=== PATIENT | female | born 1965 | race Caucasian/White ===

== ENCOUNTER 2021-10-24 19:09 | Outpatient (REF) | payer MEDICAID, SELFPAY ==
[2021-10-24 19:46] LABS: HCT 42.3 % (36.0-46.0); HGB 13.5 g/dL (11.2-15.7); MCH 30.7 pg (27.0-33.0); MCHC 31.9 % (32.0-36.0); MCV 96.1 fL (80-95); MPV 9.7 fL (8.0-11.0); Platelet Count 245 10^3/uL (130-400); RDW 13.1 % (11.7-14.6); RDW-SD 46.2 fL; WBC 5.79 10^3/uL (4.4-10.8)
[2021-10-24 20:02] LABS: ALT 23 U/L (14-59); AST 15 U/L (15-37); Albumin 3.6 g/dL (3.4-5.0); Alkaline Phosphatase 117 U/L (46-116); Anion Gap 4.3 mmol/L (3-11); BUN 12 mg/dL (7-18); Bilirubin, Total 0.4 mg/dL (0.2-1.0); CO2 33.7 mmol/L (21.0-32.0); CREATININE 0.8 mg/dL (0.55-1.02); Calcium 8.7 mg/dL (8.5-10.1); Chloride 104 mmol/L (98-107); Glucose 91 mg/dL (74-106); NT-proBNP 265 pg/mL (<300); Potassium 4.1 mmol/L (3.5-5.1); Sodium 142 mmol/L (136-145); Total Protein 6.9 g/dL (6.4-8.2)
[2021-10-27 10:17] LABS: Hepatitis B Surface Ag Negative (Negative)
[2021-10-27 10:38] LABS: Hepatitis C Ab w Rflx HCV PCR Negative (Negative)
== END 2021-10-24 19:10 | disposition home or self-care (01) ==
LOC: NCHCN 19:09
PROVIDERS: PCP General Practice; Visit Provider Family Medicine
DX: R06.02 Shortness of breath (principal); Z13.9 Encounter for screening, unspecified; Z11.59 Encounter for screening for other viral diseases
CPT/HCPCS: 80053; 85027; 86803; 87340; 83880

== ENCOUNTER 2021-12-16 17:56 | Inpatient (IN) | payer MEDICAID, SELFPAY ==
[2021-12-16] VITALS (38 sets, daily range): BP systolic 111–203; BP diastolic 62–98; PULSE 84–118; RESP 4–30; TEMP 36.3–37.5; O2SAT 77–99
--- NOTE | 2021-12-16 18:00 | RT.EKG_ITS ---
APPROVED REPORT Exam: Resting ECG Reason for Exam: SOB Patient Location: E HR:98 bpm ECG Measurements Heart Rate 98 [place]IS [place] [id number] P [id number] QRSd 90 QRS 1 QT 335 T 66 QTc 428 Conclusion Atrial fibrillation...V-rate 95-102, irreg A-activity. Sinus. P waves visible. No STEMI. I have reviewed and interpreted ECG and agree with software generated interpretation.
--- NOTE | 2021-12-16 18:00 | DI.RAD_ITS ---
Exam(s) XR PORTABLE CHEST AP EXAM: XR PORTABLE CHEST AP CLINICAL HISTORY: cough, sob, r/o acute disease TECHNIQUE: COMPARISON: No exams were available for comparison FINDINGS: Portable AP chest [place] [address] angiography was also performed today and showed multiple ground- glass opacities in both lungs. There are predominantly peripheral intrapulmonary infiltrates seen bi laterally on this radiograph, predominantly in right upper lobe and left lower lobe/lingula. Again, the appearance is consistent with multifocal pneumonia. No gross pleural effusion on this frontal fi lm. IMPRESSION: RADIATION DOSE DELIVERED: Total DLP
--- NOTE | 2021-12-16 18:14 | ED.GENADUL_ITS ---
Discharge Plan Disposition Patient Disposition: [facility] INPATIENT Condition: Improving Discharge Details Clinical Impression: SARS-CoV-2 positive, Pneumonia due to 2019 novel coronavirus, Multifocal pneumonia, Hypoxia, Requires supplemental oxygen Admit Date/Time: 12/16/21 19:32 Admit Provider: Denisse Rodriguez Attending Provider: Denisse Rodriguez Primary Care Provider: Jaime Bangura ED Provider: Dorothy Flores Discharge Data Discharge Date/Time-TO BE ENTERED AT DEPARTURE: 12/16/21 23:39 Medical Decision Making 1819 -- 55-year-old female with a history of COPD presents from urgent care for hypoxia of 77% with a report of cough and shortness of breath for the past week. Oxygen saturation 50s on room air on arrival, increased to 97 to 100% on nonrebreather. Patient appears otherwise comfortable, speaking in 3-4 word sentences but does not appear in acute severe respiratory distress. She has diminished breath sounds and wheezing throughout. Differential diagnosis includes acute COPD exacerbation, coronavirus, pneumonia, PE. Will place an IV, bolus IV fluids, screening labs, D-dimer, EKG, portable chest x-ray, COVID swab and give duo nebs, albuterol, Solu-Medrol and reassess. 1899 -- Patient reassessed and breath sounds improved significantly after neb treatments. Oxygen saturation 93% on 4 L nasal cannula. Due to patient's morbid obesity and concern for potential worsening, patient placed on high flow nasal cannula at 30 L/min with 90% FiO2 and oxygen saturation 100%. She was decreased to 55% FiO2 at 60 L/min and oxygen saturation mid 90s. Case discussed with hospitalist who accepts patient for admission. D-dimer and COVID pending. 1914 -- Labs and imaging reviewed. White blood cell count 4. Hemoglobin 12.4. Troponin negative BNP 265. COVID positive. D-dimer 4716. Chest x-ray notes multifocal pneumonia. 1944 -- Dr. Rodriguez again notified of d-dimer results and COVID-positive. CT chest ordered. 2019 -- Pt has remained hemodynamically stable w/ O2 sats mid-high 90s on 60L/min, 55% FiO2 high flow nasal cannula. She appears comfortable and tolerating HFNC well and breathing improved. 2099 -- Case endorsed to Dr. Jackson to follow-up on CT chest results with hospitalist if pt remains in the ED after CT completed. Medical Records Medical records reviewed: Yes I reviewed the patient's medical records. Imaging Data Radiologic Study: Radiologist's impression: XR Chest Exam date and time: 12/16/2021 6:14 PM Age: 55 years old Clinical indication: Cough and shortness of breath; Patient HX: R/O acute disease TECHNIQUE: Imaging protocol: XR of the chest. Views: 1 view. COMPARISON: No relevant prior studies available. FINDINGS: Lungs: Scattered patchy pulmonary opacities, bilaterally. Pleural spaces: Unremarkable. No pleural effusion. No pneumothorax. Heart/Mediastinum: Mild cardiomegaly. Bones/joints: Unremarkable. IMPRESSION: Multifocal pneumonia. Lab Data Lab results reviewed: Yes I reviewed the patient's lab results. Labs: 12/16/21 19:25 Blood Blood Culture - Pending 12/16/21 19:25 Blood Blood Culture - Pending Laboratory Tests Range/Units 12/16/21 12/16/21 12/16/21 18:20 18:30 18:30 WBC (4.4-10.8) 10^3/uL 4.95 RBC (3.93-5.22) 10^6/uL 4.15 Hgb (11.2-15.7) g/dL 12.4 Hct (36.0-46.0) % 39.4 MCV (80-95) fL 94.9 MCH (27.0-33.0) pg 29.9 MCHC (32.0-36.0) % 31.5 L RDW (11.7-14.6) % 14.0 Plt Count (130-400) 10^3/uL 147 MPV (8.0-11.0) fL 9.4 Immature Gran % 0.6 Neutrophils % 72.5 Lymphocytes % 16.6 Monocytes % 9.9 Eosinophils % 0.2 Basophils % 0.2 Nucleated RBC % % 0 Absolute Neutrophils (1.2-6.7) 10^3/uL 3.59 Absolute Lymphocytes (1.2-3.4) 10^3/uL 0.82 L Absolute Monocytes (0.1-0.8) 10^3/uL 0.49 Absolute Eosinophils (0.0-0.7) 10^3/uL 0.01 Absolute Basophils (0.0-0.2) 10^3/uL 0.01 RBC Morphology Normal D-Dimer (<500) ng/mlFEU Sodium (136-145) mmol/L 135 L Potassium (3.5-5.1) mmol/L 4.2 Chloride (98-107) mmol/L 99 Carbon Dioxide (21.0-32.0) mmol/L 28.7 Anion Gap (3-11) mmol/L 7.3 BUN (7-18) mg/dL 15 Creatinine (0.55-1.02) mg/dL 0.7 Estimated GFR/1.73 m2 (mL/min/1.73m2) >= 60.00 Glucose (74-106) mg/dL 93 Calcium (8.5-10.1) mg/dL 8.2 L Magnesium (1.8-2.4) mg/dL 1.8 Total Bilirubin (0.2-1.0) mg/dL 0.6 AST (15-37) U/L 38 H ALT (14-59) U/L 26 Alkaline Phosphatase (46-116) U/L 93 Troponin I (<or=60) ng/L < 50 Total Protein (6.4-8.2) g/dL 7.1 Albumin (3.4-5.0) g/dL 3.3 L COVID-19 Source Nasal/Nares SARS-CoV-2 (PCR) (Negative) POSITIVE A* Influenza Type A (PCR) (Negative) Negative Influenza Type B (PCR) (Negative) Negative RSV (PCR) (Negative) Negative Range/Units 12/16/21 18:30 WBC (4.4-10.8) 10^3/uL RBC (3.93-5.22) 10^6/uL Hgb (11.2-15.7) g/dL Hct (36.0-46.0) % MCV (80-95) fL MCH (27.0-33.0) pg MCHC (32.0-36.0) % RDW (11.7-14.6) % Plt Count (130-400) 10^3/uL MPV (8.0-11.0) fL Immature Gran % Neutrophils % Lymphocytes % Monocytes % Eosinophils % Basophils % Nucleated RBC % % Absolute Neutrophils (1.2-6.7) 10^3/uL Absolute Lymphocytes (1.2-3.4) 10^3/uL Absolute Monocytes (0.1-0.8) 10^3/uL Absolute Eosinophils (0.0-0.7) 10^3/uL Absolute Basophils (0.0-0.2) 10^3/uL RBC Morphology D-Dimer (<500) ng/mlFEU 4716 H Sodium (136-145) mmol/L Potassium (3.5-5.1) mmol/L Chloride (98-107) mmol/L Carbon Dioxide (21.0-32.0) mmol/L Anion Gap (3-11) mmol/L BUN (7-18) mg/dL Creatinine (0.55-1.02) mg/dL Estimated GFR/1.73 m2 (mL/min/1.73m2) Glucose (74-106) mg/dL Calcium (8.5-10.1) mg/dL Magnesium (1.8-2.4) mg/dL Total Bilirubin (0.2-1.0) mg/dL AST (15-37) U/L ALT (14-59) U/L Alkaline Phosphatase (46-116) U/L Troponin I (<or=60) ng/L Total Protein (6.4-8.2) g/dL Albumin (3.4-5.0) g/dL COVID-19 Source SARS-CoV-2 (PCR) (Negative) Influenza Type A (PCR) (Negative) Influenza Type B (PCR) (Negative) RSV (PCR) (Negative) ECG Data Attestation: I personally reviewed and interpreted this ECG (s) as follows: Interpretation: Rate 98, sinus, P waves visible, QRS 90. QTc 428. HPI General Mode of arrival: ambulatory . Date/Time Provider Initiated Documentation: 12/16/21 18:00 . Limitations to Documentation: no limitations . Information obtained by: patient . HPI Narrative: Patient is a 55-year-old female w/ a h/o COPD presents for cough and shortness of breath for the past for the past week. She has been coughing up yellow sputum. Her daughter took her to the urgent care where she was noted to have oxygen saturations in the 70s and advised to come here for further evaluation. Patient is not vaccinated for COVID and denies any known closure to coronavirus. She denies any chest pain, vomiting or diarrhea. She was not given any treatment at urgent care. Related Data Home Medications Medication Instructions Recorded Confirmed buprenorphine-naloxone [Suboxone] 1 film SUBLINGUAL DAILY 12/16/21 12/17/21 buprenorphine-naloxone [Suboxone] 1 film SUBLINGUAL DAILY 12/16/21 12/17/21 apixaban [Eliquis DVT-PE Treat 30D 5 mg PO ONCE #74 dose pk 12/18/21 Start] ascorbic acid (vitamin C) [Vitamin 1,000 mg PO BID #0 tab 12/18/21 C] cholecalciferol (vitamin D3) 2,000 units PO DAILY #0 tab 12/18/21 ipratropium-albuterol [Combivent 1 puff INHALATION QID #1 g 12/18/21 Respimat] prednisone 40 mg PO DAILY #6 tab 12/18/21 Previous Rx's Medication Instructions Recorded apixaban [Eliquis DVT-PE Treat 30D 5 mg PO ONCE #74 dose pk 12/18/21 Start] ascorbic acid (vitamin C) [Vitamin 1,000 mg PO BID #0 tab 12/18/21 C] cholecalciferol (vitamin D3) 2,000 units PO DAILY #0 tab 12/18/21 ipratropium-albuterol [Combivent 1 puff INHALATION QID #1 g 12/18/21 Respimat] prednisone 40 mg PO DAILY #6 tab 12/18/21 Allergies Allergy/AdvReac Type Severity Reaction Status Date / Time No Known Allergies Allergy Unverified 12/16/21 18:20 Review of Systems All systems reviewed & are unremarkable except as noted in HPI and below Constitutional Constitutional: Reports as per HPI, Denies chills and Denies fever(s) Eyes Eyes: Denies blurry vision ENT Ears, Nose, Mouth, and Throat: Denies dizziness, Denies sore throat and Denies throat swelling Cardiovascular Cardiovascular: Denies chest pain and Reports dyspnea Respiratory Respiratory: Reports cough and Reports dyspnea Gastrointestinal Gastrointestinal: Denies abdominal pain, Denies diarrhea and Denies vomiting Genitourinary Genitourinary: Denies hematuria and Denies dysuria Musculoskeletal Musculoskeletal: Denies back pain and Denies numbness Integumentary/Breasts Skin/Breast: Denies lesions and Denies rash Neurologic Neurologic: Denies dizziness, Denies localized weakness and Denies numbness Allergic/Immunologic Allergic/Immunologic: Denies throat swelling PFSH All Active Problems (Updated 12/19/21 @ 00:04 by KHOA FRIEDMAN) Edema of both lower extremities (Acute) Pulmonary embolism (Acute) SARS-CoV-2 positive (Acute) Pneumonia due to 2019 novel coronavirus (Acute) Multifocal pneumonia (Acute) Medical History COPD (chronic obstructive pulmonary disease) 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, on suboxone Hypoxia Morbid obesity Surgical History History of femur fracture hardware in femur Family History Mother Diabetes Father Hypertension Social History Smoking/Tobacco Use Status: Current every day Tobacco Type: cigarettes Smoking packs per day: 0.33 Smoking cigarettes per day: 6.6 Counseling given: provider counseling and support medications Smoking risk assessment performed?: Yes Alcohol Intake: never Substance use type: does not use Exam Const General: cooperative and acute distress respiratory Nutritional Appearance: obese morbidly obese Orientation: alert, awake and oriented x3 HENMT Head: normal to inspection Face and sinus: normal facial exam Eyes General: appearance normal, both eyes and all related structures Pupils: PERRL EOM: EOM intact bilaterally Neck Neck: normal visual inspection and No submandibular swelling Lymphatic: no lymphadenopathy noted Chest Chest: normal inspection of the chest and no tenderness Resp Effort & Inspection: normal respiratory effort and not able to speak in complete sentences (3-4 word sentences) Auscultation: diminished lung sounds bilaterally throughout and wheezes expiratory wheezes and inspiratory wheezes Cardio Rate: regular rate Rhythm: regular rhythm GI Inspection: normal to inspection and obesity Palpation: soft, not firm, not rigid and nontender Auscultation: normal bowel sounds Skin General skin exam: no rashes or lesions noted Neuro General: patient alert, patient awake and patient oriented x3 Cognition: normal cognition Speech: speech normal Motor: muscle tone normal throughout Sensory Exam: no sensory deficits noted Extrem General: normal to inspection, full ROM, capillary refill normal, no calf tenderness bilaterally and no edema Psych Appearance: grossly normal Mental Status: mental status grossly normal Speech and Movement: speech and movement normal Affect: normal affect Critical Care Time Critical Care Time Critical Care Time: Yes Total Critical Care Time: 45 Attestation: I spent 45 minutes of critical care time with this patient. This does not include time spent on separately reported billable procedures.
[2021-12-16] MEDS: Albuterol 2.5 MG/3 ML INH SOLN VIAL 7.5 MG UPD (18:29)
[2021-12-16] MEDS: Albuterol/Ipratropium 3 ML UPD VIAL (18:30)
[2021-12-16] MEDS: methylPREDNISolone SUCC 125 MG VIAL IVP (18:31)
[2021-12-16] MEDS: Normal Saline 1,000 ML 125 ML IV (18:32)
[2021-12-16 18:44] LABS: Source Nasal/Nares
--- NOTE | 2021-12-16 18:48 | NUR.NOTE ---
Nursing Note: Pt states breathing feels better, hi-flow O2 in pqcon0de, currently 96%, covid swab to lab.
[2021-12-16 18:53] LABS: Abs Immature Grans 0.03 10^3/uL (0.0-0.06); Absolute Basophil Count 0.01 10^3/uL (0.0-0.2); Absolute Eosinophil Count 0.01 10^3/uL (0.0-0.7); Absolute Lymphocyte Count 0.82 10^3/uL (1.2-3.4); Absolute Monocyte Count 0.49 10^3/uL (0.1-0.8); Absolute Neutrophil Count 3.59 10^3/uL (1.2-6.7); Basophils % 0.2; Eosinophils % 0.2; HCT 39.4 % (36.0-46.0); HGB 12.4 g/dL (11.2-15.7); Immature Grans % 0.6; Lymphocytes % 16.6; MCH 29.9 pg (27.0-33.0); MCHC 31.5 % (32.0-36.0); MCV 94.9 fL (80-95); MPV 9.4 fL (8.0-11.0); Monocytes % 9.9; Neutrophils % 72.5; Nucleated RBC 0 %; RBC 4.15 10^6/uL (3.93-5.22); RDW-SD 48.9 fL; WBC 4.95 10^3/uL (4.4-10.8)
[2021-12-16 19:09] LABS: ALT 26 U/L (14-59); AST 38 U/L (15-37); Albumin 3.3 g/dL (3.4-5.0); Alkaline Phosphatase 93 U/L (46-116); Anion Gap 7.3 mmol/L (3-11); BUN 15 mg/dL (7-18); Bilirubin, Total 0.6 mg/dL (0.2-1.0); CO2 28.7 mmol/L (21.0-32.0); CREATININE 0.7 mg/dL (0.55-1.02); Calcium 8.2 mg/dL (8.5-10.1); Chloride 99 mmol/L (98-107); Glucose 93 mg/dL (74-106); Magnesium 1.8 mg/dL (1.8-2.4); Potassium 4.2 mmol/L (3.5-5.1); Sodium 135 mmol/L (136-145); Total Protein 7.1 g/dL (6.4-8.2); Troponin I < 50 ng/L (<or=60)
[2021-12-16 19:34] LABS: Diff Comment PLT Morph Reviewed; RBC Morphology Normal
[2021-12-16 19:35] LABS: Platelet Count 147 10^3/uL (130-400)
[2021-12-16 19:45] LABS: Influenza A PCR Negative (Negative); Influenza B PCR Negative (Negative); RSV PCR Negative (Negative)
[2021-12-16 19:52] LABS: D-Dimer 4716 ng/mlFEU (<500)
[2021-12-16 19:56] LABS: COVID-19 PCR POSITIVE (Negative)
--- NOTE | 2021-12-16 19:57 | DI.VRAD_ITS ---
PROCEDURE INFORMATION: Exam: XR Chest Exam date and time: 12/16/2021 6:14 PM Age: 55 years old Clinical indication: Cough and shortness of breath; Patient HX: R/O acute disease TECHNIQUE: Imaging protocol: XR of the chest. Views: 1 view. COMPARISON: No relevant prior studies available. FINDINGS: Lungs: Scattered patchy pulmonary opacities, bilaterally. Pleural spaces: Unremarkable. No pleural effusion. No pneumothorax. Heart/Mediastinum: Mild cardiomegaly. Bones/joints: Unremarkable. IMPRESSION: Multifocal pneumonia. Dictated and Authenticated by: Nicanor Baldwin MD. Ordering:ISRRAEL De La Cruz MD
[2021-12-16 20:20] LABS: Lactate 1.1 mmol/L (0.6-1.4)
[2021-12-16] MEDS: Omnipaque 350 MG/ML 100 ML BTL IJ (20:26)
[2021-12-16] MEDS: Normal Saline Flush 10 ML SYR IVP (20:27)
--- NOTE | 2021-12-16 20:46 | NUR.NOTE ---
Nursing Note: ABG completed, report called to ICU, pt resting on stretcher, awaiting CTA
[2021-12-16 20:52] LABS: BE 3 mmol/L (-2-3); HCO3 28 mmol/L (22-26); pCO2 50 mmHg (35-45); pH 7.36 (7.35-7.45); pO2 67 mmHg (80-105); sO2 93 % (95-98); tCO2 26 mmol/L (23-27)
[2021-12-16 20:55] LABS: Site Left Radial
[2021-12-16 20:56] LABS: FIO2 50 %
--- NOTE | 2021-12-16 20:57 | NUR.NOTE ---
Nursing Note: Pt to radiology for CTA, O2 changed to 4 l/m nc, pt mask maintained, O2 sat 92%.
--- NOTE | 2021-12-16 21:31 | NUR.NOTE ---
Nursing Note: Pt return from radiology, unable to complete exam d/t IV infiltrated, provider aware, warm pack applied to IV site.
[2021-12-16 21:39] LABS: Procalcitonin < 0.1 ng/mL
[2021-12-16 21:46] LABS: Lab Add On Test DONE
[2021-12-16 22:15] LABS: Ferritin 146 ng/mL (8-252)
--- NOTE | 2021-12-16 23:00 | DI.CT_ITS ---
Exam(s) CT CHEST PE CTA EXAM: CT CHEST PE CTA CLINICAL HISTORY: hypoxia, PE. TECHNIQUE: Imaging Protocol: Axial CT angiography was performed with multi-slice acquisition and mu lti-planar and/or 3D reconstructions. CONTRAST MATERIAL: Intravenous: Omnipaque 350 Contrast volume:structured data in ml COMPARISON: No exams were available for comparison FINDINGS: CT angiography of the chest was performed with intravenous infusion of 80 cc of Omnipaque 350. There are bilateral multiple areas ground-glass opacity, most prominent in the right upper lobe perio d right basilar atelectasis and/or consolidation also noted period there appears to be underlying [employer] D.. No pleural effusion. Tracheobronchial tree appears intact. There are emboli in right upper lobe segmental and subsegmental vessels. Question of a few minimal a dditional peripheral tiny emboli in both lungs. There is no evidence of right heart strain. Thoracic aorta is of normal diameter, no thoracic aortic aneurysm or dissection, major branch vessels appear intact. No mediastinal or hilar adenopathy. Images obtained through the upper abdomen show unremarkable appearance of the visualized portions of the liver and spleen. IMPRESSION: Examination is positive for pulmonary embolic disease with low to moderate clot burden, predominantly in right upper lobe pulmonary arterial circulation. No evidence of right heart strain. RADIATION DOSE DELIVERED: 517.44mGy.cm Total DLP 517.44mGy.cm Total DLP 17.63mGy CTDIvol DATA REPOSITORY: All CT scans at this facility are submitted to the National Radiology Data Registry (NRDR) Dose Index Registry (DIR) with the [employer] [place] ([employer]). RADIATION OPTIMIZATION: All CT scans at this facility use at least one of these dose optimization te chniques: automated exposure control; mA and/or kV adjustment per patient size (includes targeted exa ms where dose is matched to clinical indication); or iterative reconstruction.
--- NOTE | 2021-12-16 23:00 | HPE_ITS ---
Date of service: 12/16/21 Time of Service: 23:00 Assessment and Plan Assessment and plan (1) Acute respiratory failure with hypoxia: Status: Acute Assessment and plan: Due to pneumonia due to COVID-19, acute exacerbation of possible COPD with bacterial component (green sputum), suspected underlying C HF/pulmonary hypertension, acute PE. Admitted to ICU. Treat with dexamethasone, remdesivir Encourage IS/Acapella/proning. Supplement vitamin C, D, zinc. Trend inflammatory markers. Treat PE with SC enoxaparin. Will give a dose of lasix tonight. Consider CPAP. Wean O2 as tolerated. Even though procalcitonin is low, will still start antibiotics (doxycycline/ceftriaxone) due to description of the color of the sputum and also appearance c/w cellulitis in RLE. (2) Pneumonia due to 2019 novel coronavirus: Status: Acute Assessment and plan: As above (3) Pulmonary embolism: Status: Acute Assessment and plan: SC enoxaparin. R/o DVT. Obtain echo to assess for RV strain. (4) Acute exacerbation of chronic obstructive pulmonary disease (COPD): Status: Suspected Assessment and plan: As above (5) Edema of both lower extremities: Status: Acute Assessment and plan: R/o DVT with venous dopplers of BLEs. Diurese. Obtain echo. Check TSH/FT4. Treat for what appears to be cellulitis RLE. (6) Drug abuse in remission: Assessment and plan: Continue home suboxone (obtains through [facility] - will need to verify dose). (7) Morbid obesity: Assessment and plan: Check A1C, TSH. I expect that some of this is fluid weight. (8) DVT prophylaxis: Status: Acute Assessment and plan: Sc enoxaparin (9) Discharge planning issues: Status: Acute Assessment and plan: Full code Admit to the ICU. Total Critical Care time 45 minutes. Low threshold to transfer out of the ICU as the O2 requirement is so much better now than it was in the ED. History of Present Illness History of Present Illness Chief Complaint: Shortness of breath Narrative: Ms Beyer is a 55 year old female with PMHx of COPD (per patient; never formally diagnosed), tobacco abuse, opioid dependence on suboxone through [facility], obesity with BMI of 49.6 kg/m2, who is unvaccinated against COVID-19 and was sent to [facility] ED from urgent care for hypoxia of 77% on RA. The patient had reported weakness, fatigue, SOB, and cough productive of green sputum x 4 days - 1 week (the patient states that she is not good with times). In the ED, her room air O2 sat was in the 50% range, and she was wheezing, but not in respiratory distress. She was placed on 100% nonrebreather and received nebulized albuterol as well as solumedrol with O2 sats improving to 97%. She was then converted to humidified heated high flow NC (60L 55% FiO2) with O2 sats in mid 90s. The patient's COVID-19 PCR came back positive. Hospitalist admission was requested. By the time of arrival to the ICU, the patient is on 2.5 L of O2 saturating 89- 90%. She states she feels a lot better. She denies dizziness, chest pain, does not feel short of breath at this time. She states her lower extremity edema is her chronic - at least a year. She states that the pink/red color in the legs is normal for her. She states that she had gained 100 lbs in a year. She just got a PCP, Dr Bangura. Review of Systems All systems reviewed & are unremarkable except as noted in HPI and below PFSH All Active Problems (Updated 12/17/21 @ 00:56 by Denisse Rodriguez MD) Edema of both lower extremities (Acute) Pulmonary embolism (Acute) Discharge planning issues (Acute) DVT prophylaxis (Acute) Acute respiratory failure with hypoxia (Acute) SARS-CoV-2 positive (Acute) Pneumonia due to 2019 novel coronavirus (Acute) Multifocal pneumonia (Acute) Hypoxia (Acute) Requires supplemental oxygen (Acute) Medical History (Updated 12/17/21 @ 00:56 by Denisse Rodriguez MD) COPD (chronic obstructive pulmonary disease) 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, on suboxone Morbid obesity Surgical History (Updated 12/16/21 @ 20:27 by Dorothy Flores DO) History of femur fracture hardware in femur Family History (Updated 12/17/21 @ 00:46 by Denisse Rodriguez MD) Mother Diabetes Father Hypertension Social History (Updated 12/17/21 @ 00:48 by Denisse Rodriguez MD) Smoking/Tobacco Use Status: Current every day Tobacco Type: cigarettes Smoking packs per day: 0.33 Smoking cigarettes per day: 6.6 Counseling given: provider counseling and support medications Smoking risk assessment performed?: Yes Alcohol Intake: never Substance use type: does not use Meds Allergies and Home Medications Allergies Allergy/AdvReac Type Severity Reaction Status Date / Time No Known Allergies Allergy Unverified 12/16/21 18:20 Home Medications Medication Instructions Recorded Confirmed Type buprenorphine-naloxone [Suboxone] 1 film SUBLINGUAL DAILY 12/16/21 12/17/21 History buprenorphine-naloxone [Suboxone] 1 film SUBLINGUAL DAILY 12/16/21 12/17/21 History Exam Narrative Exam Narrative: General: Pleasant obese female who is forgetful and fidgity, playing with her nasal cannula, A&Ox3, no dyspnea/tachypnea/cyanosis while wearing O2 Neurological: A&Ox3, no focal deficits Psychiatric: Appropriate speech pattern/content Skin: erythema BLE's, R>L; no lesions on B feet, no other visible skin abnormalities HEENT: Atraumatic, normocephalic, EOMI, dry MM, clear oropharynx, no submandibular or cervical lymphadenopathy, ?mild goiter, no JVD Cardiovascular: RRR, no m/r/g Lungs: expiratory rhonchi B Gastrointestinal: soft, nontender, nondistended Genitourinary: deferred Extremities: 2+ BLE edema, erythema R>L. +1 pedal pulses. Poor hygiene. Results Imaging Additional studies: EKG: ST, HR 98, no acute ischemia CXR: Multifocal pneumonia. CTA chest: 1. Right upper lobe pulmonary embolism. No evidence of right heart strain. 2. Multifocal pneumonia. Labs Result diagrams: 12/16/21 18:30 12/16/21 18:30 Labs: Laboratory Results - last 24 hr 12/16/21 12/16/21 12/16/21 18:20 18:30 18:30 WBC 4.95 RBC 4.15 Hgb 12.4 Hct 39.4 MCV 94.9 MCH 29.9 MCHC 31.5 L RDW 14.0 Plt Count 147 MPV 9.4 Immature Gran % 0.6 Neutrophils % 72.5 Lymphocytes % 16.6 Monocytes % 9.9 Eosinophils % 0.2 Basophils % 0.2 Nucleated RBC % 0 Absolute Neutrophils 3.59 Absolute Lymphocytes 0.82 L Absolute Monocytes 0.49 Absolute Eosinophils 0.01 Absolute Basophils 0.01 RBC Morphology Normal D-Dimer ABG Sample Site ABG pH ABG pCO2 ABG pO2 ABG HCO3 ABG Total CO2 ABG O2 Saturation ABG Base Excess VBG Lactate FiO2 Sodium 135 L Potassium 4.2 Chloride 99 Carbon Dioxide 28.7 Anion Gap 7.3 BUN 15 Creatinine 0.7 Estimated GFR/1.73 m2 >= 60.00 Glucose 93 Calcium 8.2 L Magnesium 1.8 Ferritin Total Bilirubin 0.6 AST 38 H ALT 26 Alkaline Phosphatase 93 Troponin I < 50 C-Reactive Protein Total Protein 7.1 Albumin 3.3 L Procalcitonin COVID-19 Source Nasal/Nares SARS-CoV-2 (PCR) POSITIVE A* Influenza Type A (PCR) Negative Influenza Type B (PCR) Negative RSV (PCR) Negative Add-On Test Request 12/16/21 12/16/21 12/16/21 18:30 20:00 20:00 WBC RBC Hgb Hct MCV MCH MCHC RDW Plt Count MPV Immature Gran % Neutrophils % Lymphocytes % Monocytes % Eosinophils % Basophils % Nucleated RBC % Absolute Neutrophils Absolute Lymphocytes Absolute Monocytes Absolute Eosinophils Absolute Basophils RBC Morphology D-Dimer 4716 H ABG Sample Site ABG pH ABG pCO2 ABG pO2 ABG HCO3 ABG Total CO2 ABG O2 Saturation ABG Base Excess VBG Lactate 1.1 FiO2 Sodium Potassium Chloride Carbon Dioxide Anion Gap BUN Creatinine Estimated GFR/1.73 m2 Glucose Calcium Magnesium Ferritin Total Bilirubin AST ALT Alkaline Phosphatase Troponin I C-Reactive Protein Total Protein Albumin Procalcitonin < 0.1 COVID-19 Source SARS-CoV-2 (PCR) Influenza Type A (PCR) Influenza Type B (PCR) RSV (PCR) Add-On Test Request DONE 12/16/21 12/16/21 20:00 20:41 WBC RBC Hgb Hct MCV MCH MCHC RDW Plt Count MPV Immature Gran % Neutrophils % Lymphocytes % Monocytes % Eosinophils % Basophils % Nucleated RBC % Absolute Neutrophils Absolute Lymphocytes Absolute Monocytes Absolute Eosinophils Absolute Basophils RBC Morphology D-Dimer ABG Sample Site Left Radial ABG pH 7.36 ABG pCO2 50 H ABG pO2 67 L ABG HCO3 28 H ABG Total CO2 26 ABG O2 Saturation 93 L ABG Base Excess 3 VBG Lactate FiO2 50 Sodium Potassium Chloride Carbon Dioxide Anion Gap BUN Creatinine Estimated GFR/1.73 m2 Glucose Calcium Magnesium Ferritin 146 Total Bilirubin AST ALT Alkaline Phosphatase Troponin I C-Reactive Protein 1.70 H Total Protein Albumin Procalcitonin COVID-19 Source SARS-CoV-2 (PCR) Influenza Type A (PCR) Influenza Type B (PCR) RSV (PCR) Add-On Test Request Last Vital Signs Temp 37.5 C 12/16/21 18:11 Pulse 91 H 12/16/21 21:45 Resp 21 12/16/21 20:20 BP 111/62 12/16/21 21:45 Pulse Ox 87 L 12/16/21 21:45
--- NOTE | 2021-12-16 23:56 | DI.VRAD_ITS ---
Addendum created by Nicanor Baldwin MD on 12/16/2021 11:58:15 PM EST: THIS REPORT CONTAINS FINDINGS THAT MAY BE CRITICAL TO PATIENT CARE. The findings were verbally communicated via telephone conference with Houston Jackson at 11:58 PM EST on 12/16/2021. The findings were acknowledged and understood. Initial report created on 12/16/2021 11:55:53 PM EST: PROCEDURE INFORMATION: Exam: CTA Chest With Contrast Exam date and time: 12/16/2021 11:06 PM Age: 55 years old Clinical indication: Other: Dyspnea, cough, eleated d dimer R/O pe TECHNIQUE: Imaging protocol: Computed tomographic angiography of the chest with contrast. 3D rendering (Not supervised by radiologist): MIP and/or 3D reconstructed images were created by the technologist. Radiation optimization: All CT scans at this facility use at least one of these dose optimization techniques: automated exposure control; mA and/or kV adjustment per patient size (includes targeted exams where dose is matched to clinical indication); or iterative reconstruction. Contrast material: OMNI 350; Contrast volume: 80 ml; Contrast route: INTRAVENOUS (IV); COMPARISON: CT CHEST PE CTA 12/16/2021 9:16 PM FINDINGS: Pulmonary arteries: Right upper lobe pulmonary arterial filling defect, extending peripherally. Aorta: Unremarkable. No aortic aneurysm. No aortic dissection. Lungs: Scattered upper lobe peripheral ground-glass opacities and bibasilar consolidative foci. Pleural spaces: Unremarkable. No pneumothorax. No pleural effusion. Heart: Unremarkable. No cardiomegaly. No pericardial effusion. Heart RV/LV ratio: 0.74 Lymph nodes: Unremarkable. No enlarged lymph nodes. Bones/joints: Orthopedic fixation hardware in the right humeral head. Severe glenohumeral joint degenerative disease on the right. Wedge-shaped fused vertebral bodies in the midthoracic spine. Endplate degenerative spurring throughout the lower thoracic spine. No acute fracture or focal suspicious osseous lesion. Soft tissues: Unremarkable. IMPRESSION: 1. Right upper lobe pulmonary embolism. No evidence of right heart strain. 2. Multifocal pneumonia. Dictated and Authenticated by: Nicanor Baldwin MD. Ordering:CHUY Conrad MD
[2021-12-17] VITALS (21 sets, daily range): BP systolic 100–147; BP diastolic 55–103; PULSE 50–103; RESP 11–25; TEMP 36.4–36.6; O2SAT 86–97
--- NOTE | 2021-12-17 | DI.US_ITS ---
Exam(s) US EXTREMITY VENOUS BI EXAM: US EXTREMITY VENOUS BI CLINICAL HISTORY: PE, edema BLEs. TECHNIQUE: Ultrasound performed using standard protocol. COMPARISON: No exams were available for comparison FINDINGS: Duplex venous ultrasound was performed according to the usual protocol. The deep veins are freely com pressible throughout and there is normal flow augmentation with manual calf compression. 2D and Doppl er evaluation are unremarkable. IMPRESSION: No evidence of deep venous thrombosis of the right or left lower extremity. DATA REPOSITORY:
[2021-12-17] MEDS: REMDESIVIR 200 MG in Normal Saline 250 ML 250 MG IVPB (01:09)
[2021-12-17] MEDS: Melatonin 3 MG TAB PO ×2 (01:09→20:12)
[2021-12-17] MEDS: Enoxaparin 120 MG/0.8 ML SYR 130 MG SC (01:09)
[2021-12-17] MEDS: Furosemide 20 MG/2 ML VIAL IVP ×2 (01:16→08:29)
[2021-12-17] MEDS: Omnipaque 350 MG/ML 100 ML BTL IJ (02:27)
[2021-12-17] MEDS: cefTRIAXone 1 GM/50 ML BAG IVPB (02:30)
[2021-12-17] MEDS: DOXYCYCLINE 100 MG in Normal Saline 100 ML IVPB ×2 (05:19→16:28)
[2021-12-17 07:10] LABS: Abs Immature Grans 0.01 10^3/uL (0.0-0.06); Absolute Lymphocyte Count 0.78 10^3/uL (1.2-3.4); Absolute Monocyte Count 0.17 10^3/uL (0.1-0.8); Absolute Neutrophil Count 3.79 10^3/uL (1.2-6.7); HCT 39.5 % (36.0-46.0); HGB 12.6 g/dL (11.2-15.7); Immature Grans % 0.2; Lymphocytes % 16.4; MCH 30.3 pg (27.0-33.0); MCHC 31.9 % (32.0-36.0); MPV 9.3 fL (8.0-11.0); Monocytes % 3.6; Neutrophils % 79.8; Nucleated RBC 0 %; Platelet Count 160 10^3/uL (130-400); RBC 4.16 10^6/uL (3.93-5.22); RDW 13.9 % (11.7-14.6); RDW-SD 48.1 fL; WBC 4.75 10^3/uL (4.4-10.8)
[2021-12-17 07:26] LABS: Prothrombin Time 10.3 sec (9.3-11.0)
[2021-12-17 07:36] LABS: ALT 20 U/L (14-59); AST 23 U/L (15-37); Alkaline Phosphatase 89 U/L (46-116); Anion Gap 7.3 mmol/L (3-11); BUN 10 mg/dL (7-18); Bilirubin, Direct 0.1 mg/dL (0.0-0.2); Bilirubin, Total 0.3 mg/dL (0.2-1.0); C-Reactive Protein 2.71 mg/dL (0.0-0.3); CO2 27.7 mmol/L (21.0-32.0); CREATININE 0.6 mg/dL (0.55-1.02); Calcium 8.3 mg/dL (8.5-10.1); Chloride 103 mmol/L (98-107); Glucose 132 mg/dL (74-106); Magnesium 1.9 mg/dL (1.8-2.4); PHOSPHORUS 3.3 mg/dL (2.6-4.7); Potassium 4.2 mmol/L (3.5-5.1); Sodium 138 mmol/L (136-145); TSH (W/Ref FT4) 1.75 uIU/mL (0.36-3.74); Total Protein 6.9 g/dL (6.4-8.2)
[2021-12-17 08:01] LABS: D-Dimer 3626 ng/mlFEU (<500)
[2021-12-17 08:11] LABS: Ferritin 152 ng/mL (8-252)
[2021-12-17 08:17] LABS: Hemoglobin A1C 5.1 % (<5.7)
[2021-12-17] MEDS: guaiFENesin 600 MG TABCR PO ×2 (08:30→20:12)
[2021-12-17] MEDS: Cholecalciferol (Vitamin D3) 1,000 UNIT TAB 2000 UNITS PO (08:30)
[2021-12-17] MEDS: Famotidine 20 MG TAB PO ×2 (08:30→20:12)
[2021-12-17] MEDS: Zinc Sulfate 220 MG TAB PO (08:31)
[2021-12-17] MEDS: Dexamethasone 4 MG TAB 6 MG PO (08:31)
[2021-12-17] MEDS: Ascorbic Acid 500 MG TAB 1000 MG PO ×2 (08:31→20:12)
[2021-12-17] MEDS: Buprenorphine/Naloxone 8 mg/2 mg FILM 1 EACH SL (08:32)
--- NOTE | 2021-12-17 08:55 | PUCC_ITS ---
General Date of Service Date of service: 12/17/21 Time of Service: 08:00 Reason for Admission to ICU: COVID Respiratory Failure Assessment and Plan Assessment and plan (1) Pulmonary embolism: Status: Acute (2) Pneumonia due to 2019 novel coronavirus: Status: Acute (3) Edema of both lower extremities: Status: Acute (4) Acute respiratory failure with hypoxia: Status: Acute (5) Drug abuse in remission: Assessment and plan: This is a 55 yo female admitted to the ICU for hypoxic respiratory failure due to COVID. There was concern about COPD, however the lack of emphysema on CT imaging and her very small smoking pack years makes this unlikely. She does have a small segmental PE that is unlikely to be causing any of her hypoxia and is unlikely to be causing right heart strain. I suspect the majority of her symptoms to be due to COVID alone. Her legs are swollen and red but the patient mentions they look the same as they have been for the last few years. That being said with this and her sputum it is not unreasonable to complete a course of antibiotics. She is stable on 4L NC and I believe she is safe to be on med/surg. Recommendations Pulmonary: Hypoxic respiratory failure - continue on nasal cannula - if worsening can consider adding CPAP at night - recommend incentive spirometry and Acapella - sats >90% - ambulation as tolerated - ok to continue Combivent while acutely ill from COVID Cardiac: on suboxone but QTc is normal Renal: No acute concerns I&O: Intake & Output 12/14/21 12/15/21 12/16/21 12/17/21 23:59 23:59 23:59 23:59 Intake Total 775.833 / 775.833 Output Total 700 / 700 Balance 75.833 / 75.833 Weight 129.6 kg Daily Fluid Goal:: negative 1L in 24 hours GI Nutrition: Ok for PO diet Date of Last Bowel Movement: 12/16/21 Infectious Disease: COVID - agree with Decadron and remdesivir - no indications for LORE inhibitors or other cytokine blockers at the moment Bronchitis - ok for 5 day course of doxycycline - likely do not need ceftriaxone - negative procal Concern for cellulitis - seems like legs have chronic issues - will leave to hospitalists service for treatment Hematologic: Acute PE - on therapeutic Lovenox - would continue this until less acutely ill but then can switch to Eliquis or other DOAC - not causing hemodynamic issues - it is small and has a provoking incident - 3-6 months of anti-coagulation - no DVT Neurologic: h/o substance abuce - continue home dose of suboxone Endocrine: monitor daily glucose while on steroids Prophylaxis: Lovenox and famotidine Code Status: Resuscitation Status Full Code Subjective Critical and life-threatening events over the past 24 hours: This is a 55 yo female on suboxone who is admitted for COVID pneumonia. She is unvaccinated and says she never got the vaccine because she did not take is seriously. She thought she would never catch it as she mostly stays at home. She has had some issues with dyspnea but states this started when she gained 100lbs while incarcerated for a year in [place]. She had what sounds like an extensive work up completed in the shelter system. She is a smoker but has less than a 10 pack year history. She also has no emphysema on her chest CT. She said she started feeling ill a few days ago. She is coughing with yellow to green sputum. He is short of breath but is feeling better since receiving treatment. She states her legs look the same as they always have for years. They are no larger or any more red than 'normal'. Exam Const General: no acute distress Nutritional Appearance: obese [facility] Head: normocephalic Ears: external ears normal and no periauricular adenopathy General nose exam: nasal mucous membranes and turbinates normal Face and sinus: sinuses nontender Mouth: oropharynx normal and moist mucous membranes Teeth and gingiva: dentition normal Eyes General: appearance normal, both eyes and all related structures Pupils: PERRL Neck Neck: normal visual inspection and no lymphadenopathy Chest Chest: normal inspection of the chest Resp Effort & Inspection: normal respiratory effort Auscultation: clear to auscultation bilaterally, no rales, rhonchi and no wheezes Cardio Rate: regular rate Rhythm: regular rhythm Heart Sounds: S1 normal, S2 normal and no murmurs Pulses: radial pulses present bilaterally GI Inspection: normal to inspection Palpation: soft Skin General skin exam: no rashes or lesions noted Neuro General: patient alert, patient awake and patient oriented x3 Extrem General: no clubbing, no cyanosis, edema and other (chronic statis dermatitis/lymphedema changes) Psych Mental Status: mental status grossly normal Affect: normal affect Attitude: cooperative Most Recent VS/Results Last Vital Signs Temp 36.6 C 12/17/21 04:24 Pulse 67 12/17/21 06:15 Resp 12 12/17/21 07:50 BP 145/95 H 12/17/21 06:15 Pulse Ox 89 L 12/17/21 07:50 Laboratory Results - last 24 hr 12/16/21 12/16/21 12/16/21 18:20 18:30 18:30 WBC 4.95 RBC 4.15 Hgb 12.4 Hct 39.4 MCV 94.9 MCH 29.9 MCHC 31.5 L RDW 14.0 Plt Count 147 MPV 9.4 Immature Gran % 0.6 Neutrophils % 72.5 Lymphocytes % 16.6 Monocytes % 9.9 Eosinophils % 0.2 Basophils % 0.2 Nucleated RBC % 0 Absolute Neutrophils 3.59 Absolute Lymphocytes 0.82 L Absolute Monocytes 0.49 Absolute Eosinophils 0.01 Absolute Basophils 0.01 RBC Morphology Normal PT INR D-Dimer ABG Sample Site ABG pH ABG pCO2 ABG pO2 ABG HCO3 ABG Total CO2 ABG O2 Saturation ABG Base Excess VBG Lactate FiO2 Sodium 135 L Potassium 4.2 Chloride 99 Carbon Dioxide 28.7 Anion Gap 7.3 BUN 15 Creatinine 0.7 Estimated GFR/1.73 m2 >= 60.00 Glucose 93 Hemoglobin A1c Calcium 8.2 L Phosphorus Magnesium 1.8 Ferritin Total Bilirubin 0.6 Conjugated Bilirubin AST 38 H ALT 26 Alkaline Phosphatase 93 Troponin I < 50 C-Reactive Protein Total Protein 7.1 Albumin 3.3 L Procalcitonin TSH COVID-19 Source Nasal/Nares SARS-CoV-2 (PCR) POSITIVE A* Influenza Type A (PCR) Negative Influenza Type B (PCR) Negative RSV (PCR) Negative Add-On Test Request 12/16/21 12/16/21 12/16/21 18:30 20:00 20:00 WBC RBC Hgb Hct MCV MCH MCHC RDW Plt Count MPV Immature Gran % Neutrophils % Lymphocytes % Monocytes % Eosinophils % Basophils % Nucleated RBC % Absolute Neutrophils Absolute Lymphocytes Absolute Monocytes Absolute Eosinophils Absolute Basophils RBC Morphology PT INR D-Dimer 4716 H ABG Sample Site ABG pH ABG pCO2 ABG pO2 ABG HCO3 ABG Total CO2 ABG O2 Saturation ABG Base Excess VBG Lactate 1.1 FiO2 Sodium Potassium Chloride Carbon Dioxide Anion Gap BUN Creatinine Estimated GFR/1.73 m2 Glucose Hemoglobin A1c Calcium Phosphorus Magnesium Ferritin Total Bilirubin Conjugated Bilirubin AST ALT Alkaline Phosphatase Troponin I C-Reactive Protein Total Protein Albumin Procalcitonin < 0.1 [facility] COVID-19 Source SARS-CoV-2 (PCR) Influenza Type A (PCR) Influenza Type B (PCR) RSV (PCR) Add-On Test Request DONE 12/16/21 12/16/21 12/17/21 20:00 20:41 06:40 WBC RBC Hgb Hct MCV MCH MCHC RDW Plt Count MPV Immature Gran % Neutrophils % Lymphocytes % Monocytes % Eosinophils % Basophils % Nucleated RBC % Absolute Neutrophils Absolute Lymphocytes Absolute Monocytes Absolute Eosinophils Absolute Basophils RBC Morphology PT INR D-Dimer ABG Sample Site Left Radial ABG pH 7.36 ABG pCO2 50 H ABG pO2 67 L ABG HCO3 28 H ABG Total CO2 26 ABG O2 Saturation 93 L ABG Base Excess 3 VBG Lactate FiO2 50 Sodium Potassium Chloride Carbon Dioxide Anion Gap BUN Creatinine Estimated GFR/1.73 m2 Glucose Hemoglobin A1c 5.1 Calcium Phosphorus Magnesium Ferritin 146 Total Bilirubin Conjugated Bilirubin AST ALT Alkaline Phosphatase Troponin I C-Reactive Protein 1.70 H Total Protein Albumin Procalcitonin [facility] COVID-19 Source SARS-CoV-2 (PCR) Influenza Type A (PCR) Influenza Type B (PCR) RSV (PCR) Add-On Test Request 12/17/21 12/17/21 12/17/21 06:40 06:40 06:40 WBC 4.75 RBC 4.16 Hgb 12.6 Hct 39.5 MCV 95.0 MCH 30.3 MCHC 31.9 L RDW 13.9 Plt Count 160 MPV 9.3 Immature Gran % 0.2 Neutrophils % 79.8 Lymphocytes % 16.4 Monocytes % 3.6 Eosinophils % 0.0 Basophils % 0.0 Nucleated RBC % 0 Absolute Neutrophils 3.79 Absolute Lymphocytes 0.78 L Absolute Monocytes 0.17 Absolute Eosinophils 0.00 Absolute Basophils 0.00 RBC Morphology PT 10.3 INR 1.0 D-Dimer 3626 H ABG Sample Site ABG pH ABG pCO2 ABG pO2 ABG HCO3 ABG Total CO2 ABG O2 Saturation ABG Base Excess VBG Lactate FiO2 Sodium 138 Potassium 4.2 Chloride 103 Carbon Dioxide 27.7 Anion Gap 7.3 BUN 10 Creatinine 0.6 Estimated GFR/1.73 m2 >= 60.00 Glucose 132 H Hemoglobin A1c Calcium 8.3 L Phosphorus 3.3 Magnesium 1.9 Ferritin 152 Total Bilirubin 0.3 Conjugated Bilirubin 0.1 AST 23 ALT 20 Alkaline Phosphatase 89 Troponin I C-Reactive Protein 2.71 H Total Protein 6.9 Albumin 3.0 L Procalcitonin TSH 1.75 COVID-19 Source SARS-CoV-2 (PCR) Influenza Type A (PCR) Influenza Type B (PCR) RSV (PCR) Add-On Test Request Review of Systems All systems reviewed & are unremarkable except as noted in HPI and below Time spent with patient Time spent in Critical Care: 45 Time spent in Critical care included: Coordination of care, Chart review, Documenting critically ill care, Time at immediate bedside and Discussing critically ill care with other medical staff
[2021-12-17 10:14] LABS: Bilirubin Negative (Negative); Blood Negative (Negative); Clarity Clear (Clear); Glucose Negative (Negative); Ketones Negative (Negative); Leukocyte Esterase Negative (Negative); Nitrite Negative (Negative); Urobilinogen 0.2 EU/dL (Up TO 0.2)
--- NOTE | 2021-12-17 10:42 | PDOC.CMIN ---
- If Service Date Differs Date of service: 12/17/21 Time of Service: 10:42 Care Management Initial Assess REASON FOR HOSPITALIZATION:: Acute hypoxic respiratory failure, Covid 19 PAST MEDICAL HISTORY/PAST SURGICAL HISTORY:: All Active Problems. Edema of both lower extremities (Acute). Pulmonary embolism (Acute). Discharge planning issues (Acute). DVT prophylaxis (Acute). Acute respiratory failure with hypoxia (Acute). SARS-CoV-2 positive (Acute). Pneumonia due to 2019 novel coronavirus (Acute). Multifocal pneumonia (Acute). Hypoxia (Acute). Requires supplemental oxygen (Acute). Medical History. COPD (chronic obstructive pulmonary disease). Drug abuse in remission. Opiate use in remission, on suboxone. Morbid obesity. Surgical History. History of femur fracture. hardware in femur PREVIOUS FUNCTIONAL STATUS/SOCIAL/FAMILY SUPPORTS:: Carmen lives in an apartment in [facility] with her daughter, Kaya. Per report, she recently relocated to this area after being incarcerated in [place]. She is independent at baseline. CURRENT FUNCTIONAL STATUS:: CM was unable to speak to Carmen today. She did not answer the phone in her room, and when CM attempted to call her cell phone, her daughter answered. Her daughter reported that she does not have O2 at baseline, but her MD at her first check up felt that she may need O2 at some time in the future. Carmen is currently being treated and monitored at ICU level of care. CM will continue to follow. ADVANCE DIRECTIVES:: None on file. Has patient been provided with info about the portal/API?: No Did the patient sign up for the portal?: No CODE STATUS:: Full Code INSURANCE COVERAGE / FINANCIAL ISSUES:: [employer] CURRENT HOME/COMMUNITY SERVICES/EQUIPMENT:: No known services or support. PRIMARY CARE PHYSICIAN:: Nicanor Maria POTENTIAL DISCHARGE NEEDS:: Evaluations for further needs, follow up appointments. PATIENT/FAMILY EDUCATION NEEDS:: Review discharge instructions and limitations, discussion of self care needs including ask me three. ANTICIPATED BARRIERS TO DISCHARGE:: None identified at this time. TRANSPORTATION:: Via private vehicle by family. PLAN:: Anticipate Carmen will return home when medically cleared. Her family will provide transportation when ready. She will follow up with her PCP and discharge plan of care. CM will continue to follow.
[2021-12-17] MEDS: Buprenorphine/Naloxone 12 mg/3 mg FILM 1 EACH SL (11:35)
--- NOTE | 2021-12-17 12:12 | PHA.REVIEW ---
Pharmacy Admission Review - Admission Clinical Review (Last Updated 12/17/21 @ 11:46 by Zuri Shipman MD) Edema of both lower extremities (Acute) Pulmonary embolism (Acute) Discharge planning issues (Acute) DVT prophylaxis (Acute) Acute respiratory failure with hypoxia (Acute) SARS-CoV-2 positive (Acute) Pneumonia due to 2019 novel coronavirus (Acute) Multifocal pneumonia (Acute) Requires supplemental oxygen (Acute) No Known Allergies Allergy (Unverified 12/16/21 18:20) Resuscitation Status Full Code Height 5 ft 5 in Weight 129.6 kg - Renal Dosing Renal Dosing: BUN 10 mg/dL (7-18) 12/17/21 06:40 Creatinine 0.6 mg/dL (0.55-1.02) 12/17/21 06:40 Medications needing adjustments: Reviewed (eCrCl >100 ml/min using abw) - Anticoagulation Anticoagulation: Hgb 12.6 g/dL (11.2-15.7) 12/17/21 06:40 Hct 39.5 % (36.0-46.0) 12/17/21 06:40 Plt Count 160 10^3/uL (130-400) 12/17/21 06:40 INR 1.0 (0.9-1.1) 12/17/21 06:40 Creatinine 0.6 mg/dL (0.55-1.02) 12/17/21 06:40 DVT Prophylaxis: Reviewed Therapeutic Anticoagulation: Reviewed Medications: Enoxaparin - Opiate Usage Evaluate Pain Scale/Pains Meds: Reviewed (daily MAT with suboxone (20mg daily)) - Relevant Labs Sodium 138 mmol/L (136-145) 12/17/21 06:40 Potassium 4.2 mmol/L (3.5-5.1) 12/17/21 06:40 Chloride 103 mmol/L (98-107) 12/17/21 06:40 Phosphorus 3.3 mg/dL (2.6-4.7) 12/17/21 06:40 Magnesium 1.9 mg/dL (1.8-2.4) 12/17/21 06:40 C-Reactive Protein 2.71 mg/dL (0.0-0.3) H 12/17/21 06:40 Electrolytes, C-Reactive P, ESR: Reviewed - DM Control DM Control: Glucose 132 mg/dL (74-106) H 12/17/21 06:40 Hemoglobin A1c 5.1 % (<5.7) 12/17/21 06:40 - Heart Failure/FL Heart Failure/FL: Troponin I < 50 ng/L (<or=60) 12/16/21 18:30 - BP Control BP Control: Blood Pressure 145/95 Blood Pressure 147/103 Blood Pressure 104/55 Blood Pressure 100/60 Blood Pressure 127/77 Blood Pressure 133/82 If elevated: N/A - Qtc Review List meds needing interventions: QTc 428 on admission - IV to PO Switch IV Medications: Reviewed - Home Meds Home Med List reviewed: Reviewed - Current meds Current Medication Order Review: Reviewed (remdesivir, dexamethasone, therapeutic lmwh (PE))
[2021-12-17] MEDS: Ipratropium/Albuterol 4 GM 120 PUFF INH IH ×3 (15:13→20:12)
--- NOTE | 2021-12-17 17:32 | PGE_ITS ---
Date of Service Date of service: 12/17/21 Time of Service: 17:32 Assessment and Plan Assessment and plan (1) Acute respiratory failure with hypoxia: Status: Acute Assessment and plan: Due to pneumonia due to COVID-19, acute exacerbation of possible COPD with bacterial component (green sputum), suspected underlying CHF/pulmonary hypertension, acute PE. Admitted to ICU. Treat with dexamethasone, remdesivir Encourage IS/Acapella/proning. Supplement vitamin C, D, zinc. Trend inflammatory markers. CTA chest showed a small pulmonary emboli. No R heart strain noted. Echocar diogram also without R heart strain. Normal EF. Dose of IV lasix given on admission. Consider CPAP. Wean O2 as tolerated. Now on 4L NC Even though procalcitonin is low, will still start antibiotics (doxycycline/ceftriaxone) due to description of the color of the sputum and also appearance c/w cellulitis in RLE. Pulmonary medicine consulted. (2) Pneumonia due to 2019 novel coronavirus: Status: Acute Assessment and plan: As above (3) Pulmonary embolism: Status: Acute Assessment and plan: SC enoxaparin. No DVT noted on BLE US. No right heart strain per CT and echocardiogram. (4) Acute exacerbation of chronic obstructive pulmonary disease (COPD): Status: Ruled-out Assessment and plan: As above (5) Edema of both lower extremities: Status: Acute Assessment and plan: Ruled out DVT with venous dopplers of BLEs. Diurese. Not cardiogenic/CHF. TSH normal; 1.75. Treat for what appears to be cellulitis RLE. On Rocephin and doxycycline. (6) Drug abuse in remission: Assessment and plan: Continue home suboxone (obtains through [facility] - will need to verify dose). (7) Morbid obesity: Assessment and plan: A1c and TSH normal. . I expect that some of this is fluid weight. (8) DVT prophylaxis: Status: Acute Assessment and plan: Sc enoxaparin (9) Discharge planning issues: Status: Acute Assessment and plan: Full code Admitted to ICU; now med-surg status. . Subjective Subjective Patient reports: tolerating a regular diet and afebrile; denies nausea, vomiting and shortness of breath (on 4L NC) Interval history since last seen: She describes she has been experiencing SOA long before her COVID dx. Hasn't had a formal w/u. Exam Narrative Exam Narrative: Now on 4L per NC Breathing is nonlabored. HR in the 60's. BP 141/67 Objective Last Vital Signs Temp 36.6 C 12/17/21 04:24 Pulse 63 12/17/21 15:36 Resp 12 12/17/21 16:00 BP 141/67 H 12/17/21 15:36 Pulse Ox 91 L 12/17/21 16:00 Laboratory Results - last 24 hr 12/16/21 12/16/21 12/16/21 18:20 18:30 18:30 WBC 4.95 RBC 4.15 Hgb 12.4 Hct 39.4 MCV 94.9 MCH 29.9 MCHC 31.5 L RDW 14.0 Plt Count 147 MPV 9.4 Immature Gran % 0.6 Neutrophils % 72.5 Lymphocytes % 16.6 Monocytes % 9.9 Eosinophils % 0.2 Basophils % 0.2 Nucleated RBC % 0 Absolute Neutrophils 3.59 Absolute Lymphocytes 0.82 L Absolute Monocytes 0.49 Absolute Eosinophils 0.01 Absolute Basophils 0.01 RBC Morphology Normal PT INR D-Dimer ABG Sample Site ABG pH ABG pCO2 ABG pO2 ABG HCO3 ABG Total CO2 ABG O2 Saturation ABG Base Excess VBG Lactate FiO2 Sodium 135 L Potassium 4.2 Chloride 99 Carbon Dioxide 28.7 Anion Gap 7.3 BUN 15 Creatinine 0.7 Estimated GFR/1.73 m2 >= 60.00 Glucose 93 Hemoglobin A1c Calcium 8.2 L Phosphorus Magnesium 1.8 Ferritin Total Bilirubin 0.6 Conjugated Bilirubin AST 38 H ALT 26 Alkaline Phosphatase 93 Troponin I < 50 C-Reactive Protein Total Protein 7.1 Albumin 3.3 L Procalcitonin TSH Urine Color Urine Clarity Urine pH Ur Specific Ferney Urine Protein Urine Ketones Urine Blood Urine Nitrite Urine Bilirubin Urine Urobilinogen Ur Leukocyte Esterase Urine Glucose COVID-19 Source Nasal/Nares SARS-CoV-2 (PCR) POSITIVE A* Influenza Type A (PCR) Negative Influenza Type B (PCR) Negative RSV (PCR) Negative Add-On Test Request 12/16/21 12/16/21 12/16/21 18:30 20:00 20:00 WBC RBC Hgb Hct MCV MCH MCHC RDW Plt Count MPV Immature Gran % Neutrophils % Lymphocytes % Monocytes % Eosinophils % Basophils % Nucleated RBC % Absolute Neutrophils Absolute Lymphocytes Absolute Monocytes Absolute Eosinophils Absolute Basophils RBC Morphology PT INR D-Dimer 4716 H ABG Sample Site ABG pH ABG pCO2 ABG pO2 ABG HCO3 ABG Total CO2 ABG O2 Saturation ABG Base Excess VBG Lactate 1.1 FiO2 Sodium Potassium Chloride Carbon Dioxide Anion Gap BUN Creatinine Estimated GFR/1.73 m2 Glucose Hemoglobin A1c Calcium Phosphorus Magnesium Ferritin Total Bilirubin Conjugated Bilirubin AST ALT Alkaline Phosphatase Troponin I C-Reactive Protein Total Protein Albumin Procalcitonin < 0.1 TSH Urine Color Urine Clarity Urine pH Ur Specific Ferney Urine Protein Urine Ketones Urine Blood Urine Nitrite Urine Bilirubin Urine Urobilinogen Ur Leukocyte Esterase Urine Glucose COVID-19 Source SARS-CoV-2 (PCR) Influenza Type A (PCR) Influenza Type B (PCR) RSV (PCR) Add-On Test Request DONE 12/16/21 12/16/21 12/17/21 20:00 20:41 06:40 WBC RBC Hgb Hct MCV MCH MCHC RDW Plt Count MPV Immature Gran % Neutrophils % Lymphocytes % Monocytes % Eosinophils % Basophils % Nucleated RBC % Absolute Neutrophils Absolute Lymphocytes Absolute Monocytes Absolute Eosinophils Absolute Basophils RBC Morphology PT INR D-Dimer ABG Sample Site Left Radial ABG pH 7.36 ABG pCO2 50 H ABG pO2 67 L ABG HCO3 28 H ABG Total CO2 26 ABG O2 Saturation 93 L ABG Base Excess 3 VBG Lactate FiO2 50 Sodium Potassium Chloride Carbon Dioxide Anion Gap BUN Creatinine Estimated GFR/1.73 m2 Glucose Hemoglobin A1c 5.1 Calcium Phosphorus Magnesium Ferritin 146 Total Bilirubin Conjugated Bilirubin AST ALT Alkaline Phosphatase Troponin I C-Reactive Protein 1.70 H Total Protein Albumin Procalcitonin TSH Urine Color Urine Clarity Urine pH Ur Specific Ferney Urine Protein Urine Ketones Urine Blood Urine Nitrite Urine Bilirubin Urine Urobilinogen Ur Leukocyte Esterase Urine Glucose COVID-19 Source SARS-CoV-2 (PCR) Influenza Type A (PCR) Influenza Type B (PCR) RSV (PCR) Add-On Test Request 12/17/21 12/17/21 12/17/21 06:40 06:40 06:40 WBC 4.75 RBC 4.16 Hgb 12.6 Hct 39.5 MCV 95.0 MCH 30.3 MCHC 31.9 L RDW 13.9 Plt Count 160 MPV 9.3 Immature Gran % 0.2 Neutrophils % 79.8 Lymphocytes % 16.4 Monocytes % 3.6 Eosinophils % 0.0 Basophils % 0.0 Nucleated RBC % 0 Absolute Neutrophils 3.79 Absolute Lymphocytes 0.78 L Absolute Monocytes 0.17 Absolute Eosinophils 0.00 Absolute Basophils 0.00 RBC Morphology PT 10.3 INR 1.0 D-Dimer 3626 H ABG Sample Site ABG pH ABG pCO2 ABG pO2 ABG HCO3 ABG Total CO2 ABG O2 Saturation ABG Base Excess VBG Lactate FiO2 Sodium 138 Potassium 4.2 Chloride 103 Carbon Dioxide 27.7 Anion Gap 7.3 BUN 10 Creatinine 0.6 Estimated GFR/1.73 m2 >= 60.00 Glucose 132 H Hemoglobin A1c Calcium 8.3 L Phosphorus 3.3 Magnesium 1.9 Ferritin 152 Total Bilirubin 0.3 Conjugated Bilirubin 0.1 AST 23 ALT 20 Alkaline Phosphatase 89 Troponin I C-Reactive Protein 2.71 H Total Protein 6.9 Albumin 3.0 L Procalcitonin TSH 1.75 Urine Color Urine Clarity Urine pH Ur Specific Ferney Urine Protein Urine Ketones Urine Blood Urine Nitrite Urine Bilirubin Urine Urobilinogen Ur Leukocyte Esterase Urine Glucose COVID-19 Source SARS-CoV-2 (PCR) Influenza Type A (PCR) Influenza Type B (PCR) RSV (PCR) Add-On Test Request 12/17/21 10:00 WBC RBC Hgb Hct MCV MCH MCHC RDW Plt Count MPV Immature Gran % Neutrophils % Lymphocytes % Monocytes % Eosinophils % Basophils % Nucleated RBC % Absolute Neutrophils Absolute Lymphocytes Absolute Monocytes Absolute Eosinophils Absolute Basophils RBC Morphology PT INR D-Dimer ABG Sample Site ABG pH ABG pCO2 ABG pO2 ABG HCO3 ABG Total CO2 ABG O2 Saturation ABG Base Excess VBG Lactate FiO2 Sodium Potassium Chloride Carbon Dioxide Anion Gap BUN Creatinine Estimated GFR/1.73 m2 Glucose Hemoglobin A1c Calcium Phosphorus Magnesium Ferritin Total Bilirubin Conjugated Bilirubin AST ALT Alkaline Phosphatase Troponin I C-Reactive Protein Total Protein Albumin Procalcitonin TSH Urine Color Yellow Urine Clarity Clear Urine pH 6.0 Ur Specific Ferney 1.020 Urine Protein Negative Urine Ketones Negative Urine Blood Negative Urine Nitrite Negative Urine Bilirubin Negative Urine Urobilinogen 0.2 Ur Leukocyte Esterase Negative Urine Glucose Negative COVID-19 Source SARS-CoV-2 (PCR) Influenza Type A (PCR) Influenza Type B (PCR) RSV (PCR) Add-On Test Request
[2021-12-17] MEDS: REMDESIVIR 100 MG in Normal Saline 250 ML 250 MG IVPB (23:23)
[2021-12-18 03:12] VITALS: RESP 18
[2021-12-18] MEDS: cefTRIAXone 1 GM/50 ML BAG IVPB (03:29)
[2021-12-18] MEDS: DOXYCYCLINE 100 MG in Normal Saline 100 ML IVPB (04:47)
[2021-12-18 05:54] LABS: Vitamin D 25 Total 11.8 ng/mL (30-100)
[2021-12-18] MEDS: Furosemide 20 MG/2 ML VIAL IVP (07:16)
[2021-12-18] MEDS: Dexamethasone 4 MG TAB 6 MG PO (07:16)
[2021-12-18] MEDS: guaiFENesin 600 MG TABCR PO (07:16)
[2021-12-18] MEDS: Ascorbic Acid 500 MG TAB 1000 MG PO (07:16)
[2021-12-18] MEDS: Zinc Sulfate 220 MG TAB PO (07:16)
[2021-12-18] MEDS: Cholecalciferol (Vitamin D3) 1,000 UNIT TAB 2000 UNITS PO (07:17)
[2021-12-18] MEDS: Famotidine 20 MG TAB PO (07:17)
[2021-12-18] MEDS: Buprenorphine/Naloxone 8 mg/2 mg FILM 1 EACH SL (07:17)
[2021-12-18] MEDS: Ipratropium/Albuterol 4 GM 120 PUFF INH IH ×2 (07:25→11:55)
--- NOTE | 2021-12-18 08:40 | PDOC.CMPRO ---
- If Service Date Differs Date of service: 12/18/21 Time of Service: 08:40 Care Management Progress Note S/O: Carmen requires close monitoring and treatment for covid-19. CM met with pt over the phone due to covid precautions. She was pleasant and and easily engaged in conversation, today is her Birthday. Carmen shares that she's feeling better. She took herself off O2 mid morning and her SATS are 93% on RA and she denies SOB. She has no questions or concerns at this time. CM will continue to monitor. A: 56 year old female admitted to [facility] on 12/16/21 for Acute hypoxic respiratory failure, Covid 19 P: Anticipate Carmen will return home when medically cleared. Her family will provide transportation when ready. She will follow up with her PCP and discharge plan of care. CM will continue to follow.
[2021-12-18 08:55] VITALS: O2SAT 94
[2021-12-18] MEDS: Buprenorphine/Naloxone 12 mg/3 mg FILM 1 EACH SL (11:54)
[2021-12-18 11:55] VITALS: O2SAT 93
[2021-12-18 11:56] VITALS: BP 119/90; PULSE 65; RESP 18; TEMP 37.6; O2SAT 93
[2021-12-18 15:00] VITALS: PULSE 53
--- NOTE | 2021-12-18 15:40 | W.PM.DS.N ---
Date of service: 12/18/21 Time of Service: 15:41 DS: Diagnosis Discharge Diagnosis (1) Acute respiratory failure with hypoxia: Status: Acute Asessment and Plan: Maximum supplemental O2 required during hospitalization was 4L NC. No supplemental O2 requirements upon time of D/C. (2) Pneumonia due to 2019 novel coronavirus: Status: Acute Asessment and Plan: Treated with dexamethasone and remdesivir. Supplemented with Vit C, D and zinc. Cont with Vit C and D as outpt;recommended. (3) Pulmonary embolism: Status: Acute Asessment and Plan: Treated with therapeutic Lovenox while in the hospital. D/C on Eliquis. Recommended 4 month of anticoagulation. (4) Acute exacerbation of chronic obstructive pulmonary disease (COPD): Status: Ruled-out Asessment and Plan: Continue Combivent Respimat. F/U with Pulmonary Medicine for evaluation. Prednisone 40mg daily for 3 days. (5) Edema of both lower extremities: Status: Acute Asessment and Plan: No DVT noted on US. Chronic. Likely venous insufficiency and possibly a degree of lymphedema. Weight loss and elevation of lower extremities frequently. (6) Drug abuse in remission: Asessment and Plan: Cont Suboxone. (7) Morbid obesity: Asessment and Plan: Weight management; discuss further with PCP (8) DVT prophylaxis: Status: Acute (9) Discharge planning issues: Status: Acute Discharge Plan Disposition Patient Disposition: HOME Condition: Improving Discharge Details Reason For Visit: Acute Hypoxic Respiratory Failure, COVID-19 Admit Date/Time: 12/16/21 19:32 Admit Provider: Denisse Rodriguez Attending Provider: Denisse Rodriguez Primary Care Provider: Jaime Bangura [facility] Course Hospital Course: Ms Beyer is a 55 year old female with PMHx of COPD (per patient; never formally diagnosed), tobacco abuse, opioid dependence on suboxone through [facility], obesity with BMI of 49.6 kg/m2, who is unvaccinated against COVID-19 and was sent to [facility] ED from urgent care for hypoxia of 77% on RA. The patient had reported weakness, fatigue, SOB, and cough productive of green sputum x 4 days - 1 week (the patient states that she is not good with times). In the ED, her room air O2 sat was in the 50% range, and she was wheezing, but not in respiratory distress. She was placed on 100% nonrebreather and received nebulized albuterol as well as solumedrol with O2 sats improving to 97%. She was then converted to humidified heated high flow NC (60L 55% FiO2) with O2 sats in mid 90s. The patient's COVID-19 PCR came back positive. Hospitalist admission was requested. By the time of arrival to the ICU, the patient was on 2.5 L of O2 saturating 89-90%. She stated she felt much better. She denied dizziness, chest pain, does not feel short of breath at this time. She states her lower extremity edema is her chronic - at least a year. She states that the pink/red color in the legs is normal for her. She states that she had gained 100 lbs in a year. She just got a PCP, Dr Bangura. See problem list for further details. Follow up with PCP in 1-2 weeks. Home Meds and New Rx's Prescriptions: New ascorbic acid (vitamin C) [Vitamin C] 500 mg Tablet 1,000 mg PO BID Qty: 0 RF: 0 cholecalciferol (vitamin D3) 25 mcg (1,000 unit) Tablet 2,000 units PO DAILY Qty: 0 RF: 0 Combivent Respimat 20-100 mcg/actuation Mist 1 puff inhalation QID Qty: 1 RF: 0 prednisone 20 mg tablet 40 mg PO DAILY Qty: 6 RF: 0 Eliquis DVT-PE Treat 30D Start 5 mg (74 tabs) tablets,dose pack 5 mg PO ONCE Qty: 74 RF: 0 Continued buprenorphine-naloxone [Suboxone] 8-2 mg Film 1 film sublingual DAILY RF: 0 buprenorphine-naloxone [Suboxone] 12-3 mg Film 1 film sublingual DAILY RF: 0 Discharge Instructions Instructions: Pulmonary Embolism (DC) Stand Alone Forms: Nursing Discharge Form Referrals: Zuri Shipman MD [ [facility] STAFF PHYSICIAN] - (COVID-19 PNA Concerns for COPD, ISABELLE) Activity:: Activity as Tolerated Equipment/Supplies:: No Equipment Needed Diet:: As Tolerated Discharge Orders Discharge Orders: Discharge Order (Routine); Ordered 12/18/21 Ordered By: Zak Lorenz DS: Summary Time Spent with Patient providing and/or coordinating discharge services: Greater than 30 minutes Status at Discharge Functional status at discharge: independent ambulation Overall status at discharge: patient is progressing back to baseline Mental Status: mental status grossly normal Speech and Movement: speech clear Mood: congruent mood Affect: normal affect Exam Narrative Exam Narrative: Now on RA Breathing is nonlabored. VSS Psych Mental Status: mental status grossly normal Speech and Movement: speech clear Mood: congruent mood Affect: normal affect DS: Data Vitals/I&O Vitals and I&O: Vital Signs Temperature 37.6 C H 12/18/21 11:56 Temperature Source Tympanic 12/18/21 11:56 Pulse 65 12/18/21 11:56 Pulse Rhythm Regular 12/18/21 08:55 Pulse 54 L 12/17/21 20:00 Respiratory Rate 18 12/18/21 11:56 Respiratory Effort Non-Labored 12/18/21 08:55 Respiratory Depth Normal 12/18/21 08:55 Respiratory Pattern Normal 12/18/21 08:55 Blood Pressure 119/90 12/18/21 11:56 Blood Pressure Mean 82 12/17/21 15:36 Blood Pressure Position Supine 12/17/21 04:24 Pulse Oximetry 93 12/18/21 11:56 Oxygen Delivery Method Room Air 12/18/21 11:56 Oxygen Flow Rate 0 12/18/21 11:56 Fraction of Inspired Oxygen (FIO2) 37 12/17/21 15:24 Pain Level 0 12/18/21 11:56 Intake & Output 12/17/21 12/18/21 12/18/21 23:59 11:59 23:59 Intake Total 740 / 1515.833 370 / 570 200 / 570 Output Total 200 / 900 Balance 540 / 615.833 370 / 570 200 / 570 Intake: IV 500 / 795.833 10 / 10 Oral 240 / 720 360 / 560 200 / 560 Output: Urine 200 / 900 Other: Urine Appearance Clear Clear Comment Mixed with stool. Stool Size Moderate Stool Characteristics Soft Formed Data Completed and Pending Labs on day of discharge: Labs from last 24 hours 12/17/21 06:40 25-OH Vitamin D Total 11.8 L Preliminary micro results at discharge 12/16/21 20:24 Blood Culture - Preliminary Blood NO GROWTH 24 HOURS 12/16/21 20:00 Blood Culture - Preliminary Blood NO GROWTH 24 HOURS PFSH All Active Problems Edema of both lower extremities (Acute) Pulmonary embolism (Acute) Discharge planning issues (Acute) DVT prophylaxis (Acute) Acute respiratory failure with hypoxia (Acute) SARS-CoV-2 positive (Acute) Pneumonia due to 2019 novel coronavirus (Acute) Multifocal pneumonia (Acute) Requires supplemental oxygen (Acute) Medical History COPD (chronic obstructive pulmonary disease) 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, on suboxone Hypoxia Morbid obesity Surgical History History of femur fracture hardware in femur Family History Mother Diabetes Father Hypertension Social History Smoking/Tobacco Use Status: Current every day Tobacco Type: cigarettes Smoking packs per day: 0.33 Smoking cigarettes per day: 6.6 Counseling given: provider counseling and support medications Smoking risk assessment performed?: Yes Alcohol Intake: never Substance use type: does not use
== END 2021-12-18 16:45 | disposition home or self-care (01) | DRG 177 ==
LOC: ER 23:45 → ICU 23:48 → MS 12-18 04:32
PROVIDERS: Admitting Provider Internal Medicine; Emergency Provider Physician Assistant; PCP Family Medicine; Visit Provider Internal Medicine
DX: U07.1 COVID-19 (principal); J12.82 Pneumonia due to coronavirus disease 2019; J96.01 Acute respiratory failure with hypoxia; I26.99 Other pulmonary embolism without acute cor pulmonale; J44.0 Chronic obstructive pulmonary disease with (acute) lower respiratory infection; Z68.42 Body mass index [BMI] 45.0-49.9, adult; F11.21 Opioid dependence, in remission; Z79.899 Other long term (current) drug therapy; E66.01 Morbid (severe) obesity due to excess calories; R60.0 Localized edema
CPT/HCPCS: 36415; 71275; 80048; 80053; 80076; 82306; 82805; 84145; 87040; 87637; 93005; 94640; 96361; 96374; 99291; 71045; 81003; 82728; 83036; 83605; 83735; 84100; 84443; 84484; 85025; 85379; 85610; 86140; 93010; 93306; 93970; 94667; 99232; 99239; J0248; J0696; J1650; J1941; J2930; J3490; J7613; J7620; J8540

== ENCOUNTER 2022-02-09 16:26 | Outpatient (REF) | payer MEDICAID, SELFPAY | END 2022-02-09 16:27 | disposition home or self-care (01) | LOC: LBN 16:26 | PROVIDERS: PCP Family Medicine; Visit Provider Family Medicine | DX: R30.0 Dysuria (principal) | CPT/HCPCS: 87077; 87086; 87186 ==

== ENCOUNTER 2022-04-08 17:20 | Outpatient (REF) | payer MEDICAID, SELFPAY ==
[2022-04-08 20:12] LABS: Anion Gap 8.2 mmol/L (3-11); BUN 13 mg/dL (7-18); CO2 29.8 mmol/L (21.0-32.0); CREATININE 0.8 mg/dL (0.55-1.02); Calcium 8.5 mg/dL (8.5-10.1); Chloride 104 mmol/L (98-107); Glucose 113 mg/dL (74-106); Potassium 4.1 mmol/L (3.5-5.1); Sodium 142 mmol/L (136-145)
[2022-04-08 20:53] LABS: Calculated LDL 111 mg/dL (<100); Cholesterol 196 mg/dL (<200); HDL Cholesterol 49 mg/dL (40-60); Triglyceride 180 mg/dL (<150)
== END 2022-04-08 17:21 | disposition home or self-care (01) ==
LOC: NCHCN 17:20
PROVIDERS: PCP Family Medicine; Visit Provider Family Medicine
DX: I10 Essential (primary) hypertension (principal); Z13.220 Encounter for screening for lipoid disorders
CPT/HCPCS: 80048; 80061

== ENCOUNTER 2022-06-12 02:09 | Outpatient (CLI) | payer MEDICAID, SELFPAY ==
--- OUTSIDE RECORDS SUMMARY | 2022-06-12 02:25 | XMS_ITS | Encounter Summary ---
:1965 Author Organization [facility] [place] [address] Care Team Providers Name Role Phone None Primary Care Provider Unavailable Encounter Details Date Type Department Care Team Description 12/06/2013 Orders Only [place] [facility] [place] Oleary MD [facility] [place] [address] ORTHOPAEDIC SURGERY [phone] [place], [place] [address] (Wo rk) Social History Tobacco Use Types Packs/Day Years Used Date Never Assessed Sex Assigned at Date Recorded Not on file documented as of this encounter Plan of Treatment Pending Results Name Type Priority Associated Diagnoses Date/Ti me Film Library- Storage Imaging Routine 2013 11:[address] Lower Extremity documented as of this encounter Visit Diagnoses Not on filedocumented in this encounter Care Teams Attacher Relationship Specialty Start Date End Date None PCP - General 12/11/13 05/07/14 None documented as of this encounter
--- OUTSIDE RECORDS SUMMARY | 2022-06-12 02:25 | XMS_ITS | Encounter Summary ---
:1965 Author Organization [facility] [place] [address] Care Team Providers Name Role Phone None Primary Care Provider Unavailable Encounter Details Date Type Department Care Team Description 12/12/2013 Telephone Orthopaedics at [facility] [place] Jennie Muniz, RN [facility] [place] [address] Social History Tobacco Use Types Packs/Day Years Used Date Never Assessed Sex Assigned at Date Recorded Not on file documented as of this encounter Miscellaneous Notes Telephone Encounter - Jennie Jiménez RN - 12/12/2013 2:32 PM EST TELEPHONE NOTE Responsible Provider: No Ortho assigned, Dr. Oleary lactation coordinator Caller: Dr. Juan A Torres Reason for call: Ms. Beyer sustained a L tibial plateau fracture on 11/29. Dr. Torres did a CT and new XR on 12/06, and is requesting review to see if surgery may be an option. Assessment: Needs provider review. Plan/Instructions: Discussed with [facility]. Does not appear to be appropriate for surgery, would recommend conservative tx in knee immobilizer. documented in this encounter Plan of Treatment Not on filedocumented as of this encounter Visit Diagnoses Not on filedocumented in this encounter Care Teams Wheel Truer Relationship Specialty Start Date End Date None PCP - General 12/11/13 05/07/14 None documented as of this encounter
--- OUTSIDE RECORDS SUMMARY | 2022-06-12 02:25 | XMS_ITS | Encounter Summary ---
:1965 [place] [address] Care Team Providers Name Role Phone Augustus Martin MD Primary Care Provider Encounter Details Date Type Department Care Team Description 04/13/2017 Hospital Encounter Radiology Library at Adelso Diallo MD Pain [facility] [place] [address] [place] [address] [phone] (Wo rk) Social History Tobacco Use Types Packs/Day Years Used Date Never Assessed Sex Assigned at Date Recorded Not on file documented as of this encounter Plan of Treatment Not on filedocumented as of this encounter Procedures Procedure Name Priority Date/Time Associated Diagnosis Comme nts FILM LIBRARY Routine 04/13/2017 12:00 AM Pain Results for this STORAGE ONLY CT EDT procedure ar e in ABDOMEN the results section. documented in this encounter Results Film Library- Storage Only CT Abdomen (04/13/2017 12:00 AM EDT) Specimen (Source) Anatomical Location Collection Method / Collectio n Time Received Time / Laterality Volume Narrative [facility] - 04/16/2017 4:20 PM EDT This exam is for storage only and is aut o-finalizing. Adelso Diallo MD IMG FILM LIBRARY ORDERABLES Performing Organization Address City/State/ZIP Code Phon e Number [place], [place] documented in this encounter Visit Diagnoses Diagnosis Pain Generalized pain documented in this encounter Care Teams Automotive Finance Manager Relationship Specialty Start Date End Date Augustus Martin MD PCP - General 06/08/14 [address] [place] [address] documented as of this encounter
--- OUTSIDE RECORDS SUMMARY | 2022-06-12 02:25 | XMS_ITS | Encounter Summary ---
:1965 [place] [address] Care Team Providers Name Role Phone Augustus Martin MD Primary Care Provider Encounter Details Date Type Department Care Team Description 04/14/2017 Hospital Encounter Radiology Library at Adelso Diallo MD Pain [facility] [place] [address] [place] [address] [phone] (Wo rk) Social History Tobacco Use Types Packs/Day Years Used Date Never Assessed Sex Assigned at Date Recorded Not on file documented as of this encounter Plan of Treatment Not on filedocumented as of this encounter Procedures Procedure Name Priority Date/Time Associated Diagnosis Comme nts FILM LIBRARY Routine 04/14/2017 12:00 AM Pain Results for this STORAGE ONLY MR EDT procedure ar e in SPINE the results section. documented in this encounter Results Film Library- Storage Only MR Spine (04/14/2017 12:00 AM EDT) Specimen (Source) Anatomical Location Collection Method / Collectio n Time Received Time / Laterality Volume Narrative [facility] - 04/16/2017 4:18 PM EDT This exam is for storage only and is aut o-finalizing. Adelso Diallo MD IMG FILM LIBRARY ORDERABLES Performing Organization Address City/State/ZIP Code Phon e Number [place], [place] documented in this encounter Visit Diagnoses Diagnosis Pain Generalized pain documented in this encounter Care Teams Equipment Records Supervisor Relationship Specialty Start Date End Date Augustus Martin MD PCP - General 06/08/14 [address] [place] [address] documented as of this encounter
--- OUTSIDE RECORDS SUMMARY | 2022-06-12 02:25 | XMS_ITS | Encounter Summary ---
:1965 [place] [address] Care Team Providers Name Role Phone Augustus Martin MD Primary Care Provider Encounter Details Date Type Department Care Team Description 04/14/2017 Hospital Encounter Radiology Library at Adelso Diallo MD Pain [facility] [place] [address] [place] [address] [phone] (Wo rk) Social History Tobacco Use Types Packs/Day Years Used Date Never Assessed Sex Assigned at Date Recorded Not on file documented as of this encounter Plan of Treatment Not on filedocumented as of this encounter Procedures Procedure Name Priority Date/Time Associated Diagnosis Comme nts FILM LIBRARY Routine 04/14/2017 12:05 AM Pain Results for this STORAGE ONLY CT EDT procedure ar e in SPINE the results section. documented in this encounter Results Film Library- Storage Only CT Spine (04/14/2017 12:05 AM EDT) Specimen (Source) Anatomical Location Collection Method / Collectio n Time Received Time / Laterality Volume Narrative [facility] - 04/16/2017 4:19 PM EDT This exam is for storage only and is aut o-finalizing. Adelso Diallo MD IMG FILM LIBRARY ORDERABLES Performing Organization Address City/State/ZIP Code Phon e Number [place], [place] documented in this encounter Visit Diagnoses Diagnosis Pain Generalized pain documented in this encounter Care Teams Brake Reliner Relationship Specialty Start Date End Date Augustus Martin MD PCP - General 06/08/14 [address] [place] [address] documented as of this encounter
--- OUTSIDE RECORDS SUMMARY | 2022-06-12 02:25 | XMS_ITS | Encounter Summary ---
:1965 Author Organization [facility] [place] [address] Care Team Providers Name Role Phone Augustus Martin MD Primary Care Provider Reason for Referral Diagnostic Test (Routine) - Closed Specialty Diagnoses / Procedures Referred By Contact Refer red To Contact Cardiology Diagnoses Pulmonary embolism, unspecified chronicity, unspecified pulmonary embolism type, unspecified whether acute cor pulmonale present Lower extremity edema Denisse Rodriguez MD [facility] Non-Inv Card Lab Procedures Mobile Echo [address] [place], [place] [id number] [place] [phone] Fax: Referral ID Status Reason Start Date Expiration Date Visits V isits Requested Authorized [id number] Closed Specialty 12/17/2021 12/17/2022 1 1 Service Requested Reason for Visit Diagnostic Test (Routine) - Closed Specialty Diagnoses / Procedures Referred By Contact Refer red To Contact Cardiology Diagnoses Pulmonary embolism, unspecified chronicity, unspecified pulmonary embolism type, unspecified whether acute cor pulmonale present Lower extremity edema Denisse Rodriguez MD [facility] Non-Inv Card Lab Procedures Mobile Echo [address] [facility] [id number] [place] [phone] Fax: Referral ID Status Reason Start Date Expiration Date Visits V isits Requested Authorized [id number] Closed Specialty 12/17/2021 12/17/2022 1 1 Service Requested Encounter Details Date Type Department Care Team Description 12/17/2021 Hospital Encounter Mobile Denisse Rodriguez Pulmonar y embolism, unspecified chronicity, unspecified pulmonary embolism type, unspecified whether acute cor pulmonale present; Echocardiography MD Alice Lower extremity edema [facility] [address] [place] [address] [phone] Social History Tobacco Use Types Packs/Day Years Used Date Current Every Day Smoker Cigarettes 0.5 10 Smokeless Tobacco: Never Used Alcohol Use Standard Drinks/Week Comments No 0 (1 standard drink = 0.6 oz pure alcoho l) Sex Assigned at Date Recorded Not on file documented as of this encounter Medications at Time of Discharge Medication Sig Dispensed Refills Start Date End Date HYDROmorphone (DILAUDID) 2 Take 1 tablet by 20 tablet 0 mg Tablet mouth every 4 hours as needed for Pain. senna-docusate Take 2 tablets by 60 tablet 11 04/23/2017 (PERICOLACE) 8.6-50 mg mouth 2 times daily. Tablet ibuprofen (ADVIL;MOTRIN) Take 1 tablet by 30 tablet 12 04/23 600 mg Tablet mouth 4 times daily. rifAMPin (RIFADIN) 300 mg Take 1 capsule by 56 capsule 0 Capsule mouth 2 times daily. documented as of this encounter Plan of Treatment Not on filedocumented as of this encounter Procedures Procedure Name Priority Date/Time Associated Comments Diagnosis ECHOCARDIOGRAM COMPLETE Routine 12/17/2021 12:33 Pulmonary emb olism, Results for this PM EST unspecified procedure are i n chronicity, the results unspecified section. pulmonary embolism type, unspecified whether acute cor pulmonale presen t Lower extremity edema documented in this encounter Results ECHOCARDIOGRAM COMPLETE (12/17/2021 12:33 PM EST) P athologist Signature EF 60 [facility] Specimen (Source) Anatomical Location Collection Method / Collectio n Time Received Time / Laterality Volume 12/17/2021 Narrative [facility] - 12/17/2021 1:22 PM EST Procedure: ?Transthoracic Echocardiogram Patient: ?Pepito Martinez ? (Age): 1965(55y) Med Rec#: ? [id number] ?Sex: ?F ? Site Loc: ? [facility] ??H t / Wt: ??165.1(cm)/134.7 Pt. Loc: ?ICU ? BSA: ?2.34 Study Date: ?? 12/17/2021 ?Pt. Type: Inpatient Tape: ? Referring: KADEN Reading: Isaías Chirinos ([id number]) Milk Truck Driver: NANI Milk Truck Driver: NANI Milk Truck Driver: NANI Interpreting Fellow: Ernesto Anderson ([id number] ) Diagnosis: *Other pulmonary embolism without acute cor pulmonale (I26.99) *Coronavirus infection, unspecified (B3 4.2) BP: ? 145/95 SUMMARY: 1. This is a very technically limited st udy done supine in the ICU. 2. The left ventricle chamber size and w all thickness are normal. ??There is normal global LV function with an eje ction fraction visually estimated at 55-60% and no wall motion a bnormalities. 3. The right ventricle is normal in stru cture and function. The pulmonary artery systolic pressure is 31 mmHg. 4. No hemodynamically significant valvul ar disease. 5. The pericardium appears normal and th ere is no evidence of a pericardial effusion. 6. There is no prior echocardiogram for comparison. Findings ? : Study Quality: ? Technically limited Left Ventricle: ? The left ventricul ar chamber size is normal. ?Left ventricular wall thickness is normal. ?There is no evidence of LVOT obstr uction. ?There is normal global left ventri cular systolic function. ?The visually estimated left ventri cular ejection fraction is 55-60%. ?There are no left ventricular segm ental wall motion abnormalities. ?Left ventricular diastolic functio n is normal. Left Atrium: ? The left atrium is no rmal in size. Right Ventricle: ? The right ventric le is normal in size. ?Right ventricular global systolic function is normal. ?The estimated pulmonary artery sys tolic pressure is 31 mmHg. ?The estimated right atrial pressur e is 3 mmHg. Right Atrium: ? The right atrium is normal in size. Aortic Valve: ? The aortic valve is trileaflet. The leaflets are thin with normal excursion. There is no aorti c stenosis or regurgitation present. Mitral Valve: ? The mitral valve sam flets appear normal. ?There is mitral annular calcificat ion. ?There is trace mitral regurgitatio n present. Tricuspid Valve: ? The tricuspid armando ve leaflets are morphologically normal. ?There is mild (1+/4+) tricuspid re gurgitation present. Pulmonic Valve: ? The pulmonic valve appears normal in structure and function. ?There is no evidence of pulmonic r egurgitation. Pericardium: ? The pericardium appea rs normal and there is no evidence of a pericardial effusion. Aorta: ? The ascending aorta is norm al in size. Venous: ? The inferior vena cava krystina ears normal in size. ?There is a greater than 50% respir atory change in the inferior vena cava dimension. Misc: ? Two-dimensional echo, spectr al Doppler and color Doppler performed. Chambers 2D ?Value ?Units (Range) ? IVSd (2D) ? 0.82 ? cm ? LVPWd (2D) ?0.82 ? cm ? IVS:LVPW ratio (2D) 1 ?ratio ? LVIDd (2D) ?4.73 ? cm ? LVIDs (2D) ?3.24 ? cm ? LV FS (2D) ?31.56 ?% ? EF Teichholz (2D) ?? 59.46 ?% ? Ascending Ao ?3.1 ?cm (2 - 3.5) ? Volumes/Mass ?Value ?Units (Range) ? LA ESV BP (A/L) inde23.97 ? ml/m2 ? LV ESV SP 4CH (MOD) 52.69 ? ml ? LV ESV SP 2CH (MOD) 44.96 ? ml ? LV EDV BP ? 116.02 ? ml ? LV ESV BP ? 50.04 ?ml ? BP EF (MOD) ? 56.87 ?% ? Diastolic/Systolic Function ?Value ?Units (Range) ? MV E-wave Vmax ?0.81 ? m/sec ? MV deceleration nqxe402.17 ? m sec ? MV A-wave Vmax ?0.57 ? m/sec ? MV E:A ratio ?1.43 ? ratio ? LV septal e' Vmax ?? 0.11 ? m/sec ? LV lateral e' Vmax ??0.15 ? m/sec ? LV E:e' septal ratio7.27 ? ratio ? LV E:e' lateral rati5.47 ? ratio ? Aortic Valve ?Value ?Units (Range) ? AV Vmax ? 1.64 ? m/sec ? AV VTI ?34.18 ?cm ? AV peak gradient ?10.73 ?mmHg ? AV mean gradient ?5.34 ? mmHg ? LVOT diameter ? 1.79 ? cm ? LVOT Vmax ? 1.18 ? m/sec ? LVOT VTI ?25.37 ?cm ? CO LVOT ? 4.14 ? l/min ? ARMANDO (continuity Vmax1.82 ? cm2 ? ARMANDO (continuity Vmax0.78 ? cm2/m2 ? ARMANDO (continuity VTI)0.8 ?cm2/m2 ? Mitral Valve ?Value ?Units (Range) ? MV VTI ?19.72 ?cm ? MV PHT ?75.74 ?msec ? MVA (PHT) ? 2.9 ?cm2 ? Tricuspid Valve ?Value ?Units (Range) ? TR Vmax ? 2.63 ? m/sec ? TR peak gradient ?27.62 ?mmHg ? RAP ? 3 ?mmHg ? RVSP ?31 ? mmHg ? Pulmonic Valve/Qp:Qs ?Value ?Units (Range) ? PV Vmax ? 1.1 ?m/sec ? PV VTI ?24.21 ?cm ? PV peak gradient ?4.84 ? mmHg ? PV mean gradient ?2.93 ? mmHg ? RVOT Vmax ? 0.66 ? m/sec ? RVOT VTI ?14.92 ?cm ? RVOT peak gradient ??1.76 ? mmHg ? PV acceleration time87.02 ? msec ? PV ejection time ?290.07 ? msec ? PV AT:ET ?0.3 ?ratio ? This report has been electronically sign ed by: _ Isaías Chirinos M.D. ? 12/17/2021 13:22:12 Images reviewed and interpretation [facility]on [facility] Procedure Note Isaías Chirinos MD - 12/17/2021Formatti ng of this note might be different from the original. Procedure: Transthoracic Echocardiogram Patient: Beyer Carmen BUTLER(Age): (55y) Med Rec#: [id number] Sex: F Site Loc: [facility] Ht / Wt: 165.1(cm)/134.7 Pt. Loc: ICU BSA: 2.34 Study Date: 12/17/2021 Pt. Type: Inpatie nt Tape: Referring: KADEN Reading: Isaías Chirinos ([id number]) Milk Truck Driver: NANI Milk Truck Driver: NANI Milk Truck Driver: NANI Interpreting Fellow: Ernesto Anderson ([id number] ) Diagnosis: *Other pulmonary embolism without acute cor pulmonale (I26.99) *Coronavirus infection, unspecified (B3 4.2) BP: 145/95 SUMMARY: 1. This is a very technically limited st udy done supine in the ICU. 2. The left ventricle chamber size and w all thickness are normal. There is normal global LV function with an eje ction fraction visually estimated at 55-60% and no wall motion a bnormalities. 3. The right ventricle is normal in stru cture and function. The pulmonary artery systolic pressure is 31 mmHg. 4. No hemodynamically significant valvul ar disease. 5. The pericardium appears normal and th ere is no evidence of a pericardial effusion. 6. There is no prior echocardiogram for comparison. Findings : Study Quality: Technically limited Left Ventricle: The left ventricular rema mber size is normal. Left ventricular wall thickness is norm al. There is no evidence of LVOT obstructio n. There is normal global left ventricular systolic function. The visually estimated left ventricular ejection fraction is 55-60%. There are no left ventricular segmental wall motion abnormalities. Left ventricular diastolic function is normal. Left Atrium: The left atrium is normal i n size. Right Ventricle: The right ventricle is normal in size. Right ventricular global systolic funct ion is normal. The estimated pulmonary artery systolic pressure is 31 mmHg. The estimated right atrial pressure is 3 mmHg. Right Atrium: The right atrium is normal in size. Aortic Valve: The aortic valve is trilea flet. The leaflets are thin with normal excursion. There is no aorti c stenosis or regurgitation present. Mitral Valve: The mitral valve leaflets appear normal. There is mitral annular calcification. There is trace mitral regurgitation pre sent. Tricuspid Valve: The tricuspid valve sam flets are morphologically normal. There is mild (1+/4+) tricuspid regurgi tation present. Pulmonic Valve: The pulmonic valve appea rs normal in structure and function. There is no evidence of pulmonic regurg itation. Pericardium: The pericardium appears nor mal and there is no evidence of a pericardial effusion. Aorta: The ascending aorta is normal in size. Venous: The inferior vena cava appears n ormal in size. There is a greater than 50% respiratory change in the inferior vena cava dimension. Misc: Two-dimensional echo, spectral Dop pler and color Doppler performed. Chambers 2D Value Units (Range) IVSd (2D) 0.82 cm LVPWd (2D) 0.82 cm IVS:LVPW ratio (2D) 1 ratio LVIDd (2D) 4.73 cm LVIDs (2D) 3.24 cm LV FS (2D) 31.56 % EF Teichholz (2D) 59.46 % Ascending Ao 3.1 cm (2 - 3.5) Volumes/Mass Value Units (Range) LA ESV BP (A/L) inde23.97 ml/m2 LV ESV SP 4CH (MOD) 52.69 ml LV ESV SP 2CH (MOD) 44.96 ml LV EDV BP 116.02 ml LV ESV BP 50.04 ml BP EF (MOD) 56.87 % Diastolic/Systolic Function Value Units (Range) MV E-wave Vmax 0.81 m/sec MV deceleration pprk725.17 msec MV A-wave Vmax 0.57 m/sec MV E:A ratio 1.43 ratio LV septal e' Vmax 0.11 m/sec LV lateral e' Vmax 0.15 m/sec LV E:e' septal ratio7.27 ratio LV E:e' lateral rati5.47 ratio Aortic Valve Value Units (Range) AV Vmax 1.64 m/sec AV VTI 34.18 cm AV peak gradient 10.73 mmHg AV mean gradient 5.34 mmHg LVOT diameter 1.79 cm LVOT Vmax 1.18 m/sec LVOT VTI 25.37 cm CO LVOT 4.14 l/min ARMANDO (continuity Vmax1.82 cm2 ARMANDO (continuity Vmax0.78 cm2/m2 ARMANDO (continuity VTI)0.8 cm2/m2 Mitral Valve Value Units (Range) MV VTI 19.72 cm MV PHT 75.74 msec MVA (PHT) 2.9 cm2 Tricuspid Valve Value Units (Range) TR Vmax 2.63 m/sec TR peak gradient 27.62 mmHg RAP 3 mmHg RVSP 31 mmHg Pulmonic Valve/Qp:Qs Value Units (Range) PV Vmax 1.1 m/sec PV VTI 24.21 cm PV peak gradient 4.84 mmHg PV mean gradient 2.93 mmHg RVOT Vmax 0.66 m/sec RVOT VTI 14.92 cm RVOT peak gradient 1.76 mmHg PV acceleration time87.02 msec PV ejection time 290.07 msec PV AT:ET 0.3 ratio This report has been electronically sign ed by: _ Isaías Chirinos M.D. 12/17/2021 13:22 :12 Images reviewed and interpretation verif ied [facility] Denisse Rodriguez MD ECHO ORDERABLES Performing Organization Address City/State/ZIP Code Phon e Number [facility] documented in this encounter Visit Diagnoses Diagnosis Pulmonary embolism, unspecified chronici ty, unspecified pulmonary embolism type, unspecified whether acute cor pulmonale present Lower extremity edema Edema documented in this encounter Care Teams Data Services Developer Relationship Specialty Start Date End Date Augustus Martin MD PCP - General 06/08/[address] [place] [id number] documented as of this encounter
--- OUTSIDE RECORDS SUMMARY | 2022-06-12 02:25 | XMS_ITS | Encounter Summary ---
:1965 Author Organization [facility] [place] [address] Care Team Providers Name Role Phone Augustus Martin MD Primary Care Provider Encounter Details Date Type Department Care Team Description 04/19/2017 Orders Only [facility] Discitis [place] [phone] Social History Tobacco Use Types Packs/Day Years Used Date Current Every Day Smoker Cigarettes 0.5 10 Smokeless Tobacco: Never Used Alcohol Use Standard Drinks/Week Comments No 0 (1 standard drink = 0.6 oz pure alcoho l) Sex Assigned at Date Recorded Not on file documented as of this encounter Progress Notes [facility]ara [facility] RN - 04/19/2017 12:23 PM EDT T spine Xray order placed. Xray and SC trauma FU appt made (1 hr visit with Mr Mondragon In ~ 1 mo). Pt an inpt so appt info will print on discharge summary. documented in this encounter Plan of Treatment Not on filedocumented as of this encounter Visit Diagnoses Diagnosis Discitis of thoracic region Other and unspecified disc disorder of t horacic region documented in this encounter Care Teams Motion Picture Projectionist Apprentice Relationship Specialty Start Date End Date Augustus Martin MD PCP - General 06/08/14 [address] [place] [address] documented as of this encounter
--- OUTSIDE RECORDS SUMMARY | 2022-06-12 02:25 | XMS_ITS | Encounter Summary ---
:1965 [place] [address] Care Team Providers Name Role Phone Augustus Martin MD Primary Care Provider Encounter Details Date Type Department Care Team Description 04/15/2017 Hospital Encounter Radiology Library at Adelso Diallo MD Pain [facility] [place] [address] [place] [address] [phone] (Wo rk) Social History Tobacco Use Types Packs/Day Years Used Date Never Assessed Sex Assigned at Date Recorded Not on file documented as of this encounter Plan of Treatment Not on filedocumented as of this encounter Procedures Procedure Name Priority Date/Time Associated Diagnosis Comme nts FILM LIBRARY Routine 04/15/2017 12:00 AM Pain Results for this STORAGE ONLY CT EDT procedure ar e in SPINE the results section. documented in this encounter Results Film Library- Storage Only CT Spine (04/15/2017 12:00 AM EDT) Specimen (Source) Anatomical Location Collection Method / Collectio n Time Received Time / Laterality Volume Narrative [facility] - 04/16/2017 4:16 PM EDT This exam is for storage only and is aut o-finalizing. Adelso Diallo MD IMG FILM LIBRARY ORDERABLES Performing Organization Address City/State/ZIP Code Phon e Number [place], [place] documented in this encounter Visit Diagnoses Diagnosis Pain Generalized pain documented in this encounter Care Teams Speech Professor Relationship Specialty Start Date End Date Augustus Martin MD PCP - General 06/08/14 [address] [place] [address] documented as of this encounter
--- OUTSIDE RECORDS SUMMARY | 2022-06-12 02:25 | XMS_ITS | Encounter Summary ---
:1965 [place] [address] Care Team Providers Name Role Phone Augustus Martin MD Primary Care Provider Reason for Visit Auth/Cert Specialty Diagnoses / Procedures Referred By Contact Refer red To Contact Diagnoses Back pain UNSTABLE T7+T8 COMPRESSION FXS / DISCITIS Procedures EMERGENCY IPI Referral ID Status Reason Start Date Expiration Date Visits Requ ested Visits Authorized 1 1 Encounter Details Date Type Department Care Team Description 04/17/2017 - Hospital Encounter 5 [facility] Delmer Mcarthur, [place] [address] Discitis of 04/23/2017 [facility] Juan [place] [address] [place] [id number] Social History Tobacco Use Types Packs/Day Years Used Date Current Every Day Smoker Cigarettes 0.5 10 Smokeless Tobacco: Never Used Alcohol Use Standard Drinks/Week Comments No 0 (1 standard drink = 0.6 oz pure alcoho l) Sex Assigned at Date Recorded Not on file documented as of this encounter Last Filed Vital Signs Vital Sign Reading Time Taken Comments Blood Pressure 198/75 04/23/2017 6:29 AM EDT Pulse 80 04/22/2017 5:00 PM EDT Temperature 36 ??C (96.8 ??F) 04/23/2017 6:29 AM EDT Respiratory Rate 18 04/23/2017 6:29 AM EDT Oxygen Saturation 98% 04/23/2017 6:29 AM EDT Inhaled Oxygen Concentration - - Weight 108.9 kg (240 lb) 04/17/2017 7:45 PM EDT Height 165.1 cm (5' 5) 04/17/2017 7:45 PM EDT Body Mass Index 39.94 04/17/2017 7:45 PM EDT documented in this encounter Discharge Summaries Juan Miguel Bermudez MD - 04/23/2017 4:41 PM EDT Discharge Summary Patient Name: Carmen Beyer Patient Age: 51 y.o. Language: Macedonian Race: White Ethnicity: Not nor Admit date: 04/17/2017 Discharge date and time: 04/23/2017 4:37 PM Attending Physician: Juan Miguel Bermudez MD Discharge Physician: Juan Miguel Bermudez MD Follow-up Recommendations for Providers: - Obtain weekly CMP and CRP to trend for treatment efficacy (CRP on admission was 64.8) Inpatient Provider Contact Information: For questions regarding this document or issues relating to this hospitalization on the Medical Service, please contact your inpatient physician through the [facility] [place] [facility] . Issues after hours and on weekends will be handled by the Hospitalist staff on-call. Discharge Diagnoses (Hospital Problems) and Secondary Diagnoses (Chronic Problems): Active Hospital Problems Diagnosis ??? 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 Back pain, acute on chronic Resolved Hospital Problems Diagnosis Date Resolved No resolved problems to display. There are no active non-hospital problems to display for this patient. Operations/Major Procedures: Operations: 04/19: EXAMINATION: CT GUIDED BIOPSY BONE CLINICAL HISTORY: T7-8 Osteo, need culture samples FINDINGS: ??After informed written consent was obtained, the patient was placed prone on the CT fluoroscopy table. Due to the painful nature of the procedure, moderate sedation was given to the patient via intravenous administration of Versed and fentanyl with continuous monitoring of vital signs. Noncontrast images of the thoracic spine were obtained. The area overlying the left T7 pedicle was sterilely prepped and draped. Approximately 5 cc of 1% lidocaine was used for local anesthetic . Under realtime CT fluoroscopy, a 13-gauge Rebecca needle system was advanced through the left T7 pedicle into the T7 vertebral body using intermittent CT fluoroscopic guidance. These were sent for culture and surgical pathology. At this point, the needle was removed. The patient tolerated the procedure well and there were no immediate complications. IMPRESSION Technically successful T7 vertebral body bone biopsy PICC placement and removal 04/23: PICC placement Procedure Details: Order received for catheter placement. A 4 Fr. single lumen Bard Power catheter was placed into the right basilic vein over a 0.018 inch guidewire using modified seldinger technique and fluoroscopy. Arm circumference was 43 cm at 2 cm above the insertion site. Final catheter length (with trimming): 42 cm ??Internal: 42 cm ??External: 0 cm Tip in SVC per DR EVANS. The line was not placed over a guidewire. 04/23: PICC removal PICC was removed successfully. History of Presentation: 51 yo female h/o opiate abuse, OA, chronic back pain, kidney stones, presented to [facility] on 04/14/17 with left flank pain and initial concern for recurrent kidney stone. CT performedsuggestive of T7-T8 destructive changes concerning for discitis. The patient stated chronic back pain history, but more acute ~1 month prior to her presentation. Because of this acute pain, she purchased street heroine and snorted in the hope of easing her discomfort. Around this time, she also acquired Suboxone on the streets as additional measure to control her pain. The patient denied recent IV drug use. No associated fevers/chills, night sweats, numbing/tingling sensation in extremities, body rash, unexplained weight loss, but did note shortness of breath arrested by acute exacerbated back pain. While hospitalized at [facility], the patient underwent CT-guided T7-T8 disc aspiration on 04/15/19 with prelim negative cultures as were surveillance blood cultures obtained on 04/14/17. Of note, the patient was started on empiric IV Vanco and Cefepime because of her initial vague report of fevers/chills. ESR=34 and CRP=54 Urine drug screen positive for opiate and again the patient recently had heroine and suboxone. NeuroSurgery (Dr. Anuel Strauss) contacted Spine (Dr. Adelso Diallo) for transfer request on 04/16 to address proposed intervention for her spine abnormality and hope for mechanical stabilization. At time of her arrival to on 04/17/17, the patient remained afebrile withhemodynamic stability and no other new neuro SxS. Her only complaint was back pain (8 out of 10, localized mid-back at T7-T8) and she requested her next dose of oxycodone. Of note, the patient is s/p DAVIN/BSO in 2003 with reported colo then by her as being unremarkable, no recent bowel changes (tarry black stools, etc), and no prior mammography. Hospital Course: #Vertebral osteomyelitis Throughout hospital course patient remained afebrile and hemodynamically stable. She underwent additional imaging including MRI of the lumbar spine which showed no evidence of discitis osteomyelitis complex, and XR thoracic spine suggested progressive destructive changes due to discitis at T7-8. Empiric antibiotics were withheld due to her stable condition and lack of culture. She underwent a repeat CT-guided biopsy of T7-T8 which after several days eventually resulted coagulase negative staphylococcus. AFB stain was negative; culture at [facility] is pending from [facility], estimated result in 8 weeks; aerobic and anearobic cultures were negative; fungal calcifluorin stain was negative and fungal culture at [facility] was negative. She was begun on empiric IV vancomycin for coagulase negative staphylococcus. A PICC was placed with the plan for long-term outpatient IVvancomycin; however, on day of discharge the culture sensitivities resulted sensitivity to levofloxacin and rifampin, and so PICC was removed and plan was changed to PO antibiotics in order to avoid risks associated with PICC use. Patient will be followed by [facility] [place] [place] Infectious Disease. #Pain control #History of opiate abuse She was in considerable pain due to her vertebral osteomyelitis during this hospitalization. We eventually achieved good pain control with Hydromorphone 2 mg Q4 hours PRN on top of scheduled Tylenol 650 mg Q6 and scheduled Ibuprofen 600 mg Q6. In addition, due to her flank pain which may have been neuropathic in origin, we started pregabalin 50 mg TID to good effect. Pain control will be an ongoing issue after discharge and should be managed carefully with consideration of her history of opiate abuse. Patient does not have established primary care at this time and was undecided about doing so, so we have discharged her with a short course of opioids only. Pregabalin could be restarted in the future once her insurance situation is stable. #Blood Pressure Throughout her hospital course her blood pressure was often in hypertensive range. Given her condition this was difficult to discern between primary hypertension and hypertension as a result of pain/her infection. This should be followed up as an outpatient. #Insurance The patient has [place]. Due to her inability to afford medications, we provided her with a 2 week supply of her antibiotics at discharge, along with prescriptions to complete the next 4 weeks. She reported that she will be able to afford these medications once she receives her next paycheck. Vital Signs at Discharge: BP: 198/75, Heart Rate: 80, Temp: 36 ??C (96.8 ??F), Resp: 18, BMI (Calculated): 40 Height: 165.1 cm (5' 5) (04/17/171944) Weight - Scale: (!) 108.9 kg (240 lb) (04/17/171944) Functional and Cognitive Status: Good Important Studies and Lab Data: Labs: Last 3 wbc, hgb, hct plt Recent Labs 04/20/17 0547 04/19/17 0638 04/18/17 0552 WBC 5.3 4.9 4.6 HGB 11.6* 11.8 12.3 HCT 34.5* 35.0* 34.8* PLATELET 236 223 237 Last 3 Lytes Recent Labs 04/22/17 2149 04/20/17 0547 04/19/17 0638 NA 141 143 143 K 4.1 3.5 3.6 CL 103 104 104 CO2 27 25 25 BUN 17 14 16 CREATININE 0.74 0.47* 0.52* Last CRP, SEDRATE Recent Labs 04/17/17 1849 CRP 64.8* SEDRATE 55* Studies: Imaging: TECHNIQUE: Lumbar spine MRI noncontrast followed by contrast material 11 cc gadavist FINDINGS: There is a convex left scoliosis of the lumbar spine and a compensatory rightward curve at the LS junction with asymmetric disc degenerative changes greater on the concave sides the curve, on the right at L2-3, L3-4 and on the left at L4-5 and L5-S1. These degenerative changes are characterized by disc space narrowing, endplate proliferative and reactive changes. Vertebral bodies are maintained in height. There is also extensive facet arthropathy greater on the concave sides the curve. There is bilateral pars defects at L5 with minimal anterolisthesis of L5 on S1, greater on the left. ?? No aggressive marrow lesions. Conus demonstrates normal size shape and signal intensity and terminates appropriately at T12-L1. The visualized portion of the SI joints is unremarkable. ?? There is no evidence of fluid signal within the intervertebral disc spaces or at the endplates to suggest discitis osteomyelitis complex. The endplate reactive changes are observed to the areas of disc space narrowing and proliferative change associated with scoliosis. ?? The paraspinous soft tissues are unremarkable. There is no abdominal aortic aneurysm. ?? No mass or abnormal enhancement post gadolinium. ?? T12-L1: Mild right paracentral disc protrusion with very mild effacement of the ventral thecal sac. No stenosis. Mild bilateral foraminal narrowing. ?? L1-2: Facet arthropathy bilaterally. There is narrowing of the subarticular recess bilaterally right greater than left. There is a mild annular bulge with mild effacement of the ventral thecal sac. Mild right foraminal and far lateral protrusion present. Mild right and mild left foraminal narrowing present. ?? L2-3: Facet arthropathy, right greater than left. Narrowing of the right subarticular recess as a result on image 18 series 6. There is a moderate right and mild left foraminal narrowing due to asymmetric endplate proliferative change and disc space narrowing as well as a right-sided disc material associated with endplate proliferative change. ?? L3-4: Facet arthropathy with mild effacement of the posterior thecal sac. Minimal annular bulge. Moderate right and mild left foraminal narrowing. ?? L4-5: Extensive facet arthropathy with mild overall canal stenosis. Narrowing of the right subarticular recess present. There is moderate bilateral foraminal narrowing. ?? L5-S1: There is similar mild effacement of the thecal sac at the level of the pars defects with some proliferative change greater on the left best seen on image 32 series 6. There is no significant central stenosis. Moderate bilateral foraminal narrowing present. ?? IMPRESSION No evidence of discitis osteomyelitis complex in the lumbar spine. Degenerative changes associated with scoliosis with with asymmetric appearance greater on the concave sides the curve. Bilateral pars defects L5. TECHNIQUE: AP and lateral thoracic spine FINDINGS: There appears to be progressive erosion of the T7 and T8 endplates due to progressive discitis. There is associated increased focal kyphosis at this level. Remaining thoracic vertebral body heights appear stable. There is stable mild anterior wedging of the T11 vertebral body. ?? IMPRESSION Limited comparison to CT scan turning lathe tender suggests progressive destructive changes due to discitis at T7-8 with increased focal kyphosis at this level. EXAMINATION: XR CHEST PA AND LATERAL (GENERIC) FINDINGS: Streaky bibasilar subsegmental atelectasis and/or scarring. Nonspecific prominence of the RIGHT hilum, felt to be superimposition of normal structures based on CT thoracic spine April 14, 2017. No confluent airspace opacity identified. Small pleural effusions with adjacent atelectasis. Cardiomediastinal contours within normal limits. Midthoracic discitis osteomyelitis better appreciated on prior CT and MRI. ?? IMPRESSION Small pleural effusions. Micro: Results for CARMEN BEYER ( ) as of 04/23/2017 15:33 Ref. Range 04/20/2017 18:42 HIV-1/2 Ab and Ag Latest Ref Range: Negative Negative Results for CARMEN BEYER ( ) as of 04/23/2017 15:33 Ref. Range 04/20/2017 18:42 Quantiferon-TB Latest Ref Range: Negative Negative Results for CARMEN BEYER ( ) as of 04/23/2017 15:33 Ref. Range 04/20/2017 18:42 Hepatitis C Ab Latest Ref Range: Negative Negative Urine: Recent Labs 04/20/17 1732 URINECULTURE 1,000-9,000 cfu/ml Gram Negative Rods* Bone Culture (Abnormal) Rare Coagulase negative Staphylococcus species ? Gram Stain (Abnormal) Moderate White Blood Cells seen No microorganisms seen. Sensitivity for Coagulase negative Staph from Bone Culture: Amoxicillin + Clavulanate Resistant ? Ampicillin Resistant ? Ampicillin + Sulbactam Resistant ? Cefazolin Resistant ? Ceftriaxone Resistant ? Ciprofloxacin Sensitive ? Clindamycin Resistant ? Daptomycin Sensitive ? Erythromycin Resistant ? Gentamicin Sensitive 1 ? Levofloxacin Sensitive ? Oxacillin Resistant ? Penicillin Resistant ? Rifampin Sensitive ? Tetracycline Sensitive ? Trimethoprim/Sulfa Resistant ? Vancomycin Sensitive Other Bone Cultures: Acid Fast Bacilli Culture No growth to date. Acid Fast Stain No Acid Fast Bacilli seen Calcofluor Stain Calcofluor White Preparation: Negative Anaerobic Culture No anaerobic organisms isolated Pending Studies and Lab Data: AFB Cultures take up to 8 weeks. Discharge to: Home Updated Allergies/ADRs: No Known Allergies Immunizations Given this Hospitalization: There is no immunization history on file for this patient. Discharge Medications: Your Medications New Medications Dose Details HYDROmorphone 2 mg Tab Commonly known as: DILAUDID Take 1 tablet by mouth every 4 hours as needed for Pain. 2 mg Quantity: 20 tablet Refills: 0 ibuprofen 600 mg Tab Commonly known as: ADVIL;MOTRIN Take 1 tablet by mouth 4 times daily. 600 mg Quantity: 30 tablet Refills: 12 levoFLOXacin 750 mg Tab Commonly known as: LEVAQUIN Take 1 tablet by mouth every morning for 14 days. 750 mg Quantity: 28 tablet Refills: 0 rifAMPin 300 mg Cap Commonly known as: RIFADIN Take 1 capsule by mouth 2 times daily. 300 mg Quantity: 56 capsule Refills: 0 senna-docusate 8.6-50 mg Tab Commonly known as: PERICOLACE Take 2 tablets by mouth 2 times daily. 2 tablet Quantity: 60 tablet Refills: 11 Smoking Status at Discharge: History Smoking Status ??? Current Every Day Smoker ??? Packs/day: 0.50 ??? Years: 10.00 ??? Types: Cigarettes Smokeless Tobacco ??? Never Used Instructions Given to Patient at Discharge: Patient Instructions Instructions from Internal Medicine: Instruction after leaving the hospital Why you were hospitalized: You were hospitalized because you have an infection of your spine. We arenow treating this with antibiotics which you will complete at home. Please follow through with your scheduled appointments with Infectious Disease and Orthopedics as detailed in this form. Call your doctor or seek medical attention if you develop the following: Fever, sweating, chills, vomiting, chest pain or palpitations, or diarrhea for more than 2 days Activity level: At your pace. Diet: Regular diet. Specific Instructions: 1. Please have your labs checked weekly. Order forms have been provided. 2. For hydromorphone beyond 20 tabs you will need to find a primary care provider who can prescribe these for you. We cannot provide any refills. 3. While using any narcotic pain medications, we recommend over the counter laxative as well. These have been prescribed as Medicaid will sometimes cover them. Your Inpatient Doctor(s) at [facility] [place] [place]: Juan Miguel Bermudez MD Orthopedics Instructions: Activity: 1. Routine daily activities as tolerated, but no bending, or twisting and do not lift anything greater than 5-10 pounds (the size of a gallon milk jug). 2. Wear the TLSO brace at all times whenever you are mobilizing. When you are in bed or chair, the TLSO can be removed. Remember to inspect your skin when this is removed for any areas of redness. TLSO care: 1. DO clean you orthosis to prevent bacteria build-up and skin irritation. You should clean the brace easily with mild soap and water and towel dried. When you shower with the brace on the velcro straps will be the only parts that absorb water. 2. DO wear a type of cotton T-shirt between the brace and your skin. Change daily as needed. 3. DO NOT get out of bed without your brace on unless it is cleared with your Orthopedic surgeon. Driving: NO driving while you are on narcotic pain medications OR if you are in pain OR with your brace in place. These all can affect your judgement and reaction time - contact the Spine Center ([phone]) with any questions or clinic issues. Medications: Continue to take the tylenol around the clock for the next 7-10 days. It can be effective in controlling pain along with your other medications. Shower/bath with brace/collar: You need to shower with the TLSO/Hard cervical collar on. After the shower, remove the brace/collar carefully following the guidelines above for removal. Dry your skin and the brace/collar carefully. The brace/collar should be completely dry before you put it back on. Replace the brace while lying flat in bed OR Replace the collar with another person holding your head steady. Remember, if your TLSO is off you should be lying flat in bed. You should NOT have it off if you aresitting up or walking. Call your doctor : ? ? You have a fever > 101.5 ??? Chills or night sweats ??? Persistent nausea/vomiting ??? Increased pain not controlled by your pain meds ??? Numbness or tingling in your hands or feet ??? Incontinence of bowel or bladder. If you have any questions call: ??? Clinical or Nurse issues: [phone] ??? Medication renewal: [phone] ??? Appointments for Dr. Diallo: [phone] FOLLOWUP APPOINTMENTS: 1. You will have followup appointments at [facility] [place] [place] as indicated in Future Appointment and Orders. You will have an xray prior to those appointments so please come to Radiology, desk 3T, 1 hour BEFORE your appointment for those x-rays. 2. If you do not have a scheduled appointment with Orthopaedics, you should be notified about your appointment within the next 1-2 days. Please call if you do not hear about an appointment within that timeframe, as your follow-up is important to us. Future Appointments Date Time Provider Department Center 05/13/2017 12:00 PM [facility] DX ROOM 3 Xray [facility] 05/13/2017 1:00 PM Sam Mondragon PA [facility] General Instructions [facility] Vascular and Interventional Radiology Biopsy Discharge Instructions ??? Bone biopsy: call your doctor immediately if you develop a sudden onset of weakness, increased pain or swelling at the biopsy site or heavy bleeding at the biopsy site. ??? Activity And Diet: ??? Go home and rest quietly for the remainder of the day. You may resume your normal activities tomorrow. ??? Resume your usual diet after the procedure. ??? Do not drive, sign any important/legal documents, or make any important decisions for 24 hours following sedation medications. When to call your healthcare provider: ??? If you see any redness, swelling or drainage at the biopsy site. ??? If you develop chills. ??? If you have a fever greater than or equal to 101 degrees Fahrenheit. ??? If you develop pain around the biopsy site. Bandage: ??? Check the dressing/bandaid throughout the day for an increase in drainage. Keep the biopsy site dry for 24 hours. Replace the bandaid as needed. You may shower 24 hours after the biopsy. Medication: ??? DO NOT take aspirin-containing products, ibuprofen, or blood-thinning medication for the next 24hours unless your doctor says you may do so. ??? Generally you may use acetaminophen as needed for discomfort unless you have liver disease and are instructed not to take acetaminophen. Biopsy Results ??? The results of your biopsy should be available within 5 business days and will be reported to you by your primary healthcare technician or the clinician who ordered the biopsy. Please do not call us for results as we will not have them. ??? If you have not been contacted by your clinician within 5 business days you should call that office for further information. When to call the Interventional Radiology Department: Please call with any questions or concerns. Ifit is during regular office hours, please call [phone]. If it is after regular office hours, oron weekends or holidays, please call [phone] and ask to speak to the Assembly Machine Tender on callfor Interventional Radiology. You have received medication during your procedure to help lessen anxiety and keep you comfortable.These medications affect judgement and reaction time. We recommend that you do not drive, operate equipment, sign any important documents, or smoke unattended for 24 hours following your procedure. Because of the sedation, be careful on stairs, as you may be unsteady on your feet. You may resume your regular diet as tolerated. IV site -- slight redness, or tenderness is normal, you can use a warm compress. If tenderness and redness increases or foul drainage occurs, please contact your M. D. Revised 12/13/15 Future Appointments and Orders Future Appointments Provider Department Dept Phone 05/13/2017 12:00 PM [facility] DX ROOM 3 [facility] Xray [phone] Please go to Hospital Nursing Assistant Area 3T ([place] Location). 05/13/2017 1:00 PM Sam Mondragon PA [facility] [phone] Future Orders Complete By Expires Comprehensive metabolic panel (non-fasting) [LAB17 Custom] 04/30/2017 (Approximate) 07/22/2017 Process Instructions: INCLUDES: Calcium, T Protein, Albumin, AST, ALT, Alk Phos, T Bili, D Bili, BUN, Creat, GFR, Glucose, Lytes Scheduling Instructions: Comments: Weekly until instructed by ID to stop Please FAX results to [phone] Call any critical results to Dr. Nicanor Loyola [phone] Questions: CRP, acute inflammation [[id number] Custom] 04/30/2017 10/30/2017 Process Instructions: Scheduling Instructions: Comments: Weekly until instructed by ID to stop Please FAX results to [phone] Call any critical results to Dr. Nicanor Loyola [phone] Questions: Discharge References/Attachments None documented in this encounter Discharge Instructions Discharge InstructionsNicole Robert RN - 04/19/2017 5:01 PM EDT [facility] [facility] Vascular and Interventional Radiology Biopsy Discharge Instructions ??? Bone biopsy: call your doctor immediately if you develop a sudden onset of weakness, increased pain or swelling at the biopsy site or heavy bleeding at the biopsy site. ??? Activity And Diet: ??? Go home and rest quietly for the remainder of the day. You may resume your normal activities tomorrow. ??? Resume your usual diet after the procedure. ??? Do not drive, sign any important/legal documents, or make any important decisions for 24 hours following sedation medications. When to call your healthcare provider: ??? If you see any redness, swelling or drainage at the biopsy site. ??? If you develop chills. ??? If you have a fever greater than or equal to 101 degrees Fahrenheit. ??? If you develop pain around the biopsy site. Bandage: ??? Check the dressing/bandaid throughout the day for an increase in drainage. Keep the biopsy site dry for 24 hours. Replace the bandaid as needed. You may shower 24 hours after the biopsy. Medication: ??? DO NOT take aspirin-containing products, ibuprofen, or blood-thinning medication for the next 24hours unless your doctor says you may do so. ??? Generally you may use acetaminophen as needed for discomfort unless you have liver disease and are instructed not to take acetaminophen. Biopsy Results ??? The results of your biopsy should be available within 5 business days and will be reported to you by your primary healthcare technician or the clinician who ordered the biopsy. Please do not call us for results as we will not have them. ??? If you have not been contacted by your clinician within 5 business days you should call that office for further information. When to call the Interventional Radiology Department: Please call with any questions or concerns. Ifit is during regular office hours, please call [phone]. If it is after regular office hours, oron weekends or holidays, please call [phone] and ask to speak to the Assembly Machine Tender on callfor Interventional Radiology. You have received medication during your procedure to help lessen anxiety and keep you comfortable.These medications affect judgement and reaction time. We recommend that you do not drive, operate equipment, sign any important documents, or smoke unattended for 24 hours following your procedure. Because of the sedation, be careful on stairs, as you may be unsteady on your feet. You may resume your regular diet as tolerated. IV site -- slight redness, or tenderness is normal, you can use a warm compress. If tenderness and redness increases or foul drainage occurs, please contact your M. D. Revised 12/13/15 Patient InstructionsJuan Miguel Bermudez MD - 04/20/2017 6:13 AM EDT Instructions from Internal Medicine: Instruction after leaving the hospital Why you were hospitalized: You were hospitalized because you have an infection of your spine. We arenow treating this with antibiotics which you will complete at home. Please follow through with your scheduled appointments with Infectious Disease and Orthopedics as detailed in this form. Call your doctor or seek medical attention if you develop the following: Fever, sweating, chills, vomiting, chest pain or palpitations, or diarrhea for more than 2 days Activity level: At your pace. Diet: Regular diet. Specific Instructions: 1. Please have your labs checked weekly. Order forms have been provided. 2. For hydromorphone beyond 20 tabs you will need to find a primary care provider who can prescribe these for you. We cannot provide any refills. 3. While using any narcotic pain medications, we recommend over the counter laxative as well. These have been prescribed as Medicaid will sometimes cover them. Your Inpatient Doctor(s) at [facility] – [place]: Juan Miguel Bermudez MD Orthopedics Instructions: Activity: 1. Routine daily activities as tolerated, but no bending, or twisting and do not lift anything greater than 5-10 pounds (the size of a gallon milk jug). 2. Wear the TLSO brace at all times whenever you are mobilizing. When you are in bed or chair, the TLSO can be removed. Remember to inspect your skin when this is removed for any areas of redness. TLSO care: 1. DO clean you orthosis to prevent bacteria build-up and skin irritation. You should clean the brace easily with mild soap and water and towel dried. When you shower with the brace on the velcro straps will be the only parts that absorb water. 2. DO wear a type of cotton T-shirt between the brace and your skin. Change daily as needed. 3. DO NOT get out of bed without your brace on unless it is cleared with your Orthopedic surgeon. Driving: NO driving while you are on narcotic pain medications OR if you are in pain OR with your brace in place. These all can affect your judgement and reaction time - contact the Spine Center ([phone]) with any questions or clinic issues. Medications: Continue to take the tylenol around the clock for the next 7-10 days. It can be effective in controlling pain along with your other medications. Shower/bath with brace/collar: You need to shower with the TLSO/Hard cervical collar on. After the shower, remove the brace/collar carefully following the guidelines above for removal. Dry your skin and the brace/collar carefully. The brace/collar should be completely dry before you put it back on. Replace the brace while lying flat in bed OR Replace the collar with another person holding your head steady. Remember, if your TLSO is off you should be lying flat in bed. You should NOT have it off if you aresitting up or walking. Call your doctor : ? ? You have a fever > 101.5 ??? Chills or night sweats ??? Persistent nausea/vomiting ??? Increased pain not controlled by your pain meds ??? Numbness or tingling in your hands or feet ??? Incontinence of bowel or bladder. If you have any questions call: ??? Clinical or Nurse issues: [phone] ??? Medication renewal: [phone] ??? Appointments for Dr. Diallo: [phone] FOLLOWUP APPOINTMENTS: 1. You will have followup appointments at [facility] [place] as indicated in Future Appointment and Orders. You will have an xray prior to those appointments so please come to Radiology, desk 3T, 1 hour BEFORE your appointment for those x-rays. 2. If you do not have a scheduled appointment with Orthopaedics, you should be notified about your appointment within the next 1-2 days. Please call if you do not hear about an appointment within that timeframe, as your follow-up is important to us. Future Appointments Date Time Provider Department Center 05/13/2017 12:00 PM [facility] DX ROOM 3 Xray [facility] 05/13/2017 1:00 PM Sam Mondragon PA Leb Spine [facility] documented in this encounter Medications at Time of Discharge Medication Sig Dispensed Refills Start Date End Date HYDROmorphone (DILAUDID) Take 1 tablet by 20 tablet 0 04/23 2 mg Tablet mouth every 4 hours as needed for Pain. senna-docusate Take 2 tablets by 60 tablet 11 04/23/2017 (PERICOLACE) 8.6-50 mg mouth 2 times Tablet daily. ibuprofen (ADVIL;MOTRIN) Take 1 tablet by 30 tablet 12 04/23 600 mg Tablet mouth 4 times daily. rifAMPin (RIFADIN) 300 mg Take 1 capsule by 56 capsule 0 Capsule mouth 2 times daily. levoFLOXacin (LEVAQUIN) Take 1 tablet by 28 tablet 0 201605/07/2017 750 mg Tablet mouth every morning for 14 days. documented as of this encounter Progress Notes Cordelia Alexandra - 04/23/2017 4:47 PM EDT ANGELA AlexandraRN,BSN pgr [phone] Plan is for patient to discharge today. She will be going home on two PO antibiotics. Case management has set up a ride for her at approximately 1730 at the [facility] ([employer]). Jeniffer Atwood OT - 04/23/2017 1:05 PM EDT Attempted to work with pt to address LB dressing goals. Pt declined to work with therapy stating I'm all set, I'm going home today. Pt offered AE and instruction on use for LB dressing; pt declined. OT will follow up with pt tomorrow if not d/c today. Pager: [phone] JEANETTE ARTEAGA/Lucrecia Occupational Therapy Rehabilitation Department Mark Louie MD - 04/23/2017 12:18 PM EDT INFECTIOUS DISEASE FOLLOW-UP NOTE Active ID Issue(s): T7-8 osteomyelitis Antimicrobial Therapy: None Intercurrent Events/Subjective Data: No new complaints. Back pain unchanged. Physical Exam: Last value Range last 24 hrs Temperature Temp: 36 ??C (96.8 ??F) Temp: [36 ??C (96.8 ??F)-36.9 ??C (98.4 ??F)] General Looks well, alert and oriented HEENT No jaundice Heart Regular, soft systolic murmur Lungs Clear Abdomen Soft, not tender Extremities No joint swelling, no edema Skin No rash Neuro Grossly intact Laboratory: Lab Results Component Value Date WBC 5.3 04/20/2017 HGB 11.6 (L) 04/20/2017 HCT 34.5 (L) 04/20/2017 PLATELET 236 04/20/2017 Lab Results Component Value Date CREATININE 0.74 04/22/2017 Sed Rate (mm/hr) Date Value 04/17/2017 55 (H) CRP (mg/L) Date Value 04/17/2017 64.8 (H) Bone soft tissue, T7 vertebral body, CT-guided core biopsy: Minute fragment of lamellar bone with intertrabecular fibrosis and lymphoplasmacytic inflammation and focus of bone marrow. The clinical notes were reviewed. The sample is very small and the findings are not categorical however I believe there are suspicious for an infectious process/osteomyelitis. Special stains for microorganisms (AFB, Francheska and GMS) are negative. Microbiology: Blood Cultures: 04/14 at OSH negative ?? Spinal biopsy: 04/15 at OSH Gram stain without organisms, culture without growth at 5 days. Fungal and AFB in process. 04/19 Gram stain with WBC but without organisms, culture with rare coagulase- negative staphylococcus , susceptible to FQ, rifampin, vanco, dapto and tetracycline HIV and HCV Ab negative Radiology/Studies/Procedures: MRI T-spine reviewed with neuroradiology: enhancing T7 and T8 vertebral bodies with associated epidural enhancement without abscess ?? Assessment: Carmen Beyer is a 51 y.o. female with mid-thoracic back pain for the past weeks, with an MRI very suggestive of discitis/osteomyelitis at T7-8. ?? She had a CT guided biopsy at [facility] on 04/15, off antibiotics, with negative cultures. A repeat CT guided biopsy on 04/19, after one day of empiric vancomycin and cefepime, again showed a negative gram stain, but cultures are growing rare coagulase-negative staphylococcus, FQ and rifampin susceptible. Pathology is consistent with infection, although microbiologic stains are negative. From a clinical perspective, combination therapy with levofloxacin/rifampin is probably not inferiorto intravenous vancomycin. The obvious benefits of oral therapy are the ease of use, lack of infection risk from a PICC line and lower cost. The risk of oral therapy is non-adherence, which in this case could lead to worsening spine infection with spinal cord involvement leading to paralysis. Both options have potential drug toxicities. I discussed both oral and intravenous options and their implications and possible side effects with Ms. Beyer, and she clearly prefers oral treatment. She is confident that she will be able to take her pills as prescribed. ?? Recommendations: - stop vancomycin and remove PICC - start levofloxacin 750 mg PO daily - start rifampin 300 mg PO bid or 600 mg PO daily - daily dosing tends to cause more GI upset - treat for at least 6 weeks from 04/22 to 06/03 - fluoroquinolones must be administered 1h before or 2h after any divalent cations such as aluminum-magnesium containing antacids, magnesium, iron, or calcium (includes vitamins, dairy products, etc). - rifampin will color all body fluid orange - please get a baseline EKG to assess her QTc - please arrange for weekly CMP and CRP, to be faxed to the ID clinic at [phone] - follow up in ID clinic in 4 weeks ?? This patient was seen and discussed with ID attending Dr. Louie. Recommendations discussed with primary treating team. ?? ID consult service will sign off. Do not hesitate to page us at [phone] with any further questions or concerns. ? Nicanor Loyola MD Infectious Disease Fellow Pager [phone] ID Attending I interviewed and examined the patient with Dr. Loyola. I have reviewed Dr. Loyola's note fromtoday and I agree with the details as written. My physical examination confirms his findings. Of note today: Ms. Beyer remains afebrile. Culture results as above. Dr. Loyola's assessment and plan were formulated after discussion with me at the time of the visit and I agree with them as documented. We have considered various therapeutic options, including twice-daily vancomycin, once-daily daptomycin, oral linezolid, and oral quinolone/rifampin. Our decisionsare influenced by Ms. Beyer's living situation, her history of drug use, her insurance status, her ability to comply with an oral regimen, and her ability to travel daily to an infusion suite. Our synthesis of all these factors leads us to recommend a regimen of oral levofloxacin, 750 mg once daily, and oral rifampin, preferably 300 mg twice daily. This regimen should be every bit as effective as any parenteral regimen, without the costs, risks, and inconvenience of a PICC line and parenteral antibiotic administration, but success will depend on her adherence with the regimen. As discussed previously, Ms. Jiménezs pain is not likely to respond quickly, even to appropriate therapy, so we will have little information by which to gauge the adequacy of this regimen -- mainly her inflammatory markers. We will arrange for f/u in ID Clinic if so desired. Elijah Shine MD - 04/23/2017 7:57 AM EDT Orthopaedic Surgery Consult Note Attending: Imani Issue: T7/8 diskitis/osteomyelitis Subjective: No acute events overnight. Back pain stable. No radiation of pain down the legs. Able to walk without the need of assistive devices. Complains of back pain that is respirophasic. No numbness or paresthesias. Objective: Temp: [36 ??C (96.8 ??F)-36.9 ??C (98.4 ??F)] Heart Rate: [57-80] Resp: [18] BP: (154-198)/(75-98) SpO2: [98 %] Heart Rate from SPO2: [54 bpm-59 bpm] Gen: NAD, awake, alert, appr Motor: Segment Muscle Action R L C5 Deltoid Shoulder Abd 5 5 C5 Biceps Elbow flexion 5 5 C6 ECRL, ECRB Wrist extension 5 5 C7 Triceps Elbow extension 5 5 C8 Hand Grasp 5 5 T1 Hand intrinsics Finger abd/adduction 5 5 L2 Iliopsoas Hip flexion 5 5 L3 Quadriceps Knee extension 5 5 L4,5 Hamstring Knee Flexion 5 5 L4 Tibialis anterior Dorsiflexion 5 5 L5 Extensor hallucis Great toe extension 5 5 S1 Gastrocnemius, FHL Plantar flexion 5 5 Sensory: Sensation (light touch) (0=absent, 1-impaired, 2=normal: Segment location Right Left C4 top of AC joint 2 2 C5 lat side antecub fossa 2 2 C6 dorsal thumb 2 2 C7 dorsal middle finger 2 2 C8 dorsal small finger 2 2 T1 med side antecub fossa 2 2 T2 apex axilla 2 2 T3 3rd IS (intercostal space) 2 2 T4 nipple line 2 2 T5 5th IS 2 2 T6 6th IS 2 2 T7 7th IS 2 2 T8 8th IS 2 2 T9 9th IS 2 2 T10 10th iS 2 2 T11 11th iS 2 2 T12 mid inguinal ligament 2 2 L1 upper inner thigh 2 2 L2 mid-ant thigh 2 2 L3 med femoral condyle 2 2 L4 medial mal 2 2 L5 dorsum foot, 3rd MT 2 2 S1 lat heal 2 2 S2 Popliteal fossa 2 2 Imaging: MRI and CT of T spine with large diskitis/osteomyelitis complex at T7-8, with some erosion of R pedicle of T8 Mri Lumbar Spine Wwo Contrast Result Date: 04/18/2017 EXAMINATION: MRI LUMBAR SPINE WWO CONTRAST CLINICAL HISTORY: T7-8 osteo/disc, ? other infection No evidence of discitis osteomyelitis complex in the lumbar spine. Degenerative changes associated with scoliosis with with asymmetric appearance greater on the concave sides the curve. Bilateral pars defects L5. Xr Thoracic Spine 2 Views Limited comparison to CT scan turning lathe tender suggests progressive destructive changes due to discitis at T7-8with increased focal kyphosis at this level. Micro: Lab Results Component Value Date LABANAE No anaerobic organisms isolated to date 04/19/2017 GRAMSTAIN (A) 04/19/2017 Moderate White Blood Cells seen No microorganisms seen. Recent Labs 04/20/17 1732 URINECULTURE 1,000-9,000 cfu/ml Gram Negative Rods* No results for input(s): BLOODCX in the last 720 hours. Bone Culture [[id number]] (Abnormal) Collected: 04/19/17 1600 ? Lab Status: Preliminary result Specimen: Bone from Vertebra Updated: 04/22/17 1126 ? Bone Culture -- (A) ? Rare Coagulase negative Staphylococcus species Susceptibility testing in progress ? Gram Stain -- (A) ? Moderate White Blood Cells seen No microorganisms seen. Labs: Last 3 wbc, hgb, hct plt Recent Labs 04/20/17 0547 04/19/17 0638 04/18/17 0552 WBC 5.3 4.9 4.6 HGB 11.6* 11.8 12.3 HCT 34.5* 35.0* 34.8* PLATELET 236 223 237 Last 3 Lytes Recent Labs 04/22/17 2149 04/20/17 0547 04/19/17 0638 NA 141 143 143 K 4.1 3.5 3.6 CL 103 104 104 CO2 27 25 25 BUN 17 14 16 CREATININE 0.74 0.47* 0.52* Last CRP, SEDRATE Recent Labs 04/17/17 1849 CRP 64.8* SEDRATE 55* Assessment/Plan: 51 y.o. female with chronic appearing T7-8 osteo/diskitis complex, with a chronic history of back pain with worsening over the past [address] [facility] [address] [facility] [place] [place] [facility] and this bone culture is no growing coag-negative staph spp. Final sensitivities still p ending. Continue medical management. No indication for surgical intervention at this time. - Activity- no bending/twisting/lifting >5lbs, off-shelf TLSO when OOB ambulating (ok for transfer to chair/bathroom without brace) - DVT prophylaxis- per primary - Antibiotics: Per primary - Follow-up- 1 month in spine center with XR thoracic spine Future Appointments Date Time Provider Department Center 05/13/2017 12:00 PM [facility] DX ROOM 3 Xray [facility] 05/13/2017 1:00 PM Sam Mondragon PA Leb Spine [facility] Elijah Shine MD Orthopaedic Surgery Cordelia Alexandra - 04/22/2017 2:25 PM EDT Cordelia AlexandraRN,BSN pgr [phone] Plan at this time for patient to discharge with IV abx. After discussion with patient regarding vendors and VNA's patient has decided to use: Vendor: [employer] VNA: [email or web address] PHONE: [phone] FAX: [phone] Case management will continue to follow as needed. Juan Miguel Bermudez MD - 04/22/2017 12:47 PM EDT Hospital Medicine Attending Daily Progress Note Admit Date: 04/17/2017 ( Hospital Day 5 days ) Interval History: ?? Cultures remain negative ?? Additional cultures and stains added for AFB and fungal, pending ?? Awaiting final decision from ortho re: open biopsy Changes / Significant Physical Exam: Pain improved from yesterday, better on current regimen Assessment: 51 yo female distant h/o opiate abuse but NOT IVDU, OA, chronic back pain, kidney stones, admitted on 04/17/17 in transfer from [facility] for management of acute on chronic mid-back pain in the setting of MRI suggestive of destructive changes at T7-T8 (with enhancement consistent with discitis osteomyelitis, but no definite epidural abscess present at this time and no focal cord signal abnormality). S/p CT-guided T7-T8 disc aspiration on 04/15/19 at OSH with negative cultures as were surveillance blood cultures obtained on 04/14/17. Evaluated by Ortho - no surgical issues.LS Spine MRI demonstrates no other sites of infection. Underwent a CT guided aspiration 04/19, sampleis + WBC but negative for culture so far. Plan: # Osteomyelitis / Diskitis ?? All cultures from [facility] are negative ?? DH Sample is negative on gram stain, NGTD, + WBC ?? Discussed with ID, will start CTX if no open biopsy per Ortho ?? PICC line today ?? Start OPAT / Home abx process. Problem List: Active Hospital Problems Diagnosis ??? 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 Back pain, acute on chronic Resolved Hospital Problems Diagnosis Date Resolved No resolved problems to display. H There are no active non-hospital problems to display for this patient. Inpatient Medications: Scheduled ??? pregabalin 50 mg Oral TID ??? acetaminophen 650 mg Oral 4 Times Daily ??? ibuprofen 600 mg Oral 4 Times Daily ??? pantoprazole 40 mg Oral Daily ??? sodium chloride 0.9 % 5 mL Intravenous BID ??? enoxaparin 40 mg Subcutaneous Nightly ??? senna-docusate 2 tablet Oral BID ??? methyl salicylate-menthol Topical (Top) TID Continuous infusions: PRN: HYDROmorphone, sodium chloride 0.9 %, lidocaine, acetaminophen, ondansetron OR ondansetron,prochlorperazine OR prochlorperazine, bisacodyl Physical Exam Vitals Range last 24 hrs Temperature Temp: [36 ??C (96.8 ??F)-37.3 ??C (99.1 ??F)] Heart Rate Heart Rate: [57-68] Blood Pressure BP: (126-154)/(75-98) Respiratory Rate Resp: [18] SpO2 SpO2: [96 %-98 %] Intake/Output Summary (Last 24 hours) at 04/22/17 1253 Last data filed at 04/22/17 0600 Gross per 24 hour Intake 360 ml Output 650 ml Net -290 ml Patient Vitals for the past 168 hrs: Weight 04/17/17 1945 (!) 108.9 kg (240 lb) Weight: Last Weight: (!) 108.9 kg (240 lb) Admit Weight: 108.86 kg Body mass index is 39.94 kg/(m^2). Comfortable, non toxic appearing HEENT: No jaundice Neck: No JVD Chest: Clear CVS: Normal S1/2. No murmurs Abd: Soft, NT. No guarding or rebound Extr: No edema Studies reviewed in eDH. Remarkable for the following: LABS: Last 3 wbc, hgb, hct plt Recent Labs 04/20/17 0547 04/19/17 0638 04/18/17 0552 WBC 5.3 4.9 4.6 HGB 11.6* 11.8 12.3 HCT 34.5* 35.0* 34.8* PLATELET 236 223 237 Last 3 Lytes Recent Labs 04/20/17 0547 04/19/17 0638 04/18/17 0552 NA 143 143 141 K 3.5 3.6 3.7 CL 104 104 102 CO2 25 25 28 BUN 14 16 15 CREATININE 0.47* 0.52* 0.65* Last 3 LFTs No results for input(s): AST, ALT, ALKPHOS, BILITOT, BILIDIR in the last 7068 hours. Last 3 Coags No results for input(s): PT, INR, PTT in the last 168 hours. Last CRP, SEDRATE Recent Labs 04/17/17 1849 CRP 64.8* SEDRATE 55* FSBG Trend No results for input(s): POCGLU in the last 72 hours. MICRO: Recent Labs 04/20/17 1732 URINECULTURE 1,000-9,000 cfu/ml Gram Negative Rods* Recent Labs 04/19/17 1600 GRAMSTAIN Moderate White Blood Cells seen No microorganisms seen. * No results for input(s): BLOODCX in the last 720 hours. ECG: No results for input(s): DIAGLINE, QTCCALC in the last 720 hours. VASCULAR: No results for input(s): VBTEXTRPT in the last 720 hours. IMAGING: Prior imaging c/w osteo T7/8 MR LS Spine: No evidence of discitis osteomyelitis complex in the lumbar spine. Degenerative changes associated with scoliosis with with asymmetric appearance greater on the concave sides the curve. Bilateral pars defects L5. Inpatient Metrics: Can the central IV access be removed??? Place PICC line for snf Abx Can the urinary catheter be removed??? NA Labs Daily Discharge planning: Home likely vs Swing IV access PIV DVT Prophylaxis Enox 40 Code status Full Team Pager(MD Coverage 21/06) [phone] PCP Augustus Martin MD [phone] Attestation IPI Certification I certify that I am a [facility] credentialed attending provider with admitting privileges and that the patient meets or has met medical necessity to require an inpatient IPI level of care meeting a minimum of two midnights or is on the [facility] inpatient only procedure list (status C) due to: Osteomyelitits JUAN MIGUEL BERMUDEZ MD 04/22/2017 Mark Louie MD - 04/22/2017 8:54 AM EDT INFECTIOUS DISEASE FOLLOW-UP NOTE Active ID Issue(s): T7-8 osteomyelitis Antimicrobial Therapy: None Intercurrent Events/Subjective Data: No new complaints. Back pain unchanged. Physical Exam: Last value Range last 24 hrs Temperature Temp: 37 ??C (98.6 ??F) Temp: [36.8 ??C (98.2 ??F)-37.3 ??C (99.1 ??F)] General Looks well, alert and oriented HEENT No jaundice Heart Regular, soft systolic murmur Lungs Clear Abdomen Soft, not tender Extremities No joint swelling, no edema Skin No rash Neuro Grossly intact Laboratory: Lab Results Component Value Date WBC 5.3 04/20/2017 HGB 11.6 (L) 04/20/2017 HCT 34.5 (L) 04/20/2017 PLATELET 236 04/20/2017 Lab Results Component Value Date CREATININE 0.47 (L) 04/20/2017 Sed Rate (mm/hr) Date Value 04/17/2017 55 (H) CRP (mg/L) Date Value 04/17/2017 64.8 (H) Bone Pathology pending Microbiology: Blood Cultures: 04/14 at OSH negative ?? Spinal biopsy: 04/15 at OSH Gram stain without organisms, culture without growth at 5 days. Fungal and AFB in process. 04/19 Gram stain with WBC but without organisms, culture with rare coagulase- negative staphylococcus ?? HIV and HCV Ab negative Radiology/Studies/Procedures: MRI T-spine reviewed with neuroradiology: enhancing T7 and T8 vertebral bodies with associated epidural enhancement without abscess ?? Assessment: Carmen Beyer is a 51 y.o. female with mid-thoracic back pain for the past weeks, with an MRI very suggestive of discitis/osteomyelitis at T7-8. ?? She had a CT guided biopsy at [facility] on 04/15, off antibiotics, with negative cultures. A repeat CT guided biopsy on 04/19, after one day of empiric vancomycin and cefepime, again showed a negative gram stain, but cultures are growing rare coagulase-negative staphylococcus. Pathology is in process. While the coagulase-negative staphylococcus might be a contaminant, it is hard to disregard it in this setting. It is a plausible organism for osteomyelitis, and we therefore recommend treating it withvancomycin, while awaiting susceptibilities. Final antibiotic recommendations might change. ?? Recommendations: - vancomycin IV per pharmacy protocol, goal trough 15-20 - single lumen PICC ?? This patient was seen and discussed with ID attending Dr. Louie. Recommendations discussed with primary treating team. ?? ID consult service will continue to follow patient. Do not hesitate to page us at [phone] with any further questions or concerns. ? Nicanor Loyola MD Infectious Disease Fellow Pager [phone] ID Attending I interviewed and examined the patient with Dr. Loyola. I have reviewed Dr. Loyola's note fromtoday and I agree with the details as written. My physical examination confirms his findings. Of note today: Ms. Beyer complains of mid-thoracic pain -- somewhat worse than it has been. Afebrile. Our disc aspirate is now growing rare CoNS. No other new data. Dr. Loyola's assessment and plan were formulated after discussion with me at the time of the visit and I agree with them as documented. CoNS can cause vertebral osteomyelitis, but almost always in patients who have had back surgery, have had indwelling lines, or have engaged in injecting drug use (which the patient denies). It is also a common contaminant. Therefore, we are far less than certain that CoNS is a true pathogen in this case. Nevertheless, we recommend treating the patient as though this is the pathogen -- with vancomycin for now, pending culture results. We will be dependent on inflammatory markers as measures of the appropriateness of this strategy. We will advise further when culture results are final. I spent a total of 25 minutes of floor time with this patient, 15 minutes of which were spent in coordination of care with Medicine. Mark Louie MD - 04/21/2017 8:06 PM EDT Infectious Diseases Progress Note Ms. Beyer complains of left lateral chest pain, worse upon inspiration, and mid-back pain. Temp: [35.8 ??C (96.4 ??F)-37.3 ??C (99.1 ??F)] Heart Rate: [54-68] Resp: [18-20] BP: (126-151)/(75-97) SpO2: [96 %-100 %] Heart Rate from SPO2: -- Chest clear Soft systolic murmur No spine tenderness Cultures obtained at outside hospital and at [facility] [place] [place] (the latter on 04/19) remain negative. (Our culturewas obtained after antibiotics had been given.) UA with 11 WBC, low number of GNRs. Chest x-ray with small effusions, otherwise unremarkable HCV and HIV-negative It appears that we will not have a positive culture from either aspiration, although some potential pathogens are slow-growing. With nothing in the way of epidemiologic clues (if we take Ms. Beyer at her word that she has not engaged in IDU), the most likely pathogens would be viridans streptococci, enterococci, staphylococci, other oral deana, and GNRs. A decision will have to be made as to whether to make another attempt to obtain a microbiologic diagnosis -- which would enhance our ability to treat Ms. Beyer safely and effectively -- or treat empirically for bacterial osteomyelitis. We do not favor a repeat CT-guided biopsy/aspiration, but the sensitivity of an open biopsy is very much higher. We suggest asking Orthopedics to consider this approach. Should we decide to treat empirically, we have almost nothing to follow (to gauge the efficacy of therapy), as Ms. Beyer is afebrile and has a normal WBC, and neither her level of pain nor repeat imaging are likely to be useful. The only parameter we will be able to monitor over the short term will be CRP. Cefttriaxone would be a reasonable drug, although it would not cover MRSA (which is an unlikely pathogen, with negative cultures)and most CoNS. We are also uncertain as to whether Ms. Beyer would be an acceptable candidate forOPAT, but we will investigate this further. I spent a total of 40 minutes of floor time with the patient, 25 minutes of which were spent in coordination of care with Medicine. Juan Miguel Bermudez MD - 04/21/2017 5:50 PM EDT [facility] Medicine Attending Daily Progress Note Admit Date: 04/17/2017 ( Hospital Day 4 days ) Interval History: ?? Cultures remain negative ?? Appreciate ID Input ?? Added additional stains to her biopsy results - fungal and AFB ?? Discussed with ortho, ? Open biopsy, they will evaluate ?? Will need PICC line Changes / Significant Physical Exam: Pain slightly worse from yesterday Assessment: 51 yo female distant h/o opiate abuse but NOT IVDU, OA, chronic back pain, kidney stones, admitted on 04/17/17 in transfer from [facility] for management of acute on chronic mid-back pain in the setting of MRI suggestive of destructive changes at T7-T8 (with enhancement consistent with discitis osteomyelitis, but no definite epidural abscess present at this time and no focal cord signal abnormality). S/p CT-guided T7-T8 disc aspiration on 04/15/19 at OSH with negative cultures as were surveillance blood cultures obtained on 04/14/17. Evaluated by Ortho - no surgical issues.LS Spine MRI demonstrates no other sites of infection. Underwent a CT guided aspiration 04/19, sampleis + WBC but negative for culture so far. Plan: # Osteomyelitis / Diskitis ?? All cultures from [facility] are negative ?? Sample is negative on gram stain, NGTD, + WBC ?? Likely will start empiric CTX, will ask for ortho opinion regarding open biopsy. Problem List: Active Hospital Problems Diagnosis ??? 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 Back pain, acute on chronic Resolved Hospital Problems Diagnosis Date Resolved No resolved problems to display. PMH There are no active non-hospital problems to display for this patient. Inpatient Medications: Scheduled ??? pregabalin 50 mg Oral TID ??? acetaminophen 650 mg Oral 4 Times Daily ??? ibuprofen 600 mg Oral 4 Times Daily ??? pantoprazole 40 mg Oral Daily ??? sodium chloride 0.9 % 5 mL Intravenous BID ??? enoxaparin 40 mg Subcutaneous Nightly ??? senna-docusate 2 tablet Oral BID ??? methyl salicylate-menthol Topical (Top) TID Continuous infusions: PRN: HYDROmorphone, sodium chloride 0.9 %, lidocaine, acetaminophen, ondansetron OR ondansetron,prochlorperazine OR prochlorperazine, bisacodyl Physical Exam Vitals Range last 24 hrs Temperature Temp: [35.8 ??C (96.4 ??F)-37.3 ??C (99.1 ??F)] Heart Rate Heart Rate: [54-68] Blood Pressure BP: (126-151)/(75-97) Respiratory Rate Resp: [18-20] SpO2 SpO2: [96 %-100 %] Intake/Output Summary (Last 24 hours) at 04/21/17 1750 Last data filed at 04/21/17 1200 Gross per 24 hour Intake 1440 ml Output 0 ml Net 1440 ml Patient Vitals for the past 168 hrs: Weight 04/17/171944 (!) 108.9 kg (240 lb) Weight: Last Weight: (!) 108.9 kg (240 lb) Admit Weight: 108.86 kg Body mass index is 39.94 kg/(m^2). Comfortable, non toxic appearing HEENT: No jaundice Neck: No JVD Chest: Clear CVS: Normal S1/2. No murmurs Abd: Soft, NT. No guarding or rebound Extr: No edema Studies reviewed in eDH. Remarkable for the following: LABS: Last 3 wbc, hgb, hct plt Recent Labs 04/20/17 0547 04/19/17 0638 04/18/17 0552 WBC 5.3 4.9 4.6 HGB 11.6* 11.8 12.3 HCT 34.5* 35.0* 34.8* PLATELET 236 223 237 Last 3 Lytes Recent Labs 04/20/17 0547 04/19/17 0638 04/18/17 0552 NA 143 143 141 K 3.5 3.6 3.7 CL 104 104 102 CO2 25 25 28 BUN 14 16 15 CREATININE 0.47* 0.52* 0.65* Last 3 LFTs No results for input(s): AST, ALT, ALKPHOS, BILITOT, BILIDIR in the last 7068 hours. Last 3 Coags No results for input(s): PT, INR, PTT in the last 168 hours. Last CRP, SEDRATE Recent Labs 04/17/17 1849 CRP 64.8* SEDRATE 55* FSBG Trend No results for input(s): POCGLU in the last 72 hours. MICRO: Recent Labs 04/20/17 1732 URINECULTURE 1,000-9,000 cfu/ml Gram Negative Rods* Recent Labs 04/19/17 1600 GRAMSTAIN Moderate White Blood Cells seen No microorganisms seen. No results for input(s): BLOODCX in the last 720 hours. ECG: No results for input(s): DIAGLINE, QTCCALC in the last 720 hours. VASCULAR: No results for input(s): VBTEXTRPT in the last 720 hours. IMAGING: Prior imaging c/w osteo T7/8 MR LS Spine: No evidence of discitis osteomyelitis complex in the lumbar spine. Degenerative changes associated with scoliosis with with asymmetric appearance greater on the concave sides the curve. Bilateral pars defects L5. Inpatient Metrics: Can the central IV access be removed??? NA Can the urinary catheter be removed??? NA Labs Daily Discharge planning: Home likely vs Swing IV access PIV DVT Prophylaxis Enox 40 Code status Full Team Pager(MD Coverage 21/06) [phone] PCP Augustus Martin MD [phone] Attestation IPI Certification I certify that I am a D-H credentialed attending provider with admitting privileges and that the patient meets or has met medical necessity to require an inpatient IPI level of care meeting a minimum of two midnights or is on the CMS inpatient only procedure list (status C) due to: Osteomyelitits JUAN MIGUEL BERMUDEZ MD 04/21/2017 Mariana Guadarrama E - 04/21/2017 1:01 PM EDT Physical therapy. Attempted to see pt for physical therapy to practice stairs, but pt stated that she was in too much pain for physical therapy. Told pt that we would attempt to see her tomorrow to practice stairs depending on how her pain is managed. Pager # [phone] Cong Apodaca PT Juan Miguel Bermudez MD - 04/20/2017 4:16 PM EDT Hospital Medicine Attending Daily Progress Note Admit Date: 04/17/2017 ( Hospital Day 3 days ) Interval History: ?? Sample obtained here is + WBC's but no organisms on GS, culture NGTD ?? Will obtain ID consult today Changes / Significant Physical Exam: Able to get up and ambulate Some paraspinal tenderness Assessment: 51 yo female distant h/o opiate abuse but NOT IVDU, OA, chronic back pain, kidney stones, admitted on 04/17/17 in transfer from [facility] for management of acute on chronic mid-back pain in the setting of MRI suggestive of destructive changes at T7-T8 (with enhancement consistent with discitis osteomyelitis, but no definite epidural abscess present at this time and no focal cord signal abnormality). S/p CT-guided T7-T8 disc aspiration on 04/15/19 at OSH with negative cultures as were surveillance blood cultures obtained on 04/14/17. Evaluated by Ortho - no surgical issues.LS Spine MRI demonstrates no other sites of infection. Underwent a CT guided aspiration 04/19, sampleis + WBC but negative for culture so far. Plan: # Osteomyelitis / Diskitis ?? All cultures from [facility] are negative ?? DH Sample is negative on gram stain, NGTD, + WBC ?? No Abx. ?? Will get ID input today Problem List: Active Hospital Problems Diagnosis ??? 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 Back pain, acute on chronic Resolved Hospital Problems Diagnosis Date Resolved No resolved problems to display. H There are no active non-hospital problems to display for this patient. Inpatient Medications: Scheduled ??? acetaminophen 650 mg Oral 4 Times Daily ??? ibuprofen 600 mg Oral 4 Times Daily ??? pantoprazole 40 mg Oral Daily ??? sodium chloride 0.9 % 5 mL Intravenous BID ??? enoxaparin 40 mg Subcutaneous Nightly ??? senna-docusate 2 tablet Oral BID ??? methyl salicylate-menthol Topical (Top) TID Continuous infusions: PRN: oxyCODONE, sodium chloride 0.9 %, lidocaine, acetaminophen, ondansetron OR ondansetron, prochlorperazine OR prochlorperazine, bisacodyl, ibuprofen Physical Exam Vitals Range last 24 hrs Temperature Temp: [36.5 ??C (97.7 ??F)-37.5 ??C (99.5 ??F)] Heart Rate Heart Rate: [51-71] Blood Pressure BP: (112-148)/(55-86) Respiratory Rate Resp: [16-18] SpO2 SpO2: [94 %-98 %] Intake/Output Summary (Last 24 hours) at 04/20/17 1616 Last data filed at 04/20/17 1300 Gross per 24 hour Intake 750 ml Output 0 ml Net 750 ml Patient Vitals for the past 168 hrs: Weight 04/17/171944 (!) 108.9 kg (240 lb) Weight: Last Weight: (!) 108.9 kg (240 lb) Admit Weight: 108.86 kg Body mass index is 39.94 kg/(m^2). Comfortable, non toxic appearing HEENT: No jaundice Neck: No JVD Chest: Clear CVS: Normal S1/2. No murmurs Abd: Soft, NT. No guarding or rebound Extr: No edema Studies reviewed in eDH. Remarkable for the following: LABS: Last 3 wbc, hgb, hct plt Recent Labs 04/20/17 0547 04/19/17 0638 04/18/17 0552 WBC 5.3 4.9 4.6 HGB 11.6* 11.8 12.3 HCT 34.5* 35.0* 34.8* PLATELET 236 223 237 Last 3 Lytes Recent Labs 04/20/17 0547 04/19/17 0638 04/18/17 0552 NA 143 143 141 K 3.5 3.6 3.7 CL 104 104 102 CO2 25 25 28 BUN 14 16 15 CREATININE 0.47* 0.52* 0.65* Last 3 LFTs No results for input(s): AST, ALT, ALKPHOS, BILITOT, BILIDIR in the last 7068 hours. Last 3 Coags No results for input(s): PT, INR, PTT in the last 168 hours. Last CRP, SEDRATE Recent Labs 04/17/17 1849 CRP 64.8* SEDRATE 55* FSBG Trend No results for input(s): POCGLU in the last 72 hours. MICRO: No results for input(s): URINECULTURE in the last 720 hours. Recent Labs 04/19/17 1600 GRAMSTAIN Moderate White Blood Cells seen No microorganisms seen. No results for input(s): BLOODCX in the last 720 hours. ECG: No results for input(s): DIAGLINE, QTCCALC in the last 720 hours. VASCULAR: No results for input(s): VBTEXTRPT in the last 720 hours. IMAGING: Prior imaging c/w osteo T7/8 MR LS Spine: No evidence of discitis osteomyelitis complex in the lumbar spine. Degenerative changes associated with scoliosis with with asymmetric appearance greater on the concave sides the curve. Bilateral pars defects L5. Inpatient Metrics: Can the central IV access be removed??? NA Can the urinary catheter be removed??? NA Labs Daily Discharge planning: Home likely vs Swing IV access PIV DVT Prophylaxis Enox 40 Code status Full Team Pager(MD Coverage 24/7) [phone] PCP Augustus Martin MD [phone] Attestation IPI Certification I certify that I am a D-H credentialed attending provider with admitting privileges and that the patient meets or has met medical necessity to require an inpatient IPI level of care meeting a minimum of two midnights or is on the [facility] inpatient only procedure list (status C) due to: Osteomyelitits JUAN MIGUEL BERMUDEZ MD 04/20/2017 Cong Apodaca, PT - 04/19/2017 4:23 PM EDT Physical Therapy Referral received, e-DH chart reviewed, patient off unit for biopsy procedure. Transferred from [facility] with back pain and further work-up of T7-8 spine changes, ?Discitis. Pt has a TLSO brace @ bedside and clarified with Ortho Service that patient is to wear this brace when OOB walking. Plan to f/u tomorrow for PT Evaluation. Pager #[phone] Sabine Shaw, NICOLAS - 04/19/2017 2:54 PM EDT To procedure room CT 1 via stretcher. Onto table prone (position) All monitors, O2, safety strap in place. Med's per protocol. Delvis Dean - 04/19/2017 2:11 PM EDT PRE-SEDATION ASSESSMENT / FOCUSED H&P Procedure: CT guided thoracic spine biopsy Risks (including hemorrhage, infection, epidural hematoma, respiratory depression), and benefits discussed and patient consented to the procedure. I have reviewed with the patient, their prior experience with sedation. The patient has been NPO perprotocol I have reviewed the sedation plan for this patient???s case and concur that Fentanyl and Versed are appropriate choices for sedation and will be provided per the protocoled order set for this case Physical Exam Heart: RRR Lungs: clear ASA Classification: ASA 2 - Patient with mild systemic disease with no functional limitations Mallampati Classification: II (soft palate, uvula, fauces visible) Delvis Dean MD Assembly Machine Tender Mariana Trujillo OT - 04/19/2017 1:44 PM EDT Occupational Therapy Note: OT referral received, chart reviewed in eDH, and spoke with RN. Attempted to complete OT evaluation,however pt currently off floor for T-spine biopsy. Will follow up with the pt to complete evaluationwhen pt is available and appropriate to participate. Mariana Trujillo OT Pager [phone] Juan Miguel Bermudez MD - 04/19/2017 12:49 PM EDT Hospital Medicine Attending Daily Progress Note Admit Date: 04/17/2017 ( Hospital Day 2 days ) Interval History: ?? Cultures from [facility] are final negative. ?? No fevers overnight ?? L Spine MRI - No evidence of infection Changes / Significant Physical Exam: Able to get up and ambulate Some paraspinal tenderness Assessment: 51 yo female distant h/o opiate abuse but NOT IVDU, OA, chronic back pain, kidney stones, admitted on 04/17/17 in transfer from [facility] for management of acute on chronic mid-back pain in the setting of MRI suggestive of destructive changes at T7-T8 (with enhancement consistent with discitis osteomyelitis, but no definite epidural abscess present at this time and no focal cord signal abnormality). S/p CT-guided T7-T8 disc aspiration on 04/15/19 at OSH with negative cultures as were surveillance blood cultures obtained on 04/14/17. Evaluated by Ortho - no surgical issues. Plan: # Osteomyelitis / Diskitis ?? All cultures from [facility] are negative ?? NPO today, plan for sampling under CT guidance. Discussed with IR. ?? Ambulate as tolerated, TLSO brace for comfort ?? Culture for fever ?? No Abx. ?? She will likely need a PICC line, but will await further culture results. Problem List: Active Hospital Problems Diagnosis ??? 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 Back pain, acute on chronic Resolved Hospital Problems Diagnosis Date Resolved No resolved problems to display. PMH There are no active non-hospital problems to display for this patient. Inpatient Medications: Scheduled ??? sodium chloride 0.9 % 5 mL Intravenous BID ??? enoxaparin 40 mg Subcutaneous Nightly ??? senna-docusate 2 tablet Oral BID ??? methyl salicylate-menthol Topical (Top) TID Continuous infusions: PRN: oxyCODONE, sodium chloride 0.9 %, lidocaine, acetaminophen, ondansetron OR ondansetron, prochlorperazine OR prochlorperazine, bisacodyl, ibuprofen Physical Exam Vitals Range last 24 hrs Temperature Temp: [36.2 ??C (97.2 ??F)-36.9 ??C (98.4 ??F)] Heart Rate Heart Rate: [48-69] Blood Pressure BP: (127-152)/(75-90) Respiratory Rate Resp: [16-18] SpO2 SpO2: [95 %-96 %] Intake/Output Summary (Last 24 hours) at 04/19/17 1249 Last data filed at 04/19/17 0800 Gross per 24 hour Intake 600 ml Output 200 ml Net 400 ml Patient Vitals for the past 168 hrs: Weight 04/17/171944 (!) 108.9 kg (240 lb) Weight: Last Weight: (!) 108.9 kg (240 lb) Admit Weight: 108.86 kg Body mass index is 39.94 kg/(m^2). Comfortable, non toxic appearing HEENT: No jaundice Neck: No JVD Chest: Clear CVS: Normal S1/2. No murmurs Abd: Soft, NT. No guarding or rebound Extr: No edema Studies reviewed in eDH. Remarkable for the following: LABS: Last 3 wbc, hgb, hct plt Recent Labs 04/19/17 0638 04/18/17 0552 04/17/17 1849 WBC 4.9 4.6 4.4 HGB 11.8 12.3 12.2 HCT 35.0* 34.8* 35.2* PLATELET 223 237 236 Last 3 Lytes Recent Labs 04/19/17 0638 04/18/17 0552 04/17/17 1849 NA 143 141 141 K 3.6 3.7 3.7 CL 104 102 101 CO2 25 28 28 BUN 16 15 14 CREATININE 0.52* 0.65* 0.55* Last 3 LFTs No results for input(s): AST, ALT, ALKPHOS, BILITOT, BILIDIR in the last 7068 hours. Last 3 Coags No results for input(s): PT, INR, PTT in the last 168 hours. Last CRP, SEDRATE Recent Labs 04/17/17 1849 CRP 64.8* SEDRATE 55* FSBG Trend No results for input(s): POCGLU in the last 72 hours. MICRO: No results for input(s): URINECULTURE in the last 720 hours. No results for input(s): GRAMSTAIN, BFCX, LOWERRESPCX, TISSUECX in the last 720 hours. No results for input(s): BLOODCX in the last 720 hours. ECG: No results for input(s): DIAGLINE, QTCCALC in the last 720 hours. VASCULAR: No results for input(s): VBTEXTRPT in the last 720 hours. IMAGING: Prior imaging c/w osteo T7/8 MR LS Spine: No evidence of discitis osteomyelitis complex in the lumbar spine. Degenerative changes associated with scoliosis with with asymmetric appearance greater on the concave sides the curve. Bilateral pars defects L5. Inpatient Metrics: Can the central IV access be removed??? NA Can the urinary catheter be removed??? NA Labs Daily Discharge planning: Home likely vs Swing IV access PIV DVT Prophylaxis Enox 40 Code status Full Team Pager( Coverage 21/06) [phone] PCP Augustus Martin MD [phone] Attestation IPI Certification I certify that I am a D-H credentialed attending provider with admitting privileges and that the patient meets or has met medical necessity to require an inpatient IPI level of care meeting a minimum of two midnights or is on the [facility] inpatient only procedure list (status C) due to: Osteomyelitits JUAN MIGUEL BERMUDEZ MD 04/19/2017 Sabine Shaw RN - 04/19/2017 10:38 AM EDT [facility] Name: CARMEN BEYER Date of : 1965 AGE 51 y.o. Address: [address] [place] [id number] (home) Mobile: No relevant phone numbers on file. Referring Provider: Anuel Strauss REASON FOR VISIT: Laterality Bilateral Is the patient on anticoagulant / anitplatelet therapy ? Low Molecular Weight Heparin Is this biopsy due to suspicion for disease progression No Reason for exam and clinical history: T7-8 Osteo, need culture samples Is the patient ? Unknown Anticoagulant/antiplatelet/herbal med. stopped on per MD order. No Known Allergies Pertinent PMH: Patient Active Problem List Diagnosis Code ??? Back pain, acute on chronic M54.9 ??? 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 DAVIN AND BSO 2004 Date/Procedure Med's given/comments 04/19/17 CT-guided T7-T8 Bone Bx Fentanyl 450 mcg IV, Versed 8 mg IV; pt moved throughout;, NEEDS ANESTHESIA FOR LONG, PAINFUL PROCEDURES. Laboratory Results: Lab Results Component Value Date CREATININE 0.52 (L) 04/19/2017 Lab Results Component Value Date K 3.6 04/19/2017 Lab Results Component Value Date PLATELET 223 04/19/2017 Medications: Prior to Admission medications Not on File Delvis Dean - 04/19/2017 10:04 AM EDT Images from the original note were not included. PRE-PROCEDURE VIR NOTE: Referring Physician: Juan Miguel Bermudez MD PCP: Augustus Martin MD Planned Procedure: CT guided thoracic spine biopsy Procedure Indication: T7-T8 discitis osteomyelitis Presenting Diagnosis/ Complaint: Carmen Beyer is a 51 y.o. female with acute on chronic mid back pain who was transferred from [facility] on 04/17[facility]17 for management after MRI was suggestive of T7-T8 discitis osteomyelitis. She is s/p CT-guided T7-T8 biopsy on 04/15/17 at OSH with negative cultures. Request has been made for repeat biopsy. Past Medical/Surgical History Patient Active Problem List Diagnosis Code ??? Back pain, acute on chronic M54.9 ??? 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 No pertinent past medical history. Past Surgical History: Procedure Laterality Date ??? DAVIN AND BSO 2003 Medications: Scheduled Meds: ??? sodium chloride 0.9 % 5 mL Intravenous BID ??? enoxaparin 40 mg Subcutaneous Nightly ??? senna-docusate 2 tablet Oral BID ??? methyl salicylate-menthol Topical (Top) TID Continuous Infusions: PRN Meds:.oxyCODONE, sodium chloride 0.9 %, lidocaine, acetaminophen, ondansetron OR ondansetron, prochlorperazine OR prochlorperazine, bisacodyl, ibuprofen Allergies: Review of patient's allergies indicates no known allergies. Social History and Habits: Social History Social History ??? Marital status: Single Spouse name: N/A ??? Number of children: 2 ??? Years of education: N/A Occupational History ??? Not on file. Social History Main Topics ??? Smoking status: Current Every Day Smoker Packs/day: 0.50 Years: 10.00 Types: Cigarettes ??? Smokeless tobacco: Never Used ??? Alcohol use No ??? Drug use: Yes Special: Opioids (heroin, pills) ??? Sexual activity: Not on file Other Topics Concern ??? Not on file Social History Narrative Significant Family History: Family History Problem Relation Age of Onset ??? Ovarian Cancer Mother 70 Physical Exam: Pending Labs: Lab Results Component Value Date WBC 4.9 04/19/2017 HCT 35.0 (L) 04/19/2017 PLATELET 223 04/19/2017 BUN 16 04/19/2017 CREATININE 0.52 (L) 04/19/2017 Prior relevant imaging: Assessment/Plan: 51 y.o. female with acute on chronic mid back pain who was transferred from [facility] on 04/17/17 for management after MRI was suggestive of T7-T8 discitis osteomyelitis. She is s/p CT-guided T7-T8 biopsy on 04/15/17 at OSH with negative cultures. Will plan for repeat biopsy of T7-T8. Biopsy/drain access site: T7-T8 Patient Position: prone Anesthesia required: moderate sedation Medications to discontinue (and days): [none] Labs: [obtain per CT protocol] Case discussed with Dr. Lima. Delvis eDan MD Assembly Machine Tender Dulce Montaño MD - 04/19/2017 7:56 AM EDT Orthopaedic Surgery Consult Note Attending: Imani Issue: T7/8 diskitis/osteomyelitis Subjective: Back pain stable overnight, no acute issues. Afebrile. Has ambulated to bathroom withoutissue Objective: Temp: [36.4 ??C (97.5 ??F)-36.9 ??C (98.4 ??F)] Heart Rate: [52-69] Resp: [16] BP: (121-135)/(66-91) SpO2: [95 %-100 %] Heart Rate from SPO2: -- Gen: NAD, awake, alert, appr Motor: Segment Muscle Action R L C5 Deltoid Shoulder Abd 5 5 C5 Biceps Elbow flexion 5 5 C6 ECRL, ECRB Wrist extension 5 5 C7 Triceps Elbow extension 5 5 C8 Hand Grasp 5 5 T1 Hand intrinsics Finger abd/adduction 5 5 L2 Iliopsoas Hip flexion 5 5 L3 Quadriceps Knee extension 5 5 L4,5 Hamstring Knee Flexion 5 5 L4 Tibialis anterior Dorsiflexion 5 5 L5 Extensor hallucis Great toe extension 5 5 S1 Gastrocnemius, FHL Plantar flexion 5 5 Sensory: Sensation (light touch) (0=absent, 1-impaired, 2=normal: Segment location Right Left C4 top of AC joint 2 2 C5 lat side antecub fossa 2 2 C6 dorsal thumb 2 2 C7 dorsal middle finger 2 2 C8 dorsal small finger 2 2 T1 med side antecub fossa 2 2 T2 apex axilla 2 2 T3 3rd IS (intercostal space) 2 2 T4 nipple line 2 2 T5 5th IS 2 2 T6 6th IS 2 2 T7 7th IS 2 2 T8 8th IS 2 2 T9 9th IS 2 2 T10 10th iS 2 2 T11 11th iS 2 2 T12 mid inguinal ligament 2 2 L1 upper inner thigh 2 2 L2 mid-ant thigh 2 2 L3 med femoral condyle 2 2 L4 medial mal 2 2 L5 dorsum foot, 3rd MT 2 2 S1 lat heal 2 2 S2 Popliteal fossa 2 2 Imaging: MRI and CT of T spine with large diskitis/osteomyelitis complex at T7-8, with some erosion of R pedicle of T8 Mri Lumbar Spine Wwo Contrast Result Date: 04/18/2017 EXAMINATION: MRI LUMBAR SPINE WWO CONTRAST CLINICAL HISTORY: T7-8 osteo/disc, ? other infection No evidence of discitis osteomyelitis complex in the lumbar spine. Degenerative changes associated with scoliosis with with asymmetric appearance greater on the concave sides the curve. Bilateral pars defects L5. Xr Thoracic Spine 2 Views Limited comparison to CT scan turning lathe tender suggests progressive destructive changes due to discitis at T7-8with increased focal kyphosis at this level. Assessment/Plan: 51 y.o. female with chronic appearing T7-8 osteo/diskitis complex, with a chronic history of back pain with worsening over the past 6 weeks or so. This has been biopsied at an outside hospital and she is hemodynamically stable and has been ambulating normally. This does not represent a mechanically unstable spine, no surgical indication at this time, recommend treatment with antibiotics and and off-shelf TLSO brace while ambulating out of bed. Lumbar MRI demonstrated no additional focus of infection/abnormality. - Activity- no bending/twisting/lifting >5lbs, off-shelf TLSO when OOB ambulating (ok for transfer to chair/bathroom without brace) - DVT prophylaxis- per primary - Antibiotics: Per primary - Follow-up- 1 month in spine center with XR thoracic spine Dulce Montaño M.D. Orthopaedic Surgery Pager: #[phone] Juan Miguel Bermudez MD - 04/18/2017 2:25 PM EDT Hospital Medicine Attending Daily Progress Note Admit Date: 04/17/2017 ( Hospital Day 1 day ) Interval History: ?? History clarified -- she has never been an IVDU. She has a distant history of snorting heroin, has been clean for years. ?? Cultures from [facility] are negative Changes / Significant Physical Exam: Able to get up and ambulate Some paraspinal tenderness Assessment: 51 yo female distant h/o opiate abuse but NOT IVDU, OA, chronic back pain, kidney stones, admitted on 04/17/17 in transfer from [facility] for management of acute on chronic mid-back pain in the setting of MRI suggestive of destructive changes at T7-T8 (with enhancement consistent with discitis osteomyelitis, but no definite epidural abscess present at this time and no focal cord signal abnormality). S/p CT-guided T7-T8 disc aspiration on 04/15/19 at OSH with negative cultures as were surveillance blood cultures obtained on 04/14/17. Evaluated by Ortho - no surgical issues. Plan: # Osteomyelitis / Diskitis ?? All cultures from [facility] are negative ?? Will likely require resampling, as obtaining a positive culture is critical for abx choice. ?? NPO after midnight ?? Review with IR in AM ?? Ambulate as tolerated, TLSO brace for comfort ?? Culture for fever ?? No Abx. Problem List: Active Hospital Problems Diagnosis ??? 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 Back pain, acute on chronic Resolved Hospital Problems Diagnosis Date Resolved No resolved problems to display. PMH There are no active non-hospital problems to display for this patient. Inpatient Medications: Scheduled ??? sodium chloride 0.9 % 5 mL Intravenous BID ??? enoxaparin 40 mg Subcutaneous Nightly ??? senna-docusate 2 tablet Oral BID ??? methyl salicylate-menthol Topical (Top) TID Continuous infusions: PRN: sodium chloride 0.9 %, lidocaine, acetaminophen, ondansetron OR ondansetron, prochlorperazine OR prochlorperazine, bisacodyl, oxyCODONE, ibuprofen Physical Exam Vitals Range last 24 hrs Temperature Temp: [36.4 ??C (97.5 ??F)-37 ??C (98.6 ??F)] Heart Rate Heart Rate: [52-68] Blood Pressure BP: (121-150)/(66-91) Respiratory Rate Resp: [16] SpO2 SpO2: [96 %-100 %] Intake/Output Summary (Last 24 hours) at 04/18/17 1425 Last data filed at 04/18/17 0800 Gross per 24 hour Intake 1125 ml Output 600 ml Net 525 ml Patient Vitals for the past 168 hrs: Weight 04/17/17 194 (!) 108.9 kg (240 lb) Weight: Last Weight: (!) 108.9 kg (240 lb) Admit Weight: 108.86 kg Body mass index is 39.94 kg/(m^2). Comfortable, non toxic appearing HEENT: No jaundice Neck: No JVD Chest: Clear CVS: Normal S1/2. No murmurs Abd: Soft, NT. No guarding or rebound Extr: No edema Skin: no clear portals of entry. Studies reviewed in eDH. Remarkable for the following: LABS: Last 3 wbc, hgb, hct plt Recent Labs 04/18/17 0552 04/17/17 184 WBC 4.6 4.4 HGB 12.3 12.2 HCT 34.8* 35.2* PLATELET 237 236 Last 3 Lytes Recent Labs 04/18/17 0552 04/17/17 184 NA 141 141 K 3.7 3.7 CL 102 101 CO2 28 28 BUN 15 14 CREATININE 0.65* 0.55* Last 3 LFTs No results for input(s): AST, ALT, ALKPHOS, BILITOT, BILIDIR in the last 7068 hours. Last 3 Coags No results for input(s): PT, INR, PTT in the last 168 hours. Last CRP, SEDRATE Recent Labs 04/17/17 184 CRP 64.8* SEDRATE 55* FSBG Trend No results for input(s): POCGLU in the last 72 hours. MICRO: No results for input(s): URINECULTURE in the last 720 hours. No results for input(s): GRAMSTAIN, BFCX, LOWERRESPCX, TISSUECX in the last 720 hours. No results for input(s): BLOODCX in the last 720 hours. ECG: No results for input(s): DIAGLINE, QTCCALC in the last 720 hours. VASCULAR: No results for input(s): VBTEXTRPT in the last 720 hours. IMAGING: Prior imaging c/w osteo T7/8 Inpatient Metrics: Can the central IV access be removed??? NA Can the urinary catheter be removed??? NA Labs Daily Discharge planning: Home likely IV access PIV DVT Prophylaxis Enox 40 Code status Full Team Pager(MD Coverage 21/06) [phone] PCP Augustus Martin MD [phone] Attestation IPI Certification I certify that I am a [facility] credentialed attending provider with admitting privileges and that the patient meets or has met medical necessity to require an inpatient IPI level of care meeting a minimum of two midnights or is on the [facility] inpatient only procedure list (status C) due to: Osteomyelitits JUAN MIGUEL BERMUDEZ MD 04/18/2017 Danielle Agee RN - 04/17/2017 7:03 PM EDT Carmen Beyer arrived to 503A @ 1600 from [place]. Oriented to room, call mott within reach, educated on importance of using prior to getting OOB. Neurologically intact, AVSS, lungs clear on RA, c/o back pain and given PRN Oxycodone. Belongings updated in eDH, bed locked in low position, purposeful hourly rounding, bed/chair alarm on. documented in this encounter H&P Notes Chayo Hernández MD - 04/17/2017 5:30 PM EDT Inpatient Hospital Medicine - Admission Note Problem List: Active Hospital Problems Diagnosis ??? Back pain, acute on chronic Resolved Hospital Problems Diagnosis Date Resolved No resolved problems to display. There are no active non-hospital problems to display for this patient. ID: 51 y.o. Female transferred to [facility] [place] [place] for management of T7-T8 destructive changes concerning for discitis. History of Present Illness: HPI 51 yo female h/o opiate abuse, OA, chronic back pain, kidney stones, presented to [facility] on 04/14/17 with left flank pain and initial concern for recurrent kidney stone. CT performedsuggestive of T7-T8 destructive changes concerning for discitis. The patient stated chronic back pain history, but more acute ~1 month prior to her presentation. Because of this acute pain, she purchased street heroine and snorted in the hope of easing her discomfort. Around this time, she also acquired Suboxone on the streets as additional measure to control her pain. The patient denied recent IV drug use. No associated fevers/chills, night sweats, numbing/tingling sensation in extremities, body rash, unexplained weight loss, but did note shortness of breath arrested by acute exacerbated back pain. While hospitalized at [facility], the patient underwent CT-guided T7-T8 disc aspiration on 04/15/19 with prelim negative cultures as were surveillance blood cultures obtained on 04/14/17. Of note, the patient was started on empiric IV Vanco and Cefepime because of her initial vague report of fevers/chills. ESR=34 and CRP=54 Urine drug screen positive for opiate and again the patient recently had heroine and suboxone. NeuroSurgery (Dr. Anuel Strauss) contacted Spine (Dr. Adelso Diallo) for transfer request on 04/16 to address proposed intervention for her spine abnormality and hope for mechanical stabilization. At time of her arrival to on 04/17/17, the patient remained afebrile withhemodynamic stability and no other new neuro SxS. Her only complaint was back pain (8 out of 10, localized mid-back at T7-T8) and she requested her next dose of oxycodone. Of note, the patient is s/p DAVIN/BSO in 2003 with reported colo then by her as being unremarkable, no recent bowel changes (tarry black stools, etc), and no prior mammography. Review of Systems: Review of Systems Constitutional: Negative. HENT: Negative. Eyes: Negative. Respiratory: Negative. Cardiovascular: Negative. Endocrine: Negative. Genitourinary: Negative. Musculoskeletal: Positive for back pain. Skin: Negative. Allergic/Immunologic: Negative. Neurological: Negative. Psychiatric/Behavioral: Negative. Past Medical and Surgical History: History reviewed. No pertinent past medical history. Past Surgical History: Procedure Laterality Date ??? DAVIN AND BSO 2003 Prior To Admission Medications: No prescriptions prior to admission. Allergies: No Known Allergies Family History: Family History Problem Relation Age of Onset ??? Ovarian Cancer Mother 70 Social History and Habits: Social History Social History ??? Marital status: Single Spouse name: N/A ??? Number of children: 2 ??? Years of education: N/A Occupational History ??? Not on file. Social History Main Topics ??? Smoking status: Current Every Day Smoker Packs/day: 0.50 Years: 10.00 Types: Cigarettes ??? Smokeless tobacco: Not on file ??? Alcohol use No ??? Drug use: Yes Special: Opioids (heroin, pills) ??? Sexual activity: Not on file Other Topics Concern ??? Not on file Social History Narrative ??? No narrative on file Immunizations: There is no immunization history on file for this patient. Physical Exam: Last Set of Vitals and range of vitals over past 24 hours: Last value Range last 24 hrs Temperature Temp: 36.4 ??C (97.5 ??F) Temp: [36.4 ??C (97.5 ??F)] Heart Rate Heart Rate: 54 Heart Rate: [54] Blood Pressure BP: 150/80 BP: (150)/(80) Respiratory Rate Resp: 16 Resp: [16] SpO2 SpO2: 100 % SpO2: [100 %] There is no height or weight on file to calculate BMI. Physical Exam Gen - NAD Lungs - CTAB Chest/Back - (+)paraspinal musculoskeletal discomfort, improved with localized massage at T7-T8 region; no erythema, warmth, swelling at biopsied site Heart - RRR Abdomen - +BS, soft, ND/NT Extremities - (-)e/c/c Skin - (-)rashes Neurological - non-focal Lines/Catheters - peripheral IVs Laboratory (Last 24 Hours): No results found for this or any previous visit (from the past 24 hour(s)). Microbiology: Blood cx from [facility] (04/14/17): No growth T7-T8 aspiration cx from [facility] (04/15/17): No growth Radiology/Studies: KUB from [facility] (04/13/17): No acute findings Spine MRI from [facility] (04/14/17): Destructive changes at T7- T8 with enhancement consistent with discitis osteomyelitis. There is no definite epidural abscess present at this time. Nofocal cord signal abnormality. Assessment: 51 yo female h/o opiate abuse, OA, chronic back pain, kidney stones, admitted on 04/17/17 [facility] for management of acute on chronic mid-back pain in the setting of MRI suggestive of destructive changes at T7-T8 (with enhancement consistent with discitis osteomyelitis, but no definite epidural abscess present at this time and no focal cord signal abnormality. S/p CT-guided T7-T8 disc aspiration on 04/15/19 at OSH with prelim negative cultures as were surveillance blood cultures obtained on 04/14/17. Requested transfer with Neurosurgery involvement in the hope of addressing her spine abnormality and for mechanical stabilization. Currently, no other associated new neuro SxS. Also, the patient has remained afebrile with hemodynamic stability. Case discussed with ID upon admission and in agreement with holding off all antibiotic therapy for now (defer IV Vanco and Cefepime, pending clinical reassessment and for upcoming spine intervention with donovan-op cultures). Noted element of superimposed paraspinal musculoskeletal discomfort which muscle rub application added to therapy as well. Of note, the patient is s/p DAVIN/BSO in 2003 with reported colo then by her as being unremarkable, norecent bowel changes (tarry black stools, etc), and no prior mammography. I certify that the patient requires inpatient level of care due to aforementioned issue and specialty involvement. Plan: ?? Admit to Hospital Medicine ?? Spine consult, appreciated (Dr. Adelso Diallo informed of case on initial transfer request call) ?? RNs/LNAs, PT/OT and Daytime Babysitter appreciated ?? Neuro checks ?? Haskins-cx with CXR if spikes ?? Defer OSH IV Vanco and Cefepime for now ?? Cont to f/u OSH surveillance cultures ?? Oxycodone 5mg PO q4hrs for pain with Tylenol (minimize narcotic use in light of opiate abuse) ?? Muscle rub application to affected mid-back musculoskeletal pain ?? NBO's while on narcotics ?? Nicotine patch offered as smoking cessation measure, but the patient declined ?? Fall risk precaution ?? Physical Therapy referral ?? DVT prophylaxis with nightly SQ lovenox (and hold dose prior to day of spine surgery) ?? Outpatient routine surveillance cancer screening per her age group ?? Pneumovax and Influenza Immunizations given as needed. ?? Discussed Advanced Directives and Code Status. The patient wishesto be FULL CODE. ?? [phone] pager for now (for questions/concerns) => another hospitalist to assume the patient's care in the AM A copy of this document will be sent to the patient's Primary Care Physician and/or Referring Physician. CHAYO Sol DO, MD 04/17/2017 documented in this encounter Procedure Notes Alicia Villegas RN - 04/23/2017 8:03 AM EDTAssociated Order(s): PLACE PICC LINE: CONTACT VASCULAR ACCESS PICC/Midline Insertion Procedure Note Indications: Anti-infective and Access This insertion was not to replace a malfunctioning catheter. This insertion was not due to a suspected line-associated infection. Location of Procedure: X-Ray Room 11 Risks and Benefits: The risks and benefits of this procedure were reviewed and informed consent was obtained obtained. Time Out: Prior to the start of the procedure, the patient's identity, intended procedure, site/side, correct patient positioning and presence of the site sean was confirmed as applicable. The medical history and chart were reviewed to rule out potential contraindications to the planned procedure. Hand Hygiene: The roads and parking lots sweeper operator did perform hand hygiene prior to line insertion. Catheter type: PICC Lot number: [id number] Procedure Technique: Skin was prepped with chlorhexidine. Skin preparation agent was completely dry at the time of first skin puncture. The following barrier precaution methods were used:large sterile drape, maske/eye shield, large sterile gown, sterile gloves and cap. 2 ml of 1% Lidocaine was used for skin wheal. Ultrasound was used for guidance. Radiographic contrast agent was not injected for vein identification. Procedure Details: Order received for catheter placement. A 4 Fr. single lumen Bard Power catheter was placed into the right basilic vein over a 0.018 inch guidewire using modified seldinger technique and fluoroscopy. Arm circumference was 43 cm at 2 cm above the insertion site. Final catheter length (with trimming): 42 cm Internal: 42 cm External: 0 cm Tip in SVC per DR EVANS. The line was not placed over a guidewire. Post Procedure: Diagnosis: DISKITIS Blood return noted on aspiration of line after placement confirmed. 5 mls of normal saline infused free flowing to gravity via PICC after insertion. Sterile dressing applied: CHG Impregnated Tegaderm. Findings: The patient did tolerate the procedure well. No Complications. Procedure Comments: ALICIA VILLEGAS RN 04/23/2017 documented in this encounter Miscellaneous Notes Plan of Care - Molly Dale RN - 04/23/2017 4:55 PM EDT Problem: Patient Care Overview Goal: Plan of Care Review Outcome: Ongoing (Interventions Implemented as Appropriate) 04/23/171649 Coping/Psychosocial Plan Of Care Reviewed With patient OUTCOME EVALUATION NOTE: OUTCOME SUMMARY: Patient independent in room. MD going over discharge paperwork with patient. Refusing to wear TLSO brace. Plan for taxi to transport her to her daughters home. Scripts picked up at pharmacy for her andscripts for dilaudid given to her by MD. PICC line removed due to abx tx being PO now. Dilaudid x 1 now extra dose administered per MD approval for break through pain in her mid back. PLAN MOVING FORWARD: Discharge via taxi service to her daughters home. INDIVIDUALIZED FALL PREVENTION INTERVENTIONS: Patient-specific fall risk factors per assessment: [current deficits]: TLSO brace while ambulating Assistance [level of assistance required for transfers and ambulation]: Independent Supervision [direct monitoring required during toileting and ADLs]: none Surveillance [continuous indirect monitoring]: None Patient-specific fall prevention interventions for sensory deficits provided, if applicable: [X] N/A CPG GOAL OUTCOME EVALUATION: Goal: Individualization & Mutuality Outcome: Ongoing (Interventions Implemented as Appropriate) 04/17/17212904/19/17 1653 Mutuality/Individual Preferences What Anxieties, Fears or Concerns Do You Have About Your Health or Care? not understanding the pain -- What Questions Do You Have About Your Health or Care? How can we control the pain better? -- What Information Would Help Us Give You More Personalized Care? high pain tolerance due to past drughistory -- Individualization Patient Specific Preferences -- Pain control Goal: Fall Prevention-Safe Patient Handling Outcome: Ongoing (Interventions Implemented as Appropriate) 04/17/17 2130 04/19/17 0305 04/23/17 0800 Daily Care Interventions Self-Care Promotion -- -- independence encouraged Activity and Safety Assistive Device Front wheel walker -- -- Musculoskeletal Interventions Muscle Strengthening -- activity/mobility promoted;mobility in bed promoted -- Restraint Interventions Safety Promotion/Fall Prevention -- -- -- Positioning Body Position -- -- -- Blanchard Fall Risk History of Falling -- -- 0 Secondary Diagnosis -- -- 15 Ambulatory Aids -- -- 0 Intravenous Therapy/Heparin/Saline Lock -- -- 20 Gait/Transferring -- -- 10 Mental Status -- -- 0 Score -- -- 45 OTHER Blanchard Fall Risk -- -- High 04/23/17 1600 Daily Care Interventions Self-Care Promotion -- Activity and Safety Assistive Device -- Musculoskeletal Interventions Muscle Strengthening -- Restraint Interventions Safety Promotion/Fall Prevention safety round/check completed Positioning Body Position independent Blanchard Fall Risk History of Falling -- Secondary Diagnosis -- Ambulatory Aids -- Intravenous Therapy/Heparin/Saline Lock -- Gait/Transferring -- Mental Status -- Score -- OTHER Blanchard Fall Risk -- Goal: Infection Control Outcome: Ongoing (Interventions Implemented as Appropriate) 04/23/17 0900 04/23/17 1000 Safety Interventions Isolation Precautions -- standard precautions maintained Infection Prevention -- environmental surveillance performed Coping Strategies Supportive Measures active listening utilized;positive reinforcement provided -- Goal: Discharge Needs Assessment Outcome: Ongoing (Interventions Implemented as Appropriate) 04/17/17 1700 04/19/17201904/22/17 1750 Discharge Needs Assessment Concerns To Be Addressed -- adjustment to diagnosis/illness concerns -- Readmission Within The Last 30 Days -- -- no previous admission in last 30 days Equipment Needed After Discharge -- -- walker, standard;other (see comments) (brace ) Discharge Disposition -- -- home or self-care Current Health Anticipated Changes Related to Illness -- -- none Living Environment Transportation Available family or friend will provide -- -- Consult Note - Pramod Anaya RN - 04/23/2017 4:27 PM EDT Patient Guidelines for Self-Care after PICC (Peripherally Inserted Central Catheter) Removal Your PICC was removed on 04/23 at 1620 An antibiotic ointment was applied to the insertion site (where the PICC went into your skin). ___x___Betadine ointment was used (a dark reddish brown color, and should not be confused with blood) Bacitracin ointment was used. (a clear ointment). The nurse applied gauze and a transparent ( see-through) dressing over the insertion site. To help your PICC insertion site heal: *Avoid heavy lifting (for example, no more than a gallon of milk) or vigorous activities for 24 hours * Keep the dressing over the insertion site dry for 24 hours * You can remove the dressing after 24 hours. Call your doctor after your PICC has been removed if you experience any of the following: * Fever (temperature over 100.1F) * Chills * Drainage from the insertion site ( including bleeding). Remember the Betadine antibiotic ointment, if used, was to protect your skin when the PICC was removed, can look like blood! *Redness, warmth, pain, swelling, or a pink/red streak going up your arm *A knot at the insertion site or anywhere in the arm *If bleeding should occur, hold firm pressure for 3-5 minutes. Do not remove the dressing that the nurse put on when the PICC was removed.. If needed, apply another dressing over the first dressing. If bleeding does not stop, call or seek medical attention. Plan of Care - Alicia Villegas RN - 04/23/2017 10:03 AM EDT Problem: Health Knowledge, Opportunity to Enhance (Adult,NICU,Campus,Obstetrics,Pediatric) Goal: Knowledgeable about Health Subject/Topic Patient will demonstrate the desired outcomes by discharge/transition of care. Peripherally Inserted Central Catheter (PICC) Teaching Sheet Peripherally inserted central catheters (mtos-on-ufrr) (PICC) are used when you need IV (intravenous) medicines and fluids. A catheter is a small flexible plastic tube. The catheter is put in through avein under your skin. A vein is a tube inside your body that carries blood from the body to the heart. The catheter is usually put into a vein on the inside of your upper arm. Then it is threaded up this vein and ends in the blood vessel near your heart. The PICC catheter may be used for taking blood for laboratory tests. You may also get IV fluids and medicines quickly and easily. Having the catheter may keep your arm from being stuck many times with a needle. The catheter will have 1-3 small tails (tubes) coming from your arm where the catheter was put in. Why do I need a PICC line or midline catheter? PICC lines are used for snf treatments. PICC lines may be used for up to a year. They are often put in to give you IV medicines at home. You may need a PICC catheter because caregivers cannotuse smaller veins in your body. Smaller veins may be damaged, or they may have poor blood flow. ??? Catheters are also used in case of emergency when you would need medicines or fluids very quickly. ??? The following are medicines and treatments you may get when you have a PICC line. ? Antibiotics. These are medicines to prevent infection. ? Frequent blood sample collection. ? IV medicines that would make your smaller veins sore or damaged. ? Receiving IV fluids for a long period of time. ? Pain medicine. ? Total Parenteral Nutrition: This is also called TPN. TPN is a special liquid food that goes directly into your veins. ? Blood ? Chemotherapy (Medicine for cancer) What are the benefits of having a PICC line put in? Having a PICC line may keep your arm from being stuck many times with a needle to draw blood or start an IV (intravenous catheter) . ??? Through a PICC catheter, you may have blood taken for tests. You may also get IV fluids and medicines quickly and easily. ??? Small veins can be damaged or irritated by certain drugs or nutritional solutions. A PICC line helps to decrease vein irritation from antibiotics, IV pain drugs, or IV cancer drugs. ??? A PICC line can be left in place when you go home. If you go home with a PICC line in place, home care can be set up via the nurse Daytime Babysitter to help you. What are possible complications of having a PICC line put in? Some possible complications are: ??? bruising, swelling, or infection in the arm with the PICC line ??? mal-positioned catheter (catheter tip in wrong place) ??? occlusion (blocked catheter) ??? mechanical phlebitis (vein irritation) and thrombosis (clot) Your doctor is the person you should talk to if you have questions about what would happen if you donot choose to have a PICC line put in. Your doctor can talk to you about other choices you may have. What should I expect when it is put in? A written consent that gives your ok to have it put in needs to be signed after you understand that you are going to have a PICC put in, and all your questions about the procedure have been answered toyour satisfaction. This is a safety feature that the hospital practices before doing procedures. An experienced nurse who has been through special training and education will be putting this catheter in. The procedure is done in a specially equipped room in Interventional Radiology on the third floor. The PICC nurse will first talk to you about any questions that you may have. The PICC nurse willexplain to you what is going to be done before starting. Once you arrive in the procedure room in Interventional Radiology, the PICC nurse will then set up for the procedure. She will unwrap the sterile kit and open the needed supplies. A gown and mask and gloves will be worn while putting it in. An ultrasound machine will be used to help guide the catheterin the right place. This machine uses a handle with sound waves to find the vein. The area on your arm where the catheter will be put in is then numbed with a medicine put under yourskin with a tiny needle. The nurse will then put in the catheter using fluoroscopy (a type of x-ray)as a guide. Once the catheter is in your vein, it will be threaded up your arm to the area before your heart. While it is being threaded, you may be asked to turn your head. When the catheter is in, the nurse will place a small dressing on the site along with a little slade which will help keep the catheter in place. After the procedure is done, a radiologist (doctor in x-ray department) will look at your x-ray to make sure that the end of the catheter is in proper position to give your fluids and/or medications. What should I expect in the care of my PICC? A dressing that is specially made to prevent infections will be put on. After this, the dressing will only be changed once a week unless it needs it sooner. If you go home with the catheter in, you may take a shower as long as you keep the site dry. You edwina this by wearing a specially fitted PICC protector that will be provided to you before discharge from the hospital. The dressing at the site must be kept clean and dry. It is important that you watch for signs of infection at the site. Your healthcare provider should be notified if these occur: ??? Redness ??? Swelling ??? Pus ??? Pain at the site Other reasons to notify your healthcare provider are: ??? Catheter becomes partially or totally removed ??? Unable to infuse medication/fluid ??? Unable to draw back blood from the catheter. This may be an early sign that a clot is forming onthe end of the catheter. If this occurs, a medicine called Cathflo may be used to dissolve this clot. Ask the PICC nurse or your doctor, any questions you may have so you feel secure in consenting to having a PICC line. References: Vascular Access Device Selection, Insertion, and Management, [employer] 09/02. A Review of the Efficacy, Safety, Use, and Administration of Cathflo, [employer] 2005 Plan of Care - Steffi Myers RN - 04/23/2017 5:22 AM EDT Problem: Patient Care Overview Goal: Plan of Care Review Outcome: Ongoing (Interventions Implemented as Appropriate) 04/22/17 1507 04/22/17 1515 Plan of Care Review Progress improving -- Coping/Psychosocial Plan Of Care Reviewed With -- patient OUTCOME EVALUATION NOTE: OUTCOME SUMMARY: AOx4. Patient's pain level was 9/10 after dose of Dilaudid and MD Brii paged with order for additional Dilaudid which seems to have worked. Patient fall asleep for several hours. Patient with SBA independently walks to the bathroom with walker. PLAN MOVING FORWARD: Pain management, for PICC placement for technician terminal and repeater Antibiotic regimen. INDIVIDUALIZED FALL PREVENTION INTERVENTIONS: Patient-specific fall risk factors per assessment: uses walker, on pain medicine Assistance: Independent, SBA, FWW Supervision: Independent, Eyes on, arms reach Surveillance: Bed locked in low position, call mott within reach, purposeful hourly rounding, clutter free environment, bed/chair alarm on Patient-specific fall prevention interventions for sensory deficits provided: Yes CPG GOAL OUTCOME EVALUATION: Continue care plan as documented. Plan of Care - Bailey Petit RN - 04/22/2017 6:02 PM EDT Problem: Patient Care Overview Goal: Plan of Care Review Outcome: Ongoing (Interventions Implemented as Appropriate) 04/22/17 1507 04/22/17 1515 Plan of Care Review Progress improving -- Coping/Psychosocial Plan Of Care Reviewed With -- patient OUTCOME EVALUATION NOTE: OUTCOME SUMMARY: Pain in chair with increased pain in back compared to yesterday. Pt tolerating po pain medications. Pt ambulated in [place] with OT with walker and brace. PLAN MOVING FORWARD: Q4 neuro checks, pain control, IV ABX INDIVIDUALIZED FALL PREVENTION INTERVENTIONS: Patient-specific fall risk factors per assessment: Weakness, IV, Brace, walker Assistance: 1 assist, FWW Supervision: Independent Surveillance: Bed locked in low position, call mott within reach, purposeful hourly rounding, clutter free environment, bed/chair alarm on, Patient-specific fall prevention interventions for sensory deficits provided: Yes CPG GOAL OUTCOME EVALUATION: Continue care plan as documented. Goal: Individualization & Mutuality 04/17/17 2130 04/19/17 1653 Mutuality/Individual Preferences What Anxieties, Fears or Concerns Do You Have About Your Health or Care? not understanding the pain -- What Questions Do You Have About Your Health or Care? How can we control the pain better? -- What Information Would Help Us Give You More Personalized Care? high pain tolerance due to past drughistory -- Individualization Patient Specific Preferences -- Pain control Goal: Fall Prevention-Safe Patient Handling Outcome: Ongoing (Interventions Implemented as Appropriate) 04/17/17 2130 04/19/17 0305 04/22/17 0100 Daily Care Interventions Self-Care Promotion -- -- independence encouraged Activity and Safety Assistive Device Front wheel walker -- -- Musculoskeletal Interventions Muscle Strengthening -- activity/mobility promoted;mobility in bed promoted -- Restraint Interventions Safety Promotion/Fall Prevention -- -- -- Positioning Body Position -- -- -- Blanchard Fall Risk History of Falling -- -- -- Secondary Diagnosis -- -- -- Ambulatory Aids -- -- -- Intravenous Therapy/Heparin/Saline Lock -- -- -- Gait/Transferring -- -- -- Mental Status -- -- -- Score -- -- -- OTHER Blanchard Fall Risk -- -- -- 04/22/17 0850 04/22/17 1400 Daily Care Interventions Self-Care Promotion -- -- Activity and Safety Assistive Device -- -- Musculoskeletal Interventions Muscle Strengthening -- -- Restraint Interventions Safety Promotion/Fall Prevention -- activity supervised;fall prevention program maintained;nonskid shoes/slippers when out of bed;safety round/check completed Positioning Body Position -- up in chair Blanchard Fall Risk History of Falling 0 -- Secondary Diagnosis 15 -- Ambulatory Aids 15 -- Intravenous Therapy/Heparin/Saline Lock 20 -- Gait/Transferring 10 -- Mental Status 0 -- Score 60 -- OTHER Blanchard Fall Risk High -- Goal: Infection Control Outcome: Ongoing (Interventions Implemented as Appropriate) 04/22/17 0850 04/22/17 1400 Safety Interventions Isolation Precautions -- standard precautions maintained Infection Prevention -- environmental surveillance performed;rest/sleep promoted Coping Strategies Supportive Measures active listening utilized -- Goal: Discharge Needs Assessment Outcome: Ongoing (Interventions Implemented as Appropriate) 04/17/17 1700 04/19/17201904/22/17 1750 Discharge Needs Assessment Concerns To Be Addressed -- adjustment to diagnosis/illness concerns -- Readmission Within The Last 30 Days -- -- no previous admission in last 30 days Equipment Needed After Discharge -- -- walker, standard;other (see comments) (brace ) Discharge Disposition -- -- home or self-care Current Health Anticipated Changes Related to Illness -- -- none Living Environment Transportation Available family or friend will provide -- -- Goal: Interdisciplinary Rounds/Family Conf Outcome: Ongoing (Interventions Implemented as Appropriate) 04/22/17 1750 Interdisciplinary Rounds/Family Conf Participants nursing;patient;physical therapy;occupational therapy;physician;social work case manager Problem: Pain, Acute (Adult) Goal: Acceptable Pain Control/Comfort Level Patient will demonstrate the desired outcomes by discharge/transition of care. Outcome: Ongoing (Interventions Implemented as Appropriate) 04/22/17 1751 Pain, Acute (Adult) Acceptable Pain Control/Comfort Level making progress toward outcome Med Student Progress Note - Seth Sewell - 04/22/2017 4:49 PM EDT MEDICAL STUDENT PROGRESS NOTE Name: Carmen Beyer Age/Sex: 51 y.o. female Attending: Juan Miguel Bermudez MD Hospital Day: 6 ID ID: Carmen Beyer is a 51 y.o. female now Hospital Day: 6 with PMH of opiate abuse, OA, chronic back pain, kidney stones, who presented for worsening flank and back pain now believed likely 2/2 osteomyelitis/discitis of T7-T8. ? 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 Interval History ?? Objective: No acute events. Subjective: Pain is better controlled today on dilaudid and pregabalin. Mood is also better. ?? Denies sweating, headache/dizziness, chestpain/palpitations, SOB, nausea/vomiting, diarrhea/constipation, focal weakness/parasthesias ?? Medications per MAR: Enoxaparin (Lovenox) inj 40 mg x 1 at night Bengay - refusing Pericolace ? PRN Tylenol 650 mg PO q6 - taken x 4 Ibuprofen 600 mg PO q6 - taken x 4 Dilaudid 2 mg q4 - taken q4 x 5 Zofran Vitals Last value 24hr Range Temperature: 36 ??C (96.8 ??F) Temp: [36 ??C (96.8 ??F)-37 ??C (98.6 ??F)] Heart Rate: 57 Heart Rate: [57-66] Blood Pressure: (!) 154/98 (RN Notified) BP: (132-154)/(82-98) Respiratory Rate: 18 Resp: [18] SpO2: 98 % SpO2: [97 %-98 %] Intake & Output 04/21 0701 - 04/22 0700 In: 960 [P.O.:960] Out: 650 [Urine:650] Physical Exam Physical Exam Constitutional: She is oriented to person, place, and time. No distress. HENT: Mouth/Throat: Oropharynx is clear and moist. Eyes: EOM are normal. Pupils are equal, round, and reactive to light. Neck: Normal range of motion. Neck supple. Cardiovascular: Normal rate, regular rhythm and normal heart sounds. Pulmonary/Chest: Effort normal and breath sounds normal. Abdominal: Soft. Bowel sounds are normal. Musculoskeletal: No spinal tenderness Neurological: She is alert and oriented to person, place, and time. Skin: Skin is warm and dry. Psychiatric: She has a normal mood and affect. Labs Recent Labs 04/20/17 0547 04/19/17 0638 04/18/17 0552 WBC 5.3 4.9 4.6 HGB 11.6* 11.8 12.3 HCT 34.5* 35.0* 34.8* PLATELET 236 223 237 NEUTROABS 2.77 2.81 2.48 NA 143 143 141 K 3.5 3.6 3.7 CL 104 104 102 CO2 25 25 28 BUN 14 16 15 CREATININE 0.47* 0.52* 0.65* CALCIUM 9.0 8.8 9.0 GLUCOSE 87 88 78 HIV 1/2 abs and Ag negative Hep C ab negative IGRA pending Micro 04/19/17: Bone culture - Gram stain: Moderate WBCs seen, no micro seen - 04/22/17: Cultures resulted rare coag negative staph 04/21/17: Reflex Urine culture Urine: Recent Labs ? 04/20/17 1732 URINECULTURE 1,000-9,000 cfu/ml Gram Negative Rods* ?? Blood: No results for input(s): BLOODCX in the last 720 hours. Sputum: No results for input(s): LOWERRESPCX in the last 720 hours. Body Fluid: No results for input(s): BFCX in the last 720 hours. ?? 04/20/17: UA w/Reflex culture - positive for: protein (30), leukocytes (large), appearance (cloudy), RBC (5), WBC (11), Moderate (A), Squam Epith (11), Amorph Carol (Occasional) 04/15/17: OSH CT-guided T7-T8 biopsy - NGTD (last checked ?) Imaging & Studies 04/21/17: CXR PA & Lateral FINDINGS: Streaky bibasilar subsegmental atelectasis and/or scarring. Nonspecific prominence of the RIGHT hilum, felt to be superimposition of normal structures based on CT thoracic spine April 14, 2017. No confluent airspace opacity identified. Small pleural effusions with adjacent atelectasis. Cardiomediastinal contours within normal limits. Midthoracic discitis osteomyelitis better appreciated on prior CT and MRI. ? IMPRESSION Small pleural effusions. 04/18/17: MRI Lumbar Spine wwo Contrast Per Radiology note: IMPRESSION No evidence of discitis osteomyelitis complex in the lumbar spine. Degenerative changes associated with scoliosis with with asymmetric appearance greater on the concave sides the curve. Bilateral pars defects L5. ? 04/18/17: XR Thoracic Spine 2 views Per Radiology note: IMPRESSION Limited comparison to CT scan turning lathe tender suggests progressive destructive changes due to discitis at T7-8 with increased focal kyphosis at this level. ? 04/15/17: OSH CT CT-guided T7-T8 biopsy ASSESSMENT & PLAN Summary: Carmen Beyer is a 51 y.o. female now Hospital Day: 6 with PMH of opiate abuse, OA, chronic back pain, kidney stones, who presented to [facility] on 04/14/17 for left flank pain and worsening back pain. Workup was remarkable for CT spine suggestive of T7-T8 destructive changes. CT-guided disc aspiration at OSH with negative cultures to date, blood cultures at OSH also no growth. Ptwas transferred here for evaluation by ortho. Follow-up imaging here has been largely unremarkable; repeat CT-guided biopsy performed on 04/19. Pt has remained afebrile, hemodynamically stable, and withWBC wnl throughout course. Bone culture resulted 04/22/17 with rare coagulase negative staph. Plan tostart empiric treatment. # Acute on chronic mid-back pain Assessment: The patient's history, studies, and physical exam findings are largely consistent with vertebral osteomyelitis. This would??likely be??from hematogenous spread, and not spread from contiguous focus as there is no evidence of open fracture, skin breakdown w/vascular insufficiency, or epidural abscess on imaging. Spread from is possible but not likely given absence of sx. ESR 55 &??CRP 64.8 were both elevated on admission, consistent with osteomyelitis (although an ESR >??70 greatly increases likelihood of osteomyelitis), and should be trendedover time to monitor for improvement. According to iRta Ralph et al (2014), even though initial biopsy and blood cultures were negative, in setting of high clinical suspicion a repeat biopsy can yield positive results. ? Given the history of incarceration, there is concern for tuberculosis osteomyelitis,??or Pott's disease. According to Serge et al. (2017), TB osteo can present with an insidious course of worsening back pain over weeks to months, along with B symptoms of weight loss, fatigue, and night sweats, all of which has been reported by Ms. Beyer. Patients may lack systemic symptoms such as fever. Arguing against TB would be her past history of negative PPD tests, and the MRI findings are not exactly consistent with Pott's disease as there is involvement of the disc space (although this may indicate advanced disease). Bone biopsy culture is the gold standard, biopsy on 04/15 from [facility] includes TB and is pending. ID recommends further workup for TB including CXR and IGRA. If CXR positive, will follow with CT chest. Will also add on AFB stain from repeat bone biopsy; however both IGRA and AFB staincan be negative even in presence of TB osteomyelitis. PCR can be considered, with sensitivity of 94.7% and 83.3%, however antibiotic sensitivities would not be available. ? Also considered on the differential was malignancy, either primary bone or metastases to the spine. This was considered given the patient's family history of ovarian cancer and pancreatic cancer in multiple first-degree relatives. The pt also reported what can appear to be B symptoms: nearly 200lb weight loss over the past several years that was not intentional; she believes she has had decreased appetite with early satiety (a sense of fullness), and c/o hot flashes with night sweats for at least past month. CT abdomen w/o contrast at OSH on 04/13/17 does not appear to show any abnormality such as pancreatic mass, however this is low sensitivity. ? Also on differential is degenerative disc disease??and vertebral compression fractures given her history of early menopause and reportedly poor nutrition; however, the MRI findings are much more consistent with osteo given enhancement of two vertebrae. ? Plan: - Biopsy resulted rare coagulase negative staphylococcus, for which sensitivities are pending. Empiric treatment would likely be vancomycin. - PICC ordered for plan for long-term outpatient abx - Continue dilaudid 2 mg q4 PRN for pain; scheduled tylenol and ibuprofen - Continue pregabalin for pain - consult ID for OPAT - CRC's find VNA for PICC, teach how to do own inj, need approval - if not approved for OPAT or VNA, will need 6 weeks SNF - need discharge pain control plan to be handled by PCP ? Per Orthopaedic Surgery Consult: 04/18: No surgical indication at this time. - Activity- no bending/twisting/lifting >5lbs, off-shelf TLSO when OOB ambulating (ok for transfer to chair/bathroom without brace) - Follow-up- 1 month in spine center with XR thoracic spine # Routine - Diet: regular diet following procedure - DVT prophylaxis: not indicated at this time - PPI: taking # Dispo - Remain on floor - Pending biopsy results, TB workup ? References: ? Serge et al. Inf Dis Clin of [place] [facility]; 2017. Vol 31, Iss 2: 369-382 Rita Celeste et al. Eur J Clin Inf Micro Disease. 2013; 33(3):371-5 References: ? Serge et al. Inf Dis [facility]; 2017. Vol 31, Iss 2: 369-382 Rita Zhao al. Eur J Clin Inf Micro Disease. 2013; 33(3):371-5 __ Seth Sewell MS3 04/22/17 4:49 PM Pager: [phone] Plan of Care - Cong Apodaca, PT - 04/22/2017 4:10 PM EDT Problem: Patient Care Overview Goal: Plan of Care Review Outcome: Ongoing (Interventions Implemented as Appropriate) 04/22/17 7235 Coping/Psychosocial Plan Of Care Reviewed With patient Physical Therapy Treatment Number: 2 Pertinent History of Current Problem: Carmen Beyer is a 51 year old female admitted on 04/17/17 forback pain that has recently gotten much worse in the last month. She has a PMH of opiate abuse, OA, chronic back pain, kidney stones, who presented for worsening flank and back pain now believed likely2/2 osteomyelitis/discitis of T7-T8. ID team involved and may start on antibiotics. Team changing pain medications to find the regimen that manages her pain. Pt seen today for gait with cane and stair training. Pt demonstrating (I) with transfers and gait. Feeling more confident with walker but did manage with cane. Managed well on stairs with railing. Please see the Rehab Evaluation Summaries report for objective data and specifics of today???s session. Precautions/Restrictions: fall Precautions Comments: Spinal precautions were cleared and pt no longer needs to wear the TLSO she was admitted with. She can wear it if she prefers. Staff Mobility Recommendations: Continue to amb w/ FWW. Anticipated Physical Therapy Frequency: (PT goals met, cleared for d/c to homem once medically ready) Anticipated Discharge Disposition: home Equipment needs: Patient needs a walker to be ordered for d/c to home. Pager: [phone] CONG APODACA, PT 04/22/2017 Inpatient Physical Therapy Problem: Acute Rehab Services Goal & Intervention Plan Goal: Gait Training Goal Stand Alone Therapy Goal Outcome: Ongoing (Interventions Implemented as Appropriate) 04/20/17 1010 04/22/17 1515 Gait Training Goal Gait Training Goal, Date Established -- 04/22/17 Gait Training Goal, Time to Achieve by discharge -- Gait Training Goal, [place] Level independent -- Gait Training Goal, Assist Device walker, rolling -- Gait Training Goal, Distance to Achieve Amb household distances of 30' (I) w/ FWW with tolerable level of pain -- Gait Training Goal, Additional Goal Pt able to amb up & down stairs safely and (I) w/ railing -- Gait Training Goal, Outcome -- goal met Plan of Care - Jeniffer Atwood OT - 04/22/2017 3:18 PM EDT Problem: Patient Care Overview Goal: Plan of Care Review Outcome: Ongoing (Interventions Implemented as Appropriate) 04/22/17 1507 Plan of Care Review Progress improving Coping/Psychosocial Plan Of Care Reviewed With patient Occupational Therapy Treatment Note Pertinent History of Current Problem: Carmen Beyer is a 51 year old female admitted on 04/17/17 forback pain that has recently gotten much worse in the last month. She has a PMH of opiate abuse, OA, chronic back pain, kidney stones, who presented for worsening flank and back pain now believed likely2/2 osteomyelitis/discitis of T7-T8. Precautions/Restrictions: fall Precautions Comments: Spinal precautions were cleared and pt no longer needs to wear the TLSO she was admitted with. She can wear it if she prefers. Assessment: Pt seen for ADL and functional mobility to address OT goals. Pt performing functional mobility and toileting with supervision and cues for body mechanics to reduce pain and promote activitytolerance. Pt is motivated to regain her functional independence and was receptive to OT recommendations and education. Pt may benefit from AE for LB dressing to minimize the need for bending. Pt will benefit from ongoing therapeutic interventions to achieve pt's and therapy goals. Please refer to associated flowsheet data for treatment session details. Therapy Frequency: other (see comments) Anticipated Discharge Disposition: home with assist Pager: [phone] Jeniffer Atwood OT 04/22/2017 Occupational Therapy Rehabilitation Department Problem: Acute Rehab Services Goal & Intervention Plan Goal: Bathing Goal Stand Alone Therapy Goal Outcome: Ongoing (Interventions Implemented as Appropriate) 04/20/17 1534 04/22/17 1507 Bathing Goal Bathing Goal, Date Established 04/20/17 -- Bathing Goal, Time to Achieve 5 days -- Bathing Goal, Activity Type Pt will perform UB/LB bathing in stance with setup provided. -- Bathing Goal, Outcome -- goal ongoing Goal: Home Management Goal Stand Alone Therapy Goal Outcome: Ongoing (Interventions Implemented as Appropriate) 04/20/17 15304/22/17 1507 Home Management Goal Home Mgmt Goal, Date Established 04/20/17 -- Home Mgmt Goal, Time To Achieve 5 days -- Home Mgmt Goal, Activity Type Pt will perform drink/snack prep at ambulatory level using device as needed with modified I. -- Home Mgmt Goal, Outcome Achieved -- goal ongoing Goal: LB Dressing Goal Stand Alone Therapy Goal Outcome: Ongoing (Interventions Implemented as Appropriate) 04/20/17153304/22/17 1507 LB Dressing Goal LB Dressing Goal, Date Established 04/20/17 -- LB Dressing Goal, Time to Achieve 5 days -- LB Dressing Goal, Activity Type Pt will perform LB dressing using equip as needed with modified I. -- LB Dressing Goal, Outcome -- goal ongoing Goal: Toileting Goal Stand Alone Therapy Goal Outcome: Ongoing (Interventions Implemented as Appropriate) 04/20/17153304/22/17 1507 Toileting Goal Toileting Goal, Date Established 04/20/17 -- Toileting Goal, Time to Achieve 5 days -- Toileting Goal, Activity Type Pt will perform all aspects of toileting independently using device asneeded. -- Toileting Goal, [place] Level -- conditional independence;supervision required Toileting Goal, Outcome -- goal ongoing Goal: UB Dressing Goal Stand Alone Therapy Goal Outcome: Ongoing (Interventions Implemented as Appropriate) 04/20/17 15304/22/17 1507 UB Dressing Goal UB Dressing Goal, Date Established 04/20/17 -- UB Dressing Goal, Time to Achieve 5 days -- UB Dressing Goal, Activity Type Pt will perform UB dressing independently. -- UB Dressing Goal, Outcome -- goal ongoing Med Student Progress Note - Seth Sewell - 04/21/2017 9:33 PM EDT MEDICAL STUDENT PROGRESS NOTE Name: Carmen Beyer Age/Sex: 51 y.o. female Attending: Juan Miguel Bermudez MD Hospital Day: 5 ID ID: Carmen Beyer is a 51 y.o. female now Hospital Day: 5 with PMH of opiate abuse, OA, chronic back pain, kidney stones, who presented for worsening flank and back pain now believed likely 2/2 osteomyelitis/discitis of T7-T8. ? 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 Interval History ?? Objective: No acute events overnight. Received CXR. Hep C, HIV, UA. IGRA, urine culture in process. Called [facility] today. - Fungus YOON stain and culture show NGTD (from 04/15) - Anearobic and aerobic bacterial cultures show NGTD (from 04/15) - AFB stain is plated, unsure of result, will call back tomorrow - AFB culture is pending, sent out to [facility] ([phone]). Called [facility]: AFB culture takes3-4 weeks for prelim results, 8 weeks for final results. ?? Subjective: Has been refusing multiple scheduled pain meds (tylenol and ibuprofen) during the day (reports confusion about being able to take tylenol), taking oxycod q4 PRN, then pain worsened by night, o/n MD gave dilaudid 0.2 mg inj x1. ?? Denies fevers/chills/sweating, headache/dizziness, chestpain/palpitations, SOB, nausea/vomiting, diarrhea/constipation, focal weakness/parasthesias ?? Medications per MAR: Enoxaparin (Lovenox) inj 40 mg x 1 at night Bengay - refusing Pantoprazole 40 mg Pericolace ? PRN Tylenol 650 mg PO q6 - not taken Ibuprofen 600 mg PO q6 - taken x 2 Oxycodone 10 mg q4 - taken q4 x7 Zofran Compazine Vitals Last value 24hr Range Temperature: 37.3 ??C (99.1 ??F) Temp: [35.8 ??C (96.4 ??F)-37.3 ??C (99.1 ??F)] Heart Rate: 68 Heart Rate: [54-68] Blood Pressure: 142/83 BP: (126-151)/(75-97) Respiratory Rate: 18 Resp: [18-20] SpO2: 96 % SpO2: [96 %-100 %] Intake & Output 04/20 0701 - 04/21 0700 In: 1320 [P.O.:1320] Out: - Physical Exam Physical Exam Constitutional: She is oriented to person, place, and time. No distress. Eyes: EOM are normal. Neck: Normal range of motion. Neck supple. Cardiovascular: Normal rate, regular rhythm and normal heart sounds. Pulmonary/Chest: Effort normal and breath sounds normal. Abdominal: Soft. Bowel sounds are normal. Musculoskeletal: No tenderness thoracic spinous process Neurological: She is alert and oriented to person, place, and time. Skin: Skin is warm and dry. Psychiatric: She has a normal mood and affect. Labs Recent Labs 04/20/17 0547 04/19/17 0638 04/18/17 0552 WBC 5.3 4.9 4.6 HGB 11.6* 11.8 12.3 HCT 34.5* 35.0* 34.8* PLATELET 236 223 237 NEUTROABS 2.77 2.81 2.48 NA 143 143 141 K 3.5 3.6 3.7 CL 104 104 102 CO2 25 25 28 BUN 14 16 15 CREATININE 0.47* 0.52* 0.65* CALCIUM 9.0 8.8 9.0 GLUCOSE 87 88 78 HIV 1/2 abs and Ag negative Hep C ab negative IGRA pending Micro 04/21/17: Reflex Urine culture Urine: Recent Labs 04/20/17 1732 URINECULTURE 1,000-9,000 cfu/ml Gram Negative Rods* Blood: No results for input(s): BLOODCX in the last 720 hours. Sputum: No results for input(s): LOWERRESPCX in the last 720 hours. Body Fluid: No results for input(s): BFCX in the last 720 hours. 04/20/17: UA w/Reflex culture - positive for: protein (30), leukocytes (large), appearance (cloudy), RBC (5), WBC (11), Moderate (A), Squam Epith (11), Amorph Carol (Occasional) 04/19/17: Bone culture - Gram stain: Moderate WBCs seen, no micro seen - Cultures in process/NGTD ?? 04/15/17: OSH CT-guided T7-T8 biopsy - NGTD (last checked ?) Imaging & Studies 04/21/17: CXR PA & Lateral FINDINGS: Streaky bibasilar subsegmental atelectasis and/or scarring. Nonspecific prominence of the RIGHT hilum, felt to be superimposition of normal structures based on CT thoracic spine April 14, 2017. No confluent airspace opacity identified. Small pleural effusions with adjacent atelectasis. Cardiomediastinal contours within normal limits. Midthoracic discitis osteomyelitis better appreciated on prior CT and MRI. ?? IMPRESSION Small pleural effusions. 04/18/17: MRI Lumbar Spine wwo Contrast Per Radiology note: IMPRESSION No evidence of discitis osteomyelitis complex in the lumbar spine. Degenerative changes associated with scoliosis with with asymmetric appearance greater on the concave sides the curve. Bilateral pars defects L5. ? 04/18/17: XR Thoracic Spine 2 views Per Radiology note: IMPRESSION Limited comparison to CT scan turning lathe tender suggests progressive destructive changes due to discitis at T7-8 with increased focal kyphosis at this level. ? 04/15/17: OSH CT CT-guided T7-T8 biopsy ASSESSMENT & PLAN Summary: Carmen Beyer is a 51 y.o. female now Hospital Day: 5 with PMH of opiate abuse, OA, chronic back pain, kidney stones, who presented to [facility] on 04/14/17 for left flank pain and worsening back pain. Workup was remarkable for CT spine suggestive of T7-T8 destructive changes. CT-guided disc aspiration at OSH with negative cultures to date, blood cultures at OSH also no growth. Ptwas transferred here for evaluation by ortho. Follow-up imaging here has been largely unremarkable; repeat CT-guided biopsy performed on 04/19 with cultures pending. Pt has remained afebrile, hemodynamically stable, and with WBC wnl throughout course. We may soon start empiric therapy before cultures re sult. # Acute on chronic mid-back pain Assessment: The patient's history, studies, and physical exam findings are largely consistent with vertebral osteomyelitis. This would??likely be??from hematogenous spread, and not spread from contiguous focus as there is no evidence of open fracture, skin breakdown w/vascular insufficiency, or epidural abscess on imaging. Spread from is possible but not likely given absence of sx. ESR 55 & CRP 64.8 were both elevated on admission, consistent with osteomyelitis (although an ESR > 70 greatly increases likelihood of osteomyelitis), and should be trended over time to monitor for improvement. According to Rita Ralph et al (2014), even though initial biopsy and blood cultures were negative, in setting of high clinical suspicion a repeat biopsy can yield positive results. ?? Given the history of incarceration, there is concern for tuberculosis osteomyelitis, or Pott's disease. According to Serge et al. (2017), TB osteo can present with an insidious course of worsening backpain over weeks to months, along with B symptoms of weight loss, fatigue, and night sweats, all of which has been reported by Ms. Beyer. Patients may lack systemic symptoms such as fever. Arguing against TB would be her past history of negative PPD tests, and the MRI findings are not exactly consistent with Pott's disease as there is involvement of the disc space (although this may indicate advanced disease). Bone biopsy culture is the gold standard, biopsy on 04/15 from [facility] includes TB and is pending. ID recommends further workup for TB including CXR and IGRA. If CXR positive, will follow with CT chest. Will also add on AFB stain from repeat bone biopsy; however both IGRA and AFB stain can be negative even in presence of TB osteomyelitis. PCR can be considered, with sensitivity of 94.7% and 83.3%, however antibiotic sensitivities would not be available. ? Also considered on the differential was malignancy, either primary bone or metastases to the spine. This was considered given the patient's family history of ovarian cancer and pancreatic cancer in multiple first-degree relatives. The pt also reported what can appear to be B symptoms: nearly 200lb weight loss over the past several years that was not intentional; she believes she has had decreased appetite with early satiety (a sense of fullness), and c/o hot flashes with night sweats for at least past month. CT abdomen w/o contrast at OSH on 5/16/17 does not appear to show any abnormality such as pancreatic mass, however this is low sensitivity. ? Also on differential is degenerative disc disease??and vertebral compression fractures given her history of early menopause and reportedly poor nutrition; however, the MRI findings are much more consistent with osteo given enhancement of two vertebrae. ? Plan: - Pending biopsy/culture of T7-T8 - Hold abx for now, pending culture - Changed oxycodone 10 mg q4 PRN to dilaudid 2 mg q4 PRN for pain; scheduled tylenol and ibuprofen - Added pregabalin for pain ?? Orders remaining per ID recs: - pending urine culture - pending IGRA - Added bacterial, fungal, AFB stains to pathology specimen ? Per Orthopaedic Surgery Consult: 04/18: No surgical indication at this time. - Activity- no bending/twisting/lifting >5lbs, off-shelf TLSO when OOB ambulating (ok for transfer to chair/bathroom without brace) - Follow-up- 1 month in spine center with XR thoracic spine # Routine - Diet: regular diet following procedure - DVT prophylaxis: not indicated at this time - PPI: taking # Dispo - Remain on floor - Pending biopsy results, TB workup ? References: ? Serge et al. Inf Dis [facility]; 2017. Vol 31, Iss 2: 369-382 Rita Zhao al. Eur J Clin Inf Micro Disease. 2014 January; 33(3):371-5 __ Seth Sewell MS3 04/21/17 9:33 PM Pager: [phone] Plan of Care - France Mccauley RN - 04/21/2017 2:13 PM EDT Problem: Patient Care Overview Goal: Plan of Care Review Outcome: Ongoing (Interventions Implemented as Appropriate) 04/21/17 1408 Plan of Care Review Progress progress toward functional goals as expected Coping/Psychosocial Plan Of Care Reviewed With patient OUTCOME EVALUATION NOTE: OUTCOME SUMMARY: Patient c/o 9 pain, new orders for lyrica and dilaudid given, patient also taking tylenol and ibuprofen. Patient rested in bed majority of shift. PLAN MOVING FORWARD: Pain control Discharge planning INDIVIDUALIZED FALL PREVENTION INTERVENTIONS: Patient-specific fall risk factors per assessment: Chronic back pain Assistance: SBA, FWW Supervision: Independent Surveillance: Bed locked in low position, call mott within reach, purposeful hourly rounding, clutter free environment Patient-specific fall prevention interventions for sensory deficits provided: N/A CPG GOAL OUTCOME EVALUATION: Continue care plan as documented. Plan of Care - Sparkle Munguia RN - 04/21/2017 6:03 AM EDT Problem: Patient Care Overview Goal: Plan of Care Review Outcome: Ongoing (Interventions Implemented as Appropriate) OUTCOME EVALUATION NOTE: OUTCOME SUMMARY: pt reported that her pain was not managed well. i paged the dr and was given a one time dose. Pt's pain seems to be better controlled now. PLAN MOVING FORWARD: continue care INDIVIDUALIZED FALL PREVENTION INTERVENTIONS: Patient-specific fall risk factors per assessment: [current deficits]: Pt has pain in her back that restricts her movements Assistance [level of assistance required for transfers and ambulation]: sba Supervision [direct monitoring required during toileting and ADLs]: n/a Surveillance [continuous indirect monitoring]: vikyo Patient-specific fall prevention interventions for sensory deficits provided, if applicable: n/a CPG GOAL OUTCOME EVALUATION: Med Student Progress Note - Seth Sewell - 04/20/2017 5:03 PM EDT MEDICAL STUDENT PROGRESS NOTE Internal Medicine 2500 Name: Carmen Beyer Age/Sex: 51 y.o. female Attending: Juan Miguel Bermudez MD Hospital Day: 4 ID ID: Carmen Beyer is a 51 y.o. female now Hospital Day: 4 with PMH of opiate abuse, OA, chronic back pain, kidney stones, who presented for worsening flank and back pain now believed likely 2/2 osteomyelitis/discitis of T7-T8. ?? 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 No acute events overnight. Subjective: Left side pain worse this AM after procedure. Denies sweating, headache/dizziness, chestpain/palpitations, SOB, nausea/vomiting, diarrhea/constipation, focal weakness/parasthesias Medications per MAR: Enoxaparin (Lovenox) inj 40 mg x 1 at night Bengay - refusing Pericolace ?? PRN Tylenol 650 mg PO q6 - not taken Ibuprofen 600 mg PO q8 - taken x 4 Oxycodone 10 mg q4 - taken q4 x 5 Zofran Vitals Last value 24hr Range Temperature: 37.2 ??C (99 ??F) Temp: [36.5 ??C (97.7 ??F)-37.5 ??C (99.5 ??F)] Heart Rate: 58 Heart Rate: [51-71] Blood Pressure: 134/81 BP: (112-148)/(66-86) Respiratory Rate: 18 Resp: [16-18] SpO2: 95 % SpO2: [94 %-98 %] Intake & Output 04/19 0701 - 04/20 0700 In: 510 [P.O.:510] Out: - Physical Exam Physical Exam Constitutional: She is oriented to person, place, and time. Hunched over in bed. Tearful at times. HENT: Mouth/Throat: Oropharynx is clear and moist. Eyes: EOM are normal. Pupils are equal, round, and reactive to light. Neck: Normal range of motion. Neck supple. Cardiovascular: Normal rate, regular rhythm and normal heart sounds. Hands are without lesions, splinter hemorrhages. Pulmonary/Chest: Effort normal and breath sounds normal. She has no wheezes. She has no rales. Abdominal: Soft. Bowel sounds are normal. Musculoskeletal: No focal tenderness of thoracic spinous processes Neurological: She is alert and oriented to person, place, and time. Skin: Skin is warm and dry. Psychiatric: She has a normal mood and affect. Labs Recent Labs 04/20/17 0547 04/19/17 0638 04/18/17 0552 WBC 5.3 4.9 4.6 HGB 11.6* 11.8 12.3 HCT 34.5* 35.0* 34.8* PLATELET 236 223 237 NEUTROABS 2.77 2.81 2.48 NA 143 143 141 K 3.5 3.6 3.7 CL 104 104 102 CO2 25 25 28 BUN 14 16 15 CREATININE 0.47* 0.52* 0.65* CALCIUM 9.0 8.8 9.0 GLUCOSE 87 88 78 Micro 04/19/17: Bone culture - Gram stain: Moderate WBCs seen, no micro seen - Cultures in process/NGTD 04/15/17: OSH CT-guided T7-T8 biopsy - NGTD (last checked ?) Imaging & Studies 04/18/17: MRI Lumbar Spine wwo Contrast Per Radiology note: IMPRESSION No evidence of discitis osteomyelitis complex in the lumbar spine. Degenerative changes associated with scoliosis with with asymmetric appearance greater on the concave sides the curve. Bilateral pars defects L5. ?? 04/18/17: XR Thoracic Spine 2 views Per Radiology note: IMPRESSION Limited comparison to CT scan turning lathe tender suggests progressive destructive changes due to discitis at T7-8 with increased focal kyphosis at this level. ?? 04/15/17: OSH CT CT-guided T7-T8 biopsy ASSESSMENT & PLAN Summary: Carmen Beyer is a 51 y.o. female now Hospital Day: 4 with PMH of opiate abuse, OA, chronic back pain, kidney stones, who presented to [facility] on 04/14/17 for left flank pain and worsening back pain. Workup was remarkable for CT spine suggestive of T7-T8 destructive changes. CT-guided disc aspiration at OSH with negative cultures to date, blood cultures at OSH also no growth. Ptwas transferred here for evaluation by ortho. Follow-up imaging here has been largely unremarkable; repeat CT-guided biopsy performed on 04/19. Pt has remained afebrile, hemodynamically stable, and withWBC wnl throughout course. # Acute on chronic mid-back pain Assessment: The patient's history, studies, and physical exam findings are largely consistent with vertebral osteomyelitis. This would likely be from hematogenous spread, and not spread from contiguous focus as there is no evidence of open fracture, skin breakdown w/vascular insufficiency, or epidural abscess on imaging. Spread from is possible but not likely givenabsence of sx. ESR 55 & CRP 64.8 were both elevated on admission, consistent with osteomyelitis (although an ESR > 70 greatly increases likelihood of osteomyelitis), and should be trended over time to monitor for improvement. According to Rita Ralph et al (2014), even though initial biopsy and bl ood cultures were negative, in setting of high clinical suspicion a repeat biopsy can yield positiveresults. Given the history of incarceration, there is concern for tuberculosis osteomyelitis, or Pott's disease. According to Serge et al. (2017), TB osteo can present with an insidious course of worsening backpain over weeks to months, along with B symptoms of weight loss, fatigue, and night sweats, all of which has been reported by Ms. Beyer. Patients may lack systemic symptoms such as fever. Arguing against TB would be her past history of negative PPD tests, and the MRI findings are not exactly consistent with Pott's disease as there is involvement of the disc space (although this may indicate advanced disease). Bone biopsy culture is the gold standard, biopsy on 04/15 from [facility] includes TB and is pending. ID recommends further workup for TB including CXR and IGRA. If CXR positive, will follow with CT chest. Will also add on AFB stain from repeat bone biopsy; however both IGRA and AFB stain can be negative even in presence of TB osteomyelitis. PCR can be considered, with sensitivity of 94.7% and 83.3%, however antibiotic sensitivities would not be available. ?? Also considered on the differential was malignancy, either primary bone or metastases to the spine. This was considered given the patient's family history of ovarian cancer and pancreatic cancer in multiple first-degree relatives. The pt also reported what can appear to be B symptoms: nearly 200lb weight loss over the past several years that was not intentional; she believes she has had decreased appetite with early satiety (a sense of fullness), and c/o hot flashes with night sweats for at least past month. CT abdomen w/o contrast at OSH on 04/13/17 does not appear to show any abnormality such as pancreatic mass, however this is low sensitivity. ?? Also on differential is degenerative disc disease and vertebral compression fractures given her history of early menopause and reportedly poor nutrition; however, the MRI findings are much more consistent with osteo given enhancement of two vertebrae. ?? Plan: - Pending biopsy/culture of T7-T8 - Hold abx for now, pending culture - Cont oxycodone 10 mg q4 PRN for pain; changed PRN to scheduled tylenol and ibuprofen - Consider adding gabapentin/pregabalin Orders completed today per ID recs: - UA w/reflex culture - CXR - HIV, Hep. C antibodies - Interferon gamma release assay - Add bacterial, fungal, AFB stains to pathology specimen ?? Per Orthopaedic Surgery Consult: 04/18: No surgical indication at this time. - Activity- no bending/twisting/lifting >5lbs, off-shelf TLSO when OOB ambulating (ok for transfer to chair/bathroom without brace) - Follow-up- 1 month in spine center with XR thoracic spine # Routine - Diet: regular diet following procedure - DVT prophylaxis: not indicated at this time - PPI: not indicated at this time # Dispo - Remain on floor - Pending biopsy results, TB workup ? References: ?? Serge et al. Inf Dis [facility]; 2017. Vol 31, Iss 2: 369-382 Rita Zhao al. Eur J Clin Inf Micro Disease. 2014 January; 33(3):371-5 __ __ Seth Sewell MS3 04/20/17 5:02 PM Pager: [phone] Plan of Care - France Mccauley RN - 04/20/2017 3:56 PM EDT Problem: Patient Care Overview Goal: Plan of Care Review Outcome: Ongoing (Interventions Implemented as Appropriate) 04/20/17 1503 Plan of Care Review Progress improving Coping/Psychosocial Plan Of Care Reviewed With patient OUTCOME EVALUATION NOTE: OUTCOME SUMMARY: Patient ambulated with PT/OT. Patient declined scheduled tylenol throughout shift, stating tylenol just doesn't work, I'll stick with ibuprofen and oxy instead. PLAN MOVING FORWARD: Pain control Discharge planning INDIVIDUALIZED FALL PREVENTION INTERVENTIONS: Patient-specific fall risk factors per assessment: Chronic back pain Assistance: SBA, FWW Supervision: Independent Surveillance: Bed locked in low position, call mott within reach, purposeful hourly rounding, clutter free environment Patient-specific fall prevention interventions for sensory deficits provided: N/A CPG GOAL OUTCOME EVALUATION: Continue care plan as documented. Plan of Care - Cong Apodaca PT - 04/20/2017 2:03 PM EDT Problem: Patient Care Overview Goal: Plan of Care Review Outcome: Ongoing (Interventions Implemented as Appropriate) 04/20/17 1010 Coping/Psychosocial Plan Of Care Reviewed With patient Physical Therapy Assessment Pt seen for skilled PT Treatment Number: 1 / Evaluation. Please see the Rehab Evaluation Summaries report for objective data and specifics of today???s session. Pt tolerated session fine w/ improved pain level standing vs resting in bed. She is demonstrating (I) with bed mobility & transfers. She is ambulating in hallway using a FWWwith stand-by supervision. She had TLSO brace on that she obtained @ [facility] and reports thepressure from brace over her back feels good. Baseline she was (I) walking without any device and living @ daughter's home climbing FOS to use both levels of home. She tolerated staying OOB and agreed to sit up in recliner chair after walk. Encouraged her to continue mobilizing using FWW with [facility] staff while here and undergoing work-up and treatment. ID team to see patient and advise for treatment after her biopsy results from yesterday's procedure. Pertinent History of Current Problem: Carmen Beyer is a 51 year old female admitted on 04/17/17 forback pain that has recently gotten much worse in the last month. She has a PMH of opiate abuse, OA, chronic back pain, kidney stones, who presented for worsening flank and back pain now believed likely2/2 osteomyelitis/discitis of T7-T8. Staff Mobility Recommendations: Amb with walker stand-by supervision x 1. Precautions/Restrictions: fall Precautions Comments: Spinal precautions were cleared and pt no longer needs to wear the TLSO she was admitted with. She can wear it if she prefers. Anticipated Physical Therapy Frequency: (one more visit) Anticipated Discharge Disposition: home with assist Pager: [phone] CONG [place], PT 04/20/2017 Inpatient Physical Therapy Problem: Acute Rehab Services Goal & Intervention Plan Goal: Gait Training Goal Stand Alone Therapy Goal Outcome: Ongoing (Interventions Implemented as Appropriate) 04/20/17 1010 Gait Training Goal Gait Training Goal, Date Established 04/20/17 Gait Training Goal, Time to Achieve by discharge Gait Training Goal, [place] Level independent Gait Training Goal, Assist Device walker, rolling Gait Training Goal, Distance to Achieve Amb household distances of 30' (I) w/ FWW with tolerable level of pain Gait Training Goal, Additional Goal Pt able to amb up & down stairs safely and (I) w/ railing Goal: Physical Therapy Goal Stand Alone Therapy Goal Outcome: Ongoing (Interventions Implemented as Appropriate) 04/20/17 1010 Physical Therapy Goal PT Goal, Date Established 04/20/17 PT Goal, Time to Achieve by discharge PT Goal, Activity Type Patient (I) with Home Exercise Program PT Goal, [place] Level independent PT Goal, Outcome goal ongoing Consult Note - Mark Louie MD - 04/20/2017 1:42 PM EDT INFECTIOUS DISEASE INITIAL CONSULT NOTE Reason for Consult: T7-8 osteomyelitis Consulting Service: Medicine Consulting Attending: Juan Miguel Bermudez MD Admission Date: 04/17/2017 History of Present Illness: 51 y.o. female with a history of obesity and chronic lower back pain, transferred for suspected T7-8osteo/discitis. About 6 weeks ago, she presented to a hospital in [place] with left lower abdominal pain. She was scanned in the ED and observed and told she had a kidney stone. She was given pain meds and fell asleep and when she woke up, her pain had improved. She does not remember passing a stone, but does remember some vaginal bleeding around that time, not since. She was discharged from the ED without antibiotics. In the following weeks, she developed pain between her shoulder blades, worse on movement and with deep inspiration. No fevers or chills, but sweats. One week ago, she presented to [facility], where a CT scan showed destruction of the T7-8 vertebra. An MRI confirmed this. Blood cultures from 04/14 are negative, and a CT guided bone biopsy on 04/15 showed a negative gram stainand culture so far, negative fungal culture; AFB culture was sent out, results pending. She was started on vancomycin and cefepime after the biopsy. She was transferred for neurosurgical evaluation. Ortho spine here deemed no surgery necessary at this point. Yesterday, she had a repeat biopsy of her T7 vertebra, with specimen sent to pathology and culture. Gram stain shows WBC, but no organsisms; culture is negative so far. She has had no recent dental or medical procedures. No dental abscesses. She uses opiates, includingnasal heroin, but has never injected in her life. No dysuria. No trauma or skin infections. No foreign travel, but has been incarcerated, with last negative PPD about 6 monhts ago. She lives with her da ughter and grandchildren, a cat and a dog. She drinks unpasteurized milk at times and eats raw meat,rarely. Review of Systems: Pertinent positives and negatives noted in HPI. Remainder of systems reviewed and found negative. Allergies: No Known Allergies Past Medical and Surgical History: History reviewed. No pertinent past medical history. Past Surgical History: Procedure Laterality Date ??? DAVIN AND BSO 2003 Prior To Admission Medications: No prescriptions prior to admission. Inpatient Scheduled Medications: ??? acetaminophen 650 mg Oral 4 Times Daily ??? ibuprofen 600 mg Oral 4 Times Daily ??? pantoprazole 40 mg Oral Daily ??? sodium chloride 0.9 % 5 mL Intravenous BID ??? enoxaparin 40 mg Subcutaneous Nightly ??? senna-docusate 2 tablet Oral BID ??? methyl salicylate-menthol Topical (Top) TID Family History: Family History Problem Relation Age of Onset ??? Ovarian Cancer Mother 70 Social History and Habits: Social History Social History ??? Marital status: Single Spouse name: N/A ??? Number of children: 2 ??? Years of education: N/A Occupational History ??? Not on file. Social History Main Topics ??? Smoking status: Current Every Day Smoker Packs/day: 0.50 Years: 10.00 Types: Cigarettes ??? Smokeless tobacco: Never Used ??? Alcohol use No ??? Drug use: Yes Special: Opioids (heroin, pills) ??? Sexual activity: Not on file Other Topics Concern ??? Not on file Social History Narrative Physical Exam: Last value Range last 24 hrs Temperature Temp: 37.2 ??C (99 ??F) Temp: [36.5 ??C (97.7 ??F)-37.5 ??C (99.5 ??F)] Heart Rate Heart Rate: 58 Heart Rate: [51-71] Blood Pressure BP: 134/81 BP: (112-134)/(66-81) Respiratory Rate Resp: 18 Resp: [16-18] SpO2 SpO2: 95 % SpO2: [94 %-98 %] General Looks well, alert and oriented HEENT No jaundice Heart Regular, soft systolic murmur Lungs Clear Abdomen Soft, not tender Extremities No joint swelling, no edema No spinal tenderness Skin No rash Neuro Grossly intact Lines No central lines Laboratory: Recent Labs 04/20/17 0547 04/19/17 0638 04/18/17 0552 WBC 5.3 4.9 4.6 HGB 11.6* 11.8 12.3 HCT 34.5* 35.0* 34.8* PLATELET 236 223 237 Recent Labs 04/20/17 0547 04/19/17 0638 04/18/17 0552 NA 143 143 141 K 3.5 3.6 3.7 CL 104 104 102 CO2 25 25 28 BUN 14 16 15 CREATININE 0.47* 0.52* 0.65* CRP (mg/L) Date Value 04/17/2017 64.8 (H) Sed Rate (mm/hr) Date Value 04/17/2017 55 (H) Microbiology: Blood Cultures: 5/17 at OSH negative Urine Cultures: 04/20 in process Spinal biopsy: 04/15 at OSH Gram stain without organisms, culture without growth to date. Fungal and AFB pending. 04/19 Gram stain with WBC but without organisms, culture without growth to date. Radiology/Studies/Procedures: MRI T-spine reviewed with neuroradiology: enhancing T7 and T8 vertebral bodies with associated epidural enhancement without abscess Assessment: Carmen Beyer is a 51 y.o. female with mid-thoracic back pain for the past weeks, with an MRI very suggestive of discitis/osteomyelitis at T7-8. While osteomyelitis is more common in the lumbar spine, the appearance on MRI is much more suggestive of a bacterial of fungal infection than tuberculosis or a malignancy, according to our review with the neuroradiologist. Cultures so far are negative, either due to sampling error, a fastidious organism or a non-infectious process. By history, one might suspect a genitourinary pathogen like E.coli from her preceding abdominal pain/renal stone; less likely an oral pathogen, as she has poor dentition, but no dental abscesses recently. She quite convincingly denies any injection drug use. Her past incarceration puts her at risk of TB, although she says that she had a negative PPD 6 months ago. We recommend holding antibiotics for now, although we might have to pick an empiric antibiotic regimen in the next days if cultures remain negative. To stratify her risk for TB, we recommend a CXR and a Quantiferon, cognizant that a negative Quantiferon does not rule out active TB. We recommend speaking to the pathologist to request fungal, bacterial and mycobacterial stains on the pathology specimen. Recommendations: - hold antibiotics - CXR - Quantiferon - f/u cultures and pathology This patient was seen and discussed with ID attending Dr. Louie. Recommendations discussed with primary treating team. ID consult service will continue to follow patient. Do not hesitate to page us at [phone] with any further questions or concerns. Nicanor Loyola MD Infectious Disease Fellow Pager [phone] ID Attending I reviewed the patient's history with Dr. Loyola, I reviewed pertinent medical records, and I interviewed the patient myself. I agree with the history as detailed above. In brief, we were asked by Dr. Bermudez to see this 51 y.o. year-old female because of suspected vertebral osteomyelitis. Ms. Beyer has had several months of back and flank pain, including an episode about two months ago of flank pain that was felt to represent renal colic. Over the past few weeks she has had mid-back pain, and radiographs show abnormalities of T7-8 that are suggestive of discitis/osteomyelitis. An aspirationdone at an OSH prior to transfer is negative for growth so far, and [place] [facility] [place] Ms. Beyer has a history of drug use, but not of injecting drug use. I examined the patient myself, and my examination confirms Dr. Loyola's findings. Non-toxic, no spine tenderness. No significant murmur or embolic stigmata. Normal neurologic exam. Poor dentition but no signs of periodontal infection. Normal CBC, ESR 55, HSCRP 0.5 Dr. Loyola's assessment and plan were formulated in discussion with me at the time of our consultation, and I agree with them as documented. We would like to continue to hold off on antibiotic therapy until the culture obtained at [facility] [place] has had another day to incubate. We will address the issue of empiric therapy vs. another attempt to establish a diagnosis if the cultures remain negative. As therehave been opportunities for the patient to have been exposed to TB, we suggest a chest x-ray (as thoracic vertebral osteomyelitis can reflect TB, and most hematogenous osteomyelitis in adults is lumbar, not thoracic), and a UA, in light of the possible history of renal colic. We will advise further based on culture results, etc. Plan of Care - Mariana Trujillo, OT - 04/20/2017 10:15 AM EDT Problem: Patient Care Overview Goal: Plan of Care Review Outcome: Ongoing (Interventions Implemented as Appropriate) 04/20/17 1503 04/20/17 1534 Plan of Care Review Progress -- progress toward functional goals as expected Coping/Psychosocial Plan Of Care Reviewed With patient -- Occupational Therapy Evaluation Pertinent History of Current Problem: Carmen Beyer is a 51 year old female admitted on 04/17/17 forback pain that has recently gotten much worse in the last month. She has a PMH of opiate abuse, OA, chronic back pain, kidney stones, who presented for worsening flank and back pain now believed likely2/2 osteomyelitis/discitis of T7-T8. Precautions/Restrictions: fall Precautions Comments: spine precautions cleared - pt has TLSO but does not need to wear Social history/Occupational profile: Pt alternates between living with her 2 daughters. She plans tod/c to her daughters 2-story house in [place], [place] which requires her to climb a full flight of stairs(with railing). Pt reports her daughter does not work and is able to provide support. 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 Assessment: Pt has been seen by OT for evaluation, please refer to associated flowsheet data for details. Carmen Beyer presents with activity limitations and/or participation restrictions due to performance deficits in pain, impaired functional mobility, and decreased activity tolerance. These impairments have a significant impact on the patient's performance in the following areas of occupation: BADLs, IADLs, rest/sleep, leisure, driving, and social participation. Pt motivated to participate in OT evaluation and demonstrated ability to perform bed mobility/functional transfers with modified I. Pt is currently performing BADLs including toileting and LB dressing with S, requiring increased time due to pain. Pt wore a TLSO while ambulating in hallway using RW with S - spine precautions have beencleared and pt does not need to wear brace, however she felt it provided necessary support while ambulating. Pt would benefit from ongoing OT interventions to increase independence with self care and progress functional mobility while hospitalized. Anticipate pt will be able to safely d/c directly home with family support. Pt will likely not require follow-up OT services. Therapy Frequency: other (see comments) (2-4 times/week) Anticipated Equipment Needs at Discharge: other (see comments) (none anticipated) Anticipated Discharge Disposition: home with assist Pager: [phone] Mariana Trujillo OT 04/20/2017 Occupational Therapy Rehabilitation Department 2017 OT Evaluation Code Rationale: ?? Diagnosis & Pertinent Co-Morbidities affecting Plan of Care: see PMHx above ?? Clinical presentation: Stable Evolving Unstable X ?? Occupational Profile & Client History: Brief Expanded Extensive X ?? Assessment of Occupational Performance: 1-3 performance deficits X 3-5 performance deficits 5 + performance deficits Clinical decision making of moderate complexity using standardized patient assessment instrument andmeasurable assessment of functional outcome. Problem: Acute Rehab Services Goal & Intervention Plan Goal: Bathing Goal Stand Alone Therapy Goal Outcome: Ongoing (Interventions Implemented as Appropriate) 04/20/171533 Bathing Goal Bathing Goal, Date Established 04/20/17 Bathing Goal, Time to Achieve 5 days Bathing Goal, Activity Type Pt will perform UB/LB bathing in stance with setup provided. Goal: Home Management Goal Stand Alone Therapy Goal Outcome: Ongoing (Interventions Implemented as Appropriate) 04/20/171533 Home Management Goal Home Mgmt Goal, Date Established 04/20/17 Home Mgmt Goal, Time To Achieve 5 days Home Mgmt Goal, Activity Type Pt will perform drink/snack prep at ambulatory level using device as needed with modified I. Goal: LB Dressing Goal Stand Alone Therapy Goal Outcome: Ongoing (Interventions Implemented as Appropriate) 04/20/171533 LB Dressing Goal LB Dressing Goal, Date Established 04/20/17 LB Dressing Goal, Time to Achieve 5 days LB Dressing Goal, Activity Type Pt will perform LB dressing using equip as needed with modified I. Goal: Toileting Goal Stand Alone Therapy Goal Outcome: Ongoing (Interventions Implemented as Appropriate) 04/20/171533 Toileting Goal Toileting Goal, Date Established 04/20/17 Toileting Goal, Time to Achieve 5 days Toileting Goal, Activity Type Pt will perform all aspects of toileting independently using device asneeded. Goal: UB Dressing Goal Stand Alone Therapy Goal Outcome: Ongoing (Interventions Implemented as Appropriate) 04/20/171533 UB Dressing Goal UB Dressing Goal, Date Established 04/20/17 UB Dressing Goal, Time to Achieve 5 days UB Dressing Goal, Activity Type Pt will perform UB dressing independently. Plan of Care - Kiara Medina RN - 04/19/2017 8:21 PM EDT Problem: Patient Care Overview Goal: Plan of Care Review Outcome: Ongoing (Interventions Implemented as Appropriate) 04/19/172019 Coping/Psychosocial Plan Of Care Reviewed With patient Goal: Individualization & Mutuality Outcome: Ongoing (Interventions Implemented as Appropriate) Update plan of care as indicated. Goal: Fall Prevention-Safe Patient Handling Outcome: Ongoing (Interventions Implemented as Appropriate) 04/19/172019 Restraint Interventions Safety Promotion/Fall Prevention fall prevention program maintained Goal: Infection Control Outcome: Ongoing (Interventions Implemented as Appropriate) 04/19/172019 Safety Interventions Isolation Precautions standard precautions maintained Goal: Discharge Needs Assessment Outcome: Ongoing (Interventions Implemented as Appropriate) 04/19/172019 Discharge Needs Assessment Concerns To Be Addressed adjustment to diagnosis/illness concerns Goal: Interdisciplinary Rounds/Family Conf Outcome: Ongoing (Interventions Implemented as Appropriate) 04/19/172019 Interdisciplinary Rounds/Family Conf Participants nursing Problem: Pain, Acute (Adult) Goal: Identify Related Risk Factors and Signs and Symptoms Related risk factors and signs and symptoms are identified upon initiation of Human Response Clinical Practice Guideline (CPG) Outcome: Ongoing (Interventions Implemented as Appropriate) 04/19/172019 Pain, Acute Related Risk Factors (Acute Pain) procedure/treatment Goal: Acceptable Pain Control/Comfort Level Patient will demonstrate the desired outcomes by discharge/transition of care. Outcome: Ongoing (Interventions Implemented as Appropriate) 04/19/172019 Pain, Acute (Adult) Acceptable Pain Control/Comfort Level making progress toward outcome Comments: OUTCOME EVALUATION NOTE: OUTCOME SUMMARY: VSS. No resp distress. On room air. Neurologically intact. Voids in bathroom. No nausea or vomiting.No c/o pain. Dressing to back is dry and intact. PLAN MOVING FORWARD: See above. INDIVIDUALIZED FALL PREVENTION INTERVENTIONS: Patient-specific fall risk factors per assessment: [current deficits]: Age, dx, unfamiliar surroundings, medical devices. Assistance [level of assistance required for transfers and ambulation]: Hands and eyes on. Supervision [direct monitoring required during toileting and ADLs]: Call light in reach. Calls appropriately. Surveillance [continuous indirect monitoring]: Every hour purposeful rounding. Patient-specific fall prevention interventions for sensory deficits provided, if applicable: n/a CPG GOAL OUTCOME EVALUATION: See above. Med Student Progress Note - Seth Sewell - 04/19/2017 6:18 PM EDT MEDICAL STUDENT PROGRESS NOTE Internal Medicine 2500 Name: Carmen Beyer Age/Sex: 51 y.o. female Attending: Juan Miguel Bermudez MD Hospital Day: 3 ID ID: Carmen Beyer is a 51 y.o. female now Hospital Day: 3 with PMH of opiate abuse, OA, chronic back pain, kidney stones, who presented for worsening flank and back pain now believed likely 2/2 osteomyelitis/discitis of T7-T8. Hospital Problem List: #Back pain, acute on chronic #T7-8 osteo/diskitis Interval History Objective: Scheduled for repeat CT guided biopsy of T7-T8 vertebra today Subjective: Her pain is overall improved since admission but is persistent, located mostly in her back between my shoulder blades and her left lateral ribs. Her appetite has also improved. She is able to ambulate without weakness. At present she denies headache, dizziness, fevers/chills/sweats, nausea/vomiting, constipation/diarrhea, or focal weakness/parasthesias. Clarification of History obtained today: Ms. Beyer has had chronic low back pain for many years, she is unable to recall when it started. In the past she has treated her pain with illicit opiates (methadone, suboxone, intranasal heroin, but not IVDU). Starting approx. 1.5 months ago she presented to [facility] for severe LUQ pain and vomiting, which she attributed to a kidney stone, but she notes she was not treated for kidney stone then.Soon after discharge her pain worsened again, Medications per MAR: SCHEDULED Enoxaparin (Lovenox) inj 40 mg x 1 at night Bengay Pericolace PRN Tylenol 650 mg PO q6 - not taken Ibuprofen 600 mg PO q8 - taken x 2 Oxycodone 10 mg q4 - not taken Zofran - not taken Vitals Last value 24hr Range Temperature: 36.9 ??C (98.4 ??F) Temp: [36.2 ??C (97.2 ??F)-37.2 ??C (99 ??F)] Heart Rate: 62 Heart Rate: [48-66] Blood Pressure: 148/86 BP: (127-174)/(55-100) Respiratory Rate: 18 Resp: [11-18] SpO2: 98 % SpO2: [93 %-100 %] Intake & Output 04/18 0701 - 04/19 0700 In: 1240 [P.O.:1240] Out: 500 [Urine:500] Physical Exam Physical Exam Constitutional: She is oriented to person, place, and time. No distress. Pleasant, overweight woman who appears stated age HENT: Mouth/Throat: Oropharynx is clear and moist. Eyes: EOM are normal. Pupils are equal, round, and reactive to light. No scleral icterus. Neck: Normal range of motion. Neck supple. Cardiovascular: Normal rate, regular rhythm and normal heart sounds. Pulmonary/Chest: Effort normal and breath sounds normal. Abdominal: Soft. Musculoskeletal: No focal tenderness over thoracic spinous process or paravertebral Neurological: She is alert and oriented to person, place, and time. Skin: Skin is warm and dry. Psychiatric: She has a normal mood and affect. Tearful once during interview Labs Recent Labs 04/19/17 0638 04/18/17 0552 04/17/17 1849 WBC 4.9 4.6 4.4 HGB 11.8 12.3 12.2 HCT 35.0* 34.8* 35.2* PLATELET 223 237 236 NEUTROABS 2.81 2.48 2.61 NA 143 141 141 K 3.6 3.7 3.7 CL 104 102 101 CO2 25 28 28 BUN 16 15 14 CREATININE 0.52* 0.65* 0.55* CALCIUM 8.8 9.0 9.4 GLUCOSE 88 78 93 Last 3 LFTs No results for input(s): AST, ALT, ALKPHOS, BILITOT, BILIDIR in the last 7068 hours. Last Ca, Mg, Phos Recent Labs 04/19/17 0638 CALCIUM 8.8 Last 3 Coags No results for input(s): PT, INR, PTT in the last 168 hours. Last CRP, SEDRATE Recent Labs 04/17/17 1849 CRP 64.8* SEDRATE 55* Micro 04/15/17: OSH CT-guided T7-T8 biopsy - NGTD (last checked ?) Imaging & Studies 04/18/17: MRI Lumbar Spine wwo Contrast Per Radiology note: IMPRESSION No evidence of discitis osteomyelitis complex in the lumbar spine. Degenerative changes associated with scoliosis with with asymmetric appearance greater on the concave sides the curve. Bilateral pars defects L5. 04/18/17: XR Thoracic Spine 2 views Per Radiology note: IMPRESSION Limited comparison to CT scan turning lathe tender suggests progressive destructive changes due to discitis at T7-8 with increased focal kyphosis at this level. 04/15/17: OSH CT CT-guided T7-T8 biopsy ASSESSMENT & PLAN Summary: Carmen Beyer is a 51 y.o. female now Hospital Day: 3 with PMH of opiate abuse, OA, chronic back pain, kidney stones, who presented to [facility] on 04/14/17 for left flank pain and worsening back pain. Workup was remarkable for CT spine suggestive of T7-T8 destructive changes. CT-guided disc aspiration at OSH with negative cultures to date, blood cultures at OSH also no growth. Ptwas transferred here for evaluation by ortho. Follow-up imaging here has been largely unremarkable; repeat CT-guided biopsy performed on 04/19. Pt has remained afebrile and hemodynamically stable throughout course. # Acute on chronic mid-back pain The patient's history, studies, and physical exam findings are largely consistent with vertebral osteomyelitis. This would likely be from hematogenous spread, and not spread from contiguous focus as there is no evidence of open fracture, skin breakdown w/vascular insufficiency, or epidural abscess on imaging. Spread from is possible but not likely given absence of sx. ESR 55 & CRP 64.8 were both elevated on admission, consistent with osteomyelitis (althoughan ESR > 70 greatly increases likelihood of osteomyelitis), and should be trended over time to monitor for improvement. According to Rita Ralph et al (2014), even though initial biopsy and blood cultures were negative, in setting of high clinical suspicion a repeat biopsy can yield positive results. Also considered on the differential was malignancy, either primary bone or metastases to the spine. This was considered given the patient's family history of ovarian cancer and pancreatic cancer in multiple first-degree relatives. The pt also reported what can appear to be B symptoms: nearly 200lb weight loss over the past several years that was not intentional; she believes she has had decreased appetite with early satiety (a sense of fullness), and c/o hot flashes with night sweats for at least past month. CT abdomen w/o contrast at OSH on 04/13/17 does not appear to show any abnormality such as pancreatic mass, however this is low sensitivity. Also on differential is degenerative disc disease and vertebral compression fractures. She has a history of moderate chronic lower back pain, which from her view is different in nature from her acute, severe mid-upper back pain over this past month. She first noticed the pain when playing with her grandchildren, but otherwise there does not appear to have been an inciting event such as heavy lifting.Also she is young for compression fractures, but she does have risk factors including early menopause 2/2 DAVIN/BSO in 2003, and reportedly poor nutrition over the past couple of years. - Repeat biopsy/culture of T7-T8 by IR today - Hold abx for now, pending culture - Add oxycodone 10 mg q4 PRN for pain Per Orthopaedic Surgery Consult: 04/18: No surgical indication at this time. - Activity- no bending/twisting/lifting >5lbs, off-shelf TLSO when OOB ambulating (ok for transfer to chair/bathroom without brace) - Follow-up- 1 month in spine center with XR thoracic spine # Routine - Diet: regular diet following procedure - DVT prophylaxis: not indicated at this time - PPI: not indicated at this time # Dispo - Remain on floor - Pending biopsy results References: Rita Celeste et al. Eur J Clin Inf Micro Disease. 2013; 33(3):371-5 __ Seth Sewell MS3 04/19/17 6:34 PM Pager: [phone] Plan of Care - Dora Wheeler RN - 04/19/2017 5:50 PM EDT Problem: Patient Care Overview Goal: Plan of Care Review 04/19/17 8868 Plan of Care Review Progress improving Coping/Psychosocial Plan Of Care Reviewed With patient OUTCOME EVALUATION NOTE: OUTCOME SUMMARY: Patient NPO for CT guided bone biopsy. Patient allowed to ambulate from bed to chair/ bathroom without TLSO brace; brace in room is from outside hospital and is to being worn for walking longer distance. Patient receiving PO oxycodone and ibuprofen. Patient has gauze dressing to upper midline back from biopsy. Patient voiding adequate amounts. Will continue to monitor. PLAN MOVING FORWARD: -Pain Control -Mobilize INDIVIDUALIZED FALL PREVENTION: Fall Score: 60 Baseline mobility: Independent Assistance: -standby-assist with walker Supervision: -Arms-Reach for all transfers and ambulation Surveillance: -Bed Alarm/Chair Alarm -Purposeful Rounding -Team Care -Bedside Nurse Knowledge Exchange CPG OUTCOME EVALUATION: Goal: Individualization & Mutuality 04/19/17 1653 Individualization Patient Specific Preferences Pain control Goal: Fall Prevention-Safe Patient Handling 04/17/17 2130 04/18/17 0600 04/19/17 0305 Daily Care Interventions Self-Care Promotion -- independence encouraged;BADL personal objects within reach;BADL personal routines maintained -- Activity and Safety Assistive Device Front wheel walker -- -- Musculoskeletal Interventions Muscle Strengthening -- -- activity/mobility promoted;mobility in bed promoted Restraint Interventions Safety Promotion/Fall Prevention -- -- -- Positioning Body Position -- -- -- Blanchard Fall Risk History of Falling -- -- -- Secondary Diagnosis -- -- -- Ambulatory Aids -- -- -- Intravenous Therapy/Heparin/Saline Lock -- -- -- Gait/Transferring -- -- -- Mental Status -- -- -- Score -- -- -- OTHER Blanchard Fall Risk -- -- -- 04/19/17 0845 Daily Care Interventions Self-Care Promotion -- Activity and Safety Assistive Device -- Musculoskeletal Interventions Muscle Strengthening -- Restraint Interventions Safety Promotion/Fall Prevention activity supervised;fall prevention program maintained;nonskid shoes/slippers when out of bed;safety round/check completed Positioning Body Position independent Blanchard Fall Risk History of Falling 0 Secondary Diagnosis 15 Ambulatory Aids 15 Intravenous Therapy/Heparin/Saline Lock 20 Gait/Transferring 10 Mental Status 0 Score 60 OTHER Blanchard Fall Risk High Goal: Infection Control 04/19/17 0305 04/19/17 0845 Safety Interventions Isolation Precautions -- standard precautions maintained Infection Prevention environmental surveillance performed;rest/sleep promoted -- Coping Strategies Supportive Measures -- active listening utilized Initial Assessments - Cordelia Alexandra - 04/19/2017 1:19 PM EDT Office of Care Management Initial Assessment Cordelia Alexandra RN reviewed record and discussed patient with Care Team. Source of Information: patient and medical chart Introduced self/reviewed role; services accepted. Reason for Hospitalization: Back pain History reviewed. No pertinent past medical history. Hospitalizations Within the Past 30 Days: none Anticipated Length Of Stay (If known): unknown Current Decision-Making Capacity: Patient is alert and oriented and able to make her own decisions Advance Care Planning: Patient does not have AD's and was not interested in completing them Current Coping/Education/Information Needs: Patient is accepting of her diagnosis and has no needs at this time. Current Functional Ability: assist with equipment and person Functional Status Prior to Admission: Independent Home Environment: Patient states that she alternates living with her two daughter's and their children. One lives in [place], [place] but is in the process of moving, the other lives in [place], [place]. Patient states that she could go and live with this daughter upon discharge. Social & Family Supports/Community Resources: Patient has two daughter's and grandchildren that patient states are supportive. Behavioral Health History: patient denies Substance Use/Abuse: Patient denied any alcohol or substance use, however her H&P states that she was positive for heroin and other opioids, she has/is on suboxone. Patient states that she smokes about a half pack of cigarettes a day. Other Pertinent/Service Specific Information: NA Health/Prescription Coverage: Primary Insurance: Patient states that she is in the [place] for [place] Secondary Insurance: NA Prescription Coverage: NA Preferred Pharmacy: [facility] Other: NA Primary Care Provider: Augustus Martin MD [phone] Patient/Caregiver Goals of Treatment: To return to daughter's and stay healthy. Potential Needs for Transition of Care: Rehab/SNF: possibly if she needs IV abx Home Health: Possibly has never used a VNA service DME: does not have walker at home but is using one here and may need one on d/c depending on outcome Dialysis:NA Community Resources: NA Transportation: family Other: NA Anticipated Barriers to Discharge/Special Considerations: Possibly housing Plan: At this time it is unclear what d/c needs will be, waiting for team to determine best treatment plan. Patient will likely require some assistance either at a rehab or using VNA services. A member of the Care Management team will continue to monitor progress, follow for continuity of care and assist with transition of care planning. Cordelia Alexandra RN Pager: [phone] Plan of Care - Carlota tSern RN - 04/19/2017 3:13 AM EDT Problem: Patient Care Overview Goal: Plan of Care Review Outcome: Ongoing (Interventions Implemented as Appropriate) OUTCOME EVALUATION NOTE: OUTCOME SUMMARY: AOX4, calm and cooperative. PRN Oxycodone and Ibuprofen given for back pain with good effect. Ambulated to with 1 assist and walker. No neuro changes noted over night, Fall precaution maintained. Will continue to monitor. NPO post MN maintained PLAN MOVING FORWARD: Continue treatment plan Pain control INDIVIDUALIZED FALL PREVENTION INTERVENTIONS: Patient-specific fall risk factors per assessment: Back pain Assistance [level of assistance required for transfers and ambulation]: 1 assist with walker Supervision [direct monitoring required during toileting and ADLs]: Hands on Surveillance [continuous indirect monitoring]: Bed locked in low position, bed alarm, masimo, purposeful rounding, call mott within reach Patient-specific fall prevention interventions for sensory deficits provided, if applicable: [X] Yes CPG GOAL OUTCOME EVALUATION: Goal: Fall Prevention-Safe Patient Handling Outcome: Ongoing (Interventions Implemented as Appropriate) 04/19/17 0305 Musculoskeletal Interventions Muscle Strengthening activity/mobility promoted;mobility in bed promoted Restraint Interventions Safety Promotion/Fall Prevention activity supervised;fall prevention program maintained;nonskid shoes/slippers when out of bed Positioning Body Position independent Goal: Infection Control Outcome: Ongoing (Interventions Implemented as Appropriate) 04/19/17 0305 Safety Interventions Isolation Precautions standard precautions maintained Infection Prevention environmental surveillance performed;rest/sleep promoted Coping Strategies Supportive Measures active listening utilized Problem: Pain, Acute (Adult) Goal: Acceptable Pain Control/Comfort Level Patient will demonstrate the desired outcomes by discharge/transition of care. Outcome: Ongoing (Interventions Implemented as Appropriate) 04/19/17 0305 Pain, Acute (Adult) Acceptable Pain Control/Comfort Level making progress toward outcome Plan of Care - Danielle Agee RN - 04/18/2017 5:45 PM EDT Problem: Patient Care Overview Goal: Plan of Care Review Outcome: Ongoing (Interventions Implemented as Appropriate) 04/17/17 2130 04/18/17 0900 Plan of Care Review Progress no change -- Coping/Psychosocial Plan Of Care Reviewed With -- patient OUTCOME EVALUATION NOTE: OUTCOME SUMMARY: Neurologically intact. 9/10 back pain, moderately relieved by PRN Oxycodone and Ibuprofen. MRI and XR done of spine this afternoon; tolerated well. Patient felt her pain did increase after the MRI was finished. Hot packs given with minimal effect. Ortho consulted with patient this afternoon. Cooperative with staff. Safety maintained. PLAN MOVING FORWARD: NPO midnight Pain control INDIVIDUALIZED FALL PREVENTION INTERVENTIONS: Patient-specific fall risk factors per assessment: pain Assistance: I1 assist, FWW Supervision: Hands on Surveillance: Bed locked in low position, call mott within reach, purposeful hourly rounding, clutter free environment, bed/chair alarm on Patient-specific fall prevention interventions for sensory deficits provided: Yes CPG GOAL OUTCOME EVALUATION: Continue care plan as documented. Consult Note - Adelso Diallo MD - 04/18/2017 8:37 AM EDT Orthopaedic Surgery Consult Note Attending: Imani Carmen Beyer is a 51 y.o. female who presents to see us in consultation today at the request of Juan Miguel Bermudez MD. Chief Complaint: Back pain, History of Present Illness: Carmen Beyer is a 51 y.o. female with a H opiate abuse, OA, chronic back pain, kidney stones, presented to [facility] on 04/14/17 with left flank pain andinitial concern for recurrent kidney stone. CT performed suggestive of T7-T8 destructive changes concerning for discitis. The patient stated chronic back pain history, but more acute ~1 month prior to her presentation. Because of this acute pain, she purchased street heroin and snorted in the hope of easing her discomfort. Around this time, she also acquired Suboxone on the streets as additional measure to control her pain. The patient denies recent IV drug use. While hospitalized at [facility], the patient underwent CT- guided T7-T8 disc aspiration on 04/15/19 with prelim negative cultures as were surveillance blood cultures obtained on 04/14/17. Denies constitutional symptoms, any paraesthesias or weakness. Denies incontinence of bowel or bladder. Has been ambulating without issue Past Medical History: Patient Active Problem List Diagnosis Code ??? Back pain, acute on chronic M54.9 Past Surgical History: Past Surgical History: Procedure Laterality Date ??? DAVIN AND BSO 2004 No Known Allergies No current facility-administered medications on file prior to encounter. No current outpatient prescriptions on file prior to encounter. Family History: Noncontributory. Social History: Occupation: unemployed Tobacco: denies Alcohol: denies Illicit Drugs: as above, denies any history of IV drug use0 Social History Social History ??? Marital status: Single Spouse name: N/A ??? Number of children: 2 ??? Years of education: N/A Occupational History ??? Not on file. Social History Main Topics ??? Smoking status: Current Every Day Smoker Packs/day: 0.50 Years: 10.00 Types: Cigarettes ??? Smokeless tobacco: Never Used ??? Alcohol use No ??? Drug use: Yes Special: Opioids (heroin, pills) ??? Sexual activity: Not on file Other Topics Concern ??? Not on file Social History Narrative ??? No narrative on file Review of Systems: As per HPI, otherwise negative Objective: Temp: [36.4 ??C (97.5 ??F)-37 ??C (98.6 ??F)] Heart Rate: [52-67] Resp: [16] BP: (121-150)/(66-80) SpO2: [96 %-100 %] Heart Rate from SPO2: -- Gen: NAD, awake, alert, appr HEENT: NC, AT CV: RRR with no M/R/G Pulm: CTAB, no increased WOB Skin: Intact Psych: Normal mood and affect Motor: Segment Muscle Action R L C5 Deltoid Shoulder Abd 5 5 C5 Biceps Elbow flexion 5 5 C6 ECRL, ECRB Wrist extension 5 5 C7 Triceps Elbow extension 5 5 C8 Hand Grasp 5 5 T1 Hand intrinsics Finger abd/adduction 5 5 L2 Iliopsoas Hip flexion 5 5 L3 Quadriceps Knee extension 5 5 L4,5 Hamstring Knee Flexion 5 5 L4 Tibialis anterior Dorsiflexion 5 5 L5 Extensor hallucis Great toe extension 5 5 S1 Gastrocnemius, FHL Plantar flexion 5 5 Sensory: Sensation (light touch) (0=absent, 1-impaired, 2=normal: Segment location Right Left C4 top of AC joint 2 2 C5 lat side antecub fossa 2 2 C6 dorsal thumb 2 2 C7 dorsal middle finger 2 2 C8 dorsal small finger 2 2 T1 med side antecub fossa 2 2 T2 apex axilla 2 2 T3 3rd IS (intercostal space) 2 2 T4 nipple line 2 2 T5 5th IS 2 2 T6 6th IS 2 2 T7 7th IS 2 2 T8 8th IS 2 2 T9 9th IS 2 2 T10 10th iS 2 2 T11 11th iS 2 2 T12 mid inguinal ligament 2 2 L1 upper inner thigh 2 2 L2 mid-ant thigh 2 2 L3 med femoral condyle 2 2 L4 medial mal 2 2 L5 dorsum foot, 3rd MT 2 2 S1 lat heal 2 2 S2 Popliteal fossa 2 2 Back: mildly tender over mid thoracic spine Rectal exam: normal tone, active squeeze intact Reflexes: 1/4 ankles, 0/4 patella bilaterally, no clonus Imaging: MRI and CT of T spine with large diskitis/osteomyelitis complex at T7-8, with some erosion of R pedicle of T8 Assessment/Plan: 51 y.o. 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 This has been biopsied at an outside hospital and she is hemodynamically stable and has been ambulating normally. This does not represent a mechanically unstable spine, no surgical indication at this time, recommend treatment with antibiotics and and off-shelf TLSO brace while ambulating out of bed. - will get lumbar MRI to r/o other sites of infection - upright thoracic spine XRs - Activity- no bending/twisting/lifting >5lbs, off-shelf TLSO when OOB ambulating (ok for transfer to chair/bathroom without brace) - DVT prophylaxis- per primary - Antibiotics: Per primary - Follow-up- TBD - Discussed with Dr. Diallo I have contacted the referring team and discussed our evaluation and recommendations as listed above. Thank you for the opportunity to assist in their evaluation and treatment. Please call the Ortho resident dental receptionist with any questions or concerns Dulce Montaño M.D. Orthopaedic Surgery Pager: [phone] Spine Attending I have seen and examined the patient and agree with the resident's findings and plan. Pt has had increasing back pain for one month, also significant unintentional weight loss. Denies fevers or chills.Denies IV drug use, she does not believe she has any medical problem that would compromise her immune system (i.e. HIV, DM, auto-immune disorder). She has no h/o cancer. She can ambulate, but the back pain has been quite severe, especially pain radiating to her left flank. Was admitted to OSH about 1 week ago and had CT scan that showed destructive lesion at T7-T8, involving disk space, and causing focal kyphosis. There is some erosion of the left T8 pedicle, but posterior elements are intact, no interspinous or facet widening. MRI shows enhancing lesion in T7-T8 with no epidural abscess or cord compression. She is neuro intact on exam. She received IV abx at OSH prior to undergoing CT guided bx of lesion, which is reportedly no growing anything. This almost certainly represents an infectious process, though spine is likely stable, and she is neuro intact. I would recommend initial treatment with abx and off the shelf TLSO when ambulating as long as upright T- spine x-rays show no instability. While this is most likely a bacterial infection, atypical infection like TB or fungus should be ruled out. Indications for surgery would be gross instability on x-rays, neuro deficit, or uncontrolled sepsis. Her inflammatory markers are elevated, but she has not been septic (blood cx negative). Please obtain MRI lumbar spine with and without contrast to assess for infection there. Plan of Care - Felisha Penn RN - 04/18/2017 6:02 AM EDT Problem: Patient Care Overview Goal: Plan of Care Review Outcome: Ongoing (Interventions Implemented as Appropriate) 04/17/17204404/17/172129 Plan of Care Review Progress -- no change Coping/Psychosocial Plan Of Care Reviewed With patient -- OUTCOME EVALUATION NOTE: OUTCOME SUMMARY: Neruo:Carmen Beyer is a 51 y.o. female who is a FULL code. she is alert/oriented x4, Neuro checks q 4 hours. neruo intact, able to make all needs known. Strengths overall 5/5 (LUE 4/5 due to increased pain, without pain 5/5), PERRLA 3mm. Cardiac: VSS, Vital Signs q 6hrs while awake; Without CP. Respiratory: LS clearly diminished requiring RA to maintain SPO2 greater then 92; without SOB. Activity: Showered, washed hair and brushed teeth at 2030, tolerated well. required 0-1 assist in the bed and 1 assist with walker with ambulation. PT/OT consult. Vascular Access: #24 Right FA as well as a #22 Right FA, both from OSH, dressings intact, flushing well, sites without complications. : Independently voiding adequate amounts of clear yellow urine; see i/os. GI: last BM 04/17 at OSH; scheduled Senna given. PO intake: Adequate PO intake drank 2 glasses of ice water overnight. Takes pills whole with thins. Without coughing with drink/food intake. Pain: Pain, mid back pain 08/08. Started the shift with 5mg oxycodone q 4h, tylenol 650 q4hrs and topical Bengay; with poor relief of pain, per patient Bengay feels like burning instead of soothing. yardage caller MD paged about changing pain regiment; went back to original medication from OSH, 10mg [id number] and 600mg Ibuprofen q8hrs, tolerating change well, slept on/off throughout the night without complaints of uncontrolled pain. Skin: Band-Aid over mid back biopsy site, site without drainage. PLAN MOVING FORWARD: Consult orthopedics, Monitor and treat pain, continue plan of care as documented. INDIVIDUALIZED FALL PREVENTION INTERVENTIONS: Patient-specific fall risk factors per assessment: Back pain s/p biospy d/t discitis, weakness requiring walker d/t pain, narcotics [current deficits] Assistance: 1 Assist with FWW Supervision: Hands on Surveillance: Bed locked in low position, call mott within reach, purposeful hourly rounding, clutter free environment, bed/chair alarm on Patient-specific fall prevention interventions for sensory deficits provided: N/A CPG GOAL OUTCOME EVALUATION: Continue care plan as documented. Felisha Penn RN 04/18/2017 0602 Goal: Individualization & Mutuality Outcome: Ongoing (Interventions Implemented as Appropriate) 04/17/17 2130 Mutuality/Individual Preferences What Anxieties, Fears or Concerns Do You Have About Your Health or Care? not understanding the pain What Questions Do You Have About Your Health or Care? How can we control the pain better? What Information Would Help Us Give You More Personalized Care? high pain tolerance due to past drughistory Goal: Fall Prevention-Safe Patient Handling Outcome: Ongoing (Interventions Implemented as Appropriate) 04/17/17202304/17/17204404/17/172120 Daily Care Interventions Self-Care Promotion -- -- -- Activity and Safety Assistive Device -- -- -- Musculoskeletal Interventions Muscle Strengthening -- -- -- Blanchard Fall Risk History of Falling -- 0 -- Secondary Diagnosis -- 15 -- Ambulatory Aids -- 15 -- Intravenous Therapy/Heparin/Saline Lock -- 20 -- Gait/Transferring -- 10 -- Mental Status -- 0 -- Score -- 60 -- OTHER Blanchard Fall Risk -- High -- Restraint Interventions Safety Promotion/Fall Prevention -- -- safety round/check completed;fall prevention program maintained;nonskid shoes/slippers when out of bed;activity supervised Positioning Body Position supine, head elevated;supine, legs elevated;independent -- -- 04/17/172129 Daily Care Interventions Self-Care Promotion independence encouraged;BADL personal objects within reach;BADL personal routines maintained Activity and Safety Assistive Device Front wheel walker Musculoskeletal Interventions Muscle Strengthening activity/mobility promoted;mobility in bed promoted;personal routines for BADL/IADL promoted;sitting on edge of bed encouraged Blanchard Fall Risk History of Falling -- Secondary Diagnosis -- Ambulatory Aids -- Intravenous Therapy/Heparin/Saline Lock -- Gait/Transferring -- Mental Status -- Score -- OTHER Blanchard Fall Risk -- Restraint Interventions Safety Promotion/Fall Prevention -- Positioning Body Position -- Goal: Infection Control Outcome: Ongoing (Interventions Implemented as Appropriate) 04/17/17204404/17/172120 Safety Interventions Isolation Precautions -- standard precautions maintained Infection Prevention -- environmental surveillance performed;single patient room provided;rest/sleeppromoted Coping Strategies Supportive Measures decision-making supported;positive reinforcement provided;problem solving facilitated;self-care encouraged;verbalization of feelings encouraged -- Problem: Pain, Acute (Adult) Goal: Identify Related Risk Factors and Signs and Symptoms Related risk factors and signs and symptoms are identified upon initiation of Human Response Clinical Practice Guideline (CPG) Outcome: Ongoing (Interventions Implemented as Appropriate) 04/17/17 2130 Pain, Acute Related Risk Factors (Acute Pain) persistent pain;disease process Signs and Symptoms (Acute Pain) fear of reinjury;guarding/abnormal posturing/positioning;moaning;verbalization of pain descriptors;sleep pattern alteration Goal: Acceptable Pain Control/Comfort Level Patient will demonstrate the desired outcomes by discharge/transition of care. Outcome: Ongoing (Interventions Implemented as Appropriate) 04/17/17 2130 Pain, Acute (Adult) Acceptable Pain Control/Comfort Level making progress toward outcome documented in this encounter Plan of Treatment Not on filedocumented as of this encounter Procedures Procedure Name Priority Date/Time Associated Comments Diagnosis EKG 12-LEAD Routine 04/23/2017 1:52 PM Discitis of Results f or this EDT thoracic region procedure ar e in the results section. PLACE PICC LINE: Routine 04/23/2017 10:03 Results for this CONTACT VASCULAR AM EDT procedure a re in ACCESS the results section. XR PICC PLACEMENT OVER Routine 04/23/2017 9:55 AM Results for this 5 YEARS (IV TEAM) EDT procedure are in the results section. BASIC METABOLIC PANEL Routine 04/22/2017 9:49 PM Results for this (NON-FASTING) EDT procedure are in the results section. QUANTIFERON-TB GOLD Routine 04/20/2017 6:42 PM Re sults for this EDT procedure are i n the results section. HEPATITIS C ANTIBODY Routine 04/20/2017 6:42 PM R esults for this EDT procedure are i n the results section. HIV SCREEN, 4TH Routine 04/20/2017 6:42 PM Result s for this GENERATION EDT procedure are i n ([facility]) the resul ts section. XR CHEST PA AND Routine 04/20/2017 5:43 PM Result s for this LATERAL EDT procedure are i n the results section. URINE HOLD Routine 04/20/2017 5:32 PM Results f or this EDT procedure are i n the results section. URINALYSIS WITH REFLEX Routine 04/20/2017 5:32 PM Results for this CULTURE EDT procedure are i n the results section. URINE CULTURE Routine 04/20/2017 5:32 PM Results for this EDT procedure are i n the results section. HEMOGRAM Routine 04/20/2017 5:47 AM Results f or this EDT procedure are i n the results section. DIFFERENTIAL, Routine 04/20/2017 5:47 AM Results for this AUTOMATED EDT procedure are i n the results section. CBC (WITH DIFF) Routine 04/20/2017 5:47 AM EDT BASIC METABOLIC PANEL Routine 04/20/2017 5:47 AM Results for this (NON-FASTING) EDT procedure are in the results section. CT GUIDED BIOPSY Routine 04/19/2017 4:20 PM Resul ts for this BONE(EXTREMITIES/PELVI EDT proce dure are in S) the results section. ANAEROBIC CULTURE Routine 04/19/2017 4:00 PM Resu lts for this EDT procedure are i n the results section. BONE CULTURE, AEROBIC Routine 04/19/2017 4:00 PM & ANAEROBIC EDT BONE CULTURE Routine 04/19/2017 4:00 PM Results f or this EDT procedure are i n the results section. AFB CULTURE Routine 04/19/2017 4:00 PM Results f or this EDT procedure are i n the results section. FUNGAL STAIN Routine 04/19/2017 4:00 PM Results f or this EDT procedure are i n the results section. SURGICAL PATHOLOGY Routine 04/19/2017 2:00 PM Res ults for this REPORT EDT procedure are i n the results section. SPECIMEN TO PATHOLOGY Routine 04/19/2017 1:16 PM Results for this (NON-OR) EDT procedure are i n the results section. HEMOGRAM Routine 04/19/2017 6:38 AM Results f or this EDT procedure are i n the results section. DIFFERENTIAL, Routine 04/19/2017 6:38 AM Results for this AUTOMATED EDT procedure are i n the results section. CBC (WITH DIFF) Routine 04/19/2017 6:38 AM EDT BASIC METABOLIC PANEL Routine 04/19/2017 6:38 AM Results for this (NON-FASTING) EDT procedure are in the results section. XR THORACIC SPINE 2 STAT 04/18/2017 2:44 PM Re sults for this VIEWS EDT procedure are i n the results section. MRI LUMBAR SPINE STAT 04/18/2017 2:23 PM Resul ts for this WITH/WO CONTRAST EDT procedure a re in the results section. HEMOGRAM Routine 04/18/2017 5:52 AM Results f or this EDT procedure are i n the results section. DIFFERENTIAL, Routine 04/18/2017 5:52 AM Results for this AUTOMATED EDT procedure are i n the results section. CBC (WITH DIFF) Routine 04/18/2017 5:52 AM EDT BASIC METABOLIC PANEL Routine 04/18/2017 5:52 AM Results for this (NON-FASTING) EDT procedure are in the results section. CRP, ACUTE Routine 04/17/2017 6:49 PM Results f or this INFLAMMATION EDT procedure are i n the results section. HEMOGRAM Routine 04/17/2017 6:49 PM Results f or this EDT procedure are i n the results section. DIFFERENTIAL, Routine 04/17/2017 6:49 PM Results for this AUTOMATED EDT procedure are i n the results section. SEDIMENTATION RATE Routine 04/17/2017 6:49 PM Res ults for this EDT procedure are i n the results section. CBC (WITH DIFF) Routine 04/17/2017 6:49 PM EDT BASIC METABOLIC PANEL Routine 04/17/2017 6:49 PM Results for this (NON-FASTING) EDT procedure are in the results section. documented in this encounter Results EKG 12 Lead (04/23/2017 1:52 PM EDT) Component Value Ref Range Test Analysis Performed Pathologis t Method Time At Signature Ventricular rate 58 BPM MUSE SYSTEM Atrial Rate 58 BPM MUSE SYSTEM P-R Interval 102 ms MUSE SYSTEM QRS Duration 84 ms MUSE SYSTEM Q-T Interval 406 ms MUSE SYSTEM QTC Calculated 398 ms MUSE SYSTEM (Bezet) Calculated P [place] 43 degrees MUSE SYSTEM Calculated R [place] 22 degrees MUSE SYSTEM Calculated T [place] 26 degrees MUSE SYSTEM INTERPRETATION Sinus bradycardia with short NE MUSE SYSTEM Otherwise normal ECG No previous ECGs available Confirmed by MD Petey, Anuel ([id number]) on 04/23/2017 3:43:03 PM Specimen Anatomical Collection Method Collection Time Receive d Time (Source) Location / / Volume Laterality 04/23/2017 1:52 PM 7 3:43 EDT PM EDT Juan Miguel Bermudez MD ECG ORDERABLES Performing Organization Address City/State/ZIP Code Phon e Number MUSE SYSTEM Place PICC Line: Contact Vascular Access Page [phone] Extremity to exclude: No restrictions; Is PICC procedure required PRIOR to patients discharge? Yes (04/23/2017 10:03 AM EDT) Narrative Alicia Villegas RN - 04/23/2017 10:03 AM EDT Alicia Villegas RN ? 04/23/2017 10:03 AM PICC/Midline Insertion Procedure Note Indications: Anti-infective and Access This insertion was not to replace a malf unctioning catheter. This insertion was not due to a suspecte d line-associated infection. Location of Procedure: X-Ray Room 11 Risks and Benefits: The risks and benefits of this procedure were reviewed and informed consent was obtained obtained. Time Out: Prior to the start of the procedure, the patient's identity, intended procedure, site/side, correct p atient positioning and presence of the site sean was confirmed as applicable. The medical history and chart were reviewed to rule out potential contraindications to the planned procedu re. 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 Catheter type: PICC Lot number: [id number] Procedure Technique: Skin was prepped with chlorhexidine. Skin preparation agent was completely dr y at the time of first skin puncture. The following barrier precaution methods were used:large sterile drape, maske/eye shield, large sterile g own, sterile gloves and cap. 2 ml of 1% Lidocaine was used for skin w heal. Ultrasound was used for guidance. ??Radiographic contrast ag ent was not injected for vein identification. Procedure Details: Order received for catheter placement. A 4 Fr. single lumen Bard Power catheter was placed into the right basilic vein over a 0.018 inch guidewire using modified seld erin technique and fluoroscopy. Arm circumference was 43 cm at 2 cm above the insertion site. Final catheter length (with trimming): 4 2 cm Internal: 42 cm External: 0 cm Tip in SVC per DR EVANS. The line was not placed over a guidewire . Post Procedure: Diagnosis: DISKITIS Blood return noted on aspiration of line after placement confirmed. 5 mls of normal saline infuse d free flowing to gravity via PICC after insertion. Sterile dressi ng applied: CHG Impregnated Tegaderm. Findings: The patient did tolerate the procedure w ell. No Complications. Procedure Comments: ALICIA VILLEGAS RN 04/23/2017 Juan Miguel Bermudez MD PROCEDURE/MINOR SURGICAL ORD ERABLES XR PICC Placement Over 5 Years (IV Team) (04/23/2017 9:55 AM EDT) Anatomical Region Laterality Modality N/A Radio Fluoroscopy Specimen (Source) Anatomical Location Collection Method / Collectio n Time Received Time / Laterality Volume Narrative 04/23/2017 9:57 AM EDT EXAMINATION: XR PICC PLACEMENT OVER 5 YEARS (IV TEAM) CLINICAL HISTORY: Confirmation of PICC l ine placement TECHNIQUE: C-arm placement of PICC. Limi shelby view of the line tip only. COMPARISON: None FINDINGS: Intraprocedural frontal radiog raph of the mediastinum demonstrates a Right PICC, with the catheter tip projec shelby at the level of the mid SVC. Procedure Note Fox Evans MD - 04/23/2017Format ting of this note might be different from the original. EXAMINATION: XR PICC PLACEMENT OVER 5 YE ARS (IV TEAM) CLINICAL HISTORY: Confirmation of PICC l ine placement TECHNIQUE: C-arm placement of PICC. Limi shelby view of the line tip only. COMPARISON: None FINDINGS: Intraprocedural frontal radiog raph of the mediastinum demonstrates a Right PICC, with the catheter tip projec shelby at the level of the mid SVC. Juan Miguel Bermudez MD IMG FLUORO ORDERABLES Basic Metabolic Panel (non-fasting) (04/22/2017 9:49 PM EDT) athologist Signature Glucose Lvl 97 65 - 199 [facility] mg/dL [facility] Comment: Diabetes: >=200 mg/dL plus symp toms BUN 17 8 - 18 mg/dL [facility] Creatinine 0.74 0.70 - 1.20 mg/dL [facility] Comment: Please note that the pediatric reference intervals supplied above were not validated at [facility] [place]. Results from pediatri c patients should be interpreted in conjunction to the patient's age, height and muscle mass. Sodium 141 135 - 145 mmol/L [facility] Potassium 4.1 3.5 - 5.0 mmol/L [facility] Comment: Please note: ??Patients with WBC >100,00 0 may have falsely elevated Potassium levels. ??For accurate Potassium quantif ication in these patients send serum separator tube (gold top) for subsequent determinations. ??Contact the Clinical Chemistry Laboratory if there are any qu estions. Chloride 103 98 - 107 mmol/L [facility] CO2 27 22 - 31 mmol/L [facility] Anion Gap 11 5 - 15 mmol/L [facility] Calcium 8.8 8.5 - 10.5 mg/dL [facility] Estimated GFR >60 >=60 [facility] Comment: This estimated GFR (eGFR) value was calc ulated using the MDRD equation which has been validated on patients between t he ages of 18 and 70. The MDRD should not be used to assess kidney function in patients < 18 years of age or in patients with extremes of body mass, or in patients with acute kidney failure. This value should be multiplied by 1.2 f or patients. For further information please copy and past e the following links into your internet browser. http://Accent/DHnkdep http://Accent/DHMCnkf Specimen Anatomical Collection Method Collection Time Receive d Time (Source) Location / / Volume Laterality Blood specimen 04/22/2017 9:49 PM 017 9:59 (specimen) EDT PM EDT Resulting Agency Comment Spec In Lab Jaime Fang III, MD CHEMISTRY ORDERABLES Performing Organization Address City/[facility]/ZIP Code Phon e Number [address] Hepatitis C Antibody (04/20/2017 6:42 PM EDT) Analysis Performed At Patho logist Time Signature Hepatitis C Ab Negative Negative [facility] Comment: An updated Hepatitis C Ab assay reagent was implemented on 02/10/17. Please contact Dr. Thomas at [phone] with any qu estions or concerns. Specimen Anatomical Collection Method Collection Time Receive d Time (Source) Location / / Volume Laterality Blood specimen 04/20/2017 6:42 PM 017 6:50 (specimen) EDT PM EDT Resulting Agency Comment Spec In Lab Juan Miguel Bermudez MD IMMUNOLOGY ORDERABLES Performing Organization Address City/[facility]/ZIP Code Phon e Number [address] HIV Screen, 4th Generation (04/20/2017 6:42 PM EDT) Analysis Performed At Patho logist Time Signature HIV-1/2 Ab and Negative Negative [facility] Comment: This 4th Generation HIV test screens for the presence of the HIV-1 p24 antigen as well as antibodies reactive against H IV-1 and HIV-2. A negative screen does not rule out an acute HIV infection. If acute HIV infection is suspected, testing should be repeated in 2 - 3 week s or HIV nucleic acid testing performed. Specimen Anatomical Collection Method Collection Time Receive d Time (Source) Location / / Volume Laterality Blood specimen 04/20/2017 6:42 PM 017 6:50 (specimen) EDT PM EDT Resulting Agency Comment Spec In Lab Juan Miguel Bermudez MD IMMUNOLOGY ORDERABLES Performing Organization Address City/State/ZIP [place] [address] QuantiFERON-TB Gold (04/20/2017 6:42 PM EDT) Patholo gist Method Time Signature Quantiferon TB Negative Negative [facility] Comment: Nil (IU/mL)=0.05 TB Ag minus Nil (IU/mL)=0.00 Mitogen minus Nil (IU/mL)=>10 M. tuberculosis (TB) infection NOT likel y ?A negative specimen should have a TB Ag minus Nil value less than 0.35 IU/mL OR a TB Ag minus Nil greater than or equal to 0.35 IU/mL and in addition the TB Ag minus Nil value must be less t he 25% of the Nil value. A negative specimen should have a Mitogen minus Nil value greater than or equal to 0.5 IU/mL. ?A negative QuantiFERON-TB Gold IT result does not preclude the possibility of M. tuberculosis infection or tuberculosis disease: false negative results can be due to sta ge of infection (e.g., specimen obtained prior to the development of freedom lular immune response), co-morbid conditions which affect immune function, or other individual immunological factors. ?The performance of the QuantiFERON -TB Gold IT test has not been extensively evaluated with specimens from the follow ing groups of individuals: ?1. Individuals who have impaired o r altered immune function such as those who have HIV infection or AIDS, those wh o have transplantation managed with immunosuppressive treatment or others wh o receive immunosuppressive drugs (e.g., corticosteroids, methotrexate, az athioprine, cancer chemotherapy), and those who have other clinical conditions : diabetes, silicosis, chronic renal failure, hematological disorders (e.g., leukemia and lymphomas), and other specific malignancies (e.g., carcinoma o f the head or neck and lung). ?2. Individuals younger than age 17 years. ?3. women. Note: Diagnosing or excluding tuberculosis dis ease, and assessing the probability of LTBI, require a combination of epidemiol ogical, historical, medical, and diagnostic findings that should be taken into account when interpreting QuantiFERON-TB Gold results. Reference ( http://www.cdc.gov/nchstp/tb/) Specimen Anatomical Collection Method Collection Time Receive d Time (Source) Location / / Volume Laterality Blood specimen 04/20/2017 6:42 PM 017 1:24 (specimen) EDT PM EDT Resulting Agency Comment Spec In Lab Juan Miguel Bermudez MD CHEMISTRY ORDERABLES Performing Organization Address City/State/[place] [address] XR Chest PA & Lateral (Generic) (04/20/2017 5:43 PM EDT) Anatomical Region Laterality Modality Chest N/A Digital Radiography Specimen (Source) Anatomical Location Collection Method / Collectio n Time Received Time / Laterality Volume Impressions 04/21/2017 4:43 AM EDT Small pleural effusions. Narrative 04/21/2017 4:43 AM EDT EXAMINATION: XR CHEST PA AND LATERAL (GENERIC) CLINICAL HISTORY: Lung abnormality seen on CT spine; suspicion for tuberculosis TECHNIQUE: Frontal and lateral COMPARISON: None FINDINGS: Streaky bibasilar subsegmental atelectas is and/or scarring. Nonspecific prominence of the RIGHT hilum, felt to b e superimposition of normal structures based on CT thoracic spine April 14, 2017. No confluent airspace opacity identified. Small pleural effusions with adjacent atelectasis. Cardiomediastinal contours within normal limits. 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 Procedure Note Leodan Schumacher MD - 04/21/2017 EXAMINATION: XR CHEST PA AND LATERAL (GE NERIC) CLINICAL HISTORY: Lung abnormality seen on CT spine; suspicion for tuberculosis TECHNIQUE: Frontal and lateral COMPARISON: None FINDINGS: Streaky bibasilar subsegmental atelectas is and/or scarring. Nonspecific prominence of the RIGHT hilum, felt to b e superimposition of normal structures based on CT thoracic spine April 14, 2017. No confluent airspace opacity identified. Small pleural effusions with adjacent atelectasis. Cardiomediastinal contours within normal limits. 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 IMPRESSION Small pleural effusions. Juan Miguel Bermudez MD IMG DX ORDERABLES (ABNORMAL) Urine culture (04/20/2017 5:32 PM EDT) [facility] Method Time Signature Urine Culture 1,000-9,000 [facility] cfu/ml Gram [facility] (A) LABORATORY Organism Gram [facility] () [facility] Specimen Anatomical Collection Method Collection Time Receive d Time (Source) Location / / Volume Laterality Urine specimen 04/20/2017 5:32 PM 017 6:19 (specimen) EDT PM EDT Resulting Agency Comment Spec In Lab Juan Miguel Bermudez MD MICROBIOLOGY - GENERAL ORDER SIXTO Performing Organization Address City/[facility]/[place] [address] Urine Hold (04/20/2017 5:32 PM EDT) athologist Signature Urine Hold Sample in [facility]. [facility] Specimen Anatomical Collection Method Collection Time Receive d Time (Source) Location / / Volume Laterality Urine specimen Urine / Unknown 04/20/2017 5:32 PM 03/30 5:56 (specimen) EDT PM EDT Juan Miguel Bermudez MD URINE ORDERABLES Performing Organization Address City/[facility]/ZIP Code Phon e Number [place] [id number] (ABNORMAL) Urinalysis with reflex Culture (04/20/2017 5:32 PM EDT) Patholo gist Method Time Signature Glucose UA Negative Negative [facility] mg/dL [facility] Protein UA 30 (A) Negative [facility] mg/dL [facility] Bilirubin UA Negative Negative [facility] mg/dL [facility] Comment: Clinical correlation required for positi ve Urine Bilirubin results as false positive may occur with some drugs and d rug related products. If a false positive is suspected a serum total bili ibrahim should be considered if clinically indicated. Urobilinogen UA Normal Normal mg/dL [facility] pH UA 7.0 5.0 - 8.0 [facility] Blood UA Negative Negative mg/dL [facility] Ketones UA Negative Negative mg/dL [facility] Nitrite UA Negative Negative [facility] Leukocytes UA Large (A) Negative [facility] LABORATORY Appearance UA Cloudy (A) Clear [facility] Spec [place] UA 1.016 1.002 - 1.030 [facility] Color UA Yellow Yellow [facility] RBC UA 5 (H) 0 - 4 /HPF [facility] WBC UA 11 (H) 0 - 5 /HPF [facility] Bacteria UA Moderate (A) None /HPF [facility] Squam Epith UA 11 (H) <=4 /HPF [facility] Amorph Carol UA Occasional (A) None /HPF [facility] Culture Reflexed Yes [facility] Specimen Anatomical Collection Method Collection Time Receive d Time (Source) Location / / Volume Laterality Urine specimen 04/20/2017 5:32 PM 017 5:55 (specimen) EDT PM EDT Resulting Agency Comment Spec In Lab Juan Miguel Bermudez MD URINE ORDERABLES Performing Organization Address City/State/ZIP [place] [address] Differential, Automated (04/20/2017 5:47 AM EDT) athologist Signature Neutrophils % 51.9 % [facility] Neutr Abs (ANC) 2.77 1.70 - [facility] 6.10 [facility] x10(3)/[facility] LABORATORY Lymphocytes % 35.4 % [facility] Lymphocytes Abs 1.9 0.9 - 3.2 [facility] x10(3)/[facility] LABORATORY Monocytes % 6.9 % [facility] Monocyte Abs 0.4 0.3 - 0.9 [facility] x10(3)/[facility] LABORATORY Eosinophils % 5.2 % [facility] Eosinophils Abs 0.3 0.0 - 0.4 [facility] x10(3)/[facility] LABORATORY Basophils % 0.4 % [facility] Basophils Abs 0.0 0.0 - 0.1 [facility] x10(3)/[facility] LABORATORY Immature Gran % 0.20 % [facility] Comment: Immature granulocytes(IG's)percentage an d absolute count will include metamyelocytes, myelocytes, and promyelo cytes. Blood smears from CBCs yielding IG's will be scanned manually for concor dance. If this scan disagrees with the automated IG or if promyelocytes are not ed, a manual differential will be performed. Grace Gran Abs 0.01 0.00 - 0.04 x10(3)/[facility] Specimen Anatomical Collection Method Collection Time Receive d Time (Source) Location / / Volume Laterality Blood specimen 04/20/2017 5:47 AM 017 6:00 (specimen) EDT AM EDT Resulting Agency Comment Spec In Lab Chayo Sol Do, MD HEMATOLOGY ORDERABLES Performing Organization Address City/State/ZIP [place] [address] (ABNORMAL) Hemogram (04/20/2017 5:47 AM EDT) Analysis Performed At Patho logist Time Signature WBC 5.3 4.0 - 9.5 [facility] x10(3)/[facility] LABORATORY RBC 3.79 (L) 4.00 - [facility] 5.21 [facility] x10(6)/[facility] LABORATORY Hemoglobin 11.6 (L) 11.7 - [place] 15.5 gm/dL [facility] Hematocrit 34.5 (L) 35.7 - [place] KIM 45.8 % [facility] MCV 91.0 82.6 - [facility] 94.4 [facility]ATORY MCH 30.6 27.1 - [place] 32.0 pg [facility] MCHC 33.6 31.7 - [facility] 35.0 gm/dL [facility] Platelets 236 145 - 357 [facility] x10(3)/[facility] LABORATORY RDWSD 43.8 37.0 - [place] 46.0 [facility] LABORATORY RDWCV 13.3 11.5 - [facility] 14.1 % [facility] MPV 9.7 7.6 - 12.9 [facility] LABORATORY nRBC % Auto 0.0 % [facility] nRBC Abs Auto 0.000 0.000 - [facility] 0.000 [facility] x10(3)/[facility] LABORATORY Specimen Anatomical Collection Method Collection Time Receive d Time (Source) Location / / Volume Laterality Blood specimen 04/20/2017 5:47 AM 017 6:00 (specimen) EDT AM EDT Resulting Agency Comment Spec In Lab Chayo Sol Do, MD HEMATOLOGY ORDERABLES Performing Organization Address City/State/ZIP [place] [address] (ABNORMAL) Basic Metabolic Panel (non-fasting) (04/20/2017 5:47 AM EDT) athologist Signature Glucose Lvl 87 65 - 199 [facility] mg/dL [facility] Comment: Diabetes: >=200 mg/dL plus symp toms BUN 14 8 - 18 mg/dL [facility] Creatinine 0.47 (L) 0.70 - 1.20 mg/dL [facility] Comment: Please note that the pediatric reference intervals supplied above were not validated at [facility] [place]. Results from pediatri c patients should be interpreted in conjunction to the patient's age, height and muscle mass. Sodium 143 135 - 145 mmol/L [facility] Potassium 3.5 3.5 - 5.0 mmol/L [facility] Comment: Please note: ??Patients with WBC >100,00 0 may have falsely elevated Potassium levels. ??For accurate Potassium quantif ication in these patients send serum separator tube (gold top) for subsequent determinations. ??Contact the Clinical Chemistry Laboratory if there are any qu estions. Chloride 104 98 - 107 mmol/L [facility] CO2 25 22 - 31 mmol/L [facility] Anion Gap 14 5 - 15 mmol/L [facility] Calcium 9.0 8.5 - 10.5 mg/dL [facility] Estimated GFR >60 >=60 [facility] Comment: This estimated GFR (eGFR) value was calc ulated using the MDRD equation which has been validated on patients between t he ages of 18 and 70. The MDRD should not be used to assess kidney function in patients < 18 years of age or in patients with extremes of body mass, or in patients with acute kidney failure. This value should be multiplied by 1.2 f or patients. For further information please copy and past e the following links into your internet browser. http://Accent/DHnkdep http://Accent/DHMCnkf Specimen Anatomical Collection Method Collection Time Receive d Time (Source) Location / / Volume Laterality Blood specimen 04/20/2017 5:47 AM 017 6:01 (specimen) EDT AM EDT Resulting Agency Comment Spec In Lab Chayo T Do CHEMISTRY ORDERABLES Performing Organization Address City/State/ZIP [place] [address] Guided Biopsy Bone (04/19/2017 4:20 PM EDT) Anatomical Region Laterality Modality Computed Tomography Specimen (Source) Anatomical Location Collection Method / Collectio n Time Received Time / Laterality Volume Impressions 04/20/2017 2:33 PM EDT Technically successful T7 vertebral body bone biopsy I, Dr. Lima was present for the enti re procedure I have personally reviewed the image(s) and the residents interpretation and agree with the findings, Jaime Lopez MD at 04/20/2017 2:33 PM Narrative 04/20/2017 2:33 PM EDT EXAMINATION: CT GUIDED BIOPSY BONE CLINICAL HISTORY: T7-8 Osteo, need cultu re samples TECHNIQUE: CT guided T7 vertebral body b one biopsy. COMPARISON: MRI of the thoracic spine pe rformed on an outside facility on April 12, 2017 FINDINGS: After informed written consent was obtai nadeem, the patient was placed prone on the CT fluoroscopy table. Due t o the painful nature of the procedure, moderate sedation was given to the patie nt via intravenous administration of Versed and fentanyl with continuous monitoring of vital signs. Noncontrast i mages of the thoracic spine were obtained. The area overlying the left T7 pedicle was sterilely prepped and draped. Approximately 5 cc of 1% lidocai ne was used for local anesthetic . Under realtime CT fluoroscopy, a 13-gauge Stry ker needle system was advanced through the left T7 pedicle int o the T7 vertebral body using intermittent CT fluoroscopic guidance. These were sent for culture and surgical pathology. At this point, the needle was removed. The patient tolerated the p rocedure well and there were no immediate complications. Procedure Note Jaime Lima MD - 04/20/2017Formatt ing of this note might be different from the original. EXAMINATION: CT GUIDED BIOPSY BONE CLINICAL HISTORY: T7-8 Osteo, need cultu re samples TECHNIQUE: CT guided T7 vertebral body b one biopsy. COMPARISON: MRI of the thoracic spine pe rformed on an outside facility on April 12, 2017 FINDINGS: After informed written consent was obtai nadeem, the patient was placed prone on the CT fluoroscopy table. Due t o the painful nature of the procedure, moderate sedation was given to the patie nt via intravenous administration of Versed and fentanyl with continuous monitoring of vital signs. Noncontrast i mages of the thoracic spine were obtained. The area overlying the left T7 pedicle was sterilely prepped and draped. Approximately 5 cc of 1% lidocai ne was used for local anesthetic . Under realtime CT fluoroscopy, a 13-gauge Stry ker needle system was advanced through the left T7 pedicle int o the T7 vertebral body using intermittent CT fluoroscopic guidance. These were sent for culture and surgical pathology. At this point, the needle was removed. The patient tolerated the p rocedure well and there were no immediate complications. IMPRESSION Technically successful T7 vertebral body bone biopsy I, Dr. Lima was present for the enti re procedure I have personally reviewed the image(s) and the residents interpretation and agree with the findings, Jaime Lopez MD at 04/20/2017 2:33 PM Juan Miguel Bermudez MD IMG CT ORDERABLES AFB culture (04/19/2017 4:00 PM EDT) Patholo gist Method Time Signature Acid Fast No Acid Fast MOLLY KIM Bacilli Bacilli [facility] Culture isolated [facility] Acid Fast No Acid Fast MOLLY KIM Stain Bacilli seen [facility] Specimen Anatomical Collection Method Collection Time Receive d Time (Source) Location / / Volume Laterality Specimen from 04/19/2017 4:00 PM 04/22/20 17 8:28 bone (specimen) EDT AM EDT Resulting Agency Comment Spec In Lab Juan Miguel Bermudez MD MICROBIOLOGY - GENERAL ORDER SIXTO Performing Organization Address City/[facility]/[place]IP [place] [address] Calcofluor White Stain (04/19/2017 4:00 PM EDT) Patholo gist Method Time Signature Calcofluor Calcofluor MOLLY Stain White KIM Preparation: [facility]ORATORY Specimen Anatomical Collection Method Collection Time Receive d Time (Source) Location / / Volume Laterality Specimen from 04/19/2017 4:00 PM 04/22/20 17 8:28 bone (specimen) EDT AM EDT Resulting Agency Comment Spec In Lab Juan Miguel Bermudez MD MICROBIOLOGY - GENERAL ORDER SIXTO Performing Organization Address City/State/[place] [address] Anaerobic Culture (04/19/2017 4:00 PM EDT) Patholo Incentivyze Method Time Signature Anaerobic No anaerobic [facility] Culture organisms [facility] Specimen Anatomical Collection Method Collection Time Receive d Time (Source) Location / / Volume Laterality Specimen from BONE STRUCTURE OF 04/19/2017 4:00 PM 4:59 bone (specimen) VERTEBRA / Unknown EDT PM EDT Comment: T7-8 OSTEO Resulting Agency Comment Spec In Lab Juan Miguel Bermudez MD MICROBIOLOGY - GENERAL ORDER SIXTO Performing Organization Address City/State/ZIP [place] [address] (ABNORMAL) Bone Culture (04/19/2017 4:00 PM EDT) Component Value Ref Test Analysis Performed At [facility] gist Range Method Time Signature Bone Culture Rare Coagulase MOLLY negative [place] Staphylococcus [facility] species (A) [facility] Gram Stain Moderate White Blood Cells seen MOLLY No microorganisms seen. [facility] (A) [facility] Organism Coagulase MOLLY negative [place] Staphylococcus [facility] species (A) [facility] Specimen Anatomical Collection Method Collection Time Receive d Time (Source) Location / / Volume Laterality Specimen from BONE STRUCTURE OF 04/19/2017 4:00 PM 4:59 bone (specimen) VERTEBRA / Unknown EDT PM EDT Comment: T7-8 OSTEO Resulting Agency Comment Spec In Lab Organism Antibiotic Method Susceptibility Coagulase negative Amoxicillin + Clavulanate MICROSCAN METHOD Re sistant staphylococcus species Coagulase negative Ampicillin MICROSCAN METHOD Resistant staphylococcus species Coagulase negative Ampicillin + Sulbactam MICROSCAN METHOD Resis tant staphylococcus species Coagulase negative Cefazolin MICROSCAN METHOD Resistant staphylococcus species Coagulase negative Ceftriaxone MICROSCAN METHOD Resistant staphylococcus species Coagulase negative Ciprofloxacin MICROSCAN METHOD Sensitive staphylococcus species Coagulase negative Clindamycin MICROSCAN METHOD Resistant staphylococcus species Coagulase negative Daptomycin MICROSCAN METHOD Sensitive staphylococcus species Coagulase negative Erythromycin MICROSCAN METHOD Resistant staphylococcus species Coagulase negative Gentamicin MICROSCAN METHOD Sensitive staphylococcus species Comment: Gentamicin is not a ppropriate for [place]-therapy. Coagulase negative staphylococcus Levofloxacin MICROSCAN METH OD Sensitive species Coagulase negative staphylococcus Oxacillin MICROSCAN METH OD Resistant species Coagulase negative staphylococcus Penicillin MICROSCAN METH OD Resistant species Coagulase negative staphylococcus Rifampin MICROSCAN METH OD Sensitive species Coagulase negative staphylococcus Tetracycline MICROSCAN METH OD Sensitive species Coagulase negative staphylococcus Trimethoprim/Sulfa MICROSCAN M ETHOD Resistant species Coagulase negative staphylococcus Vancomycin MICROSCAN METH OD Sensitive species Juan Miguel Bermudez MD MICROBIOLOGY - GENERAL ORDER SIXTO Performing Organization Address City/[facility]/ZIP [place] [address] Surgical Pathology Report (04/19/2017 2:00 PM EDT) Component Value Ref Test Analysis Performed At [facility] gist Range Method Time Signature Surgical SP- ?Location: 5WST; 0503; A [facility] Report The signing pathologist has (i) examined the relevant preparation(s) for the [facility] specimen(s) and (ii) rendered or confirmed the diagnosis(es) . HOSPITAL LABORATORY . ?Surgic al Pathology DIAGNOSIS A - Bone aoft tissue, T7 vertebral body, CT-guided core biop sy: - Minute fragment of lamellar bone witrh intertrabecular fib rosis and lymphoplasmacytic inflammation and focu s of bone marrow, ?see Discussion. Electronically signed by: ??Pavan Aaron MD Verified: ??04/23/2017 ?Dermatopathologist, Bone & Soft Tissue Pathologist DISCUSSION The clinical notes were revi ewed. The sample is very small and the findings are not categorical however I b elieve there are suspicious for an infectious process/ osteomyelitis. Special stain s for microorganisms (AFB, Francheska and GMS) are negative; correltion with microbiological studies is necessary. CLINICAL INFORMATION Specimen Submitted: A - T7-8 osteo Clinical History: T7-8 osteo Clinical Diagnosis: Same SPECIMEN PROCESSING A - Labeled/Fixative: T7-8 osteo, formalin. Quantity/Size: Single, 0.2 x 0.2 x 0.1 cm. Tissue Description: Irregular fragment of soft pink-sosa bone . Sections/Processing: Blocks submitted for decalcification in EDTA: ??(1) ?. (T1) ??monika Specimen (Source) Anatomical Collection Method Collection Time Re ceived Time Location / / Volume Laterality 04/19/2017 2:00 PM EDT Juan Miguel Bermudez MD PATHOLOGY/CYTOLOGY ORDERABLE S Performing Organization Address City/State/ZIP Code Phon e Number [place] [id number] Specimen to Pathology (NON-OR) (04/19/2017 1:16 PM EDT) Specimen Anatomical Collection Method Collection Time Receive d Time (Source) Location / / Volume Laterality AP Specimen 04/19/2017 1:16 PM 7 1:16 EDT PM EDT Narrative [facility] - 04/19/2017 1:16 PM EDT Specimen requisition ordered. ??Separate Pathology report to follow Juan Miguel Bermudez MD PATHOLOGY/CYTOLOGY ORDERABLE S Performing Organization Address City/State/ZIP [place] [address] Differential, Automated (04/19/2017 6:38 AM EDT) athologist Signature Neutrophils % 57.5 % [facility] Neutr Abs (ANC) 2.81 1.70 - [facility] 6.10 [facility] x10(3)/[facility] LABORATORY Lymphocytes % 30.5 % [facility] Lymphocytes Abs 1.5 0.9 - 3.2 [facility] x10(3)/[facility] LABORATORY Monocytes % 6.3 % [facility] Monocyte Abs 0.3 0.3 - 0.9 [facility] x10(3)/[facility] LABORATORY Eosinophils % 4.9 % [facility] Eosinophils Abs 0.2 0.0 - 0.4 [facility] x10(3)/[facility] LABORATORY Basophils % 0.6 % [facility] Basophils Abs 0.0 0.0 - 0.1 [facility] x10(3)/[facility] LABORATORY Immature Gran % 0.20 % [facility] Comment: Immature granulocytes(IG's)percentage an d absolute count will include metamyelocytes, myelocytes, and promyelo cytes. Blood smears from CBCs yielding IG's will be scanned manually for concor dance. If this scan disagrees with the automated IG or if promyelocytes are not ed, a manual differential will be performed. Grace Gran Abs 0.01 0.00 - 0.04 x10(3)/[facility] Specimen Anatomical Collection Method Collection Time Receive d Time (Source) Location / / Volume Laterality Blood specimen 04/19/2017 6:38 AM 017 6:38 (specimen) EDT AM EDT Resulting Agency Comment Spec In Lab Chayo Sol Do, MD HEMATOLOGY ORDERABLES Performing Organization Address City/State/[place] [address] (ABNORMAL) Hemogram (04/19/2017 6:38 AM EDT) Analysis Performed At Patho logist Time Signature WBC 4.9 4.0 - 9.5 [facility] x[facility](3[facility] LABORATORY RBC 3.84 (L) 4.00 - [place]LLY KIM 5.21 [facility] x10(6)/[facility] LABORATORY Hemoglobin 11.8 11.7 - MOLLY KIM 15.5 gm/dL [facility] Hematocrit 35.0 (L) 35.7 - [facility] KIM 45.8 % [facility] MCV 91.1 82.6 - [facility] KIM 94.4 [facility] LABORATORY MCH 30.7 27.1 - [place] 32.0 pg [facility] MCHC 33.7 31.7 - [place] KIM 35.0 gm/dL [facility] Platelets 223 145 - 357 [facility] x10(3)/[facility] LABORATORY RDWSD 43.8 37.0 - MO[place] KIM 46.0 [facility] LABORATORY RDWCV 13.2 11.5 - [facility] KIM 14.1 % [facility] MPV 9.7 7.6 - 12.9 [facility] nRBC % Auto 0.0 % [facility] nRBC Abs Auto 0.000 0.000 - [facility] KIM 0.000 [facility] x10(3)/[facility] LABORATORY Specimen Anatomical Collection Method Collection Time Receive d Time (Source) Location / / Volume Laterality Blood specimen 04/19/2017 6:38 AM 017 6:38 (specimen) EDT AM EDT Resulting Agency Comment Spec In Lab Chayo Sol Do, MD HEMATOLOGY ORDERABLES Performing Organization Address City/State/[place] [address] (ABNORMAL) Basic Metabolic Panel (non-fasting) (04/19/2017 6:38 AM EDT) athologist Signature Glucose Lvl 88 65 - 199 [facility] mg/dL [facility] Comment: Diabetes: >=200 mg/dL plus symp toms BUN 16 8 - 18 mg/dL [facility] Creatinine 0.52 (L) 0.70 - 1.20 mg/dL [facility] Comment: Please note that the pediatric reference intervals supplied above were not validated at [facility] [place] [place]. Results from pediatri c patients should be interpreted in conjunction to the patient's age, height and muscle mass. Sodium 143 135 - 145 mmol/L [facility] Potassium 3.6 3.5 - 5.0 mmol/L [facility] Comment: Please note: ??Patients with WBC >100,00 0 may have falsely elevated Potassium levels. ??For accurate Potassium quantif ication in these patients send serum separator tube (gold top) for subsequent determinations. ??Contact the Clinical Chemistry Laboratory if there are any qu estions. Chloride 104 98 - 107 mmol/L [facility] CO2 25 22 - 31 mmol/L [facility] Anion Gap 14 5 - 15 mmol/L [facility] Calcium 8.8 8.5 - 10.5 mg/dL [facility] Estimated GFR >60 >=60 [facility] Comment: This estimated GFR (eGFR) value was calc ulated using the MDRD equation which has been validated on patients between t he ages of 18 and 70. The MDRD should not be used to assess kidney function in patients < 18 years of age or in patients with extremes of body mass, or in patients with acute kidney failure. This value should be multiplied by 1.2 f or patients. For further information please copy and past e the following links into your internet browser. http://Accent/DHnkdep http://Accent/DHMCnkf Specimen Anatomical Collection Method Collection Time Receive d Time (Source) Location / / Volume Laterality Blood specimen 04/19/2017 6:38 AM 017 6:39 (specimen) EDT AM EDT Resulting Agency Comment Spec In Lab Chayo Sol Do, MD CHEMISTRY ORDERABLES Performing Organization Address City/State/ZIP Code Phon e Number [place] [phone] HOSPITAL LAB[address]ORY Drive XR Thoracic Spine 2 views (04/18/2017 2:44 PM EDT) Anatomical Region Laterality Modality N/A Digital Radiography Specimen (Source) Anatomical Location Collection Method / Collectio n Time Received Time / Laterality Volume Impressions 04/18/2017 2:54 PM EDT Limited comparison to CT scan turning lathe tender suggests progressive destructive changes due to discitis at T7-8 with increased focal kyphosis at this level. Narrative 04/18/2017 2:54 PM EDT EXAMINATION: XR THORACIC SPINE 2 VIEWS CLINICAL HISTORY: t7-8 osteo disc TECHNIQUE: AP and lateral thoracic spine COMPARISON: CT scan dated 04/14/2017 FINDINGS: There appears to be progressive erosion of the T7 and T8 endplates due to progressive discitis. There is associate d increased focal kyphosis at this level. Remaining thoracic vertebral body heights appear stable. There is stable mild anterior wedging of the T11 vertebr al body. Procedure Note Miranda Le MD - 03/30 EXAMINATION: XR THORACIC SPINE 2 VIEWS CLINICAL HISTORY: t7-8 osteo disc TECHNIQUE: AP and lateral thoracic spine COMPARISON: CT scan dated 04/14/2017 FINDINGS: There appears to be progressive erosion of the T7 and T8 endplates due to progressive discitis. There is associate d increased focal kyphosis at this level. Remaining thoracic vertebral body heights appear stable. There is stable mild anterior wedging of the T11 vertebr al body. IMPRESSION Limited comparison to CT scan turning lathe tender sugg ests progressive destructive changes due to discitis at T7-8 with increased focal kyphosis at this level. Juan Miguel Bermudez MD IMG DX ORDERABLES MRI Lumbar Spine wwo Contrast (04/18/2017 2:23 PM EDT) Anatomical Region Laterality Modality L-spine Magnetic Resonance Specimen (Source) Anatomical Location Collection Method / Collectio n Time Received Time / Laterality Volume Impressions 04/18/2017 2:59 PM EDT No evidence of discitis osteomyelitis complex in the lumbar spine. Degenerative changes associated with sco liosis with with asymmetric appearance greater on the concave sides the curve. Bilateral pars defects L5. Comment: The following findings are so c ommon in people without low back pain that while we report their presence, the y must be interpreted with caution and in context of the clinical situation (Re jayla- Josef et al, Spine 2001). Findings: (Prevalence in patients withou t low back pain), disc degeneration (decreased T2 signal, height loss, bulge ) (91%), disc T2-signal loss (83%), disc height loss (56%), disc bulge (64%), dis c protrusion (32%), annular fissure (38%). Narrative 04/18/2017 2:59 PM EDT EXAMINATION: MRI LUMBAR SPINE WWO CONTRAST CLINICAL HISTORY: T7-8 osteo/disc, ? oth er infection TECHNIQUE: Lumbar spine MRI noncontrast followed by contrast material 11 cc gadavist COMPARISON: CT abdomen and pelvis dated 04/13/2017 FINDINGS: There is a convex left scolios is of the lumbar spine and a compensatory rightward curve at the LS j unction with asymmetric disc degenerative changes greater on the conc ave sides the curve, on the right at L2-3, L3-4 and on the left at L4-5 and L 5-S1. These degenerative changes are characterized by disc space narrowing, e ndplate proliferative and reactive changes. Vertebral bodies are maintained in height. There is also extensive facet arthropathy greater on the concave sides the curve. There is bilateral pars defects at L5 with minimal anteroli sthesis of L5 on S1, greater on the left. No aggressive marrow lesions. Conus demo nstrates normal size shape and signal intensity and terminates appropriately a t T12-L1. ??The visualized portion of the SI joints is unremarkable. There is no evidence of fluid signal wit hin the intervertebral disc spaces or at the endplates to suggest discitis osteom yelitis complex. The endplate reactive changes are observed to the areas of dis c space narrowing and proliferative change associated with scoliosis. The paraspinous soft tissues are unremar kable. There is no abdominal aortic aneurysm. No mass or abnormal enhancement post sonia olinium. T12-L1: Mild right paracentral disc prot rusion with very mild effacement of the ventral thecal sac. No stenosis. Mild bi lateral foraminal narrowing. L1-2: Facet arthropathy bilaterally. The re is narrowing of the subarticular recess bilaterally right greater than le ft. There is a mild annular bulge with mild effacement of the ventral thecal sa c. Mild right foraminal and far lateral protrusion present. Mild right and mild left foraminal narrowing present. L2-3: Facet arthropathy, right greater t he left. Narrowing of the right subarticular recess as a result on image 18 series 6. There is a moderate right and mild left foraminal narrowing due to asymmetric endplate proliferative change and disc space narrowing as well as a right-sided disc material associated with endplate proliferative c hange. L3-4: Facet arthropathy with mild efface ment of the posterior thecal sac. Minimal annular bulge. Moderate right an d mild left foraminal narrowing. L4-5: Extensive facet arthropathy with m ild overall canal stenosis. Narrowing of the right subarticular recess present. T here is moderate bilateral foraminal narrowing. L5-S1: There is similar mild effacement of the thecal sac at the level of the pars defects with some proliferative rema nge greater on the left best seen on image 32 series 6. There is no significa nt central stenosis. Moderate bilateral foraminal narrowing present. Procedure Note Jaime Lima MD - 04/18/2017Formatt ing of this note might be different from the original. EXAMINATION: MRI LUMBAR SPINE WWO CONTRA ST CLINICAL HISTORY: T7-8 osteo/disc, ? oth er infection TECHNIQUE: Lumbar spine MRI noncontrast followed by contrast material 11 cc gadavist COMPARISON: CT abdomen and pelvis dated 04/13/2017 FINDINGS: There is a convex left scolios is of the lumbar spine and a compensatory rightward curve at the LS j unction with asymmetric disc degenerative changes greater on the conc ave sides the curve, on the right at L2-3, L3-4 and on the left at L4-5 and L 5-S1. These degenerative changes are characterized by disc space narrowing, e ndplate proliferative and reactive changes. Vertebral bodies are maintained in height. There is also extensive facet arthropathy greater on the concave sides the curve. There is bilateral pars defects at L5 with minimal anteroli sthesis of L5 on S1, greater on the left. No aggressive marrow lesions. Conus demo nstrates normal size shape and signal intensity and terminates appropriately a t T12-L1. The visualized portion of the SI joints is unremarkable. There is no evidence of fluid signal wit hin the intervertebral disc spaces or at the endplates to suggest discitis osteom yelitis complex. The endplate reactive changes are observed to the areas of dis c space narrowing and proliferative change associated with scoliosis. The paraspinous soft tissues are unremar kable. There is no abdominal aortic aneurysm. No mass or abnormal enhancement post sonia olinium. T12-L1: Mild right paracentral disc prot rusion with very mild effacement of the ventral thecal sac. No stenosis. Mild bi lateral foraminal narrowing. L1-2: Facet arthropathy bilaterally. The re is narrowing of the subarticular recess bilaterally right greater than le ft. There is a mild annular bulge with mild effacement of the ventral thecal sa c. Mild right foraminal and far lateral protrusion present. Mild right and mild left foraminal narrowing present. L2-3: Facet arthropathy, right greater t he left. Narrowing of the right subarticular recess as a result on image 18 series 6. There is a moderate right and mild left foraminal narrowing due to asymmetric endplate proliferative change and disc space narrowing as well as a right-sided disc material associated with endplate proliferative c hange. L3-4: Facet arthropathy with mild efface ment of the posterior thecal sac. Minimal annular bulge. Moderate right an d mild left foraminal narrowing. L4-5: Extensive facet arthropathy with m ild overall canal stenosis. Narrowing of the right subarticular recess present. T here is moderate bilateral foraminal narrowing. L5-S1: There is similar mild effacement of the thecal sac at the level of the pars defects with some proliferative rema nge greater on the left best seen on image 32 series 6. There is no significa nt central stenosis. Moderate bilateral foraminal narrowing present. IMPRESSION No evidence of discitis osteomyelitis co mplex in the lumbar spine. Degenerative changes associated with sco liosis with with asymmetric appearance greater on the concave sides the curve. Bilateral pars defects L5. Comment: The following findings are so c ommon in people without low back pain that while we report their presence, the y must be interpreted with caution and in context of the clinical situation (Re jayla- Gabrielak et al, Spine 2001). Findings: (Prevalence in patients withou t low back pain), disc degeneration (decreased T2 signal, height loss, bulge ) (91%), disc T2-signal loss (83%), disc height loss (56%), disc bulge (64%), dis c protrusion (32%), annular fissure (38%). Juan Miguel Bermudez MD IMG MRI ORDERABLES Differential, Automated (04/18/2017 5:52 AM EDT) athologist Signature Neutrophils % 54.1 % [facility] Neutr Abs (ANC) 2.48 1.70 - [facility] 6.10 [facility] x10(3)/[facility] LABORATORY Lymphocytes % 32.0 % [facility] Lymphocytes Abs 1.5 0.9 - 3.2 [facility] x10(3)/[facility] LABORATORY Monocytes % 9.4 % [facility] Monocyte Abs 0.4 0.3 - 0.9 [facility] x10(3)/[facility] LABORATORY Eosinophils % 3.7 % [facility] LABORATORY Eosinophils Abs 0.2 0.0 - 0.4 [facility] x10(3)/[facility] LABORATORY Basophils % 0.4 % [facility] LABORAT[facility] Basophils Abs 0.0 0.0 - 0.1 [facility] x10(3)/[facility] LABORATORY Immature Gran % 0.40 % [facility] LABORATORY Comment: Immature granulocytes(IG's)percentage an d absolute count will include metamyelocytes, myelocytes, and promyelo cytes. Blood smears from CBCs yielding IG's will be scanned manually for concor dance. If this scan disagrees with the automated IG or if promyelocytes are not ed, a manual differential will be performed. Grace Gran Abs 0.02 0.00 - 0.04 x10(3)/[facility] LABORATORY Specimen Anatomical Collection Method Collection Time Receive d Time (Source) Location / / Volume Laterality Blood specimen 04/18/2017 5:52 AM 017 6:21 (specimen) EDT AM EDT Resulting Agency Comment Spec In Lab Chayo T Do HEMATOLOGY ORDERABLES Performing Organization Address City/State/ZIP [place] [address] (ABNORMAL) Hemogram (04/18/2017 5:52 AM EDT) Analysis Performed At Patho logist Time Signature WBC 4.6 4.0 - 9.5 [facility] x10(3)/[facility] LABORATORY RBC 3.89 (L) 4.00 - [facility] 5.21 [facility] x10(6)/[facility] LABORATORY Hemoglobin 12.3 11.7 - [place] 15.5 gm/dL [facility] LABORATORY Hematocrit 34.8 (L) 35.7 - [place] 45.8 % [facility] LABORATORY MCV 89.5 82.6 - [place] 94.4 [facility] LABORATORY MCH 31.6 27.1 - [facility] KIM 32.0 pg [facility] LABORATORY MCHC 35.3 (H) 31.7 - [place] 35.0 gm/dL [facility] LABORATORY Platelets 237 145 - 357 [facility] x10(3)/[facility] LABORATORY RDWSD 42.7 37.0 - [place] 46.0 [facility] LABORATORY RDWCV 13.2 11.5 - [facility] % [facility] LABORATORY MPV 9.9 7.6 - 12.9 [facility] LABORATORY nRBC % Auto 0.0 % [facility] LABORATORY nRBC Abs Auto 0.000 0.000 - [facility] 0.000 [facility] x10(3)/[facility] LABORATORY Specimen Anatomical Collection Method Collection Time Receive d Time (Source) Location / / Volume Laterality Blood specimen 04/18/2017 5:52 AM 017 6:21 (specimen) EDT AM EDT Resulting Agency Comment Spec In Lab Chayo T Do MD HEMATOLOGY ORDERABLES Performing Organization Address City/State/ZIP [place] [address] (ABNORMAL) Basic Metabolic Panel (non-fasting) (04/18/2017 5:52 AM EDT) athologist Signature Glucose Lvl 78 65 - 199 [facility] mg/dL [facility]OR[facility]ORY Comment: Diabetes: >=200 mg/dL plus symp toms BUN 15 8 - 18 mg/dL [facility] LABORATORY Creatinine 0.65 (L) 0.70 - 1.20 mg/dL [facility] LABORATORY Comment: Please note that the pediatric reference intervals supplied above were not validated at [facility] [place]. Results from pediatri c patients should be interpreted in conjunction to the patient's age, height and muscle mass. Sodium 141 135 - 145 mmol/L [facility] LABORATORY Potassium 3.7 3.5 - 5.0 mmol/L [facility] LABORATORY Comment: Please note: ??Patients with WBC >100,00 0 may have falsely elevated Potassium levels. ??For accurate Potassium quantif ication in these patients send serum separator tube (gold top) for subsequent determinations. ??Contact the Clinical Chemistry Laboratory if there are any qu estions. Chloride 102 98 - 107 mmol/L [facility] LABORATORY CO2 28 22 - 31 mmol/L [facility] LABOR[facility] Anion Gap 11 5 - 15 mmol/L [facility] LABORATORY Calcium 9.0 8.5 - 10.5 mg/dL [facility] LABORATORY Estimated GFR >60 >=60 [facility] LABORATORY Comment: This estimated GFR (eGFR) value was calc ulated using the MDRD equation which has been validated on patients between t he ages of 18 and 70. The MDRD should not be used to assess kidney function in patients < 18 years of age or in patients with extremes of body mass, or in patients with acute kidney failure. This value should be multiplied by 1.2 f or patients. For further information please copy and past e the following links into your internet browser. http://Accent/DHnkdep http://Accent/DHMCnkf Specimen Anatomical Collection Method Collection Time Receive d Time (Source) Location / / Volume Laterality Blood specimen 04/18/2017 5:52 AM 017 6:21 (specimen) EDT AM EDT Resulting Agency Comment Spec In Lab Chayo T Do CHEMISTRY ORDERABLES Performing Organization Address City/State/ZIP Code Phon e Number [place] [id number]OS[address] LAB[address] Differential, Automated (04/17/2017 6:49 PM EDT) athologist Signature Neutrophils % 59.5 % [facility] LABORATORY Neutr Abs (ANC) 2.61 1.70 - [facility] 6.10 [facility] x10(3)/[facility] LABORATORY Lymphocytes % 28.8 % [facility] LABORATORY Lymphocytes Abs 1.3 0.9 - 3.2 [facility] x10(3)/[facility] LABORATORY Monocytes % 8.7 % [facility] LABORATORY Monocyte Abs 0.4 0.3 - 0.9 [facility] x10(3)/[facility] LABORATORY Eosinophils % 2.1 % [facility] LABORATORY Eosinophils Abs 0.1 0.0 - 0.4 [facility] x10(3)/[facility] LABORATORY Basophils % 0.7 % [facility] LABORATORY Basophils Abs 0.0 0.0 - 0.1 [facility] x10(3)/[facility] LABORATORY Immature Gran % 0.20 % [facility] LABORATORY Comment: Immature granulocytes(IG's)percentage an d absolute count will include metamyelocytes, myelocytes, and promyelo cytes. Blood smears from CBCs yielding IG's will be scanned manually for concor dance. If this scan disagrees with the automated IG or if promyelocytes are not ed, a manual differential will be performed. Grace Gran Abs 0.01 0.00 - 0.04 x10(3)/[facility] LAB[facility] Specimen Anatomical Collection Method Collection Time Receive d Time (Source) Location / / Volume Laterality Blood specimen 04/17/2017 6:49 PM 017 7:06 (specimen) EDT PM EDT Resulting Agency Comment Spec In Lab Chayo T Do HEMATOLOGY ORDERABLES Performing Organization Address City/State/ZIP [place] [address] (ABNORMAL) Hemogram (04/17/2017 6:49 PM EDT) Analysis Performed At Patho logist Time Signature WBC 4.4 4.0 - 9.5 [facility] x10(3)/[facility] LABORATORY RBC 3.97 (L) 4.00 - [place] 5.21 [facility] x10(6)/[facility] LABORATORY Hemoglobin 12.2 11.7 - [facility]/dL [facility]ORATORY Hematocrit 35.2 (L) 35.7 - [facility] 45.8 % [facility] LABORATORY MCV 88.7 82.6 - [place] 94.4 [facility] LABORATORY MCH 30.7 27.1 - [facility] KIM 32.0 pg [facility]ORATORY MCHC 34.7 31.7 - [facility] 35.[facility] gm/dL [facility] LABORATORY Platelets 236 145 - 357 [facility] x10(3)/[facility] LABORATORY RDWSD 42.5 37.0 - [facility] KIM 46.0 [facility] LABORATORY RDWCV 13.1 11.5 - [facility] KIM 14.1 % [facility] LABORATORY MPV 9.8 7.6 - 12.9 [facility] LABORATORY nRBC % Auto 0.0 % [facility] LABORATORY nRBC Abs Auto 0.000 0.000 - [facility] KIM 0.000 [facility] x10(3)/[facility] LABORATORY Specimen Anatomical Collection Method Collection Time Receive d Time (Source) Location / / Volume Laterality Blood specimen 04/17/2017 6:49 PM 017 7:06 (specimen) EDT PM EDT Resulting Agency Comment Spec In Lab Chayo Sol Do, MD HEMATOLOGY ORDERABLES Performing Organization Address City/[facility]/[place]IP [place] [address] (ABNORMAL) CRP, acute inflammation (04/17/2017 6:49 PM EDT) athologist Signature CRP 64.8 (H) <=4.9 mg/L [facility] LABORATORY Comment: rechecked RG Specimen Anatomical Collection Method Collection Time Receive d Time (Source) Location / / Volume Laterality Blood specimen 04/17/2017 6:49 PM 017 7:06 (specimen) EDT PM EDT Resulting Agency Comment Spec In Lab Chayo Sol Do, MD CHEMISTRY ORDERABLES Performing Organization Address City/[facility]/[place] [facility] [place] [address] (ABNORMAL) Sedimentation rate (04/17/2017 6:49 PM EDT) athologist Signature Sed Rate 55 (H) 0 - 20 [facility] mm/hr [facility] LABORATORY Specimen Anatomical Collection Method Collection Time Receive d Time (Source) Location / / Volume Laterality Blood specimen 04/17/2017 6:49 PM 017 7:06 (specimen) EDT PM EDT Resulting Agency Comment Spec In Lab Chayo Sol Do, MD HEMATOLOGY ORDERABLES Performing Organization Address City/[facility] [place] [address] (ABNORMAL) Basic Metabolic Panel (non-fasting) (04/17/2017 6:49 PM EDT) athologist Signature Glucose Lvl 93 65 - 199 [facility] mg/dL [facility]ORATORY Comment: Diabetes: >=200 mg/dL plus symp toms BUN 14 8 - 18 mg/dL [facility] LABORATORY Creatinine 0.55 (L) 0.70 - 1.20 mg/dL [facility] LABORATORY Comment: Please note that the pediatric reference intervals supplied above were not validated at [facility] [place]. Results from pediatri c patients should be interpreted in conjunction to the patient's age, height and muscle mass. Sodium 141 135 - 145 mmol/L [facility] LABORATORY Potassium 3.7 3.5 - 5.0 mmol/L [facility] LABORATORY Comment: Please note: ??Patients with WBC >100,00 0 may have falsely elevated Potassium levels. ??For accurate Potassium quantif ication in these patients send serum separator tube (gold top) for subsequent determinations. ??Contact the Clinical Chemistry Laboratory if there are any qu estions. Chloride 101 98 - 107 mmol/L [facility]OR[facility] CO2 28 22 - 31 mmol/L [facility]OR[facility] Anion Gap 12 5 - 15 mmol/L [facility] LABORATORY Calcium 9.4 8.5 - 10.5 mg/dL [facility] LABORATORY Estimated GFR >60 >=60 [facility] LAB[facility] Comment: This estimated GFR (eGFR) value was calc ulated using the MDRD equation which has been validated on patients between t he ages of 18 and 70. The MDRD should not be used to assess kidney function in patients < 18 years of age or in patients with extremes of body mass, or in patients with acute kidney failure. This value should be multiplied by 1.2 f or patients. For further information please copy and past e the following links into your internet browser. 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 Maximum daily dose of acetaminophen from all sources not to exceed 4,000 mg., Routine acetaminophen (TYLENOL) tablet 650 mg Given 04/23/2017 3:57 PM EDT 650 mg 650 mg, Oral, 4 TIMES DAILY, First dose on Wed04/20/17 at 1300, Until Discontinued, Maximum dose of acetaminophen is 4000 mg from all sources in 24 hours., Routine Given 04/23/2017 9:00 AM EDT 650 mg Given 04/23/2017 4:53 AM EDT 650 mg enoxaparin (LOVENOX) injection 40 mg Given 04/21/2017 8:59 PM EDT 40 mg 40 mg, Subcutaneous, NIGHTLY, First dose on Wed04/17/17 at 2100, Until Discontinued, Routine Given 04/20/2017 8:57 PM EDT 40 mg Given 04/19/2017 9:38 PM EDT 40 mg fentaNYL 50 mcg/mL multi-dose injection Given 04/19/2017 3:45 PM EDT 50 mcg 25-50 mcg, Intravenous, EVERY 5 MIN PRN, Starting on Wed04/19/17 at 1420, Until Wed04/19/17 at 1558, Pain, per unit protocol, - Start dose 50 mcg (reduce dose to 25 mcg if history of sedation sensitivity). - Titration dose 25-50 mcg IV, (based on patient response) every 3 minutes PRN, to maintain procedural pain less than 2 per pain Scale. Maximum dose: 50 mcg/dose, 250 mcg/hour For use in Interventional Radiology (IR) only for procedural sedation with direct provider supervision and verbal order., Angio/IR (Intra-Procedure), Routine Given 04/19/2017 3:39 PM EDT 50 mcg Given 04/19/2017 3:34 PM EDT 50 mcg gadobutrol (GADAVIST) 1 mMol/mL injection 11 Given 2:23 PM EDT 11 mLs mL 11 mL, Intravenous, ONCE PRN, 1 dose, Starting on 04/18/17 at 1423, Until Wed04/18/17 at 1423, Per Protocol, Routine HYDROmorphone (DILAUDID) injection 0.2 m g Given 04/20/2017 10:07 PM EDT 0.2 mg 0.2 mg, Intravenous, ONCE, 1 dose, On Wed04/20/17 at 2230, Routine HYDROmorphone (DILAUDID) tablet 2 mg Given 04/23/2017 1:34 PM EDT 2 mg 2 mg, Oral, EVERY 4 HOURS PRN, Starting on Wed04/21/17 at 0906, Until Wed04/23/17 at 1938, Pain, Routine Given 04/23/2017 9:00 AM EDT 2 mg Given 04/23/2017 4:54 AM EDT 2 mg HYDROmorphone (DILAUDID) tablet 2 mg Given 04/22/2017 11:11 PM EDT 2 mg 2 mg, Oral, ONCE, 1 dose, On Wed04/22/17 at 2315, Routine HYDROmorphone (DILAUDID) tablet 2 mg Given 04/23/2017 4:00 PM EDT 2 mg 2 mg, Oral, ONCE, 1 dose, On Wed04/23/17 at 1615, Routine ibuprofen (ADVIL;MOTRIN) tablet 600 mg Given 04/20/2017 10:52 AM EDT 600 mg 600 mg, Oral, EVERY 8 HOURS PRN, Starting on 04/17/17 at 2136, Until Wed04/20/17 at 1632, Pain, Administer orally with milk or food to minimize GI irritation. Maximum dose of 3200 mg from all sources in 24 hours, Routine Given 04/20/2017 1:41 AM EDT 600 mg Given 04/19/2017 5:10 PM EDT 600 mg ibuprofen (ADVIL;MOTRIN) tablet 600 mg Given 04/23/2017 1:34 PM EDT 600 mg 600 mg, Oral, 4 TIMES DAILY, First dose on Wed04/20/17 at 1300, Until Discontinued, Administer orally with milk or food to minimize GI irritation. Maximum dose of 3200 mg from all sources in 24 hours, Routine Given 04/23/2017 7:30 AM EDT 600 mg Given 04/23/2017 12:46 AM EDT 600 mg levoFLOXacin (LEVAQUIN) tablet 750 mg Given 04/23/2017 3:00 PM EDT 750 mg 750 mg, Oral, EVERY MORNING, First dose on 04/23/17 at 1430, Until Discontinued, Routine lidocaine (XYLOCAINE) 10 mg/mL (1 %) injection Given 0 04/19/2017 3:25 PM EDT 10 mg 10 mg 10 mg, Subcutaneous, ONCE, 1 dose, On 04/19/17 at 1445, For use in Interventional Radiology (IR) only for procedure with direct provider supervision and verbal order., Angio/IR (Intra-Procedure), Routine methyl salicylate-menthol (BENGAY) 15-10 % cream Given 04/17/2017 8:47 PM EDT Topical (Top), 3 TIMES DAILY, First dose on 04/17/17 at 2000, Until Discontinued, To affected mid-back pain site. Thank you. midazolam (PF) (VERSED) 1 mg/mL multi-dose Given 04/19/2017 3:45 PM EDT 1 mg injection 0.5-1 mg 0.5-1 mg, Intravenous, EVERY 3 MIN PRN, Starting on Wed04/19/17 at 1420, Until Wed04/19/17 at 1558, Sleep, - Start dose; 1 mg (Reduce dose to 0.5 mg if history of sedation sensitivity). - Titration dose: 0.5 mg - 1 mg (based on patient response) every 3 minutes PRN to obtain RASS score of -3. Maximum dose: 1 mg per dose, 5 mg/hour. For use in Interventional Radiology (IR) only for procedural sedation with direct provider supervision and verbal order., Angio/IR (Intra-Procedure), Routine Given 04/19/2017 3:34 PM EDT 1 mg Given 04/19/2017 3:27 PM EDT 1 mg ondansetron (ZOFRAN) injection 4 mg 4 mg, Intravenous, EVERY 8 HOURS PRN, St arting on 04/17/17 at 1823, Until Wed04/23/17 at 1938, Nausea, May repeat time s one in 30 minutes if ineffective. If multiple antiemetics are ordered, give ondansetron fir st. ondansetron (ZOFRAN) tablet 4 mg 4 mg, Oral, EVERY 8 HOURS PRN, Starting on 04/17/17 at 1823, Until Wed04/23/17 at 1938, Nausea, Vomiting, If multiple antiemetics are ordered, use ondansetron first. PO Preferred. If patient unable to take PO, may give IV if ordered. May repeat times one in 45 minutes if ineffe ctive. If unable to take PO, may give IV., Routine oxyCODONE (ROXICODONE) immediate release Given 04/19/2017 5:50 A M EDT 10 mg tablet 10 mg 10 mg, Oral, EVERY 6 HOURS PRN, Starting on 04/17/17 at 2145, Until Wed04/19/17 at 0747, Pain, If ibuprofen ineffective, Routine Given 04/18/2017 11:33 PM EDT 10 mg Given 04/18/2017 5:24 PM EDT 10 mg oxyCODONE (ROXICODONE) immediate release Given 04/21/2017 8:08 A M EDT 10 mg tablet 10 mg 10 mg, Oral, EVERY 4 HOURS PRN, Starting on Wed04/19/17 at 0800, Until Wed04/21/17 at 0906, Pain, If ibuprofen ineffective, Routine Given 04/21/2017 3:15 AM EDT 10 mg Given 04/20/2017 11:18 PM EDT 10 mg oxyCODONE (ROXICODONE) immediate release tablet Given 04/17/2017 6:39 PM EDT 5 mg 5 mg 5 mg, Oral, EVERY 4 HOURS PRN, Starting on Wed04/17/17 at 1823, Until Wed04/17/17 at 2137, Pain, Routine pantoprazole (PROTONIX) tablet 40 mg Given 04/23/2017 9:00 AM EDT 40 mg 40 mg, Oral, DAILY, First dose on Wed04/20/17 at 1115, Until Discontinued, DO NOT CRUSH OR OPEN, Routine Given 04/22/2017 8:40 AM EDT 40 mg Given 04/21/2017 8:08 AM EDT 40 mg pregabalin (LYRICA) capsule 50 mg Given 04/23/2017 3:57 PM EDT 50 mg 50 mg, Oral, 3 TIMES DAILY, First dose on Wed04/21/17 at 0930, Until Discontinued, Routine Given 04/23/2017 10:33 AM EDT 50 mg Given 04/22/2017 8:57 PM EDT 50 mg prochlorperazine (COMPAZINE) injection 1 0 mg 10 mg, Intravenous, EVERY 6 HOURS PRN, S tarting on 04/17/17 at 1823, Until Wed04/23/17 at 1938, Nausea, Nausea/Vomiting , If multiple antiemetics are ordered, use ondansetron first. If ondansetron in effective use prochlorperazine. , Routine prochlorperazine (COMPAZINE) tablet 10 m g 10 mg, Oral, EVERY 6 HOURS PRN, Starting on 04/17/17 at 1823, Until Wed04/23/17 at 1938, Nausea, Nausea/Vomiting, If multiple antie metics are ordered, use ondansetron first. If ondansetron ineffective use proc hlorperazine. PO Preferred. If patient unable to take PO, may give IV i f ordered., Routine rifAMPin (RIFADIN) capsule 300 mg Given 04/23/2017 3:29 PM EDT 300 mg 300 mg, Oral, 2 TIMES DAILY, First dose on Wed04/23/17 at 1430, Until Discontinued, Routine senna-docusate (PERICOLACE) 8.6-50 mg per Given 2016 9:00 AM EDT 2 tablets tablet 2 tablet 2 tablet, Oral, 2 TIMES DAILY, First dose on 04/17/17 at 2100, Until Discontinued, Routine Given 04/22/2017 8:40 AM EDT 2 tablets Given 04/18/2017 8:04 AM EDT 2 tablets sodium chloride 0.9 % flush 5 mL Given 04/23/2017 10:35 AM EDT 5 mLs 5 mL, Intravenous, 2 TIMES DAILY, First dose on 04/17/17 at 2100, Until Discontinued, Routine Given 04/22/2017 8:58 PM EDT 5 mLs Given 04/22/2017 8:42 AM EDT 5 mLs vancomycin (VANCOCIN) 1,750 mg in Given 04/23/2017 6:20 AM E DT 1,750 mg 162.9 mL/hr sodium chloride 0.9% 285 mL 1,750 mg (1.75 g), Intravenous, EVERY 12 HOURS, First dose on Wed04/23/17 at 0600, Until Discontinued, Administer over 105 Minutes, This medication may have an associated drug lab level. Please check for lab orders, Indication for (Active or Suspected): Bacteremia/Sepsis vancomycin (VANCOCIN) 2,500 mg in Given 04/22/2017 6:32 PM E DT 2,500 mg 183.3 mL/hr sodium chloride 0.9% 550 mL 2,500 mg (2.5 g), Intravenous, ONCE, 1 dose, On Juanis 04/22/17 at 1800, Administer over 180 Minutes, Maximum infusion rate is 1 gram/hour. If flushing of the face, neck, upper body, arms, and/or back occurs decrease infusion rate by 50% to reduce the severity of symptoms. This medication may have an associated drug lab level. Please see MAR for scheduled level. Warning Vesicant/Irritant Medication , Indication for (Active or Suspected): Bone/Joint documented in this encounter Active and Recently Administered Medications Times are shown in EDT. Scheduled Medication Order 04/21/2017 04/22/2017 04/23/2017 acetaminophen (TYLENOL) tablet 650 mg 0300 (Not Given - Provider: Sparkle Munguia RN - Reason: Patient/family refused)0809 (Given - Provider: France Mccauley RN)1419 (Given - Provider: France Mccauley RN)2058 (Given - Provider: Kathryn Moseley RN) 0450 (Given - Provider: Kathryn Moseley RN )0840 (Given - Provider: Bailey Petit RN)1550 (Given - Provider: Bailey Petit RN)205 (Given - Provider: Steffi Myers RN) 0453 (Given - Provider: Steffi Myers, NICOLAS)0900 (Given - Provider: Molly Dale, NICOLAS)155 (Given - Provider: Molly Dale RN) 650 mg, Oral, 4 TIMES DAILY, First dose on Wed04/20/17 at 1300, Until Discontinued, Maximum dose of acetaminophen is 4000 mg from all sources in 24 hours., Routine enoxaparin (LOVENOX) injection 40 mg 2058 (Given - Provider: Kathryn Moseley RN) 2056 (Not Given - Provider: Steffi Myers RN - Reason: Patient/family refused) 40 mg, Subcutaneous, NIGHTLY, First dose on Wed04/17/17 at 2100, Until Discontinued, Routine HYDROmorphone (DILAUDID) tablet 2 mg (COMPLETED) 2311 (Given - Provider: Steffi Myers RN) 2 mg, Oral, ONCE, 1 dose, Juanis 04/22/17 at 2315, Routine HYDROmorphone (DILAUDID) tablet 2 mg (COMPLETED) 1600 (Given - Provider: Molly Dale RN) 2 mg, Oral, ONCE, 1 dose, On Wed04/23/17 at 1615, Routine ibuprofen (ADVIL;MOTRIN) tablet 600 mg 0315 (Given - P rovider: Sparkle Munguia RN)0809 (Given - Provider: France Mccauley RN)1308 (Given - Provider: France Mccauley RN)1830 (Given - Provider: France Mccauley RN) 0019 (Given - Provider: Kathryn Moseley RN)0130 (Canceled Entry - Provider: Kathryn Moseley RN - Reason: Contraindicated)0614 (Given - Provider: Kathryn Moseley RN)0730 (Canceled Entry - Provider: Kathryn Moseley RN - Reason: Contraindicated) 0046 (Given - Provider: Steffi Myers RN)0730 (Given - Provider: Molly Dale RN)1334 (Given - Provider: Molly Dale RN) 600 mg, Oral, 4 TIMES DAILY, First dose on Wed04/20/17 at 1300, Until Discontinued, Administer orally with milk or food to minimize GI irritation. Maximum dose of 3200 mg from all sources in 24 hours, Routine 1319 (Given - Provider: Bailey Petit RN)1832 (Given - Provider: Bailey Petit RN) levoFLOXacin (LEVAQUIN) tablet 750 mg 1500 (Given - Provider: Molly Dale RN) 750 mg, Oral, EVERY MORNING, First dose on Wed04/23/17 at 1430, Until Discontinued, Routine methyl salicylate-menthol (BENGAY) 15-10 % cream 0900 (Not Given - Provider: France Mccauley RN - Reason: Patient/family refused)1500 (Not Given - Provider: France Mccauley RN - Reason: Patient/family refused)2100 (Not Given - Provider: Kathryn Moseley RN - Reason: Patient/family refused) 0841 (Not Given - Provider: Bailey Petit RN - Reason: Patient/family refused)1500 (Not Given - Provider: Bailey Petit RN - Reason: Patient/family refused) 0900 (Not Given - Provider: Molly Dale RN - Reason: Patient/family refused)1500 (Not Given - Provider: Molly Dale RN - Reason: Patient/family refused) Topical (Top), 3 TIMES DAILY, First dose on Wed04/17/17 at 2000, To affected mid-back pain site. Thank you. 2057 (Not Given - Provi hebert: Steffi Myers RN - Reason: Patient/family refused) pantoprazole (PROTONIX) tablet 40 mg 0808 (Given - Provider: France Mccauley RN) 0840 (Given - Provider: Bailey Petit, NICOLAS) 0900 (Given - Provider: Molly Dale RN) 40 mg, Oral, DAILY, First dose on Wed at 1115, Until Discontinued, DO NOT CRUSH OR OPEN, Routine pregabalin (LYRICA) capsule 50 mg 1001 (Given - Provid er: France Mccauley RN)1419 (Given - Provider: France Mccauley RN)2058 (Given - Provider: Kathryn Moseley RN) 0840 (Given - Provider: Bailey Petit, NICOLAS)1628 (Given - Provider: Bailey Petit, NICOLAS)2056 (Given - Provider: Steffi Myers RN) 1033 (Given - Provider: Molly Dale RN)1557 (Given - Provider: Molly Dale RN) 50 mg, Oral, 3 TIMES DAILY, First dose o n 04/21/17 at 0930, Until Discontinued, Routine rifAMPin (RIFADIN) capsule 300 mg 1529 (Given - Provider: Molly Dale RN) 300 mg, Oral, 2 TIMES DAILY, First dose on Wed04/23/17 at 1430, Until Discontinued, Routine senna-docusate (PERICOLACE) 8.6-50 mg per tablet 2 tab let 0900 (Not Given - Provider: France Mccauley RN - Reason: Patient/family refused)2058 (Not Given - Provider: Kathryn Moseley, NICOLAS - Reason: Patient/family refused) 0840 (Given - Provider: Bailey Petit, NICOLAS)2099 (Not Given - Provider: Steffi Myers RN - Reason: Patient/family refused) 0900 (Given - Provider: Molly Dale RN) 2 tablet, Oral, 2 TIMES DAILY, First dos e on 04/17/17 at 2100, Until Discontinued, Routine sodium chloride 0.9 % flush 5 mL 0810 (Given - Provide r: France Mccauley RN)2099 (Given - Provider: Kathryn Moseley RN) 0842 (Given - Provider: Bailey Petit RN)2057 (Given - Provider: Steffi Myers RN) 1035 (Given - Provider: Molly Dale RN) 5 mL, Intravenous, 2 TIMES DAILY, First dose on 04/17/17 at 2100, Until Discontinued, Routine vancomycin (VANCOCIN) 1,750 mg in sodium chloride 0.9% 285 mL (C ANCELED) 0620 (Given - Provider: Steffi Myers RN) 1,750 mg (1.75 g), Intravenous, EVERY 12 HOURS, First dose on Wed04/23/17 at 0600, Until Discontinued, Administer over 105 Minutes, This medication may have an associated drug lab level. Please check fo r lab orders, Indication for (Active or Suspected): Bacteremia/S epsis vancomycin (VANCOCIN) 2,500 mg in sodium chloride 0.9% 550 m L (COMPLETED) 183 (Given - Provider: Bailey Petit RN) 2,500 mg (2.5 g), Intravenous, ONCE, 1 d ose, Juanis 04/22/17 at 1800, Administer over 180 Minutes, Maximum infusion rate is 1 gram/hour. If flushing of the face, neck, upper body, arms, and/or back occurs d ecrease infusion rate by 50% to reduce t he severity of symptoms. This medication may have an associated drug lab level. Please see MAR for scheduled level. Warning Vesicant/Irritant Medication , Indication for (Active or Suspected): Bone/Joint PRN Medication Order 04/21/2017 04/22/2017 04/23/2017 acetaminophen (TYLENOL) tablet 650 mg 650 mg, Oral, EVERY 6 HOURS PRN, Startin g 04/17/17 at 1823, Until Wed04/23/17 at 1938, Pain, Fever, Administer for temperature greater than or equal to 38.2 degrees celsius. Maximum daily dose of mala taminophen from all sources not to exceed 4,000 mg., Routine bisacodyl (DULCOLAX) suppository 10 mg 10 mg, Rectal, DAILY PRN, Starting Sat at 1823, Until Wed04/23/17 at 1938, Constipation, Administer if needed per patient's routine or if no bowel movement within 48 hours to achieve: 1) One bow el movement at least every 48 hours, AND 2) Without straining. If multiple bowel medications ordered, consider adding if docusate or milk of magnesia not sufficient., Routine HYDROmorphone (DILAUDID) tablet 2 mg 1001 (Given - Pro vider: France Mccauley RN)1419 (Given - Provider: France Mccauley RN)1829 (Given - Provider: France Mccauley RN)2245 (Given - Provider: Kathryn Moseley RN) 0450 (Given - Provider: Kathryn Moseley RN)0850 (Given - Provider: Bailey Petit, NICOLAS)1319 (Given - Provider: Bailey Petit, NICOLAS)1744 (Given - Provider: Bailey Petit, NICOLAS)2141 (Given - Provider: Steffi Myers RN) 0454 (Given - Provider: Steffi Myers RN)0900 (Given - Provider: Molly Dale, NICOLAS)1334 (Given - Provider: Molly Dale RN) 2 mg, Oral, EVERY 4 HOURS PRN, Starting 04/21/17 at 0906, Until Wed04/23/17 at 1938, Pain, Routine lidocaine (XYLOCAINE) 10 mg/mL (1 %) injection 3 mg 3 mg (0.3 mL), Subcutaneous, ONCE PRN, 1 dose, Starting 04/17/17 at 1823, Until Wed04/23/17 at 1938, for discomfort with PIV insertion, Routine ondansetron (ZOFRAN) injection 4 mg(Linked Group 1) 4 mg, Intravenous, EVERY 8 HOURS PRN, St arting 04/17/17 at 1823, Until Wed04/23/17 at 1938, Nausea, May repeat times one in 30 minutes if ineffective. If multiple antiemetics are ordered, give ondansetron first. ondansetron (ZOFRAN) tablet 4 mg(Linked Group 1) 4 mg, Oral, EVERY 8 HOURS PRN, Starting 04/17/17 at 1823, Until Wed04/23/17 at 1938, Nausea, Vomiting, If multiple antiemetics are ordered, use ondansetron first. PO Preferred. If patient unable to take PO, may give IV if ordered. May repeat times one in 45 minutes if ineffective. If unable to take PO, may give IV., Routine oxyCODONE (ROXICODONE) immediate release tablet 10 mg (CANCELED) 0315 (Given - Provider: Sparkle Munguia RN)0808 (Given - Provider: France Mccauley RN) 10 mg, Oral, EVERY 4 HOURS PRN, Starting 04/19/17 at 0800, Until Wed04/21/17 at 0906, Pain, If ibuprofen ineffective, Routine prochlorperazine (COMPAZINE) injection 10 mg(Linked Group 2) 10 mg, Intravenous, EVERY 6 HOURS PRN, S tarting 04/17/17 at 1823, Until Wed04/23/17 at 1938, Nausea, Nausea/Vomiting, If multiple antiemetics are ordered, use ondansetron first. If ondansetron ineffective use prochlorperazine. , Routine prochlorperazine (COMPAZINE) tablet 10 mg(Linked Group 2) 10 mg, Oral, EVERY 6 HOURS PRN, Starting 04/17/17 at 1823, Until Wed04/23/17 at 1938, Nausea, Nausea/Vomiting, If multiple antiemetics are ordered, use ondansetron first. If ondansetron ineffectiv e use prochlorperazine. PO Preferred. If patient unable to take PO, may give IV if ordered., Routine sodium chloride 0.9 % flush 5-20 mL 5-20 mL, Intravenous, EVERY 1 MIN PRN, S tarting 04/17/17 at 1823, Until 04/23/17 at 1938, flush, Flush pertains to all indwelling lines. Flush per protocol found in the job aid using the link provided on this medication record., Routine Linked Groups Order Group 1: ondansetron (ZOFRAN) tablet 4 mgJump to med 4 mg, Oral, EVERY 8 HOURS PRN, Starting 04/17/17 at 1823, Until Wed04/23/17 at 1938, Nausea, Vomiting
If multiple antiemetics are ordered, use ondansetron first. PO Preferred. If patient unable to take PO, may give I V if ordered. May repeat times one in 45 minutes if ineffective. If unable to take PO, may give IV.
Routine Or ondansetron (ZOFRAN) injection 4 mgJump to med 4 mg, Intravenous, EVERY 8 HOURS PRN, St arting 04/17/17 at 1823, Until 04/23/17 at 1938, Nausea
May repeat times one in 30 minutes if ineffective. If multiple antiemetics are ordered, give ondansetron first.
Group 2: prochlorperazine (COMPAZINE) tablet 10 mgJump to med 10 mg, Oral, EVERY 6 HOURS PRN, Starting 04/17/17 at 1823, Until Wed04/23/17 at 1938, Nausea, Nausea/Vomiting
If multiple antiemetics are ordered, use ondansetron first. If ondansetron in effective use prochlorperazine. &nbsp ; PO Preferred. If patient unable to take PO, may give IV if ordered.
Routine Or prochlorperazine (COMPAZINE) injection 10 mgJump to med 10 mg, Intravenous, EVERY 6 HOURS PRN, S tarting 04/17/17 at 1823, Until 04/23/17 at 1938, Nausea, Nausea/Vomiting
If multiple antiemetics are ordered, use ondansetron first. If ondansetron ineffective use prochlorperazine.
Routine documented in this encounter Care Teams Bacteriologist Soil Relationship Specialty Start Date End Date Augustus Martin MD PCP - General 06/08/[address] [place] [id number] documented as of this encounter
--- OUTSIDE RECORDS SUMMARY | 2022-06-12 02:25 | XMS_ITS | Clinical Summary ---
:1965 Author Organization [facility] [place] [address] Care Team Providers Name Role Phone Augustus Martin MD Primary Care Provider Allergies No known active allergies Medications Medication Sig Dispensed Refills Start Date End Date Status HYDROmorphone Take 1 tablet by 20 tablet 0 04/23/2017 Active (DILAUDID) 2 mg Tablet mouth every 4 hours as needed for Pain. senna-docusate Take 2 tablets 60 tablet 11 04/23/2017 Active (PERICOLACE) 8.6-50 mg by mouth 2 times Tablet daily. ibuprofen Take 1 tablet by 30 tablet 12 04/23/2017 Ac tive (ADVIL;MOTRIN) 600 mg mouth 4 times Tablet daily. rifAMPin (RIFADIN) 300 Take 1 capsule 56 capsule 0 04/23/2017 Active mg Capsule by mouth 2 times daily. 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 04/18/2017 Back pain, acute on chronic 04/17/2017 Family History Medical History Relation Comments Ovarian Cancer Mother Relation Status Comments Mother Social History Tobacco Use Types Packs/Day Years Used Date Current Every Day Smoker Cigarettes 0.5 10 Smokeless Tobacco: Never Used Alcohol Use Standard Drinks/Week Comments No 0 (1 standard drink = 0.6 oz pure alcoho l) Sex Assigned at Date Recorded Not on file Last Filed Vital Signs Vital Sign Reading [...] Mass Index 39.94 04/17/2017 7:45 PM EDT Plan of Treatment Health Maintenance Due Date Last Done Comments Covid-19 Vaccine (#1) 1969 Pneumococcal Vaccine: At-Risk 5-64yrs (1 - PCV) 1970 Tdap adult 1983 Tetanus vaccine 1983 HPV test 1994 PAP Smear 1994 Breast Cancer Share Decision Needed 2004 Colonoscopy 2009 Breast Cancer screening 2014 Zoster vaccine (1 of 2) 2014 Advance Directive 2019 Influenza (Flu) vaccine (1 of 1 - Influenza standard 07/30/2022 series) HIV screen Completed 04/20/2017 Hepatitis C Screening Completed 04/20/2017 Insurance Payer Benefit Plan / Subscriber ID Effective Dates Phone Addre ss Type Group [place] [id number] 2021-Prese [phone] [address] [facility] [id number] Advance Directives Latest Code Status on File Code Status Date Activated Date Inactivated Comments Full Code 04/19/2017 2:20 PM 04/23/2017 7:38 PM Does patient have capacity to make decision: Yes Full Code 04/17/2017 5:28 PM 04/19/2017 2:20 PM Does patient have capacity to make decision: Yes Care Teams Sales Officer Relationship Specialty Start Date End Date Augustus Martin MD PCP - General 06/08/[address] [place] [id number]
[2022-06-12] MEDS: Albuterol HFA 18 GM 200 PUFF INH IH (16:22)
[2022-06-12] MEDS: Inhaler, Assist Device 1 EACH MC (16:22)
--- NOTE | 2022-06-15 08:52 | W.PFT ---
Date of service: 06/12/22 Time of Service: 15:07 Pulmonary Function Test Result Requesting Provider Jaime Bangura Indications: COPD Interpretation Spirometry: There is moderate airflow limitation. There technically no significant bronchodilator response, but FEV1% did increase by 13% (but only 160cc). Lung Volumes: Normal lung volumes. Diffusion Capacity: Normal diffusion. Airway Pressure: Normal airways resistance. Impression Moderate airflow obstruction with boderline positive bronchodilator response and normal diffusion. In the correct clinical context this could represent severe, uncontrolled asthma or COPD with chronic bronchitis. Clinical Correlation therefore is recommended.
== END 2022-06-12 02:10 | disposition home or self-care (01) ==
LOC: RT 02:09
PROVIDERS: PCP Family Medicine; Visit Provider Family Medicine
DX: J44.9 Chronic obstructive pulmonary disease, unspecified (principal); F17.210 Nicotine dependence, cigarettes, uncomplicated; R94.2 Abnormal results of pulmonary function studies; R06.09 Other forms of dyspnea; Z86.16 Personal history of COVID-19
CPT/HCPCS: 94060; 94726; 94729

== ENCOUNTER 2022-11-08 08:25 | Emergency (ER) | payer MEDICAID, SELFPAY ==
[2022-11-08] VITALS (12 sets, daily range): BP systolic 140–177; BP diastolic 88–116; PULSE 79–95; RESP 20; TEMP 36.5–38.3; O2SAT 81–97
--- NOTE | 2022-11-08 08:45 | DI.CT_ITS ---
Exam(s) CT ABDOMEN PELVIS W EXAM: CT ABDOMEN PELVIS W CLINICAL HISTORY: right flank pain with radiation to groin TECHNIQUE: Imaging Protocol: Axial computed tomography images with coronal and sagittal reformatted images were created and reviewed CONTRAST MATERIAL: Intravenous: Omnipaque 350 Contrast volume:100 mL Oral: No COMPARISON: CT CT CHEST PE CTA from 12/16/2021 FINDINGS: ABDOMEN: Lung Bases: Mild coronary artery calcification is present. Liver: Normal density. No measurable mass. Portal, Superior Mesenteric, and Splenic Veins: Unremarkable. Gallbladder and Biliary Tract: No radiodense calculus or dilation. Pancreas: Normal density, no abnormal calcifications or inflammatory process. Spleen: Normal. Adrenals: No masses seen. Kidneys: Normal size, contour and axis. There is a 7 mm stone in the distal right ureter just proxima l to the UVJ causing moderately severe hydronephrosis. No masses seen. Abdominal Aorta: Abdominal portion non-dilated. Atherosclerosis is present. Bowel: No obstruction or bowel wall thickening. No evidence of appendicitis. Peritoneal Cavity: No ascites, collection or mesenteric inflammatory response. No free air. Lymph Nodes: Within normal limits. Bones: Within normal limits for the patient's age. Soft Tissues: Unremarkable. PELVIS: Bladder: The urinary bladder is not well distended but grossly unremarkable. Reproductive Organs: Status post hysterectomy. Lymph Nodes: Within normal limits. Bones: Within normal limits for the patient's age. IMPRESSION: 7 mm distal right ureteral stone causing moderately severe right hydronephrosis. RADIATION DOSE DELIVERED: 1,470.93mGy.cm Total DLP DATA REPOSITORY: All CT scans at this facility are submitted to the National Radiology Data Registry (NRDR) Dose Index Registry (DIR) with the [employer] ([employer]). RADIATION OPTIMIZATION: All CT scans at this facility use at least one of these dose optimization te chniques: automated exposure control; mA and/or kV adjustment per patient size (includes targeted exa ms where dose is matched to clinical indication); or iterative reconstruction.
[2022-11-08 08:58] LABS: Abs Immature Grans 0.01 10^3/uL (0.0-0.06); Absolute Basophil Count 0.03 10^3/uL (0.0-0.2); Absolute Eosinophil Count 0.18 10^3/uL (0.0-0.7); Absolute Lymphocyte Count 0.71 10^3/uL (1.2-3.4); Absolute Monocyte Count 0.35 10^3/uL (0.1-0.8); Absolute Neutrophil Count 3.06 10^3/uL (1.2-6.7); Basophils % 0.7; Eosinophils % 4.1; HCT 39.3 % (36.0-46.0); Immature Grans % 0.2; Lymphocytes % 16.4; MCH 30.9 pg (27.0-33.0); MCHC 33.1 % (32.0-36.0); MCV 93 fL (80-95); Monocytes % 8.1; Neutrophils % 70.5; Platelet Count 176 10^3/uL (130-400); RBC 4.21 10^6/uL (3.93-5.22); RDW 13.1 % (11.7-14.6); RDW-SD 44.7 fL; WBC 4.34 10^3/uL (4.4-10.8)
[2022-11-08] MEDS: Ondansetron 4 MG/2 ML VIAL IVP (09:10)
[2022-11-08 09:20] LABS: ALT 22 U/L (14-59); AST 18 U/L (15-37); Albumin 3.4 g/dL (3.4-5.0); Alkaline Phosphatase 87 U/L (46-116); Anion Gap 7.4 mmol/L (3-11); BUN 13 mg/dL (7-18); Bilirubin, Total 0.6 mg/dL (0.2-1.0); CO2 29.6 mmol/L (21.0-32.0); CREATININE 0.9 mg/dL (0.55-1.02); Calcium 8.7 mg/dL (8.5-10.1); Chloride 102 mmol/L (98-107); Estimated GFR 74.57 (mL/min/1.73m2); Glucose 111 mg/dL (74-106); Lipase 39 U/L (73-393); Potassium 3.8 mmol/L (3.5-5.1); Sodium 139 mmol/L (136-145); Total Protein 7.4 g/dL (6.4-8.2)
[2022-11-08] MEDS: Normal Saline 500 ML IV ×2 (09:25→10:54)
--- NOTE | 2022-11-08 09:39 | DI.VRAD_ITS ---
PROCEDURE INFORMATION: Exam: CT Abdomen And Pelvis With Contrast Exam date and time: 11/08/2022 9:15 AM Age: 56 years old Clinical indication: Other: Right flank pain with radiation to groin TECHNIQUE: Imaging protocol: Computed tomography of the abdomen and pelvis with contrast. Radiation optimization: All CT scans at this facility use at least one of these dose optimization techniques: automated exposure control; mA and/or kV adjustment per patient size (includes targeted exams where dose is matched to clinical indication); or iterative reconstruction. Contrast material: OMNIPAQUE 350; Contrast volume: 100 ml; Contrast route: INTRAVENOUS (IV); COMPARISON: CT CHEST PE CTA 12/16/2021 11:32 PM FINDINGS: Liver: Normal. No mass. Gallbladder and bile ducts: Normal. No calcified stones. No ductal dilation. Pancreas: Normal. No ductal dilation. Spleen: Normal. No splenomegaly. Adrenal glands: Normal. No mass. Kidneys and ureters: There is a 6 mm stone in the distal right ureter resulting in moderate right-sided hydronephrosis. The left kidney and ureter are unremarkable. There is some periureteral fat stranding, particularly about the distal ureter on the right. Stomach and bowel: Unremarkable. No obstruction. No mucosal thickening. Appendix: No evidence of appendicitis. Intraperitoneal space: Unremarkable. No free air. No significant fluid collection. Vasculature: Unremarkable. No abdominal aortic aneurysm. Lymph nodes: Unremarkable. No enlarged lymph nodes. Urinary bladder: Unremarkable as visualized. Reproductive: The uterus is surgically absent. The ovaries are not discretely identified and may be absent as well. Bones/joints: No aggressive appearing bony lesions. Scattered degenerative changes throughout the lumbar spine. Soft tissues: Unremarkable. IMPRESSION: 6 mm stone in the distal right ureter resulting in mild right-sided hydronephrosis. Given the amount of periureteral fat stranding, particular about the distal ureter, a superimposed infectious process cannot be excluded. Correlate clinically. Dictated and Authenticated by: Cj Anaya MD. Ordering:GAL Lal MD
[2022-11-08] MEDS: Omnipaque 350 MG/ML 100 ML BTL IJ ×2 (09:45→09:47)
[2022-11-08] MEDS: Normal Saline - Diluent 50 ML VIAL IV (09:46)
[2022-11-08] MEDS: Ketorolac 15 MG/ML VIAL IVP (10:24)
[2022-11-08] MEDS: Metoclopramide 10 MG/2 ML VIAL IVP (10:26)
[2022-11-08 12:20] LABS: Bilirubin Negative (Negative); Blood Moderate (Negative); Clarity Sl Cloudy (Clear); Glucose Negative (Negative); Ketones Negative (Negative); Leukocyte Esterase Trace (Negative); Nitrite Positive (Negative); Urobilinogen 0.2 EU/dL (Up TO 0.2)
[2022-11-08 12:44] LABS: Bacteria Many HPF (Negative); Epithelial Cells Rare HPF (Negative); WBC 20-50 HPF (0-5)
[2022-11-08 12:45] LABS: C & S Indicated? Yes; Crystals Negative HPF (Negative); Mucus Negative (Negative)
[2022-11-08 13:59] LABS: Lactate 1.8 mmol/L (0.6-1.4)
[2022-11-08] MEDS: cefTRIAXone 1 GM/50 ML BAG IVPB (14:36)
--- NOTE | 2022-11-08 16:10 | W.ED.GENAD ---
Discharge Plan Disposition Patient Disposition: Transfer-Acute Inpatient Care Specific Acute Inpt Facility: [facility] Condition: Serious Discharge Details Clinical Impression: Kidney stone, Urinary tract infection Primary Care Provider: Jaime Bangura ED Provider: Hali Mancia Home Meds and New Rx's Prescriptions: Continued budesonide-formoterol [Symbicort] 160-4.5 mcg/actuation HFA aerosol inhaler 2 puff inhalation BID buprenorphine-naloxone [Suboxone] 8-2 mg Film 1 film sublingual DAILY buprenorphine-naloxone [Suboxone] 12-3 mg Film 1 film sublingual DAILY ascorbic acid (vitamin C) [Vitamin C] 500 mg Tablet 1,000 mg PO BID Qty: 0 0RF cholecalciferol (vitamin D3) 25 mcg (1,000 unit) Tablet 2,000 units PO DAILY Qty: 0 0RF Combivent Respimat 20-100 mcg/actuation Mist 1 puff inhalation QID Qty: 1 0RF Discharge Data Discharge Date/Time-TO BE ENTERED AT DEPARTURE: 11/08/22 17:14 Medical Decision Making This 56-year-old female presenting with right flank pain in into right groin with concern for fall kidney stone versus appendicitis Will order CT abdomen and pelvis and diagnostic Patient does not have leukocytosis, she has a obstructive stone on the right with hydronephrosis and a urinalysis that is concerning for infection Remainder of her labs are within normal limits We do not have urology available to us, therefore [facility] was called, and check approximately 2 hours for return phone call, however Dr. Manriquez has accepted patient to the emergency department for likely stent placement, she will remain n.p.o. She does have COPD and her oxygen dipped down to 88%, she was given her Combivent and her oxygen is baseline for her to 90 to 94% on room air She has no chest pain nor she short of breath Her lungs are clear to auscultation She has received ceftriaxone, blood cultures are pending, lactate 1.8, and her blood pressure has remained stable She is agreeable to transportation at this time and she has no additional infectious signs or symptoms Of note she did develop a fever of 38.2, she received Toradol and Tylenol She is no longer febrile She is aware she is being transported to [facility] has consented to this risk She has full CODE STATUS Medical Records Medical records reviewed: Yes I reviewed the patient's medical records. Lab Data Lab results reviewed: Yes I reviewed the patient's lab results. Sign Out No HPI General Date/Time Provider Initiated Documentation: 11/08/22 08:36. HPI Narrative: This 56-year-old female with history of pulmonary embolism and COPD presents with report of right flank pain, nausea, vomiting, started just prior to arrival. Has vomited numerous times. Denies any anterior abdominal pain. States the pain radiates into her groin. Denies any fever or chills. Denies any chest pain or shortness of breath. Related Data Home Medications Medication Instructions Recorded Confirmed buprenorphine 12 mg-naloxone 3 mg 1 film sublingual DAILY 12/16/21 11/08/22 sublingual film (Suboxone) buprenorphine 8 mg-naloxone 2 mg 1 film sublingual DAILY 12/16/21 11/08/22 sublingual film (Suboxone) ascorbic acid (vitamin C) 500 mg 1,000 mg PO BID #0 tabs 12/18/21 11/08/22 tablet (Vitamin C) cholecalciferol (vitamin D3) 25 2,000 units PO DAILY #0 tabs 12/18/21 11/08/22 mcg (1,000 unit) tablet ipratropium 20 mcg-albuterol 100 1 puff inhalation QID #1 g 12/18/21 11/08/22 mcg/actuation mist for inhalation (Combivent Respimat) budesonide-formoterol HFA 160 2 puff inhalation BID 09/14/22 11/08/22 mcg-4.5 mcg/actuation aerosol inhaler (Symbicort) Previous Rx's Medication Instructions Recorded ascorbic acid (vitamin C) 500 mg 1,000 mg PO BID #0 tabs 12/18/21 tablet (Vitamin C) cholecalciferol (vitamin D3) 25 2,000 units PO DAILY #0 tabs 12/18/21 mcg (1,000 unit) tablet ipratropium 20 mcg-albuterol 100 1 puff inhalation QID #1 g 12/18/21 mcg/actuation mist for inhalation (Combivent Respimat) Allergies Allergy/AdvReac Type Severity Reaction Status Date / Time aspirin Allergy Unknown Verified 11/08/22 08:32 codeine Allergy Unknown Verified 11/08/22 08:32 General Stated Complaint: Abd Prob SADIA: 3 Review of Systems All systems reviewed & are unremarkable except as noted in HPI and below PFSH All Active Problems (Updated 11/10/22 @ 09:38 by ZARINA Rivas) Kidney stone (Chronic) Urinary tract infection (Acute) Back pain (Acute) Venous stasis dermatitis (Acute) Smoking (Acute) Hypertension (Chronic) Vitamin D deficiency (Acute) Dysuria (Acute) Lymphedema (Acute) Screening for colon cancer (Acute) Edema of both lower extremities (Acute) Pulmonary embolism (Acute) SARS-CoV-2 positive (Acute) Pneumonia due to 2019 novel coronavirus (Acute) Multifocal pneumonia (Acute) Medical History COPD (chronic obstructive pulmonary disease) 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, on suboxone Hypoxia Morbid obesity Surgical History History of femur fracture hardware in femur Family History Mother Diabetes Father Hypertension Social History Smoking/Tobacco Use Status: Current every day Tobacco Type: cigarettes Smoking packs per day: 0.33 Smoking cigarettes per day: 6.6 Counseling given: provider counseling and support medications Smoking risk assessment performed?: Yes Alcohol Intake: never Substance use type: does not use Exam Const General: cooperative, comfortable and no acute distress Eyes Sclera: sclerae normal Resp Effort & Inspection: normal respiratory effort Auscultation: clear to auscultation bilaterally Cardio Rate: regular rate Rhythm: regular rhythm GI Other: Right CVA tenderness, no abdominal bruit or pulsatile mass Skin General skin exam: no rashes or lesions noted Neuro General: patient alert and patient oriented x3 Extrem Other: No calf swelling or tenderness, distal pulses intact Course Vital Signs Vital signs: Vital Signs Temperature 36.5 C 11/08/22 08:29 Pulse 79 11/08/22 08:29 Respiratory Rate 20 11/08/22 08:29 Blood Pressure 177/116 H 11/08/22 08:29 Pulse Oximetry 94 11/08/22 08:29 Temperature 38.3 C H 11/08/22 15:34 Temperature Source Tympanic 11/08/22 15:34 Pulse 95 H 11/08/22 15:34 Respiratory Rate 20 11/08/22 08:29 Respiratory Effort Non-Labored 11/08/22 08:33 Blood Pressure 144/92 H 11/08/22 15:34 Blood Pressure Position Sitting 11/08/22 08:29 Pulse Oximetry 86 L 11/08/22 15:34 Oxygen Delivery Method Room Air 11/08/22 15:34 Oxygen Flow Rate 0 11/08/22 15:34 Pain Level 10 11/08/22 10:26 Lab/Test Results Lab/Test Results: 11/08/22 14:30 Blood Blood Culture - Pending 11/08/22 14:20 Blood Blood Culture - Pending 11/08/22 12:00 Urine - Reflex from Ua Urine Culture - Pending Laboratory Tests Range/Units 11/08/22 11/08/22 11/08/22 08:45 08:45 08:53 WBC (4.4-10.8) 10^3/uL 4.34 L RBC (3.93-5.22) 10^6/uL 4.21 Hgb (11.2-15.7) g/dL 13.0 Hct (36.0-46.0) % 39.3 MCV (80-95) fL 93 MCH (27.0-33.0) pg 30.9 MCHC (32.0-36.0) % 33.1 RDW (11.7-14.6) % 13.1 Plt Count (130-400) 10^3/uL 176 MPV (8.0-11.0) fL 9.0 Immature Gran % 0.2 Neutrophils % 70.5 Lymphocytes % 16.4 Monocytes % 8.1 Eosinophils % 4.1 Basophils % 0.7 Nucleated RBC % (0.0-0.3) % 0.0 Absolute Neutrophils (1.2-6.7) 10^3/uL 3.06 Absolute Lymphocytes (1.2-3.4) 10^3/uL 0.71 L Absolute Monocytes (0.1-0.8) 10^3/uL 0.35 Absolute Eosinophils (0.0-0.7) 10^3/uL 0.18 Absolute Basophils (0.0-0.2) 10^3/uL 0.03 VBG Lactate (0.6-1.4) mmol/L Sodium (136-145) mmol/L 139 Potassium (3.5-5.1) mmol/L 3.8 Chloride (98-107) mmol/L 102 Carbon Dioxide (21.0-32.0) mmol/L 29.6 Anion Gap (3-11) mmol/L 7.4 BUN (7-18) mg/dL 13 Creatinine (0.55-1.02) mg/dL 0.9 Est GFR (CKD-EPI 2020) (mL/min/1.73m2) 74.57 Glucose (74-106) mg/dL 111 H Calcium (8.5-10.1) mg/dL 8.7 Total Bilirubin (0.2-1.0) mg/dL 0.6 AST (15-37) U/L 18 ALT (14-59) U/L 22 Alkaline Phosphatase (46-116) U/L 87 Total Protein (6.4-8.2) g/dL 7.4 Albumin (3.4-5.0) g/dL 3.4 Lipase (73-393) U/L 39 Cancelled Urine Color (Yellow) Urine Clarity (Clear) Urine pH (5-8) Ur Specific [place] (1.005-1.025) Urine Protein (Negative) mg/dL Urine Ketones (Negative) mg/dL Urine Blood (Negative) Urine Nitrite (Negative) Urine Bilirubin (Negative) Urine Urobilinogen (Up TO 0.2) EU/dL Ur Leukocyte Esterase (Negative) Urine RBC (0-2) HPF Urine WBC (0-5) HPF Ur Epithelial Cells (Negative) HPF Urine Crystals (Negative) HPF Urine Bacteria (Negative) HPF Urine Mucus (Negative) Ur Culture Indicated? Urine Glucose (Negative) mg/dL Range/Units 11/08/22 11/08/22 12:00 13:52 WBC (4.4-10.8) 10^3/uL RBC (3.93-5.22) 10^6/uL Hgb (11.2-15.7) g/dL Hct (36.0-46.0) % MCV (80-95) fL MCH (27.0-33.0) pg MCHC (32.0-36.0) % RDW (11.7-14.6) % Plt Count (130-400) 10^3/uL MPV (8.0-11.0) fL Immature Gran % Neutrophils % Lymphocytes % Monocytes % Eosinophils % Basophils % Nucleated RBC % (0.0-0.3) % Absolute Neutrophils (1.2-6.7) 10^3/uL Absolute Lymphocytes (1.2-3.4) 10^3/uL Absolute Monocytes (0.1-0.8) 10^3/uL Absolute Eosinophils (0.0-0.7) 10^3/uL Absolute Basophils (0.0-0.2) 10^3/uL VBG Lactate (0.6-1.4) mmol/L 1.8 H Sodium (136-145) mmol/L Potassium (3.5-5.1) mmol/L Chloride (98-107) mmol/L Carbon Dioxide (21.0-32.0) mmol/L Anion Gap (3-11) mmol/L BUN (7-18) mg/dL Creatinine (0.55-1.02) mg/dL Est GFR (CKD-EPI 2020) (mL/min/1.73m2) Glucose (74-106) mg/dL Calcium (8.5-10.1) mg/dL Total Bilirubin (0.2-1.0) mg/dL AST (15-37) U/L ALT (14-59) U/L Alkaline Phosphatase (46-116) U/L Total Protein (6.4-8.2) g/dL Albumin (3.4-5.0) g/dL Lipase (73-393) U/L Urine Color (Yellow) Yellow Urine Clarity (Clear) Sl Cloudy Urine pH (5-8) 6.0 Ur Specific [place] (1.005-1.025) 1.020 Urine Protein (Negative) mg/dL 30 H Urine Ketones (Negative) mg/dL Negative Urine Blood (Negative) Moderate H Urine Nitrite (Negative) Positive H Urine Bilirubin (Negative) Negative Urine Urobilinogen (Up TO 0.2) EU/dL 0.2 Ur Leukocyte Esterase (Negative) Trace H Urine RBC (0-2) HPF 10-20 H Urine WBC (0-5) HPF 20-50 H Ur Epithelial Cells (Negative) HPF Rare Urine Crystals (Negative) HPF Negative Urine Bacteria (Negative) HPF Many Urine Mucus (Negative) Negative Ur Culture Indicated? Yes Urine Glucose (Negative) mg/dL Negative
[2022-11-08] MEDS: Ipratropium/Albuterol 4 GM 120 PUFF INH IH (16:26)
== END 2022-11-08 17:14 | disposition short-term general hospital (02) ==
PROVIDERS: Emergency Provider Physician Assistant; PCP Family Medicine
DX: N13.2 Hydronephrosis with renal and ureteral calculous obstruction (principal); N39.0 Urinary tract infection, site not specified; J44.9 Chronic obstructive pulmonary disease, unspecified; Z79.51 Long term (current) use of inhaled steroids; Z79.52 Long term (current) use of systemic steroids; Z86.711 Personal history of pulmonary embolism
CPT/HCPCS: 36410; 36415; 80053; 83690; 87040; 87077; 96361; 96365; 96375; 99285; 74177; 81003; 81015; 83605; 85025; 87086; 87186; J0696; J1885; J2405; J2765; J3490

== ENCOUNTER 2022-12-10 12:57 | Outpatient (REF) | payer MEDICAID, SELFPAY | END 2022-12-10 12:58 | disposition home or self-care (01) | LOC: LBN 12:57 | PROVIDERS: PCP Family Medicine; Visit Provider Physician Assistant Medical | DX: R30.0 Dysuria | CPT/HCPCS: 87077; 87086; 87186 ==

== ENCOUNTER 2023-01-12 00:21 | Outpatient (CLI) | payer MEDICAID, SELFPAY ==
--- NOTE | 2023-01-12 | DI.US_ITS ---
Exam(s) US LOWER EXTREMITY VENOUS RT EXAM: US LOWER EXTREMITY VENOUS RT CLINICAL HISTORY: RT LEG PAIN, M79.604, LYMPHEDEMA, I89.0, H/O PE, H/O COVID TECHNIQUE: Grayscale, color, and doppler imaging of the deep venous system of the right lower extrem ity was performed. COMPARISON: No exams were available for comparison FINDINGS: There is no evidence of intraluminal thrombus and there is normal compression and augmentation demons trated within the common femoral vein, femoral vein, and popliteal vein. In the ipsilateral calf it was not possible to visualize the deep veins due to patient body habitus.. The ipsilateral saphenofemoral junction is patent. IMPRESSION: 1. No evidence of DVT in the right lower extremity, at and above the popliteal vein-knee level.. Calf veins were not able to be studied. DATA REPOSITORY:
== END 2023-01-12 00:41 ==
PROVIDERS: PCP Family Medicine; Visit Provider Family Medicine
DX: M79.604 Pain in right leg (principal); I89.0 Lymphedema, not elsewhere classified; Z86.16 Personal history of COVID-19
CPT/HCPCS: 93971

== ENCOUNTER 2023-01-15 16:40 | Outpatient (REF) | payer MEDICAID, SELFPAY ==
[2023-01-15 18:42] LABS: Bilirubin Negative (Negative); Blood Trace-intact (Negative); Clarity Sl Cloudy (Clear); Glucose Negative (Negative); Ketones Negative (Negative); Leukocyte Esterase Moderate (Negative); Nitrite Negative (Negative); Urobilinogen 0.2 mg/dL (Up to 0.2); pH 8.5 (5-8)
[2023-01-15 18:59] LABS: Bacteria Many HPF (Negative); C & S Indicated? Yes; Crystals Negative HPF (Negative); Epithelial Cells Few HPF (Negative); Mucus Trace (Negative); WBC >50 HPF (0-5)
== END 2023-01-15 16:41 | disposition home or self-care (01) ==
LOC: NCHCN 16:40
PROVIDERS: PCP Family Medicine; Visit Provider Family Medicine
DX: N39.0 Urinary tract infection, site not specified (principal)
CPT/HCPCS: 87077; 81003; 81015; 87086; 87186

== ENCOUNTER 2023-05-10 09:54 | Inpatient (IN) | payer MEDICAID, SELFPAY ==
[2023-05-10] VITALS (125 sets, daily range): BP systolic 102–162; BP diastolic 59–107; PULSE 75–107; RESP 4–36; TEMP 36.6–36.8; O2SAT 76–99
--- NOTE | 2023-05-10 09:45 | RT.EKG_ITS ---
APPROVED REPORT Exam: Resting ECG Reason for Exam: SOB Patient Location: E HR:103 bpm ECG Measurements Heart Rate 103 AXIS [place] 171 P 73 QRSd 92 QRS 22 QT 334 T 43 QTc 437 Conclusion Sinus tachycardia...rate> 99 Multiple ventricular premature complexes...V complexes w/ short R-R intervls Aberrant conduction of SV complex(es)...aberrant shape, [place] 80-220 Narrow complex sinus tachycardia at a rate of 103 bpm. Normal axis. Intervals within normal limits. Difficult to interpret secondary to significant artifact. Perhaps mild ST segment elevation in sam d I and aVL. Compared to prior tachycardia has replaced normal sinus rhythm. Prior dated last year.
--- NOTE | 2023-05-10 09:59 | W.ED.GENAD ---
Discharge Plan Disposition Patient Disposition: Admit to [facility] Discharge Details Clinical Impression: Acute respiratory failure with hypoxia and hypercarbia, COPD with acute exacerbation, Community acquired pneumonia of left lung Admit Date/Time: 05/10/23 14:16 Admit Provider: Tad Austin Attending Provider: Tad Austin Primary Care Provider: Jaime Bangura ED Provider: Jaime Villa Discharge Data Discharge Date/Time-TO BE ENTERED AT DEPARTURE: 05/10/23 16:44 Medical Decision Making This is a mildly tachycardic but normothermic obese female with diffuse end expiratory wheezes with history of COPD and prehospital acute hypoxia concerning for exacerbation of reactive airway disease. Patient does have a history of PE so we will obtain a D-dimer to assess for risk of PE. She does have significant lower extremity edema and she reports that this is chronic. Will obtain troponin to assess for myocardial injury although the patient denies any specific chest pain. Patient has received 125 mg of methylprednisolone. Will order an additional 5 mg of nebulized albuterol given that the patient has received ipratropium albuterol. We will obtain a venous blood gas to assess for hypercarbia and acidemia. I considered sepsis however the patient has had no recent fevers. We will obtain a portable chest x-ray to assess for pneumonia although the patient had no focal lung abnormalities on auscultation. She does report persistent UTI with hematuria and recent history of lithotripsy so we will obtain a urinalysis. We will obtain a respiratory viral swab. We will treat with doxycycline for COPD exacerbation. I feel that her tachycardia is likely secondary to albuterol administration prehospital. 10:15 AM Patient's work of breathing is markedly improved on BiPAP with settings of 10/5 on 40% FiO2. Her PCO2 on end-tidal CO2 was 63 mmHg upon arrival. 10:47 AM Venous blood gas showing acidemia and hypercarbia. 11:07 AM Troponin negative. Basic metabolic panel with mild increase in bicarbonate. No VIRAL. No anion gap. Mild hyperglycemia not consistent with DKA. CBC with no anemia thrombocytopenia nor leukocytosis. 11:42 AM Radiology read x-ray?concern for possible left upper lobe infiltrate. Will cover patient empirically with 2 g of ceftriaxone. 12:06 PM Positive D-dimer for which patient will undergo CTA to assess for PE. UA unfortunately unable to be interpreted but given symptoms and reported UA prehospital will cover with ceftriaxone as indicated above. 12:45 PM Negative respiratory viral swab. 1:15 PM Repeat VBG with persistent hypercarbia and acidemia for which I asked respiratory to adjust BiPAP settings. I reached out to nursing stock ranch supervisor Dulce as I anticipate patient will require hospitalization. Beds are reportedly tight and Dulce will call me back. 1:56 PM Repeat negative troponin. Apparently there is a bed opening up according to nursing stock ranch supervisor. I have paged the hospitalist to request hospitalization. 2:15 PM I spoke with Dr. Serra who graciously agreed to accept the patient for hospitalization. 3pm I spoke to radiology. No PE noted. Mild MAKSIM increased markings but not clearly an infiltrate. Chronic conditions affecting the care of the patient: COPD ureterolithiasis History obtained from an outside historian: Paramedics External record review: [facility] EMR Diagnostic interpretations performed by me: [Per my independent interpretation chest x-ray shows:] Increased interstitial markings bilaterally. No obvious infiltrate. Per my independent interpretation EKG shows: Narrow complex sinus tachycardia at a rate of 103 bpm. Normal axis. Intervals within normal limits. Difficult to interpret secondary to significant artifact. Perhaps mild ST segment elevation in lead I and aVL. Compared to prior tachycardia has replaced normal sinus rhythm. Prior dated last year. Medications: Albuterol and BIPAP Social determinants of health affecting disposition: lives with daughter Management discussed with: Respiratory therapy & hospitalist Treatment/interventions considered:sepsis Response to therapies provided: Improved work of breathing on BiPAP HPI General Date/Time Provider Initiated Documentation: 05/10/23 10:12. HPI Narrative: This is a 57-year-old female tobacco who vapes tobacco and has a history of COPD arriving to the ED in the setting of acute shortness of breath. Patient arrives via paramedics. She was reportedly found to have a room air oxygen saturation of 75%. She is not on home oxygen. Paramedics provided 3 nebulization treatments and gave patient 125 mg of methylprednisolone. Her oxygen saturation on nonrebreather improved to 92%. Her shortness of breath has been worsening for the past several days. She has had no chest pain and no history of CHF. She does have a history of ureterolithiasis and she reports receiving current outpatient antibiotics for urinary tract infection. She lives with her daughter. She has had ongoing hematuria. She denies routine ethanol and illicits. Unable to obtain additional history secondary to the acuity of the patient's presentation. Related Data Home Medications Medication Instructions Recorded Confirmed buprenorphine 12 mg-naloxone 3 mg 1 film sublingual DAILY 12/16/21 05/10/23 sublingual film (Suboxone) buprenorphine 8 mg-naloxone 2 mg 1 film sublingual DAILY 12/16/21 05/10/23 sublingual film (Suboxone) ascorbic acid (vitamin C) 500 mg 1,000 mg PO BID #0 tabs 12/18/21 05/10/23 tablet (Vitamin C) cholecalciferol (vitamin D3) 25 2,000 units PO DAILY #0 tabs 12/18/21 05/10/23 mcg (1,000 unit) tablet ipratropium 20 mcg-albuterol 100 1 puff inhalation QID #1 g 12/18/21 05/10/23 mcg/actuation mist for inhalation (Combivent Respimat) esomeprazole magnesium 40 mg 40 mg PO DAILY #30 ea 05/12/23 granules delayed release for susp (Nexium Packet) furosemide 40 mg tablet (Lasix) 40 mg PO DAILY #30 tabs 05/12/23 methylprednisolone 8 mg tablet See Rx Instructions .Route 05/12/23 .COMPLEX #20 tabs spironolactone 25 mg tablet 25 mg PO DAILY #30 tabs 05/12/23 Previous Rx's Medication Instructions Recorded ascorbic acid (vitamin C) 500 mg 1,000 mg PO BID #0 tabs 12/18/21 tablet (Vitamin C) cholecalciferol (vitamin D3) 25 2,000 units PO DAILY #0 tabs 12/18/21 mcg (1,000 unit) tablet ipratropium 20 mcg-albuterol 100 1 puff inhalation QID #1 g 12/18/21 mcg/actuation mist for inhalation (Combivent Respimat) esomeprazole magnesium 40 mg 40 mg PO DAILY #30 ea 05/12/23 granules delayed release for susp (Nexium Packet) furosemide 40 mg tablet (Lasix) 40 mg PO DAILY #30 tabs 05/12/23 methylprednisolone 8 mg tablet See Rx Instructions .Route 05/12/23 .COMPLEX #20 tabs spironolactone 25 mg tablet 25 mg PO DAILY #30 tabs 05/12/23 Allergies Allergy/AdvReac Type Severity Reaction Status Date / Time aspirin Allergy Unknown Verified 05/10/23 10:01 codeine Allergy Unknown Verified 05/10/23 10:01 General SADIA: 3 PFSH All Active Problems (Updated 05/13/23 @ 00:20 by KHOA FRIEDMAN) COPD with acute exacerbation (Acute) Back pain (Acute) Venous stasis dermatitis (Chronic) Smoking (Acute) Hypertension (Chronic) Vitamin D deficiency (Acute) Dysuria (Acute) Lymphedema (Acute) Screening for colon cancer (Acute) Edema of both lower extremities (Acute) Multifocal pneumonia (Acute) Medical History COPD (chronic obstructive pulmonary disease) 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, on suboxone Hypoxia Morbid obesity Pneumonia due to 2019 novel coronavirus Pulmonary embolism (~12/16/21) SARS-CoV-2 positive Surgical History History of femur fracture hardware in femur Family History Mother Diabetes Father Hypertension Social History Smoking/Tobacco Use Status: Current every day Tobacco Type: cigarettes Smoking packs per day: 0.33 Smoking cigarettes per day: 6.6 and e-cigarettes Counseling given: provider counseling and support medications Smoking risk assessment performed?: Yes Alcohol Intake: former Drug use: Current Sobriety Substance use type: heroin Details: Currently on Suboxone Do you feel safe at home: Yes Do you feel safe in your relationship?: Yes Exam Narrative Exam Narrative: General: Chronically ill-appearing in no moderate distress speaking in 2-3 word sentences. Head: Normocephalic, atraumatic. Eye: Pupils equal, round reactive to light. Extraocular eye movements intact. No conjunctival injection. No scleral icterus. Ear, nose, mouth, throat: Grossly normal inspection. Normal voice, handling secretions normally. Neck: Trachea midline. Cardiovascular: Well-perfused distal extremities. Rapid regular rate Respiratory: Labored respirations with respiratory rate in the upper 50s. Diffuse prolonged expiratory phase all lung tavares. No focal abnormalities. Moderate accessory muscle use. Gastrointestinal: Nondistended abdomen. Soft nontender. Musculoskeletal: Marked bilateral lower extremity edema. Chronic changes of venous stasis. No open wounds. No superimposed cellulitis. Moving all 4 extremities spontaneously. Please see picture lower extremities: Skin: Normal for age and race, grossly normal temperature and turgor. No acute rash. Neurologic: Alert and appropriate, no apparent acute deficits. Psychiatric: Mood and manner are appropriate. Grooming and personal hygiene are appropriate. Critical Care Time Critical Care Time Critical Care Time: Yes Total Critical Care Time: 30 Attestation: Bedside assessment, analysis of blood gas, interpretation of x-rays and ECGs
[2023-05-10 10:34] LABS: BE (Venous) 4 mmol/L (-2-3); HCO3 (Venous) 31 mmol/L (23-28); O2 Sat (Venous) 84 %; TCO2 (Venous) 29 mmol/L (24-29); pH (Venous) 7.28 (7.31-7.41); pO2 (Venous) 51 mmHg
[2023-05-10 10:36] LABS: pCO2 (Venous) 66 mmHg (41-51)
--- NOTE | 2023-05-10 10:40 | DI.RAD_ITS ---
Exam(s) XR PORTABLE CHEST AP EXAM: XR PORTABLE CHEST AP CLINICAL HISTORY: Shortness of breath. TECHNIQUE: 2D digital imaging was performed. COMPARISON: CR,XR XR PORTABLE CHEST AP from 12/16/2021 FINDINGS: Single AP portable view. Heart size is upper normal. The mediastinum is not widened. Density projected over both mid lung tavares may be related to technique and overlying breast tissue b ut cannot exclude infiltrate, particularly on the left side. No obvious pleural effusions. Recommend nonportable PA and lateral views when clinically possible. I note that this patient head b ilateral infiltrates on prior chest x-ray November 2021. Right humerus hardware noted. IMPRESSION: As above. Possible left lung infiltrate versus is overlying breast tissue.. Recommend nonportable P A and lateral views when clinically possible. DATA REPOSITORY: RADIATION DOSE DELIVERED:
[2023-05-10 10:48] LABS: Abs Immature Grans 0.02 10^3/uL (0.0-0.06); Absolute Basophil Count 0.04 10^3/uL (0.0-0.2); Absolute Eosinophil Count 0.47 10^3/uL (0.0-0.7); Absolute Lymphocyte Count 1.17 10^3/uL (1.2-3.4); Absolute Monocyte Count 0.33 10^3/uL (0.1-0.8); Absolute Neutrophil Count 4.31 10^3/uL (1.2-6.7); Basophils % 0.6; Eosinophils % 7.4; HCT 40.9 % (36.0-46.0); HGB 13.5 g/dL (11.2-15.7); Immature Grans % 0.3; Lymphocytes % 18.5; MCH 31.3 pg (27.0-33.0); MCV 95 fL (80-95); MPV 9.3 fL (8.0-11.0); Monocytes % 5.2; Platelet Count 218 10^3/uL (130-400); RBC 4.31 10^6/uL (3.93-5.22); RDW 13.2 % (11.7-14.6); RDW-SD 45.8 fL; WBC 6.34 10^3/uL (4.4-10.8)
[2023-05-10 11:05] LABS: Anion Gap 3.2 mmol/L (3-11); BUN 12 mg/dL (7-18); CO2 32.8 mmol/L (21.0-32.0); CREATININE 0.8 mg/dL (0.55-1.02); Calcium 9.2 mg/dL (8.5-10.1); Chloride 103 mmol/L (98-107); Estimated GFR 85.35 (mL/min/1.73m2); Glucose 127 mg/dL (74-106); Potassium 4.3 mmol/L (3.5-5.1); Sodium 139 mmol/L (136-145); Troponin I < 50 ng/L (<or=60)
[2023-05-10 11:51] LABS: D-Dimer 1178 ng/mlFEU (<500)
[2023-05-10 11:56] LABS: Clarity Cloudy (Clear); Specific Gravity 1.022 (1.005-1.025)
[2023-05-10 11:57] LABS: Bilirubin Color Interference (Negative); Blood Color Interference (Negative); Glucose Color Interference mg/dL (Negative); Ketones Color Interference mg/dL (Negative); Leukocyte Esterase Color Interference (Negative); Nitrite Color Interference (Negative); Urobilinogen Color Interference mg/dL (Up to 0.2)
[2023-05-10 11:59] LABS: C & S Indicated? Yes; RBC >50 HPF (0-2)
--- NOTE | 2023-05-10 12:00 | DI.CT_ITS ---
Exam(s) CT CHEST PE CTA EXAM: CT CHEST PE CTA CLINICAL HISTORY: Shortness of breath positive dimer. TECHNIQUE: Imaging Protocol: CT angiography of the chest was performed using pulmonary embolus cosmo col. Multi planar reconstructions were performed. CONTRAST MATERIAL: Intravenous: Omnipaque 350 Contrast volume: 100 cc COMPARISON: CT CT ABDOMEN PELVIS W from 11/08/2022 CR XR PORTABLE CHEST AP from 05/10/2023 FINDINGS: CHEST: Motion artifact evident on these images. Also suboptimal opacification of the pulmonary artery tree. PULMONARY ARTERIES: There are no obvious intraluminal filling defects in the main pulmonary arteries pulmonary artery trunk. Distal to this the opacification is suboptimal for accurate assessment. LUNGS: There are mild increased markings in the apical posterior segment of the left upper lobe adjac ent to the upper aspect of the major fissure. No other areas of obvious infarct nor pleural effusion s. No obvious significant pulmonary nodules, realizing the limitations due to motion artifact.. MEDIASTINUM: There is no hilar nor mediastinal adenopathy. Visualized thyroid unremarkable. CARDIAC: Heart size is upper normal. There is no pericardial effusion.Caliber of the thoracic aorta is within normal limits. There is no significant shift of the interventricular septum. Also no refl ux of contrast into the intrahepatic IVC. PARTIALLY VISUALIZED UPPERMOST ABDOMEN: Spleen appears slightly prominent. 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 Also nonacute appearing compression fracture of T9.. IMPRESSION: 1. No evidence of acute central pulmonary emboli..Opacification of pulmonary arteries distal to this is suboptimal and also compounded by respiratory motion artifact here. 2. No obvious right heart strain. 3. No evidence of aortic dissection nor pericardial effusion. 4. Mild increased markings in the left upper lobe adjacent to the upper aspect of the major fissure, but without prominent areas of infiltrate nor pleural effusions on either side. 5. Kyphosis with epicenter at T7-T8. Report called by myself to ER physician. RADIATION DOSE DELIVERED: 610.58mGy.cm Total DLP DATA REPOSITORY: All CT scans at this facility are submitted to the National Radiology Data Registry (NRDR) Dose Index Registry (DIR) with the [employer] (ACR). RADIATION OPTIMIZATION: All CT scans at this facility use at least one of these dose optimization te chniques: automated exposure control; mA and/or kV adjustment per patient size (includes targeted exa ms where dose is matched to clinical indication); or iterative reconstruction.
[2023-05-10] MEDS: cefTRIAXone 2 GM/50 ML BAG IVPB (12:02)
[2023-05-10] MEDS: Doxycycline Hyclate 100 MG CAP PO (12:02)
[2023-05-10 12:26] LABS: COVID-19 PCR Negative (Negative); Influenza A PCR Negative (Negative); Influenza B PCR Negative (Negative); RSV PCR Negative (Negative)
[2023-05-10 12:27] LABS: Source Nasopharynx
[2023-05-10 12:48] LABS: BE (Venous) 5 mmol/L (-2-3); HCO3 (Venous) 31 mmol/L (23-28); O2 Sat (Venous) 72 %; TCO2 (Venous) 29 mmol/L (24-29); pO2 (Venous) 39 mmHg
[2023-05-10 12:52] LABS: pCO2 (Venous) 65 mmHg (41-51)
[2023-05-10 12:53] LABS: pH (Venous) 7.29 (7.31-7.41)
[2023-05-10 13:48] LABS: Troponin I < 50 ng/L (<or=60)
[2023-05-10] MEDS: Omnipaque 350 MG/ML 100 ML BTL IJ (14:03)
[2023-05-10] MEDS: Normal Saline - Diluent 50 ML VIAL IJ (14:03)
--- NOTE | 2023-05-10 16:00 | W.PM.HP.N ---
Date of service: 05/10/23 Time of Service: 16:00 Assessment and Plan Assessment and plan (1) COPD with acute exacerbation: Status: Acute Assessment and plan: iv corticosteroids, bronchodilators, empiric antbiotics coverage w/ Rocephin and doxycycline while we rule out concomittant superimposed respiratory infection, supportive care w/ BIPAP, monitor repeat VBG's Critical care time spent interviewing and examining the patient, reviewing studies, discussing case with patient's nurse and consulting physicians was 60 minutes (2) Acute respiratory failure with hypoxia and hypercarbia: Status: Acute Assessment and plan: as above. (3) Edema of both lower extremities: Status: Acute Assessment and plan: Suspect that she probably has some right-sided heart failure secondary to her underlying COPD +/- ISABELLE. We will give her a trial of IV Lasix. Consider follow-up echocardiogram in the morning to evaluate for pulmonary hypertension. Note last echocardiogram was performed 12/16/2021. This was a technically difficult study limited due to supine position in ICU. Left ventricular size and wall thickness were normal with global normal LV function with a EF 55 to 60% with no wall motion abnormalities. RV was normal in size and structure and function with estimated PASP of 31 mm. 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 Although CTA did not show any large PE, she is at risk for DVT/PE, as such I have put her on higher dose lovenox 40 mg SC Q12h. (7) Hypertension: Status: Chronic Assessment and plan: Patient is not currently on antihypertensive medications. (8) DVT prophylaxis: Status: Resolved Assessment and plan: Enoxaparin 40 mg subcutaneously every 12 hours History of Present Illness History of Present Illness Chief Complaint: shortness of breath Narrative: 57 yr old female w/ hx of COPD, not on home oxygen, who vapes tobacco and this morning was acutely dyspneic and hypoxemic, found by EMS to be 75% on RA and was given supplemental oxygen w/ NRB mask, 3 nebulized bronchodilators, and methylprednisolone 125 mg IVP. On arrival she was in respiratory extremis w/ RR 36 bpm, using accessory resp. muscles, tachycardic w/ HR in the 100 to 110 bpm, she was placed on BIPAP. Her initial VBG demonstrated hypercarbic and hypoxemia respiratory failure w/ PCO2 66, pH 7.28, pO2 51, however, clinically she improved in her tachycardia, hypoxemia and tachypnea resolved w/ BIPAP. CXR demonstrated possible left lung infiltrate. Due to unclear CXR and elevated d-dimer, CT scan of the chest was done and did not demonstrate any infiltrates, nor any PE, although opacification of her distal pulmonary arteries was suboptimal making it difficult to exclude distal PE. Nevertheless, patient improved w/ aerosol treatments and BIPAP. Patient was given ceftriaxone and doxycycline empirially while in the ED pending her CT scan. Patient will now be admitted to the ICU for treatment of acute hypoxemic and hypercarbic respitory failure d/t COPD exacerbation. Review of Systems Constitutional Constitutional: Reports chills, Denies fever(s), Reports lethargy, Denies snoring (she says her daughter had not noticed any snoring) and Denies stops breathing during sleep (she does not recall this occurring and her daughter has not told her of any) Eyes Eyes: Reports system reviewed and no additional complaints, except as documented Cardiovascular Cardiovascular: Denies chest pain, Reports pedal edema, Reports leg ulcers, Reports leg edema, Denies palpitations, Reports dyspnea and Reports dyspnea on exertion Respiratory Respiratory: Denies change in phlegm color, Reports cough, Denies hemoptysis, Denies excessive phlegm production, Reports dyspnea, Reports dyspnea on exertion and Denies snoring (she says her daughter had not noticed any snoring) Gastrointestinal Gastrointestinal: Reports system reviewed and no additional complaints, except as documented Genitourinary Genitourinary: Reports system reviewed and no additional complaints, except as documented Musculoskeletal Musculoskeletal: Reports system reviewed and no additional complaints, except as documented Integumentary/Breasts Skin/Breast: Reports skin ulcer (chronic bilateral leg/pedal edema w/ ulceration of right lower leg) Neurologic Neurologic: Reports system reviewed and no additional complaints, except as documented Psychiatric Psychiatric: Reports system reviewed and no additional complaints, except as documented Endocrine Endocrine: Reports system reviewed and no additional complaints, except as documented and Denies palpitations Hematologic/Lymphatic Hematologic/Lymphatic: Reports system reviewed and no additional complaints, except as documented PFSH All Active Problems (Updated 05/10/23 @ 16:46 by Tad Austin MD) Acute respiratory failure with hypoxia and hypercarbia (Acute) COPD with acute exacerbation (Acute) Community acquired pneumonia of left lung (Acute) Back pain (Acute) Venous stasis dermatitis (Acute) Smoking (Acute) Hypertension (Chronic) Vitamin D deficiency (Acute) Dysuria (Acute) Lymphedema (Acute) Screening for colon cancer (Acute) Edema of both lower extremities (Acute) Multifocal pneumonia (Acute) Medical History (Updated 05/10/23 @ 16:46 by Tad Austin MD) COPD (chronic obstructive pulmonary disease) 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, on suboxone Hypoxia Morbid obesity Pneumonia due to 2019 novel coronavirus Pulmonary embolism (~12/16/21) SARS-CoV-2 positive Surgical History History of femur fracture hardware in femur Family History Mother Diabetes Father Hypertension Social History Smoking/Tobacco Use Status: Current every day Tobacco Type: cigarettes Smoking packs per day: 0.33 Smoking cigarettes per day: 6.6 and e-cigarettes Counseling given: provider counseling and support medications Smoking risk assessment performed?: Yes Alcohol Intake: former Drug use: Current Sobriety Substance use type: heroin Details: Currently on Suboxone Do you feel safe at home: Yes Do you feel safe in your relationship?: Yes Meds Allergies and Home Medications Allergies Allergy/AdvReac Type Severity Reaction Status Date / Time aspirin Allergy Unknown Verified 05/10/23 10:01 codeine Allergy Unknown Verified 05/10/23 10:01 Home Medications Medication Instructions Recorded Confirmed Type buprenorphine 12 mg-naloxone 3 mg 1 film sublingual DAILY 12/16/21 05/10/23 History sublingual film (Suboxone) buprenorphine 8 mg-naloxone 2 mg 1 film sublingual DAILY 12/16/21 05/10/23 History sublingual film (Suboxone) ascorbic acid (vitamin C) 500 mg 1,000 mg PO BID #0 tabs 12/18/21 05/10/23 Rx tablet (Vitamin C) cholecalciferol (vitamin D3) 25 2,000 units PO DAILY #0 tabs 01/20/22 06/12/23 Rx mcg (1,000 unit) tablet ipratropium 20 mcg-albuterol 100 1 puff inhalation QID #1 g 12/18/21 05/10/23 Rx mcg/actuation mist for inhalation (Combivent Respimat) Exam Narrative Exam Narrative: Redheaded morbidly obese female lying in bed wearing a BiPAP mask. She is alert and oriented to person place time circumstance. HEENT she is edentulous there is no exudate of the oropharynx. She is mildly hard of hearing. Neck is supple obese difficult to discern a JVD she has normal carotid pulses Lungs reveal diffuse scattered expiratory wheezes with bibasilar rales no rhonchi Heart is regular rate and rhythm no appreciable murmur rub Abdomen obese soft and nontender normal bowel sounds Lower extremities she has 2+ pitting edema bilaterally she has chronic venous stasis skin changes with elephant like skin with dry crusting of the skin and she has open ulceration over the right distal medial lower leg. Pedal pulses are intact. No peripheral cyanosis 2+ pedal edema Neuro exam nonfocal no facial asymmetry no dysarthric speech she is alert and oriented x3 normal range of motion both upper and lower extremities sensation grossly intact. Results Labs 05/10/23 10:29 05/10/23 10:29 Labs: Laboratory Results - last 24 hr 05/10/23 05/10/23 05/10/23 10:29 10:29 10:29 WBC 6.34 RBC 4.31 Hgb 13.5 Hct 40.9 MCV 95 MCH 31.3 MCHC 33.0 RDW 13.2 Plt Count 218 MPV 9.3 Immature Gran % 0.3 Neutrophils % 68.0 Lymphocytes % 18.5 Monocytes % 5.2 Eosinophils % 7.4 Basophils % 0.6 Nucleated RBC % 0.0 Absolute Neutrophils 4.31 Absolute Lymphocytes 1.17 L Absolute Monocytes 0.33 Absolute Eosinophils 0.47 Absolute Basophils 0.04 D-Dimer VBG pH 7.28 L VBG pCO2 66 H* VBG pO2 51 VBG HCO3 31 H VBG Total CO2 29 VBG O2 Saturation 84 VBG Base Excess 4 H Sodium 139 Potassium 4.3 Chloride 103 Carbon Dioxide 32.8 H Anion Gap 3.2 BUN 12 Creatinine 0.8 Est GFR (CKD-EPI 2020) 85.35 Glucose 127 H Calcium 9.2 Troponin I < 50 Urine Color Urine Clarity Urine pH Ur Specific [place] Urine Protein Urine Ketones Urine Blood Urine Nitrite Urine Bilirubin Urine Urobilinogen Ur Leukocyte Esterase Urine RBC Urine WBC Ur Epithelial Cells Urine Crystals Urine Bacteria Urine Mucus Ur Culture Indicated? Urine Glucose COVID-19 Source SARS-CoV-2 (PCR) Influenza Type A (PCR) Influenza Type B (PCR) RSV (PCR) 05/10/23 05/10/23 05/10/23 10:29 11:00 11:37 WBC RBC Hgb Hct MCV MCH MCHC RDW Plt Count MPV Immature Gran % Neutrophils % Lymphocytes % Monocytes % Eosinophils % Basophils % Nucleated RBC % Absolute Neutrophils Absolute Lymphocytes Absolute Monocytes Absolute Eosinophils Absolute Basophils D-Dimer Cancelled 1178 H VBG pH VBG pCO2 VBG pO2 VBG HCO3 VBG Total CO2 VBG O2 Saturation VBG Base Excess Sodium Potassium Chloride Carbon Dioxide Anion Gap BUN Creatinine Est GFR (CKD-EPI 2020) Glucose Calcium Troponin I Urine Color Brown Urine Clarity Cloudy Urine pH Ur Specific [place] 1.022 Urine Protein Color Interference Urine Ketones Color Interference Urine Blood Color Interference Urine Nitrite Color Interference Urine Bilirubin Color Interference Urine Urobilinogen Color Interference Ur Leukocyte Esterase Color Interference Urine RBC >50 H Urine WBC Not Applicable Ur Epithelial Cells Not Applicable Urine Crystals Not Applicable Urine Bacteria Not Applicable Urine Mucus Not Applicable Ur Culture Indicated? Yes Urine Glucose Color Interference COVID-19 Source SARS-CoV-2 (PCR) Influenza Type A (PCR) Influenza Type B (PCR) RSV (PCR) 05/10/23 05/10/23 05/10/23 11:41 12:41 13:07 WBC RBC Hgb Hct MCV MCH MCHC RDW Plt Count MPV Immature Gran % Neutrophils % Lymphocytes % Monocytes % Eosinophils % Basophils % Nucleated RBC % Absolute Neutrophils Absolute Lymphocytes Absolute Monocytes Absolute Eosinophils Absolute Basophils D-Dimer VBG pH 7.29 L VBG pCO2 65 H* VBG pO2 39 VBG HCO3 31 H VBG Total CO2 29 VBG O2 Saturation 72 VBG Base Excess 5 H Sodium Potassium Chloride Carbon Dioxide Anion Gap BUN Creatinine Est GFR (CKD-EPI 2020) Glucose Calcium Troponin I < 50 Urine Color Urine Clarity Urine pH Ur Specific [place] Urine Protein Urine Ketones Urine Blood Urine Nitrite Urine Bilirubin Urine Urobilinogen Ur Leukocyte Esterase Urine RBC Urine WBC Ur Epithelial Cells Urine Crystals Urine Bacteria Urine Mucus Ur Culture Indicated? Urine Glucose COVID-19 Source Nasopharynx SARS-CoV-2 (PCR) Negative Influenza Type A (PCR) Negative Influenza Type B (PCR) Negative RSV (PCR) Negative Last Vital Signs Temp 36.6 C 05/10/23 13:21 Pulse 85 05/10/23 13:46 Resp 11 L 05/10/23 13:46 BP 137/75 05/10/23 13:46 Pulse Ox 92 05/10/23 13:46 Time Spent Time spent with Patient: 55-74 minutes Time was spent: preparing to see the patient(eg.review tests), obtaining and/or reviewing separately otained hiistory, ordering medications,tests, procedures, referring, communicating with other health manager progressive care (Discussion with ICU nurses as well as Dr. Villa, ED provider), indepentently interpreting results, counseling the patient and care coordination
[2023-05-10 17:19] LABS: BE (Venous) 4 mmol/L (-2-3); HCO3 (Venous) 30 mmol/L (23-28); O2 Sat (Venous) 82 %; TCO2 (Venous) 28 mmol/L (24-29); pCO2 (Venous) 57 mmHg (41-51); pH (Venous) 7.33 (7.31-7.41); pO2 (Venous) 45 mmHg
[2023-05-10 17:21] LABS: Lactate 1.7 mmol/L (0.6-1.4)
[2023-05-10 17:39] LABS: Creatine Kinase 139 U/L (26-192)
[2023-05-10] MEDS: Nicotine 21 MG/24 HR PATCH TD (17:42)
[2023-05-10 17:46] LABS: NT-proBNP 286 pg/mL (<300)
[2023-05-10] MEDS: Albuterol/Ipratropium 3 ML UPD VIAL UPD ×2 (18:00→23:32)
[2023-05-10] MEDS: Normal Saline Flush 10 ML SYR IVP ×2 (18:18→21:38)
[2023-05-10] MEDS: Furosemide 40 MG/4 ML VIAL IVP (18:18)
[2023-05-10] MEDS: Ascorbic Acid 500 MG TAB 1000 MG PO (20:13)
[2023-05-10] MEDS: Enoxaparin 40 MG/0.4 ML SYR SC (20:13)
[2023-05-10] MEDS: methylPREDNISolone SUCC 125 MG VIAL 60 MG IVP (21:36)
[2023-05-10] MEDS: DOXYCYCLINE 100 MG in Normal Saline 100 ML IVPB (21:38)
[2023-05-11] VITALS (34 sets, daily range): BP systolic 106–155; BP diastolic 58–91; PULSE 68–95; RESP 4–24; TEMP 36.3–37.5; O2SAT 86–95
[2023-05-11] MEDS: methylPREDNISolone SUCC 125 MG VIAL 60 MG IVP (05:29)
[2023-05-11] MEDS: Furosemide 40 MG/4 ML VIAL IVP (05:30)
[2023-05-11] MEDS: Albuterol/Ipratropium 3 ML UPD VIAL UPD (06:02)
[2023-05-11 06:33] LABS: BE (Venous) 9 mmol/L (-2-3); HCO3 (Venous) 34 mmol/L (23-28); O2 Sat (Venous) 98 %; TCO2 (Venous) 30 mmol/L (24-29); pCO2 (Venous) 56 mmHg (41-51); pH (Venous) 7.39 (7.31-7.41); pO2 (Venous) 118 mmHg
[2023-05-11 06:35] LABS: Abs Immature Grans 0.04 10^3/uL (0.0-0.06); Absolute Basophil Count 0.01 10^3/uL (0.0-0.2); Absolute Lymphocyte Count 0.81 10^3/uL (1.2-3.4); Absolute Monocyte Count 0.13 10^3/uL (0.1-0.8); Absolute Neutrophil Count 5.08 10^3/uL (1.2-6.7); Basophils % 0.2; HCT 38.2 % (36.0-46.0); HGB 12.8 g/dL (11.2-15.7); Immature Grans % 0.7; Lymphocytes % 13.3; MCH 31.5 pg (27.0-33.0); MCHC 33.5 % (32.0-36.0); MCV 94 fL (80-95); MPV 9.1 fL (8.0-11.0); Monocytes % 2.1; Neutrophils % 83.7; Platelet Count 220 10^3/uL (130-400); RBC 4.06 10^6/uL (3.93-5.22); RDW 13.2 % (11.7-14.6); RDW-SD 45.1 fL; WBC 6.07 10^3/uL (4.4-10.8)
--- NOTE | 2023-05-11 07:00 | DI.US_ITS ---
Exam(s) US EXTREMITY VENOUS BI EXAM: US EXTREMITY VENOUS BI CLINICAL HISTORY: bilateral leg edema; hx of PE; elevated D-dimer TECHNIQUE: Grayscale, color, and doppler imaging of the deep venous system of both lower extremities was performed. COMPARISON: US US LOWER EXTREMITY VENOUS RT from 01/12/2023 FINDINGS: There is no evidence of obvious intraluminal thrombus and there is normal compression and augmentatio n demonstrated within the common femoral veins, femoral veins, and popliteal veins of both lower extr emities. However, due to patient body habitus and significant edema there was limited evaluation of the distal femoral veins bilaterally. In the calves the interrogated veins also exhibit normal compression/ augmentation properties. Pleas e note the mid posterior tibial veins and peroneal veins were not able to be interrogated due to karishma a. The greater saphenous veins also appear patent as do the saphenofemoral junctions bilaterally.. IMPRESSION: 1. Limited study due to body habitus and abundant edema with less than optimal visualization of the distal femoral veins bilaterally as well as veins in the calf. 2. No obvious DVT evident. DATA REPOSITORY:
[2023-05-11 07:02] LABS: ALT 19 U/L (14-59); AST 16 U/L (15-37); Albumin 3.3 g/dL (3.4-5.0); Alkaline Phosphatase 91 U/L (46-116); Anion Gap 3.4 mmol/L (3-11); BUN 12 mg/dL (7-18); Bilirubin, Total 0.4 mg/dL (0.2-1.0); CO2 33.6 mmol/L (21.0-32.0); CREATININE 0.8 mg/dL (0.55-1.02); Calculated LDL 95 mg/dL (<100); Chloride 102 mmol/L (98-107); Cholesterol 170 mg/dL (<200); Estimated GFR 85.35 (mL/min/1.73m2); Glucose 135 mg/dL (74-106); HDL Cholesterol 68 mg/dL (40-60); Sodium 139 mmol/L (136-145); Total Protein 7.2 g/dL (6.4-8.2); Triglyceride 36 mg/dL (<150)
[2023-05-11 07:06] LABS: Hemoglobin A1C 4.9 % (<5.7)
[2023-05-11 07:08] LABS: Calcium 8.9 mg/dL (8.5-10.1)
--- NOTE | 2023-05-11 08:00 | DI.US_ITS ---
APPROVED REPORT EXAM: Comprehensive 2D, Doppler, and color-flow Echocardiogram Patient Location: In-Patient Room/Bed: [address] [employer] Printing: Fidencio Baker RDMS, RVT Indications: dyspnea, bilateral edema; evaluate for CHF Other Information Study Quality: Fair. Technically limited study due to body habitus, inability to position patient exa m done supine bediside icu. Conclusion Normal left ventricular wall thickness and chamber size. Ejection fraction is 60 to 65%. Wall motio n is normal Normal right ventricular size and systolic function Left atrium is mildly dilated. Right atrial size is normal There is no structural or hemodynamically significant valvular disease Wall motion Left Ventricle The left ventricle is normal size. The left ventricular systolic function is normal. The left ventric ular ejection fraction is within the normal range. There is normal left ventricular wall thickness. T here is normal LV segmental wall motion. There is no ventricular septal defect visualized. LVEF is 60 -65%. Right Ventricle The right ventricle is normal size. Right ventricular systolic function is grossly normal. Atria Left atrium is mildly dilated. The right atrium size is normal. The interatrial septum is intact with no evidence for an atrial septal defect. Aortic Valve The aortic valve is normal in structure. Aortic valve is trileaflet. There is no aortic valvular sten osis. No aortic regurgitation is present. Mitral Valve The mitral valve is normal in structure. No evidence of mitral valve stenosis. Trace mitral regurgita tion. Tricuspid Valve The tricuspid valve is normal in structure. There is no tricuspid valve stenosis. Trace tricuspid reg urgitation. Unable to assess PA pressure. Pulmonic Valve Pulmonic valve is not well visualized. There is no pulmonic valvular stenosis. There is no pulmonic v alvular regurgitation. Great Vessels The aortic root is normal in size. The ascending aorta is normal in size. Aortic arch is normal in ca liber. IVC is normal in size and collapses >50% with inspiration. Pericardium There is no pericardial effusion. 2D Dimensions IVSD d PLAX 0.73 cm F: 0.6-1.0 LV Vol A2C d MOD 137.4 mL LVPW d PLAX 0.81 cm F: 0.6 - 1.0 LV Vol A4C d MOD 140.2 mL LVID d PLAX 4.88 cm F: 3.8 - 5.2 LA vol/ BSA A2C s A-L 51.7 mL/m2 LVDs 3.53 cm F: 2.2 - 3.5 LA vol/ BSA A4C s A-L 38.9 mL/m2 Ao Root d 2.81 cm F: 2.7 - 3.3 LA Vol/ BSA Biplane s A-L 44.0 mL/m2 Ao Asc Diam d 2.94 cm F: 2.3 - 3.1 LA Area A4C s MOD 26.75 cm2 LV EF Teichholz 53.0 % LA Area A2C s MOD 31.05 cm2 LVEF (Uribe's) 53.04 % F: 54 - 74 LV EF A4C MOD 52.8 % LV Volume 100.22 mL F: 46 - 106 LV EF A2C MOD 52.8 % LV Volume Index 41.75 mL/m2 F: 29 - 61 LV EF Biplane MOD 53.0 % LV Vol Biplane MOD 141.4 mL SV 74.87 mL FS 27.33 % SV Index 31.26 mL/m2 M-Mode TAPSE 3.03 cm (M/F) >1.7 LV Diastology MV E' medial 0.105 (>0.07 m/s) E/A Ratio 1.1 LV E/e MED 7.10 (<14) MV E Vmax 0.75 (0.4-1.3 m/s) MV E' lateral 0.137 (>0.1 m/s) MV A Vmax 0.70 (0.4-1.3 m/s) LV E/e LAT 5.45 (<14) MV E/A Ratio 1.03 MV E/E' medial 7.11 MV E/E' lateral 5.46 Aortic Valve LVOT Area 3.42 cm2 AoV Area Vmax 2.89 cm2 LVOT Vmax 1.41 m/s AoV Area/ BSA (Vmax) 1.21 cm2/m2 LVOT Mean Young. 1.01 m/s ARMANDO Mean Young. 2.89 cm2 LVOT Peak Grad 7.9 mmHg ARMANDO Mean Young. Index 1.21 cm2/m2 LVOT Mean Grad 4.4 mmHg LVOT VTI 0.234 m LVOT Diam s 2.05 cm AoV Vmax 1.66 m/s Velocity Ratio 0.85 AoV Mean Young. 1.20 m/s AoV Peak Grad 11.1 mmHg LVOT SV 80.14 mL AoV Mean Grad 6.3 mmHg AoV VTI 0.302 m AoV Area VTI 2.65 cm2 AoV Area/ BSA (VTI) 1.11 cm/m2 Mitral Valve MV DT 234 (160-240 msec) MV PHT 68 msec MV Area PHT 3.24 cm2 MV VTI 0.249 m MV Area VTI 3.22 (4.0-6.0 cm2) Pulmonary Valve PV Vmax 1.34 (0.5-1.5 m/s) RVOT Peak Gr. 3.30 mmHg PV Peak Grad 7.1 mmHg RVOT Mean Gr. 1.45 mmHg PV Mean Grad 4.1 mmHg RVOT VTI 0.154 m PV VTI 0.206 m RVOT Vmax 0.91 m/s Tricuspid Valve RA Pressure 3.00 mmHg
[2023-05-11] MEDS: Enoxaparin 40 MG/0.4 ML SYR SC ×2 (09:37→22:26)
[2023-05-11] MEDS: Buprenorphine/Naloxone 8 mg/2 mg FILM 1 EACH SL (09:37)
[2023-05-11] MEDS: Cholecalciferol (Vitamin D3) 1,000 UNIT TAB 2000 UNITS PO (09:38)
[2023-05-11] MEDS: Nicotine 21 MG/24 HR PATCH TD (09:38)
[2023-05-11] MEDS: Ascorbic Acid 500 MG TAB 1000 MG PO ×2 (09:38→22:26)
[2023-05-11] MEDS: Normal Saline Flush 10 ML SYR IVP ×2 (09:39→22:25)
[2023-05-11] MEDS: DOXYCYCLINE 100 MG in Normal Saline 100 ML IVPB ×2 (10:31→22:26)
[2023-05-11] MEDS: cefTRIAXone 2 GM/50 ML BAG IVPB (11:52)
--- NOTE | 2023-05-11 11:52 | W.PM.PROGNOT ---
Date of Service Date of service: 05/11/23 Time of Service: 11:52 Assessment and Plan Assessment and plan (1) COPD with acute exacerbation: Status: Acute Assessment and plan: Combination of COPD exacerbation along with CHF. Continue bronchodilators along with diuretics and steroids. I will check procalcitonin level but if not elevated then consider dc antibiotics. No pulmonary infiltrate was seen on her CT of her chest and she is not producing any purulent sputum and has been afebrile w/ normal WBC counts. Professional time spent interviewing and examining patient, discussion of goals of care with hospital team (care management, nursing and consulting professionals) was 30 minutes. (2) Acute respiratory failure with hypoxia and hypercarbia: Status: Acute Assessment and plan: as above. (3) Edema of both lower extremities: Status: Acute Assessment and plan: Suspect that she probably has some right-sided heart failure secondary to her underlying COPD +/- ISABELLE. 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 Although CTA did not show any large PE, she is at risk for DVT/PE, as such I have put her on higher dose lovenox 40 mg SC Q12h. Venous duplex scan of her legs done, results pending (7) Hypertension: Status: Chronic Assessment and plan: Patient is not currently on antihypertensive medications. (8) DVT prophylaxis: Status: Resolved Assessment and plan: Enoxaparin 40 mg subcutaneously every 12 hours (9) Discharge planning issues: Status: Acute Assessment and plan: patient is full code per my discussion yesterday. Patient intends to return home when medically stable. will consult P.T. to evaluate her strength/mobility and make recommendations. May need HH services upon discharge Subjective Subjective Interval history since last seen: Carmen feels much improved. Not coughing and not dyspneic at rest or with prolonged conversations. No CP. No sputum production. Exam Narrative Exam Narrative: Morbidly obese redheaded female sitting up in bed talking on her cell phone she is alert and oriented person place time circumstance no acute respiratory distress. Currently on 2 L/min per nasal cannula. SPO2 running 90 to 94%. Lungs with bibasilar rales no rhonchi or wheezing Heart is regular rate and rhythm Abdomen obese soft and nontender Lower extremities with 2+ pitting edema along with chronic skin changes from chronic stasis with elephant like skin with some superficial ulceration over the back of the right leg. Edema has gone down since going on IV Lasix.Patient has had urine output of over 2500 mL since yesterday. Objective Last Vital Signs Temp 36.9 C 05/11/23 09:08 Pulse 77 05/11/23 11:26 Resp 16 05/11/23 11:26 BP 137/74 05/11/23 11:26 Pulse Ox 94 05/11/23 11:26 Laboratory Results - last 24 hr 05/10/23 05/10/23 05/10/23 11:00 11:37 11:41 WBC RBC Hgb Hct MCV MCH MCHC RDW Plt Count MPV Immature Gran % Neutrophils % Lymphocytes % Monocytes % Eosinophils % Basophils % Nucleated RBC % Absolute Neutrophils Absolute Lymphocytes Absolute Monocytes Absolute Eosinophils Absolute Basophils D-Dimer 1178 H VBG pH VBG pCO2 VBG pO2 VBG HCO3 VBG Total CO2 VBG O2 Saturation VBG Base Excess VBG Lactate Sodium Potassium Chloride Carbon Dioxide Anion Gap BUN Creatinine Est GFR (CKD-EPI 2020) Glucose Hemoglobin A1c Calcium Total Bilirubin AST ALT Alkaline Phosphatase Creatine Kinase Troponin I NT-Pro-B Natriuret Pep Total Protein Albumin Triglycerides Total Cholesterol LDL Cholesterol, Calc HDL Cholesterol Urine Color Brown Urine Clarity Cloudy Urine pH Ur Specific [place] 1.022 Urine Protein Color Interference Urine Ketones Color Interference Urine Blood Color Interference Urine Nitrite Color Interference Urine Bilirubin Color Interference Urine Urobilinogen Color Interference Ur Leukocyte Esterase Color Interference Urine RBC >50 H Urine WBC Not Applicable Ur Epithelial Cells Not Applicable Urine Crystals Not Applicable Urine Bacteria Not Applicable Urine Mucus Not Applicable Ur Culture Indicated? Yes Urine Glucose Color Interference COVID-19 Source Nasopharynx SARS-CoV-2 (PCR) Negative Influenza Type A (PCR) Negative Influenza Type B (PCR) Negative RSV (PCR) Negative 05/10/23 05/10/23 05/10/23 12:41 13:07 16:00 WBC RBC Hgb Hct MCV MCH MCHC RDW Plt Count MPV Immature Gran % Neutrophils % Lymphocytes % Monocytes % Eosinophils % Basophils % Nucleated RBC % Absolute Neutrophils Absolute Lymphocytes Absolute Monocytes Absolute Eosinophils Absolute Basophils D-Dimer VBG pH 7.29 L Cancelled VBG pCO2 65 H* Cancelled VBG pO2 39 Cancelled VBG HCO3 31 H Cancelled VBG Total CO2 29 Cancelled VBG O2 Saturation 72 Cancelled VBG Base Excess 5 H Cancelled VBG Lactate Sodium Potassium Chloride Carbon Dioxide Anion Gap BUN Creatinine Est GFR (CKD-EPI 2020) Glucose Hemoglobin A1c Calcium Total Bilirubin AST ALT Alkaline Phosphatase Creatine Kinase Troponin I < 50 NT-Pro-B Natriuret Pep Total Protein Albumin Triglycerides Total Cholesterol LDL Cholesterol, Calc HDL Cholesterol Urine Color Urine Clarity Urine pH Ur Specific [place] Urine Protein Urine Ketones Urine Blood Urine Nitrite Urine Bilirubin Urine Urobilinogen Ur Leukocyte Esterase Urine RBC Urine WBC Ur Epithelial Cells Urine Crystals Urine Bacteria Urine Mucus Ur Culture Indicated? Urine Glucose COVID-19 Source SARS-CoV-2 (PCR) Influenza Type A (PCR) Influenza Type B (PCR) RSV (PCR) 05/10/23 05/10/23 05/10/23 17:12 17:12 17:12 WBC RBC Hgb Hct MCV MCH MCHC RDW Plt Count MPV Immature Gran % Neutrophils % Lymphocytes % Monocytes % Eosinophils % Basophils % Nucleated RBC % Absolute Neutrophils Absolute Lymphocytes Absolute Monocytes Absolute Eosinophils Absolute Basophils D-Dimer VBG pH 7.33 VBG pCO2 57 H VBG pO2 45 VBG HCO3 30 H VBG Total CO2 28 VBG O2 Saturation 82 VBG Base Excess 4 H VBG Lactate 1.7 H Sodium Potassium Chloride Carbon Dioxide Anion Gap BUN Creatinine Est GFR (CKD-EPI 2020) Glucose Hemoglobin A1c Calcium Total Bilirubin AST ALT Alkaline Phosphatase Creatine Kinase 139 Troponin I NT-Pro-B Natriuret Pep Total Protein Albumin Triglycerides Total Cholesterol LDL Cholesterol, Calc HDL Cholesterol Urine Color Urine Clarity Urine pH Ur Specific [place] Urine Protein Urine Ketones Urine Blood Urine Nitrite Urine Bilirubin Urine Urobilinogen Ur Leukocyte Esterase Urine RBC Urine WBC Ur Epithelial Cells Urine Crystals Urine Bacteria Urine Mucus Ur Culture Indicated? Urine Glucose COVID-19 Source SARS-CoV-2 (PCR) Influenza Type A (PCR) Influenza Type B (PCR) RSV (PCR) 05/10/23 05/11/23 05/11/23 17:12 06:21 06:21 WBC 6.07 RBC 4.06 Hgb 12.8 Hct 38.2 MCV 94 MCH 31.5 MCHC 33.5 RDW 13.2 Plt Count 220 MPV 9.1 Immature Gran % 0.7 Neutrophils % 83.7 Lymphocytes % 13.3 Monocytes % 2.1 Eosinophils % 0.0 Basophils % 0.2 Nucleated RBC % 0.0 Absolute Neutrophils 5.08 Absolute Lymphocytes 0.81 L Absolute Monocytes 0.13 Absolute Eosinophils 0.00 Absolute Basophils 0.01 D-Dimer VBG pH VBG pCO2 VBG pO2 VBG HCO3 VBG Total CO2 VBG O2 Saturation VBG Base Excess VBG Lactate Sodium 139 Potassium 4.0 Chloride 102 Carbon Dioxide 33.6 H Anion Gap 3.4 BUN 12 Creatinine 0.8 Est GFR (CKD-EPI 2020) 85.35 Glucose 135 H Hemoglobin A1c Calcium 8.9 Total Bilirubin 0.4 AST 16 ALT 19 Alkaline Phosphatase 91 Creatine Kinase Troponin I NT-Pro-B Natriuret Pep 286 Total Protein 7.2 Albumin 3.3 L Triglycerides 36 Total Cholesterol 170 LDL Cholesterol, Calc 95 HDL Cholesterol 68 Urine Color Urine Clarity Urine pH Ur Specific [place] Urine Protein Urine Ketones Urine Blood Urine Nitrite Urine Bilirubin Urine Urobilinogen Ur Leukocyte Esterase Urine RBC Urine WBC Ur Epithelial Cells Urine Crystals Urine Bacteria Urine Mucus Ur Culture Indicated? Urine Glucose COVID-19 Source SARS-CoV-2 (PCR) Influenza Type A (PCR) Influenza Type B (PCR) RSV (PCR) 05/11/23 05/11/23 06:21 06:21 WBC RBC Hgb Hct MCV MCH MCHC RDW Plt Count MPV Immature Gran % Neutrophils % Lymphocytes % Monocytes % Eosinophils % Basophils % Nucleated RBC % Absolute Neutrophils Absolute Lymphocytes Absolute Monocytes Absolute Eosinophils Absolute Basophils D-Dimer VBG pH 7.39 VBG pCO2 56 H VBG pO2 118 VBG HCO3 34 H VBG Total CO2 30 H VBG O2 Saturation 98 VBG Base Excess 9 H VBG Lactate Sodium Potassium Chloride Carbon Dioxide Anion Gap BUN Creatinine Est GFR (CKD-EPI 2020) Glucose Hemoglobin A1c 4.9 Calcium Total Bilirubin AST ALT Alkaline Phosphatase Creatine Kinase Troponin I NT-Pro-B Natriuret Pep Total Protein Albumin Triglycerides Total Cholesterol LDL Cholesterol, Calc HDL Cholesterol Urine Color Urine Clarity Urine pH Ur Specific [place] Urine Protein Urine Ketones Urine Blood Urine Nitrite Urine Bilirubin Urine Urobilinogen Ur Leukocyte Esterase Urine RBC Urine WBC Ur Epithelial Cells Urine Crystals Urine Bacteria Urine Mucus Ur Culture Indicated? Urine Glucose COVID-19 Source SARS-CoV-2 (PCR) Influenza Type A (PCR) Influenza Type B (PCR) RSV (PCR) Time Spent with Patient Time Spent with Patient: 25-34 minutes Time was spent: preparing to see the patient(eg.review tests), ordering medications,tests, procedures, referring, communicating with other health veterinarian laboratory animal care, indepentently interpreting results, counseling the patient and care coordination
[2023-05-11 12:22] LABS: Lab Add On Test DONE
[2023-05-11 12:38] LABS: C-Reactive Protein 1.52 mg/dL (0.0-0.3)
--- NOTE | 2023-05-11 12:49 | INITIAL_ITS ---
Date of service: 05/11/23 Time of Service: 12:49 Care Management Initial Assmt Initial Assessment REASON FOR HOSPITALIZATION:: COPD with acute exacerbation, Venous stasis dermatitis, Bilateral LE Edema PREVIOUS FUNCTIONAL STATUS/SOCIAL/FAMILY SUPPORTS:: Carmen has an apartment in [facility]. Her daughter Jeri, recently moved to [facility] from [place] and is staying with her. Daughter Kaya lives in town and is also supportive. She drives occasionally but her daughter's provide transportation. Carmen is disabled, receives SSDI, [employer] and is independent at baseline. She denies any community or financial concerns at this time. CURRENT FUNCTIONAL STATUS:: Carmen was sitting in her chair when CM met with her. She is awake and engages in conversation. Carmen states that she had been searching for her Daughter Jeri for many years and finally found her homeless in [place]. Jeri is now staying with her and trying to get her life somewhat in order. Carmen is currently trying to reach social security by phone to reschedule her appointment, which was scheduled earlier in the day. ADVANCE DIRECTIVES:: None on file. Has patient been provided with info about the portal/API?: Yes Did the patient sign up for the portal?: No CODE STATUS:: Full Code INSURANCE COVERAGE / FINANCIAL ISSUES:: Medicaid CURRENT HOME/COMMUNITY SERVICES/EQUIPMENT:: [facility] Home O2-[facility] PRIMARY CARE PHYSICIAN:: Jaime Bangura POTENTIAL DISCHARGE NEEDS:: Evaluation for further needs PATIENT/FAMILY EDUCATION NEEDS:: Review discharge instructions, limitations and plan to follow up with community providers. Discuss ask me three. ANTICIPATED BARRIERS TO DISCHARGE:: None identified at this time. TRANSPORTATION:: Via private vehicle by family. PLAN:: Carmen is admitted to the ICU for treatment of acute hypoxemic and hypercarbic respiratory failure, COPD exacerbation. Anticipate, Carmen will discharge home with [facility] (if needed). PT consult ordered, awaiting recommendations. CM will follow. PFSH All Active Problems (Updated 05/11/23 @ 12:14 by Tad Austin MD) Discharge planning issues (Acute) Acute respiratory failure with hypoxia and hypercarbia (Acute) COPD with acute exacerbation (Acute) Community acquired pneumonia of left lung (Acute) Back pain (Acute) Venous stasis dermatitis (Acute) Smoking (Acute) Hypertension (Chronic) Vitamin D deficiency (Acute) Dysuria (Acute) Lymphedema (Acute) Screening for colon cancer (Acute) Edema of both lower extremities (Acute) Multifocal pneumonia (Acute) Medical History (Updated 05/11/23 @ 12:14 by Tad Austin MD) COPD (chronic obstructive pulmonary disease) 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, on suboxone Hypoxia Morbid obesity Pneumonia due to 2019 novel coronavirus Pulmonary embolism (~12/16/21) SARS-CoV-2 positive Surgical History History of femur fracture hardware in femur Family History Mother Diabetes Father Hypertension Social History Smoking/Tobacco Use Status: Current every day Tobacco Type: cigarettes Smoking packs per day: 0.33 Smoking cigarettes per day: 6.6 and e-cigarettes Counseling given: provider counseling and support medications Smoking risk assessment performed?: Yes Alcohol Intake: former Drug use: Current Sobriety Substance use type: heroin Details: Currently on Suboxone Do you feel safe at home: Yes Do you feel safe in your relationship?: Yes
[2023-05-11 12:56] LABS: Procalcitonin < 0.1 ng/mL
[2023-05-11] MEDS: Ipratropium/Albuterol 4 GM 120 PUFF INH IH ×3 (13:41→19:34)
[2023-05-11] MEDS: Torsemide 20 MG TAB PO (14:08)
[2023-05-11] MEDS: predniSONE 20 MG TAB 40 MG PO (14:08)
--- NOTE | 2023-05-11 14:09 | RESPIRATORY ---
RT spoke with patient concerning the use of her oxygen along with lasix. Patient was unsure on which DME provides her with supplies along with oxygen. RT called [facility] and [facility] to discuss to who was the patient's DME: The current DME is [facility] and her baseline is 1L at home. During conversation, patient stated she was worked up for a PAP device and has not followed up currently since there was a discussion. RT informed patient that use of lasix along with a PAP device would assist in patient not become fluid overload and admitted in to hospital.
--- NOTE | 2023-05-11 14:38 | PHA.REVIEW2 ---
Pharmacy Admission Review Admission Clinical Review Admission Pharmacy Review: (Updated 05/11/23 @ 12:14 by Tad Asutin MD) Discharge planning issues (Acute) Acute respiratory failure with hypoxia and hypercarbia (Acute) COPD with acute exacerbation (Acute) Community acquired pneumonia of left lung (Acute) Venous stasis dermatitis (Acute) Edema of both lower extremities (Acute) aspirin Allergy (Unknown, Verified 05/10/23 10:01) codeine Allergy (Unknown, Verified 05/10/23 10:01) Resuscitation Status Full Code Height 5 ft 4 in Weight 142.4 kg Pharmacy Admission Review Renal Dosing Renal Dosing: BUN 12 mg/dL (7-18) 05/11/23 06:21 Creatinine 0.8 mg/dL (0.55-1.02) 05/11/23 06:21 Medications needing adjustments: Reviewed (Crcl ~108.6 mL/min current meds okay) Anticoagulation Anticoagulation: Hgb 12.8 g/dL (11.2-15.7) 05/11/23 06:21 Hct 38.2 % (36.0-46.0) 05/11/23 06:21 Plt Count 220 10^3/uL (130-400) 05/11/23 06:21 Creatinine 0.8 mg/dL (0.55-1.02) 05/11/23 06:21 DVT Prophylaxis: Reviewed Medications: Enoxaparin Therapeutic Anticoagulation: N/A Opiate Usage Evaluate Pain Scale/Pains Meds: Reviewed Scheduled Bowel Reg ordered if on Opiates?: No (has PRN meds ordered) Relevant Labs Relevant Labs: Sodium 139 mmol/L (136-145) 05/11/23 06:21 Potassium 4.0 mmol/L (3.5-5.1) 05/11/23 06:21 Chloride 102 mmol/L (98-107) 05/11/23 06:21 C-Reactive Protein 1.52 mg/dL (0.0-0.3) H 05/11/23 06:21 Electrolytes, C-Reactive P, ESR: Reviewed DM Control DM Control: No DM noted in pt's medical history, A1c 4.9 today Cardiac Review Cardiac Review: Troponin I < 50 ng/L (<or=60) 05/10/23 13:07 NT-Pro-B Natriuret Pep 286 pg/mL (<300) 05/10/23 17:12 EF%, DENNIS's, B-Blockers, Diuretics: Reviewed (HR and BP have been mostly within normal limits since admission) Pharmacy Antibiotic Review Relevant Labs: Relevant Labs 05/11/23 05/11/23 06:21 06:21 C-Reactive Protein 1.52 H Procalcitonin < 0.1
--- NOTE | 2023-05-11 15:00 | WOUNDCONS ---
- If Service Date Differs Date of service: 05/11/23 Time of Service: 15:00 Wound Initial Evaluation Narrative: Patient is a 57 yof. She presents to the ED here after experiencing in her words, not being able to breath. She was admitted for COPPD exacerbation. Patient does state she has not been 100 % compliant with her medications, but told this scribe she is now more determined to do better. Patient is still in the ICU, she appears relaxed, she is able to answer questions in complete sentences, without stopping to take a breath. Reviewing the order for consult, it is for stasis ulcers on both legs. Both legs have 2 + edema with elephant like keratosis on both legs, there is an open area on the posterior right legs that is odiferous, and bleeding. Patient stated she does walk occasionally, but uses a walker if she is going to be out and ambulating. Reviewed patient's labs, a slightly elevated CRP was noted, but most other labs have improved. Patient does not feel her diet is out of line, but is amenable to a dietary consult. Provider notes, and other pertinent information were reviewed, patient consents to a wound consult Body Four View: 1 - stasis ulcer - Wound Bilateral Tib/Fib(lower leg) Wound Type: Other (Keratosis), Partial Thickness Wound General Appearance: Reddened Wound Bed Greatest Portion: Dusky Red Wound Surrounding Tissue Appearance: Dark Red, Edematous-pitting Wound Drainage Amount: None Wound Drainage Odor: None/Absent Wound Drainage Description: No drainage Wound Topical Solution/Irrigant: Antibiotic Irrigant Wound Debridement Method: Other (Debrisoft) Wound Debridement Result: Other ( tissue removed) Wound Debridement Amount of Tissue Removed: Minimal Right Posterior Tib/Fib(lower leg) Wound Type: Statis Ulcer Wound General Appearance: Reddened, Unapproximated Wound Bed Greatest Portion: Dusky Red Wound Surrounding Tissue Appearance: Dark Red Wound Length: 15 cm Wound Width: 3.5 cm Wound Depth: 0.2 cm Wound Drainage Amount: Minimal Wound Drainage Odor: Strong, Foul Odor Wound Drainage Description: Other (yellow) Wound Topical Solution/Irrigant: Antibiotic Irrigant Wound Debridement Method: Other (Debrisoft) Wound Debridement Result: Other ( tissue removed, some minor bleeding noted) Wound Debridement Amount of Tissue Removed: Minimal - Circulation, Sensation, Motion Edema Degree: 2+ Peripheral Pulse Strength: Weak Capillary Refill: Less than 3 seconds Sensation Description: Within Normal Limits Skin Temperature: Warm Skin Color: Normal - Pain Pain Level: 2 Pain Description: Acute Pain Duration (Hours): 0 (with debridement) Pain Duration/Frequency: Other (with debridement) Patient does present with swollen legs. In light of patient presenting with heart failure, I am hesitant to apply compression at this time. However as the patient's condition improves, it would not be a bad idea in the future. - Photo Photo: - Treatment/Dressing Change Topicals/Ointments: Other (Ammonium Lactate) Cleanse With: Anasept Dressing Comment: elevate legs as tolerated - Nutrition Education Reviewed Nutrition Education: Yes - Recomendation Recomendation:: [place] legs with Anasept spray, allow to dwell for 2 minutes. Scrub legs with Debrisoft sponge. Pat dry with gauze. Allow legs to fully dry. Apply Ammonium Lactate lotion to both legs. Keep legs elevated as patient can tolerate. Perform twice daily. Physcian/Nurse Practioner Notified: Yes (Dr Austin) Referrals: Dietary Treatment Time - Time Total Time Spent with Patient: 60 - Patient Will be Seen Weekly Treatment: bid - For: For:: 1 week
--- NOTE | 2023-05-11 15:40 | PHA.REVIEW2 ---
Pharmacy Admission Review - Admission Clinical Review (Last Updated 05/10/23 @ 16:46 by Tad Austin MD) Discharge planning issues (Acute) Acute respiratory failure with hypoxia and hypercarbia (Acute) COPD with acute exacerbation (Acute) Community acquired pneumonia of left lung (Acute) Venous stasis dermatitis (Acute) Edema of both lower extremities (Acute) aspirin Allergy (Unknown, Verified 05/10/23 10:01) codeine Allergy (Unknown, Verified 05/10/23 10:01) Resuscitation Status Full Code Height 5 ft 4 in Weight 142.4 kg - Renal Dosing Renal Dosing: BUN 12 mg/dL (7-18) 05/11/23 06:21 Creatinine 0.8 mg/dL (0.55-1.02) 05/11/23 06:21 Medications needing adjustments: Reviewed (Crcl ~108.6 mL/min current meds okay) - Anticoagulation Anticoagulation: Hgb 12.8 g/dL (11.2-15.7) 05/11/23 06:21 Hct 38.2 % (36.0-46.0) 05/11/23 06:21 Plt Count 220 10^3/uL (130-400) 05/11/23 06:21 Creatinine 0.8 mg/dL (0.55-1.02) 05/11/23 06:21 DVT Prophylaxis: Reviewed Medications: Enoxaparin Therapeutic Anticoagulation: N/A - Opiate Usage Evaluate Pain Scale/Pains Meds: Reviewed Scheduled Bowel Reg ordered if on Opiates?: No (has PRN meds ordered) - Relevant Labs Sodium 139 mmol/L (136-145) 05/11/23 06:21 Potassium 4.0 mmol/L (3.5-5.1) 05/11/23 06:21 Chloride 102 mmol/L (98-107) 05/11/23 06:21 C-Reactive Protein 1.52 mg/dL (0.0-0.3) H 05/11/23 06:21 Electrolytes, C-Reactive P, ESR: Reviewed - DM Control DM Control: Glucose 135 mg/dL (74-106) H 05/11/23 06:21 Hemoglobin A1c 4.9 % (<5.7) 05/11/23 06:21 DM Control: Reviewed (No DM noted in medical history, A1c today 4.9) - Cardiac Review Cardiac Review: Troponin I < 50 ng/L (<or=60) 05/10/23 13:07 NT-Pro-B Natriuret Pep 286 pg/mL (<300) 05/10/23 17:12 BP, HR, EF%: Reviewed (BP and HR have been within normal limits most of admission so far.) - Qtc Review QTc: Reviewed (QTc 437 on admission) - IV to PO Switch IV Medications: Reviewed - Home Meds Home Med List reviewed: Intervened (Suboxone dose verified with [facility] this morning, buprenorphine/naloxone 20/5 mg PO daily) - Current meds Current Medication Order Review: Reviewed - Comments Comments/Follow Ups: Watch VS, labs, for culture results and for med changes. Antibiotic Review - Pharmacy Antibiotic Review Pharmacy Antibiotic Activity: C/S review, Reviewed, no change Relevant Labs: Relevant Labs 05/11/23 05/11/23 06:21 06:21 C-Reactive Protein 1.52 H Procalcitonin < 0.1 - Antibiotic Information Antibiotic Review Info: Urine culture growing gram negative and gram positive deana. Ceftriaxone and doxycycline (day 2) ordered empirically until concomittant superimposed respiratory infection can be ruled out per H&P.
[2023-05-11] MEDS: Buprenorphine/Naloxone 12 mg/3 mg FILM 1 EACH SL (18:51)
[2023-05-11] MEDS: Lachydrin 12% LOTION 225 GM BTL TP (23:00)
[2023-05-11 23:26] LABS: Legionella Ag Detection Urine Negative (Negative)
[2023-05-12] VITALS (7 sets, daily range): BP systolic 130–155; BP diastolic 73–96; PULSE 69–75; RESP 20; TEMP 36.3; O2SAT 90–97
[2023-05-12] MEDS: Mylanta Suspension 30 ML CUP PO ×2 (07:30→07:55)
--- NOTE | 2023-05-12 07:30 | RT.EKG_ITS ---
APPROVED REPORT Exam: Resting ECG Reason for Exam: chest pain Patient Location: I HR:63 bpm ECG Measurements Heart Rate 63 AXIS AZ 113 P 64 QRSd 101 QRS 13 QT 402 T 36 QTc 412 Conclusion Sinus rhythm...normal P axis, V-rate 50- 99 Atrial premature complexes...SV complexes w/ short R-R intvls Borderline short AZ interval...AZ int <120mS
--- NOTE | 2023-05-12 07:35 | PGE_ITS ---
Date of Service Date of service: 05/12/23 Time of Service: 07:35 Assessment and Plan Assessment and plan (1) COPD with acute exacerbation: Status: Acute Assessment and plan: Combination of COPD exacerbation along with CHF. Continue bronchodilators along with diuretics and steroids. No fevers or leukocytosis or elevation of her procalcitonin. Ceftriaxone dc yesterday. I will also dc her doxycycline. Patient is now med/surg status. Her oxygen requirements have improved. No longer requiring supplemental oxygen. I would dc her home however in light of her CP event, I will watch her today, check serial troponin levels. I have added protonix for GI protection while on prednisone. Will check ambulatory pulse oximetry prior to her discharge. I think she can be switched to oral diuretics today. Professional time spent interviewing and examining patient, discussion of goals of care with hospital team (care management, nursing and consulting professionals) was 45 minutes. (2) Acute respiratory failure with hypoxia and hypercarbia: Status: Acute Assessment and plan: as above. (3) Edema of both lower extremities: Status: Acute Assessment and plan: unclear etiology of her chronic leg edema, probably chronic venous insufficiency and obesity, although still suspect ISABELLE. However she has no evidence for pulmonary hypertension and her echo parameters do not meet criteria for HFPEF, i.e. she has no LVH, she has normal regional wall motion, her IVS e' is 10.5 cm/s, lateral e' is 13.7 cm/s and her avg E/e' is 6.3, although no TR velocity was recorded, her PÉREZ however is increased at 44 mL/m2. Nevertheless she has responded to the iv diuretics. I will keep her on oral diuretics. 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 continue lovenox SC (7) Hypertension: Status: Chronic Assessment and plan: Patient is not currently on antihypertensive medications. (8) DVT prophylaxis: Status: Resolved Assessment and plan: Enoxaparin 40 mg subcutaneously every 12 hours (9) Discharge planning issues: Status: Acute Assessment and plan: patient is full code per my discussion yesterday. Patient intends to return home when medically stable. will consult P.T. to evaluate her strength/mobility and make recommendations. May need HH services upon discharge Subjective Subjective Interval history since last seen: Patient complaining of sudden chest discomfort this moring, substernal burning w/ radiation to her back but none in her arms/neck/jaw and no dyspnea w/ this. She denies any water brash symptoms. She has had this in the past and usually waits until it subsides on its own. Not necessarily associated w/ physical activity. Stat EKG was done and did not show any acute ischemic ST-T changes. CP improved w/ antacids. Nevertheless, will check troponin levels. I have added protonix to her regimen as she is on prednisone for her COPD. Also, this episode occurred after drinking some coffee, therefore I feel that likely this was dyspepsia. Exam Narrative Exam Narrative: Obese female alert and oriented person place time circumstance sitting up in bed does not appear to be in any acute distress. Complaining of burning substernal chest pain rating through to her back now alleviated after 2 doses of an acids. She is not acutely short of breath. Denies any aching in her neck jaw or arms. Lungs with diffuse end expiratory wheezes no rhonchi she has some bibasilar rales Heart is regular rate and rhythm Abdomen obese soft nontender no epigastric tenderness with palpation. Lower extremities with 2+ pitting edema along with chronic venous stasis skin changes with elephantiasis nostras verrucosa Objective Last Vital Signs Temp 36.3 C L 05/12/23 02:47 Pulse 69 05/12/23 07:27 Resp 20 05/12/23 02:47 BP 130/73 05/12/23 07:27 Pulse Ox 92 05/12/23 07:29 Laboratory Results - last 24 hr 05/11/23 05/11/23 05/11/23 06:21 06:21 06:21 C-Reactive Protein 1.52 H Procalcitonin < 0.1 Add-On Test Request DONE Reviewed Pertinent PMH: Yes Objective Narrative Objective Narrative: EKG normal sinus rhythm rate 63 bpm with occasional PACs no acute ST or T wave abnormalities. Time Spent with Patient Time Spent with Patient: 35-49 minutes Time was spent: preparing to see the patient(eg.review tests), ordering medications,tests, procedures, referring, communicating with other health wound care center consultant, indepentently interpreting results, counseling the patient and care coordination
[2023-05-12] MEDS: Ipratropium/Albuterol 4 GM 120 PUFF INH IH ×3 (07:50→16:48)
[2023-05-12] MEDS: Cholecalciferol (Vitamin D3) 1,000 UNIT TAB 2000 UNITS PO (07:55)
[2023-05-12] MEDS: Enoxaparin 40 MG/0.4 ML SYR SC (07:55)
[2023-05-12] MEDS: Nicotine 21 MG/24 HR PATCH TD (07:55)
[2023-05-12] MEDS: Torsemide 20 MG TAB PO (07:56)
[2023-05-12] MEDS: Ascorbic Acid 500 MG TAB 1000 MG PO (07:56)
[2023-05-12] MEDS: Buprenorphine/Naloxone 8 mg/2 mg FILM 1 EACH SL (07:56)
[2023-05-12] MEDS: predniSONE 20 MG TAB 40 MG PO (07:56)
[2023-05-12] MEDS: Pantoprazole 40 MG TABCR PO (08:00)
[2023-05-12] MEDS: Spironolactone 25 MG TAB PO (08:00)
--- NOTE | 2023-05-12 08:12 | PDOC.CMPRO ---
Date of service: 05/12/23 Time of Service: 08:12 Care Management Progress Note Progress Note Text Progress Note Text: S/O: Carmen is being closely monitored in the ICU. She is feeling better. Repeat troponin is pending, she may discharge later today depending on the result, per provider. CM will follow. DL A: 57 year old female admitted to [facility] on 05/10/23 for Acute Respiratory Failure. P: Carmen is admitted to the ICU for treatment of acute hypoxemic and hypercarbic respiratory failure, COPD exacerbation. Anticipate, Carmen will discharge home with [facility] (if needed). PT consult ordered, awaiting recommendations. CM will follow.
[2023-05-12 08:34] LABS: Anion Gap 5.2 mmol/L (3-11); BUN 21 mg/dL (7-18); CO2 35.8 mmol/L (21.0-32.0); CREATININE 0.9 mg/dL (0.55-1.02); Chloride 102 mmol/L (98-107); Glucose 87 mg/dL (74-106); Potassium 3.9 mmol/L (3.5-5.1); Sodium 143 mmol/L (136-145); Troponin I < 50 ng/L (<or=60)
[2023-05-12] MEDS: DOXYCYCLINE 100 MG in Normal Saline 100 ML IVPB (10:41)
[2023-05-12] MEDS: Lachydrin 12% LOTION 225 GM BTL TP (10:44)
--- NOTE | 2023-05-12 10:46 | PT.INIE ---
Date of service: 05/12/23 Time of Service: 10:30 PT Notes Visit Reasons: Acute on Chronic Hypercarbic and Hypoxemic RF, Physical Therapy Inpatient Initial Evaluation Date: 05/12/2023 Referring Doctor: Tad Austin MD PT Orders: PT CONSULT: Extended stay weakness Precautions: Fall. Standard. Activity as tolerated. Patient Profile/Admitting Diagnosis: Patient is a 57-year-old female who presented to the ED on 05/10/2023 due to bilateral lower extremity swelling and suspicion of reactive airway disease exacerbation. Patient is admitted for management of COPD exacerbation acute respiratory failure with hypoxia and hypercarbia, bilateral lower extremity edema secondary to right-sided heart failure, venous stasis dermatitis, and hypertension. PMHX: All Active Problems?(Updated 05/10/23 @ 16:46 by Tad Austin MD) Acute respiratory failure with hypoxia and hypercarbia (Acute) COPD with acute exacerbation (Acute) Community acquired pneumonia of left lung (Acute) Back pain (Acute) Venous stasis dermatitis (Acute) Smoking (Acute) Hypertension (Chronic) Vitamin D deficiency (Acute) Dysuria (Acute) Lymphedema (Acute) Screening for colon cancer (Acute) Edema of both lower extremities (Acute) Multifocal pneumonia (Acute) Medical History?(Updated 05/10/23 @ 16:46 by Tad Austin MD) COPD (chronic obstructive pulmonary disease) 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, on suboxoneHypoxia Morbid obesity Pneumonia due to 2019 novel coronavirus Pulmonary embolism (~12/16/21) SARS-CoV-2 positive Surgical History? History of femur fracture hardware in femur Social History/Home Situation: Lives on the third floor of an apartment building with an elevator to enter. Daughter lives with her. Independent with all aspects of ADLs prior to surgery. Still drives. Equipment Owned/DME: [employer] Subjective: Hoping to go home today. Feels a lot better. Has daughters who are willing to support her as needed. Objective: General Observation: Standing inside room when PT came in. No lines. Mental Status: Alert and oriented as to person, place, time, and purpose. Able to pay attention, focus, and respond appropriately. Pain: Denies Vital Signs: Closely monitored by nursing staff. ROM: Right Upper Extremity: Shoulder Flexion WFL. Shoulder abduction WFL. Elbow flexion WFL. Wrist flexion WFL. Functional opening and closing of hand WFL. Left Upper Extremity: Shoulder Flexion WFL. Shoulder abduction WFL. Elbow flexion WFL. Wrist flexion WFL. Functional opening and closing of hand WFL. Right Lower Extremity: Hip flexion WFL. Hip abduction WFL. Knee flexion WFL. Ankle dorsiflexion WFL. Ankle plantarflexion WFL. Left Lower Extremity: Hip flexion WFL. Hip abduction WFL. Knee flexion WFL. Ankle dorsiflexion WFL. Ankle plantarflexion WFL. Strength: Right Upper Extremity: Shoulder flexors 4/5. Shoulder abductors 4/5. Elbow flexors 5/5. Elbow extensors 5/5. Scientific Artist strong. Left Upper Extremity: Shoulder flexors 4/5. Shoulder abductors 4/5. Elbow flexors 5/5. Elbow extensors 5/5. Scientific Artist strong. Right Lower Extremity: Hip flexors 4/5. Hip abductors 4/5. Knee flexors 4/5. Knee extensors 4/5. Ankle dorsiflexors 4/5. Ankle plantarflexors 4/5. Left Lower Extremity: Hip flexors 4/5. Hip abductors 4/5. Knee flexors 4/5. Knee extensors 4/5. Ankle dorsiflexors 4/5. Ankle plantarflexors 4/5. Bed Mobility/Transfers: Rolling independent Supine to sit independent Sit to supine independent Sit to stand independent Stand to sit independent Bed to bedside commode independent Bedside commode to bed independent Bed to reclining chair independent Reclining chair to bed independent Gait: Instructed patient with level surface ambulation of 500 feet independently with no assistive device. Mild shortness of breath at end of walk that resolved with rest. Balance: Static Sitting: Normal Dynamic Sitting: Normal Static Standing: Good Dynamic Standing: Good Special Tests: Mobility Limitations Standardized Measure [facility] AM-PAC 6 clicks Basic Mobility Inpatient Short Form: Raw Score: 24 CMS Score: 0% deficit Informed Consent/Education: Patient was instructed in purpose of PT consult and plan of care. Agreeable to proceed with established PT POC to achieve personal goals. Assessment: Patient is independent with all mobility ADLs without the need for an assistive ambulatory device. No skilled services needed at this time. Patient is assessed [place] a 83058 low complexity based on the following: History: 57-year-old female with past medical history as indicated above Examination: As above Presentation: Stable Decision Makin low complexity Goals: N/A. PT evaluation only. Plan of Care/Treatment Plan: N/A. PT evaluation only. DISCHARGE RECOMMENDATIONS: [X] Home with no services. Home when medically cleared by hospitalist. [] Home with services [specify] [] Home with outpatient PT [] [] SNF for continued rehabilitation [] [] Retirement Care [] [] SNF versus LTC based on ability to participate and progress [] TREATMENT CODE/TIME: 88933 x 15 minutes beginning at 10:30 AM. Thank you for the opportunity to participate in the care of this patient. Deidre Carter PT, DPT, CLT [facility] [place], [place]
[2023-05-12 11:13] LABS: Troponin I < 50 ng/L (<or=60)
--- NOTE | 2023-05-12 11:53 | NUR.NOTE ---
Nursing Note: Accessed pt chart to determine EKG orders and if one needed to be deleted. One was deleted.
--- NOTE | 2023-05-12 17:49 | W.PM.DS.N ---
Date of service: 05/12/23 Time of Service: 17:49 DS: Diagnosis Discharge Diagnosis (1) COPD with acute exacerbation: Status: Acute Asessment and Plan: Acute hypoxemic and hypercarbic respiratory failure secondary to COPD plus or minus undiagnosed ISABELLE. Recommend follow-up outpatient PSG to evaluate for sleep apnea. Patient is recommended to refrain from vaping or using smoking products. Patient was discharged home on a taper dose of Medrol beginning at 32 mg/day x 2 days then decreasing to 24 mg/day x 2 days and then 60 mg/day x 2 days and finally 8 mg/day x 2 days. No antibiotics were prescribed upon discharge. She was transiently treated with ceftriaxone and doxycycline but when it was determined that she did not have pneumonia and showed no signs of infection antibiotics were discontinued. Patient was able to be successfully weaned from supplemental oxygen. (2) Acute respiratory failure with hypoxia and hypercarbia: Status: Acute Asessment and Plan: See above (3) Edema of both lower extremities: Status: Acute Asessment and Plan: Work-up for CHF was performed and patient was treated with IV Lasix and switch over to oral torsemide and spironolactone. Serial troponins were negative EKG showed no acute ischemic changes and an echocardiogram was performed and demonstrated normal left ventricular size and thickness with an EF of 60-65% with normal wall motion. RV was normal size and function. Left atrium is mildly dilated right atrium is normal in size and patient had no structural or hemodynamically significant valvular disease. Review of her diastolic parameters showed no evidence for diastolic heart failure as the patient had normal mitral inflow velocities and normal mitral annular tissue velocities. She had trace of tricuspid regurgitation but PA pressures could not be obtained from her echo hemodynamics. TR velocity was not reported out. Venous duplex scan of her legs was performed and no obvious DVT was seen although it was a limited study due to her body habitus and abundant edema making visualization less than optimal of the distal femoral veins bilaterally as well as the veins in her calves. (4) Venous stasis dermatitis: Status: Chronic (5) Drug abuse in remission: (6) Pulmonary embolism: Asessment and Plan: CTA of the chest was performed on admission showed no acute central pulmonary emboli. However opacification of her pulmonary arteries distal to this was suboptimal and compounded by respiratory motion artifact. She showed no evidence of right heart strain on her CT scan and no evidence of aortic dissection or pericardial effusion. (7) Hypertension: Status: Chronic (8) DVT prophylaxis: Status: Resolved Asessment and Plan: Patient was treated with subcutaneous Lovenox 40 mg subcu BID (9) Discharge planning issues: Status: Resolved Asessment and Plan: Patient was discharged home with no home health services prescribed. Discharge Plan Disposition Patient Disposition: Home Condition: Good Discharge Details Reason For Visit: Acute on Chronic Hypercarbic and Hypoxemic RF, Admit Date/Time: 05/10/23 14:16 Admit Provider: Tad Austin Attending Provider: Tad Austin [facility]: 57-year-old female with COPD oxygen dependent who continues to vape tobacco presented to the emergency department acutely dyspneic and hypoxemic with oxygen saturation is a 75% on room air when EMS arrived at her home. She was placed on nonrebreather mask given 3 nebulized bronchodilators given methylprednisolone 125 mg IV push. On arrival to ED she was in respiratory extremis with respiratory rate 36 bpm using accessory respiratory muscles and tachycardic. She was treated BiPAP given additional DuoNeb treatments chest x-ray suggested possible left lung infiltrate and she was empirically started on antibiotics with ceftriaxone and doxycycline. She was found to have elevated D-dimer therefore CT of the chest was performed that did not show any pulmonary embolism nor did it show any acute pulmonary infiltrates. Patient was admitted to the intensive care unit for treatment of acute hypoxemic and hypercarbic respiratory failure as her VBG showed a PCO2 of 66 pH 7.28 and a PO2 of 51. Patient did very well was weaned off the BiPAP and switched to nasal cannula. She was kept on corticosteroids which were then transition from IV steroids to oral steroids. She will be discharged home on a taper dose of oral methylprednisolone. Patient never had a fever and never had a leukocytosis and a procalcitonin levels were normal. As she was not coughing up any purulent sputum and had no evidence of parenchymal infiltrates or pleural effusions antibiotics were discontinued. Of note there was some mild increased markings in the left upper lobe adjacent to the upper aspect of the major fissure and it is recommended that a follow-up study be done to ensure stability. Patient was also felt to be in congestive heart failure as she had 3+ pitting edema of her legs. This has been a chronic finding for her is led to stasis dermatitis changes including elephantiasis nostras verrucosa. Patient was treated with IV Lasix and then switch over to oral torsemide and spironolactone. On the day of discharge patient had episode of substernal chest burning that radiated through to her back. Repeat EKG was performed showed no acute ischemic changes serial troponins were done on the day of discharge and came back normal x2 sets. Her chest pain was completely relieved with antiacids and she was started on Protonix in the hospital but will be switched to Nexium as an outpatient. Patient was discharged in stable and markedly improved condition. Patient is advised to refrain from smoking or vaping and she should take her Medrol Dosepak as directed. No antibiotics were prescribed at discharge. Follow-up with Dr. Bangura in the next week. Home Meds and New Rx's Prescriptions: New esomeprazole magnesium [Nexium Packet] [address] mosquera susp in packet 40 mg PO DAILY Qty: 30 0RF methylprednisolone 8 mg tablet See Rx Instructions .ROUTE .COMPLEX Qty: 20 0RF Rx Instructions: 8 mg orally one tablet qid x 2d, tid x 2d, then bid x 2d, 1 daily x 2d spironolactone 25 mg Tablet 25 mg PO DAILY Qty: 30 0RF furosemide [Lasix] 40 mg tablet 40 mg PO DAILY Qty: 30 0RF Continued buprenorphine-naloxone [Suboxone] 8-2 mg Film 1 film sublingual DAILY buprenorphine-naloxone [Suboxone] 12-3 mg Film 1 film sublingual DAILY ascorbic acid (vitamin C) [Vitamin C] 500 mg Tablet 1,000 mg PO BID Qty: 0 0RF cholecalciferol (vitamin D3) 25 mcg (1,000 unit) Tablet 2,000 units PO DAILY Qty: 0 0RF Combivent Respimat 20-100 mcg/actuation Mist 1 puff inhalation QID Qty: 1 0RF Discharge Instructions Instructions: Chronic Lung Disease and Infection Prevention (DC), Energy Conservation Techniques (DC), Dyspnea Scale and Exercise (DC) Additional Instructions: you have been given a prescription for prednisone, please take in tapered fashion and follow up w/ your PCP in the next week. You have also been given prescriptions for diuretic pills to help w/ your chronic leg edema. Please take as directed and have your PCP check repeat labs within the next week, to include a BMP to assess your electrolytes and kidney function while on the diuretics. You were also put on Nexium for your reflux symptoms of epigastric abdominal/chest pain which resolved w/ antacids. You should remain on the nexium for the duration that you are taking steroids to protect you from any ulcers. Discuss w/ your provider whether or not you need referral for an EGD (scope to look at the inside of your esophagus and stomach). Please refrain from smoking or vaping. Neither are good for your lungs and can worsen your COPD Referrals: Jaime Bangura [Primary Care Provider] - Activity:: Activity as Tolerated Equipment/Supplies:: No Equipment Needed Diet:: Low Sodium Discharge Orders Discharge Orders: Discharge Order (Routine); Ordered 05/12/23 Ordered By: Tad Austin Discharge Data Discharge Date/Time-TO BE ENTERED AT DEPARTURE: 05/12/23 18:40 DS: Summary Time Spent with Patient providing and/or coordinating discharge services: Greater than 30 minutes Specific discharge activities: Interview/exam of patient; review of discharge instructions, completion of prescriptions/discharge instructions; discussion w/ nursing and CM; documentation of hospital visit Status at Discharge Functional status at discharge: independent ambulation Overall status at discharge: patient is progressing back to baseline Mental Status: mental status grossly normal Speech and Movement: speech and movement normal Mood: congruent mood Affect: normal affect Exam Narrative Exam Narrative: Obese female alert and oriented person place time circumstance sitting up in her chair, she denies any CP now. she is desiring to return home today. Lungs with diffuse end expiratory wheezes no rhonchi she has some bibasilar rales Heart is regular rate and rhythm Abdomen obese soft nontender no epigastric tenderness with palpation. Lower extremities with 2+ pitting edema along with chronic venous stasis skin changes with elephantiasis nostras verrucosa Psych Mental Status: mental status grossly normal Speech and Movement: speech and movement normal Mood: congruent mood Affect: normal affect DS: Data Vitals/I&O Vitals and I&O: Vital Signs Temperature 36.3 C L 05/12/23 02:47 Temperature Source Temporal Artery Scan 05/12/23 02:47 Pulse 69 05/12/23 08:01 Pulse Rhythm Regular 05/12/23 16:09 Pulse 85 05/11/23 20:17 Respiratory Rate 20 05/12/23 02:47 Respiratory Effort Normal 05/12/23 16:09 Respiratory Depth Normal 05/12/23 16:09 Respiratory Pattern Normal 05/12/23 16:09 Blood Pressure 149/83 H 05/12/23 08:01 Blood Pressure Mean 98 05/12/23 08:01 Blood Pressure Position Supine 05/11/23 16:39 Pulse Oximetry 97 05/12/23 07:49 Respiratory End-tidal CO2 63 05/10/23 10:02 Oxygen Delivery Method Room Air 05/12/23 07:49 Oxygen Flow Rate 0 05/12/23 07:49 Fraction of Inspired Oxygen (FIO2) 30 05/11/23 08:16 End Tidal Co2 69 05/10/23 09:53 Pain Level 3 05/12/23 07:25 Comment pt was on RA when these vitals were taken. NC had been removed by the patient. The O2 wall setting was at 1L. pt is refusing tyhe NC at this time. pt is within O2 goal of 88-92% 05/11/23 22:50 Intake & Output 05/11/23 05/12/23 05/12/23 23:59 11:59 23:59 Intake Total 1040 / 1540 110 / 210 100 / 210 Output Total 1125 / 3825 1974 Balance -85 / -2285 -365 / -1765 -1400 / -1765 Intake: IV 150 / 170 110 / 210 100 / 210 Oral 890 / 1370 Output: Urine 1125 / 3825 1974 Other: Urine Color Light Tabby Dark Tabby Yellow Urine Appearance Clear Clear Clear Urine Odor Normal Normal Comment Urine mixed with stool in commode. Volume estimated, not measured. Stool Size Large Stool Characteristics Formed Soft Formed Voiding Methods Bedside Commode Bedside Commode Bedside Commode Data Completed and Pending Labs on day of discharge: Labs from last 24 hours 05/12/23 05/12/23 05/10/23 10:32 08:00 20:30 Sodium 143 Potassium 3.9 Chloride 102 Carbon Dioxide 35.8 H Anion Gap 5.2 BUN 21 H Creatinine 0.9 Est GFR (CKD-EPI 2020) 74.10 Glucose 87 Calcium 9.0 Troponin I < 50 < 50 Urine Legionella Ag Negative PFSH All Active Problems (Updated 05/12/23 @ 19:52 by Tad Austin MD) Acute respiratory failure with hypoxia and hypercarbia (Acute) COPD with acute exacerbation (Acute) Community acquired pneumonia of left lung (Acute) Back pain (Acute) Venous stasis dermatitis (Chronic) Smoking (Acute) Hypertension (Chronic) Vitamin D deficiency (Acute) Dysuria (Acute) Lymphedema (Acute) Screening for colon cancer (Acute) Edema of both lower extremities (Acute) Multifocal pneumonia (Acute) Medical History COPD (chronic obstructive pulmonary disease) 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, on suboxone Hypoxia Morbid obesity Pneumonia due to 2019 novel coronavirus Pulmonary embolism (~12/16/21) SARS-CoV-2 positive Surgical History History of femur fracture hardware in femur Family History Mother Diabetes Father Hypertension Social History Smoking/Tobacco Use Status: Current every day Tobacco Type: cigarettes Smoking packs per day: 0.33 Smoking cigarettes per day: 6.6 and e-cigarettes Counseling given: provider counseling and support medications Smoking risk assessment performed?: Yes Alcohol Intake: former Drug use: Current Sobriety Substance use type: heroin Details: Currently on Suboxone Do you feel safe at home: Yes Do you feel safe in your relationship?: Yes Time Spent with Patient Time Spent with Patient: <45 minutes Time was spent: preparing to see the patient(eg.review tests), ordering medications,tests, procedures, referring, communicating with other health healthcare administrator (Preparing discharge summary), counseling the patient and care coordination
[2023-05-13 15:48] LABS: Streptococcus Pneumoniae Ag, U Negative (Negative)
== END 2023-05-12 18:40 | disposition home or self-care (01) | DRG 190 ==
LOC: ER 14:17 → ICU 16:46
PROVIDERS: Admitting Provider Internal Medicine; Emergency Provider Emergency Medicine; PCP Family Medicine; Visit Provider Internal Medicine
DX: J44.1 Chronic obstructive pulmonary disease with (acute) exacerbation (principal); J96.01 Acute respiratory failure with hypoxia; J96.02 Acute respiratory failure with hypercapnia; F11.20 Opioid dependence, uncomplicated; Z68.43 Body mass index [BMI] 50.0-59.9, adult; L97.811 Non-pressure chronic ulcer of other part of right lower leg limited to breakdown of skin; R60.0 Localized edema; I87.2 Venous insufficiency (chronic) (peripheral); Z99.81 Dependence on supplemental oxygen; G47.33 Obstructive sleep apnea (adult) (pediatric); I11.0 Hypertensive heart disease with heart failure; Z86.711 Personal history of pulmonary embolism; F17.290 Nicotine dependence, other tobacco product, uncomplicated; F17.210 Nicotine dependence, cigarettes, uncomplicated; E66.01 Morbid (severe) obesity due to excess calories; I89.0 Lymphedema, not elsewhere classified; I50.9 Heart failure, unspecified
CPT/HCPCS: 36415; 71275; 80048; 80053; 80061; 82550; 82805; 84145; 87449; 87637; 93005; 94640; 97161; J1650; 71045; 81003; 81015; 83036; 83605; 83880; 84484; 85025; 85379; 86140; 87086; 87899; 93010; 93306; 93970; 94660; 94664; 94668; 99232; 99239; 99291; J1940; J2930; J3490; J7512; J7620

== ENCOUNTER 2023-05-20 16:37 | Outpatient (REF) | payer MEDICAID, SELFPAY ==
[2023-05-20 15:43] LABS: Bilirubin Small (Negative); Blood Large (Negative); Clarity Cloudy (Clear); Glucose Negative (Negative); Ketones Trace mg/dL (Negative); Leukocyte Esterase Small (Negative); Nitrite Negative (Negative); Specific Gravity >= 1.030 (1.005-1.025)
[2023-05-20 15:59] LABS: Epithelial Cells Few HPF (Negative); Other Cells Rare Renal (Negative); RBC >50 HPF (0-2)
[2023-05-20 16:00] LABS: Bacteria Few HPF (Negative); C & S Indicated? Yes; Casts Negative LPF (Negative); Crystals Rare Calcium Oxalate HPF (Negative); Mucus Trace (Negative)
== END 2023-05-20 16:38 | disposition home or self-care (01) ==
LOC: NCHCN 16:37
PROVIDERS: PCP Family Medicine; Visit Provider Family Medicine
DX: R30.0 Dysuria (principal)
CPT/HCPCS: 81003; 81015; 87086

== ENCOUNTER 2023-06-25 10:41 | Emergency (ER) | payer MEDICAID, SELFPAY ==
[2023-06-25 10:45] VITALS: BP 113/52; PULSE 95; RESP 20; TEMP 37; O2SAT 94
[2023-06-25 10:54] VITALS: RESP 16
--- NOTE | 2023-06-25 11:00 | DI.US_ITS ---
Exam(s) US RENAL EXAM: US RENAL CLINICAL HISTORY: left flank pain, hx kidney stones, eval hydro. TECHNIQUE: Clancy scale, color and spectral Doppler were used. COMPARISON: CT CT ABDOMEN PELVIS W from 11/08/[address] CHEST PE CTA from 05/10/2023 US US EXTREMITY VENOUS BI from 05/11/2023 CR XR CHEST 2V PA LATERAL from 06/25/2023 FINDINGS: Renal size in cm: Right: 10.8. Left: 11. Echogenicity: Normal. Hydronephrosis: Mild dilatation of the right renal collecting system. No left hydronephrosis. Cyst or mass: No. Nephrolithiasis: No. Other findings: None. Bladder:The urinary bladder is incompletely imaged due to decreased distension. Ureteral jets: Right: Not visualized at this time. Left: Visualized and unremarkable. Prevoid vol:49 cc Postvoid vol:The patient was unable to void. Renal color flow: Symmetric and within normal limits. IMPRESSION: 1. Mild right hydronephrosis. 2. No left hydronephrosis. 3. Findings were discussed with Dr. Villeda at 11:53 a.m. on 06/25/2023. DATA REPOSITORY:
--- NOTE | 2023-06-25 11:00 | DI.RAD_ITS ---
Exam(s) XR CHEST 2V PA LATERAL EXAM: XR CHEST 2V PA LATERAL CLINICAL HISTORY: shortness of breath TECHNIQUE: 2D digital imaging was performed of the chest. Two images were obtained. PA and lateral views were obtained. COMPARISON: CR XR PORTABLE CHEST AP from 05/10/[address] CHEST PE CTA from 05/10/2023 FINDINGS: MEDIASTINUM: Normal. HEART: Normal. PULMONARY VASCULATURE: Normal. LUNGS: Clear. PLEURAL SPACE: No pleural effusion or pneumothorax. BONE:Within normal limits for the patient's age. There is exaggeration of the thoracic kyphosis. Th ere are stable compression fracture deformities in the midthoracic spine. On orthopedic side plate a nd screws are partially imaged in the proximal right humerus. OTHER FINDINGS:Normal. IMPRESSION: No acute pulmonary findings. DATA REPOSITORY: RADIATION DOSE DELIVERED:
--- NOTE | 2023-06-25 11:12 | ED.GENADUL_ITS ---
Discharge Plan Disposition Patient Disposition: Home Condition: Good Discharge Details Clinical Impression: Back pain Primary Care Provider: Jaime Bangura ED Provider: Lauren Villeda Home Meds and New Rx's Prescriptions: New cyclobenzaprine 10 mg tablet 10 mg PO TID Qty: 20 0RF lidocaine 1.8 % adhesive patch,medicated 1 patch topical DAILY Qty: 30 0RF Rx Instructions: leave on most painful area for up to 12 hrs Continued esomeprazole magnesium [Nexium Packet] [address] for susp in packet 40 mg PO DAILY Qty: 30 0RF spironolactone 25 mg Tablet 25 mg PO DAILY Qty: 30 0RF furosemide [Lasix] 40 mg tablet 40 mg PO DAILY Qty: 30 0RF buprenorphine-naloxone [Suboxone] 12-3 mg Film 20 film sublingual DAILY Rx Instructions: 20mg a day ascorbic acid (vitamin C) [Vitamin C] 500 mg Tablet 1,000 mg PO BID Qty: 0 0RF cholecalciferol (vitamin D3) 25 mcg (1,000 unit) Tablet 2,000 units PO DAILY Qty: 0 0RF Combivent Respimat 20-100 mcg/actuation Mist 1 puff inhalation QID Qty: 1 0RF No Action methylprednisolone 8 mg tablet See Rx Instructions .ROUTE .COMPLEX Qty: 20 0RF Rx Instructions: 8 mg orally one tablet qid x 2d, tid x 2d, then bid x 2d, 1 daily x 2d buprenorphine-naloxone [Suboxone] 8-2 mg Film 1 film sublingual DAILY Discharge Instructions Instructions: Back Pain (ED) Additional Instructions: Call your primary care doctor today to schedule an appointment for next week to follow up on your visit today. Return to the emergency department for new or worsening symptoms. Referrals: Jaime Bangura [Primary Care Provider] - Medical Decision Making 57yo F with COPD, recent admission one month ago for COPD exacerbation/respiratory failure, presenting for left flank pain. Symptoms most consistent with back spasm though could also represent kidney stone especially given patient history. No pleurtic pain to suggest pulmonary embolism. Treated symptomatically with tylenol, toradol, flexeril, lidocaine patch. CXR ordered and independently reviewed, no pneumonia, pneumothorax, or pleural effusion; agree with radiology read below. Renal ultrasound ordered and independently reviewed, hydronephrosis on the RIGHT (consistent with recently removed right sided uretral stent), no hydro on the left to suggest obstructive left sided stone. UA negative for infection. On reassessment Imaging Data Radiologic Study: Imaging: X-Ray Radiologist's impression: IMPRESSION: No acute pulmonary findings. Radiologic Study #2: Imaging: Ultrasound Radiologist's impression: IMPRESSION: 1. Mild right hydronephrosis. 2. No left hydronephrosis HPI General Mode of arrival: ambulatory . Date/Time Provider Initiated Documentation: 06/25/23 10:52 . Limitations to Documentation: no limitations . Information obtained by: patient and old records reviewed . HPI Narrative: 57yo F with COPD, recent admission one month ago for COPD exacerbation/respiratory failure, presenting for left flank pain. Concerned about returning lung infection. Pain started at 0100 this morning, woke her from sleep, sharp, lower , radiates to her left flank. Feels crampy like a back spasm. Pain improved slowly without intervention and she was able to fall back asleep. At that time associated with some shortness of breath which she attributes to pain. Recurred again this morning and she presented to the ED; it has again begun to wane, 2-3/10 in severity. She has a history of kidney stones (just had ureteral stent removed on the the RIGHT yesterday); this does not feel similar. No dysuria or hematuria. No recent injury, trauma, or unusual activity. No fevers, chills, rash, nausea, vomiting, abdominal pain, chest pain, numbness, tingling, weakness, bowel/bladder issues, or other concerns. Related Data Home Medications Medication Instructions Recorded Confirmed buprenorphine 12 mg-naloxone 3 mg 20 film sublingual DAILY 12/16/21 05/10/23 sublingual film (Suboxone) buprenorphine 8 mg-naloxone 2 mg 1 film sublingual DAILY 12/16/21 05/10/23 sublingual film (Suboxone) ascorbic acid (vitamin C) 500 mg 1,000 mg PO BID #0 tabs 12/18/21 05/10/23 tablet (Vitamin C) cholecalciferol (vitamin D3) 25 2,000 units PO DAILY #0 tabs 12/18/21 06/25/23 mcg (1,000 unit) tablet ipratropium 20 mcg-albuterol 100 1 puff inhalation QID #1 g 12/18/21 06/25/23 mcg/actuation mist for inhalation (Combivent Respimat) esomeprazole magnesium 40 mg 40 mg PO DAILY #30 ea 05/12/23 granules delayed release for susp (Nexium Packet) furosemide 40 mg tablet (Lasix) 40 mg PO DAILY #30 tabs 05/12/23 06/25/23 methylprednisolone 8 mg tablet See Rx Instructions .Route 05/12/23 .COMPLEX #20 tabs spironolactone 25 mg tablet 25 mg PO DAILY #30 tabs 05/12/23 06/25/23 cyclobenzaprine 10 mg tablet 10 mg PO TID #20 tabs 06/25/23 lidocaine 1.8 % topical patch 1 patch topical DAILY #30 ea 06/25/23 Previous Rx's Medication Instructions Recorded ascorbic acid (vitamin C) 500 mg 1,000 mg PO BID #0 tabs 12/18/21 tablet (Vitamin C) cholecalciferol (vitamin D3) 25 2,000 units PO DAILY #0 tabs 12/18/21 mcg (1,000 unit) tablet ipratropium 20 mcg-albuterol 100 1 puff inhalation QID #1 g 12/18/21 mcg/actuation mist for inhalation (Combivent Respimat) esomeprazole magnesium 40 mg 40 mg PO DAILY #30 ea 05/12/23 granules delayed release for susp (Nexium Packet) furosemide 40 mg tablet (Lasix) 40 mg PO DAILY #30 tabs 05/12/23 methylprednisolone 8 mg tablet See Rx Instructions .Route 05/12/23 .COMPLEX #20 tabs spironolactone 25 mg tablet 25 mg PO DAILY #30 tabs 05/12/23 cyclobenzaprine 10 mg tablet 10 mg PO TID #20 tabs 06/25/23 lidocaine 1.8 % topical patch 1 patch topical DAILY #30 ea 06/25/23 Allergies Allergy/AdvReac Type Severity Reaction Status Date / Time aspirin Allergy Unknown Verified 06/25/23 10:50 codeine Allergy Unknown Verified 06/25/23 10:50 General Stated Complaint: GenMedical SADIA: 3 Review of Systems Narrative: see HPI PFSH All Active Problems (Updated 06/25/23 @ 12:56 by Lauren Villeda MD) Back pain (Acute) COPD with acute exacerbation (Acute) Back pain (Acute) Venous stasis dermatitis (Chronic) Smoking (Acute) Hypertension (Chronic) Vitamin D deficiency (Acute) Dysuria (Acute) Lymphedema (Acute) Screening for colon cancer (Acute) Edema of both lower extremities (Acute) Multifocal pneumonia (Acute) Medical History COPD (chronic obstructive pulmonary disease) 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, on suboxone Hypoxia Morbid obesity Pneumonia due to 2019 novel coronavirus Pulmonary embolism (~12/16/21) SARS-CoV-2 positive Surgical History History of femur fracture hardware in femur Family History Mother Diabetes Father Hypertension Social History Smoking/Tobacco Use Status: Current every day Tobacco Type: e-cigarettes Counseling given: provider counseling and support medications Smoking risk assessment performed?: Yes Alcohol Intake: former Drug use: Current Sobriety Substance use type: does not use Details: Currently on Suboxone Do you feel safe at home: Yes Do you feel safe in your relationship?: Yes Exam Narrative Exam Narrative: General: Alert, well appearing, well nourished, in no acute distress. Head: Normocephalic, atraumatic Neck: Trachea midline, Neck supple. ENT: MMM. No oropharygeal lesions or exudate. Back: No midline tenderness. No palpable paraspinal spasm. No rash. Healing incision on right flank with no signs of infection. Cardiac: RRR, no murmurs appreciated Resp: No respiratory distress. CTAB. Abd: Soft, non-distended, nontender : No suprapubic tenderness. No CVA tenderness. Extremities: No deformities. No peripheral edema. Neurologic: GCS 15. Sensation intact and symmetric bilaterally. Moves all extremities freely against gravity Course Vital Signs Vital signs: Vital Signs Temperature 37.0 C 06/25/23 10:45 Pulse 95 H 06/25/23 10:45 Respiratory Rate 20 06/25/23 10:45 Blood Pressure 113/52 L 06/25/23 10:45 Pulse Oximetry 94 06/25/23 10:45 Temperature 37.0 C 06/25/23 10:45 Temperature Source Skin 06/25/23 10:45 Pulse 95 H 06/25/23 10:45 Respiratory Rate 16 07/28/23 10:54 Respiratory Effort Normal, Non-Labored 06/25/23 10:54 Respiratory Depth Normal 06/25/23 10:54 Respiratory Pattern Normal 06/25/23 10:54 Blood Pressure 113/52 L 06/25/23 10:45 Pulse Oximetry 94 06/25/23 10:45 Oxygen Delivery Method Room Air 06/25/23 10:45 Oxygen Flow Rate 0 06/25/23 10:45
[2023-06-25] MEDS: Lidocaine 5% Patch 1 PATCH TP (11:47)
[2023-06-25] MEDS: Cyclobenzaprine 10 MG TAB PO (11:48)
[2023-06-25] MEDS: Acetaminophen 500 MG TAB 1000 MG PO (11:48)
[2023-06-25] MEDS: Ketorolac 15 MG/ML VIAL IM (11:48)
[2023-06-25 12:35] LABS: Bilirubin Small (Negative); Blood Large (Negative); Clarity Sl Cloudy (Clear); Glucose Negative (Negative); Ketones Trace mg/dL (Negative); Leukocyte Esterase Trace (Negative); Nitrite Negative (Negative)
[2023-06-25 12:47] LABS: Epithelial Cells Moderate HPF (Negative); RBC >50 HPF (0-2)
[2023-06-25 12:48] LABS: Bacteria Moderate HPF (Negative); Mucus Moderate (Negative)
[2023-06-25 12:50] LABS: C & S Indicated? No/Sq. Contamination
[2023-06-25 13:08] VITALS: BP 141/85; PULSE 79; RESP 20; O2SAT 93
== END 2023-06-25 13:11 | disposition home or self-care (01) ==
PROVIDERS: Emergency Provider Student in an Organized Health Care Education/Training Program; PCP Family Medicine
DX: M54.9 Dorsalgia, unspecified (principal); J44.9 Chronic obstructive pulmonary disease, unspecified
CPT/HCPCS: 76770; 96372; 99284; 71046; 81003; 81015; J1885

== ENCOUNTER 2023-08-17 19:15 | Outpatient (REF) | payer MEDICAID, SELFPAY ==
[2023-08-17 19:12] LABS: Anion Gap 6.9 mmol/L (3-11); BUN 13 mg/dL (7-18); C-Reactive Protein 0.54 mg/dL (0.0-0.3); CO2 30.1 mmol/L (21.0-32.0); CREATININE 0.9 mg/dL (0.55-1.02); Calcium 9.3 mg/dL (8.5-10.1); Chloride 104 mmol/L (98-107); Glucose 104 mg/dL (74-106); Potassium 4.3 mmol/L (3.5-5.1); Sodium 141 mmol/L (136-145)
== END 2023-08-17 19:16 | disposition home or self-care (01) ==
LOC: NCHCN 19:15
PROVIDERS: PCP Family Medicine; Visit Provider Family Medicine
DX: I89.0 Lymphedema, not elsewhere classified (principal); R79.82 Elevated C-reactive protein (CRP); I10 Essential (primary) hypertension
CPT/HCPCS: 80048; 86140

== ENCOUNTER 2023-09-02 13:24 | Outpatient (REF) | payer MEDICAID, SELFPAY ==
[2023-09-02 15:19] LABS: Anion Gap 6.6 mmol/L (3-11); BUN 13 mg/dL (7-18); C-Reactive Protein 1.44 mg/dL (0.0-0.3); CO2 32.4 mmol/L (21.0-32.0); CREATININE 0.8 mg/dL (0.55-1.02); Calcium 9.5 mg/dL (8.5-10.1); Chloride 103 mmol/L (98-107); Estimated GFR 85.35 (mL/min/1.73m2); Glucose 101 mg/dL (74-106); Potassium 4.1 mmol/L (3.5-5.1); Sodium 142 mmol/L (136-145)
== END 2023-09-02 13:25 | disposition home or self-care (01) ==
LOC: NCHCN 13:24
PROVIDERS: PCP Family Medicine; Visit Provider Family Medicine
DX: L03.115 Cellulitis of right lower limb (principal); I89.0 Lymphedema, not elsewhere classified
CPT/HCPCS: 80048; 86140

== ENCOUNTER 2023-10-12 19:16 | Outpatient (REF) | payer MEDICAID, SELFPAY ==
[2023-10-12 20:03] LABS: BUN 9 mg/dL (7-18); CO2 32.8 mmol/L (21.0-32.0); CREATININE 0.7 mg/dL (0.55-1.02); Calcium 8.9 mg/dL (8.5-10.1); Chloride 105 mmol/L (98-107); Estimated GFR 100.19 (mL/min/1.73m2); Glucose 100 mg/dL (74-106); Potassium 4.1 mmol/L (3.5-5.1); Sodium 144 mmol/L (136-145)
[2023-10-12 20:04] LABS: Anion Gap 6.2 mmol/L (3-11)
== END 2023-10-12 19:17 | disposition home or self-care (01) ==
LOC: NCHCN 19:16
PROVIDERS: PCP Family Medicine; Visit Provider Family Medicine
DX: I10 Essential (primary) hypertension (principal); Z00.00 Encounter for general adult medical examination without abnormal findings
CPT/HCPCS: 80048

== ENCOUNTER 2024-04-04 11:17 | Emergency (ER) | payer MEDICAID, SELFPAY ==
[2024-04-04 11:21] VITALS: BP 139/78; PULSE 85; RESP 20; TEMP 36.4; O2SAT 93
[2024-04-04 12:29] LABS: Abs Immature Grans 0.01 10^3/uL (0.0-0.06); Absolute Basophil Count 0.02 10^3/uL (0.0-0.2); Absolute Eosinophil Count 0.12 10^3/uL (0.0-0.7); Absolute Monocyte Count 0.31 10^3/uL (0.1-0.8); Absolute Neutrophil Count 2.92 10^3/uL (1.2-6.7); Basophils % 0.5 %; Eosinophils % 2.8 %; HCT 39.8 % (36.0-46.0); Immature Grans % 0.2 %; MCH 31.2 pg (27.0-33.0); MCHC 32.7 % (32.0-36.0); MCV 95 fL (80-95); MPV 8.8 fL (8.0-11.0); Monocytes % 7.2 %; Neutrophils % 68.3 %; Platelet Count 202 10^3/uL (130-400); RBC 4.17 10^6/uL (3.93-5.22); RDW 13.2 % (11.7-14.6); WBC 4.28 10^3/uL (4.4-10.8)
[2024-04-04 12:31] LABS: ESR 11 mm/hr (0-30)
[2024-04-04 12:45] LABS: ALT 19 U/L (14-59); AST 17 U/L (15-37); Albumin 3.8 g/dL (3.4-5.0); Alkaline Phosphatase 86 U/L (46-116); Anion Gap 6.7 mmol/L (3-11); BUN 9 mg/dL (7-18); Bilirubin, Total 0.8 mg/dL (0.2-1.0); CO2 31.3 mmol/L (21.0-32.0); CREATININE 0.7 mg/dL (0.55-1.02); Calcium 9.2 mg/dL (8.5-10.1); Chloride 105 mmol/L (98-107); Estimated GFR 99.57 (mL/min/1.73m2); Glucose 77 mg/dL (74-106); Potassium 3.9 mmol/L (3.5-5.1); Sodium 143 mmol/L (136-145); Total Protein 7.3 g/dL (6.4-8.2)
[2024-04-04 12:46] VITALS: BP 173/84; PULSE 71; RESP 18; TEMP 36.3; O2SAT 95
[2024-04-04 12:47] LABS: C-Reactive Protein < 0.50 mg/dL (<or=0.5)
--- NOTE | 2024-04-04 13:20 | DI.RAD_ITS ---
Exam(s) XR ANKLE RT COMPLETE XR TIB/FIB RT EXAM: XR ANKLE RT COMPLETE and XR tib/fib RT CLINICAL HISTORY: pain, wound. TECHNIQUE: 2D digital imaging was performed of the right tib/fib and ankle. Eight images were obtai nadeem. AP, lateral and oblique views were obtained. COMPARISON: None. FINDINGS: BONES: No acute fracture is present. No bony destructive lesion is seen. There is a moderate-sized p lantar calcaneal spur. JOINTS: The ankle mortise is normally aligned. SOFT TISSUE: Dystrophic calcifications are seen in the soft tissues. Examination is limited by patie nt's body habitus. IMPRESSION: No acute fracture or dislocation. No radiographic findings to suggest osteomyelitis. DATA REPOSITORY: RADIATION DOSE DELIVERED:
[2024-04-04 13:55] VITALS: BP 173/92; PULSE 78; RESP 18; TEMP 36.3
--- NOTE | 2024-04-04 15:39 | ED.GENADUL_ITS ---
Discharge Plan Disposition Patient Disposition: Home Condition: Stable Discharge Details Clinical Impression: Cellulitis Primary Care Provider: Jaime Bangura ED Provider: Hali Mancia Home Meds and New Rx's Prescriptions: New levofloxacin 500 mg tablet 500 mg PO DAILY 7 Days Qty: 7 0RF Continued Eliquis 5 mg tablet 5 mg PO BID esomeprazole magnesium [Nexium Packet] [address] for susp in packet 40 mg PO DAILY Qty: 30 0RF Hold Instructions: Pt Stopped/Never Started methylprednisolone 8 mg tablet See Rx Instructions .ROUTE .COMPLEX Qty: 20 0RF Hold Instructions: Pt Stopped/Never Started Rx Instructions: 8 mg orally one tablet qid x 2d, tid x 2d, then bid x 2d, 1 daily x 2d spironolactone 25 mg Tablet 25 mg PO DAILY Qty: 30 0RF furosemide [Lasix] 40 mg tablet 40 mg PO DAILY Qty: 30 0RF cyclobenzaprine 10 mg tablet 10 mg PO TID Qty: 20 0RF Hold Instructions: Pt Stopped/Never Started lidocaine 1.8 % adhesive patch,medicated 1 patch topical DAILY Qty: 30 0RF Hold Instructions: Pt Stopped/Never Started Rx Instructions: leave on most painful area for up to 12 hrs buprenorphine-naloxone [Suboxone] 8-2 mg Film 1 film sublingual DAILY buprenorphine-naloxone [Suboxone] 12-3 mg Film 20 film sublingual DAILY Rx Instructions: 20mg a day Combivent Respimat 20-100 mcg/actuation Mist 1 puff inhalation QID Qty: 1 0RF Hold Instructions: Pt Stopped/Never Started Discharge Instructions Instructions: Cellulitis (ED) Additional Instructions: Please take antibiotic as prescribed Yogurt daily while on antibiotics Please follow-up with the wound care center as you will likely need debridement to your wound Return with spreading redness, fever, worsening pain Referrals: Jaime Bangura [Primary Care Provider] - 2 days Discharge Data Discharge Date/Time-TO BE ENTERED AT DEPARTURE: 04/04/24 16:02 HPI General Date/Time Provider Initiated Documentation: 04/04/24 11:34 . HPI Narrative: This 58-year-old female is presenting with right lower extremity wound with history of lymphedema. Has an appointment scheduled with wound care on but was told to come here for an antibiotic. Denies any fever or chills. Otherwise feels well. History of recurrent cellulitis per patient. Denies history of diabetes. Related Data Home Medications Medication Instructions Recorded Confirmed buprenorphine 12 mg-naloxone 3 mg 20 film sublingual DAILY 12/16/21 04/04/24 sublingual film (Suboxone) buprenorphine 8 mg-naloxone 2 mg 1 film sublingual DAILY 12/16/21 04/04/24 sublingual film (Suboxone) ipratropium 20 mcg-albuterol 100 1 puff inhalation QID #1 g 12/18/21 04/04/24 mcg/actuation mist for inhalation (Combivent Respimat) esomeprazole magnesium 40 mg 40 mg PO DAILY #30 ea 05/12/23 04/04/24 granules delayed release for susp (Nexium Packet) furosemide 40 mg tablet (Lasix) 40 mg PO DAILY #30 tabs 05/12/23 04/04/24 methylprednisolone 8 mg tablet See Rx Instructions .Route 05/12/23 04/04/24 .COMPLEX #20 tabs spironolactone 25 mg tablet 25 mg PO DAILY #30 tabs 05/12/23 04/04/24 cyclobenzaprine 10 mg tablet 10 mg PO TID #20 tabs 06/25/23 04/04/24 lidocaine 1.8 % topical patch 1 patch topical DAILY #30 ea 06/25/23 04/04/24 apixaban 5 mg tablet (Eliquis) 5 mg PO BID 03/16/24 04/04/24 levofloxacin 500 mg tablet 500 mg PO DAILY 7 days #7 tabs 04/04/24 Previous Rx's Medication Instructions Recorded ipratropium 20 mcg-albuterol 100 1 puff inhalation QID #1 g 12/18/21 mcg/actuation mist for inhalation (Combivent Respimat) esomeprazole magnesium 40 mg 40 mg PO DAILY #30 ea 05/12/23 granules delayed release for susp (Nexium Packet) furosemide 40 mg tablet (Lasix) 40 mg PO DAILY #30 tabs 05/12/23 methylprednisolone 8 mg tablet See Rx Instructions .Route 05/12/23 .COMPLEX #20 tabs spironolactone 25 mg tablet 25 mg PO DAILY #30 tabs 05/12/23 cyclobenzaprine 10 mg tablet 10 mg PO TID #20 tabs 06/25/23 lidocaine 1.8 % topical patch 1 patch topical DAILY #30 ea 06/25/23 levofloxacin 500 mg tablet 500 mg PO DAILY 7 days #7 tabs 04/04/24 Allergies Allergy/AdvReac Type Severity Reaction Status Date / Time aspirin Allergy Unknown Verified 06/25/23 10:50 codeine Allergy Unknown Verified 06/25/23 10:50 General Stated Complaint: Cellulitis SADIA: 3 Exam Narrative Exam Narrative: 58-year-old female alert and oriented, no acute distress, lungs clear to auscultation bilaterally, no respiratory distress, cardiac rate rhythm regular, significant lymphedema to bilateral lower extremities, right lower extremity with approximately 4 inch open wound, macerated tissue with areas of scant eschar, no purulent drainage, mild erythema surrounding site, neurovascularly intact to bilateral lower extremities, able to range right ankle, no lymphangitis Course Vital Signs Vital signs: Vital Signs Temperature 36.4 C L 04/04/24 11:21 Pulse 85 04/04/24 11:21 Respiratory Rate 20 04/04/24 11:21 Blood Pressure 139/78 04/04/24 11:21 Pulse Oximetry 93 04/04/24 11:21 Temperature 36.3 C L 04/04/24 13:55 Temperature Source Oral 04/04/24 13:55 Pulse 78 04/04/24 13:55 Respiratory Rate 18 04/04/24 13:55 Respiratory Effort Normal 04/04/24 13:55 Respiratory Depth Normal 04/04/24 13:55 Respiratory Pattern Normal 04/04/24 13:55 Blood Pressure 173/92 H 04/04/24 13:55 Blood Pressure Mean 119 04/04/24 13:55 Blood Pressure Position Sitting 04/04/24 13:55 Pulse Oximetry 95 04/04/24 12:46 Oxygen Delivery Method Room Air 04/04/24 13:55 Oxygen Flow Rate 0 04/04/24 13:55 Pain Level 8 04/04/24 11:40 Lab/Test Results Lab/Test Results: 04/04/24 11:47 Leg - Right Lower Wound Culture - Pending 04/04/24 11:47 Leg - Right Lower Gram Stain - Final Laboratory Tests Range/Units 04/04/24 12:22 WBC (4.4-10.8) 10^3/uL 4.28 L RBC (3.93-5.22) 10^6/uL 4.17 Hgb (11.2-15.7) g/dL 13.0 Hct (36.0-46.0) % 39.8 MCV (80-95) fL 95 MCH (27.0-33.0) pg 31.2 MCHC (32.0-36.0) % 32.7 RDW (11.7-14.6) % 13.2 Plt Count (130-400) 10^3/uL 202 MPV (8.0-11.0) fL 8.8 Immature Gran % % 0.2 Neutrophils % % 68.3 Lymphocytes % % 21.0 Monocytes % % 7.2 Eosinophils % % 2.8 Basophils % % 0.5 Nucleated RBC % (0.0-0.3) % 0.0 Absolute Neutrophils (1.2-6.7) 10^3/uL 2.92 Absolute Lymphocytes (1.2-3.4) 10^3/uL 0.90 L Absolute Monocytes (0.1-0.8) 10^3/uL 0.31 Absolute Eosinophils (0.0-0.7) 10^3/uL 0.12 Absolute Basophils (0.0-0.2) 10^3/uL 0.02 ESR (0-30) mm/hr 11 Sodium (136-145) mmol/L 143 Potassium (3.5-5.1) mmol/L 3.9 Chloride (98-107) mmol/L 105 Carbon Dioxide (21.0-32.0) mmol/L 31.3 Anion Gap (3-11) mmol/L 6.7 BUN (7-18) mg/dL 9 Creatinine (0.55-1.02) mg/dL 0.7 Est GFR (CKD-EPI 2020) (mL/min/1.73m2) 99.57 Glucose (74-106) mg/dL 77 Calcium (8.5-10.1) mg/dL 9.2 Total Bilirubin (0.2-1.0) mg/dL 0.8 AST (15-37) U/L 17 ALT (14-59) U/L 19 Alkaline Phosphatase (46-116) U/L 86 C-Reactive Protein (<or=0.5) mg/dL < 0.50 Total Protein (6.4-8.2) g/dL 7.3 Albumin (3.4-5.0) g/dL 3.8 Medical Decision Making 58-year-old female presenting with report of cellulitis and pain, history of lymphedema, and was told to come and get antibiotic per [facility] Patient is alert and oriented, she has approximately a 4 inch open wounds in the lymphedema which is malodorous and erythematous, no significant lymphangitis, no evidence of systemic illness, diagnostic labs reassuring, wound culture pending, will initiate Levaquin as of concern for Pseudomonas Patient has an appointment with wound care on she is encouraged to keep this for wound debridement and is stable for discharge home at this time Quality:SDOH Health Related Social Needs: No Data to Display PFSH All Active Problems (Updated 04/04/24 @ 14:53 by ZARINA Rivas) Cellulitis (Acute) Atrial flutter, paroxysmal (Acute) COPD with acute exacerbation (Acute) Back pain (Acute) Venous stasis dermatitis (Chronic) Smoking (Acute) Hypertension (Chronic) Vitamin D deficiency (Acute) Dysuria (Acute) Lymphedema (Acute) Screening for colon cancer (Acute) Edema of both lower extremities (Acute) Multifocal pneumonia (Acute) Medical History COPD (chronic obstructive pulmonary disease) 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, on suboxone Hypoxia Morbid obesity Pneumonia due to 2019 novel coronavirus Pulmonary embolism (~12/16/21) SARS-CoV-2 positive Surgical History History of femur fracture hardware in femur Family History Mother Diabetes Father Hypertension Social History Smoking/Tobacco Use Status: Current every day Tobacco Type: e-cigarettes Counseling given: provider counseling and support medications Smoking risk assessment performed?: Yes Alcohol Intake: former Drug use: Current Sobriety Substance use type: does not use Details: Currently on Suboxone Housing: apartment Do you feel safe at home: Yes Do you feel safe in your relationship?: Yes
== END 2024-04-04 16:02 | disposition home or self-care (01) ==
PROVIDERS: Emergency Provider Physician Assistant; PCP Family Medicine
DX: L03.115 Cellulitis of right lower limb (principal); I89.0 Lymphedema, not elsewhere classified; I10 Essential (primary) hypertension; J44.9 Chronic obstructive pulmonary disease, unspecified; I48.92 Unspecified atrial flutter; Z86.711 Personal history of pulmonary embolism; Z79.01 Long term (current) use of anticoagulants
CPT/HCPCS: 36415; 80053; 85652; 99284; 73590; 73610; 85025; 86140; 87070; 87205; 99283

== ENCOUNTER 2024-04-11 07:42 | Outpatient (CLI) | payer MEDICAID, SELFPAY | END 2024-04-11 07:43 | disposition home or self-care (01) | LOC: DI.CARD 07:43 | PROVIDERS: PCP Family Medicine; Visit Provider Internal Medicine Cardiovascular Disease | DX: I48.92 Unspecified atrial flutter (principal) | CPT/HCPCS: 93010 ==

== ENCOUNTER 2024-05-02 08:32 | Outpatient (CLI) | payer MEDICAID, SELFPAY | END 2024-05-02 08:33 | disposition home or self-care (01) | LOC: DI.CARD 08:32 | PROVIDERS: PCP Student in an Organized Health Care Education/Training Program; Visit Provider Internal Medicine Cardiovascular Disease | CPT/HCPCS: 93010 ==

== ENCOUNTER 2024-10-30 08:23 | Outpatient (CLI) | payer MEDICAID, SELFPAY ==
--- NOTE | 2024-10-30 08:15 | RT.EKG_ITS ---
APPROVED REPORT Exam: Resting ECG Reason for Exam: aflutter Patient Location: O HR:71 bpm ECG Measurements Heart Rate 71 AXIS PA 108 P 19 QRSd 90 QRS 0 QT 385 T 46 QTc 419 Conclusion Sinus rhythm...normal P axis, V-rate 50- 99 Short PA interval...PA <110mS Otherwise normal ECG
== END 2024-10-30 08:24 | disposition home or self-care (01) ==
LOC: DI.CARD 08:25
PROVIDERS: PCP Family Medicine; Visit Provider Registered Nurse
DX: I48.92 Unspecified atrial flutter (principal)
CPT/HCPCS: 93010

== ENCOUNTER 2024-11-17 16:01 | Emergency (ER) | payer MEDICAID, SELFPAY ==
--- NOTE | 2024-11-17 16:00 | RT.EKG_ITS ---
APPROVED REPORT Exam: Resting ECG Reason for Exam: possible pe Patient Location: E HR:74 bpm ECG Measurements Heart Rate 74 AXIS SD 86 P 100 QRSd 92 QRS 55 QT 376 T 165 QTc 417 Conclusion Sinus rhythm...normal P axis, V-rate 60- 99 Multiform ventricular premature complexes...short R-R, variable morphology Abnormal T, consider ischemia, diffuse leads...T <-0.20mV, ant/lat/inf
[2024-11-17 16:05] VITALS: BP 171/92; PULSE 77; RESP 18; TEMP 36.6; O2SAT 95
--- NOTE | 2024-11-17 16:17 | ED.GENADUL_ITS ---
Discharge Plan Disposition Patient Disposition: Home Condition: Stable Discharge Details Clinical Impression: Shortness of breath Primary Care Provider: Javier Tyler ED Provider: Kacey Ludwig Home Meds and New Rx's Prescriptions: Continued Eliquis 5 mg tablet 5 mg PO BID metoprolol tartrate 25 mg tablet 12.5 mg PO BID albuterol sulfate [Ventolin HFA] 90 mcg/actuation HFA aerosol inhaler 2 inh inhalation Q4H PRN Stiolto Respimat 2.5-2.5 mcg/actuation mist 2 inh inhalation DAILY lidocaine 1.8 % adhesive patch,medicated 1 patch topical DAILY Qty: 30 0RF Rx Instructions: leave on most painful area for up to 12 hrs buprenorphine-naloxone [Suboxone] 8-2 mg Film 1 film sublingual DAILY Combivent Respimat 20-100 mcg/actuation Mist 1 puff inhalation QID Qty: 1 0RF betamethasone valerate 0.1 % ointment 1 applic TOPICAL BID Patient Comments: APPLY A THIN LAYER TO AFFECTED AREA(S) TWICE 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 Negative COVID flu and RSV swab. Please continue your previously prescribed medications as directed. Follow up with primary care provider in 3-5 days. Return to ED sooner if any worsening or concerns. Referrals: Javier Tyler [Primary Care Provider] - 5 days Discharge Data Discharge Date/Time-TO BE ENTERED AT DEPARTURE: 11/17/24 18:08 HPI General Mode of arrival: ambulatory . Date/Time Provider Initiated Documentation: 11/17/24 16:04 . Limitations to Documentation: no limitations . Information obtained by: patient, RN notes reviewed and old records reviewed . HPI Narrative: 58-year-old female with a history of COPD, PE, hypertension, cardiomegaly, obesity peripheral vascular disease, hysterectomy presents to the ER with chief complaint of shortness of breath which was worse over the last 24 hours. She reports she just began taking Lasix a couple of days ago. She states that she is bad at taking her meds and has been off the Lasix for quite a while. She denies taking any inhalers at home. She does take apixaban twice a day. On initial presentation she is speaking in full sentences O2 sat is 95% on room air she is not tachycardic. She denies any chest pain abdominal pain productive cough or any other associated symptoms. Related Data Home Medications ?Medication ?Instructions ?Recorded ?Confirmed buprenorphine 8 mg-naloxone 2 mg 1 film sublingual DAILY 12/16/21 11/17/24 sublingual film (Suboxone) ipratropium 20 mcg-albuterol 100 1 puff inhalation QID #1 g 12/18/21 11/17/24 mcg/actuation mist for inhalation (Combivent Respimat) lidocaine 1.8 % topical patch 1 patch topical DAILY #30 ea 06/25/23 11/17/24 apixaban 5 mg tablet (Eliquis) 5 mg PO BID 03/16/24 11/17/24 albuterol sulfate 90 mcg/actuation 2 inh inhalation Q4H PRN 10/25/24 11/17/24 aerosol inhaler (Ventolin HFA) metoprolol tartrate 25 mg tablet 12.5 mg PO BID 10/25/24 11/17/24 tiotropium 2.5 mcg-olodaterol 2.5 2 inh inhalation DAILY 10/25/24 11/17/24 mcg/actuation mist for inhalation (Stiolto Respimat) betamethasone valerate 0.1 % 1 applic topical BID 11/17/24 11/17/24 topical ointment Previous Rx's ?Medication ?Instructions ?Recorded ipratropium 20 mcg-albuterol 100 1 puff inhalation QID #1 g 12/18/21 mcg/actuation mist for inhalation (Combivent Respimat) lidocaine 1.8 % topical patch 1 patch topical DAILY #30 ea 06/25/23 Allergies Allergy/AdvReac Type Severity Reaction Status Date / Time aspirin Allergy Unknown Other (See Verified 11/17/24 16:20 Comment) codeine Allergy Unknown Other (See Verified 11/17/24 16:20 Comment) General Stated Complaint: SOB SADIA: 3 Review of Systems All systems reviewed & are unremarkable except as noted in HPI and below Cardiovascular Cardiovascular: Reports leg edema and Reports dyspnea Respiratory Respiratory: Reports as per HPI and Reports dyspnea Exam Narrative Exam Narrative: Constitutional: Alert and oriented x3. Appears stated age. Normal body habitus. Head: Normocephalic, no trauma. Eyes: Pupils PERRL, Red reflex noted, EOM's intact. Eyelids symmetrical without lesions, discharge, or swelling. ENT: Bilateral TM's WNL, External ear normal to inspection, no mastoid TTP, swelling, or erythema, Nasal turbinates WNL, no nasal discharge. Normal dentition, Posterior pharynx WNL, no exudate. Chest: RRR, Normal S1, S2, distal pulses intact. Resp: Lungs clear to auscultation bilaterally, no wheezes, rales, or rhonchi. Abdomen: Soft, non-distended, Normoactive bowel sounds all 4 quads. Musculoskeletal: Normal gait, Moves all 4 extremities without difficulty. Skin: No suspicious rashes or lesions. Capillary refill less than 2 sec. Neurologic: Cranial nerves II-XII intact. Alert and oriented x 3. Motor: No deficits noted. Sensory: Intact bilaterally all 4 extremities. Hematologic/Lymphatic: No ecchymosis, no lymphadenopathy. Course Vital Signs Vital signs: Vital Signs Temperature 36.6 C 11/17/24 16:05 Pulse 77 11/17/24 16:05 Respiratory Rate 18 11/17/24 16:05 Blood Pressure 171/92 H 11/17/24 16:05 Pulse Oximetry 95 11/17/24 16:05 Temperature 36.6 C 11/17/24 16:05 Temperature Source Oral 11/17/24 16:05 Pulse 77 11/17/24 16:05 Respiratory Rate 18 11/17/24 16:05 Blood Pressure 171/92 H 11/17/24 16:05 Blood Pressure Position Sitting 11/17/24 16:05 Pulse Oximetry 95 11/17/24 16:05 Oxygen Delivery Method Room Air 11/17/24 16:05 Oxygen Flow Rate 0 11/17/24 16:05 Pain Level 0 11/17/24 16:05 Medical Decision Making 58-year-old female with a history of COPD, PE, hypertension, cardiomegaly, obesity peripheral vascular disease, hysterectomy presents to the ER with chief complaint of shortness of breath which was worse over the last 24 hours. She reports she just began taking Lasix a couple of days ago. She states that she is bad at taking her meds and has been off the Lasix for quite a while. She denies taking any inhalers at home. She does take apixaban twice a day. On initial presentation she is speaking in full sentences O2 sat is 95% on room air she is not tachycardic. She denies any chest pain abdominal pain productive cough or any other associated symptoms. Workup ordered including serial troponins, proBNP, D-dimer, CBC CMP, PT PTT and Fluvid swab. proBNP is within normal limits, no leukocytosis, D-dimer slightly elevated at 688 which is slightly above the age-adjusted result. Troponins are negative, flu COVID and RSV are also within normal limits. Chest x-ray shows no infiltrate, CT chest shows no evidence for PE, pleural effusion or pneumonia. Plan is to discharge home with follow-up with PCP and to continue her previously prescribed medications. This text was generated using [employer] dictation system, please disregard any od dities of phrase or misspellings. Imaging Data Radiologic Study: Imaging: CT Scan Radiologist's impression: COMPARISON: CT CT CHEST PE CTA from 05/10/2023 FINDINGS: CHEST: PULMONARY ARTERIES: There are no intraluminal filling defects to suggest acute pulmonary emboli. LUNGS: There are no infiltrates nor evidence of pulmonary infarction.. No ominous pulmonary nodules. No pleural effusions. MEDIASTINUM: There is no hilar nor mediastinal adenopathy. Visualized thyroid unremarkable. CARDIAC: Heart size is upper normal. There is no pericardial effusion.Caliber of the thoracic aorta is within normal limits. There is no significant shift of the interventricular septum. PARTIALLY VISUALIZED UPPERMOST ABDOMEN: No obvious findings OSSEOUS: No significant osseous lesions.Thoracic kyphosis from prior nonacute wedge fractures. No acute fractures identified. There is indentation of the anterior cortex of the lower sacrum but doubtful for acute fracture. IMPRESSION: There is no evidence of acute pulmonary emboli. No evidence of pulmonary infarction.No infiltrates. No pleural effusions. Thoracic kyphosis. No acute fractures evident. Lab Data Lab results reviewed: Yes I reviewed the patient's lab results. Labs: Laboratory Tests Range/Units 11/17/24 11/17/24 11/17/24 16:20 16:27 17:19 WBC (4.4-10.8) 10^3/uL 5.08 RBC (3.93-5.22) 10^6/uL 4.06 Hgb (11.2-15.7) g/dL 13.1 Hct (36.0-46.0) % 39.1 MCV (80-95) fL 96 H MCH (27.0-33.0) pg 32.3 MCHC (32.0-36.0) % 33.5 RDW (11.7-14.6) % 12.9 Plt Count (130-400) 10^3/uL 206 MPV (8.0-11.0) fL 8.7 Immature Gran % % 0.4 Neutrophils % % 66.0 Lymphocytes % % 24.0 Monocytes % % 6.1 Eosinophils % % 3.1 Basophils % % 0.4 Nucleated RBC % (0.0-0.3) % 0.0 Absolute Neutrophils (1.2-6.7) 10^3/uL 3.35 Absolute Lymphocytes (1.2-3.4) 10^3/uL 1.22 Absolute Monocytes (0.1-0.8) 10^3/uL 0.31 Absolute Eosinophils (0.0-0.7) 10^3/uL 0.16 Absolute Basophils (0.0-0.2) 10^3/uL 0.02 PT (9.1-11.1) sec 9.6 INR (0.9-1.1) 1.0 APTT (23.6-32.8) sec 25.4 D-Dimer (<500) ng/mlFEU 688 H Sodium (136-145) mmol/L 144 Potassium (3.5-5.1) mmol/L 4.1 Chloride (98-107) mmol/L 106 Carbon Dioxide (21.0-32.0) mmol/L 33.1 H Anion Gap (3-11) mmol/L 4.9 BUN (7-18) mg/dL 9 Creatinine (0.55-1.02) mg/dL 0.8 Est GFR (CKD-EPI 2020) (mL/min/1.73m2) 84.82 Glucose (74-106) mg/dL 95 Calcium (8.5-10.1) mg/dL 8.7 Magnesium (1.8-2.4) mg/dL 2.0 Total Bilirubin (0.2-1.0) mg/dL 0.32 AST (15-37) U/L 16 ALT (14-59) U/L 19 Alkaline Phosphatase (46-116) U/L 93 Troponin I (<or=51) ng/L 12 7 NT-Pro-B Natriuret Pep (<300) pg/mL 207 Total Protein (6.4-8.2) g/dL 6.7 Albumin (3.4-5.0) g/dL 3.4 COVID-19 Source Nasopharynx SARS-CoV-2 (PCR) (Negative) Negative Influenza Type A (PCR) (Negative) Negative Influenza Type B (PCR) (Negative) Negative RSV (PCR) (Negative) Negative Range/Units 11/17/24 19:12 WBC (4.4-10.8) 10^3/uL RBC (3.93-5.22) 10^6/uL Hgb (11.2-15.7) g/dL Hct (36.0-46.0) % MCV (80-95) fL MCH (27.0-33.0) pg MCHC (32.0-36.0) % RDW (11.7-14.6) % Plt Count (130-400) 10^3/uL MPV (8.0-11.0) fL Immature Gran % % Neutrophils % % Lymphocytes % % Monocytes % % Eosinophils % % Basophils % % Nucleated RBC % (0.0-0.3) % Absolute Neutrophils (1.2-6.7) 10^3/uL Absolute Lymphocytes (1.2-3.4) 10^3/uL Absolute Monocytes (0.1-0.8) 10^3/uL Absolute Eosinophils (0.0-0.7) 10^3/uL Absolute Basophils (0.0-0.2) 10^3/uL PT (9.1-11.1) sec INR (0.9-1.1) APTT (23.6-32.8) sec D-Dimer (<500) ng/mlFEU Sodium (136-145) mmol/L Potassium (3.5-5.1) mmol/L Chloride (98-107) mmol/L Carbon Dioxide (21.0-32.0) mmol/L Anion Gap (3-11) mmol/L BUN (7-18) mg/dL Creatinine (0.55-1.02) mg/dL Est GFR (CKD-EPI 2020) (mL/min/1.73m2) Glucose (74-106) mg/dL Calcium (8.5-10.1) mg/dL Magnesium (1.8-2.4) mg/dL Total Bilirubin (0.2-1.0) mg/dL AST (15-37) U/L ALT (14-59) U/L Alkaline Phosphatase (46-116) U/L Troponin I (<or=51) ng/L Cancelled NT-Pro-B Natriuret Pep (<300) pg/mL Total Protein (6.4-8.2) g/dL Albumin (3.4-5.0) g/dL COVID-19 Source SARS-CoV-2 (PCR) (Negative) Influenza Type A (PCR) (Negative) Influenza Type B (PCR) (Negative) RSV (PCR) (Negative) Quality:SDOH Health Related Social Needs: No Data to Display PFSH All Active Problems (Updated 11/17/24 @ 17:58 by Kacey Ludwig NP) Shortness of breath (Acute) Obesity (Chronic) Atrial flutter, paroxysmal (Acute) COPD with acute exacerbation (Acute) Back pain (Acute) Venous stasis dermatitis (Chronic) Smoking (Acute) Hypertension (Chronic) Vitamin D deficiency (Acute) Dysuria (Acute) Lymphedema (Acute) Screening for colon cancer (Acute) Edema of both lower extremities (Acute) Multifocal pneumonia (Acute) Medical History Sleep apnea Essential hypertension Candidiasis of skin Osteoarthritis 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 Pain in thoracic spine Cellulitis of right lower limb Cardiomegaly Presbyopia Pulmonary embolism (~12/16/21) Morbid obesity 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, on suboxone Hypoxia Pneumonia due to 2019 novel coronavirus SARS-CoV-2 positive COPD (chronic obstructive pulmonary disease) Surgical History H/O total hysterectomy History of femur fracture hardware in femur Family History Mother Diabetes Father Hypertension Social History Smoking/Tobacco Use Status: Current every day Tobacco Type: e-cigarettes Counseling given: provider counseling and support medications Smoking risk assessment performed?: Yes Alcohol Intake: former Drug use: Current Sobriety Substance use type: does not use Details: Currently on Suboxone Housing: apartment Do you feel safe at home: Yes Do you feel safe in your relationship?: Yes
[2024-11-17 16:33] VITALS: BP 171/92; PULSE 77; RESP 18; TEMP 36.6; O2SAT 95
[2024-11-17 16:35] LABS: Abs Immature Grans 0.02 10^3/uL (0.0-0.06); Absolute Basophil Count 0.02 10^3/uL (0.0-0.2); Absolute Eosinophil Count 0.16 10^3/uL (0.0-0.7); Absolute Lymphocyte Count 1.22 10^3/uL (1.2-3.4); Absolute Monocyte Count 0.31 10^3/uL (0.1-0.8); Absolute Neutrophil Count 3.35 10^3/uL (1.2-6.7); Basophils % 0.4 %; Eosinophils % 3.1 %; HCT 39.1 % (36.0-46.0); HGB 13.1 g/dL (11.2-15.7); Immature Grans % 0.4 %; MCH 32.3 pg (27.0-33.0); MCHC 33.5 % (32.0-36.0); MCV 96 fL (80-95); MPV 8.7 fL (8.0-11.0); Monocytes % 6.1 %; Platelet Count 206 10^3/uL (130-400); RBC 4.06 10^6/uL (3.93-5.22); RDW 12.9 % (11.7-14.6); RDW-SD 46.1 fL; WBC 5.08 10^3/uL (4.4-10.8)
--- NOTE | 2024-11-17 16:44 | DI.RAD_ITS ---
Exam(s) XR PORTABLE CHEST AP EXAM: XR PORTABLE CHEST AP CLINICAL HISTORY: SOB. TECHNIQUE: 2D digital imaging was performed. COMPARISON: CR XR CHEST 2V PA LATERAL from 06/25/2023 FINDINGS: Single AP portable view. Heart size is upper normal. The mediastinum is not widened. Lungs are clear. No infiltrates nor obvious pleural effusions. Right shoulder hardware again noted IMPRESSION: No acute pulmonary findings on this single AP portable view of the chest. DATA REPOSITORY: RADIATION DOSE DELIVERED:
[2024-11-17 16:48] LABS: PTT Activated 25.4 sec (23.6-32.8); Prothrombin Time 9.6 sec (9.1-11.1)
[2024-11-17 16:57] LABS: ALT 19 U/L (14-59); AST 16 U/L (15-37); Albumin 3.4 g/dL (3.4-5.0); Alkaline Phosphatase 93 U/L (46-116); Anion Gap 4.9 mmol/L (3-11); BUN 9 mg/dL (7-18); Bilirubin, Total 0.32 mg/dL (0.2-1.0); CO2 33.1 mmol/L (21.0-32.0); CREATININE 0.8 mg/dL (0.55-1.02); Calcium 8.7 mg/dL (8.5-10.1); Chloride 106 mmol/L (98-107); Estimated GFR 84.82 (mL/min/1.73m2); Glucose 95 mg/dL (74-106); NT-proBNP 207 pg/mL (<300); Potassium 4.1 mmol/L (3.5-5.1); Sodium 144 mmol/L (136-145); Total Protein 6.7 g/dL (6.4-8.2); Troponin I 12 ng/L (<or=51)
[2024-11-17 16:59] LABS: D-Dimer 688 ng/mlFEU (<500)
--- NOTE | 2024-11-17 17:00 | DI.CT_ITS ---
Exam(s) CT CHEST PE CTA EXAM: CT CHEST PE CTA CLINICAL HISTORY: SOB, hx of PE, elevated dimer. TECHNIQUE: Imaging Protocol: CT angiography of the chest was performed using pulmonary embolus cosmo col. Multi planar reconstructions were performed. CONTRAST MATERIAL: Intravenous: Omnipaque 350 Contrast volume: 100 cc COMPARISON: CT CT CHEST PE CTA from 05/10/2023 FINDINGS: CHEST: PULMONARY ARTERIES: There are no intraluminal filling defects to suggest acute pulmonary emboli. LUNGS: There are no infiltrates nor evidence of pulmonary infarction.. No ominous pulmonary nodules. No pleural effusions. MEDIASTINUM: There is no hilar nor mediastinal adenopathy. Visualized thyroid unremarkable. CARDIAC: Heart size is upper normal. There is no pericardial effusion.Caliber of the thoracic aorta is within normal limits. There is no significant shift of the interventricular septum. PARTIALLY VISUALIZED UPPERMOST ABDOMEN: No obvious findings OSSEOUS: No significant osseous lesions.Thoracic kyphosis from prior nonacute wedge fractures. No ac katharina fractures identified. There is indentation of the anterior cortex of the lower sacrum but doubtf ul for acute fracture. IMPRESSION: There is no evidence of acute pulmonary emboli. No evidence of pulmonary infarction.No infiltrates. No pleural effusions. Thoracic kyphosis. No acute fractures evident. Report called by myself to ER provider 11/17/2024 5:50 p.m. RADIATION DOSE DELIVERED: 117.93mGy.cm Total DLP DATA REPOSITORY: All CT scans at this facility are submitted to the National Radiology Data Registry (NRDR) Dose Index Registry (DIR) with the [employer] ([employer]). RADIATION OPTIMIZATION: All CT scans at this facility use at least one of these dose optimization te chniques: automated exposure control; mA and/or kV adjustment per patient size (includes targeted exa ms where dose is matched to clinical indication); or iterative reconstruction.
[2024-11-17 17:01] LABS: COVID-19 PCR Negative (Negative); Influenza A PCR Negative (Negative); Influenza B PCR Negative (Negative); RSV PCR Negative (Negative)
[2024-11-17 17:03] LABS: Source Nasopharynx
[2024-11-17] MEDS: Normal Saline - Diluent 50 ML VIAL IJ (17:15)
[2024-11-17] MEDS: Omnipaque 350 MG/ML 100 ML BTL IJ (17:15)
[2024-11-17 17:21] VITALS: BP 163/113; PULSE 78; RESP 18; O2SAT 97
[2024-11-17 17:48] LABS: Troponin I 7 ng/L (<or=51)
[2024-11-17 17:59] VITALS: BP 170/91; PULSE 67; RESP 18; O2SAT 96
[2024-11-17 18:06] VITALS: BP 170/91; PULSE 67; RESP 18; O2SAT 96
== END 2024-11-17 18:08 | disposition home or self-care (01) ==
PROVIDERS: Emergency Provider Registered Nurse Emergency; PCP Student in an Organized Health Care Education/Training Program
DX: R06.02 Shortness of breath (principal); J44.9 Chronic obstructive pulmonary disease, unspecified; I10 Essential (primary) hypertension; E66.9 Obesity, unspecified; Z86.711 Personal history of pulmonary embolism; Z79.899 Other long term (current) drug therapy; Z79.01 Long term (current) use of anticoagulants
CPT/HCPCS: 36415; 71275; 80053; 87637; 93005; 99285; 71045; 83735; 83880; 84484; 85025; 85379; 85610; 85730; 93010; J3490

== ENCOUNTER 2025-03-02 14:46 | Outpatient (REF) | payer MEDICAID, SELFPAY ==
[2025-03-02 16:03] LABS: Bilirubin Negative (Negative); Blood Large (Negative); Clarity Cloudy (Clear); Glucose Negative (Negative); Ketones Trace mg/dL (Negative); Leukocyte Esterase Small (Negative); Nitrite Positive (Negative); Specific Gravity 1.025 (1.005-1.025); pH 6.5 (5-8)
[2025-03-02 16:12] LABS: Bacteria Many HPF (Negative); C & S Indicated? C&S Done As Ordered; Casts Negative LPF (Negative); Crystals Negative HPF (Negative); Epithelial Cells Few HPF (Negative); Mucus Negative (Negative); WBC 20-50 HPF (0-5)
== END 2025-03-02 14:47 | disposition home or self-care (01) ==
LOC: NCHCN 14:46
PROVIDERS: PCP Student in an Organized Health Care Education/Training Program; Visit Provider Student in an Organized Health Care Education/Training Program
DX: N39.0 Urinary tract infection, site not specified (principal); B96.29 Other Escherichia coli [E. coli] as the cause of diseases classified elsewhere; R82.89 Other abnormal findings on cytological and histological examination of urine
CPT/HCPCS: 87077; 81003; 81015; 87086; 87186

== ENCOUNTER 2025-09-03 13:44 | Emergency (ER) | payer MEDICAID, SELFPAY ==
[2025-09-03 14:00] VITALS: BP 152/93; PULSE 80; RESP 16; TEMP 36.8
--- NOTE | 2025-09-03 15:14 | W.ED.GENAD ---
Discharge Plan Disposition Patient Disposition: Home Condition: Stable Discharge Details Clinical Impression: Dental infection Primary Care Provider: Javier Tyler ED Provider: Steven Calderon Home Meds and New Rx's Prescriptions: New amoxicillin-pot clavulanate 875-125 mg tablet 1 tab PO BID 10 Days Qty: 20 0RF No Action Eliquis 5 mg tablet 5 mg PO BID metoprolol tartrate 25 mg tablet 12.5 mg PO BID albuterol sulfate [Ventolin HFA] 90 mcg/actuation HFA aerosol inhaler 2 inh inhalation Q4H PRN Stiolto Respimat 2.5-2.5 mcg/actuation mist 2 inh inhalation DAILY lidocaine 1.8 % adhesive patch,medicated 1 patch topical DAILY Qty: 30 0RF Rx Instructions: leave on most painful area for up to 12 hrs buprenorphine-naloxone [Suboxone] 8-2 mg Film 1 film sublingual DAILY Combivent Respimat 20-100 mcg/actuation Mist 1 puff inhalation QID Qty: 1 0RF betamethasone valerate 0.1 % ointment 1 applic TOPICAL BID Patient Comments: APPLY A THIN LAYER TO AFFECTED AREA(S) 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 Referrals: Javier Tyler [Primary Care Provider, Medicine] Discharge Data Discharge Date/Time-TO BE ENTERED AT DEPARTURE: 09/03/25 15:44 HPI General Date/Time Provider Initiated Documentation: 09/03/25 14:15. HPI Narrative: 59 year-old female presents to ED today by POV/ambulating with a chief complaint of dental pain L lower molars with many prior extractions with onset for the past 3 days. Quality described as throbbing, no radiation to vocal changes, trismus, fever, difficulty swallowing, neck swelling. Severity is described as 4/10. Palliating factors include nothing specific attempted. Provoking factors include nothing specific. Patient not anticoagulated. Related Data Home Medications ?Medication ?Instructions ?Recorded ?Confirmed buprenorphine 8 mg-naloxone 2 mg 1 film sublingual DAILY 12/16/21 09/03/25 sublingual film (Suboxone) ipratropium 20 mcg-albuterol 100 1 puff inhalation QID #1 g 12/18/21 09/03/25 mcg/actuation mist for inhalation (Combivent Respimat) lidocaine 1.8 % topical patch 1 patch topical DAILY #30 ea 06/25/23 09/03/25 apixaban 5 mg tablet (Eliquis) 5 mg PO BID 03/16/24 09/03/25 albuterol sulfate 90 mcg/actuation 2 inh inhalation Q4H PRN 10/25/24 09/03/25 aerosol inhaler (Ventolin HFA) metoprolol tartrate 25 mg tablet 12.5 mg PO BID 10/25/24 09/03/25 tiotropium 2.5 mcg-olodaterol 2.5 2 inh inhalation DAILY 10/25/24 09/03/25 mcg/actuation mist for inhalation (Stiolto Respimat) betamethasone valerate 0.1 % 1 applic topical BID 11/17/24 09/03/25 topical ointment amoxicillin 875 mg-potassium 1 tab PO BID 10 days #20 tabs 09/03/25 clavulanate 125 mg tablet Previous Rx's ?Medication ?Instructions ?Recorded ipratropium 20 mcg-albuterol 100 1 puff inhalation QID #1 g 12/18/21 mcg/actuation mist for inhalation (Combivent Respimat) lidocaine 1.8 % topical patch 1 patch topical DAILY #30 ea 06/25/23 amoxicillin 875 mg-potassium 1 tab PO BID 10 days #20 tabs 09/03/25 clavulanate 125 mg tablet Allergies Allergy/AdvReac Type Severity Reaction Status Date / Time aspirin Allergy Unknown Other (See Verified 09/03/25 14:07 Comment) codeine Allergy Unknown Other (See Verified 09/03/25 14:07 Comment) General Stated Complaint: DentalOral SADIA: 4 Review of Systems All systems reviewed & are unremarkable except as noted in HPI and below Exam Narrative Exam Narrative: GENERAL APPEARANCE: Well-nourished, non-toxic, awake and alert, atraumatic, no acute distress. SKIN: Warm, pink, dry, intact, without rashes/lesions/ulcerations. HEAD: Normocephalic, atraumatic, normal hair distribution for gender/age. EYES: Normal conjunctiva, no exudates on lids/lashes. ENT: Nares patent, no circumoral cyanosis, no facial swelling, no visible gingival abscess to the left lower gums, uvula midline, no submandibular swelling, no vocal changes, no trismus, many prior extractions NECK: Supple, trachea midline, painless cervical ROM. LUNGS/CHEST: Non-labored respirations, normal A/P diameter, symmetrical expansion, no chest wall deformity HEART (CV/PV): No peripheral edema, no JVD. ABDOMEN: Soft, non-distended, no guarding. MSK: Normal ROM, no swelling/deformity to bilateral UEs or LEs, moving all extremities without weakness, no cyanosis, spine midline without tenderness, normal curvature. NEURO: Mental Status AAOx4 - alert to person, place, time, events No facial droop, no forehead involvement. Motor: No focal weakness - strength 5/5 in bilateral UEs and LEs, proximal and distal, symmetric. Sensory: sensation intact to light touch globally. Gait normal: patient ambulated without ataxia into ED room. PSYCH: euthymic, cooperative, pleasant, appropriate speech Course Vital Signs Vital signs: Vital Signs Temperature 36.8 C 09/03/25 14:00 Pulse 80 09/03/25 14:00 Respiratory Rate 16 09/03/25 14:00 Blood Pressure 152/93 H 09/03/25 14:00 Temperature 36.8 C 09/03/25 14:00 Temperature Source Oral 09/03/25 14:00 Pulse 80 09/03/25 14:00 Respiratory Rate 16 09/03/25 14:00 Blood Pressure 152/93 H 09/03/25 14:00 Blood Pressure Position Sitting 09/03/25 14:00 Oxygen Delivery Method Room Air 09/03/25 14:00 Oxygen Flow Rate 0 09/03/25 14:00 Pain Level 9 09/03/25 14:00 Medical Decision Making This dictation utilizes [id number] dictation software and may contain unedited grammatical errors. 59 year-old female presents to ED today by POV/ambulating with a chief complaint of dental pain L lower molars with many prior extractions with onset for the past 3 days. Quality described as throbbing, no radiation to vocal changes, trismus, fever, difficulty swallowing, neck swelling. Severity is described as 4/10. Palliating factors include nothing specific attempted. Provoking factors include nothing specific. Patients' medical history: Hypertension, obesity, COPD, sleep apnea, history of cardiomegaly and PE. Family and social history: Noncontributory. Pertinent exam findings / vital signs include no visible gingival abscess to the left lower gums, uvula midline, no submandibular swelling, no vocal changes, no trismus, many prior extractions. Differential / pathologies of concern include dental infection. Diagnostic studies of: -None. Interventions of: -Rx for Augmentin. ED Course/Assessment/Plan: 59-year-old female presents with 3 days of left-sided dental pain with many prior extractions and diffuse dental caries, has no signs of deep space infection, no vocal changes no trismus, recommend Augmentin and Tylenol and ibuprofen as well as salt water gargles and following up with a dentist, strict return criteria for any trismus or vocal changes. Findings not consistent with deep space infection, gingival abscess. Disposition of Dental Infection. Patient verbalized understanding of the plan and return to ED criteria and engaged in shared decision making. Medical Records Medical records reviewed: Yes I reviewed the patient's medical records. 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 Pain in thoracic spine Cellulitis of right lower limb Cardiomegaly Presbyopia Pulmonary embolism (~12/16/21) Morbid obesity 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, on suboxone Hypoxia Pneumonia due to 2019 novel coronavirus SARS-CoV-2 positive COPD (chronic obstructive pulmonary disease) Surgical History H/O total hysterectomy History of femur fracture hardware in femur Family History Mother Diabetes Father Hypertension Social History Smoking/Tobacco Use Status: Current every day Tobacco Type: e-cigarettes Counseling given: provider counseling and support medications Smoking risk assessment performed?: Yes Alcohol Intake: former Drug use: Current Sobriety Substance use type: former substance user Details: Currently on Suboxone Housing: apartment Do you feel safe at home: Yes Do you feel safe in your relationship?: Yes
[2025-09-03 15:38] VITALS: BP 152/93; PULSE 80; RESP 16; TEMP 36.8
== END 2025-09-03 15:44 | disposition home or self-care (01) ==
PROVIDERS: Emergency Provider Physician Assistant; PCP Student in an Organized Health Care Education/Training Program
DX: K04.7 Periapical abscess without sinus (principal)
CPT/HCPCS: 99283 ×2

== ENCOUNTER 2025-09-18 14:05 | Emergency (ER) | payer MEDICAID, SELFPAY ==
[2025-09-18 14:08] VITALS: BP 152/87; PULSE 84; RESP 20; TEMP 36.2; O2SAT 90
[2025-09-18 14:14] VITALS: BP 152/87; PULSE 84; RESP 20; TEMP 36.2; O2SAT 90
--- NOTE | 2025-09-18 14:30 | DI.US_ITS ---
Exam(s) US LOWER EXTREMITY VENOUS RT EXAM: US LOWER EXTREMITY VENOUS RT CLINICAL HISTORY: c/f DVT. TECHNIQUE: Lower extremity venous ultrasound performed using grayscale, color- flow, and spectral Doppler analysis. COMPARISON: No exams were available for comparison FINDINGS: The common femoral, femoral and popliteal veins demonstrate normal compressibility, augmentation, and color Doppler. The posterior tibial and peroneal veins are patent. No saphenous vein thrombosis or other superficial venous thrombosis is seen. No hematoma or Solis's cyst is seen. There is edema in the subcutaneous fat of the lower leg. IMPRESSION: Lower leg edema. No evidence of DVT. DATA REPOSITORY:
--- NOTE | 2025-09-18 15:12 | W.ED.GENAD ---
Discharge Plan Disposition Patient Disposition: Home Discharge Details Clinical Impression: Venous stasis dermatitis, Hx of mcfp use of blood thinners, Cellulitis Primary Care Provider: Javier Tyler ED Provider: Jonah Valderrama Home Meds and New Rx's Prescriptions: New Eliquis 5 mg tablet 5 mg PO BID Qty: 90 0RF No Action Eliquis 5 mg tablet 5 mg PO BID metoprolol tartrate 25 mg tablet 12.5 mg PO BID albuterol sulfate [Ventolin HFA] 90 mcg/actuation HFA aerosol inhaler 2 inh inhalation Q4H PRN Stiolto Respimat 2.5-2.5 mcg/actuation mist 2 inh inhalation DAILY lidocaine 1.8 % adhesive patch,medicated 1 patch topical DAILY Qty: 30 0RF Rx Instructions: leave on most painful area for up to 12 hrs buprenorphine-naloxone [Suboxone] 8-2 mg Film 1 film sublingual DAILY Combivent Respimat 20-100 mcg/actuation Mist 1 puff inhalation QID Qty: 1 0RF betamethasone valerate 0.1 % ointment 1 applic TOPICAL BID Patient Comments: 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 Otherwise your exam is reassuring the skin changes are likely due to a chronic process most likely chronic venous stasis. Your ultrasound today is negative for blood clot however it is very important that you remain taking your apixaban which is a blood thinner to protect you from developing a stroke from your chronic atrial fibrillation. Please return emergency department if you develop any new or worsening symptoms. Please follow-up with your primary care provider regarding your visit to the emergency department today. Be sure to discuss results of all test performed here today to include radiology, and laboratory testing as well as results for any pending cultures. Should your symptoms worsen, or if you develop new concerning symptoms, please return immediately emergency department for further evaluation. HPI General Date/Time Provider Initiated Documentation: 09/18/25 14:11. HPI Narrative: MDM/Narrative: Initial Assessment: 59-year-old female with leg swelling and bloody discharge from blisters post-fall. Increased swelling, redness, pain, and chills noted. No tachycardia, hypotension, to suggest sepsis. Suspect patient's relative hypoxia is her normal due to history of COPD consistent with prior visits. Patient is otherwise ambulatory with suspicion for acute PE Differential Diagnosis: - Chronic venous stasis: Monitor wound healing. Given high risk for staph infection, empirically treat with antibiotics - Blood clot: Order ultrasound. ED Course: - Ultrasound of leg ordered - Treated with Keflex 500 mg p.o. Clinical Impression: - Chronic venous stasis - Contusion - Concern for lower extremity cellulitis Follow-Up: Follow up with PCP. Patient Education: Antibiotics prescribed. Importance of continuing prescribed medication was discussed. Patient was supplied a refill of apixaban This document was created with assistance from [employer]Information Management Manager. The patient consented to its use. Disposition: Home HPI: The patient, a 59-year-old female with a history of atrial fibrillation, presents with lower extremity edema and hemorrhagic exudate from bullae. The patient reports that two weeks ago, she experienced a fall at [facility], resulting in the formation of blisters which are now exuding bloody fluid. She has noted increased swelling, erythema, and pain in the affected area. Additionally, she reports experiencing chills but denies any fever, night sweats, cough, emesis, nausea, or diarrhea. The patient is not utilizing compression stockings. She is prescribed Eliquis but admits to non-adherence with the medication regimen. She also reports experiencing dyspnea. ROS: Negative besides as mentioned above Exam: Vital signs: Reviewed. General Appearance: Alert and oriented. No acute distress. HEENT: NCAT, EOMI, not icteric. External ears normal. No rhinorrhea. Moist mucous membranes. Neck: Supple, full range of motion, no observable masses, No meningeal sign. Respiratory: No abnormal breath sounds. Cardiovascular: RRR, no edema. Gastrointestinal: Soft, nondistended, No rebound tenderness. Back: No midline tenderness to palpation or palpable step-offs of the C/T/L spine. Musculoskeletal: Increased leg swelling and tenderness. Skin: Changes consistent with stasis of bilateral lower extremities. Right lower extremity with circumferential erythema, induration, and there are 2 superficial ulcerations over the right anterior tib-fib region, with scant serous discharge, 1 measuring approximately 2 inches in diameter and measuring 3 inches in diameter, 1 with a small 1 x 2 cm area of scabbing Neurological: Normal Gait, Grossly intact. Psychiatric: Appropriate for situation. Radiology: Exam(s) US LOWER EXTREMITY VENOUS RT EXAM: US LOWER EXTREMITY VENOUS RT CLINICAL HISTORY: c/f DVT. TECHNIQUE: Lower extremity venous ultrasound performed using grayscale, color-flow, and spectral Doppler analysis. COMPARISON: No exams were available for comparison FINDINGS: The common femoral, femoral and popliteal veins demonstrate normal compressibility, augmentation, and color Doppler. The posterior tibial and peroneal veins are patent. No saphenous vein thrombosis or other superficial venous thrombosis is seen. No hematoma or Solis's cyst is seen. There is edema in the subcutaneous fat of the lower leg. IMPRESSION: Lower leg edema. No evidence of DVT. DATA REPOSITORY: Related Data Home Medications ?Medication ?Instructions ?Recorded ?Confirmed buprenorphine 8 mg-naloxone 2 mg 1 film sublingual DAILY 12/16/21 09/18/25 sublingual film (Suboxone) ipratropium 20 mcg-albuterol 100 1 puff inhalation QID #1 g 12/18/21 09/18/25 mcg/actuation mist for inhalation (Combivent Respimat) lidocaine 1.8 % topical patch 1 patch topical DAILY #30 ea 06/25/23 09/18/25 apixaban 5 mg tablet (Eliquis) 5 mg PO BID 03/16/24 09/18/25 albuterol sulfate 90 mcg/actuation 2 inh inhalation Q4H PRN 10/25/24 09/18/25 aerosol inhaler (Ventolin HFA) metoprolol tartrate 25 mg tablet 12.5 mg PO BID 10/25/24 09/18/25 tiotropium 2.5 mcg-olodaterol 2.5 2 inh inhalation DAILY 10/25/24 09/18/25 mcg/actuation mist for inhalation (Stiolto Respimat) betamethasone valerate 0.1 % 1 applic topical BID 11/17/24 09/18/25 topical ointment apixaban 5 mg tablet (Eliquis) 5 mg PO BID #90 tabs 09/18/25 Previous Rx's ?Medication ?Instructions ?Recorded ipratropium 20 mcg-albuterol 100 1 puff inhalation QID #1 g 12/18/21 mcg/actuation mist for inhalation (Combivent Respimat) lidocaine 1.8 % topical patch 1 patch topical DAILY #30 ea 06/25/23 apixaban 5 mg tablet (Eliquis) 5 mg PO BID #90 tabs 09/18/25 Allergies Allergy/AdvReac Type Severity Reaction Status Date / Time aspirin Allergy Unknown Other (See Verified 09/18/25 14:11 Comment) codeine Allergy Unknown Other (See Verified 09/18/25 14:11 Comment) General Stated Complaint: Cellulitis SADIA: 3 Course Vital Signs Vital signs: Vital Signs Temperature 36.2 C L 09/18/25 14:08 Pulse 84 09/18/25 14:08 Respiratory Rate 20 09/18/25 14:08 Blood Pressure 152/87 H 09/18/25 14:08 Pulse Oximetry 90 L 09/18/25 14:08 Temperature 36.2 C L 09/18/25 14:14 Temperature Source Temporal Artery Scan 09/18/25 14:14 Pulse 84 09/18/25 14:14 Respiratory Rate 20 09/18/25 14:14 Blood Pressure 152/87 H 09/18/25 14:14 Pulse Oximetry 90 L 09/18/25 14:14 PFSH All Active Problems (Updated 09/18/25 @ 15:19 by Jonah Valderrama MD) Cellulitis (Acute) 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) Dental infection (Acute) Obesity (Chronic) Atrial flutter, paroxysmal (Acute) COPD with acute exacerbation (Acute) Back pain (Acute) Venous stasis dermatitis (Chronic) Smoking (Acute) Hypertension (Chronic) Vitamin D deficiency (Acute) Dysuria (Acute) Lymphedema (Acute) Screening for colon cancer (Acute) Edema of both lower extremities (Acute) Multifocal pneumonia (Acute) Medical History Sleep apnea Essential hypertension Candidiasis of skin Osteoarthritis 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 Pain in thoracic spine Cellulitis of right lower limb Cardiomegaly Presbyopia Pulmonary embolism (~12/16/21) Morbid obesity 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, on suboxone Hypoxia Pneumonia due to 2019 novel coronavirus SARS-CoV-2 positive COPD (chronic obstructive pulmonary disease) Surgical History H/O total hysterectomy History of femur fracture hardware in femur Family History Mother Diabetes Father Hypertension Social History Smoking/Tobacco Use Status: Current every day Tobacco Type: e-cigarettes Counseling given: provider counseling and support medications Smoking risk assessment performed?: Yes Alcohol Intake: former Drug use: Current Sobriety Substance use type: former substance user Details: Currently on Suboxone Housing: apartment Do you feel safe at home: Yes Do you feel safe in your relationship?: Yes
[2025-09-18] MEDS: Apixaban 5 MG TAB PO (15:38)
[2025-09-18] MEDS: Cephalexin 500 MG CAP PO (15:38)
[2025-09-18 15:44] VITALS: BP 164/92; PULSE 83; RESP 14; TEMP 36.8; O2SAT 100
== END 2025-09-18 15:45 | disposition home or self-care (01) ==
PROVIDERS: Emergency Provider General Practice; PCP Student in an Organized Health Care Education/Training Program
DX: L03.115 Cellulitis of right lower limb (principal); I87.2 Venous insufficiency (chronic) (peripheral)
CPT/HCPCS: 99284 ×2; 93971

== ENCOUNTER 2025-10-04 11:53 | Inpatient (IN) | payer MEDICAID, SELFPAY ==
[2025-10-04] VITALS (31 sets, daily range): BP systolic 105–191; BP diastolic 62–95; PULSE 56–93; RESP 12–20; TEMP 36–36.9; O2SAT 82–99
--- NOTE | 2025-10-04 12:00 | DI.CT_ITS ---
Exam(s) CT CHEST PE CTA EXAM: CT CHEST PE CTA CLINICAL HISTORY: SOB, hx of PE, missing doses of thinner. TECHNIQUE: Imaging Protocol: Axial CT angiography was performed with multi- slice acquisition and multi-planar and/or 3D reconstructions. Lung Computer Aided Detection (CAD) was utilized. CONTRAST MATERIAL: Intravenous: Omnipaque 350 contrast volume:100 mL COMPARISON: CT CT CHEST PE CTA from 11/17/2024 FINDINGS: Tracheobronchial tree: Patent where visualized. No bronchiectasis. Pulmonary parenchyma: No consolidation or dominant measurable mass. No architectural distortion. Pulmonary Arteries: No evidence of filling defect to suggest pulmonary emboli. Mediastinum and Echo: No dominant adenopathy or fluid collection. The esophagus is unremarkable. Visualized thyroid gland: Unremarkable. Pleura: No effusion or pneumothorax. Heart: The heart is not dilated. Coronary artery calcifications are present. No pericardial effusion. Aorta: Thoracic aorta non-dilated. No evidence of dissection. Atherosclerotic calcification is present. Upper abdomen: Unremarkable. Soft tissues: Unremarkable. Bones: Within normal limits for the patient's age.There is fusion of the T7 and T8 vertebral bodies. There are old right rib fracture deformities. IMPRESSION: 1. No evidence of pulmonary embolism, thoracic aortic dissection or aneurysm. 2. There is no acute pulmonary process. RADIATION DOSE DELIVERED: 167.65mGy.cm Total DLP DATA REPOSITORY: All CT scans at this facility are submitted to the National Radiology Data Registry (NRDR) Dose Index Registry (DIR) with the [employer] (ACR). RADIATION OPTIMIZATION: All CT scans at this facility use at least one of these dose optimization techniques: automated exposure control; mA and/or kV adjustment per patient size (includes targeted exams where dose is matched to clinical indication); or iterative reconstruction.
--- NOTE | 2025-10-04 12:00 | RT.EKG_ITS ---
APPROVED REPORT Exam: Resting ECG Reason for Exam: SOB Patient Location: E HR:75 bpm ECG Measurements Heart Rate 75 AXIS OK 122 P 55 QRSd 89 QRS 28 QT 384 T 70 QTc 430 Conclusion Sinus rhythm...normal P axis, V-rate 60- 99 Physician: Unchanged, No STEMI
[2025-10-04] MEDS: methylPREDNISolone SUCC 125 MG VIAL IVP (12:21)
[2025-10-04 12:35] LABS: BE (Venous) 10 mmol/L (-2-3); HCO3 (Venous) 36 mmol/L (23-28); O2 Sat (Venous) 61 %; TCO2 (Venous) 33 mmol/L (24-29); pO2 (Venous) 34 mmHg
[2025-10-04 12:38] LABS: Abs Immature Grans 0.03 10^3/uL (0.0-0.06); HCT 40.0 % (36.0-46.0); HGB 13.1 g/dL (11.2-15.7); Immature Grans % 0.6 %; MCH 31.7 pg (27.0-33.0); MCHC 32.8 % (32.0-36.0); MCV 97 fL (80-95); MPV 8.7 fL (8.0-11.0); Platelet Count 196 10^3/uL (130-400); RBC 4.13 10^6/uL (3.93-5.22); RDW 14.0 % (11.7-14.6); RDW-SD 49.1 fL; WBC 5.14 10^3/uL (4.4-10.8); pCO2 (Venous) 68 mmHg (41-51)
[2025-10-04 12:46] LABS: INR 1.0 (0.9-1.1); PTT Activated 25.0 sec (20.6-30.2); Prothrombin Time 10.4 sec (9.1-11.1)
[2025-10-04 13:02] LABS: ALT 17 U/L (14-59); AST 14 U/L (15-37); Albumin 3.7 g/dL (3.4-5.0); Alkaline Phosphatase 90 U/L (46-116); Anion Gap 4.0 mmol/L (3-11); BUN 11 mg/dL (7-18); Bilirubin, Total 0.7 mg/dL (0.2-1.0); CO2 36.0 mmol/L (21.0-32.0); Calcium 8.8 mg/dL (8.5-10.1); Chloride 101 mmol/L (98-107); Glucose 106 mg/dL (74-106); Potassium 4.1 mmol/L (3.5-5.1); Sodium 141 mmol/L (136-145); Total Protein 7.2 g/dL (6.4-8.2); Troponin I 15 ng/L (<or=51)
--- NOTE | 2025-10-04 13:09 | W.ED.GENAD ---
Discharge Plan Disposition Patient Disposition: Admit to [facility] Condition: Stable Discharge Details Clinical Impression: Acute hypoxemic respiratory failure, COPD exacerbation Primary Care Provider: Javier Tyler ED Provider: Steven Aguiar Home Meds and New Rx's Prescriptions: No Action Eliquis 5 mg tablet 5 mg PO BID albuterol sulfate [Ventolin HFA] 90 mcg/actuation HFA aerosol inhaler 2 inh inhalation Q4H PRN buprenorphine-naloxone [Suboxone] 8-2 mg Film 1 film sublingual DAILY Combivent Respimat 20-100 mcg/actuation Mist 1 puff inhalation QID Qty: 1 0RF betamethasone valerate 0.1 % ointment 1 applic TOPICAL BID Patient Comments: APPLY A THIN LAYER TO AFFECTED AREA(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 HPI Narrative: 59-year-old female with a past medical history of COPD, paroxysmal atrial flutter, history of PEs during COVID, currently on Eliquis (but who also states that she has missed a few doses here and there) presents today for shortness of breath. Patient states been present for the last week, she has had cough but not productive. She has had an increased temperature, and worsening shortness of breath and difficulty breathing. She does have home oxygen to use occasionally at home. EMS was called today and she was noted to be 77% on room air on their arrival, she was had severe wheezes and was started on a DuoNeb and brought to the ER. Aside for some chest pain and discomfort with breathing she denies any vomiting or diarrhea, she denies any recent long trips or surgeries or procedures. No other complaints at this time. No other modifying factors. Related Data Home Medications Medication Instructions Recorded Confirmed buprenorphine 8 mg-naloxone 2 mg 1 film sublingual DAILY 12/16/21 10/04/25 sublingual film (Suboxone) ipratropium 20 mcg-albuterol 100 1 puff inhalation QID #1 g 12/18/21 10/04/25 mcg/actuation mist for inhalation (Combivent Respimat) apixaban 5 mg tablet (Eliquis) 5 mg PO BID 03/16/24 10/04/25 albuterol sulfate 90 mcg/actuation 2 inh inhalation Q4H PRN 10/25/24 10/04/25 aerosol inhaler (Ventolin HFA) betamethasone valerate 0.1 % 1 applic topical BID 11/17/24 10/04/25 topical ointment Previous Rx's Medication Instructions Recorded ipratropium 20 mcg-albuterol 100 1 puff inhalation QID #1 g 12/18/21 mcg/actuation mist for inhalation (Combivent Respimat) Allergies Allergy/AdvReac Type Severity Reaction Status Date / Time aspirin Allergy Unknown Other (See Verified 10/04/25 12:01 Comment) codeine Allergy Unknown Other (See Verified 10/04/25 12:01 Comment) General Stated Complaint: SOB SADIA: 3 Exam Narrative Exam Narrative: 1.Const: Well-nourished, Well-developed, appearing stated age 2.Eyes: PERRL, no conjunctival injection, and symmetrical lids. 3.ENT: Atraumatic external nose and ears. Moist MM. Neck: Symmetric, trachea midline, No thyromegaly. 4.CVS: +S1/S2, Peripheral pulses 2+ and equal in all extremities. Brisk capillary refill in all extremities. 5.RESP: Wheezes and rhonchi throughout. No crackles. 6.GI: Soft, Nontender/Nondistended, No hepatosplenomegaly. No guarding or rebound. 7.MSK: Normocephalic/Atraumatic, Extremities w/o deformity or ttp No cyanosis or clubbing, Normal movement of all extremities. No calf tenderness 8.Skin: Warm, Dry. No rashes or lesions. 9.Neuro: sports medicine specialist II-XII grossly intact. Sensation grossly intact, no focal neurologic deficits. 10.Psych: (AAO) x3. Appropriate mood and affect Course Vital Signs Vital signs: Vital Signs Temperature 36.9 C 10/04/25 11:57 Pulse 90 10/04/25 11:57 Respiratory Rate 20 10/04/25 11:57 Blood Pressure 191/95 H 10/04/25 11:57 Pulse Oximetry 99 10/04/25 11:57 Temperature 36.9 C 10/04/25 12:00 Pulse 90 10/04/25 12:00 Respiratory Rate 20 10/04/25 12:00 Respiratory Effort Labored, Incrsd Work of Breathing 10/04/25 12:20 Respiratory Depth Shallow 10/04/25 12:20 Blood Pressure 191/95 H 10/04/25 12:00 Blood Pressure Position Sitting 10/04/25 12:00 Pulse Oximetry 99 10/04/25 12:00 Oxygen Delivery Method Room Air 10/04/25 12:00 Oxygen Flow Rate 0 10/04/25 12:00 Lab/Test Results Lab/Test Results: Laboratory Tests Range/Units 10/04/25 12:18 WBC (4.4-10.8) 10^3/uL 5.14 RBC (3.93-5.22) 10^6/uL 4.13 Hgb (11.2-15.7) g/dL 13.1 Hct (36.0-46.0) % 40.0 MCV (80-95) fL 97 H MCH (27.0-33.0) pg 31.7 MCHC (32.0-36.0) % 32.8 RDW (11.7-14.6) % 14.0 Plt Count (130-400) 10^3/uL 196 MPV (8.0-11.0) fL 8.7 Immature Gran % % 0.6 Neutrophils % % 64.8 Lymphocytes % % 20.0 Monocytes % % 4.9 Eosinophils % % 9.1 Basophils % % 0.6 Nucleated RBC % (0.0-0.3) % 0.0 Absolute Neutrophils (1.2-6.7) 10^3/uL 3.33 Absolute Lymphocytes (1.2-3.4) 10^3/uL 1.03 L Absolute Monocytes (0.1-0.8) 10^3/uL 0.25 Absolute Eosinophils (0.0-0.7) 10^3/uL 0.47 Absolute Basophils (0.0-0.2) 10^3/uL 0.03 PT (9.1-11.1) sec 10.4 INR (0.9-1.1) 1.0 APTT (20.6-30.2) sec 25.0 VBG pH (7.31-7.41) 7.33 VBG pCO2 (41-51) mmHg 68 H* VBG pO2 mmHg 34 VBG HCO3 (23-28) mmol/L 36 H VBG Total CO2 (24-29) mmol/L 33 H VBG O2 Saturation % 61 VBG Base Excess (-2-3) mmol/L 10 H Sodium (136-145) mmol/L 141 Potassium (3.5-5.1) mmol/L 4.1 Chloride (98-107) mmol/L 101 Carbon Dioxide (21.0-32.0) mmol/L 36.0 H Anion Gap (3-11) mmol/L 4.0 BUN (7-18) mg/dL 11 Creatinine (0.55-1.02) mg/dL 0.7 Est GFR (CKD-EPI 2020) (mL/min/1.73m2) 98.95 Glucose (74-106) mg/dL 106 Calcium (8.5-10.1) mg/dL 8.8 Total Bilirubin (0.2-1.0) mg/dL 0.7 AST (15-37) U/L 14 L ALT (14-59) U/L 17 Alkaline Phosphatase (46-116) U/L 90 Troponin I (<or=51) ng/L 15 NT-Pro-B Natriuret Pep (<300) pg/mL 314 H Total Protein (6.4-8.2) g/dL 7.2 Albumin (3.4-5.0) g/dL 3.7 Medical Decision Making 59-year-old female with a past medical history of COPD, paroxysmal atrial flutter, history of PEs during COVID, currently on Eliquis (but who also states that she has missed a few doses here and there) presents today for shortness of breath. Patient states been present for the last week, she has had cough but not productive. She has had an increased temperature, and worsening shortness of breath and difficulty breathing. She does have home oxygen to use occasionally at home. EMS was called today and she was noted to be 77% on room air on their arrival, she was had severe wheezes and was started on a DuoNeb and brought to the ER. Aside for some chest pain and discomfort with breathing she denies any vomiting or diarrhea, she denies any recent long trips or surgeries or procedures. No other complaints at this time. No other modifying factors. Exam demonstrates diffuse wheezes and rhonchi, oxygenation stable while on DuoNeb, no calf tenderness. Differential includes PE secondary to her incomplete adherence with Eliquis, COPD exacerbation, or pneumonia. Will evaluate for these etiologies monitor closely and reassess. Will continue to administer DuoNebs, keep the patient on 2L+ to maintain O2 saturation over 92%. Will give Solu-Medrol, monitor closely and reassess. 2:11 PM On reassessment patient remains with an oxygen around 88% on 2 L. She still has a notable significant audible wheeze after multiple DuoNebs. While she does sound slightly improved, symptomatology is still quite persistent. Although she does not regularly use oxygen at home, we did get her up and ambulated her on 3 L and she drops down to the high 80s after about [address] scan shows no evidence of pulmonary embolism or pneumonia. Labs show evidence of an elevated pCO2 at 68 with a normal pH of 7.33 on VBG, bicarb is 36, she seems to be compensated well at this stage. Electrolytes stable, renal function stable, troponin stable, proBNP benign at 314. COVID flu and RSV negative. With the patient's persistent wheezes despite multiple DuoNebs, her persistent hypoxemia with mild ambulation even on supplemental O2, I do feel that she would benefit from admission and continued observation breathing treatments and steroids. We will contact the hospitalist for admission. Discussed the case with Dr. Lizarraga, he agrees with the assessment and plan. I have extensively reviewed the treatment plan with the patient. I have addressed all patient concerns at this time. I have also discussed the plan with the admitting physician and they agree with the current assessment and plan and have agreed to assume responsibility for the patient. All parties demonstrate verbal understanding and agreement with our assessment and plan at this time. The documentation in this chart was dictated using [employer] dictation software. Please excuse any dictation errors. FINDINGS: Tracheobronchial tree: Patent where visualized. No bronchiectasis. Pulmonary parenchyma: No consolidation or dominant measurable mass. No architectural distortion. Pulmonary Arteries: No evidence of filling defect to suggest pulmonary emboli. Mediastinum and Echo: No dominant adenopathy or fluid collection. The esophagus is unremarkable. Visualized thyroid gland: Unremarkable. Pleura: No effusion or pneumothorax. Heart: The heart is not dilated. Coronary artery calcifications are present. No pericardial effusion. Aorta: Thoracic aorta non-dilated. No evidence of dissection. Atherosclerotic calcification is present. Upper abdomen: Unremarkable. Soft tissues: Unremarkable. Bones: Within normal limits for the patient's age.There is fusion of the T7 and T8 vertebral bodies. There are old right rib fracture deformities. IMPRESSION: 1. No evidence of pulmonary embolism, thoracic aortic dissection or aneurysm. 2. There is no acute pulmonary process. Critical Care Time Critical Care Time Critical Care Time: Yes Total Critical Care Time: 45 Attestation: Upon my evaluation, this patient had a high probability of imminent or life-threatening deterioration, which required my direct attention, intervention, and personal management. I have personally provided 45 minutes of critical care time exclusive of time spent on separately billable procedures. Time includes review of laboratory data, radiology results, discussion with consultants, and monitoring for potential decompensation. Interventions were performed as documented. [facility] All Active Problems (Updated 10/04/25 @ 15:20 by Steven Aguiar DO) COPD exacerbation (Acute) Acute hypoxemic respiratory failure (Acute) Cellulitis (Acute) Hx of long-term use of blood thinners (Acute) Obesity (Chronic) Atrial flutter, paroxysmal (Acute) COPD with acute exacerbation (Acute) Back pain (Acute) Venous stasis dermatitis (Chronic) Smoking (Acute) Hypertension (Chronic) Vitamin D deficiency (Acute) Dysuria (Acute) Lymphedema (Acute) Screening for colon cancer (Acute) Edema of both lower extremities (Acute) Multifocal pneumonia (Acute) Medical History Sleep apnea Essential hypertension Candidiasis of skin Osteoarthritis 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 Pain in thoracic spine Cellulitis of right lower limb Cardiomegaly Presbyopia Pulmonary embolism (~12/16/21) Morbid obesity 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, on suboxone Hypoxia Pneumonia due to 2019 novel coronavirus SARS-CoV-2 positive COPD (chronic obstructive pulmonary disease) Surgical History H/O total hysterectomy History of femur fracture hardware in femur Family History Mother Diabetes Father Hypertension Social History Smoking/Tobacco Use Status: Current every day Tobacco Type: e-cigarettes Counseling given: provider counseling and support medications Smoking risk assessment performed?: Yes Alcohol Intake: former Drug use: Current Sobriety Substance use type: former substance user Details: Currently on Suboxone Housing: apartment Do you feel safe at home: Yes Do you feel safe in your relationship?: Yes
[2025-10-04] MEDS: Normal Saline Flush 10 ML SYR IVP ×2 (13:15→21:20)
[2025-10-04] MEDS: Omnipaque 350 MG/ML 100 ML BTL IJ (13:16)
[2025-10-04] MEDS: Normal Saline - Diluent 50 ML VIAL IJ (13:16)
[2025-10-04 13:18] LABS: COVID-19 PCR Negative (Negative); RSV PCR Negative (Negative)
[2025-10-04] MEDS: Albuterol/Ipratropium 3 ML UPD VIAL UPD ×3 (14:36→22:37)
--- NOTE | 2025-10-04 14:45 | W.PM.HP.N ---
Date of service: 10/04/25 Time of Service: 16:00 Assessment and Plan Assessment and plan (1) COPD with acute exacerbation: Status: Acute Assessment and plan: -Continue steroids (transitioned to PO prednisone) and scheduled duonebs with PRN albuterol. (2) Acute respiratory failure with hypoxia and hypercarbia: Status: Resolved Assessment and plan: -continue supplemental O2 as needed -see above, secondary to COPD exacerbation (3) Drug abuse in remission: Assessment and plan: -Continue home medication regimen (suboxone) History of Present Illness Narrative: Carmen is a 59 year old female with history of HTN, COPD, paroxysmal aflutter, obesity, history of PE during COVID, chronic anticoagulation (not fully compliant, admits to multiple missed doses of Eliquis) and venous stasis/lower extremity edema who presented to the emergency dept today for evaluation of shortness of breath. She reports SOB with nonproductive cough x 1 week, with tactile fever and occasional headache. Says she has had increased shortness of breath and dizziness with ambulation that has been progressing over the week. Denies associated syncope, congestion, sore throat, vomiting, abdominal pains, change in bowel or bladder function, change in baseline pedal edema. Today pt with increased difficulty breathing and chest discomfort; was noted by EMS to have hypoxia with O2 sat 77% on RA with severe wheezing. ED workup notable for elevated pCO2 (68) with pH 7.33. Slightly elevated BNP (314). Workup otherwise, with reassuring CBC, CMP, troponins, and unremarkable CT chest. While in the ED, Carmen received multiple duonebs and solumedrol IV, continued to have persistent hypoxemia with mild ambulation. Carmen arrives to the med surg unit comfortable, reports she is comfortable and feels like her breathing has improved. She denies chest pain or shortness of breath at this time. 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 (Acute) Obesity (Chronic) Atrial flutter, paroxysmal (Acute) COPD with acute exacerbation (Acute) Back pain (Acute) Venous stasis dermatitis (Chronic) Smoking (Acute) Hypertension (Chronic) Vitamin D deficiency (Acute) Dysuria (Acute) Lymphedema (Acute) Screening for colon cancer (Acute) Edema of both lower extremities (Acute) Multifocal pneumonia (Acute) Medical History Sleep apnea Essential hypertension Candidiasis of skin Osteoarthritis 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 Pain in thoracic spine Cellulitis of right lower limb Cardiomegaly Presbyopia Pulmonary embolism (~12/16/21) Morbid obesity 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, on suboxone Hypoxia Pneumonia due to 2019 novel coronavirus SARS-CoV-2 positive COPD (chronic obstructive pulmonary disease) Surgical History H/O total hysterectomy History of femur fracture hardware in femur Family History Mother Diabetes Father Hypertension Social History Smoking/Tobacco Use Status: Current every day Tobacco Type: e-cigarettes Counseling given: provider counseling and support medications Smoking risk assessment performed?: Yes Alcohol Intake: former Drug use: Current Sobriety Substance use type: former substance user Details: Currently on Suboxone Housing: apartment Do you feel safe at home: Yes Do you feel safe in your relationship?: Yes Meds Allergies and Home Medications Allergies Allergy/AdvReac Type Severity Reaction Status Date / Time aspirin Allergy Unknown Other (See Verified 10/04/25 12:01 Comment) codeine Allergy Unknown Other (See Verified 10/04/25 12:01 Comment) Home Medications Medication Instructions Recorded Confirmed Type buprenorphine 8 mg-naloxone 2 mg 1 film sublingual DAILY 12/16/21 10/04/25 History sublingual film (Suboxone) ipratropium 20 mcg-albuterol 100 1 puff inhalation QID #1 g 12/18/21 10/04/25 Rx mcg/actuation mist for inhalation (Combivent Respimat) apixaban 5 mg tablet (Eliquis) 5 mg PO BID 03/16/24 10/04/25 History albuterol sulfate 90 mcg/actuation 2 inh inhalation Q4H PRN 10/25/24 10/04/25 History aerosol inhaler (Ventolin HFA) betamethasone valerate 0.1 % 1 applic topical BID 11/17/24 10/04/25 History topical ointment Exam Const General: cooperative and comfortable Nutritional Appearance: obese Orientation: alert and oriented x3 Resp Effort & Inspection: able to speak in complete sentences and other (slightly increased work of breathing) Auscultation: wheezes expiratory wheezes and scattered wheezes Cardio Rate: regular rate Rhythm: abnormal rhythm irregularly irregular Pulses: radial pulses present GI Inspection: normal to inspection, non-distended and obesity Palpation: soft, not firm, no guarding, not rigid and nontender Extrem General: edema (lower legs with hemosiderin staining) Laterality: bilateral Right lower extremity: lower leg Details: other (healing abrasion to lateral R davison) Results Labs 10/04/25 12:18 10/04/25 12:18 Labs: Laboratory Results - last 24 hr 10/04/25 10/04/25 12:18 12:22 WBC 5.14 RBC 4.13 Hgb 13.1 Hct 40.0 MCV 97 H MCH 31.7 MCHC 32.8 RDW 14.0 Plt Count 196 MPV 8.7 Immature Gran % 0.6 Neutrophils % 64.8 Lymphocytes % 20.0 Monocytes % 4.9 Eosinophils % 9.1 Basophils % 0.6 Nucleated RBC % 0.0 Absolute Neutrophils 3.33 Absolute Lymphocytes 1.03 L Absolute Monocytes 0.25 Absolute Eosinophils 0.47 Absolute Basophils 0.03 PT 10.4 INR 1.0 APTT 25.0 VBG pH 7.33 VBG pCO2 68 H* VBG pO2 34 VBG HCO3 36 H VBG Total CO2 33 H VBG O2 Saturation 61 VBG Base Excess 10 H Sodium 141 Potassium 4.1 Chloride 101 Carbon Dioxide 36.0 H Anion Gap 4.0 BUN 11 Creatinine 0.7 Est GFR (CKD-EPI 2020) 98.95 Glucose 106 Calcium 8.8 Total Bilirubin 0.7 AST 14 L ALT 17 Alkaline Phosphatase 90 Troponin I 15 NT-Pro-B Natriuret Pep 314 H Total Protein 7.2 Albumin 3.7 COVID-19 Source Nasopharynx SARS-CoV-2 (PCR) Negative Influenza Type A (PCR) Negative Influenza Type B (PCR) Negative RSV (PCR) Negative Last Vital Signs Temp 98.5 F 10/04/25 12:00 Pulse 90 10/04/25 12:00 Resp 20 10/04/25 12:00 BP 191/95 H 10/04/25 12:00 Pulse Ox 99 10/04/25 12:00 Time Spent Time spent with Patient: >75 minutes Time was spent: preparing to see the patient(eg.review tests), obtaining and/or reviewing separately otained hiistory, ordering medications,tests, procedures, referring, communicating with other health patient care coordinator, indepentently interpreting results, counseling the patient and care coordination
[2025-10-04 16:29] LABS: Troponin I 15 ng/L (<or=51)
--- NOTE | 2025-10-04 17:01 | W.PC.ACHO ---
Registration Status: ADM IN Primary Language: Preferred Language: ED Information & Data Chief Complaint SOB 10/04/25 13:15 Triage Note Intermittent fevers over the 10/04/25 11:57 past 24 hours. PT reports increasing shortness of breath over the past several days. Extreme wheezing/ difficulty breathing. hypoxic on EMS arrival. 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 Pain in thoracic spine Cellulitis of right lower limb Cardiomegaly Presbyopia Pulmonary embolism (~12/16/21) Morbid obesity Drug abuse in remission Hypoxia Pneumonia due to 2019 novel coronavirus SARS-CoV-2 positive COPD (chronic obstructive pulmonary disease) (Last Reviewed 11/17/24 @ 16:19 by Kacey Ludwig NP) H/O total hysterectomy History of femur fracture Most Recent Vital Signs Temperature 36.7 C 10/04/25 16:20 Temperature Source Temporal Artery Scan 10/04/25 16:20 Pulse 80 10/04/25 16:20 Pulse 85 10/04/25 16:00 Respiratory Rate 20 10/04/25 16:20 Respiratory Effort Short of Breath 10/04/25 14:55 Respiratory Depth Shallow 10/04/25 14:55 Blood Pressure 158/91 H 10/04/25 16:20 Blood Pressure Mean 113 10/04/25 16:20 Blood Pressure Position Sitting 10/04/25 12:00 Pulse Oximetry 95 10/04/25 16:20 Oxygen Delivery Method Nasal Cannula 10/04/25 16:20 Oxygen Flow Rate 2 10/04/25 16:20 Pain Level 0 10/04/25 16:30 Allergies aspirin Allergy (Unknown, Verified 10/04/25 12:01) Other (See Comment) codeine Allergy (Unknown, Verified 10/04/25 12:01) Other (See Comment) Active Medications Generic Name Dose Route Start Last Admin Trade Name Freq PRN Reason Stop Dose Admin Iohexol 100 ml 10/04/25 13:15 10/04/25 13:16 Omnipaque 350 Mg/Ml 100 Ml Btl IJ 11/03/25 23:59 100 ml DIRECTED REFUGIO Administration Sodium Chloride 50 ml 10/04/25 13:15 10/04/25 13:16 Normal Saline - Diluent 50 Ml Vial IJ 50 ml DIRECTED REFUGIO Administration Sodium Chloride 0 ml 10/04/25 13:15 10/04/25 13:15 Normal Saline Flush 10 Ml Syr IVP 10 ml PRN PRN Administration IV IV Catheter Type [Right Saline Lock Antecubital] IV Catheter Gauge [Right 18 Antecubital] Diet Orders Category Date Time Status Regular/Normal [DIET] Nutrition 10/04/25 Dinner Active Diagnostics 10/04/25 10/04/25 10/04/25 Range/Units 15:40 15:00 12:22 WBC (4.4-10.8) 10^3/uL RBC (3.93-5.22) 10^6/uL Hgb (11.2-15.7) g/dL Hct (36.0-46.0) % MCV (80-95) fL MCH (27.0-33.0) pg MCHC (32.0-36.0) % RDW (11.7-14.6) % Plt Count (130-400) 10^3/uL MPV (8.0-11.0) fL Immature Gran % % Neutrophils % % Lymphocytes % % Monocytes % % Eosinophils % % Basophils % % Nucleated RBC % (0.0-0.3) % Absolute Neutrophils (1.2-6.7) 10^3/uL Absolute Lymphocytes (1.2-3.4) 10^3/uL Absolute Monocytes (0.1-0.8) 10^3/uL Absolute Eosinophils (0.0-0.7) 10^3/uL Absolute Basophils (0.0-0.2) 10^3/uL PT (9.1-11.1) sec INR (0.9-1.1) APTT (20.6-30.2) sec VBG pH (7.31-7.41) VBG pCO2 (41-51) mmHg VBG pO2 mmHg VBG HCO3 (23-28) mmol/L VBG Total CO2 (24-29) mmol/L VBG O2 Saturation % VBG Base Excess (-2-3) mmol/L Sodium (136-145) mmol/L Potassium (3.5-5.1) mmol/L Chloride (98-107) mmol/L Carbon Dioxide (21.0-32.0) mmol/L Anion Gap (3-11) mmol/L BUN (7-18) mg/dL Creatinine (0.55-1.02) mg/dL Est GFR (CKD-EPI 2020) (mL/min/1.73m2) Glucose (74-106) mg/dL Calcium (8.5-10.1) mg/dL Total Bilirubin (0.2-1.0) mg/dL AST (15-37) U/L ALT (14-59) U/L Alkaline Phosphatase (46-116) U/L Troponin I 15 Cancelled (<or=51) ng/L NT-Pro-B Natriuret Pep (<300) pg/mL Total Protein (6.4-8.2) g/dL Albumin (3.4-5.0) g/dL COVID-19 Source Nasopharynx SARS-CoV-2 (PCR) Negative (Negative) Influenza Type A (PCR) Negative (Negative) Influenza Type B (PCR) Negative (Negative) RSV (PCR) Negative (Negative) 10/04/25 Range/Units 12:18 WBC 5.14 (4.4-10.8) 10^3/uL RBC 4.13 (3.93-5.22) 10^6/uL Hgb 13.1 (11.2-15.7) g/dL Hct 40.0 (36.0-46.0) % MCV 97 H (80-95) fL MCH 31.7 (27.0-33.0) pg MCHC 32.8 (32.0-36.0) % RDW 14.0 (11.7-14.6) % Plt Count 196 (130-400) 10^3/uL MPV 8.7 (8.0-11.0) fL Immature Gran % 0.6 % Neutrophils % 64.8 % Lymphocytes % 20.0 % Monocytes % 4.9 % Eosinophils % 9.1 % Basophils % 0.6 % Nucleated RBC % 0.0 (0.0-0.3) % Absolute Neutrophils 3.33 (1.2-6.7) 10^3/uL Absolute Lymphocytes 1.03 L (1.2-3.4) 10^3/uL Absolute Monocytes 0.25 (0.1-0.8) 10^3/uL Absolute Eosinophils 0.47 (0.0-0.7) 10^3/uL Absolute Basophils 0.03 (0.0-0.2) 10^3/uL PT 10.4 (9.1-11.1) sec INR 1.0 (0.9-1.1) APTT 25.0 (20.6-30.2) sec VBG pH 7.33 (7.31-7.41) VBG pCO2 68 H* (41-51) mmHg VBG pO2 34 mmHg VBG HCO3 36 H (23-28) mmol/L VBG Total CO2 33 H (24-29) mmol/L VBG O2 Saturation 61 % VBG Base Excess 10 H (-2-3) mmol/L Sodium 141 (136-145) mmol/L Potassium 4.1 (3.5-5.1) mmol/L Chloride 101 (98-107) mmol/L Carbon Dioxide 36.0 H (21.0-32.0) mmol/L Anion Gap 4.0 (3-11) mmol/L BUN 11 (7-18) mg/dL Creatinine 0.7 (0.55-1.02) mg/dL Est GFR (CKD-EPI 2020) 98.95 (mL/min/1.73m2) Glucose 106 (74-106) mg/dL Calcium 8.8 (8.5-10.1) mg/dL Total Bilirubin 0.7 (0.2-1.0) mg/dL AST 14 L (15-37) U/L ALT 17 (14-59) U/L Alkaline Phosphatase 90 (46-116) U/L Troponin I 15 (<or=51) ng/L NT-Pro-B Natriuret Pep 314 H (<300) pg/mL Total Protein 7.2 (6.4-8.2) g/dL Albumin 3.7 (3.4-5.0) g/dL COVID-19 Source SARS-CoV-2 (PCR) (Negative) Influenza Type A (PCR) (Negative) Influenza Type B (PCR) (Negative) RSV (PCR) (Negative) Intake and Output - 24 Hour Total 10/04/25 11:47 thru 10/04/25 16:28 Intake Total 220 Balance 220 Weight 90.718 kg Intake: Oral 220 Falls Risk Assessment History of Falls No History 10/04/25 12:00 Contributing Factors No Factors 10/04/25 12:00 Ambulatory Aids Uses ambulatory device 10/04/25 12:00 Tubes/Lines None 10/04/25 12:00 Gait Evaluation No gait disturbance 10/04/25 12:00 Cognition No cognitive impairment 10/04/25 12:00 Fall Total Score 15 10/04/25 12:00 Level of Risk Standard/Low Risk 10/04/25 12:00 Problems (Last Reviewed 11/17/24 @ 16:19 by Kacey Ludwig NP) COPD with acute exacerbation (Acute) v v v v v v v v v Sending and/or Receiving Nurses: Please use comment section below to note any information pertinent to the patient hand-off not included above. Information / Comments: Pt was brought to floor via stretcher and settled into room by KAYODE. Pt is on 2L o2 which was applied on arrival. Call mott was left within reach Report received from:
[2025-10-04] MEDS: predniSONE 20 MG TAB 40 MG PO (17:10)
[2025-10-04] MEDS: Apixaban 5 MG TAB PO (21:19)
[2025-10-05] VITALS (11 sets, daily range): BP systolic 124–160; BP diastolic 76–92; PULSE 68–97; RESP 16–20; TEMP 36–36.9; O2SAT 88–94
[2025-10-05] MEDS: Albuterol/Ipratropium 3 ML UPD VIAL UPD ×4 (03:46→20:22)
[2025-10-05 06:49] LABS: HCT 36.2 % (36.0-46.0); HGB 12.7 g/dL (11.2-15.7); MCH 34.4 pg (27.0-33.0); MCHC 35.1 % (32.0-36.0); MCV 98 fL (80-95); MPV 9.0 fL (8.0-11.0); Platelet Count 211 10^3/uL (130-400); RBC 3.69 10^6/uL (3.93-5.22); RDW 13.9 % (11.7-14.6); RDW-SD 48.3 fL; WBC 6.88 10^3/uL (4.4-10.8)
[2025-10-05 07:00] LABS: Anion Gap 2.0 mmol/L (3-11); BUN 14 mg/dL (7-18); CO2 36.0 mmol/L (21.0-32.0); Calcium 8.2 mg/dL (8.5-10.1); Chloride 102 mmol/L (98-107); Glucose 143 mg/dL (74-106); Magnesium 2.2 mg/dL (1.8-2.4); Potassium 3.9 mmol/L (3.5-5.1); Sodium 140 mmol/L (136-145)
--- NOTE | 2025-10-05 07:22 | PGE_ITS ---
Date of Service Date of service: 10/05/25 Time of Service: 07:30 Assessment and Plan Assessment and plan (1) COPD with acute exacerbation: Status: Acute Assessment and plan: -Somewhat improved symptomatically but continues to have persistent wheezing. -Continue steroids (transitioned to PO prednisone) and scheduled duonebs with PRN albuterol. (2) Acute respiratory failure with hypoxia and hypercarbia: Status: Resolved Assessment and plan: -continue supplemental O2 as needed (none required at rest) -see above, secondary to COPD exacerbation (3) Drug abuse in remission: Assessment and plan: -Continue home medication regimen (suboxone) Subjective Subjective Interval history since last seen: No significant events overnight. Carmen reports she feels like she is still wheezing today, says that she feels like the nebs have been helping. Denies fever/chills, chest pain, change in cough, nausea/vomiting, or other complaints. Feels overall like she is improving, but says that she thinks another day of inpatient care would be helpful. Exam Const General: cooperative and comfortable Nutritional Appearance: obese Orientation: alert and oriented x3 Resp Effort & Inspection: able to speak in complete sentences, audible wheezes and other (slightly increased work of breathing) Auscultation: wheezes expiratory wheezes and scattered wheezes Cardio Rate: regular rate Rhythm: abnormal rhythm irregularly irregular Pulses: radial pulses present GI Inspection: normal to inspection, non-distended and obesity Palpation: soft, not firm, no guarding, not rigid and nontender Extrem General: edema Right lower extremity: lower leg Details: other (healing abrasion to lateral R davison) Objective Last Vital Signs Temp 96.8 F L 10/05/25 03:15 Pulse 78 10/05/25 03:46 Resp 20 10/05/25 03:46 BP 135/81 10/05/25 03:15 Pulse Ox 89 L 10/05/25 03:46 Laboratory Results - last 24 hr 10/04/25 10/04/25 10/04/25 12:18 12:22 15:00 WBC 5.14 RBC 4.13 Hgb 13.1 Hct 40.0 MCV 97 H MCH 31.7 MCHC 32.8 RDW 14.0 Plt Count 196 MPV 8.7 Immature Gran % 0.6 Neutrophils % 64.8 Lymphocytes % 20.0 Monocytes % 4.9 Eosinophils % 9.1 Basophils % 0.6 Nucleated RBC % 0.0 Absolute Neutrophils 3.33 Absolute Lymphocytes 1.03 L Absolute Monocytes 0.25 Absolute Eosinophils 0.47 Absolute Basophils 0.03 PT 10.4 INR 1.0 APTT 25.0 VBG pH 7.33 VBG pCO2 68 H* VBG pO2 34 VBG HCO3 36 H VBG Total CO2 33 H VBG O2 Saturation 61 VBG Base Excess 10 H Sodium 141 Potassium 4.1 Chloride 101 Carbon Dioxide 36.0 H Anion Gap 4.0 BUN 11 Creatinine 0.7 Est GFR (CKD-EPI 2020) 98.95 Glucose 106 Calcium 8.8 Magnesium Total Bilirubin 0.7 AST 14 L ALT 17 Alkaline Phosphatase 90 Troponin I 15 Cancelled NT-Pro-B Natriuret Pep 314 H Total Protein 7.2 Albumin 3.7 COVID-19 Source Nasopharynx SARS-CoV-2 (PCR) Negative Influenza Type A (PCR) Negative Influenza Type B (PCR) Negative RSV (PCR) Negative 10/04/25 10/05/25 15:40 06:20 WBC 6.88 RBC 3.69 L Hgb 12.7 Hct 36.2 MCV 98 H MCH 34.4 H MCHC 35.1 D RDW 13.9 Plt Count 211 MPV 9.0 Immature Gran % Neutrophils % Lymphocytes % Monocytes % Eosinophils % Basophils % Nucleated RBC % Absolute Neutrophils Absolute Lymphocytes Absolute Monocytes Absolute Eosinophils Absolute Basophils PT INR APTT VBG pH VBG pCO2 VBG pO2 VBG HCO3 VBG Total CO2 VBG O2 Saturation VBG Base Excess Sodium 140 Potassium 3.9 Chloride 102 Carbon Dioxide 36.0 H Anion Gap 2.0 L BUN 14 Creatinine 0.5 L Est GFR (CKD-EPI 2020) 107.31 Glucose 143 H Calcium 8.2 L Magnesium 2.2 Total Bilirubin AST ALT Alkaline Phosphatase Troponin I 15 NT-Pro-B Natriuret Pep Total Protein Albumin COVID-19 Source SARS-CoV-2 (PCR) Influenza Type A (PCR) Influenza Type B (PCR) RSV (PCR) Time Spent with Patient Time Spent with Patient: >50 minutes Time was spent: preparing to see the patient(eg.review tests), obtaining and/or reviewing separately otained hiistory, ordering medications,tests, procedures, referring, communicating with other health director of healthcare systems, indepentently interpreting results, counseling the patient and care coordination
[2025-10-05] MEDS: Apixaban 5 MG TAB PO ×2 (08:13→20:21)
[2025-10-05] MEDS: Buprenorphine/Naloxone 8 mg/2 mg FILM 1 EACH SL (08:13)
[2025-10-05] MEDS: Normal Saline Flush 10 ML SYR IVP ×2 (08:13→20:24)
[2025-10-05] MEDS: predniSONE 20 MG TAB 40 MG PO (11:17)
--- NOTE | 2025-10-05 11:30 | RESPIRATORY ---
Pt's baseline O2 requirement is 1L 24/7. DME is [employer].
--- NOTE | 2025-10-05 11:38 | PHA.REVIEW2 ---
Pharmacy Admission Review Admission Clinical Review Admission Pharmacy Review: COPD with acute exacerbation (Acute) aspirin Allergy (Unknown, Verified 10/04/25 12:01) Other (See Comment) codeine Allergy (Unknown, Verified 10/04/25 12:01) Other (See Comment) Resuscitation Status Full Code Height 5 ft 5 in Weight 90.718 kg Pharmacy Admission Review Renal Dosing Renal Dosing: BUN 14 mg/dL (7-18) 10/05/25 06:20 Creatinine 0.5 mg/dL (0.55-1.02) L 10/05/25 06:20 Medications needing adjustments: Reviewed (CrCl 66.57 mL/min) List of meds needing interventions: Current medications are okay Anticoagulation Anticoagulation: Hgb 12.7 g/dL (11.2-15.7) 10/05/25 06:20 Hct 36.2 % (36.0-46.0) 10/05/25 06:20 Plt Count 211 10^3/uL (130-400) 10/05/25 06:20 INR 1.0 (0.9-1.1) 10/04/25 12:18 Creatinine 0.5 mg/dL (0.55-1.02) L 10/05/25 06:20 DVT Prophylaxis: Reviewed Medications: Apixaban (5mg BID) Opiate Usage Evaluate Pain Scale/Pains Meds: Reviewed (Suboxone 8mg/2mg film once daily) Scheduled Bowel Reg ordered if on Opiates?: No (PRN Miralax) Relevant Labs Relevant Labs: Sodium 140 mmol/L (136-145) 10/05/25 06:20 Potassium 3.9 mmol/L (3.5-5.1) 10/05/25 06:20 Chloride 102 mmol/L (98-107) 10/05/25 06:20 Magnesium 2.2 mg/dL (1.8-2.4) 10/05/25 06:20 Electrolytes, C-Reactive P, ESR: Reviewed (glucose 143 at 0620) Cardiac Review Cardiac Review: Troponin I 15 ng/L (<or=51) 10/04/25 15:40 NT-Pro-B Natriuret Pep 314 pg/mL (<300) H 10/04/25 12:18 BP, HR, EF%: Reviewed (BP 143/76, HR WNL) QTc Review QTc: Reviewed (430 from 10/04/25) IV to PO Switch IV Medications: Reviewed Home Meds Home Med List reviewed: Intervened Relevent Home Meds Not ordered & why?: Combivent inhaler (has REFUGIO Shrestha) Changed betamethasone cream to patients own (non-formulary). Informed nurse that this will need to be brought in from home for the patient if they want to use while inpatient Current Meds Current Medication Order Review: Intervened Comments: Added 2nd PRN to albuterol order per pharmacy protocol Changed IV ED access Asked provider if patient should be on prednisone daily. Order was put in yesterday at 1500 for a now one but no order for continued dosing. H+P also mentioned to continue prednisone. Provider ordered prednisone 40mg daily.
--- NOTE | 2025-10-05 16:41 | PDOC.CMIN ---
Date of service: 10/05/25 Time of Service: 16:42 Care Management Initial Assmt Initial Assessment Reason for Hospitalization: COPD exacerbation, acute hypoxic resp failure Functional Status/Living Situation Patient Presentation: Carmen was standing up in her room when CM met with her; she walked to the bed and sat down during the conversation. She was ambulating independently. She reported that she lives in [facility] with her daughter, and that she also spends time at her other daughter's home, which is also in [facility]. She stated that she is independent at baseline. She has a 4WW and home O2, which she uses as needed. She stated that when she is ready for discharge, she will need an RCT ride home; she utilizes the RCT bus in the community. She stated that she used to have HH RN for help with wound care on her legs, but she no longer needs them, so she is not an active patient with [facility]. CM will continue to follow. Town of Residence: [facility] Resides with: Child Significant Other/Family: Local Natural Supports: Two daughters, both supportive Employment Status: Unemployed Instrumental Activities of Daily Living (ADLs): Independent Medications Medication Management: No Issues/Barriers identified Physical Functioning/Mobility Assistive Device: 4WW, home O2 Advance Directives Advance Directives: Do you have an Advance Directive: N 02/05/21, 16:30 AD On File at [facility]: N 02/05/21, 16:30 Date Asked 10/04/25 10/04/25, 11:54 AD Date Reviewed COLST On File at [facility] No 11/17/24, 16:08 COLST Date Scanned Code Status Resuscitation Status Full Code Insurance Coverage/Financial Issues Insurance: [facility] Care Team Visit Care Team Role Provider Type Javier Tyler Primary Care Provider NON-[facility] STAFF PHYSICIAN Steven Aguiar DO Emergency Provider [facility] STAFF PHYSICIAN Ahsan Lizarraga MD Admit Provider [facility] STAFF PHYSICIAN Attending Provider Discharge Potential Discharge Needs: PCP F/U Appt Anticipated Barriers to Discharge: None Identified Patient/Family Education Needs: Review discharge instructions, discuss Ask Me Three Transportation: RCT RCT Transportation: Private vechicle Plan: Anticipate Carmen will return home once medically cleared. She will transport via private vehicle by RCT. She will follow up with her PCP and discharge plan of care. CM will continue to follow. Social Determinants of Health Screening Social Determinants of health last assessed in clinic: 10/05/25 Will the Patient Participate in the Screening?: Yes Do you worry about having a steady place to live?: no Problems where you live: no known problems In the past 12 months, have you had to go without electric, gas, oil or water in your home?: no 1. Within the past 12 months, we worried whether our food would run out before we got money to buy more.: Don't know/refused 2. Within the past 12 months, the food we bought just didn't last and we didn't have money to get more.: Don't know/refused Has lack of transportation kept you from medical appointments or from doing things needed for daily living?: no Has anyone in your life made you feel unsafe or unsupported?: no How hard is it for you to pay for the very basics like food, housing, medical care, and heating? Would you say it is:: Not hard at all Do you want help finding or keeping work or a job?: I do not need or want help If for any reason you need help with day-to-day activities such as bathing, preparing meals, shopping, managing finances, etc., do you get the help you need?: I don’t need any help How often do you feel lonely or isolated from those around you?: Never Do you speak a language other than [place] at home?: No Does the patient want assistance with any of the above?: No PFSH All Active Problems (Updated 10/04/25 @ 15:20 by Steven Aguiar DO) COPD exacerbation (Acute) Acute hypoxemic respiratory failure (Acute) Cellulitis (Acute) Hx of skilled nursing use of blood thinners (Acute) Obesity (Chronic) Atrial flutter, paroxysmal (Acute) COPD with acute exacerbation (Acute) Back pain (Acute) Venous stasis dermatitis (Chronic) Smoking (Acute) Hypertension (Chronic) Vitamin D deficiency (Acute) Dysuria (Acute) Lymphedema (Acute) Screening for colon cancer (Acute) Edema of both lower extremities (Acute) Multifocal pneumonia (Acute) Medical History Sleep apnea Essential hypertension Candidiasis of skin Osteoarthritis 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 Pain in thoracic spine Cellulitis of right lower limb Cardiomegaly Presbyopia Pulmonary embolism (~12/16/21) Morbid obesity 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, on suboxone Hypoxia Pneumonia due to 2019 novel coronavirus SARS-CoV-2 positive COPD (chronic obstructive pulmonary disease) Surgical History H/O total hysterectomy History of femur fracture hardware in femur Family History Mother Diabetes Father Hypertension Social History Smoking/Tobacco Use Status: Current every day Tobacco Type: e-cigarettes Counseling given: provider counseling and support medications Smoking risk assessment performed?: Yes Alcohol Intake: former Drug use: Current Sobriety Substance use type: former substance user Details: Currently on Suboxone Housing: apartment Do you feel safe at home: Yes Do you feel safe in your relationship?: Yes
[2025-10-06] VITALS (10 sets, daily range): BP systolic 131–169; BP diastolic 81–108; PULSE 71–92; RESP 12–20; TEMP 36.1–36.8; O2SAT 82–96
[2025-10-06] MEDS: Albuterol/Ipratropium 3 ML UPD VIAL UPD ×2 (07:29→14:52)
--- NOTE | 2025-10-06 07:32 | RESPIRATORY ---
Spoke with pt about ISABELLE diagnosis and pt advised she has never had a sleep study
[2025-10-06] MEDS: Buprenorphine/Naloxone 8 mg/2 mg FILM 1 EACH SL (07:53)
[2025-10-06] MEDS: Apixaban 5 MG TAB PO ×2 (07:53→19:58)
[2025-10-06] MEDS: predniSONE 20 MG TAB 40 MG PO (07:53)
[2025-10-06] MEDS: Normal Saline Flush 10 ML SYR IVP (07:54)
--- NOTE | 2025-10-06 11:28 | W.PM.PROGNOT ---
Date of Service Date of service: 10/06/25 Time of Service: 11:28 Assessment and Plan Assessment and plan (1) COPD with acute exacerbation: Status: Acute Assessment and plan: -Somewhat improved symptomatically but continues to have persistent wheezing. -Continue steroids (transitioned to PO [id number] dailyt) and scheduled duonebs with PRN albuterol. (2) Acute on chronic respiratory failure with hypoxia: Status: Acute Assessment and plan: -patient is actually supposed to be on 1L NC at rest though she states she rarely uses it and will only sometimes just put on 3L -will wean O2 at tolerated and consider home O2 test prior to DC -continue to reinforce appropriate use of oxygen (3) Drug abuse in remission: Assessment and plan: -Continue home medication regimen (suboxone) Subjective Subjective Interval history since last seen: Patient states that she is still wheezy this morning and that she had come difficulty breathing overnight. Otherwise she has no other complaints or concerns at this time. Exam Narrative Exam Narrative: well appearing female sitting up on the edge of the bed in no acute distress, not on supplemental O2, heart RRR, lungs with diffuse expiratory wheezing, abdomen obese, soft, non-tender, non-distended Objective Last Vital Signs Temp 97.5 F L 10/06/25 07:44 Pulse 71 10/06/25 07:44 Resp 14 10/06/25 07:44 BP 136/108 H 10/06/25 07:44 Pulse Ox 91 L 10/06/25 07:44 Time Spent with Patient Time Spent with Patient: >50 minutes Time was spent: preparing to see the patient(eg.review tests), obtaining and/or reviewing separately otained hiistory, ordering medications,tests, procedures, referring, communicating with other health client care manager, indepentently interpreting results, counseling the patient and care coordination
--- NOTE | 2025-10-06 15:17 | NUR.NOTE ---
Access chart to assist the nursing public area supervisor, Marco A Tiwari; with a problem with the patient's admission status. Nursing Note:
--- NOTE | 2025-10-06 15:56 | NUR.NOTE ---
Issue with chart after moving pt from rm 215 to rm 231./ Pt was accidnetlly discharged instead of transfered rooms. Unable to remedy the charts. All documentation was completed in previous chart including all rounding and shift assessment. Previous V number as follows: [id number]
[2025-10-06] MEDS: Ipratropium/Albuterol 4 GM 120 PUFF INH IH (19:36)
[2025-10-07] VITALS (7 sets, daily range): BP systolic 120–151; BP diastolic 79–91; PULSE 74–83; RESP 16–18; TEMP 36.4–36.8; O2SAT 91–96
[2025-10-07] MEDS: Albuterol/Ipratropium 3 ML UPD VIAL UPD (03:29)
[2025-10-07 06:44] LABS: HCT 39.6 % (36.0-46.0); HGB 13.0 g/dL (11.2-15.7); MCH 32.0 pg (27.0-33.0); MCHC 32.8 % (32.0-36.0); MCV 98 fL (80-95); MPV 9.0 fL (8.0-11.0); Platelet Count 196 10^3/uL (130-400); RBC 4.06 10^6/uL (3.93-5.22); RDW 13.7 % (11.7-14.6); RDW-SD 48.6 fL; WBC 6.40 10^3/uL (4.4-10.8)
[2025-10-07 06:52] LABS: Anion Gap 2.8 mmol/L (3-11); BUN 19 mg/dL (7-18); CO2 36.2 mmol/L (21.0-32.0); Calcium 7.8 mg/dL (8.5-10.1); Chloride 104 mmol/L (98-107); Glucose 103 mg/dL (74-106); Magnesium 2.2 mg/dL (1.8-2.4); Potassium 4.0 mmol/L (3.5-5.1); Sodium 143 mmol/L (136-145)
[2025-10-07] MEDS: Ipratropium/Albuterol 4 GM 120 PUFF INH IH ×4 (07:53→19:54)
[2025-10-07] MEDS: ANORO ELLIPTA 1 EACH IH (07:53)
--- NOTE | 2025-10-07 08:00 | W.PM.DS.N ---
DS: Diagnosis Discharge Diagnosis (1) COPD with acute exacerbation: Status: Resolved (2) Acute on chronic respiratory failure with hypoxia: Status: Resolved (3) Drug abuse in remission: Discharge Plan Disposition Patient Disposition: Home Discharge Details Reason For Visit: COPD Exacerbation, Acute Hypoxic Resp Failure Admit Date/Time: 10/04/25 14:42 Admit Provider: Ahsan Lizarraga Attending Provider: Ahsan Lizarraga Primary Care Provider: Javier Tyler Hospital Course Hospital Course: Carmen Beyer is a 59 year old woman presenting October 04 with shortness of breath, found to be in mild respiratory distress due to COPD exacerbation. She has improved on steroids and bronchodilators and is now safe for discharge home. Home Meds and New Rx's Prescriptions: New prednisone 20 mg tablet 40 mg PO DAILY Qty: 6 0RF No Action Eliquis 5 mg tablet 5 mg PO BID albuterol sulfate [Ventolin HFA] 90 mcg/actuation HFA aerosol inhaler 2 inh inhalation Q4H PRN umeclidinium-vilanterol [Anoro Ellipta] 62.5-25 mcg/actuation blister with device 1 inh INHALATION DAILY Patient Comments: INHALE ONE PUFF BY MOUTH EVERY DAY buprenorphine-naloxone [Suboxone] 8-2 mg Film 1 film sublingual DAILY Combivent Respimat 20-100 mcg/actuation Mist 1 puff inhalation QID Qty: 1 0RF betamethasone valerate 0.1 % ointment 1 applic TOPICAL BID Patient Comments: APPLY A THIN LAYER TO AFFECTED AREA(S) 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 Discharge Instructions Instructions: Exacerbation of COPD Stand Alone Forms: Portal Information Referrals: Javier Tyler [Primary Care Provider, Medicine] Referral Note: Your pcp will call with a follow up appointment, if you havent heard from them within a few days please give them a call to schedule Discharge Orders Discharge Orders: Discharge Order (Routine); Ordered 10/08/25 Ordered By: Luis Hays Discharge Data Discharge Date/Time-TO BE ENTERED AT DEPARTURE: 10/08/25 09:20 DS: Data Vitals/I&O Vitals and I&O: Vital Signs Temperature 36.2 C L 10/08/25 07:46 Temperature Source Temporal Artery Scan 10/08/25 07:46 Pulse 87 10/08/25 08:51 Pulse Rhythm Regular 10/04/25 17:13 Pulse 85 10/04/25 16:00 Respiratory Rate 16 10/08/25 08:51 Respiratory Effort Short of Breath 10/04/25 17:13 Respiratory Depth Retractive 10/04/25 17:13 Respiratory Pattern Tachypnea 10/04/25 17:13 Blood Pressure 136/94 H 10/08/25 07:46 Blood Pressure Mean 108 10/08/25 07:46 Blood Pressure Position Sitting 10/04/25 12:00 Pulse Oximetry 92 10/08/25 08:51 Oxygen Delivery Method Room Air 10/08/25 08:51 Oxygen Flow Rate 0 10/08/25 08:51 Pain Level 0 10/08/25 07:46 Comment Pt refused vitals, pt sleeping. FOOD PRESERVATION SCIENTIST will get vitals next time pt is awake, nurse notified. 10/06/25 03:27 Data Completed and Pending Pending Labs at Discharge: 10/04/25 10/04/25 10/04/25 12:18 12:22 15:00 WBC 5.14 RBC 4.13 Hgb 13.1 Hct 40.0 MCV 97 H MCH 31.7 MCHC 32.8 RDW 14.0 Plt Count 196 MPV 8.7 Immature Gran % 0.6 Neutrophils % 64.8 Lymphocytes % 20.0 Monocytes % 4.9 Eosinophils % 9.1 Basophils % 0.6 Nucleated RBC % 0.0 Absolute Neutrophils 3.33 Absolute Lymphocytes 1.03 L Absolute Monocytes 0.25 Absolute Eosinophils 0.47 Absolute Basophils 0.03 PT 10.4 INR 1.0 APTT 25.0 VBG pH 7.33 VBG pCO2 68 H* VBG pO2 34 VBG HCO3 36 H VBG Total CO2 33 H VBG O2 Saturation 61 VBG Base Excess 10 H Sodium 141 Potassium 4.1 Chloride 101 Carbon Dioxide 36.0 H Anion Gap 4.0 BUN 11 Creatinine 0.7 Est GFR (CKD-EPI 2020) 98.95 Glucose 106 Calcium 8.8 Magnesium Total Bilirubin 0.7 AST 14 L ALT 17 Alkaline Phosphatase 90 Troponin I 15 Cancelled NT-Pro-B Natriuret Pep 314 H Total Protein 7.2 Albumin 3.7 COVID-19 Source Nasopharynx SARS-CoV-2 (PCR) Negative Influenza Type A (PCR) Negative Influenza Type B (PCR) Negative RSV (PCR) Negative 10/04/25 10/05/2525 15:40 06:20 06:26 WBC 6.88 6.40 RBC 3.69 L 4.06 Hgb 12.7 13.0 Hct 36.2 39.6 MCV 98 H 98 H MCH 34.4 H 32.0 MCHC 35.1 D 32.8 D RDW 13.9 13.7 Plt Count 211 196 MPV 9.0 9.0 Immature Gran % Neutrophils % Lymphocytes % Monocytes % Eosinophils % Basophils % Nucleated RBC % Absolute Neutrophils Absolute Lymphocytes Absolute Monocytes Absolute Eosinophils Absolute Basophils PT INR APTT VBG pH VBG pCO2 VBG pO2 VBG HCO3 VBG Total CO2 VBG O2 Saturation VBG Base Excess Sodium 140 143 Potassium 3.9 4.0 Chloride 102 104 Carbon Dioxide 36.0 H 36.2 H Anion Gap 2.0 L 2.8 L BUN 14 19 H Creatinine 0.5 L 0.6 Est GFR (CKD-EPI 2020) 107.31 102.69 Glucose 143 H 103 Calcium 8.2 L 7.8 L Magnesium 2.2 2.2 Total Bilirubin AST ALT Alkaline Phosphatase Troponin I 15 NT-Pro-B Natriuret Pep Total Protein Albumin COVID-19 Source SARS-CoV-2 (PCR) Influenza Type A (PCR) Influenza Type B (PCR) RSV (PCR) PFSH All Active Problems (Updated 10/09/25 @ 00:04 by KHOA FRIEDMAN) COPD exacerbation (Acute) Acute hypoxemic respiratory failure (Acute) Cellulitis (Acute) Hx of detention use of blood thinners (Acute) Obesity (Chronic) Atrial flutter, paroxysmal (Acute) Back pain (Acute) Venous stasis dermatitis (Chronic) Smoking (Acute) Hypertension (Chronic) Vitamin D deficiency (Acute) Dysuria (Acute) Lymphedema (Acute) Screening for colon cancer (Acute) Edema of both lower extremities (Acute) Multifocal pneumonia (Acute) Medical History Sleep apnea Essential hypertension Candidiasis of skin Osteoarthritis 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 Pain in thoracic spine Cellulitis of right lower limb Cardiomegaly Presbyopia Pulmonary embolism (~12/16/21) Morbid obesity 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, on suboxone Hypoxia Pneumonia due to 2019 novel coronavirus SARS-CoV-2 positive COPD (chronic obstructive pulmonary disease) Surgical History H/O total hysterectomy History of femur fracture hardware in femur Family History Mother Diabetes Father Hypertension Social History Smoking/Tobacco Use Status: Current every day Tobacco Type: e-cigarettes Counseling given: provider counseling and support medications Smoking risk assessment performed?: Yes Alcohol Intake: former Drug use: Current Sobriety Substance use type: former substance user Details: Currently on Suboxone Housing: apartment Do you feel safe at home: Yes Do you feel safe in your relationship?: Yes
--- NOTE | 2025-10-07 08:00 | PGE_ITS ---
Date of Service Date of service: 10/07/25 Time of Service: 08:00 Assessment and Plan Assessment and plan (1) COPD with acute exacerbation: Status: Resolved Assessment and plan: -Somewhat improved symptomatically but continues to have persistent wheezing. -Continue steroids (transitioned to PO [id number] dailyt) and scheduled duonebs with PRN albuterol. (2) Acute on chronic respiratory failure with hypoxia: Status: Resolved Assessment and plan: -patient is actually supposed to be on 1L NC at rest though she states she rarely uses it and will only sometimes just put on 3L -will wean O2 at tolerated and consider home O2 test prior to DC -continue to reinforce appropriate use of oxygen Exam Narrative Exam Narrative: General: This is a pleasant man in no distress HEENT: Normocephalic, atraumatic CV: RRR Resp: Diffuse soft expiratory wheeze, much improved Abd: soft, NTND MSK: voluntary motion x4 Neuro: awake, alert, no focal deficits Objective Last Vital Signs Temp 36.2 C L 10/08/25 07:46 Pulse 87 10/08/25 08:51 Resp 16 10/08/25 08:51 BP 136/94 H 10/08/25 07:46 Pulse Ox 92 10/08/25 08:51 Time Spent with Patient Time Spent with Patient: <25 minutes Time was spent: preparing to see the patient(eg.review tests), obtaining and/or reviewing separately otained hiistory, ordering medications,tests, procedures, referring, communicating with other health home health care physician, indepentently interpreting results, counseling the patient and care coordination
[2025-10-07] MEDS: Buprenorphine/Naloxone 8 mg/2 mg FILM 1 EACH SL (08:32)
[2025-10-07] MEDS: predniSONE 20 MG TAB 40 MG PO (08:33)
[2025-10-07] MEDS: Apixaban 5 MG TAB PO ×2 (08:33→21:00)
[2025-10-08 00:45] VITALS: BP 133/86; PULSE 80; RESP 18; TEMP 36.5; O2SAT 91
[2025-10-08 04:16] VITALS: BP 150/104; PULSE 66; RESP 18; TEMP 36.5; O2SAT 91
[2025-10-08 07:46] VITALS: BP 136/94; PULSE 73; RESP 18; TEMP 36.2; O2SAT 92
[2025-10-08] MEDS: ANORO ELLIPTA 1 EACH IH (07:55)
[2025-10-08] MEDS: Ipratropium/Albuterol 4 GM 120 PUFF INH IH (07:55)
[2025-10-08 07:57] VITALS: O2SAT 93
[2025-10-08] MEDS: Buprenorphine/Naloxone 8 mg/2 mg FILM 1 EACH SL (08:22)
[2025-10-08] MEDS: predniSONE 20 MG TAB 40 MG PO (08:22)
[2025-10-08] MEDS: Apixaban 5 MG TAB PO (08:22)
[2025-10-08 08:51] VITALS: PULSE 87; RESP 16; O2SAT 92
[2025-10-08] MEDS: Albuterol/Ipratropium 3 ML UPD VIAL UPD (08:51)
--- NOTE | 2025-10-13 21:28 | DSE_ITS ---
Date of service: 10/08/25 Time of Service: 08:00 DS: Diagnosis Discharge Diagnosis (1) COPD with acute exacerbation: Status: Resolved (2) Acute on chronic respiratory failure with hypoxia: Status: Resolved Discharge Plan Disposition Patient Disposition: Home Condition: Improving Discharge Details Reason For Visit: COPD Exacerbation, Acute Hypoxic Resp Failure Admit Date/Time: 10/04/25 14:42 Admit Provider: Ahsan Lizarraga Attending Provider: Ahsan Lizarraga Primary Care Provider: Javier Tyler Hospital Course Hospital Course: Carmen Beyer is a 59 year old woman presenting October 04 with shortness of breath, found to be in mild respiratory distress due to COPD exacerbation. She has improved on steroids and bronchodilators and is now safe for discharge home. Home Meds and New Rx's Prescriptions: New prednisone 20 mg tablet 40 mg PO DAILY Qty: 6 0RF No Action Eliquis 5 mg tablet 5 mg PO BID albuterol sulfate [Ventolin HFA] 90 mcg/actuation HFA aerosol inhaler 2 inh inhalation Q4H PRN umeclidinium-vilanterol [Anoro Ellipta] 62.5-25 mcg/actuation blister with device 1 inh INHALATION DAILY Patient Comments: INHALE ONE PUFF BY MOUTH EVERY DAY buprenorphine-naloxone [Suboxone] 8-2 mg Film 1 film sublingual DAILY Combivent Respimat 20-100 mcg/actuation Mist 1 puff inhalation QID Qty: 1 0RF betamethasone valerate 0.1 % ointment 1 applic TOPICAL BID Patient Comments: APPLY A THIN LAYER TO AFFECTED AREA(S) 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 Discharge Instructions Instructions: Exacerbation of COPD Stand Alone Forms: Portal Information Referrals: Javier Tyler [Primary Care Provider, Medicine] Referral Note: Your pcp will call with a follow up appointment, if you havent heard from them within a few days please give them a call to schedule Activity:: Activity as Tolerated Equipment/Supplies:: No Equipment Needed Diet:: As Tolerated Discharge Orders Discharge Orders: Discharge Order (Routine); Ordered 10/08/25 Ordered By: Luis Hays Discharge Data Discharge Date/Time-TO BE ENTERED AT DEPARTURE: 10/08/25 09:20 DS: Summary Time Spent with Patient providing and/or coordinating discharge services: Less than 30 minutes Status at Discharge Functional status at discharge: independent ambulation Overall status at discharge: patient is progressing back to baseline Mental Status: mental status grossly normal Speech and Movement: speech and movement normal Mood: congruent mood Affect: normal affect Exam Narrative Exam Narrative: General: This is a pleasant woman in no distress HEENT: Normocephalic, atraumatic CV: RRR Resp: Diffuse soft expiratory wheeze, much improved Abd: soft, NTND MSK: voluntary motion x4 Neuro: awake, alert, no focal deficits Psych Mental Status: mental status grossly normal Speech and Movement: speech and movement normal Mood: congruent mood Affect: normal affect DS: Data Vitals/I&O Vitals and I&O: Vital Signs Temperature 36.2 C L 10/08/25 07:46 Temperature Source Temporal Artery Scan 10/08/25 07:46 Pulse 87 10/08/25 08:51 Pulse Rhythm Regular 10/04/25 17:13 Pulse 85 10/04/25 16:00 Respiratory Rate 16 10/08/25 08:51 Respiratory Effort Short of Breath 10/04/25 17:13 Respiratory Depth Retractive 10/04/25 17:13 Respiratory Pattern Tachypnea 10/04/25 17:13 Blood Pressure 136/94 H 10/08/25 07:46 Blood Pressure Mean 108 10/08/25 07:46 Blood Pressure Position Sitting 10/04/25 12:00 Pulse Oximetry 92 10/08/25 08:51 Oxygen Delivery Method Room Air 10/08/25 08:51 Oxygen Flow Rate 0 10/08/25 08:51 Pain Level 0 10/08/25 07:46 Comment Pt refused vitals, pt sleeping. TECHNOLOGIST DEVELOPMENT will get vitals next time pt is awake, nurse notified. 10/06/25 03:27 Data Completed and Pending Pending Labs at Discharge: 10/04/25 10/04/25 10/04/25 12:18 12:22 15:00 WBC 5.14 RBC 4.13 Hgb 13.1 Hct 40.0 MCV 97 H MCH 31.7 MCHC 32.8 RDW 14.0 Plt Count 196 MPV 8.7 Immature Gran % 0.6 Neutrophils % 64.8 Lymphocytes % 20.0 Monocytes % 4.9 Eosinophils % 9.1 Basophils % 0.6 Nucleated RBC % 0.0 Absolute Neutrophils 3.33 Absolute Lymphocytes 1.03 L Absolute Monocytes 0.25 Absolute Eosinophils 0.47 Absolute Basophils 0.03 PT 10.4 INR 1.0 APTT 25.0 VBG pH 7.33 VBG pCO2 68 H* VBG pO2 34 VBG HCO3 36 H VBG Total CO2 33 H VBG O2 Saturation 61 VBG Base Excess 10 H Sodium 141 Potassium 4.1 Chloride 101 Carbon Dioxide 36.0 H Anion Gap 4.0 BUN 11 Creatinine 0.7 Est GFR (CKD-EPI 2020) 98.95 Glucose 106 Calcium 8.8 Magnesium Total Bilirubin 0.7 AST 14 L ALT 17 Alkaline Phosphatase 90 Troponin I 15 Cancelled NT-Pro-B Natriuret Pep 314 H Total Protein 7.2 Albumin 3.7 COVID-19 Source Nasopharynx SARS-CoV-2 (PCR) Negative Influenza Type A (PCR) Negative Influenza Type B (PCR) Negative RSV (PCR) Negative 10/04/25 10/05/25 10/07/25 15:40 06:20 06:26 WBC 6.88 6.40 RBC 3.69 L 4.06 Hgb 12.7 13.0 Hct 36.2 39.6 MCV 98 H 98 H MCH 34.4 H 32.0 MCHC 35.1 D 32.8 D RDW 13.9 13.7 Plt Count 211 196 MPV 9.0 9.0 Immature Gran % Neutrophils % Lymphocytes % Monocytes % Eosinophils % Basophils % Nucleated RBC % Absolute Neutrophils Absolute Lymphocytes Absolute Monocytes Absolute Eosinophils Absolute Basophils PT INR APTT VBG pH VBG pCO2 VBG pO2 VBG HCO3 VBG Total CO2 VBG O2 Saturation VBG Base Excess Sodium 140 143 Potassium 3.9 4.0 Chloride 102 104 Carbon Dioxide 36.0 H 36.2 H Anion Gap 2.0 L 2.8 L BUN 14 19 H Creatinine 0.5 L 0.6 Est GFR (CKD-EPI 2020) 107.31 102.69 Glucose 143 H 103 Calcium 8.2 L 7.8 L Magnesium 2.2 2.2 Total Bilirubin AST ALT Alkaline Phosphatase Troponin I 15 NT-Pro-B Natriuret Pep Total Protein Albumin COVID-19 Source SARS-CoV-2 (PCR) Influenza Type A (PCR) Influenza Type B (PCR) RSV (PCR) PFSH All Active Problems (Updated 10/09/25 @ 00:04 by KHOA FRIEDMAN) COPD exacerbation (Acute) Acute hypoxemic respiratory failure (Acute) Cellulitis (Acute) 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 (Acute) Obesity (Chronic) Atrial flutter, paroxysmal (Acute) Back pain (Acute) Venous stasis dermatitis (Chronic) Smoking (Acute) Hypertension (Chronic) Vitamin D deficiency (Acute) Dysuria (Acute) Lymphedema (Acute) Screening for colon cancer (Acute) Edema of both lower extremities (Acute) Multifocal pneumonia (Acute) Medical History Sleep apnea Essential hypertension Candidiasis of skin Osteoarthritis 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 Pain in thoracic spine Cellulitis of right lower limb Cardiomegaly Presbyopia Pulmonary embolism (~12/16/21) Morbid obesity 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, on suboxone Hypoxia Pneumonia due to 2019 novel coronavirus SARS-CoV-2 positive COPD (chronic obstructive pulmonary disease) Surgical History H/O total hysterectomy History of femur fracture hardware in femur Family History Mother Diabetes Father Hypertension Social History Smoking/Tobacco Use Status: Current every day Tobacco Type: e-cigarettes Counseling given: provider counseling and support medications Smoking risk assessment performed?: Yes Alcohol Intake: former Drug use: Current Sobriety Substance use type: former substance user Details: Currently on Suboxone Housing: apartment Do you feel safe at home: Yes Do you feel safe in your relationship?: Yes Time Spent with Patient Time Spent with Patient: <45 minutes Time was spent: preparing to see the patient(eg.review tests), obtaining and/or reviewing separately otained hiistory, ordering medications,tests, procedures, referring, communicating with other health medical care administrator, indepentently interpreting results, counseling the patient and care coordination
== END 2025-10-08 09:20 | disposition home or self-care (01) | DRG 190 ==
LOC: ER 15:20 → MS 16:13
PROVIDERS: Admitting Provider Family Medicine; Emergency Provider Student in an Organized Health Care Education/Training Program; PCP Student in an Organized Health Care Education/Training Program; Responsible Provider Family Medicine; Visit Provider Family Medicine
DX: J44.1 Chronic obstructive pulmonary disease with (acute) exacerbation (principal); J96.21 Acute and chronic respiratory failure with hypoxia; I48.92 Unspecified atrial flutter; F11.20 Opioid dependence, uncomplicated; I10 Essential (primary) hypertension; Z86.711 Personal history of pulmonary embolism; Z79.01 Long term (current) use of anticoagulants; I87.2 Venous insufficiency (chronic) (peripheral); E55.9 Vitamin D deficiency, unspecified; I89.0 Lymphedema, not elsewhere classified; G47.30 Sleep apnea, unspecified; E66.01 Morbid (severe) obesity due to excess calories; Z68.33 Body mass index [BMI] 33.0-33.9, adult; F17.290 Nicotine dependence, other tobacco product, uncomplicated; Z91.199 Patient's noncompliance with other medical treatment and regimen due to unspecified reason
CPT/HCPCS: 00123; 36415; 71275; 80048; 80053; 82805; 85027; 87637; 93005; 94640; 96374; 99291; 83735; 83880; 84484; 85025; 85610; 85730; 93010; 94664; 94760; 99223; 99231; 99233; 99238; J2919; J3490; J7512; J7620

== ENCOUNTER 2025-10-18 11:53 | Observation (INO) | payer MEDICAID, SELFPAY ==
[2025-10-18] VITALS (62 sets, daily range): BP systolic 120–190; BP diastolic 48–113; PULSE 76–106; RESP 13–27; TEMP 36.1–37; O2SAT 85–100
--- NOTE | 2025-10-18 11:45 | RT.EKG_ITS ---
APPROVED REPORT Exam: Resting ECG Reason for Exam: COPD exacerbation Patient Location: E HR:88 bpm ECG Measurements Heart Rate 88 AXIS NH 125 P 56 QRSd 87 QRS 40 QT 371 T 91 QTc 449 Conclusion Sinus rhythm...normal P axis, V-rate 60- 99 Nonspecific T abnormalities, lateral leads...T <-0.10mV, I aVL V5 V6
--- NOTE | 2025-10-18 12:15 | DI.RAD_ITS ---
Exam(s) XR CHEST 2V PA LATERAL EXAM: XR CHEST 2V PA LATERAL CLINICAL HISTORY: cough TECHNIQUE: 2D digital imaging was performed. Two views. COMPARISON: CT CT CHEST PE CTA from 10/04/2025 FINDINGS: HEART: Mildly enlarged. Aorta: Mildly tortuous. PULMONARY VASCULATURE: Normal. MEDIASTINUM: Unremarkable. LUNGS: Clear. PLEURAL SPACE: No pleural effusion or pneumothorax. 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 Stable mild compression fracture of T9. Degenerative changes. Hardware in right humerus. SOFT TISSUES: Unremarkable. IMPRESSION: No acute abnormality. DATA REPOSITORY: RADIATION DOSE DELIVERED:
--- NOTE | 2025-10-18 12:30 | ED.GENADUL_ITS ---
Discharge Plan Disposition Patient Disposition: Admit to [facility] Condition: Serious Discharge Details Clinical Impression: COPD exacerbation Primary Care Provider: Javier Tyler ED Provider: Gerardo Talavera Home Meds and New Rx's Prescriptions: No Action Eliquis 5 mg tablet 5 mg PO BID albuterol sulfate [Ventolin HFA] 90 mcg/actuation HFA aerosol inhaler 2 inh inhalation Q4H PRN umeclidinium-vilanterol [Anoro Ellipta] 62.5-25 mcg/actuation blister with device 1 inh INHALATION DAILY Patient Comments: INHALE ONE PUFF BY MOUTH EVERY DAY buprenorphine-naloxone [Suboxone] 8-2 mg Film 1 film sublingual DAILY Combivent Respimat 20-100 mcg/actuation Mist 1 puff inhalation QID Qty: 1 0RF betamethasone valerate 0.1 % ointment 1 applic TOPICAL BID Patient Comments: APPLY A THIN LAYER TO AFFECTED AREA(S) 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 Date/Time Provider Initiated Documentation: 10/18/25 11:54 . Limitations to Documentation: no limitations . Information obtained by: patient . HPI Narrative: HISTORY OF PRESENT ILLNESS 59-year-old female with COPD, atrial flutter, hypertension, cardiomegaly, and morbid obesity, recently hospitalized for COPD exacerbation and acute on chronic respiratory failure, presents with dyspnea. Dyspnea for several weeks, worsened today. Fall a few weeks ago caused rib pain, possibly altering breathing pattern. No current pain or fever. Uses albuterol inhaler without spacer, no nebulizer at home. Reports chronic leg edema bilaterally. No recent change. EMS nebulizer treatment provided relief. Completed steroid course post-hospital discharge. Patient denies chest pain. Related Data Home Medications ?Medication ?Instructions ?Recorded ?Confirmed buprenorphine 8 mg-naloxone 2 mg 1 film sublingual SINDY LY 12/16/21 10/18/25 sublingual film (Suboxone) ipratropium 20 mcg-albuterol 100 1 puff inhalation QID #1 g 12/18/21 10/18/25 mcg/actuation mist for inhalation (Combivent Respimat) apixaban 5 mg tablet (Eliquis) 5 mg PO BID 03/16/24 albuterol sulfate 90 mcg/actuation 2 inh inhalation Q4 H PRN 10/25/24 10/18/25 aerosol inhaler (Ventolin HFA) betamethasone valerate 0.1 % 1 applic topical BID 10/3010/18/25 topical ointment umeclidinium 62.5 mcg-vilanterol 1 inh inhalation MARCELA Y 10/06/25 10/18/25 25 mcg/actuation powdr for inhalation (Anoro Ellipta) furosemide 20 mg tablet 20 mg PO DAILY 10/18/2509/30 Previous Rx's ?Medication ?Instructions ?Recorded ipratropium 20 mcg-albuterol 100 1 puff inhalation QID #1 g 12/18/21 mcg/actuation mist for inhalation (Combivent Respimat) Allergies Allergy/AdvReac Type Severity Reaction Status Date / Time aspirin Allergy Unknown Other (See Verified 10/18/25 12:00 Comment) codeine Allergy Unknown Other (See Verified 10/18/25 12:00 Comment) General Stated Complaint: SOB SADIA: 2 Review of Systems All systems reviewed & are unremarkable except as noted in HPI and below Constitutional Constitutional: Denies fever(s) Respiratory Respiratory: Reports as per HPI, Reports cough and Reports wheezing Allergic/Immunologic Allergic/Immunologic: Reports wheezing Exam Const General: cooperative and no acute distress HENMT Mouth: moist mucous membranes Eyes Conjunctivae: normal conjunctivae Sclera: normal sclerae Neck Neck: trachea midline and supple Resp Effort & Inspection: able to speak in complete sentences and cough Auscultation: rales, no rhonchi and wheezes Cardio Jugular venous pressure: no JVD Rate: regular rate and not tachycardic Rhythm: regular rhythm Heart Sounds: no murmurs GI Palpation: soft, not firm, no guarding, no masses, not rigid and nontender Skin General skin exam: no rashes or lesions noted Neuro General: patient alert, patient awake, patient oriented x3 and tone normal Extrem General: edema Laterality: bilateral Psych Appearance: grossly normal Mental Status: mental status grossly normal Course Vital Signs Vital signs: Vital Signs Temperature 37.0 C 10/18/25 11:58 Pulse 90 10/18/25 11:58 Respiratory Rate 24 10/18/25 11:58 Blood Pressure 161/98 H 10/18/25 11:58 Pulse Oximetry 85 L 10/18/25 11:58 Temperature 37.0 C 10/18/25 11:58 Temperature Source Tympanic 10/18/25 11:58 Pulse 90 10/18/25 11:58 Respiratory Rate 24 10/18/25 11:58 Blood Pressure 161/98 H 10/18/25 11:58 Blood Pressure Position Sitting 10/18/25 11:58 Pulse Oximetry 85 L 10/18/25 11:58 Oxygen Delivery Method Room Air 10/18/25 11:58 Oxygen Flow Rate 0 10/18/25 11:58 Medical Decision Making ASSESSMENT AND PLAN Initial Assessment: 59-year-old female with COPD, atrial flutter, hypertension, cardiomegaly, morbid obesity, recently hospitalized for COPD exacerbation and acute on chronic respiratory failure, presents with worsening dyspnea and cough. Differential diagnosis includes acute COPD exacerbation. Pneumonia. Consider COVID. ED Course: - EMS nebulizer treatment provided some relief. Plan to repeat neb and will give Solu-Medrol 60 mg IV. - Screening EKG was reviewed and interpreted by me: Please report, sinus rhythm 88 bpm, normal axis, nonspecific T wave abnormalities noted in lateral leads. - Labs reviewed and nondiagnostic. BNP normal. Troponin normal. Fluvid negative. - Chest x-ray reviewed and interpreted by radiology:No acute abnormality. - Patient reassessed and continues to have significant wheezing. Will give additional DuoNeb treatment. - I spoke with Dr. Lizarraga, discussed ED presentation course, will accept the patient for admission. Plan to treat with azithromycin orally. Final Assessment: 59-year-old female with history of COPD, recently hospitalized, presents with worsening dyspnea and cough. Patient continues to have significant wheezing despite Solu-Medrol and multiple neb treatments. Clinical Impression: - Acute exacerbation of COPD Disposition: - Admission This document was written with the assistance of TERE Rothman. The patient consented to its use. Lab Data Lab results reviewed: Yes I reviewed the patient's lab results. Labs: Laboratory Tests Range/Units 10/18/25 10/18/25 12:15 12:25 WBC (4.4-10.8) 10^3/uL 6.35 RBC (3.93-5.22) 10^6/uL 4.16 Hgb (11.2-15.7) g/dL 12.8 Hct (36.0-46.0) % 40.1 MCV (80-95) fL 96 H MCH (27.0-33.0) pg 30.8 MCHC (32.0-36.0) % 31.9 L RDW (11.7-14.6) % 13.7 Plt Count (130-400) 10^3/uL 215 MPV (8.0-11.0) fL 8.9 Immature Gran % % 0.5 Neutrophils % % 62.3 Lymphocytes % % 14.0 Monocytes % % 5.7 Eosinophils % % 17.0 Basophils % % 0.5 Nucleated RBC % (0.0-0.3) % 0.0 Absolute Neutrophils (1.2-6.7) 10^3/uL 3.96 Absolute Lymphocytes (1.2-3.4) 10^3/uL 0.89 L Absolute Monocytes (0.1-0.8) 10^3/uL 0.36 Absolute Eosinophils (0.0-0.7) 10^3/uL 1.08 H Absolute Basophils (0.0-0.2) 10^3/uL 0.03 Sodium (136-145) mmol/L 139 Potassium (3.5-5.1) mmol/L 3.5 Chloride (98-107) mmol/L 100 Carbon Dioxide (20.0-31.0) mmol/L 35.3 H Anion Gap (3-11) mmol/L 3.7 BUN (9-23) mg/dL 14 Creatinine (0.55-1.02) mg/dL 0.7 Est GFR (CKD-EPI 2020) (mL/min/1.73m2) 83.74 Glucose (74-106) mg/dL 101 Calcium (8.3-10.6) mg/dL 8.5 Total Bilirubin (0.2-1.2) mg/dL 0.40 AST (<34) U/L 18 ALT (10-49) U/L 11 Alkaline Phosphatase (46-116) U/L 74 Troponin I (<35) ng/L 9 NT-Pro-B Natriuret Pep (<300) pg/mL 52 Total Protein (5.7-8.2) g/dL 6.6 Albumin (3.4-5.0) g/dL 3.9 COVID-19 Source Nasopharynx SARS-CoV-2 (PCR) (Negative) Negative Influenza Type A (PCR) (Negative) Negative Influenza Type B (PCR) (Negative) Negative RSV (PCR) (Negative) Negative PFSH All Active Problems (Updated 10/18/25 @ 14:27 by Gerardo Talavera MD) COPD exacerbation (Acute) Acute hypoxemic respiratory failure (Acute) Cellulitis (Acute) 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) Obesity (Chronic) Atrial flutter, paroxysmal (Acute) Back pain (Acute) Venous stasis dermatitis (Chronic) Smoking (Acute) Hypertension (Chronic) Vitamin D deficiency (Acute) Dysuria (Acute) Lymphedema (Acute) Screening for colon cancer (Acute) Edema of both lower extremities (Acute) Multifocal pneumonia (Acute) Medical History Sleep apnea Essential hypertension Candidiasis of skin Osteoarthritis 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 Pain in thoracic spine Cellulitis of right lower limb Cardiomegaly Presbyopia Pulmonary embolism (~12/16/21) Morbid obesity 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, on suboxone Hypoxia Pneumonia due to 2019 novel coronavirus SARS-CoV-2 positive COPD (chronic obstructive pulmonary disease) Surgical History H/O total hysterectomy History of femur fracture hardware in femur Family History Mother Diabetes Father Hypertension Social History Smoking/Tobacco Use Status: Current every day Tobacco Type: e-cigarettes Counseling given: provider counseling and support medications Smoking risk assessment performed?: Yes Alcohol Intake: former Drug use: Current Sobriety Substance use type: former substance user Details: Currently on Suboxone Housing: apartment Do you feel safe at home: Yes Do you feel safe in your relationship?: Yes
[2025-10-18 12:32] LABS: Abs Immature Grans 0.03 10^3/uL (0.0-0.06); HCT 40.1 % (36.0-46.0); HGB 12.8 g/dL (11.2-15.7); Immature Grans % 0.5 %; MCH 30.8 pg (27.0-33.0); MCHC 31.9 % (32.0-36.0); MCV 96 fL (80-95); MPV 8.9 fL (8.0-11.0); Platelet Count 215 10^3/uL (130-400); RBC 4.16 10^6/uL (3.93-5.22); RDW 13.7 % (11.7-14.6); RDW-SD 49.1 fL; WBC 6.35 10^3/uL (4.4-10.8)
[2025-10-18] MEDS: methylPREDNISolone SUCC 125 MG VIAL 60 MG IVP (12:36)
[2025-10-18] MEDS: Albuterol/Ipratropium 3 ML UPD VIAL UPD ×2 (12:37→14:52)
[2025-10-18 12:50] LABS: Troponin I 9 ng/L (<35)
[2025-10-18 12:52] LABS: ALT 11 U/L (10-49); AST 18 U/L (<34); Albumin 3.9 g/dL (3.4-5.0); Alkaline Phosphatase 74 U/L (46-116); Anion Gap 3.7 mmol/L (3-11); BUN 14 mg/dL (9-23); Bilirubin, Total 0.40 mg/dL (0.2-1.2); CO2 35.3 mmol/L (20.0-31.0); Calcium 8.5 mg/dL (8.3-10.6); Chloride 100 mmol/L (98-107); Glucose 101 mg/dL (74-106); Potassium 3.5 mmol/L (3.5-5.1); Sodium 139 mmol/L (136-145); Total Protein 6.6 g/dL (5.7-8.2)
[2025-10-18 13:05] LABS: COVID-19 PCR Negative (Negative); RSV PCR Negative (Negative)
--- NOTE | 2025-10-18 14:36 | W.PM.HP.N ---
Date of service: 10/18/25 Time of Service: 14:37 Assessment and Plan Assessment and plan (1) COPD exacerbation: Status: Acute Assessment and plan: - Patient again presented with acute exacerbation of COPD - Appears to require oxygen in the emergency department but is now saturating at 100% on 2 L (baseline requiring 1 L nasal cannula, the patient does not use it at rest and claims to use 3 L intermittently) - Was given 60 mg IV Solu-Medrol in the emergency department, will continue 40 mg prednisone p.o., plan for prolonged taper given recent repeated exacerbation - Continue as needed albuterol, scheduled every 6 DuoNebs - Started on azithromycin, will continue given frequent recent exacerbation (2) Chronic hypoxic respiratory failure, on home oxygen therapy: Status: Acute Assessment and plan: - As noted above (3) Atrial flutter, paroxysmal: Status: Acute Assessment and plan: - Continue home Eliquis (4) Drug abuse in remission: Assessment and plan: -Continue home medication regimen (suboxone) History of Present Illness History of Present Illness Chief Complaint: SOB Narrative: 59yo female with PMH COPD and recent exacerbation of COPD and hospitalization at [facility] from 10/03-10/08 presents back to emergency department complaints of shortness of breath. Patient recently been hospitalized at [facility] from 10/13 to 10/08/2025 with COPD exacerbation and acute hypoxic respiratory failure. During that time she was treated with steroids and nebulizer treatments and had resolution of her symptoms and return to baseline respiratory status on 1 L nasal cannula though she rarely uses her oxygen as recommended and claims only put on 3 L when needed. However, she states that she has been short of breath for weeks (which would be prior to previous hospitalization), she uses her albuterol inhaler but does not have a nebulizer at home. She denies any fever, lightheadedness, dizziness, chest pain, or change in sputum production In the emergency department the patient was noted as having normal vital signs with the exception of edema 2 L nasal cannula the last documented at pulse ox of the 100%. CBC and CMP were unremarkable as well as chest x-ray. Patient was given 6 mg of IV Solu-Medrol in the emergency department and continued to wheeze. Given recent hospitalization and exacerbation and ongoing wheezing emergency room provider paged hospitalist for admission for patient with acute exacerbation of COPD. 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 (Acute) Obesity (Chronic) Atrial flutter, paroxysmal (Acute) Back pain (Acute) Venous stasis dermatitis (Chronic) Smoking (Acute) Hypertension (Chronic) Vitamin D deficiency (Acute) Dysuria (Acute) Lymphedema (Acute) Screening for colon cancer (Acute) Edema of both lower extremities (Acute) Multifocal pneumonia (Acute) Medical History Sleep apnea Essential hypertension Candidiasis of skin Osteoarthritis 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 Pain in thoracic spine Cellulitis of right lower limb Cardiomegaly Presbyopia Pulmonary embolism (~12/16/21) Morbid obesity 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, on suboxone Hypoxia Pneumonia due to 2019 novel coronavirus SARS-CoV-2 positive COPD (chronic obstructive pulmonary disease) Surgical History H/O total hysterectomy History of femur fracture hardware in femur Family History Mother Diabetes Father Hypertension Social History Smoking/Tobacco Use Status: Current every day Tobacco Type: e-cigarettes Counseling given: provider counseling and support medications Smoking risk assessment performed?: Yes Alcohol Intake: former Drug use: Current Sobriety Substance use type: former substance user Details: Currently on Suboxone Housing: apartment Do you feel safe at home: Yes Do you feel safe in your relationship?: Yes Meds Allergies and Home Medications Allergies Allergy/AdvReac Type Severity Reaction Status Date / Time aspirin Allergy Unknown Other (See Verified 10/18/25 12:00 Comment) codeine Allergy Unknown Other (See Verified 10/18/25 12:00 Comment) Home Medications ?Medication ?Instructions ?Recorded ?Confirmed ?Type buprenorphine 8 mg-naloxone 2 mg 1 film sublingual DAILY 12/16/21 10/18/25 History sublingual film (Suboxone) ipratropium 20 mcg-albuterol 100 1 puff inhalation QID #1 g 12/18/21 10/18/25 Rx mcg/actuation mist for inhalation (Combivent Respimat) apixaban 5 mg tablet (Eliquis) 5 mg PO BID 03/16/24 10/18/25 History albuterol sulfate 90 mcg/actuation 2 inh inhalation Q4H PRN 10/25/24 10/18/25 History aerosol inhaler (Ventolin HFA) betamethasone valerate 0.1 % 1 applic topical BID 11/17/24 10/18/25 History topical ointment umeclidinium 62.5 mcg-vilanterol 1 inh inhalation DAILY 10/06/25 10/18/25 History 25 mcg/actuation powdr for inhalation (Anoro Ellipta) furosemide 20 mg tablet 20 mg PO DAILY 10/18/25 10/18/25 History Exam Narrative Exam Narrative: well appearing female sitting up on the edge of the bed in no acute distress, AOx4, [address], heart RRR, lungs with end expiratory wheezing heard in bilateral lung bases, abdomen soft, non-tender, non-distended Results Labs 10/18/25 12:15 10/18/25 12:15 Labs: Laboratory Results - last 24 hr 10/18/25 10/18/25 12:15 12:25 WBC 6.35 RBC 4.16 Hgb 12.8 Hct 40.1 MCV 96 H MCH 30.8 MCHC 31.9 L RDW 13.7 Plt Count 215 MPV 8.9 Immature Gran % 0.5 Neutrophils % 62.3 Lymphocytes % 14.0 Monocytes % 5.7 Eosinophils % 17.0 Basophils % 0.5 Nucleated RBC % 0.0 Absolute Neutrophils 3.96 Absolute Lymphocytes 0.89 L Absolute Monocytes 0.36 Absolute Eosinophils 1.08 H Absolute Basophils 0.03 Sodium 139 Potassium 3.5 Chloride 100 Carbon Dioxide 35.3 H Anion Gap 3.7 BUN 14 Creatinine 0.7 Est GFR (CKD-EPI 2020) 83.74 Glucose 101 Calcium 8.5 Total Bilirubin 0.40 AST 18 ALT 11 Alkaline Phosphatase 74 Troponin I 9 NT-Pro-B Natriuret Pep 52 Total Protein 6.6 Albumin 3.9 COVID-19 Source Nasopharynx SARS-CoV-2 (PCR) Negative Influenza Type A (PCR) Negative Influenza Type B (PCR) Negative RSV (PCR) Negative Last Vital Signs Temp 98.6 F 10/18/25 11:58 Pulse 90 10/18/25 11:58 Resp 24 10/18/25 11:58 BP 161/98 H 10/18/25 11:58 Pulse Ox 100 10/18/25 13:54 Time Spent Time spent with Patient: >75 minutes Time was spent: preparing to see the patient(eg.review tests), obtaining and/or reviewing separately otained hiistory, ordering medications,tests, procedures, referring, communicating with other health clinical care coordinator, indepentently interpreting results, counseling the patient and care coordination
[2025-10-18 14:48] LABS: BE (Venous) 10 mmol/L (-2-3); HCO3 (Venous) 36 mmol/L (23-28); O2 Sat (Venous) 66 %; TCO2 (Venous) 33 mmol/L (24-29); pO2 (Venous) 36 mmHg
[2025-10-18 14:49] LABS: pCO2 (Venous) 67 mmHg (41-51)
[2025-10-18] MEDS: Azithromycin 250 MG TAB 500 MG PO (14:52)
--- NOTE | 2025-10-18 17:35 | W.PC.ACHO ---
Registration Status: ADM MEGHAN Primary Language: Preferred Language: ED Information & Data Chief Complaint SOB 10/18/25 12:48 Triage Note Patient here with hx of COPD 10/18/25 11:58 . Thinks she is having an exacerbation. No fever or chills. 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 Pain in thoracic spine Cellulitis of right lower limb Cardiomegaly Presbyopia Pulmonary embolism (~12/16/21) Morbid obesity Drug abuse in remission Hypoxia Pneumonia due to 2019 novel coronavirus SARS-CoV-2 positive COPD (chronic obstructive pulmonary disease) (Last Reviewed 10/18/25 @ 12:52 by Gerardo Talavera MD) H/O total hysterectomy History of femur fracture Most Recent Vital Signs Temperature 97.7 F 10/18/25 17:12 Temperature Source Temporal Artery Scan 10/18/25 17:12 Pulse 99 H 10/18/25 17:12 Pulse Rhythm Regular 10/18/25 17:12 Pulse 95 H 10/18/25 17:01 Respiratory Rate 22 10/18/25 17:12 Respiratory Effort Non-Labored 10/18/25 17:12 Respiratory Depth Shallow 10/18/25 17:12 Respiratory Pattern Tachypnea 10/18/25 17:12 Blood Pressure 161/85 H 10/18/25 17:12 Blood Pressure Mean 110 10/18/25 17:12 Blood Pressure Position Sitting 10/18/25 11:58 Pulse Oximetry 91 L 10/18/25 17:29 Oxygen Delivery Method Nasal Cannula 10/18/25 17:29 Oxygen Flow Rate 1 10/18/25 17:29 Pain Level 0 10/18/25 17:12 Allergies aspirin Allergy (Unknown, Verified 10/18/25 12:00) Other (See Comment) codeine Allergy (Unknown, Verified 10/18/25 12:00) Other (See Comment) Precautions Isolation Fall precaution 10/18/25 12:01 IV IV Catheter Type [Right Saline Lock Antecubital] IV Catheter Gauge [Right 20 Antecubital] Diet Orders Category Date Time Status Regular/Normal [DIET] Nutrition 10/18/25 Dinner Active Diagnostics 10/18/25 10/18/25 10/18/25 Range/Units 14:41 12:25 12:15 WBC 6.35 (4.4-10.8) 10^3/uL RBC 4.16 (3.93-5.22) 10^6/uL Hgb 12.8 (11.2-15.7) g/dL Hct 40.1 (36.0-46.0) % MCV 96 H (80-95) fL MCH 30.8 (27.0-33.0) pg MCHC 31.9 L (32.0-36.0) % RDW 13.7 (11.7-14.6) % Plt Count 215 (130-400) 10^3/uL MPV 8.9 (8.0-11.0) fL Immature Gran % 0.5 % Neutrophils % 62.3 % Lymphocytes % 14.0 % Monocytes % 5.7 % Eosinophils % 17.0 % Basophils % 0.5 % Nucleated RBC % 0.0 (0.0-0.3) % Absolute Neutrophils 3.96 (1.2-6.7) 10^3/uL Absolute Lymphocytes 0.89 L (1.2-3.4) 10^3/uL Absolute Monocytes 0.36 (0.1-0.8) 10^3/uL Absolute Eosinophils 1.08 H (0.0-0.7) 10^3/uL Absolute Basophils 0.03 (0.0-0.2) 10^3/uL VBG pH 7.34 (7.31-7.41) VBG pCO2 67 H* (41-51) mmHg VBG pO2 36 mmHg VBG HCO3 36 H (23-28) mmol/L VBG Total CO2 33 H (24-29) mmol/L VBG O2 Saturation 66 % VBG Base Excess 10 H (-2-3) mmol/L Sodium 139 (136-145) mmol/L Potassium 3.5 (3.5-5.1) mmol/L Chloride 100 (98-107) mmol/L Carbon Dioxide 35.3 H (20.0-31.0) mmol/L Anion Gap 3.7 (3-11) mmol/L BUN 14 (9-23) mg/dL Creatinine 0.7 (0.55-1.02) mg/dL Est GFR (CKD-EPI 2020) 83.74 (mL/min/1.73m2) Glucose 101 (74-106) mg/dL Calcium 8.5 (8.3-10.6) mg/dL Total Bilirubin 0.40 (0.2-1.2) mg/dL AST 18 (<34) U/L ALT 11 (10-49) U/L Alkaline Phosphatase 74 (46-116) U/L Troponin I 9 (<35) ng/L NT-Pro-B Natriuret Pep 52 (<300) pg/mL Total Protein 6.6 (5.7-8.2) g/dL Albumin 3.9 (3.4-5.0) g/dL COVID-19 Source Nasopharynx SARS-CoV-2 (PCR) Negative (Negative) Influenza Type A (PCR) Negative (Negative) Influenza Type B (PCR) Negative (Negative) RSV (PCR) Negative (Negative) Intake and Output - 24 Hour Total 10/18/25 11:47 thru 10/18/25 17:12 Intake Total 10 Balance 10 Weight 254 lb 1 oz Intake: IV 10 Other: Urine Appearance Clear Falls Risk Assessment History of Falls Previous History 10/18/25 17:12 Contributing Factors Impairments 10/18/25 17:12 Ambulatory Aids Uses ambulatory device 10/18/25 17:12 Tubes/Lines None 10/18/25 17:12 Gait Evaluation W/no contributing factors 10/18/25 17:12 Cognition No cognitive impairment 10/18/25 17:12 Fall Total Score 43 10/18/25 17:12 Level of Risk Moderate Risk 10/18/25 17:12 Problems (Last Reviewed 10/18/25 @ 12:52 by Gerardo Talavera MD) Chronic hypoxic respiratory failure, on home oxygen therapy (Acute) COPD exacerbation (Acute) Atrial flutter, paroxysmal (Acute) Attestation Statement: By documenting the first initial, last name, and credentials of the reporting nurse below, both parties acknowledge that all relevant information regarding the patient handoff has been communicated, and that all questions have been addressed to ensure continuity and safety of care. Additional Patient Information/Comments: Report Received From: Marco A Loewry RN
[2025-10-18] MEDS: Ipratropium/Albuterol 4 GM 120 PUFF INH IH ×2 (18:05→20:02)
[2025-10-18] MEDS: predniSONE 20 MG TAB 40 MG PO (18:31)
[2025-10-18] MEDS: Apixaban 5 MG TAB PO (21:09)
[2025-10-19] VITALS (13 sets, daily range): BP systolic 116–164; BP diastolic 66–89; PULSE 83–97; RESP 16–22; TEMP 36.1–37.6; O2SAT 90–98
[2025-10-19] MEDS: Albuterol 2.5 MG/3 ML INH SOLN VIAL UPD ×3 (04:27→20:42)
[2025-10-19 07:12] LABS: HCT 38.8 % (36.0-46.0); HGB 12.8 g/dL (11.2-15.7); MCH 31.9 pg (27.0-33.0); MCHC 33.0 % (32.0-36.0); MCV 97 fL (80-95); MPV 9.1 fL (8.0-11.0); Platelet Count 220 10^3/uL (130-400); RBC 4.01 10^6/uL (3.93-5.22); RDW 13.2 % (11.7-14.6); RDW-SD 47.3 fL; WBC 7.22 10^3/uL (4.4-10.8)
[2025-10-19 07:36] LABS: Anion Gap 3.1 mmol/L (3-11); BUN 15 mg/dL (9-23); CO2 33.9 mmol/L (20.0-31.0); Calcium 8.3 mg/dL (8.3-10.6); Chloride 103 mmol/L (98-107); Glucose 151 mg/dL (74-106); Potassium 3.9 mmol/L (3.5-5.1); Sodium 140 mmol/L (136-145)
[2025-10-19 07:38] LABS: Magnesium 2.1 mg/dL (1.6-2.6)
[2025-10-19] MEDS: Buprenorphine/Naloxone 8 mg/2 mg FILM 1 EACH SL (07:43)
[2025-10-19] MEDS: Furosemide 20 MG TAB PO (07:43)
[2025-10-19] MEDS: Azithromycin 250 MG TAB PO (07:43)
[2025-10-19] MEDS: Apixaban 5 MG TAB PO ×2 (07:43→20:32)
[2025-10-19] MEDS: Ipratropium/Albuterol 4 GM 120 PUFF INH IH ×4 (07:51→19:48)
[2025-10-19] MEDS: ANORO ELLIPTA 1 EACH IH (08:04)
--- NOTE | 2025-10-19 10:17 | PGE_ITS ---
Date of Service Date of service: 10/19/25 Time of Service: 10:17 Assessment and Plan Assessment and plan (1) COPD exacerbation: Status: Acute Assessment and plan: - Patient again presented with acute exacerbation of COPD - Appears to require oxygen in the emergency department but is now saturating at 100% on 2 L (baseline requiring 1 L nasal cannula, the patient does not use it at rest and claims to use 3 L intermittently) - Was given 60 mg IV Solu-Medrol in the emergency department, will continue 40 mg prednisone p.o., plan for prolonged taper given recent repeated exacerbation - Continue as needed albuterol, scheduled every 6 DuoNebs - Started on azithromycin, will continue given frequent recent exacerbation (2) Chronic hypoxic respiratory failure, on home oxygen therapy: Status: Acute Assessment and plan: - As noted above (3) Atrial flutter, paroxysmal: Status: Acute Assessment and plan: - Continue home Eliquis (4) Drug abuse in remission: Assessment and plan: -Continue home medication regimen (suboxone) Subjective Subjective Interval history since last seen: Patient states that she id feeling better as compared to yesterday but that she is still rather wheezy this morning. Exam Narrative Exam Narrative: well appearing female sitting up on the edge of the bed in no acute distress, AOx4, [address], heart RRR, lungs with end expiratory wheezing heard in bilateral lung bases, abdomen soft, non-tender, non-distended Objective Last Vital Signs Temp 98.1 F 10/19/25 07:51 Pulse 87 10/19/25 07:51 Resp 16 10/19/25 07:51 BP 139/66 10/19/25 07:51 Pulse Ox 92 10/19/25 07:52 Laboratory Results - last 24 hr 10/18/25 10/18/25 10/18/25 12:15 12:25 14:41 WBC 6.35 RBC 4.16 Hgb 12.8 Hct 40.1 MCV 96 H MCH 30.8 MCHC 31.9 L RDW 13.7 Plt Count 215 MPV 8.9 Immature Gran % 0.5 Neutrophils % 62.3 Lymphocytes % 14.0 Monocytes % 5.7 Eosinophils % 17.0 Basophils % 0.5 Nucleated RBC % 0.0 Absolute Neutrophils 3.96 Absolute Lymphocytes 0.89 L Absolute Monocytes 0.36 Absolute Eosinophils 1.08 H Absolute Basophils 0.03 VBG pH 7.34 VBG pCO2 67 H* VBG pO2 36 VBG HCO3 36 H VBG Total CO2 33 H VBG O2 Saturation 66 VBG Base Excess 10 H Sodium 139 Potassium 3.5 Chloride 100 Carbon Dioxide 35.3 H Anion Gap 3.7 BUN 14 Creatinine 0.7 Est GFR (CKD-EPI 2020) 83.74 Glucose 101 Calcium 8.5 Magnesium Total Bilirubin 0.40 AST 18 ALT 11 Alkaline Phosphatase 74 Troponin I 9 NT-Pro-B Natriuret Pep 52 Total Protein 6.6 Albumin 3.9 COVID-19 Source Nasopharynx SARS-CoV-2 (PCR) Negative Influenza Type A (PCR) Negative Influenza Type B (PCR) Negative RSV (PCR) Negative 10/19/25 06:30 WBC 7.22 RBC 4.01 Hgb 12.8 Hct 38.8 MCV 97 H MCH 31.9 MCHC 33.0 RDW 13.2 Plt Count 220 MPV 9.1 Immature Gran % Neutrophils % Lymphocytes % Monocytes % Eosinophils % Basophils % Nucleated RBC % Absolute Neutrophils Absolute Lymphocytes Absolute Monocytes Absolute Eosinophils Absolute Basophils VBG pH VBG pCO2 VBG pO2 VBG HCO3 VBG Total CO2 VBG O2 Saturation VBG Base Excess Sodium 140 Potassium 3.9 Chloride 103 Carbon Dioxide 33.9 H Anion Gap 3.1 BUN 15 Creatinine 0.6 Est GFR (CKD-EPI 2020) 105.75 Glucose 151 H Calcium 8.3 Magnesium 2.1 Total Bilirubin AST ALT Alkaline Phosphatase Troponin I NT-Pro-B Natriuret Pep Total Protein Albumin COVID-19 Source SARS-CoV-2 (PCR) Influenza Type A (PCR) Influenza Type B (PCR) RSV (PCR) Time Spent with Patient Time Spent with Patient: >50 minutes Time was spent: preparing to see the patient(eg.review tests), obtaining and/or reviewing separately otained hiistory, ordering medications,tests, procedures, referring, communicating with other health care management specialist, indepentently interpreting results, counseling the patient and care coordination
--- NOTE | 2025-10-19 11:20 | PDOC.CMIN ---
Date of service: 10/19/25 Time of Service: 11:21 Care Management Initial Assmt Initial Assessment Reason for Hospitalization: COPD excerabtion Functional Status/Living Situation Patient Presentation: Carmen was resting in her bed when the CM met with her. She presented to the ED for evaluation of dyspnea. Per report, she is being followed by Pulmonology, and Respiratory Therapy is assessing whether she meets criteria for a home nebulizer. She reports that she is feeling and looking better. Per the provider, discharge is likely tomorrow. Carmen shared that she lives in [facility] [place] [facility] with her daughter and also spends time at another daughter?s home, also located in [facility]. She stated that she is independent at baseline. She uses a 4WW and has home oxygen, which she uses as needed. For discharge, Carmen reports she will require an RCT ride home, as she utilizes the RCT bus in the community. She does not currently have home health services and does not feel they are necessary at this time. She requested that her laundry be washed prior to discharge; the [employer] has been notified. She also noted that she continues to feel wheezy and would like this to improve before leaving the hospital. CM will continue to follow. Town of Residence: [facility] Resides with: Child Significant Other/Family: Local Natural Supports: Two daughters, both supportive Employment Status: Unemployed Instrumental Activities of Daily Living (ADLs): Independent Medications Medication Management: No Issues/Barriers identified Physical Functioning/Mobility Assistive Device: 4WW, home O2 Advance Directives Advance Directives: Do you have an Advance Directive: N 02/05/21, 16:30 AD On File at [facility]: N 02/05/21, 16:30 Date Asked 10/18/25 10/18/25, 12:43 AD Date Reviewed COLST On File at [facility] No 11/17/24, 16:08 COLST Date Scanned Code Status Resuscitation Status Full Code Portal Pt does not currently have a portal and education provided: Yes Insurance Coverage/Financial Issues Insurance: Medicaid of [place] - [id number] Care Team Visit Care Team Role Provider Type Javier Tyler Primary Care Provider NON-[facility] STAFF PHYSICIAN Gerardo Talavera MD Emergency Provider [facility] STAFF PHYSICIAN Ahsan Lizarraga MD Admit Provider [facility] STAFF PHYSICIAN Attending Provider Discharge Potential Discharge Needs: PCP F/U Appt Anticipated Barriers to Discharge: None Identified Patient/Family Education Needs: Review discharge instructions, discuss Ask Me Three Transportation: Private vehicle Plan: Anticipate Carmen will return home once medically cleared. She will transport via private vehicle by RCT vs the bus. She will follow up with her PCP and discharge plan of care. CM will continue to follow. Social Determinants of Health Screening Social Determinants of health last assessed in clinic: 10/19/25 Will the Patient Participate in the Screening?: Yes Do you worry about having a steady place to live?: no Problems where you live: no known problems In the past 12 months, have you had to go without electric, gas, oil or water in your home?: no 1. Within the past 12 months, we worried whether our food would run out before we got money to buy more.: Never true 2. Within the past 12 months, the food we bought just didn't last and we didn't have money to get more.: Never true Has lack of transportation kept you from medical appointments or from doing things needed for daily living?: no Has anyone in your life made you feel unsafe or unsupported?: no How hard is it for you to pay for the very basics like food, housing, medical care, and heating? Would you say it is:: Not hard at all Do you want help finding or keeping work or a job?: I do not need or want help If for any reason you need help with day-to-day activities such as bathing, preparing meals, shopping, managing finances, etc., do you get the help you need?: I don?t need any help How often do you feel lonely or isolated from those around you?: Never Do you speak a language other than Italian at home?: No Does the patient want assistance with any of the above?: No PFSH All Active Problems (Updated 10/18/25 @ 14:43 by Ahsan Lizarraga MD) Chronic hypoxic respiratory failure, on home oxygen therapy (Acute) COPD exacerbation (Acute) Acute hypoxemic respiratory failure (Acute) Cellulitis (Acute) 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 (Acute) Obesity (Chronic) Atrial flutter, paroxysmal (Acute) Back pain (Acute) Venous stasis dermatitis (Chronic) Smoking (Acute) Hypertension (Chronic) Vitamin D deficiency (Acute) Dysuria (Acute) Lymphedema (Acute) Screening for colon cancer (Acute) Edema of both lower extremities (Acute) Multifocal pneumonia (Acute) Medical History Sleep apnea Essential hypertension Candidiasis of skin Osteoarthritis 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 Pain in thoracic spine Cellulitis of right lower limb Cardiomegaly Presbyopia Pulmonary embolism (~12/16/21) Morbid obesity 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, on suboxone Hypoxia Pneumonia due to 2019 novel coronavirus SARS-CoV-2 positive COPD (chronic obstructive pulmonary disease) Surgical History H/O total hysterectomy History of femur fracture hardware in femur Family History Mother Diabetes Father Hypertension Social History Smoking/Tobacco Use Status: Current every day Tobacco Type: e-cigarettes Counseling given: provider counseling and support medications Smoking risk assessment performed?: Yes Alcohol Intake: former Drug use: Current Sobriety Substance use type: former substance user Details: Currently on Suboxone Housing: apartment Do you feel safe at home: Yes Do you feel safe in your relationship?: Yes Readmission Within the Past 30 Days Yes or No: Yes Date of First Admission Date of 1st Admission: 10/04/25 Date of this Admission Date of Admission: 10/18/25 This admission was: Through ED Office Visit Since 1st Admission Have you seen your PCP in the office since discharge?: Yes Date of PCP Appointment: last week Had an appointment Been Scheduled?: Yes Speicalist Appointments Have you seen any other specialist since your 1st Admission?: No I. Interview patient and/or Family Difficulty reaching your doctor or getting an office appt?: No Have you had trouble purchasing/ or taking medication?: No Have you had trouble with getting meals at home?: No Did you feel ready for discharge when you left the last time: No Were services received that you thought were set up on disch: Yes Did you call your physician beore you came to the ED?: No Did your physician tell you to come in?: No How do you think you became sick enough to come back?: I feel like my breathing never got back up to par and I want to be wheeze free If the patient had a VNA ordered Did the patient have a VNA order?: No ED visits How many ED visits in the past 12 months: 5
[2025-10-19] MEDS: predniSONE 20 MG TAB 40 MG PO (11:23)
--- NOTE | 2025-10-19 12:38 | PHA.REVIEW2 ---
Pharmacy Admission Review Admission Clinical Review Admission Pharmacy Review: Chronic hypoxic respiratory failure, on home oxygen therapy (Acute) COPD exacerbation (Acute) Atrial flutter, paroxysmal (Acute) aspirin Allergy (Unknown, Verified 10/18/25 12:00) Other (See Comment) codeine Allergy (Unknown, Verified 10/18/25 12:00) Other (See Comment) Resuscitation Status Full Code Height 5 ft 5 in Weight 115.241 kg Pharmacy Admission Review Renal Dosing Renal Dosing: BUN 15 mg/dL (9-23) 10/19/25 06:30 Creatinine 0.6 mg/dL (0.55-1.02) 10/19/25 06:30 Medications needing adjustments: Reviewed (CrCl 75.84 mL/min) List of meds needing interventions: Current medications are okay Anticoagulation Anticoagulation: Hgb 12.8 g/dL (11.2-15.7) 10/19/25 06:30 Hct 38.8 % (36.0-46.0) 10/19/25 06:30 Plt Count 220 10^3/uL (130-400) 10/19/25 06:30 Creatinine 0.6 mg/dL (0.55-1.02) 10/19/25 06:30 DVT Prophylaxis: Reviewed Medications: Apixaban (5mg BID) Opiate Usage Evaluate Pain Scale/Pains Meds: Reviewed (Suboxone 8mg/2mg film once daily) Scheduled Bowel Reg ordered if on Opiates?: No (PRN Miralax) Relevant Labs Relevant Labs: Sodium 140 mmol/L (136-145) 10/19/25 06:30 Potassium 3.9 mmol/L (3.5-5.1) 10/19/25 06:30 Chloride 103 mmol/L (98-107) 10/19/25 06:30 Magnesium 2.1 mg/dL (1.6-2.6) 10/19/25 06:30 Electrolytes, C-Reactive P, ESR: Reviewed (glucose 151 @ 0630 - currently on prednisone 40mg daily) Cardiac Review Cardiac Review: Troponin I 9 ng/L (<35) 10/18/25 12:15 NT-Pro-B Natriuret Pep 52 pg/mL (<300) 10/18/25 12:15 BP, HR, EF%: Reviewed (BP WNL, HR 92) List meds needing interventions: Has order for furosemide 20mg daily QTc Review QTc: Reviewed (449 from 10/18/25) IV to PO Switch IV Medications: Reviewed Home Meds Home Med List reviewed: Intervened Relevent Home Meds Not ordered & why?: Changed betamethasone ointment to patients own order (non-formulary). Patient will need to have brought in from home if they want to use while inpatient Overnight pharmacy had changed Anoro Ellipta (non-formulary) to Stiolto. Patient had their own Anoro inhaler brought in from home. Changed order to patients own, verified, labeled and sent up to floor. Current Meds Current Medication Order Review: Intervened Comments: Prednisone now one ordered yesterday but no order for continued dosing put in. Discussed with provider who asked that order for prednisone 40mg daily be put in with a dose this morning. Pharmacy Antibiotic Review Pharmacy Antibiotic Activity: Reviewed, no change Comments: Patient is on azithromycin PO for COPD exacerbation
--- NOTE | 2025-10-19 13:28 | CHAPLAIN ---
Jonelmeagan was sitting up in bed when I visited. She was pleasant and engaged in a conversation. I explained my role and offered support. Carmen said she is okay and did not seem interested in further conversation
--- NOTE | 2025-10-19 14:19 | TELEFU_ITS ---
Documented by User: Fredi Grace 10/19/25 14:39 Nutrition Note NOTE: F, 59. Height: 165 cm. Wieght: 115 kg. BMI: 42.3 kg/m^2. IBW = 57 kg. The patient was visited for a routine nutrition consult on 10/19/25. The patient reports no concerns with her meals while at the hospital, reporting that the food is good, though she requested to have cake brought up with meals. She reported a diet consistent with high sugar intake, reportedly eating milky way bars and drinking coffee all day, even at night. The patient was unaware of a weight gain of 25 kg from 90 kg on 10/04/25 to 115 kg on 10/18/25. Some of the weight gain may be attributable to the edema on lower legs, which are noticeably swollen and scabbing. The patient reports a stable food/family situation outside of the hospital, splitting time between living with two daughters who make healthy, home-cooked meals for her. Estimated Nutritional Requirements: 2,425 kcal/day (MSJ; out of bed, ambulatory). Reccomend -500 kcal/day for weight loss given obesity (1,925 kcal/day). Protein = 86-115 g/day (1.5-2.9 g/kg IBW). Fluid = 2,425 mL/day (1m L/kcal). No nutrition-focused physical exam was performed, but the patient remains obese and on an upward trajectory in weight, though it remains to be seen whether weight gain will continue should the edema be resolved. Reccomend to monitor weight going forward. No drastic nutritional intervention at this time; reccomend deficit of 500 kcal/day for weight loss. Documented by User: Alberto Kamara RDN 10/19/25 14:44 Date of service: 10/19/25 Time of Service: 14:40 Nutrition Note NOTE: F, 59. Height: 165 cm. Wieght: 115 kg. BMI: 42.3 kg/m^2. IBW = 57 kg. The patient was visited for a routine nutrition assessment on 10/19/25. The patient reports no concerns with her meals while at the hospital, reporting that the food is good, though she requested to have cake brought up with meals. She reported a diet consistent with high sugar intake, reportedly eating milky way bars and drinking coffee all day, even at night. The patient was unaware of a weight gain of 25 kg from 90 kg on 10/04/25 to 115 kg on 10/18/25. Some of the weight gain may be attributable to the edema on lower legs, which are noticeably swollen and scabbing. The patient reports a stable food/family situation outside of the hospital, splitting time between living with two daughters who make healthy, home-cooked meals for her. Estimated Nutritional Requirements: 2,425 kcal/day (MSJ; out of bed, ambulatory). Recommend -500 kcal/day for weight loss given obesity (1,925 kcal/day). Protein = 86-115 g/day (1.5-2.9 g/kg IBW). Fluid = 2,425 mL/day (1mL/kcal). No nutrition-focused physical exam was performed, but the patient remains obese and on an upward trajectory in weight, though it remains to be seen whether weight gain will continue should the edema be resolved. Recommend to monitor weight going forward. No aggressive nutritional intervention at this time; recommend deficit of 500 kcal/day for weight loss. will continue to follow up this admission. Will continue to follow and will offer outpatient nutrition counseling upond discharge. Time Spent in Nutritional Counseling and Treatment: 5 min
[2025-10-20 04:50] VITALS: BP 142/79; PULSE 80; RESP 18; TEMP 36.2; O2SAT 92
[2025-10-20 07:29] VITALS: BP 120/72; PULSE 82; RESP 16; TEMP 36.5; O2SAT 89
[2025-10-20] MEDS: Ipratropium/Albuterol 4 GM 120 PUFF INH IH ×2 (07:54→10:54)
[2025-10-20] MEDS: ANORO ELLIPTA 1 EACH IH (07:54)
[2025-10-20] MEDS: Furosemide 20 MG TAB PO (08:25)
[2025-10-20] MEDS: predniSONE 20 MG TAB 40 MG PO (08:26)
[2025-10-20] MEDS: Apixaban 5 MG TAB PO (08:26)
[2025-10-20] MEDS: Buprenorphine/Naloxone 8 mg/2 mg FILM 1 EACH SL (08:26)
[2025-10-20] MEDS: Azithromycin 250 MG TAB PO (08:26)
[2025-10-20] MEDS: guaiFENesin 600 MG TABCR PO (08:30)
[2025-10-20 11:16] VITALS: BP 137/85; PULSE 85; RESP 17; TEMP 36.5; O2SAT 92
--- NOTE | 2025-10-20 11:30 | RESPIRATORY ---
Patient set up with home Nebulizer from [facility]. Equipment explained to patient. Patient states she has no further questions at this time.
--- NOTE | 2025-10-20 12:21 | DSE_ITS ---
Date of service: 10/20/25 Time of Service: 12:21 DS: Diagnosis Discharge Diagnosis (1) COPD exacerbation: Status: Resolved (2) Chronic hypoxic respiratory failure, on home oxygen therapy: Status: Acute (3) Atrial flutter, paroxysmal: Status: Acute (4) Drug abuse in remission: Discharge Plan Disposition Patient Disposition: Home Condition: Good Discharge Details Reason For Visit: COPD Exacerbation Admit Date/Time: 10/18/25 14:36 Admit Provider: Ahsan Lizarraga Attending Provider: Ahsan Lizarraga Primary Care Provider: Javier Tyler Hospital Course Hospital Course: Patient initially presented with signs and symptoms consistent with recurrent acute exacerbation of COPD. She was significantly wheezy and was given IV Solu- Medrol in the emergency department and subsequently p.o. prednisone as well as frequent breathing treatments which resulted in improvement of her symptoms. Patient is still mildly wheezy at baseline, but was overheard by both myself, her nurse, and respiratory therapy to be breathing normally when standing outside the room, and upon entering the patient's room the wheezing became more exaggerated and audible. Given the patient is return to her baseline oxygen requirements it was determined that she was stable for discharge home. Patient already has oxygen at home though is reported to not wear it as recommended (1 L at baseline), and will also be sent home with a new nebulizer. She will also be sent with a prolonged steriod taper and daily azithromycin. Home Meds and New Rx's Prescriptions: New azithromycin 250 mg Tablet 250 mg PO DAILY Qty: 90 0RF prednisone 20 mg Tablet See Taper PO DAILY Qty: 53 0RF Taper: Prednisone 10mg taper 40 mg Daily for 5 Days and 0 Hour 30 mg Daily for 5 Days and 0 Hour 20 mg Daily for 5 Days and 0 Hour 10 mg Daily for 5 Days and 0 Hour 5 mg Daily for 5 Days and 0 Hour guaifenesin [Mucus Relief ER] 600 mg Tablet Extended Release 12hr 600 mg PO BID Qty: 20 0RF (DME) nebulizers [facility] See Rx Instructions .Route Qty: 1 0RF Rx Instructions: As directed ipratropium-albuterol 0.5 mg-3 mg(2.5 mg base)/3 mL solution for nebulization 3 ml inhalation Q4H PRN PRNQty: 180 3RF Rx Instructions: for 3 doses ipratropium-albuterol 0.5 mg-3 mg(2.5 mg base)/3 mL solution for nebulization 3 ml inhalation Q4H PRN PRNQty: 180 3RF Rx Instructions: for 3 doses Continued Eliquis 5 mg tablet 5 mg PO BID albuterol sulfate [Ventolin HFA] 90 mcg/actuation HFA aerosol inhaler 2 inh inhalation Q4H PRN umeclidinium-vilanterol [Anoro Ellipta] 62.5-25 mcg/actuation blister with device 1 inh INHALATION DAILY Patient Comments: INHALE ONE PUFF BY MOUTH EVERY DAY buprenorphine-naloxone [Suboxone] 8-2 mg Film 1 film sublingual DAILY Combivent Respimat 20-100 mcg/actuation Mist 1 puff inhalation QID Qty: 1 0RF betamethasone valerate 0.1 % ointment 1 applic TOPICAL BID Patient Comments: APPLY A THIN LAYER TO AFFECTED AREA(S) TWICE WEEKLY 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 Problems: Chronic hypoxic respiratory failure, on home oxygen therapy Javier Tyler [Primary Care Provider, Medicine] Referral Note: PCP office will give you a call to set up a follow up appointment. If you don't hear from them, please give them a call. Activity:: Activity as Tolerated Equipment/Supplies:: No Equipment Needed Diet:: As Tolerated Discharge Orders Discharge Orders: Discharge Order (Routine); Ordered 10/20/25 Ordered By: Ahsan Lizarraga Discharge Data Discharge Date/Time-TO BE ENTERED AT DEPARTURE: 10/20/25 17:21 DS: Summary Time Spent with Patient providing and/or coordinating discharge services: Greater than 30 minutes Status at Discharge Functional status at discharge: independent ambulation Overall status at discharge: patient is back to baseline Mental Status: mental status grossly normal Speech and Movement: speech and movement normal Mood: congruent mood Affect: normal affect Exam Narrative Exam Narrative: well appearing female sitting up on the edge of the bed in no acute distress, AOx4, heart RRR, lungs with minimal end expiratory wheezing heard in bilateral lung bases, abdomen soft, non-tender, non-distended Psych Mental Status: mental status grossly normal Speech and Movement: speech and movement normal Mood: congruent mood Affect: normal affect DS: Data Vitals/I&O Vitals and I&O: Vital Signs Temperature 97.7 F 10/20/25 11:16 Temperature Source Temporal Artery Scan 10/20/25 11:16 Pulse 85 10/20/25 11:16 Pulse Rhythm Regular 10/18/25 17:12 Pulse 95 H 10/18/25 17:01 Respiratory Rate 17 10/20/25 11:16 Respiratory Effort Non-Labored 10/18/25 17:12 Respiratory Depth Shallow 10/18/25 17:12 Respiratory Pattern Tachypnea 10/18/25 17:12 Blood Pressure 137/85 10/20/25 11:16 Blood Pressure Mean 102 10/20/25 11:16 Blood Pressure Position Sitting 10/18/25 11:58 Pulse Oximetry 92 10/20/25 11:16 Oxygen Delivery Method Room Air 10/20/25 11:16 Oxygen Flow Rate 0 10/20/25 11:16 Pain Level 0 10/20/25 11:16 Comment VS taken after RN ambulated with pt in the hallway. Pt denied CP. 10/19/25 18:10 Intake & Output 10/19/25 10/20/25 10/20/25 17:59 05:59 17:59 Intake Total 480 / 480 680 / 1160 240 / 240 Output Total 500 / 500 700 / 700 Balance -20 / -20 680 / 660 -460 / -460 Intake: Oral 480 / 480 680 / 1160 240 / 240 Output: Urine 500 / 500 700 / 700 Other: Urine Color Light Tabby Yellow Urine Appearance Clear Clear Urine Odor Strong Stool Size Small Stool Characteristics Soft Data Completed and Pending Pending Labs at Discharge: 10/18/25 10/18/25 10/18/25 12:15 12:25 14:41 WBC 6.35 RBC 4.16 Hgb 12.8 Hct 40.1 MCV 96 H MCH 30.8 MCHC 31.9 L RDW 13.7 Plt Count 215 MPV 8.9 Immature Gran % 0.5 Neutrophils % 62.3 Lymphocytes % 14.0 Monocytes % 5.7 Eosinophils % 17.0 Basophils % 0.5 Nucleated RBC % 0.0 Absolute Neutrophils 3.96 Absolute Lymphocytes 0.89 L Absolute Monocytes 0.36 Absolute Eosinophils 1.08 H Absolute Basophils 0.03 VBG pH 7.34 VBG pCO2 67 H* VBG pO2 36 VBG HCO3 36 H VBG Total CO2 33 H VBG O2 Saturation 66 VBG Base Excess 10 H Sodium 139 Potassium 3.5 Chloride 100 Carbon Dioxide 35.3 H Anion Gap 3.7 BUN 14 Creatinine 0.7 Est GFR (CKD-EPI 2020) 83.74 Glucose 101 Calcium 8.5 Magnesium Total Bilirubin 0.40 AST 18 ALT 11 Alkaline Phosphatase 74 Troponin I 9 NT-Pro-B Natriuret Pep 52 Total Protein 6.6 Albumin 3.9 COVID-19 Source Nasopharynx SARS-CoV-2 (PCR) Negative Influenza Type A (PCR) Negative Influenza Type B (PCR) Negative RSV (PCR) Negative 10/19/25 06:30 WBC 7.22 RBC 4.01 Hgb 12.8 Hct 38.8 MCV 97 H MCH 31.9 MCHC 33.0 RDW 13.2 Plt Count 220 MPV 9.1 Immature Gran % Neutrophils % Lymphocytes % Monocytes % Eosinophils % Basophils % Nucleated RBC % Absolute Neutrophils Absolute Lymphocytes Absolute Monocytes Absolute Eosinophils Absolute Basophils VBG pH VBG pCO2 VBG pO2 VBG HCO3 VBG Total CO2 VBG O2 Saturation VBG Base Excess Sodium 140 Potassium 3.9 Chloride 103 Carbon Dioxide 33.9 H Anion Gap 3.1 BUN 15 Creatinine 0.6 Est GFR (CKD-EPI 2020) 105.75 Glucose 151 H Calcium 8.3 Magnesium 2.1 Total Bilirubin AST ALT Alkaline Phosphatase Troponin I NT-Pro-B Natriuret Pep Total Protein Albumin COVID-19 Source SARS-CoV-2 (PCR) Influenza Type A (PCR) Influenza Type B (PCR) RSV (PCR) PFSH All Active Problems (Updated 10/21/25 @ 00:02 by KHOA FRIEDMAN) Chronic hypoxic respiratory failure, on home oxygen therapy (Acute) Acute hypoxemic respiratory failure (Acute) Cellulitis (Acute) Hx of nursing home use of blood thinners (Acute) Obesity (Chronic) Atrial flutter, paroxysmal (Acute) Back pain (Acute) Venous stasis dermatitis (Chronic) Smoking (Acute) Hypertension (Chronic) Vitamin D deficiency (Acute) Dysuria (Acute) Lymphedema (Acute) Screening for colon cancer (Acute) Edema of both lower extremities (Acute) Multifocal pneumonia (Acute) Medical History Sleep apnea Essential hypertension Candidiasis of skin Osteoarthritis 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 Pain in thoracic spine Cellulitis of right lower limb Cardiomegaly Presbyopia Pulmonary embolism (~12/16/21) Morbid obesity 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, on suboxone Hypoxia Pneumonia due to 2019 novel coronavirus SARS-CoV-2 positive COPD (chronic obstructive pulmonary disease) Surgical History H/O total hysterectomy History of femur fracture hardware in femur Family History Mother Diabetes Father Hypertension Social History Smoking/Tobacco Use Status: Current every day Tobacco Type: e-cigarettes Counseling given: provider counseling and support medications Smoking risk assessment performed?: Yes Alcohol Intake: former Drug use: Current Sobriety Substance use type: former substance user Details: Currently on Suboxone Housing: apartment Do you feel safe at home: Yes Do you feel safe in your relationship?: Yes Time Spent with Patient Time Spent with Patient: <45 minutes Time was spent: preparing to see the patient(eg.review tests), obtaining and/or reviewing separately otained hiistory, ordering medications,tests, procedures, referring, communicating with other health healthcare science specialist, indepentently interpreting results, counseling the patient and care coordination
--- NOTE | 2025-10-20 12:39 | PDOC.CMDIS ---
Date of service: 10/20/25 Time of Service: 12:40 LACE Index Scoring Tool Questions: Length of Stay (in days): 2 Was the patient admitted via the E.D.?: Yes Comorbidities: Chronic Pulmonary Disease E.D. Visits: 4 Answers: Total Score: 11 Risk of Readmission: High Risk Care Management Discharge Plan Reason for Hospitalization: COPD Discharge Plan: Carmen is being discharged home via [facility] private vehicle. Patient is being sent home with a nebulizer and new RX's sent to [facility] in [place] and plans to have her daughter pick them up for her, pharmacy is open until 6pm. Patient will follow up with community providers and continue per her discharge plan of care. No new services are indicated at the time of discharge. Patient/Family Education Needs: Review discharge instructions, discuss ask me three. Services Needed at Discharge: Transportation ([facility])
== END 2025-10-20 17:21 | disposition home or self-care (01) ==
LOC: ER 14:27 → MS 17:11
PROVIDERS: Admitting Provider Family Medicine; Emergency Provider Student in an Organized Health Care Education/Training Program; PCP Student in an Organized Health Care Education/Training Program; Responsible Provider Family Medicine; Visit Provider Family Medicine
DX: J44.1 Chronic obstructive pulmonary disease with (acute) exacerbation (principal); J96.11 Chronic respiratory failure with hypoxia; Z99.81 Dependence on supplemental oxygen; I48.92 Unspecified atrial flutter; E66.9 Obesity, unspecified; Z68.41 Body mass index [BMI] 40.0-44.9, adult; Z79.01 Long term (current) use of anticoagulants; I87.2 Venous insufficiency (chronic) (peripheral); F17.210 Nicotine dependence, cigarettes, uncomplicated; I10 Essential (primary) hypertension; E55.9 Vitamin D deficiency, unspecified; I89.0 Lymphedema, not elsewhere classified; G47.30 Sleep apnea, unspecified; Z86.711 Personal history of pulmonary embolism; F11.20 Opioid dependence, uncomplicated; Z79.899 Other long term (current) drug therapy
CPT/HCPCS: 00123; 36415; 80048; 80053; 82805; 85027; 87637; 93005; 94640; 96374; 99285; 71046; 83735; 83880; 84484; 85025; 93010; 94664; 94760; 99223; 99233; 99239; G0378; J2919; J3490; J7512; J7613; J7620

== ENCOUNTER 2025-10-27 06:24 | Inpatient (IN) | payer MEDICAID, SELFPAY ==
[2025-10-27] VITALS (112 sets, daily range): BP systolic 92–178; BP diastolic 57–131; PULSE 81–121; RESP 6–45; TEMP 36.4–36.5; O2SAT 86–98
--- NOTE | 2025-10-27 06:14 | ED.GENADUL_ITS ---
Discharge Plan Discharge Details Chief Complaint: SOB Clinical Impression: Acute respiratory failure with hypoxia and hypercarbia, COPD with acute exacerbation Primary Care Provider: Javier Tyler ED Provider: Jaime Villa Home Meds and New Rx's Prescriptions: No Action Eliquis 5 mg tablet 5 mg PO BID albuterol sulfate [Ventolin HFA] 90 mcg/actuation HFA aerosol inhaler 2 inh inhalation Q4H PRN umeclidinium-vilanterol [Anoro Ellipta] 62.5-25 mcg/actuation blister with device 1 inh INHALATION DAILY Patient Comments: INHALE ONE PUFF BY MOUTH EVERY DAY buprenorphine-naloxone [Suboxone] 8-2 mg Film 1 film sublingual DAILY Combivent Respimat 20-100 mcg/actuation Mist 1 puff inhalation QID Qty: 1 0RF furosemide 20 mg tablet 20 mg PO DAILY Patient Comments: TAKE 2 TABLETS BY MOUTH EVERY MORNING azithromycin 250 mg Tablet 250 mg PO DAILY Qty: 90 0RF prednisone 20 mg Tablet See Taper PO DAILY Qty: 53 0RF Taper: Prednisone 10mg taper 40 mg Daily for 5 Days and 0 Hour 30 mg Daily for 5 Days and 0 Hour 20 mg Daily for 5 Days and 0 Hour 10 mg Daily for 5 Days and 0 Hour 5 mg Daily for 5 Days and 0 Hour guaifenesin [Mucus Relief ER] 600 mg Tablet Extended Release 12hr 600 mg PO BID Qty: 20 0RF (DME) nebulizers Mis See Rx Instructions .Route Qty: 1 0RF Rx Instructions: As directed ipratropium-albuterol 0.5 mg-3 mg(2.5 mg base)/3 mL solution for nebulization 3 ml inhalation Q4H PRN PRNQty: 180 3RF Rx Instructions: for 3 doses ipratropium-albuterol 0.5 mg-3 mg(2.5 mg base)/3 mL solution for nebulization 3 ml inhalation Q4H PRN PRNQty: 180 3RF Rx Instructions: for 3 doses HPI General Date/Time Provider Initiated Documentation: 10/27/25 06:40 . HPI Narrative: MDM This is a tachycardic hypertensive but afebrile 59-year-old female with significant work of breathing prolonged expiratory phase with end expiratory wheezes concerning for COPD exacerbation in the setting of hypercarbia with acidemia on VBG. Patient placed on rescue BiPAP upon arrival for her acute respiratory failure with hypoxia and hypercarbia. No recent fevers to suggest increased risk for pneumonia however will obtain chest x-ray. Patient does have history of lower extremity edema so will complete bedside echocardiogram to assess for acute heart failure though patient had a normal ejection fraction 2 years ago. I considered PE however in the absence of chest pain had with wheezes my suspicion was lower for PE so I did not send a D-dimer. I considered sepsis however in the presence of diffuse bilateral wheezes I felt that the risks of antibiotics outweighed the benefits so we will defer empiric coverage. No chest pain to suggest ACS however I obtained an ECG which showed sinus tachycardia rate of 102. No acute injury pattern. Her ECG. Similar to prior from earlier this month. No black or bloody stools to suggest anemia from GI bleed. 6:58 AM Initial reassuring troponin 13 ng/L. Normal magnesium. Basic metabolic panel with no VIRAL. No acute electrolyte abnormalities. Normal reassuring proBNP. CBC showing macrocytosis without anemia. No leukocytosis nor thrombocytopenia. 7:35 AM Negative respiratory viral swab. 8:05 AM No obvious bacterial infiltrate on chest x-ray. Venous blood gas with slightly worsened hypercarbia and acidemia. 8:42 AM Reassuring repeat troponin with no significant delta. 2:55 PM Late charting due to patient care. Patient received prehospital steroids. She was ultimately accepted by Dr. Hays. She had multiple venous blood gas draws in the ED. Her final gas showed improved hypercarbia and improved acidemia. HPI This is a female with a history of COPD and atrial fibrillation presenting with progressive shortness of breath. History obtained from paramedics. The patient has been experiencing a gradual increase in shortness of breath over the past 1 to 2 days. She was observed to have one-word dyspnea, with an oxygen saturation level of 70 percent upon standing. She is not on home oxygen therapy. There is no known history of smoking. The medical team initiated CPAP therapy with DuoNeb, which resulted in an improvement in her oxygen saturation levels. However, due to the ongoing CPAP therapy and her labored breathing, it has been challenging to obtain a comprehensive medical history. She was also administered Solu-Medrol. Her oxygen saturation has been consistently maintained at 99 percent with a pressure of 8 to 10. Patient vapes. Exam General: Well-appearing in no acute distress speaking in complete sentences. Head: Normocephalic, atraumatic. Eye: Extraocular eye movements intact. No conjunctival injection. No scleral icterus. Ear, nose, mouth, throat: Grossly normal inspection. Normal voice, handling secretions normally. Neck: Trachea midline. Cardiovascular: Well-perfused distal extremities. Rapid regular rate Respiratory: Nonlabored respiration. Prolonged expiratory phase with end expiratory wheezes. No tripoding. Speaking in 3-4 word sentences through BiPAP. Gastrointestinal: Nondistended abdomen. Musculoskeletal: Mild 1+ lower extremity nonpitting edema. Moving all 4 ext remities spontaneously. Skin: Normal for age and race, grossly normal temperature and turgor. No acute rash. Neurologic: Alert and appropriate, no apparent acute deficits. Psychiatric: Mood and manner are appropriate. Grooming and personal hygiene are appropriate. Related Data Home Medications ?Medication ?Instructions ?Recorded ?Confirmed buprenorphine 8 mg-naloxone 2 mg 1 film sublingual SINDY LY 12/16/21 10/27/25 sublingual film (Suboxone) ipratropium 20 mcg-albuterol 100 1 puff inhalation QID #1 g 12/18/21 10/27/25 mcg/actuation mist for inhalation (Combivent Respimat) apixaban 5 mg tablet (Eliquis) 5 mg PO BID 03/16/24 albuterol sulfate 90 mcg/actuation 2 inh inhalation Q4 H PRN 10/25/24 10/27/25 aerosol inhaler (Ventolin HFA) umeclidinium 62.5 mcg-vilanterol 1 inh inhalation MARCELA Y 10/06/25 10/27/25 25 mcg/actuation powdr for inhalation (Anoro Ellipta) furosemide 20 mg tablet 20 mg PO DAILY 10/18/2509/30 azithromycin 250 mg tablet 250 mg PO DAILY #90 tabs 10/27/25 guaifenesin 600 mg tablet, 600 mg PO BID #20 tabs 09/3010/27/25 extended release 12 hr (Mucus Relief ER) ipratropium 0.5 mg-albuterol 3 mg 3 ml inhalation Q4H PRN PRN #180 mL 10/20/25 10/27/25 (2.5 mg base)/3 mL nebulization soln ipratropium 0.5 mg-albuterol 3 mg 3 ml inhalation Q4H PRN PRN #180 mL 10/20/25 10/27/25 (2.5 mg base)/3 mL nebulization soln nebulizers #1 ea 10/20/25 10/27/25 prednisone 20 mg tablet See Taper PO DAILY #53 tabs 10/20/25 10/27/25 Previous Rx's ?Medication ?Instructions ?Recorded ipratropium 20 mcg-albuterol 100 1 puff inhalation QID #1 g 12/18/21 mcg/actuation mist for inhalation (Combivent Respimat) azithromycin 250 mg tablet 250 mg PO DAILY #90 tabs guaifenesin 600 mg tablet, 600 mg PO BID #20 tabs 09/30 01/23 extended release 12 hr (Mucus Relief ER) ipratropium 0.5 mg-albuterol 3 mg 3 ml inhalation Q4H PRN PRN #180 mL 10/20/25 (2.5 mg base)/3 mL nebulization soln ipratropium 0.5 mg-albuterol 3 mg 3 ml inhalation Q4H PRN PRN #180 mL 10/20/25 (2.5 mg base)/3 mL nebulization soln nebulizers #1 ea 10/20/25 prednisone 20 mg tablet See Taper PO DAILY #53 tabs 10/20/25 Allergies Allergy/AdvReac Type Severity Reaction Status Date / Time aspirin Allergy Unknown Other (See Verified 10/27/25 06:17 Comment) codeine Allergy Unknown Other (See Verified 10/27/25 06:17 Comment) General SADIA: 2 Critical Care Time Critical Care Time Critical Care Time: Yes Total Critical Care Time: 45 Attestation: Acute respiratory failure hypoxia hypercarbia PFSH All Active Problems (Updated 10/27/25 @ 08:46 by Jaime Villa MD) COPD with acute exacerbation (Acute) Acute respiratory failure with hypoxia and hypercarbia (Acute) Chronic hypoxic respiratory failure, on home oxygen therapy (Acute) Acute hypoxemic respiratory failure (Acute) Cellulitis (Acute) 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 (Acute) Obesity (Chronic) Atrial flutter, paroxysmal (Acute) Back pain (Acute) Venous stasis dermatitis (Chronic) Smoking (Acute) Hypertension (Chronic) Vitamin D deficiency (Acute) Dysuria (Acute) Lymphedema (Acute) Screening for colon cancer (Acute) Edema of both lower extremities (Acute) Multifocal pneumonia (Acute) Medical History Sleep apnea Essential hypertension Candidiasis of skin Osteoarthritis 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 Pain in thoracic spine Cellulitis of right lower limb Cardiomegaly Presbyopia Pulmonary embolism (~12/16/21) Morbid obesity 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, on suboxone Hypoxia Pneumonia due to 2019 novel coronavirus SARS-CoV-2 positive COPD (chronic obstructive pulmonary disease) Surgical History H/O total hysterectomy History of femur fracture hardware in femur Family History Mother Diabetes Father Hypertension Social History Smoking/Tobacco Use Status: Current every day Tobacco Type: e-cigarettes Counseling given: provider counseling and support medications Smoking risk assessment performed?: Yes Alcohol Intake: former Drug use: Current Sobriety Substance use type: former substance user Details: Currently on Suboxone Housing: apartment Do you feel safe at home: Yes Do you feel safe in your relationship?: Yes POCUS Exam (ED) Limited Cardiac Exam DATE OF EXAM: 10/27/25 TIME OF EXAM: 08:43 PROVIDER THAT PERFORMED THE STUDY: Jaime Villa IS THIS A REPEAT EXAM DURING THIS ENCOUNTER: no REASON FOR EXAM: Dyspnea VISUALIZED STRUCTURES: Left ventricle and LVOT VIEW OBTAINED: Apical 4-Chamber, Parasternal long-axis and Subxiphoid PERTINENT FINDINGS/IMPRESSION: No pericardial effusion DIFFERENTIAL DIAGNOSES: Aortic outflow track less than 4 cm, good squeeze, no significant pericardial effusion. Patient could not tolerate apical 4-chamber. No significant B-lines bilaterally. Exam complete
--- NOTE | 2025-10-27 06:15 | RT.EKG_ITS ---
APPROVED REPORT Exam: Resting ECG Reason for Exam: Shortness of breath Patient Location: E HR:102 bpm ECG Measurements Heart Rate 102 AXIS RI 105 P 40 QRSd 94 QRS 29 QT 342 T 76 QTc 440 Conclusion Sinus rhythm...normal P axis, V-rate 60- 99 Repol abnrm suggests ischemia, anterolateral...ST dep, T neg, I aVL V2-V6 No Occlusion MN
[2025-10-27] MEDS: Albuterol/Ipratropium 3 ML UPD VIAL (06:23)
[2025-10-27] MEDS: Albuterol/Ipratropium 3 ML UPD VIAL UPD ×4 (06:24→22:18)
[2025-10-27 06:27] LABS: BE (Venous) 5 mmol/L (-2-3); HCO3 (Venous) 32 mmol/L (23-28); O2 Sat (Venous) 98 %; TCO2 (Venous) 29 mmol/L (24-29); pO2 (Venous) 98 mmHg
[2025-10-27 06:29] LABS: pCO2 (Venous) 69 mmHg (41-51)
[2025-10-27 06:38] LABS: Abs Immature Grans 0.03 10^3/uL (0.0-0.06); HCT 41.2 % (36.0-46.0); HGB 13.3 g/dL (11.2-15.7); Immature Grans % 0.4 %; MCH 31.4 pg (27.0-33.0); MCHC 32.3 % (32.0-36.0); MCV 97 fL (80-95); MPV 8.8 fL (8.0-11.0); Platelet Count 207 10^3/uL (130-400); RBC 4.24 10^6/uL (3.93-5.22); RDW 13.4 % (11.7-14.6); RDW-SD 48.1 fL; WBC 7.44 10^3/uL (4.4-10.8)
[2025-10-27 06:49] LABS: Magnesium 2.1 mg/dL (1.6-2.6)
[2025-10-27 06:50] LABS: Anion Gap 4.4 mmol/L (3-11); BUN 11 mg/dL (9-23); CO2 33.6 mmol/L (20.0-31.0); Calcium 8.7 mg/dL (8.3-10.6); Chloride 105 mmol/L (98-107); Glucose 87 mg/dL (74-106); Potassium 4.3 mmol/L (3.5-5.1); Sodium 143 mmol/L (136-145)
[2025-10-27 06:51] LABS: Troponin I 13 ng/L (<35)
--- NOTE | 2025-10-27 07:12 | W.PC.ACHO1 ---
Registration Status: REG ER Primary Language: Preferred Language: ED Information & Data Chief Complaint SOB 10/27/25 06:15 Chief Complaint SOB 10/27/25 06:06 Triage Note PT has HX COPD and A FIB pt 10/27/25 06:06 has worsening SOB X1-2 day. PT was 70% for EMS with RR of 30. PT started on Cpap in field. PT given 1 DuoNeb and solumedrol in field. PT was then 90% on cpap. 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 (Last Reviewed 10/18/25 @ 12:52 by Gerardo Talavera MD) H/O total hysterectomy History of femur fracture Most Recent Vital Signs Temperature 36.4 C L 10/27/25 06:06 Temperature Source Temporal Artery Scan 10/27/25 06:06 Pulse 111 H 10/27/25 06:50 Pulse 111 H 10/27/25 06:50 Respiratory Rate 35 H 10/27/25 06:50 Respiratory Effort Labored, Accessory Muscle Use 10/27/25 07:07 Respiratory Depth Shallow 10/27/25 07:07 Blood Pressure 170/110 H 10/27/25 06:46 Blood Pressure Mean 128 10/27/25 06:46 Pulse Oximetry 92 10/27/25 07:10 Oxygen Delivery Method Bi-pap 10/27/25 07:10 Fraction of Inspired Oxygen (FIO2) 10/27/25 07:10 Pain Level 7 10/27/25 06:06 Comment RT paged re sats, pt repositioned to hifowlers 10/27/25 06:50 Allergies aspirin Allergy (Unknown, Verified 10/27/25 06:17) Other (See Comment) codeine Allergy (Unknown, Verified 10/27/25 06:17) Other (See Comment) IV IV Catheter Type [Left Hand] Saline Lock IV Catheter Gauge [Left Hand] 20 Diagnostics 10/27/25 10/27/25 10/27/25 Range/Units 07:12 06:40 06:15 WBC 7.44 (4.4-10.8) 10^3/uL RBC 4.24 (3.93-5.22) 10^6/uL Hgb 13.3 (11.2-15.7) g/dL Hct 41.2 (36.0-46.0) % MCV 97 H (80-95) fL MCH 31.4 (27.0-33.0) pg MCHC 32.3 (32.0-36.0) % RDW 13.4 (11.7-14.6) % Plt Count 207 (130-400) 10^3/uL MPV 8.8 (8.0-11.0) fL Immature Gran % 0.4 % Neutrophils % 55.3 % Lymphocytes % 19.8 % Monocytes % 7.7 % Eosinophils % 16.4 % Basophils % 0.4 % Nucleated RBC % 0.0 (0.0-0.3) % Absolute Neutrophils 4.12 (1.2-6.7) 10^3/uL Absolute Lymphocytes 1.47 (1.2-3.4) 10^3/uL Absolute Monocytes 0.57 (0.1-0.8) 10^3/uL Absolute Eosinophils 1.22 H (0.0-0.7) 10^3/uL Absolute Basophils 0.03 (0.0-0.2) 10^3/uL VBG pH 7.27 L (7.31-7.41) VBG pCO2 69 H* (41-51) mmHg VBG pO2 98 mmHg VBG HCO3 32 H (23-28) mmol/L VBG Total CO2 29 (24-29) mmol/L VBG O2 Saturation 98 % VBG Base Excess 5 H (-2-3) mmol/L Sodium 143 (136-145) mmol/L Potassium 4.3 (3.5-5.1) mmol/L Chloride 105 (98-107) mmol/L Carbon Dioxide 33.6 H (20.0-31.0) mmol/L Anion Gap 4.4 (3-11) mmol/L BUN 11 (9-23) mg/dL Creatinine 0.69 (0.55-1.02) mg/dL Est GFR (CKD-EPI 2020) 86.54 (mL/min/1.73m2) Glucose 87 (74-106) mg/dL Calcium 8.7 (8.3-10.6) mg/dL Magnesium 2.1 (1.6-2.6) mg/dL Troponin I Pending 13 (<35) ng/L NT-Pro-B Natriuret Pep 69 (<300) pg/mL COVID-19 Source Pending SARS-CoV-2 (PCR) Pending Influenza Type A (PCR) Pending Influenza Type B (PCR) Pending RSV (PCR) Pending Intake and Output - 24 Hour Total 10/27/25 06:03 thru 10/27/25 06:06 Weight 123.1 kg Falls Risk Assessment History of Falls No History 10/27/25 06:15 Contributing Factors No Factors,Unstable 10/27/25 06:15 Ambulatory Aids Independent 10/27/25 06:15 Tubes/Lines W/no contributing factors 10/27/25 06:15 Gait Evaluation No gait disturbance 10/27/25 06:15 Cognition No cognitive impairment 10/27/25 06:15 Fall Total Score 13 10/27/25 06:15 Level of Risk Standard/Low Risk 10/27/25 06:15 Problems (Last Reviewed 10/18/25 @ 12:52 by Gerardo Talavera MD) Acute respiratory failure with hypoxia and hypercarbia (Acute) Attestation Statement: By documenting the first initial, last name, and credentials of the reporting nurse below, both parties acknowledge that all relevant information regarding the patient handoff has been communicated, and that all questions have been addressed to ensure continuity and safety of care. Additional Patient Information/Comments: Report Received From:
[2025-10-27 07:28] LABS: COVID-19 PCR Negative (Negative); RSV PCR Negative (Negative)
[2025-10-27 08:01] LABS: BE (Venous) 5 mmol/L (-2-3); HCO3 (Venous) 33 mmol/L (23-28); O2 Sat (Venous) 74 %; TCO2 (Venous) 30 mmol/L (24-29); pO2 (Venous) 42 mmHg
[2025-10-27 08:03] LABS: pCO2 (Venous) 73 mmHg (41-51)
--- NOTE | 2025-10-27 08:06 | DI.RAD_ITS ---
Exam(s) XR PORTABLE CHEST AP EXAM: XR PORTABLE CHEST AP CLINICAL HISTORY: Shortness of breath TECHNIQUE: 2D digital imaging was performed of the chest. One image was obtained. An AP view was obtained. COMPARISON: CR XR PORTABLE CHEST AP from 11/17/2024 CR XR CHEST 2V PA LATERAL from 10/18/2025 FINDINGS: MEDIASTINUM: Normal. HEART: Normal. PULMONARY VASCULATURE: The pulmonary vasculature is unchanged compared to the prior examinations. LUNGS: There is stable chronic parenchymal changes in the lungs. No focal consolidating infiltrate is present. PLEURAL SPACE: No pleural effusion or pneumothorax. BONE:Within normal limits for the patient's age. OTHER FINDINGS:Normal. IMPRESSION: 1. No definite acute pulmonary process. 2. The preliminary [facility] report was reviewed. DATA REPOSITORY: RADIATION DOSE DELIVERED:
[2025-10-27] MEDS: Normal Saline 500 ML IV (08:09)
[2025-10-27 08:25] LABS: Troponin I 17 ng/L (<35)
[2025-10-27] MEDS: DOXYCYCLINE 100 MG in Normal Saline 100 ML IVPB (09:14)
[2025-10-27 09:23] LABS: BE (Venous) 4 mmol/L (-2-3); HCO3 (Venous) 32 mmol/L (23-28); O2 Sat (Venous) 65 %; TCO2 (Venous) 29 mmol/L (24-29); pO2 (Venous) 37 mmHg
--- NOTE | 2025-10-27 09:24 | DI.[facility]_ITS ---
PROCEDURE INFORMATION: Exam: XR Chest Exam date and time: 10/27/2025 8:00 AM Age: 59 years old Clinical indication: Shortness of breath TECHNIQUE: Imaging protocol: Radiologic exam of the chest. Views: 1 view. COMPARISON: CR XR CHEST 2V PA LATERAL 10/18/2025 1:00 PM FINDINGS: Lungs: There is pulmonary vascular congestion without overt pulmonary edema. Pleural spaces: Unremarkable. No pleural effusion. No pneumothorax. Heart/Mediastinum: Unremarkable. No cardiomegaly. Bones/joints: Unremarkable. IMPRESSION: Pulmonary vascular congestion. Dictated and Authenticated by: Enedina Morales MD. Orderin Daisy Sandoval MD
[2025-10-27 09:26] LABS: pCO2 (Venous) 72 mmHg (41-51)
[2025-10-27 11:09] LABS: BE (Venous) 4 mmol/L (-2-3); HCO3 (Venous) 31 mmol/L (23-28); O2 Sat (Venous) 83 %; TCO2 (Venous) 28 mmol/L (24-29); pO2 (Venous) 47 mmHg
[2025-10-27 11:12] LABS: pCO2 (Venous) 61 mmHg (41-51)
--- NOTE | 2025-10-27 12:08 | W.PM.HP.N ---
Date of service: 10/27/25 Time of Service: 12:00 Assessment and Plan Assessment and plan (1) COPD exacerbation: Status: Acute Assessment and plan: Initially patient required CPAP, off after about 6 hours Will continue doxycycline. Tick/lyme panel sent. Hold steroids. Continue scheduled duonebs overnight per discussion with RT Downgraded from ICU to floor Anticipate DC home tomorrow (2) Chronic hypoxic respiratory failure, on home oxygen therapy: Status: Acute Assessment and plan: Home O2 used PRN (3) Atrial flutter, paroxysmal: Status: Acute Assessment and plan: Continue home apixaban Continue home furosemide, consider repeat echo (4) Drug abuse in remission: Assessment and plan: Continue MAT History of Present Illness History of Present Illness Chief Complaint: shortness of breath Narrative: Carmen Beyer is a 59 year old woman presenting October 27 with 2 days of worsening shortness of breath. This is her 4th ED visit, and 3rd admission, in the last 30 days. She reports no recent illness. She reports that she has jose luis taking her medications as directed. No chest pain, no abdominal pain, no N/V/D. EMS found her to have SpO2 in the 70's. In the ED she was tachycardic HR 107, tachypneic 30, hypertensive 178/131. EKG without acute changes. CXR without acute pathology. No leukocytosis. Negative troponins. CO2 elevated as before, 33.6. On arrival in the ED she was started on CPAP and duonebs. She was also started on steroids and given a 500 ml fluid bolus. PMH includes COPD, atrial fibrillation. No known heart failure. 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) Obesity (Chronic) Atrial flutter, paroxysmal (Acute) Back pain (Acute) Venous stasis dermatitis (Chronic) Smoking (Acute) Hypertension (Chronic) Vitamin D deficiency (Acute) Dysuria (Acute) Lymphedema (Acute) Screening for colon cancer (Acute) Edema of both lower extremities (Acute) Multifocal pneumonia (Acute) Medical History Sleep apnea Essential hypertension Candidiasis of skin Osteoarthritis 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 Pain in thoracic spine Cellulitis of right lower limb Cardiomegaly Presbyopia Pulmonary embolism (~12/16/21) Morbid obesity 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, on suboxone Hypoxia Pneumonia due to 2019 novel coronavirus SARS-CoV-2 positive COPD (chronic obstructive pulmonary disease) Surgical History H/O total hysterectomy History of femur fracture hardware in femur Family History Mother Diabetes Father Hypertension Social History Smoking/Tobacco Use Status: Current every day Tobacco Type: e-cigarettes Counseling given: provider counseling and support medications Smoking risk assessment performed?: Yes Alcohol Intake: former Drug use: Current Sobriety Substance use type: former substance user Details: Currently on Suboxone Housing: apartment Do you feel safe at home: Yes Do you feel safe in your relationship?: Yes Meds Allergies and Home Medications Allergies Allergy/AdvReac Type Severity Reaction Status Date / Time aspirin Allergy Unknown Other (See Verified 10/27/25 06:17 Comment) codeine Allergy Unknown Other (See Verified 10/27/25 06:17 Comment) Home Medications ?Medication ?Instructions ?Recorded ?Confirmed ?Type buprenorphine 8 mg-naloxone 2 mg 1 film sublingual DAILY 12/16/21 10/27/25 History sublingual film (Suboxone) ipratropium 20 mcg-albuterol 100 1 puff inhalation QID #1 g 12/18/21 10/27/25 Rx mcg/actuation mist for inhalation (Combivent Respimat) apixaban 5 mg tablet (Eliquis) 5 mg PO BID 03/16/24 10/27/25 History albuterol sulfate 90 mcg/actuation 2 inh inhalation Q4H PRN 10/25/24 10/27/25 History aerosol inhaler (Ventolin HFA) umeclidinium 62.5 mcg-vilanterol 1 inh inhalation DAILY 10/06/25 10/27/25 History 25 mcg/actuation powdr for inhalation (Anoro Ellipta) furosemide 20 mg tablet 20 mg PO DAILY 10/18/25 10/27/25 History azithromycin 250 mg tablet 250 mg PO DAILY #90 tabs 10/20/25 10/27/25 Rx guaifenesin 600 mg tablet, 600 mg PO BID #20 tabs 10/20/25 10/27/25 Rx extended release 12 hr (Mucus Relief ER) ipratropium 0.5 mg-albuterol 3 mg 3 ml inhalation Q4H PRN PRN #180 mL 10/20/25 10/27/25 Rx (2.5 mg base)/3 mL nebulization soln ipratropium 0.5 mg-albuterol 3 mg 3 ml inhalation Q4H PRN PRN #180 mL 10/20/25 10/27/25 Rx (2.5 mg base)/3 mL nebulization soln nebulizers #1 ea 10/20/25 10/27/25 Rx prednisone 20 mg tablet See Taper PO DAILY #53 tabs 10/20/25 10/27/25 Rx Exam Narrative Exam Narrative: General: This is a pleasant woman in no distress HEENT: Normocephalic, atraumatic CV: RRR Resp: Diffuse soft expiratory wheeze, much improved Abd: soft, NTND MSK: voluntary motion x4 Neuro: awake, alert, no focal deficits Results Labs 10/27/25 06:15 10/27/25 06:15 Labs: Laboratory Results - last 24 hr 10/27/25 10/27/25 10/27/25 06:15 06:40 07:49 WBC 7.44 RBC 4.24 Hgb 13.3 Hct 41.2 MCV 97 H MCH 31.4 MCHC 32.3 RDW 13.4 Plt Count 207 MPV 8.8 Immature Gran % 0.4 Neutrophils % 55.3 Lymphocytes % 19.8 Monocytes % 7.7 Eosinophils % 16.4 Basophils % 0.4 Nucleated RBC % 0.0 Absolute Neutrophils 4.12 Absolute Lymphocytes 1.47 Absolute Monocytes 0.57 Absolute Eosinophils 1.22 H Absolute Basophils 0.03 VBG pH 7.27 L 7.26 L VBG pCO2 69 H* 73 H* VBG pO2 98 42 VBG HCO3 32 H 33 H VBG Total CO2 29 30 H VBG O2 Saturation 98 74 VBG Base Excess 5 H 5 H Sodium 143 Potassium 4.3 Chloride 105 Carbon Dioxide 33.6 H Anion Gap 4.4 BUN 11 Creatinine 0.69 Est GFR (CKD-EPI 2020) 86.54 Glucose 87 Calcium 8.7 Magnesium 2.1 Troponin I 13 17 NT-Pro-B Natriuret Pep 69 COVID-19 Source Nasopharynx SARS-CoV-2 (PCR) Negative Influenza Type A (PCR) Negative Influenza Type B (PCR) Negative RSV (PCR) Negative 10/27/25 10/27/25 08:56 11:01 WBC RBC Hgb Hct MCV MCH MCHC RDW Plt Count MPV Immature Gran % Neutrophils % Lymphocytes % Monocytes % Eosinophils % Basophils % Nucleated RBC % Absolute Neutrophils Absolute Lymphocytes Absolute Monocytes Absolute Eosinophils Absolute Basophils VBG pH 7.25 L 7.31 VBG pCO2 72 H* 61 H VBG pO2 37 47 VBG HCO3 32 H 31 H VBG Total CO2 29 28 VBG O2 Saturation 65 83 VBG Base Excess 4 H 4 H Sodium Potassium Chloride Carbon Dioxide Anion Gap BUN Creatinine Est GFR (CKD-EPI 2020) Glucose Calcium Magnesium Troponin I NT-Pro-B Natriuret Pep COVID-19 Source SARS-CoV-2 (PCR) Influenza Type A (PCR) Influenza Type B (PCR) RSV (PCR) Last Vital Signs Temp 36.4 C L 10/27/25 06:06 Pulse 89 10/27/25 11:53 Resp 25 H 10/27/25 11:53 BP 132/78 10/27/25 11:45 Pulse Ox 91 L 10/27/25 11:53 VTE Prohylaxis Risk Level: Moderate/High Risk Contraindications: None Prophylaxis: Patient anticoagulated Time Spent Time spent with Patient: 55-74 minutes Time was spent: preparing to see the patient(eg.review tests), obtaining and/or reviewing separately otained hiistory, ordering medications,tests, procedures, referring, communicating with other health personal care home administrator, indepentently interpreting results, counseling the patient and care coordination
--- NOTE | 2025-10-27 13:11 | PT.INNT ---
Date of service: 10/27/25 Time of Service: 13:11 PT Notes Visit Reasons: [place] Spoke with Dr. Hays regarding patient PT consult received. Requested to hold PT evaluation until tomorrow.
--- NOTE | 2025-10-27 14:32 | W.PC.ACHO ---
Registration Status: REG ER Primary Language: Preferred Language: ED Information & Data Chief Complaint SOB 10/27/25 06:15 Chief Complaint SOB 10/27/25 06:06 Triage Note PT has HX COPD and A FIB pt 10/27/25 06:06 has worsening SOB X1-2 day. PT was 70% for EMS with RR of 30. PT started on Cpap in field. PT given 1 DuoNeb and solumedrol in field. PT was then 90% on cpap. 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 Pain in thoracic spine Cellulitis of right lower limb Cardiomegaly Presbyopia Pulmonary embolism (~12/16/21) Morbid obesity Drug abuse in remission Hypoxia Pneumonia due to 2019 novel coronavirus SARS-CoV-2 positive COPD (chronic obstructive pulmonary disease) (Last Reviewed 10/18/25 @ 12:52 by Gearrdo Talavera MD) H/O total hysterectomy History of femur fracture Most Recent Vital Signs Temperature 36.4 C L 10/27/25 06:06 Temperature Source Temporal Artery Scan 10/27/25 06:06 Pulse 85 10/27/25 14:15 Pulse 86 10/27/25 14:15 Respiratory Rate 12 10/27/25 14:15 Respiratory Effort Labored, Accessory Muscle Use 10/27/25 07:07 Respiratory Depth Shallow 10/27/25 07:07 Blood Pressure 134/84 10/27/25 14:15 Blood Pressure Mean 97 10/27/25 14:15 Pulse Oximetry 90 L 10/27/25 14:15 Oxygen Delivery Method Bi-pap 10/27/25 07:58 Fraction of Inspired Oxygen (FIO2) 21 10/27/25 11:53 Pain Level 7 10/27/25 06:06 Comment RT paged re sats, pt repositioned to hifowlers 10/27/25 06:50 Allergies aspirin Allergy (Unknown, Verified 10/27/25 06:17) Other (See Comment) codeine Allergy (Unknown, Verified 10/27/25 06:17) Other (See Comment) IV IV Catheter Type [Left Hand] Peripheral IV IV Catheter Gauge [Left Hand] 18 Diet Orders Category Date Time Status Regular/Normal [DIET] Nutrition 10/27/25 Lunch Active Diagnostics 10/27/25 10/27/2510/27/25 Range/Units 11:01 08:56 07:49 WBC (4.4-10.8) 10^3/uL RBC (3.93-5.22) 10^6/uL Hgb (11.2-15.7) g/dL Hct (36.0-46.0) % MCV (80-95) fL MCH (27.0-33.0) pg MCHC (32.0-36.0) % RDW (11.7-14.6) % Plt Count (130-400) 10^3/uL MPV (8.0-11.0) fL Immature Gran % % Neutrophils % % Lymphocytes % % Monocytes % % Eosinophils % % Basophils % % Nucleated RBC % (0.0-0.3) % Absolute Neutrophils (1.2-6.7) 10^3/uL Absolute Lymphocytes (1.2-3.4) 10^3/uL Absolute Monocytes (0.1-0.8) 10^3/uL Absolute Eosinophils (0.0-0.7) 10^3/uL Absolute Basophils (0.0-0.2) 10^3/uL VBG pH 7.31 7.25 L 7.26 L (7.31-7.41) VBG pCO2 61 H 72 H* 73 H* (41-51) mmHg VBG pO2 47 37 42 mmHg VBG HCO3 31 H 32 H 33 H (23-28) mmol/L VBG Total CO2 28 29 30 H (24-29) mmol/L VBG O2 Saturation 83 65 74 % VBG Base Excess 4 H 4 H 5 H (-2-3) mmol/L Sodium (136-145) mmol/L Potassium (3.5-5.1) mmol/L Chloride (98-107) mmol/L Carbon Dioxide (20.0-31.0) mmol/L Anion Gap (3-11) mmol/L BUN (9-23) mg/dL Creatinine (0.55-1.02) mg/dL Est GFR (CKD-EPI 2020) (mL/min/1.73m2) Glucose (74-106) mg/dL Calcium (8.3-10.6) mg/dL Magnesium (1.6-2.6) mg/dL Troponin I 17 (<35) ng/L NT-Pro-B Natriuret Pep (<300) pg/mL COVID-19 Source SARS-CoV-2 (PCR) (Negative) Influenza Type A (PCR) (Negative) Influenza Type B (PCR) (Negative) RSV (PCR) (Negative) 10/27/25 10/27/25 Range/Units 06:40 06:15 WBC 7.44 (4.4-10.8) 10^3/uL RBC 4.24 (3.93-5.22) 10^6/uL Hgb 13.3 (11.2-15.7) g/dL Hct 41.2 (36.0-46.0) % MCV 97 H (80-95) fL MCH 31.4 (27.0-33.0) pg MCHC 32.3 (32.0-36.0) % RDW 13.4 (11.7-14.6) % Plt Count 207 (130-400) 10^3/uL MPV 8.8 (8.0-11.0) fL Immature Gran % 0.4 % Neutrophils % 55.3 % Lymphocytes % 19.8 % Monocytes % 7.7 % Eosinophils % 16.4 % Basophils % 0.4 % Nucleated RBC % 0.0 (0.0-0.3) % Absolute Neutrophils 4.12 (1.2-6.7) 10^3/uL Absolute Lymphocytes 1.47 (1.2-3.4) 10^3/uL Absolute Monocytes 0.57 (0.1-0.8) 10^3/uL Absolute Eosinophils 1.22 H (0.0-0.7) 10^3/uL Absolute Basophils 0.03 (0.0-0.2) 10^3/uL VBG pH 7.27 L (7.31-7.41) VBG pCO2 69 H* (41-51) mmHg VBG pO2 98 mmHg VBG HCO3 32 H (23-28) mmol/L VBG Total CO2 29 (24-29) mmol/L VBG O2 Saturation 98 % VBG Base Excess 5 H (-2-3) mmol/L Sodium 143 (136-145) mmol/L Potassium 4.3 (3.5-5.1) mmol/L Chloride 105 (98-107) mmol/L Carbon Dioxide 33.6 H (20.0-31.0) mmol/L Anion Gap 4.4 (3-11) mmol/L BUN 11 (9-23) mg/dL Creatinine 0.69 (0.55-1.02) mg/dL Est GFR (CKD-EPI 2020) 86.54 (mL/min/1.73m2) Glucose 87 (74-106) mg/dL Calcium 8.7 (8.3-10.6) mg/dL Magnesium 2.1 (1.6-2.6) mg/dL Troponin I 13 (<35) ng/L NT-Pro-B Natriuret Pep 69 (<300) pg/mL COVID-19 Source Nasopharynx SARS-CoV-2 (PCR) Negative (Negative) Influenza Type A (PCR) Negative (Negative) Influenza Type B (PCR) Negative (Negative) RSV (PCR) Negative (Negative) Intake and Output - 24 Hour Total 10/27/25 06:03 thru 10/27/25 14:26 Intake Total 600 Balance 600 Weight 123.1 kg Intake: IV 600 Falls Risk Assessment History of Falls No History 10/27/25 06:15 Contributing Factors No Factors,Unstable 10/27/25 06:15 Ambulatory Aids Independent 10/27/25 06:15 Tubes/Lines W/no contributing factors 10/27/25 06:15 Gait Evaluation No gait disturbance 10/27/25 06:15 Cognition No cognitive impairment 10/27/25 06:15 Fall Total Score 13 10/27/25 06:15 Level of Risk Standard/Low Risk 10/27/25 06:15 Problems (Last Reviewed 10/18/25 @ 12:52 by Gerardo Talavera MD) COPD with acute exacerbation (Acute) Acute respiratory failure with hypoxia and hypercarbia (Acute) Attestation Statement: By documenting the first initial, last name, and credentials of the reporting nurse below, both parties acknowledge that all relevant information regarding the patient handoff has been communicated, and that all questions have been addressed to ensure continuity and safety of care. Additional Patient Information/Comments: COPD - lives w daughter, feeling bad a few days. Solumedrol and 2 duo nebs given, 500 bolus NS and Doxycycline given. BiPap fi02 21%. Very tired but improving on BiPap. Troponins neg. BNP 69. Chest xray no infiltrates. #20 RAC inserted with ultrasound. Obese, difficult to keep her upright. No void yet. Has not gotten up. Report Received From: [place] YOUSIF RN
[2025-10-27] MEDS: Furosemide 20 MG/2 ML VIAL IVP (18:19)
[2025-10-27] MEDS: Normal Saline Flush 10 ML SYR (18:22)
[2025-10-27] MEDS: Miconazole 2% Topical Powder 85 GM BTL (18:22)
[2025-10-27] MEDS: Apixaban 5 MG TAB PO (20:26)
[2025-10-27] MEDS: guaiFENesin 600 MG TABCR PO (20:27)
[2025-10-28] VITALS (82 sets, daily range): BP systolic 89–145; BP diastolic 56–89; PULSE 65–111; RESP 10–31; TEMP 36.3–36.9; O2SAT 86–97
[2025-10-28] MEDS: Albuterol/Ipratropium 3 ML UPD VIAL UPD ×4 (03:26→19:56)
[2025-10-28 06:09] LABS: Abs Immature Grans 0.03 10^3/uL (0.0-0.06); HCT 35.4 % (36.0-46.0); HGB 11.2 g/dL (11.2-15.7); Immature Grans % 0.5 %; MCH 30.9 pg (27.0-33.0); MCHC 31.6 % (32.0-36.0); MCV 98 fL (80-95); MPV 9.1 fL (8.0-11.0); Platelet Count 190 10^3/uL (130-400); RBC 3.63 10^6/uL (3.93-5.22); RDW 13.2 % (11.7-14.6); RDW-SD 47.5 fL; WBC 6.55 10^3/uL (4.4-10.8)
[2025-10-28 06:39] LABS: ALT 9 U/L (10-49); AST 11 U/L (<34); Albumin 3.4 g/dL (3.2-5.0); Alkaline Phosphatase 61 U/L (46-116); Anion Gap 3.7 mmol/L (3-11); BUN 17 mg/dL (9-23); Bilirubin, Total 0.30 mg/dL (0.2-1.2); CO2 34.3 mmol/L (20.0-31.0); Calcium 8.2 mg/dL (8.3-10.6); Chloride 106 mmol/L (98-107); Glucose 111 mg/dL (74-106); Potassium 4.3 mmol/L (3.5-5.1); Sodium 144 mmol/L (136-145); Total Protein 5.5 g/dL (5.7-8.2)
[2025-10-28 06:43] LABS: Magnesium 2.1 mg/dL (1.6-2.6)
--- NOTE | 2025-10-28 07:41 | INITIAL_ITS ---
Date of service: 10/28/25 Time of Service: 07:42 Care Management Initial Assmt Initial Assessment Reason for Hospitalization: COPD exacerbation Functional Status/Living Situation Patient Presentation: Carmen presented to the ED early yesterday morning with c/o increasing shortness of breath over the last 2 days. This is her 4th ED visit, and 3rd admission, in the last 30 days. Last admission she was sent home with a nebulizer. She did not have any home health services. EMS found her hypoxic in the 70s. EKG and CXR did not find any acute changes. In the ED she required Cpap, duonebs, steroids and 500ml bolus. Carmen is presently staying in [facility] with her daughter, Kaya. She has her own apartment, but her second daughter, Adalgisa is staying there with her 2yo and partner, so Carmen is staying with [place]. Carmen has home O2 and does use a 4WW. Carmen was sitting up in the bed when CM met with her today. She was very pleasant with CM. She still sounded wheezy, and said that she could feel it as well. As above, she has been staying at her daughter's, and is starting to think that there might be something in Kaya's home that is making her sick. Kaya's building is quite old, and she has had a lot of illness since staying there. Dr. Hays sent labs to r/o tick borne illness. Carmen does not have any home health services at this time, and she is unsure if she would like them. CM encouraged her to think about it. CM will very likely ask again, as PT is recommending PT. If Carmen accepts this service, CM would recommend that PT evaluate for [facility] Program. Town of Residence: [facility] Resides with: Child (Kaya) Significant Other/Family: Local (2 daughters are local - Kaya and Adalgisa) Natural Supports: daughters Employment Status: Unemployed Instrumental Activities of Daily Living (ADLs): Independent Medications Medication Management: No Issues/Barriers identified Physical Functioning/Mobility Assistive Device: 4WW and Home O2 Advance Directives Advance Directives: Do you have an Advance Directive: N , 16:[address] [facility]: N 02/05/21, 16:30 Date Asked 10/18/25 10/18/25, 12:43 AD Date Reviewed COLST On File at [facility] No 11/17/24, 16:08 COLST Date Scanned Code Status Resuscitation Status Full Code Portal Pt does not currently have a portal and education provided: Yes Insurance Coverage/Financial Issues Insurance: Medicaid [facility] Care Team Visit Care Team Role Provider Type Javier Tyler Primary Care Provider NON-[facility] STAFF PHYSICIAN InPatient Nico Cruz Other Providers OTHER Jaime Villa MD Emergency Provider [facility] STAFF PHYSICIAN Luis Hays MD Admit Provider [facility] STAFF PHYSICIAN Attending Provider Discharge Potential Discharge Needs: PCP F/U Appt Anticipated Barriers to Discharge: None Identified Patient/Family Education Needs: Review discharge instructions, discuss Ask Me Three Transportation: [facility] Transportation: Private vechicle Plan: Anticipate Carmen will return home once medically cleared. She will f/u with her PCP at an already scheduled hospital f/u on 11/09. PT has been recommended, but Carmen is unsure she wants this service. If she accepts, CM would request that Carmen be evaluated for [facility]. She will likely transport via [facility] private vehicle. She will follow up with her PCP and discharge plan of care. CM will continue to follow. Social Determinants of Health Screening Social Determinants of health last assessed in clinic: 10/28/25 Will the Patient Participate in the Screening?: Yes Do you worry about having a steady place to live?: no Problems where you live: no known problems In the past 12 months, have you had to go without electric, gas, oil or water in your home?: no 1. Within the past 12 months, we worried whether our food would run out before we got money to buy more.: Don't know/refused 2. Within the past 12 months, the food we bought just didn't last and we didn't have money to get more.: Don't know/refused Has lack of transportation kept you from medical appointments or from doing things needed for daily living?: no Has anyone in your life made you feel unsafe or unsupported?: no How hard is it for you to pay for the very basics like food, housing, medical care, and heating? Would you say it is:: Not hard at all Do you want help finding or keeping work or a job?: I do not need or want help If for any reason you need help with day-to-day activities such as bathing, preparing meals, shopping, managing finances, etc., do you get the help you need?: I don?t need any help How often do you feel lonely or isolated from those around you?: Rarely Do you speak a language other than Kiswahili at home?: No Does the patient want assistance with any of the above?: No Health Related Social Needs Health related social needs: feeling lonely/isolated (Z60.8) PFSH All Active Problems (Updated 10/27/25 @ 18:48 by Luis Hays MD) COPD with acute exacerbation (Acute) Acute respiratory failure with hypoxia and hypercarbia (Acute) COPD exacerbation (Acute) Chronic hypoxic respiratory failure, on home oxygen therapy (Acute) Acute hypoxemic respiratory failure (Acute) Cellulitis (Acute) Hx of custodial use of blood thinners (Acute) Obesity (Chronic) Atrial flutter, paroxysmal (Acute) Back pain (Acute) Venous stasis dermatitis (Chronic) Smoking (Acute) Hypertension (Chronic) Vitamin D deficiency (Acute) Dysuria (Acute) Lymphedema (Acute) Screening for colon cancer (Acute) Edema of both lower extremities (Acute) Multifocal pneumonia (Acute) Medical History Sleep apnea Essential hypertension Candidiasis of skin Osteoarthritis 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 Pain in thoracic spine Cellulitis of right lower limb Cardiomegaly Presbyopia Pulmonary embolism (~12/16/21) Morbid obesity 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, on suboxone Hypoxia Pneumonia due to 2019 novel coronavirus SARS-CoV-2 positive COPD (chronic obstructive pulmonary disease) Surgical History H/O total hysterectomy History of femur fracture hardware in femur Family History Mother Diabetes Father Hypertension Social History Smoking/Tobacco Use Status: Current every day Tobacco Type: e-cigarettes Counseling given: provider counseling and support medications Smoking risk assessment performed?: Yes Alcohol Intake: former Drug use: Current Sobriety Substance use type: former substance user Details: Currently on Suboxone Housing: apartment Do you feel safe at home: Yes Do you feel safe in your relationship?: Yes Readmission Within the Past 30 Days Yes or No: Yes Date of First Admission Date of 1st Admission: 10/18/25 Date of this Admission Date of Admission: 10/27/25 This admission was: Through ED Office Visit Since 1st Admission Have you seen your PCP in the office since discharge?: No Had an appointment Been Scheduled?: Yes Date of Scheduled Appointment: 11/09/25 Speicalist Appointments Have you seen any other specialist since your 1st Admission?: No ED visits How many ED visits in the past 12 months: 5 Anticipated HH Services Anticipated HH Services at Discharge [facility] Needed, PT (evaluate for [facility]) and RN Anticipated Date of Discharge: 10/29/25. Following Provider: ZARINA Michael.
[2025-10-28] MEDS: Furosemide 20 MG TAB 40 MG PO (07:49)
[2025-10-28] MEDS: Apixaban 5 MG TAB PO ×2 (07:49→21:13)
[2025-10-28] MEDS: Buprenorphine/Naloxone 8 mg/2 mg FILM 1 EACH SL (07:49)
[2025-10-28] MEDS: Doxycycline Hyclate 100 MG CAP PO ×2 (10:49→21:06)
--- NOTE | 2025-10-28 11:24 | PHACLINREV_ITS ---
Pharmacy Admission Review Admission Clinical Review Admission Pharmacy Review: COPD with acute exacerbation (Acute) Acute respiratory failure with hypoxia and hypercarbia (Acute) COPD exacerbation (Acute) Chronic hypoxic respiratory failure, on home oxygen therapy (Acute) Atrial flutter, paroxysmal (Acute) aspirin Allergy (Unknown, Verified 10/27/25 06:17) Other (See Comment) codeine Allergy (Unknown, Verified 10/27/25 06:17) Other (See Comment) Resuscitation Status Full Code Height 5 ft 5 in Weight 118.3 kg Pharmacy Admission Review Renal Dosing Renal Dosing: BUN 17 mg/dL (9-23) 10/28/25 05:37 Creatinine 0.68 mg/dL (0.55-1.02) 10/28/25 05:37 Medications needing adjustments: Reviewed (Scr=0.7; Crcl=77ml/min; no meds currently need adjustment) Anticoagulation Anticoagulation: Hgb 11.2 g/dL (11.2-15.7) D 10/28/25 05:37 Hct 35.4 % (36.0-46.0) L 10/28/25 05:37 Plt Count 190 10^3/uL (130-400) 10/28/25 05:37 Creatinine 0.68 mg/dL (0.55-1.02) 10/28/25 05:37 DVT Prophylaxis: Reviewed Medications: Apixaban Relevant Labs Relevant Labs: Sodium 144 mmol/L (136-145) 10/28/25 05:37 Potassium 4.3 mmol/L (3.5-5.1) 10/28/25 05:37 Chloride 106 mmol/L (98-107) 10/28/25 05:37 Magnesium 2.1 mg/dL (1.6-2.6) 10/28/25 05:37 Electrolytes, C-Reactive P, ESR: Reviewed (no interventions at this time) DM Control DM Control: Reviewed (am [id number]; no history of DM. Continue to monitor. ) Cardiac Review Cardiac Review: Troponin I 17 ng/L (<35) 10/27/25 07:49 NT-Pro-B Natriuret Pep 69 pg/mL (<300) 10/27/25 06:15 BP, HR, EF%: Reviewed (wh=166/67 hr=99; no intervention needed at this time) QTc Review QTc: Reviewed ([id number]) IV to PO Switch IV Medications: Reviewed (all current meds PO) Home Meds Home Med List reviewed: Reviewed Relevent Home Meds Not ordered & why?: Provider did not want to continue prednisone at this time; recommended to consider restarting azithromycin, and per provider's note plan to continue doxycycline for pending lyme panel- recommended to order doxycycline. Current Meds Current Medication Order Review: Reviewed Pharmacy Antibiotic Review Comments: no antibiotics at this time
[2025-10-28] MEDS: Ipratropium/Albuterol 4 GM 120 PUFF INH IH (12:02)
--- NOTE | 2025-10-28 12:53 | PT.INIE ---
Date of service: 10/28/25 Time of Service: 12:15 PT Notes Visit Reasons: respiratory failure Inpatient Physical Therapy Evaluation Certification Period:? From __10/28/25 ?? Through ____11/02/25___ I certify the need for these services as being medically necessary and skilled as furnished under this plan of treatment while under my care. Please sign and return within 14 days if you agree with the plan of care listed below.? Thank you for this referral! ? Referring Physician? Date Referring Doctor:? Luis Hays PT Orders: PT CONSULT for exacerbation of chronic condition Precautions: Fall risk, O2, HR Patient Profile/Admitting Diagnosis:? The patient is a 59 yo female adm on 10/27/25 with COPD exacerbation after 2 days of worsening shortness of breath. This is her 4th ED visit, and 3rd admission, in the last 30 days. She reports no recent illness. She reports that she has been taking her medications as directed. No chest pain, no abdominal pain, no N/V/D. EMS found her to have SpO2 in the 70's. In the ED she was tachycardic HR 107, tachypneic 30, hypertensive 178/131. EKG without acute changes. CXR without acute pathology. No leukocytosis. Negative troponins. CO2 elevated as before, 33.6. On arrival in the ED she was started on CPAP for ~6 hours and duonebs. She was also started on steroids and given a 500 ml fluid bolus.Tick/lyme panel sent. NICOLAS Finley reports <1 min episodes of aflutter captured on telemetry. Past Medical History: All Active Problems (Updated 10/27/25 @ 18:48 by Luis Hays MD) COPD with acute exacerbation (Acute) Acute respiratory failure with hypoxia and hypercarbia (Acute) COPD exacerbation (Acute) Chronic hypoxic respiratory failure, on home oxygen therapy (Acute) Acute hypoxemic respiratory failure (Acute) Cellulitis (Acute) Hx of intermission coordinator use of blood thinners (Acute) Obesity (Chronic) Atrial flutter, paroxysmal (Acute) Back pain (Acute) Venous stasis dermatitis (Chronic) Smoking (Acute) Hypertension (Chronic) Vitamin D deficiency (Acute) Dysuria (Acute) Lymphedema (Acute) Screening for colon cancer (Acute) Edema of both lower extremities (Acute) Multifocal pneumonia (Acute) Medical History Sleep apnea Essential hypertension Candidiasis of skin Osteoarthritis 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 Her daughter and 2 yo grandchild are staying with her. Normally takes the bus around town and shops using her 4 wheeled rolling walker. Has home O2 that she does not use on a regular bases except for recently during these attacks. Has a few steps to enter but normally does not have difficulty on the stairs. Has portable and large home O2 unit. Reports her large unit is not currently working and she has reached out the [employer] for assistance. She reports they need to requalify her for home O2. Subjective: I have been having these attacks since I fell at [employer] and hit my chest Objective: NICOLAS Valderrama assisted with equipment and monitoring throughout today's session Mental Status: Patient is alert and oriented. Impulsively moving, even when asking patient to wait one moment. Pain: No reports of pain. Vital Signs: on telemetry and constant O2 monitoring during session. O2 86% on 1L briefly, but mostly >90%, up to 94%. HR 80's at rest and increased to 110's during mobility on L1/min ROM/Strength: Upper extremities: able to move against gravity Lower extremities: able to move against gravity Sensation: No reports of numbness or tingling during today's session Soft tissue/edema: venous stasis observed on bilateral LE. Reports she has managed blisters from this in the past successfully. Bed Mobility: Supine to/from sit supervision Transfers: Sit to/from stand CGA with cuing to decrease velocity of movement Gait: Ambulated 80 feet with rolling walker with CGA from therapist and assist from RN for 1l/min O2 and monitors. Significant bilateral lateral sway with c/o dizziness mid walk. Increased HR with ambulation as above. Balance: good balance sitting on the EOB. fair to good in standing with wide base of support. [facility] AM-PAC 6 clicks Basic Mobility Inpatient Short Form: Raw Score:?18? CMS Score: 46.58% Informed Consent/Education:? Patient instructed in purpose of PT consult and plan of care and is agreeable Assessment:? Patient is a? 59 yo female adm on 10/27/25 with COPD exacerbation after 2 days of worsening shortness of breath.? Patient presents with pain, decreased strength, decreased functional mobility, decreased balance and difficulty with ambulation. The patient would benefit from skilled inpatient services to improve these impairments to maximize function and safety. Patient is assessed as:? Low 98576??complexity based on the following: History: overweight, recent hospitalizations Examination: see above Presentation: Stable and uncomplicated? Decision Making:? Low (0 history, 1-2 exam, stable/predictable, easy 20) Physical Therapy Goals: 1 week Able to mobilize in her room with supervision only with O2 sats> 90%, stable HR and no c/o dizziness. Able to perform sit to/from stand with supervision only. Able to 100 walk feet with rolling walker with supervision only with O2 sats> 90%, stable HR and no c/o dizziness.. Able to go up and down 2-3 steps with 1 rail with contact guard assist only with O2 sats> 90%, stable HR and no c/o dizziness. Independent with home exercise program Plan of Care/Treatment Plan: 1-2x/day, 7 days/week x 1 week. Plan of care has been reviewed with the BLIND [employer]AT STAPLING MACHINE OPERATOR providing the service under Physical Therapy direction. Initiate Physical Therapy intervention for strengthening, bed mobility, transfers, gait, stairs, balance training, use of assistive device. DISCHARGE RECOMMENDATIONS: HHPT, assure functioning home O2, assure able to use her walker upon return home Informed consent Prior to the start and throughout the course of the examination and treatment, patient was made aware of the specifics and purpose of the physical assessment and treatment procedures. Appropriate draping procedures were utilized to protect modesty where applicable. Billing Charges: Treatment Units Time Duration Manual Therapy(87185) Hands-on techniques to modulate pain increase joint range of motion reduce or eliminate soft tissue swelling, inflammation, or restriction facilitate relaxation and improve contractile and non-contractile tissue extensibility ? ? Therapeutic Procedures (51204) Instruction in therapeutic exercises to develop strength and endurance, range of motion and flexibility. HEP instruction and review: Provided skilled instruction in proper exercise performance: Provided skilled manual cues to facilitate proper muscle recruitment and/or movement pattern Neurological Re-Education(89580) To improve balance, coordination, kinesthetic and proprioceptive sensations. ? ? Ultrasound(53759) To promote healing. ? ? Gait Training(86656) ? ? Therapeutic Activity(70421) Instruction in dynamic activities with one on one patient contact by the provider to improve functional performance as follows: ?1 13 ? Self Care Training(36471) ? ? E-Stim (Attended)(20398) ? ? Low IE(92271) 1 25 Mod IE(84516) ? ? High IE(81464) ? ? Time Coded Treatment Time ? 13 Total Treatment Time ? 38
--- NOTE | 2025-10-28 15:31 | W.PM.PROGNOT ---
Date of Service Date of service: 10/28/25 Time of Service: 08:00 Assessment and Plan Assessment and plan (1) COPD exacerbation: Status: Acute Assessment and plan: Initially patient required CPAP, off after about 6 hours Will continue doxycycline. Tick/lyme panel sent. Hold steroids. Continue scheduled duonebs overnight per discussion with RT Downgraded from ICU to floor Echocardiogram October 29 (2) Chronic hypoxic respiratory failure, on home oxygen therapy: Status: Acute Assessment and plan: Home O2 used PRN (3) Atrial flutter, paroxysmal: Status: Acute Assessment and plan: Continue home apixaban Continue home furosemide Last echo 2022, will repeat (4) Drug abuse in remission: Assessment and plan: Continue MAT Subjective Subjective Interval history since last seen: Ms. Beyer is feeling better today. She is ambulating with PT and on her baseline O2. Exam Narrative Exam Narrative: General: This is a pleasant woman in no distress HEENT: Normocephalic, atraumatic CV: RRR Resp: Diffuse soft expiratory wheeze, much improved Abd: soft, NTND MSK: voluntary motion x4 Neuro: awake, alert, no focal deficits Objective Last Vital Signs Temp 36.8 C 10/28/25 12:30 Pulse 95 H 10/28/25 14:48 Resp 18 10/28/25 14:48 BP 130/80 10/28/25 12:46 Pulse Ox 93 10/28/25 14:39 Laboratory Results - last 24 hr 10/28/25 05:37 WBC 6.55 RBC 3.63 L Hgb 11.2 D Hct 35.4 L MCV 98 H MCH 30.9 MCHC 31.6 L RDW 13.2 Plt Count 190 MPV 9.1 Immature Gran % 0.5 Neutrophils % 78.0 Lymphocytes % 12.1 Monocytes % 8.4 Eosinophils % 0.8 Basophils % 0.2 Nucleated RBC % 0.0 Absolute Neutrophils 5.12 Absolute Lymphocytes 0.79 L Absolute Monocytes 0.55 Absolute Eosinophils 0.05 Absolute Basophils 0.01 Sodium 144 Potassium 4.3 Chloride 106 Carbon Dioxide 34.3 H Anion Gap 3.7 BUN 17 Creatinine 0.68 Est GFR (CKD-EPI 2020) 88.00 Glucose 111 H Calcium 8.2 L Magnesium 2.1 Total Bilirubin 0.30 AST 11 ALT 9 L Alkaline Phosphatase 61 Total Protein 5.5 L Albumin 3.4 VTE Prohylaxis Risk Level: Moderate/High Risk Contraindications: None Prophylaxis: Patient anticoagulated Time Spent with Patient Time Spent with Patient: 25-34 minutes Time was spent: preparing to see the patient(eg.review tests), obtaining and/or reviewing separately otained hiistory, ordering medications,tests, procedures, referring, communicating with other health long term care social worker, indepentently interpreting results, counseling the patient and care coordination
--- NOTE | 2025-10-28 17:43 | NUR.NOTE ---
Nursing Note: Report received from NICOLAS Khan. Patient was transferred to M/S room via wheelchair in stable condition. Patient is oriented, no s/s of cardiac distress, SOB w/ exertion noted, patient on 1L of O2 + biggs in place draining appropriately. Education given aviation warfare systems operator mott and how/when to use it. Bed alarm on.
--- NOTE | 2025-10-28 20:31 | RESPIRATORY ---
Patient prescribed to wear 1L of oxygen @ baseline. [facility].
[2025-10-28] MEDS: Normal Saline Flush 10 ML SYR IVP (21:14)
[2025-10-29] VITALS (15 sets, daily range): BP systolic 115–139; BP diastolic 70–91; PULSE 69–98; RESP 15–28; TEMP 36.1–36.7; O2SAT 89–97
[2025-10-29] MEDS: Albuterol/Ipratropium 3 ML UPD VIAL UPD (01:22)
[2025-10-29] MEDS: Ipratropium/Albuterol 4 GM 120 PUFF INH IH ×4 (05:38→19:45)
[2025-10-29] MEDS: MORPHine 2 MG/ML SYR 1 MG IVP (05:49)
--- NOTE | 2025-10-29 06:07 | PUCON_ITS ---
General Date Of Service Date of service: 10/29/25 Time of Service: 07:30 Requesting physician: Luis Hays Recommendations: Assessment: 1. Asthma/COPD exacerbation - severe wheezing on exam. 2. Severe persistent asthma - Prior PFT's more consistent with asthma. Peripheral eos as high as 1220/mcL in the past month 3. Chronic hypoxemic respiratory failure - due to asthma/COPD 4. Hx pulmonary embolism - on eliquis. Dx 11/2021. Diagnosed around the time of an acute COVID-19 infection - likely provoked episode. Plan: - recommend prednisone 60 mg BID - continue doxycycline - scheduled bronchodilators - will need to discharge with a high dose ICS/LABA/LAMA inhaler (Trelegy 200 daily or breztri BID). May benefit from biologics (ie Dupixent) given her recurrent exacerbations. Assessment and Plan Assessment and plan (1) Acute respiratory failure with hypoxia and hypercarbia: Status: Acute (2) COPD exacerbation: Status: Acute (3) Smoking: Status: Acute (4) Hx of chcf use of blood thinners: Status: Acute History of Present Illness Narrative: Patient is a 59 yo with a history of COPD, chronic hypoxemic respiratory failure, and PAF who presented to the ED on 10/27 for worsening dyspnea. She has had multiple admissions over the past few months, for COPD exacerbation. EMS was called to her house and found her hypoxic. CXR in the ED was umremarkable. Prior CTa chest on 10/04/25 was negative for acute PE. She was started on systemic steroids upon admission. She reports using anoro and PRn albuterol at home. Does admit to medication non-adherence at times. Dyspnea has increased today. Has a cough with occasional sputum production. No hemoptysis. Currently on 2 L NC. She quit smoking tobacco several years ago. Uses a vapor cigarette daily. ROS: 10 pt ROS negative except as above. Sx: smoked 0.5 ppd x 10 years. Quit ~2022 PFSH All Active Problems (Updated 10/29/25 @ 06:17 by Lonny Marshall MD) Acute respiratory failure with hypoxia and hypercarbia (Acute) COPD exacerbation (Acute) Chronic hypoxic respiratory failure, on home oxygen therapy (Acute) Acute hypoxemic respiratory failure (Acute) Cellulitis (Acute) Hx of chcf use of blood thinners (Acute) Obesity (Chronic) Atrial flutter, paroxysmal (Acute) Back pain (Acute) Venous stasis dermatitis (Chronic) Smoking (Acute) Hypertension (Chronic) Vitamin D deficiency (Acute) Dysuria (Acute) Lymphedema (Acute) Screening for colon cancer (Acute) Edema of both lower extremities (Acute) Medical History (Updated 10/29/25 @ 06:17 by Lonny Marshall MD) COPD with acute exacerbation Sleep apnea Essential hypertension Candidiasis of skin Osteoarthritis 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 Pain in thoracic spine Cellulitis of right lower limb Cardiomegaly Presbyopia Pulmonary embolism (~12/16/21) Morbid obesity 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, on suboxone Hypoxia Pneumonia due to 2019 novel coronavirus SARS-CoV-2 positive COPD (chronic obstructive pulmonary disease) Surgical History H/O total hysterectomy History of femur fracture hardware in femur Family History Mother Diabetes Father Hypertension Social History Smoking/Tobacco Use Status: Current every day Tobacco Type: e-cigarettes Counseling given: provider counseling and support medications Smoking risk assessment performed?: Yes Alcohol Intake: former Drug use: Current Sobriety Substance use type: former substance user Details: Currently on Suboxone Housing: apartment Do you feel safe at home: Yes Do you feel safe in your relationship?: Yes Visit Medication and Allergies Active Medications Generic Name Dose Route Start Last Admin Trade Name Freq PRN Reason Stop Dose Admin Acetaminophen 650 mg 10/27/25 15:32 Acetaminophen 325 Mg Tab PO Q6H PRN PRN Pain Albuterol/Ipratropium 1 puff 10/27/25 16:00 10/29/25 05:38 Ipratropium/Albuterol 4 Gm 120 Puff Inh IH 1 puff QID REFUGIO Administration Albuterol/Ipratropium 3 ml 10/27/25 21:00 10/29/25 01:22 Albuterol/Ipratropium 3 Ml Upd Vial UPD 3 ml Q6H REFUGIO Administration Apixaban 5 mg 10/27/25 20:00 10/28/25 21:13 Apixaban 5 Mg Tab PO 5 mg BID REFUGIO Administration Buprenorphine/Naloxone 1 each 10/28/25 08:30 10/28/25 07:49 Buprenorphine/Naloxone 8 Mg/2 Mg Film SL 1 each DAILY REFUGIO Administration Doxycycline Hyclate 100 mg 10/28/25 10:00 10/28/25 21:06 Doxycycline Hyclate 100 Mg Cap PO 100 mg Q12H REFUGIO Administration Furosemide 40 mg 10/28/25 08:30 10/28/25 07:49 Furosemide 20 Mg Tab PO 40 mg DAILY REFUGIO Administration Guaifenesin 600 mg 10/27/25 20:00 10/28/25 21:17 Guaifenesin 600 Mg Tabcr PO Not Given BID REFUGIO Pt's Own Med ( 2 each 10/28/25 08:30 10/28/25 15:49 Annora Ellipta 62.5- IH Not Given ) DAILY REFUGIO Polyethylene Glycol 17 gm 10/27/25 12:04 Polyethylene Glycol 3350 17 Gm Packet PO DAILY PRN PRN Constipation Sodium Chloride 0 ml 10/28/25 20:00 10/28/25 21:14 Normal Saline Flush 10 Ml Syr IVP 10 ml BID REFUGIO Administration Allergies aspirin Allergy (Unknown, Verified 10/27/25 06:17) Other (See Comment) codeine Allergy (Unknown, Verified 10/27/25 06:17) Other (See Comment) Exam Narrative Exam Narrative: General: alert, no acute distress Head: normocephalic ENT: no stridor, trachea midline CV: normal rate, regular rhythm Respiratory: bilateral expiratory wheezing, no crackles, no rhonchi, + prolonged expiration GI: abd soft, non-tender, non-distended Skin: no rashes Extremities: trace leg edema, no digital clubbing Psych: normal affect Results Last Vital Signs Temp 36.3 C L 10/29/25 03:38 Pulse 98 H 10/29/25 05:33 Resp 28 H 10/29/25 05:33 BP 132/70 10/29/25 03:38 Pulse Ox 94 10/29/25 05:33 Labs 10/29/25 05:50 10/29/25 05:50 Labs: Laboratory Results - last 24 hr 10/28/25 05:37 WBC 6.55 RBC 3.63 L Hgb 11.2 D Hct 35.4 L MCV 98 H MCH 30.9 MCHC 31.6 L RDW 13.2 Plt Count 190 MPV 9.1 Immature Gran % 0.5 Neutrophils % 78.0 Lymphocytes % 12.1 Monocytes % 8.4 Eosinophils % 0.8 Basophils % 0.2 Nucleated RBC % 0.0 Absolute Neutrophils 5.12 Absolute Lymphocytes 0.79 L Absolute Monocytes 0.55 Absolute Eosinophils 0.05 Absolute Basophils 0.01 Sodium 144 Potassium 4.3 Chloride 106 Carbon Dioxide 34.3 H Anion Gap 3.7 BUN 17 Creatinine 0.68 Est GFR (CKD-EPI 2020) 88.00 Glucose 111 H Calcium 8.2 L Magnesium 2.1 Total Bilirubin 0.30 AST 11 ALT 9 L Alkaline Phosphatase 61 Total Protein 5.5 L Albumin 3.4 Imaging Chest x-ray: report reviewed and image reviewed CT scan - chest: report reviewed and image reviewed Additional studies: PFT: personally reviewed 05/2022: ratio 65, FEV1 56, FVC 63, TLC 94, DLCO 83, positive BD response
[2025-10-29 06:43] LABS: Abs Immature Grans 0.02 10^3/uL (0.0-0.06); HCT 42.4 % (36.0-46.0); HGB 13.4 g/dL (11.2-15.7); Immature Grans % 0.3 %; MCH 31.4 pg (27.0-33.0); MCHC 31.6 % (32.0-36.0); MCV 99 fL (80-95); MPV 9.1 fL (8.0-11.0); Platelet Count 234 10^3/uL (130-400); RBC 4.27 10^6/uL (3.93-5.22); RDW 13.5 % (11.7-14.6); RDW-SD 49.1 fL; WBC 6.09 10^3/uL (4.4-10.8)
[2025-10-29 07:08] LABS: ALT 10 U/L (10-49); AST 13 U/L (<34); Albumin 3.8 g/dL (3.2-5.0); Alkaline Phosphatase 70 U/L (46-116); Anion Gap 7.2 mmol/L (3-11); BUN 19 mg/dL (9-23); Bilirubin, Total 0.40 mg/dL (0.2-1.2); CO2 32.8 mmol/L (20.0-31.0); Calcium 8.6 mg/dL (8.3-10.6); Chloride 105 mmol/L (98-107); Glucose 112 mg/dL (74-106); Potassium 4.1 mmol/L (3.5-5.1); Sodium 145 mmol/L (136-145); Total Protein 6.4 g/dL (5.7-8.2)
[2025-10-29] MEDS: [UNRECOGNIZED DRUG - OTHER] 2 EACH IH (09:17)
[2025-10-29] MEDS: Albuterol 2.5 MG/3 ML INH SOLN VIAL UPD (09:21)
--- NOTE | 2025-10-29 09:22 | PDOC.CMDIS ---
Date of service: 10/29/25 Time of Service: 09:22 LACE Index Scoring Tool Questions: Length of Stay (in days): 2 Was the patient admitted via the E.D.?: Yes Comorbidities: Chronic Pulmonary Disease E.D. Visits: 5 Answers: Total Score: 11 Risk of Readmission: High Risk Care Management Discharge Plan Reason for Hospitalization: Respiratory failure Discharge Plan: Carmen will return home with new HH PT to assess for the Better Breather's program/RN/FAMILY DEVELOPMENT EXTENSION SPECIALIST. She will f/u with her PCP at an already scheduled hospital f/u on 11/09. She will follow up with her community providers and discharge plan of care. She will transport via [facility] private vehicle. Patient/Family Education Needs: Review of discharge instruction, activity, limitations, and plan of care. Discuss ask me three Services Needed at Discharge: Home Health Care Services SDOH Health Related Social Needs: Health related social needs lonely/isolated
[2025-10-29] MEDS: predniSONE 20 MG TAB 60 MG PO ×2 (09:36→19:55)
[2025-10-29] MEDS: Furosemide 20 MG TAB 40 MG PO (09:37)
[2025-10-29] MEDS: Apixaban 5 MG TAB PO ×2 (09:37→19:55)
[2025-10-29] MEDS: Buprenorphine/Naloxone 8 mg/2 mg FILM 1 EACH SL (09:37)
[2025-10-29] MEDS: Doxycycline Hyclate 100 MG CAP PO ×2 (09:37→21:33)
[2025-10-29] MEDS: Normal Saline Flush 10 ML SYR IVP ×2 (09:53→19:56)
--- NOTE | 2025-10-29 09:57 | PTTR_ITS ---
PT Notes Visit Reasons: Respiratory Failure Physical Therapy Inpatient Treatment Note Date: 10/29/2025 Precautions: Fall. Standard. Activity as tolerated. SUBJECTIVE: Upset about the alarms in her bed, did not want PT to put on chair alarm. Daughter Kaya said that her mom appeared a bit spicy this morning, felt that the morphine may have something to do with it. In the PM, patient was apologetic about how she was this morning and was willing to walk using the 4WW. Complained of minimal shortness of breath that resolved with rest. OBJECTIVE: General Observation: Patient sitting at edge of bed. O2 NC in place with 1L of O2/min, however tubing was not connected. High BMI. B legs mildly red and with Grade 3 pitting edema. Mental Status: Mildly agitated about use of alarms in her bed and on her chair. Recognized her daughter and her daughter's spouse when they came in the middle of her session. Pain: None reported Vitals: 92%-94% on 1 L of O2 via NC Vitals in the PM: SaO2 of 94%-95% on 1 L/min BED MOBILITY/TRANSFERS: Minimal cueing provided for use of B hands as needed for support, movement sequence, AD management, and posture to reduce fall risk and minimize pain report Rolling supervision Supine to sit supervision Sit to supine supervision Sit to stand stand by assist without device Stand to sit stand by assist without device Bed to chair stand by assist without device Chair to bed stand by assist without device GAIT: Ambulated 40 feet without an assistive device on 1L/min O2 via NC with oxygen saturation going up to 94% after activity with moderate shortness of breath. HR at 94 bpm. No lateral sway seen, no LOB. In the PM, patient covered a distance fo 220 feet with 4WW with 1L/min of O2 with just stand by assist with minimal shortness of breath that resolved with rest. STAIRS: Refused to do stairs stating that she does fine with them, will revisit offer to do this in the afternoon session. Balance: Static sitting Normal Dynamic sitting Fair Static standing Good Dynamic standing Fair Assessment: Patient demonstrates better ability to perform mobility tasks without the use of AD but continues to be short of breath and so required frequent rests. With use of 4WW, patient was able to cover more distance and with quick resolution of SOB upon activity cessation. Plan of Care/Treatment Plan: 1-2x/day, 7 days/week x 1 week Plan of care has been reviewed with the DIRECTOR REGULATORY AGENCY providing the service under Physical Therapy direction. Continue with Physical Therapy intervention for strengthening, bed mobility, transfers, gait, stairs, balance training, use of assistive device. DISCHARGE RECOMMENDATIONS: PT for continued functional mobility retraining using most appropriate AD for longer distances. TREATMENT CODE/TIME: Session1-- 03441 x 26 minutes for 2 units (9:57-10:23). Session 2--63069 x 15 minutes for 1 unit (14:27-14:42).
--- NOTE | 2025-10-29 14:37 | PGE_ITS ---
Date of Service Date of service: 10/29/25 Time of Service: 14:38 Assessment and Plan Assessment and plan (1) COPD exacerbation: Status: Acute Assessment and plan: Initially patient required CPAP, off after about 6 hours, to floor status 10/28 Will continue doxycycline. Appreciate pulm input, added steroids. She may benefit from dupixant director long term care given high eosinophilia. Also discussed triggers (vaping, cat) Continue scheduled albuterol ipratropium inhaler and prn albuterol nebs per discussion with RT (2) Chronic hypoxic respiratory failure, on home oxygen therapy: Status: Acute Assessment and plan: Home O2 used PRN echocardiogram 10/29 showed preserved LVEF but some diastolic dysfunction. Looking at IVC does not appear fluid overloaded, continue home dose of furosemide and treat asthma/COPD as above. (3) Atrial flutter, paroxysmal: Status: Acute Assessment and plan: Continue home apixaban Continue home furosemide (4) Drug abuse in remission: Assessment and plan: Continue MAT, denies recent use. Discharge Planning Discharge Planning: home when respiratory status more stable, 10/30- Subjective Subjective Patient reports: tolerating a regular diet and voiding w/o difficulty; denies nausea, vomiting or fever Interval history since last seen: Events: seen by Dr. Marshall, recommended starting high dose steroids She feels okay now. Swelling in legs is a little better. She is still quite SOB, but better than the middle of the night. Morphine helped. Albuterol also helps. Per daughter she was vaping heavily at home. There is a cat at their home, but no other clear asthma triggers. Exam Narrative Exam Narrative: General: This is a pleasant woman in no distress CV: RRR Resp: Diffuse inspiratory and expiratory wheeze, poor air movement, no rales Abd: soft, NTND MSK: voluntary motion x4 Neuro: awake, alert, no focal deficits Objective Last Vital Signs Temp 36.1 C L 10/29/25 10:59 Pulse 69 10/29/25 10:59 Resp 16 10/29/25 10:59 BP 127/88 10/29/25 10:59 Pulse Ox 93 10/29/25 10:59 Laboratory Results - last 24 hr 10/29/25 05:50 WBC 6.09 RBC 4.27 Hgb 13.4 D Hct 42.4 MCV 99 H MCH 31.4 MCHC 31.6 L RDW 13.5 Plt Count 234 MPV 9.1 Immature Gran % 0.3 Neutrophils % 59.8 Lymphocytes % 23.8 Monocytes % 5.7 Eosinophils % 9.7 Basophils % 0.7 Nucleated RBC % 0.0 Absolute Neutrophils 3.64 Absolute Lymphocytes 1.45 Absolute Monocytes 0.35 Absolute Eosinophils 0.59 Absolute Basophils 0.04 Sodium 145 Potassium 4.1 Chloride 105 Carbon Dioxide 32.8 H Anion Gap 7.2 BUN 19 Creatinine 0.80 Est GFR (CKD-EPI 2020) 72.95 Glucose 112 H Calcium 8.6 Total Bilirubin 0.40 AST 13 ALT 10 Alkaline Phosphatase 70 Total Protein 6.4 Albumin 3.8 VTE Prohylaxis Risk Level: Moderate/High Risk Contraindications: None Prophylaxis: Patient anticoagulated (apixaban) Time Spent with Patient Time Spent with Patient: 35-49 minutes Time was spent: preparing to see the patient(eg.review tests), obtaining and/or reviewing separately otained hiistory, ordering medications,tests, procedures, referring, communicating with other health resident care assistant, indepentently interpreting results, counseling the patient and care coordination
--- NOTE | 2025-10-29 15:37 | CMPROGNOTE_ITS ---
Date of service: 10/29/25 Time of Service: 15:37 Care Management Progress Note Progress Note Text Progress Note Text: Carmen was sitting up in bed and awake when CM met with her. She was pleasant and engaged appropriately in conversation. Carmen reports that she is feeling better today. She stated that she experienced a few episodes overnight and earlier in the day during which she felt unable to breathe. She remains on 2L O2 via NC. Carmen reports that she has oxygen at home, describing both a stationary tank and a portable tank, which she uses as needed. Per report, she is scheduled for an echocardiogram and a pulmonology evaluation today. Per RN, she received a dose of morphine overnight to help manage air hunger. Carmen is agreeable to home health services upon discharge. CM will continue to follow. Discharge Potential Discharge Needs: PCP F/U Appt Anticipated Barriers to Discharge: Medical Status Patient/Family Education Needs: Review discharge instructions, discuss Ask Me Three Transportation: Private vehicle Plan: Anticipate Carmen will return home with new [facility] PT to be be evaluated for Better Breather's/OT/RN/MACHINE STUFFER once medically cleared. She will f/u with her PCP at an already scheduled hospital f/u on 11/09. She will likely transport via [facility] private vehicle. She will follow up with her community providers and discharge plan of care. CM will continue to follow. Social Determinants of Health Screening Social Determinants of health last assessed in clinic: 10/29/25 Will the Patient Participate in the Screening?: Yes Do you worry about having a steady place to live?: no Problems where you live: no known problems In the past 12 months, have you had to go without electric, gas, oil or water in your home?: no 1. Within the past 12 months, we worried whether our food would run out before we got money to buy more.: Don't know/refused 2. Within the past 12 months, the food we bought just didn't last and we didn't have money to get more.: Don't know/refused Has lack of transportation kept you from medical appointments or from doing things needed for daily living?: no Has anyone in your life made you feel unsafe or unsupported?: no How hard is it for you to pay for the very basics like food, housing, medical care, and heating? Would you say it is:: Not hard at all Do you want help finding or keeping work or a job?: I do not need or want help If for any reason you need help with day-to-day activities such as bathing, preparing meals, shopping, managing finances, etc., do you get the help you need?: I don?t need any help How often do you feel lonely or isolated from those around you?: Rarely Do you speak a language other than Japanese at home?: No Does the patient want assistance with any of the above?: No Health Related Social Needs Health related social needs: feeling lonely/isolated (Z60.8)
[2025-10-30] VITALS (7 sets, daily range): BP systolic 123–150; BP diastolic 81–99; PULSE 63–91; RESP 16–17; TEMP 35.9–36.8; O2SAT 91–94
--- NOTE | 2025-10-30 06:34 | W.PULMPROG ---
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 Asthma/COPD exacerbation - improved 2. Severe persistent asthma - Prior PFT's more suggestive of asthma. Peripheral eos as high as 1220/mcL in the past month 3. Acute on chronic hypoxemic respiratory failure - due to asthma/COPD exacerbation. Currently on 1 L O2 4. Hx pulmonary embolism - on eliquis. Dx 11/2021. Diagnosed around the time of an acute COVID-19 infection - likely provoked episode. 5. Hx Afib/flutter - on eliquis Plan: - change to prednisone 60 mg daily today. Plan for 5 more days of steroids - continue doxycycline for 7 days total - continue scheduled bronchodilators - will need to discharge with a high dose ICS/LABA/LAMA inhaler (Trelegy 200 daily or breztri BID). May benefit from biologics (ie Dupixent) given her recurrent exacerbations. - check ABG this AM to assess for chronic hypercapnia - will need repeat PFT's as outpatient Discussed with Dr. Bangura Subjective Note Note: Patient is a 59 yo with a history of COPD, chronic hypoxemic respiratory failure, and PAF who presented to the ED on 10/27 for worsening dyspnea. She has had multiple admissions over the past few months, for COPD exacerbation. EMS was called to her house and found her hypoxic. CXR in the ED was umremarkable. Prior CTa chest on 10/04/25 was negative for acute PE. She was started on systemic steroids upon admission. She reports using anoro and PRN albuterol at home. Does admit to medication non-adherence at times. She quit smoking tobacco several years ago. Uses a vapor cigarette daily. Dyspnea has improved. Has a cough with minimal sputum production. No hemoptysis. No chest pain. Currently on 1 L O2 ROS: 6 pt ROS negative except as above. Sx: smoked 0.5 ppd x 10 years. Quit ~2022 Exam Narrative Exam Narrative: General: alert, no acute distress Head: normocephalic ENT: no stridor, trachea midline CV: normal rate, regular rhythm Respiratory: mild expiratory wheezing, no crackles, no rhonchi, no prolonged expiration GI: abd soft, non-tender, non-distended Skin: no rashes Extremities: trace edema, no digital clubbing Psych: normal affect Objective Last Vital Signs Temp 36.0 C L 10/30/25 03:37 Pulse 63 10/30/25 03:37 Resp 16 10/30/25 03:37 BP 135/88 10/30/25 03:37 Pulse Ox 91 L 10/30/25 03:37 Laboratory Results - last 24 hr 10/29/25 05:50 WBC 6.09 RBC 4.27 Hgb 13.4 D Hct 42.4 MCV 99 H MCH 31.4 MCHC 31.6 L RDW 13.5 Plt Count 234 MPV 9.1 Immature Gran % 0.3 Neutrophils % 59.8 Lymphocytes % 23.8 Monocytes % 5.7 Eosinophils % 9.7 Basophils % 0.7 Nucleated RBC % 0.0 Absolute Neutrophils 3.64 Absolute Lymphocytes 1.45 Absolute Monocytes 0.35 Absolute Eosinophils 0.59 Absolute Basophils 0.04 Sodium 145 Potassium 4.1 Chloride 105 Carbon Dioxide 32.8 H Anion Gap 7.2 BUN 19 Creatinine 0.80 Est GFR (CKD-EPI 2020) 72.95 Glucose 112 H Calcium 8.6 Total Bilirubin 0.40 AST 13 ALT 10 Alkaline Phosphatase 70 Total Protein 6.4 Albumin 3.8 Results Medications Medications: Active Medications Generic Name Dose Route Start Last Admin Trade Name Freq PRN Reason Stop Dose Admin Acetaminophen 650 mg 10/27/25 15:32 Acetaminophen 325 Mg Tab PO Q6H PRN PRN Pain Albuterol Sulfate 2.5 mg 10/29/25 09:17 10/29/25 09:21 Albuterol 2.5 Mg/3 Ml Inh Soln Vial UPD 2.5 mg Q2H PRN PRN Administration Albuterol/Ipratropium 1 puff 10/29/25 12:00 10/29/25 19:45 Ipratropium/Albuterol 4 Gm 120 Puff Inh IH 1 puff QID REFUGIO Administration Apixaban 5 mg 10/27/25 20:00 10/29/25 19:55 Apixaban 5 Mg Tab PO 5 mg BID REFUGIO Administration Buprenorphine/Naloxone 1 each 10/28/25 08:30 10/29/25 09:37 Buprenorphine/Naloxone 8 Mg/2 Mg Film SL 1 each DAILY REFUGIO Administration Doxycycline Hyclate 100 mg 10/28/25 10:00 10/29/25 21:33 Doxycycline Hyclate 100 Mg Cap PO 100 mg Q12H REFUGIO Administration Furosemide 40 mg 10/28/25 08:30 10/29/25 09:37 Furosemide 20 Mg Tab PO 40 mg DAILY REFUGIO Administration Guaifenesin 600 mg 10/27/25 20:00 10/29/25 19:51 Guaifenesin 600 Mg Tabcr PO Not Given BID REFUGIO Morphine Sulfate 1 mg 10/29/25 14:37 Morphine 2 Mg/Ml Syr IVP Q1H PRN PRN Nicotine 21 mg 10/29/25 14:44 Nicotine 21 Mg/24 Hr Patch TD DAILY PRN PRN Pt's Own Med ( 2 each 10/28/25 08:30 10/29/25 09:17 Annora Ellipta 62.5- IH 2 each ) DAILY REFUGIO Administration Polyethylene Glycol 17 gm 10/27/25 12:04 Polyethylene Glycol 3350 17 Gm Packet PO DAILY PRN PRN Constipation Prednisone 60 mg 10/29/25 08:30 10/29/25 19:55 Prednisone 20 Mg Tab PO 60 mg BID REFUGIO Administration Sodium Chloride 0 ml 10/28/25 20:00 10/29/25 19:56 Normal Saline Flush 10 Ml Syr IVP 10 ml BID REFUGIO Administration Allergies aspirin Allergy (Unknown, Verified 10/27/25 06:17) Other (See Comment) codeine Allergy (Unknown, Verified 10/27/25 06:17) Other (See Comment) Labs 10/30/25 06:10 10/29/25 05:50 Labs: Laboratory Tests Range/Units 10/27/25 10/27/25 10/27/25 06:15 06:40 07:49 WBC (4.4-10.8) 10^3/uL 7.44 RBC (3.93-5.22) 10^6/uL 4.24 Hgb (11.2-15.7) g/dL 13.3 Hct (36.0-46.0) % 41.2 MCV (80-95) fL 97 H MCH (27.0-33.0) pg 31.4 MCHC (32.0-36.0) % 32.3 RDW (11.7-14.6) % 13.4 Plt Count (130-400) 10^3/uL 207 MPV (8.0-11.0) fL 8.8 Immature Gran % % 0.4 Neutrophils % % 55.3 Lymphocytes % % 19.8 Monocytes % % 7.7 Eosinophils % % 16.4 Basophils % % 0.4 Nucleated RBC % (0.0-0.3) % 0.0 Absolute Neutrophils (1.2-6.7) 10^3/uL 4.12 Absolute Lymphocytes (1.2-3.4) 10^3/uL 1.47 Absolute Monocytes (0.1-0.8) 10^3/uL 0.57 Absolute Eosinophils (0.0-0.7) 10^3/uL 1.22 H Absolute Basophils (0.0-0.2) 10^3/uL 0.03 VBG pH (7.31-7.41) 7.27 L 7.26 L VBG pCO2 (41-51) mmHg 69 H* 73 H* VBG pO2 mmHg 98 42 VBG HCO3 (23-28) mmol/L 32 H 33 H VBG Total CO2 (24-29) mmol/L 29 30 H VBG O2 Saturation % 98 74 VBG Base Excess (-2-3) mmol/L 5 H 5 H Sodium (136-145) mmol/L 143 Potassium (3.5-5.1) mmol/L 4.3 Chloride (98-107) mmol/L 105 Carbon Dioxide (20.0-31.0) mmol/L 33.6 H Anion Gap (3-11) mmol/L 4.4 BUN (9-23) mg/dL 11 Creatinine (0.55-1.02) mg/dL 0.69 Est GFR (CKD-EPI 2020) (mL/min/1.73m2) 86.54 Glucose (74-106) mg/dL 87 Calcium (8.3-10.6) mg/dL 8.7 Magnesium (1.6-2.6) mg/dL 2.1 Total Bilirubin (0.2-1.2) mg/dL AST (<34) U/L ALT (10-49) U/L Alkaline Phosphatase (46-116) U/L Troponin I (<35) ng/L 13 17 NT-Pro-B Natriuret Pep (<300) pg/mL 69 Total Protein (5.7-8.2) g/dL Albumin (3.2-5.0) g/dL COVID-19 Source Nasopharynx SARS-CoV-2 (PCR) (Negative) Negative Influenza Type A (PCR) (Negative) Negative Influenza Type B (PCR) (Negative) Negative RSV (PCR) (Negative) Negative Range/Units 10/27/25 10/27/25 10/28/25 08:56 11:01 05:37 WBC (4.4-10.8) 10^3/uL 6.55 RBC (3.93-5.22) 10^6/uL 3.63 L Hgb (11.2-15.7) g/dL 11.2 D Hct (36.0-46.0) % 35.4 L MCV (80-95) fL 98 H MCH (27.0-33.0) pg 30.9 MCHC (32.0-36.0) % 31.6 L RDW (11.7-14.6) % 13.2 Plt Count (130-400) 10^3/uL 190 MPV (8.0-11.0) fL 9.1 Immature Gran % % 0.5 Neutrophils % % 78.0 Lymphocytes % % 12.1 Monocytes % % 8.4 Eosinophils % % 0.8 Basophils % % 0.2 Nucleated RBC % (0.0-0.3) % 0.0 Absolute Neutrophils (1.2-6.7) 10^3/uL 5.12 Absolute Lymphocytes (1.2-3.4) 10^3/uL 0.79 L Absolute Monocytes (0.1-0.8) 10^3/uL 0.55 Absolute Eosinophils (0.0-0.7) 10^3/uL 0.05 Absolute Basophils (0.0-0.2) 10^3/uL 0.01 VBG pH (7.31-7.41) 7.25 L 7.31 VBG pCO2 (41-51) mmHg 72 H* 61 H VBG pO2 mmHg 37 47 VBG HCO3 (23-28) mmol/L 32 H 31 H VBG Total CO2 (24-29) mmol/L 29 28 VBG O2 Saturation % 65 83 VBG Base Excess (-2-3) mmol/L 4 H 4 H Sodium (136-145) mmol/L 144 Potassium (3.5-5.1) mmol/L 4.3 Chloride (98-107) mmol/L 106 Carbon Dioxide (20.0-31.0) mmol/L 34.3 H Anion Gap (3-11) mmol/L 3.7 BUN (9-23) mg/dL 17 Creatinine (0.55-1.02) mg/dL 0.68 Est GFR (CKD-EPI 2020) (mL/min/1.73m2) 88.00 Glucose (74-106) mg/dL 111 H Calcium (8.3-10.6) mg/dL 8.2 L Magnesium (1.6-2.6) mg/dL 2.1 Total Bilirubin (0.2-1.2) mg/dL 0.30 AST (<34) U/L 11 ALT (10-49) U/L 9 L Alkaline Phosphatase (46-116) U/L 61 Troponin I (<35) ng/L NT-Pro-B Natriuret Pep (<300) pg/mL Total Protein (5.7-8.2) g/dL 5.5 L Albumin (3.2-5.0) g/dL 3.4 COVID-19 Source SARS-CoV-2 (PCR) (Negative) Influenza Type A (PCR) (Negative) Influenza Type B (PCR) (Negative) RSV (PCR) (Negative) Range/Units 10/29/25 05:50 WBC (4.4-10.8) 10^3/uL 6.09 RBC (3.93-5.22) 10^6/uL 4.27 Hgb (11.2-15.7) g/dL 13.4 D Hct (36.0-46.0) % 42.4 MCV (80-95) fL 99 H MCH (27.0-33.0) pg 31.4 MCHC (32.0-36.0) % 31.6 L RDW (11.7-14.6) % 13.5 Plt Count (130-400) 10^3/uL 234 MPV (8.0-11.0) fL 9.1 Immature Gran % % 0.3 Neutrophils % % 59.8 Lymphocytes % % 23.8 Monocytes % % 5.7 Eosinophils % % 9.7 Basophils % % 0.7 Nucleated RBC % (0.0-0.3) % 0.0 Absolute Neutrophils (1.2-6.7) 10^3/uL 3.64 Absolute Lymphocytes (1.2-3.4) 10^3/uL 1.45 Absolute Monocytes (0.1-0.8) 10^3/uL 0.35 Absolute Eosinophils (0.0-0.7) 10^3/uL 0.59 Absolute Basophils (0.0-0.2) 10^3/uL 0.04 VBG pH (7.31-7.41) VBG pCO2 (41-51) mmHg VBG pO2 mmHg VBG HCO3 (23-28) mmol/L VBG Total CO2 (24-29) mmol/L VBG O2 Saturation % VBG Base Excess (-2-3) mmol/L Sodium (136-145) mmol/L 145 Potassium (3.5-5.1) mmol/L 4.1 Chloride (98-107) mmol/L 105 Carbon Dioxide (20.0-31.0) mmol/L 32.8 H Anion Gap (3-11) mmol/L 7.2 BUN (9-23) mg/dL 19 Creatinine (0.55-1.02) mg/dL 0.80 Est GFR (CKD-EPI 2020) (mL/min/1.73m2) 72.95 Glucose (74-106) mg/dL 112 H Calcium (8.3-10.6) mg/dL 8.6 Magnesium (1.6-2.6) mg/dL Total Bilirubin (0.2-1.2) mg/dL 0.40 AST (<34) U/L 13 ALT (10-49) U/L 10 Alkaline Phosphatase (46-116) U/L 70 Troponin I (<35) ng/L NT-Pro-B Natriuret Pep (<300) pg/mL Total Protein (5.7-8.2) g/dL 6.4 Albumin (3.2-5.0) g/dL 3.8 COVID-19 Source SARS-CoV-2 (PCR) (Negative) Influenza Type A (PCR) (Negative) Influenza Type B (PCR) (Negative) RSV (PCR) (Negative) Imaging Chest x-ray: report reviewed and image reviewed
[2025-10-30 06:53] LABS: Abs Immature Grans 0.03 10^3/uL (0.0-0.06); HCT 39.5 % (36.0-46.0); HGB 13.0 g/dL (11.2-15.7); Immature Grans % 0.4 %; MCH 31.5 pg (27.0-33.0); MCHC 32.9 % (32.0-36.0); MCV 96 fL (80-95); MPV 9.0 fL (8.0-11.0); Platelet Count 220 10^3/uL (130-400); RBC 4.13 10^6/uL (3.93-5.22); RDW 12.7 % (11.7-14.6); RDW-SD 44.6 fL; WBC 7.84 10^3/uL (4.4-10.8)
[2025-10-30] MEDS: [UNRECOGNIZED DRUG - OTHER] 2 EACH IH (07:50)
[2025-10-30] MEDS: Ipratropium/Albuterol 4 GM 120 PUFF INH IH ×4 (07:51→19:54)
[2025-10-30] MEDS: Doxycycline Hyclate 100 MG CAP PO ×2 (09:33→21:21)
[2025-10-30] MEDS: Furosemide 20 MG TAB 40 MG PO (09:34)
[2025-10-30] MEDS: Apixaban 5 MG TAB PO ×2 (09:34→21:24)
[2025-10-30] MEDS: predniSONE 20 MG TAB 60 MG PO (09:34)
[2025-10-30] MEDS: Buprenorphine/Naloxone 8 mg/2 mg FILM 1 EACH SL (09:35)
[2025-10-30] MEDS: Normal Saline Flush 10 ML SYR IVP ×2 (09:35→21:21)
[2025-10-30 09:49] LABS: BE 9 mmol/L (-2-3); HCO3 33 mmol/L (22-26)
[2025-10-30 09:51] LABS: FIO2L 1 L
[2025-10-30 10:37] LABS: Lyme Ab w Rflx to Lyme Confirm Negative (Negative)
--- NOTE | 2025-10-30 12:32 | PGE_ITS ---
Date of Service Date of service: 10/30/25 Time of Service: 12:32 Assessment and Plan Assessment and plan (1) COPD exacerbation: Status: Acute Assessment and plan: Initially patient required CPAP, off after about 6 hours, to floor status 10/28 Plan to finish a week course of doxycycline. Appreciate pulm input, added steroids 10/29 with good effect. She may benefit from dupixant manager intermediate given high eosinophilia. Also discussed triggers (vaping, cat) Continue scheduled albuterol ipratropium inhaler and prn albuterol nebs (2) Chronic hypoxic respiratory failure, on home oxygen therapy: Status: Acute Assessment and plan: Home O2 used PRN (but prescribed 1 liter). Was weaned back to 1 liter 10/29 PM. (3) Atrial flutter, paroxysmal: Status: Acute Assessment and plan: Continue home apixaban Continue home furosemide (4) Drug abuse in remission: Assessment and plan: Continue MAT, denies recent use. (5) Edema of both lower extremities: Status: Acute Assessment and plan: Likely lymphedema, venous stasis. H/o HFpEF but not actively fluid overloaded now. echocardiogram 10/29 showed preserved LVEF but some diastolic dysfunction. Looking at IVC does not appear fluid overloaded, continue home dose of furosemide and treat asthma/COPD as above. Discharge Planning Discharge Planning: home 10/31 if continues to improve, with steroid taper Subjective Subjective Patient reports: no new complaints and feels better; denies diarrhea, nausea, vomiting or fever Interval history since last seen: Events: started steroids 10/29 Seen by pulmonology in follow up this morning She is feeling better today. Still SOB but less so. Leg swelling is no worse. minimal cough. Exam Narrative Exam Narrative: General: This is a pleasant woman in no distress CV: RRR Resp: Improved air movement, not with more mild expiratory wheeze, no rales Abd: soft, NTND Ext: ewelina woody edema to knees with 1+ pitting and hyperpigmentation of shins Neuro: awake, alert, no focal deficits Objective Last Vital Signs Temp 36.6 C 10/30/25 11:25 Pulse 83 10/30/25 11:25 Resp 17 10/30/25 11:25 BP 142/92 H 10/30/25 11:52 Pulse Ox 94 10/30/25 11:25 Laboratory Results - last 24 hr 10/30/25 10/30/25 06:10 09:45 WBC 7.84 RBC 4.13 Hgb 13.0 Hct 39.5 MCV 96 H MCH 31.5 MCHC 32.9 RDW 12.7 Plt Count 220 MPV 9.0 Immature Gran % 0.4 Neutrophils % 88.3 Lymphocytes % 8.0 Monocytes % 3.2 Eosinophils % 0.1 Basophils % 0.0 Nucleated RBC % 0.0 Absolute Neutrophils 6.92 H Absolute Lymphocytes 0.63 L Absolute Monocytes 0.25 Absolute Eosinophils 0.01 Absolute Basophils 0.00 ABG Sample Site Left Radial ABG pH 7.45 ABG pCO2 47 H ABG pO2 69 L ABG HCO3 33 H ABG Total CO2 29 H ABG O2 Saturation 95 ABG Base Excess 9 H Oxygen Liter Flow 1 VTE Prohylaxis Risk Level: Moderate/High Risk Contraindications: None Prophylaxis: Patient anticoagulated Time Spent with Patient Time Spent with Patient: 35-49 minutes Time was spent: preparing to see the patient(eg.review tests), obtaining and/or reviewing separately otained hiistory, ordering medications,tests, procedures, referring, communicating with other health acute care physical therapist, indepentently interpreting results, counseling the patient and care coordination
--- NOTE | 2025-10-30 14:06 | PDOC.CMPRO ---
Date of service: 10/30/25 Time of Service: 14:13 Care Management Progress Note Progress Note Text Progress Note Text: Carmen was sitting up in bed when CM met with her. Per report, she is on 1L O2 via nc, which aligns with her prescribed baseline, though she typically uses home oxygen on a PRN basis. Per RT, her oxygen requirement has returned to baseline. Per report, the Neely catheter is scheduled for removal. Per the provider, discharge is anticipated for tomorrow. CM will continue to follow. Discharge Potential Discharge Needs: PCP F/U Appt Anticipated Barriers to Discharge: None Identified Patient/Family Education Needs: Review discharge instructions, discuss Ask Me Three Transportation: [facility] Transportation: Private vechicle Plan: Anticipate Carmen will return home tommorw, with new [facility] PT to be be evaluated for Better Breather's/OT/RN/COSTUME SEAMSTRESS once medically cleared. She will f/u with her PCP at an already scheduled hospital f/u on 11/09. She will likely transport via RCT private vehicle. She will follow up with her community providers and discharge plan of care. CM will continue to follow. Social Determinants of Health Screening Social Determinants of health last assessed in clinic: 10/30/25 Will the Patient Participate in the Screening?: Yes Do you worry about having a steady place to live?: no Problems where you live: no known problems In the past 12 months, have you had to go without electric, gas, oil or water in your home?: no 1. Within the past 12 months, we worried whether our food would run out before we got money to buy more.: Never true 2. Within the past 12 months, the food we bought just didn't last and we didn't have money to get more.: Never true Has lack of transportation kept you from medical appointments or from doing things needed for daily living?: no Has anyone in your life made you feel unsafe or unsupported?: no How hard is it for you to pay for the very basics like food, housing, medical care, and heating? Would you say it is:: Not hard at all Do you want help finding or keeping work or a job?: I do not need or want help If for any reason you need help with day-to-day activities such as bathing, preparing meals, shopping, managing finances, etc., do you get the help you need?: I don?t need any help How often do you feel lonely or isolated from those around you?: Rarely Do you speak a language other than Vincentian at home?: No Does the patient want assistance with any of the above?: No Health Related Social Needs Health related social needs: feeling lonely/isolated (Z60.8)
[2025-10-31 00:06] VITALS: BP 135/83; PULSE 87; RESP 17; TEMP 36.2; O2SAT 94
[2025-10-31 05:41] VITALS: BP 114/75; PULSE 79; TEMP 36.5; O2SAT 92
--- NOTE | 2025-10-31 06:46 | PGE_ITS ---
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 Asthma/COPD exacerbation - improved. ABG did not show evidence of significant chronic CO2 retention. Baseline CO2 47 2. Severe persistent asthma - Prior PFT's more suggestive of asthma. Peripheral eos as high as 1220/mcL in the past month 3. Acute on chronic hypoxemic respiratory failure - due to asthma/COPD exacerbation. Currently on 1 L O2 4. Hx pulmonary embolism - on eliquis. Dx 11/2021. Diagnosed around the time of an acute COVID-19 infection - likely provoked episode. 5. Hx Afib/flutter - on eliquis Plan: - continue prednisone 60 mg daily. Plan for 4 more days of steroids - continue doxycycline for 7 days total - continue scheduled bronchodilators - discharge with a high dose ICS/LABA/LAMA inhaler (Trelegy 200 daily or breztri BID). May benefit from biologics (ie Dupixent) given her recurrent exacerbations and peripheral eosinophila. Will re-address at clinic follow up. - will need repeat PFT's as outpatient - ambulatory oximetry study prior to discharge to assess home O2 needs - OK for discharge from a pulmonary standpoint Discussed with Dr. Bangura Subjective Note Note: Patient is a 59 yo with a history of COPD, chronic hypoxemic respiratory failure, and PAF who presented to the ED on 10/27 for worsening dyspnea. She has had multiple admissions over the past few months, for COPD exacerbation. EMS was called to her house and found her hypoxic. CXR in the ED was umremarkable. Prior CTa chest on 10/04/25 was negative for acute PE. She was started on systemic steroids upon admission. She was using anoro and PRN albuterol at home. Dyspnea improved today. Cough also improved. Denied purulent sputum production. Currently on 1 L O2. She quit smoking tobacco several years ago. Was using vapor cigarettes daily up until admission ROS: 6 pt ROS negative except as above. Sx: smoked 0.5 ppd x 10 years. Quit ~2022 Exam Narrative Exam Narrative: General: alert, no acute distress Head: normocephalic ENT: no stridor, trachea midline CV: normal rate, regular rhythm Respiratory: mild bilateral wheezing, no crackles, no rhonchi, no prolonged expiration GI: abd soft, non-tender, non-distended Skin: no rashes Extremities: trace edema, no digital clubbing Psych: normal affect Objective Last Vital Signs Temp 36.5 C 10/31/25 05:41 Pulse 79 10/31/25 05:41 Resp 17 10/31/25 00:06 BP 114/75 10/31/25 05:41 Pulse Ox 92 10/31/25 05:41 Laboratory Results - last 24 hr 10/28/25 10/30/25 10/30/25 05:37 06:10 09:45 WBC 7.84 RBC 4.13 Hgb 13.0 Hct 39.5 MCV 96 H MCH 31.5 MCHC 32.9 RDW 12.7 Plt Count 220 MPV 9.0 Immature Gran % 0.4 Neutrophils % 88.3 Lymphocytes % 8.0 Monocytes % 3.2 Eosinophils % 0.1 Basophils % 0.0 Nucleated RBC % 0.0 Absolute Neutrophils 6.92 H Absolute Lymphocytes 0.63 L Absolute Monocytes 0.25 Absolute Eosinophils 0.01 Absolute Basophils 0.00 ABG Sample Site Left Radial ABG pH 7.45 ABG pCO2 47 H ABG pO2 69 L ABG HCO3 33 H ABG Total CO2 29 H ABG O2 Saturation 95 ABG Base Excess 9 H Oxygen Liter Flow 1 Lyme Disease Antibody Negative Results Medications Medications: Active Medications Generic Name Dose Route Start Last Admin Trade Name Freq PRN Reason Stop Dose Admin Acetaminophen 650 mg 10/27/25 15:32 Acetaminophen 325 Mg Tab PO Q6H PRN PRN Pain Albuterol Sulfate 2.5 mg 10/29/25 09:17 10/29/25 09:21 Albuterol 2.5 Mg/3 Ml Inh Soln Vial UPD 2.5 mg Q2H PRN PRN Administration Albuterol/Ipratropium 1 puff 10/29/25 12:00 10/30/25 19:54 Ipratropium/Albuterol 4 Gm 120 Puff Inh IH 1 puff QID REFUGIO Administration Apixaban 5 mg 10/27/25 20:00 10/30/25 21:24 Apixaban 5 Mg Tab PO 5 mg BID REFUGIO Administration Buprenorphine/Naloxone 1 each 10/28/25 08:30 10/30/25 09:35 Buprenorphine/Naloxone 8 Mg/2 Mg Film SL 1 each DAILY REFUGIO Administration Doxycycline Hyclate 100 mg 10/28/25 10:00 10/30/25 21:21 Doxycycline Hyclate 100 Mg Cap PO 100 mg Q12H REFUGIO Administration Furosemide 40 mg 10/28/25 08:30 10/30/25 09:34 Furosemide 20 Mg Tab PO 40 mg DAILY REFUGIO Administration Guaifenesin 600 mg 10/27/25 20:00 10/30/25 21:22 Guaifenesin 600 Mg Tabcr PO Not Given BID REFUGIO Morphine Sulfate 1 mg 10/29/25 14:37 Morphine 2 Mg/Ml Syr IVP Q1H PRN PRN Nicotine 21 mg 10/29/25 14:44 Nicotine 21 Mg/24 Hr Patch TD DAILY PRN PRN Pt's Own Med ( 2 each 10/28/25 08:30 10/30/25 07:50 Annora Ellipta 62.5- IH 2 each ) DAILY REFUGIO Administration Polyethylene Glycol 17 gm 10/27/25 12:04 Polyethylene Glycol 3350 17 Gm Packet PO DAILY PRN PRN Constipation Prednisone 60 mg 10/30/25 08:30 10/30/25 09:34 Prednisone 20 Mg Tab PO 60 mg DAILY REFUGIO Administration Sodium Chloride 0 ml 10/28/25 20:00 10/30/25 21:21 Normal Saline Flush 10 Ml Syr IVP 10 ml BID REFUGIO Administration Allergies aspirin Allergy (Unknown, Verified 10/27/25 06:17) Other (See Comment) codeine Allergy (Unknown, Verified 10/27/25 06:17) Other (See Comment) Labs 10/30/25 06:10 10/29/25 05:50 Labs: Laboratory Tests Range/Units 10/27/25 10/27/25 10/27/25 06:15 06:40 07:49 WBC (4.4-10.8) 10^3/uL 7.44 RBC (3.93-5.22) 10^6/uL 4.24 Hgb (11.2-15.7) g/dL 13.3 Hct (36.0-46.0) % 41.2 MCV (80-95) fL 97 H MCH (27.0-33.0) pg 31.4 MCHC (32.0-36.0) % 32.3 RDW (11.7-14.6) % 13.4 Plt Count (130-400) 10^3/uL 207 MPV (8.0-11.0) fL 8.8 Immature Gran % % 0.4 Neutrophils % % 55.3 Lymphocytes % % 19.8 Monocytes % % 7.7 Eosinophils % % 16.4 Basophils % % 0.4 Nucleated RBC % (0.0-0.3) % 0.0 Absolute Neutrophils (1.2-6.7) 10^3/uL 4.12 Absolute Lymphocytes (1.2-3.4) 10^3/uL 1.47 Absolute Monocytes (0.1-0.8) 10^3/uL 0.57 Absolute Eosinophils (0.0-0.7) 10^3/uL 1.22 H Absolute Basophils (0.0-0.2) 10^3/uL 0.03 ABG Sample Site ABG pH (7.35-7.45) ABG pCO2 (35-45) mmHg ABG pO2 (80-105) mmHg ABG HCO3 (22-26) mmol/L ABG Total CO2 (23-27) mmol/L ABG O2 Saturation (95-98) % ABG Base Excess (-2-3) mmol/L VBG pH (7.31-7.41) 7.27 L 7.26 L VBG pCO2 (41-51) mmHg 69 H* 73 H* VBG pO2 mmHg 98 42 VBG HCO3 (23-28) mmol/L 32 H 33 H VBG Total CO2 (24-29) mmol/L 29 30 H VBG O2 Saturation % 98 74 VBG Base Excess (-2-3) mmol/L 5 H 5 H Oxygen Liter Flow L Sodium (136-145) mmol/L 143 Potassium (3.5-5.1) mmol/L 4.3 Chloride (98-107) mmol/L 105 Carbon Dioxide (20.0-31.0) mmol/L 33.6 H Anion Gap (3-11) mmol/L 4.4 BUN (9-23) mg/dL 11 Creatinine (0.55-1.02) mg/dL 0.69 Est GFR (CKD-EPI 2020) (mL/min/1.73m2) 86.54 Glucose (74-106) mg/dL 87 Calcium (8.3-10.6) mg/dL 8.7 Magnesium (1.6-2.6) mg/dL 2.1 Total Bilirubin (0.2-1.2) mg/dL AST (<34) U/L ALT (10-49) U/L Alkaline Phosphatase (46-116) U/L Troponin I (<35) ng/L 13 17 NT-Pro-B Natriuret Pep (<300) pg/mL 69 Total Protein (5.7-8.2) g/dL Albumin (3.2-5.0) g/dL Lyme Disease Antibody (Negative) COVID-19 Source Nasopharynx SARS-CoV-2 (PCR) (Negative) Negative Influenza Type A (PCR) (Negative) Negative Influenza Type B (PCR) (Negative) Negative RSV (PCR) (Negative) Negative Range/Units 10/27/25 10/27/25 10/28/25 08:56 11:01 05:37 WBC (4.4-10.8) 10^3/uL 6.55 RBC (3.93-5.22) 10^6/uL 3.63 L Hgb (11.2-15.7) g/dL 11.2 D Hct (36.0-46.0) % 35.4 L MCV (80-95) fL 98 H MCH (27.0-33.0) pg 30.9 MCHC (32.0-36.0) % 31.6 L RDW (11.7-14.6) % 13.2 Plt Count (130-400) 10^3/uL 190 MPV (8.0-11.0) fL 9.1 Immature Gran % % 0.5 Neutrophils % % 78.0 Lymphocytes % % 12.1 Monocytes % % 8.4 Eosinophils % % 0.8 Basophils % % 0.2 Nucleated RBC % (0.0-0.3) % 0.0 Absolute Neutrophils (1.2-6.7) 10^3/uL 5.12 Absolute Lymphocytes (1.2-3.4) 10^3/uL 0.79 L Absolute Monocytes (0.1-0.8) 10^3/uL 0.55 Absolute Eosinophils (0.0-0.7) 10^3/uL 0.05 Absolute Basophils (0.0-0.2) 10^3/uL 0.01 ABG Sample Site ABG pH (7.35-7.45) ABG pCO2 (35-45) mmHg ABG pO2 (80-105) mmHg ABG HCO3 (22-26) mmol/L ABG Total CO2 (23-27) mmol/L ABG O2 Saturation (95-98) % ABG Base Excess (-2-3) mmol/L VBG pH (7.31-7.41) 7.25 L 7.31 VBG pCO2 (41-51) mmHg 72 H* 61 H VBG pO2 mmHg 37 47 VBG HCO3 (23-28) mmol/L 32 H 31 H VBG Total CO2 (24-29) mmol/L 29 28 VBG O2 Saturation % 65 83 VBG Base Excess (-2-3) mmol/L 4 H 4 H Oxygen Liter Flow L Sodium (136-145) mmol/L 144 Potassium (3.5-5.1) mmol/L 4.3 Chloride (98-107) mmol/L 106 Carbon Dioxide (20.0-31.0) mmol/L 34.3 H Anion Gap (3-11) mmol/L 3.7 BUN (9-23) mg/dL 17 Creatinine (0.55-1.02) mg/dL 0.68 Est GFR (CKD-EPI 2020) (mL/min/1.73m2) 88.00 Glucose (74-106) mg/dL 111 H Calcium (8.3-10.6) mg/dL 8.2 L Magnesium (1.6-2.6) mg/dL 2.1 Total Bilirubin (0.2-1.2) mg/dL 0.30 AST (<34) U/L 11 ALT (10-49) U/L 9 L Alkaline Phosphatase (46-116) U/L 61 Troponin I (<35) ng/L NT-Pro-B Natriuret Pep (<300) pg/mL Total Protein (5.7-8.2) g/dL 5.5 L Albumin (3.2-5.0) g/dL 3.4 Lyme Disease Antibody (Negative) Negative COVID-19 Source SARS-CoV-2 (PCR) (Negative) Influenza Type A (PCR) (Negative) Influenza Type B (PCR) (Negative) RSV (PCR) (Negative) Range/Units 10/29/25 10/30/25 10/30/25 05:50 06:10 09:45 WBC (4.4-10.8) 10^3/uL 6.09 7.84 RBC (3.93-5.22) 10^6/uL 4.27 4.13 Hgb (11.2-15.7) g/dL 13.4 D 13.0 Hct (36.0-46.0) % 42.4 39.5 MCV (80-95) fL 99 H 96 H MCH (27.0-33.0) pg 31.4 31.5 MCHC (32.0-36.0) % 31.6 L 32.9 RDW (11.7-14.6) % 13.5 12.7 Plt Count (130-400) 10^3/uL 234 220 MPV (8.0-11.0) fL 9.1 9.0 Immature Gran % % 0.3 0.4 Neutrophils % % 59.8 88.3 Lymphocytes % % 23.8 8.0 Monocytes % % 5.7 3.2 Eosinophils % % 9.7 0.1 Basophils % % 0.7 0.0 Nucleated RBC % (0.0-0.3) % 0.0 0.0 Absolute Neutrophils (1.2-6.7) 10^3/uL 3.64 6.92 H Absolute Lymphocytes (1.2-3.4) 10^3/uL 1.45 0.63 L Absolute Monocytes (0.1-0.8) 10^3/uL 0.35 0.25 Absolute Eosinophils (0.0-0.7) 10^3/uL 0.59 0.01 Absolute Basophils (0.0-0.2) 10^3/uL 0.04 0.00 ABG Sample Site Left Radial ABG pH (7.35-7.45) 7.45 ABG pCO2 (35-45) mmHg 47 H ABG pO2 (80-105) mmHg 69 L ABG HCO3 (22-26) mmol/L 33 H ABG Total CO2 (23-27) mmol/L 29 H ABG O2 Saturation (95-98) % 95 ABG Base Excess (-2-3) mmol/L 9 H VBG pH (7.31-7.41) VBG pCO2 (41-51) mmHg VBG pO2 mmHg VBG HCO3 (23-28) mmol/L VBG Total CO2 (24-29) mmol/L VBG O2 Saturation % VBG Base Excess (-2-3) mmol/L Oxygen Liter Flow L 1 Sodium (136-145) mmol/L 145 Potassium (3.5-5.1) mmol/L 4.1 Chloride (98-107) mmol/L 105 Carbon Dioxide (20.0-31.0) mmol/L 32.8 H Anion Gap (3-11) mmol/L 7.2 BUN (9-23) mg/dL 19 Creatinine (0.55-1.02) mg/dL 0.80 Est GFR (CKD-EPI 2020) (mL/min/1.73m2) 72.95 Glucose (74-106) mg/dL 112 H Calcium (8.3-10.6) mg/dL 8.6 Magnesium (1.6-2.6) mg/dL Total Bilirubin (0.2-1.2) mg/dL 0.40 AST (<34) U/L 13 ALT (10-49) U/L 10 Alkaline Phosphatase (46-116) U/L 70 Troponin I (<35) ng/L NT-Pro-B Natriuret Pep (<300) pg/mL Total Protein (5.7-8.2) g/dL 6.4 Albumin (3.2-5.0) g/dL 3.8 Lyme Disease Antibody (Negative) COVID-19 Source SARS-CoV-2 (PCR) (Negative) Influenza Type A (PCR) (Negative) Influenza Type B (PCR) (Negative) RSV (PCR) (Negative) Imaging Chest x-ray: report reviewed and image reviewed
[2025-10-31] MEDS: Ipratropium/Albuterol 4 GM 120 PUFF INH IH ×2 (07:35→12:26)
[2025-10-31] MEDS: [UNRECOGNIZED DRUG - OTHER] 2 EACH IH (07:35)
--- NOTE | 2025-10-31 08:51 | PDOC.CMDIS ---
Date of service: 10/31/25 Time of Service: 08:51 LACE Index Scoring Tool Questions: Length of Stay (in days): 4 - 6 Was the patient admitted via the E.D.?: Yes Comorbidities: Chronic Pulmonary Disease E.D. Visits: 5 Answers: Total Score: 13 Risk of Readmission: High Risk Care Management Discharge Plan Reason for Hospitalization: Respiratory Failure Discharge Plan: Carmen is being discharged home with new [facility] PT to be evaluated for Better Breather's/OT/RN/PHLEBOTOMY TECHNICIAN via private vehicle. Patient will follow up with community providers and continue per her discharge plan of care. No new services are indicated at the time of discharge. Patient/Family Education Needs: Review discharge instructions, discuss ask me three. Services Needed at Discharge: Home Health Care Services SDOH Health Related Social Needs: Health related social needs lonely/isolated
--- NOTE | 2025-10-31 09:00 | RT.EKG_ITS ---
APPROVED REPORT Exam: Resting ECG Reason for Exam: chest pain Patient Location: I HR:93 bpm ECG Measurements Heart Rate 93 AXIS FL 103 P 42 QRSd 98 QRS 22 QT 333 T 62 QTc 415 Conclusion Sinus rhythm...normal P axis, V-rate 50- 99 Multiple ventricular premature complexes...V complexes w/ short R-R intervls Short FL interval...FL <110mS
[2025-10-31] MEDS: predniSONE 20 MG TAB 60 MG PO (09:29)
[2025-10-31] MEDS: Normal Saline Flush 10 ML SYR IVP (09:30)
[2025-10-31] MEDS: Furosemide 20 MG TAB 40 MG PO (09:30)
[2025-10-31] MEDS: Apixaban 5 MG TAB PO (09:30)
[2025-10-31] MEDS: Doxycycline Hyclate 100 MG CAP PO (09:30)
[2025-10-31] MEDS: Buprenorphine/Naloxone 8 mg/2 mg FILM 1 EACH SL (09:30)
--- NOTE | 2025-10-31 09:51 | PT.INTREAT ---
PT Notes Visit Reasons: Respiratory Failure Physical Therapy Inpatient Treatment Note Date: 10/31/2025 Precautions: Fall. Standard. Activity as tolerated. SUBJECTIVE: Worried about how much stress in the family she will be getting back into which may aggravate her condition. Did admit that since she will be going to her daughter who has has been helpful to her (and not to her own house where her other daughter with a problemtaic issue lives) that she may just do fine. Agreeable to doing walking in the hallway while her oxygen is being monitored. OBJECTIVE: General Observation: Patient sitting at edge of bed. O2 NC in place with 1L of O2/min. B legs erythema and swelling decreased. Mental Status: A and O x 4. Anxious about how her home situation would evolve in the coming days. Pain: None reported Vitals: on 1 L at rest 95%, lowest SaO2 throughout the 300 ft walk was 91%, and after walk at 91% via NC BED MOBILITY/TRANSFERS: Minimal cueing provided for use of B hands as needed for support, movement sequence, AD management, and posture to reduce fall risk and minimize pain report Rolling supervision Supine to sit supervision Sit to supine supervision Sit to stand supervision Stand to sit supervision Bed to chair supervision Chair to bed supervision GAIT: 300 feet with supervision with 4WW, SaO2 monitored throughout session. Lowest SaO2 throughout the 300 ft walk was 91% No lateral sway seen, no LOB. Balance: Static sitting Normal Dynamic sitting Fair Static standing Good Dynamic standing Fair Assessment: Patient demonstrated continued ability to perform mobility tasks with use of 4WW with no SOB on 1 L of O2 via NC. May contnue with HH PT at home to ensure a smooth transition and maximize safety at D/C destination. Educated patient about benefit of pursed lip breathing combinded with chest expansion exercises to help offset fatigue. optimize ventilatory funciotn, and minimize desaturation episode during ADL performance. Plan of Care/Treatment Plan: 1-2x/day, 7 days/week x 1 week Plan of care has been reviewed with the ENTRY LEVEL MECHANICAL ENGINEER providing the service under Physical Therapy direction. Continue with Physical Therapy intervention for strengthening, bed mobility, transfers, gait, stairs, balance training, use of assistive device. DISCHARGE RECOMMENDATIONS: HH PT for continued functional mobility retraining using most appropriate AD for longer distances. TREATMENT CODE/TIME: 09396 x 38 minutes for 3 units (9:51-10:29).
[2025-10-31 11:07] VITALS: BP 137/78; PULSE 89; RESP 19; TEMP 35.9; O2SAT 91
--- NOTE | 2025-10-31 11:56 | DSE_ITS ---
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: Status: Acute (4) Atrial flutter, paroxysmal: Status: Acute Discharge Plan Disposition Patient Disposition: Home W/Home Health Services Home Health Services: New Referral Condition: Improving Discharge Details Reason For Visit: Respiratory Failure Admit Date/Time: 10/27/25 12:04 Admit Provider: Luis Hays Attending Provider: Luis Hays Primary Care Provider: Javier Tyler [facility] Course Hospital Course: 59 year old woman with hiostry of COPD on 1 liter of oxygen at home, active vaping, pAfib and h/o PE on apixaban, with chronic lower extremity edema and venous stasis who presented October 27 with 2 days of worsening shortness of breath. This was her 4th ED visit and 3rd admission, in the last 30 days. Troponins were negative. She was hypoxic above her baseline and she was initially hypercarbic, requiring BiPAP therapy in the ICU her first night. Steroids were initially withheld as she had been on a prolonged taper, but they were started 10/29 and her wheezing and air movement clearly improved. Echocardiogram did show diastolic dysfunction, but she did not appear to be fluid overloaded and her home furosemide dose was continued. Her oxygen need was at baseline 0.5-1LPM at rest and 1-2LMP with exertion on the morning of discharge. Smoking/vaping cessation and med adherence were emphasized. She declined medical therapy for this. She was seen by Dr. Marshall who recommended changing inhaler to high dose Trelegy (adding inhaled steroid to LAMA/LABA) and steroid taper. He noted the high eosinophilia and felt she likely has asthma/COPD overlap and may benefit from biologic therapy. She should be evaluated for better breathers program with home health and follow up with pulmonology was made in 1 week. Home health nursing and PT also recommended after evaluation. Home Meds and New Rx's Prescriptions: New Trelegy Ellipta 200-62.5-25 mcg blister with device 1 inh inhalation DAILY Qty: 60 0RF prednisone 20 mg tablet See Taper PO DAILY 8 Days Qty: 13 0RF Taper: Prednisone 20mg taper 60 mg Daily for 2 Days and 0 Hour 40 mg Daily for 2 Days and 0 Hour 20 mg Daily for 2 Days and 0 Hour 10 mg Daily for 2 Days and 0 Hour doxycycline hyclate 100 mg tablet 100 mg PO BID 7 Days Qty: 14 0RF Continued Eliquis 5 mg tablet 5 mg PO BID albuterol sulfate [Ventolin HFA] 90 mcg/actuation HFA aerosol inhaler 2 inh inhalation Q4H PRN buprenorphine-naloxone [Suboxone] 8-2 mg Film 1 film sublingual DAILY Combivent Respimat 20-100 mcg/actuation Mist 1 puff inhalation QID Qty: 1 0RF furosemide 20 mg tablet 20 mg PO DAILY Patient Comments: TAKE 2 TABLETS BY MOUTH EVERY MORNING guaifenesin [Mucus Relief ER] 600 mg Tablet Extended Release 12hr 600 mg PO BID Qty: 20 0RF (DME) nebulizers Misc See Rx Instructions .Route Qty: 1 0RF Rx Instructions: As directed ipratropium-albuterol 0.5 mg-3 mg(2.5 mg base)/3 mL solution for nebulization 3 ml inhalation Q4H PRN PRNQty: 180 3RF Rx Instructions: for 3 doses Held azithromycin 250 mg Tablet 250 mg PO DAILY Qty: 90 0RF Hold Instructions: Resume on 11/07/25. hold while taking doxycycline Discontinued umeclidinium-vilanterol [Anoro Ellipta] 62.5-25 mcg/actuation blister with device 1 inh INHALATION DAILY Patient Comments: INHALE ONE PUFF BY MOUTH EVERY DAY prednisone 20 mg Tablet See Taper PO DAILY Qty: 53 0RF Taper: Prednisone 10mg taper 40 mg Daily for 5 Days and 0 Hour 30 mg Daily for 5 Days and 0 Hour 20 mg Daily for 5 Days and 0 Hour 10 mg Daily for 5 Days and 0 Hour 5 mg Daily for 5 Days and 0 Hour ipratropium-albuterol 0.5 mg-3 mg(2.5 mg base)/3 mL solution for nebulization 3 ml inhalation Q4H PRN PRNQty: 180 3RF Rx Instructions: for 3 doses Discharge Instructions Additional Instructions: Try to limit vaping and any other lung irritants Take the prednisone taper as prescribed and the week of doxycycline instead of the azithromycin You were prescribed a new stronger inhaler once per day, Trelegy Follow up with Dr. Marshall next week as planned. Stand Alone Forms: Portal Information, Nursing Discharge Form Referrals: Lonny Marshall MD [ [facility] STAFF PHYSICIAN, Pulmonology] Referral Note: Follow up with Dr. Marshall as planned. Javier Tyler [Primary Care Provider, Medicine] Referral Note: PCP will follow up with you, if they do not please reach out Activity:: Activity as Tolerated Equipment/Supplies:: No Equipment Needed Diet:: As Tolerated Discharge Orders Discharge Orders: Discharge Order (Routine); Ordered 10/31/25 Ordered By: Jaime Bangura Discharge Data Discharge Date/Time-TO BE ENTERED AT DEPARTURE: 10/31/25 13:20 DS: Summary Time Spent with Patient providing and/or coordinating discharge services: Greater than 30 minutes Status at Discharge Functional status at discharge: independent ambulation Overall status at discharge: patient is progressing back to baseline Mental Status: mental status grossly normal Speech and Movement: speech and movement normal Mood: congruent mood Affect: normal affect Quality:SDOH Health Related Social Needs: Health related social needs lonely/isolated Exam Narrative Exam Narrative: General: This is a pleasant woman in no distress, O2 at 1L NC CV: RRR, occasional skipped beat Resp: Improved air movement, mild expiratory wheeze, no rales Abd: soft, NTND Ext: ewelina woody edema to knees with 1+ pitting and hyperpigmentation of shins Neuro: awake, alert, no focal deficits Psych Mental Status: mental status grossly normal Speech and Movement: speech and movement normal Mood: congruent mood Affect: normal affect DS: Data Vitals/I&O Vitals and I&O: Vital Signs Temperature 35.9 C L 10/31/25 11:07 Temperature Source Temporal Artery Scan 10/31/25 11:07 Pulse 89 10/31/25 11:07 Pulse 111 H 10/28/25 16:30 Respiratory Rate 19 10/31/25 11:07 Respiratory Effort Short of Breath, Labored 10/27/25 15:00 Respiratory Depth Shallow 10/27/25 15:00 Respiratory Pattern Tachypnea 10/27/25 15:00 Blood Pressure 137/78 10/31/25 11:07 Blood Pressure Mean 97 10/31/25 11:07 Pulse Oximetry 91 L 10/31/25 11:07 Oxygen Delivery Method Nasal Cannula 10/31/25 11:07 Oxygen Flow Rate 0 10/31/25 11:07 Fraction of Inspired Oxygen (FIO2) 21 10/29/25 08:05 Pain Level 3 10/30/25 19:41 Comment RT paged re sats, pt repositioned to hifowlers 10/27/25 06:50 Intake & Output 10/30/25 10/30/25 10/31/25 11:59 23:59 11:59 Intake Total 240 / 730 490 / 730 480 / 480 Output Total 1275 / 1275 Balance -1035 / -545 490 / -545 480 / 480 Intake: Oral 240 / 730 490 / 730 480 / 480 Output: Urine 1275 / 1275 Other: Urine Color Yellow Yellow Urine Appearance Sediment Clear Comment pt states she voided a few hours ago Data Completed and Pending Pending Labs at Discharge: 10/27/25 10/27/25 10/27/25 06:15 06:40 07:49 WBC 7.44 RBC 4.24 Hgb 13.3 Hct 41.2 MCV 97 H MCH 31.4 MCHC 32.3 RDW 13.4 Plt Count 207 MPV 8.8 Immature Gran % 0.4 Neutrophils % 55.3 Lymphocytes % 19.8 Monocytes % 7.7 Eosinophils % 16.4 Basophils % 0.4 Nucleated RBC % 0.0 Absolute Neutrophils 4.12 Absolute Lymphocytes 1.47 Absolute Monocytes 0.57 Absolute Eosinophils 1.22 H Absolute Basophils 0.03 ABG Sample Site ABG pH ABG pCO2 ABG pO2 ABG HCO3 ABG Total CO2 ABG O2 Saturation ABG Base Excess VBG pH 7.27 L 7.26 L VBG pCO2 69 H* 73 H* VBG pO2 98 42 VBG HCO3 32 H 33 H VBG Total CO2 29 30 H VBG O2 Saturation 98 74 VBG Base Excess 5 H 5 H Oxygen Liter Flow Sodium 143 Potassium 4.3 Chloride 105 Carbon Dioxide 33.6 H Anion Gap 4.4 BUN 11 Creatinine 0.69 Est GFR (CKD-EPI 2020) 86.54 Glucose 87 Calcium 8.7 Magnesium 2.1 Total Bilirubin AST ALT Alkaline Phosphatase Troponin I 13 17 NT-Pro-B Natriuret Pep 69 Total Protein Albumin B. divergens/MO-1 PCR Babesia duncani (PCR) Babesia microti DNA PCR Lyme Disease Antibody COVID-19 Source Nasopharynx SARS-CoV-2 (PCR) Negative E.chaffeensis DNA (PCR) E.ewingii/canis DNA PCR E.muris eauclairensis (PCR) Influenza Type A (PCR) Negative Influenza Type B (PCR) Negative RSV (PCR) Negative A. phagocytophilum (PCR) Blood B. miyamotoi (PCR) 10/27/25 10/27/25 10/28/25 08:56 11:01 05:37 WBC 6.55 RBC 3.63 L Hgb 11.2 D Hct 35.4 L MCV 98 H MCH 30.9 MCHC 31.6 L RDW 13.2 Plt Count 190 MPV 9.1 Immature Gran % 0.5 Neutrophils % 78.0 Lymphocytes % 12.1 Monocytes % 8.4 Eosinophils % 0.8 Basophils % 0.2 Nucleated RBC % 0.0 Absolute Neutrophils 5.12 Absolute Lymphocytes 0.79 L Absolute Monocytes 0.55 Absolute Eosinophils 0.05 Absolute Basophils 0.01 ABG Sample Site ABG pH ABG pCO2 ABG pO2 ABG HCO3 ABG Total CO2 ABG O2 Saturation ABG Base Excess VBG pH 7.25 L 7.31 VBG pCO2 72 H* 61 H VBG pO2 37 47 VBG HCO3 32 H 31 H VBG Total CO2 29 28 VBG O2 Saturation 65 83 VBG Base Excess 4 H 4 H Oxygen Liter Flow Sodium 144 Potassium 4.3 Chloride 106 Carbon Dioxide 34.3 H Anion Gap 3.7 BUN 17 Creatinine 0.68 Est GFR (CKD-EPI 2020) 88.00 Glucose 111 H Calcium 8.2 L Magnesium 2.1 Total Bilirubin 0.30 AST 11 ALT 9 L Alkaline Phosphatase 61 Troponin I NT-Pro-B Natriuret Pep Total Protein 5.5 L Albumin 3.4 B. divergens/MO-1 PCR Pending Babesia duncani (PCR) Pending Babesia microti DNA PCR Pending Lyme Disease Antibody Negative COVID-19 Source SARS-CoV-2 (PCR) E.chaffeensis DNA (PCR) Pending E.ewingii/canis DNA PCR Pending E.muris eauclairensis (PCR) Pending Influenza Type A (PCR) Influenza Type B (PCR) RSV (PCR) A. phagocytophilum (PCR) Pending Blood B. miyamotoi (PCR) Pending 10/29/25 10/30/25 10/30/25 05:50 06:10 09:45 WBC 6.09 7.84 RBC 4.27 4.13 Hgb 13.4 D 13.0 Hct 42.4 39.5 MCV 99 H 96 H MCH 31.4 31.5 MCHC 31.6 L 32.9 RDW 13.5 12.7 Plt Count 234 220 MPV 9.1 9.0 Immature Gran % 0.3 0.4 Neutrophils % 59.8 88.3 Lymphocytes % 23.8 8.0 Monocytes % 5.7 3.2 Eosinophils % 9.7 0.1 Basophils % 0.7 0.0 Nucleated RBC % 0.0 0.0 Absolute Neutrophils 3.64 6.92 H Absolute Lymphocytes 1.45 0.63 L Absolute Monocytes 0.35 0.25 Absolute Eosinophils 0.59 0.01 Absolute Basophils 0.04 0.00 ABG Sample Site Left Radial ABG pH 7.45 ABG pCO2 47 H ABG pO2 69 L ABG HCO3 33 H ABG Total CO2 29 H ABG O2 Saturation 95 ABG Base Excess 9 H VBG pH VBG pCO2 VBG pO2 VBG HCO3 VBG Total CO2 VBG O2 Saturation VBG Base Excess Oxygen Liter Flow 1 Sodium 145 Potassium 4.1 Chloride 105 Carbon Dioxide 32.8 H Anion Gap 7.2 BUN 19 Creatinine 0.80 Est GFR (CKD-EPI 2020) 72.95 Glucose 112 H Calcium 8.6 Magnesium Total Bilirubin 0.40 AST 13 ALT 10 Alkaline Phosphatase 70 Troponin I NT-Pro-B Natriuret Pep Total Protein 6.4 Albumin 3.8 B. divergens/MO-1 PCR Babesia duncani (PCR) Babesia microti DNA PCR Lyme Disease Antibody COVID-19 Source SARS-CoV-2 (PCR) E.chaffeensis DNA (PCR) E.ewingii/canis DNA PCR E.muris eauclairensis (PCR) Influenza Type A (PCR) Influenza Type B (PCR) RSV (PCR) A. phagocytophilum (PCR) Blood B. miyamotoi (PCR) PFSH All Active Problems (Updated 10/29/25 @ 06:17 by Lonny Marshall MD) Acute respiratory failure with hypoxia and hypercarbia (Acute) Chronic hypoxic respiratory failure, on home oxygen therapy (Acute) COPD exacerbation (Acute) Acute hypoxemic respiratory failure (Acute) Cellulitis (Acute) Hx of mcc use of blood thinners (Acute) Obesity (Chronic) Atrial flutter, paroxysmal (Acute) Back pain (Acute) Venous stasis dermatitis (Chronic) Smoking (Acute) Hypertension (Chronic) Vitamin D deficiency (Acute) Dysuria (Acute) Lymphedema (Acute) Screening for colon cancer (Acute) Edema of both lower extremities (Acute) Medical History (Updated 10/29/25 @ 06:17 by Lonny Marshall MD) COPD with acute exacerbation Sleep apnea Essential hypertension Candidiasis of skin Osteoarthritis 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 Pain in thoracic spine Cellulitis of right lower limb Cardiomegaly Presbyopia Pulmonary embolism (~12/16/21) Morbid obesity 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, on suboxone Hypoxia Pneumonia due to 2019 novel coronavirus SARS-CoV-2 positive COPD (chronic obstructive pulmonary disease) Surgical History H/O total hysterectomy History of femur fracture hardware in femur Family History Mother Diabetes Father Hypertension Social History Smoking/Tobacco Use Status: Current every day Tobacco Type: e-cigarettes Counseling given: provider counseling and support medications Smoking risk assessment performed?: Yes Alcohol Intake: former Drug use: Current Sobriety Substance use type: former substance user Details: Currently on Suboxone Housing: apartment Do you feel safe at home: Yes Do you feel safe in your relationship?: Yes Time Spent with Patient Time Spent with Patient: <45 minutes Time was spent: preparing to see the patient(eg.review tests), obtaining and/or reviewing separately otained hiistory, ordering medications,tests, procedures, referring, communicating with other health career and technology education teacher, indepentently interpreting results, counseling the patient and care coordination
--- NOTE | 2025-10-31 11:57 | PDOC.HHF2F ---
Date of service: 10/31/25 Time of Service: 11:57 Home Health Referral Home Health Orders Clinical synopsis of why skilled professionals are needed: 59 year old woman with hiostry of COPD on 1 liter of oxygen at home, active vaping, pAfib and h/o PE on apixaban, with chronic lower extremity edema and venous stasis who presented October 27 with 2 days of worsening shortness of breath. This was her 4th ED visit and 3rd admission, in the last 30 days. Troponins were negative. She was hypoxic above her baseline and she was initially hypercarbic, requiring BiPAP therapy in the ICU her first night. Steroids were initially withheld as she had been on a prolonged taper, but they were started 10/29 and her wheezing and air movement clearly improved. Echocardiogram did show diastolic dysfunction, but she did not appear to be fluid overloaded and her home furosemide dose was continued. Her oxygen need was at baseline 0.5-1LPM at rest and 1-2LMP with exertion on the morning of discharge. Smoking/vaping cessation and med adherence were emphasized. She declined medical therapy for this. She was seen by Dr. Marshall who recommended changing inhaler to high dose Trelegy (adding inhaled steroid to LAMA/LABA) and steroid taper. He noted the high eosinophilia and felt she likely has asthma/COPD overlap and may benefit from biologic therapy. She should be evaluated for better breathers program with home health and follow up with pulmonology was made in 1 week. Home health nursing and PT also recommended after evaluation. Medical diagnosis necessitation home health referral: respiratory failure, ambulatory disfunction, COPD Registered Nurse: Check all that apply Instruct on new or changed medication(s)/assess compliance: Ordered Assess for exacerbation of medical condition, instruct patient/caregivers on signs and symptoms to report for early detection: Ordered Physical Therapist: Check all that apply Increase strength & endurance for safe mobility at home: Ordered To design/establish home maintenance program: Ordered Home safety evaluation and teaching/gait training including stair management (if applicable): Ordered Slate Mixer: Assist with community resources: Ordered Assist with longterm care planning: Ordered Home Bound Status Requires the aid of supportive device (check all that apply): Cane and Wheelchair Describe why leaving home would require a considerable and taxing effort: Requires frequent rest periods and Oxygen Encounter Date and Reason: I certify that a FTF encounter for this patient was performed on October 31, 2025 and that such encounter was related to the primary reason the patient requires home health services. The encounter was conducted in the following manner: By me as the certifying physician, ENERGY CONSERVATION TECHNICIAN, PA or By an inpatient physician, ENERGY CONSERVATION TECHNICIAN or PA during an inpatient stay who communicated findings to me, Certification And Authentication I certify that I composed the above information based on my clinical judgment relating to this patient's medical condition and, if applicable, clinical findings communicated to me by the NPP or inpatient physician who performed the FTF encounter. Name of Provider that will be monitoring home health services: Javier Tyler
[2025-10-31 14:32] LABS: B. miyamotoi PCR Negative (Negative); Babesia divergens/MO-1 Negative (Negative); Ehrlichia muris eauclairensis Negative (Negative)
== END 2025-10-31 13:20 | disposition home health service (06) | DRG 190 ==
LOC: ER 14:16 → ICU 10-28 07:24 → MS 10-29 06:56 → ICU 10-31 00:35 → MS 10-31 00:42
PROVIDERS: Internal Medicine Pulmonary Disease; Admitting Provider Family Medicine; Emergency Provider Emergency Medicine; PCP Student in an Organized Health Care Education/Training Program; Responsible Provider Family Medicine; Visit Provider Family Medicine
DX: J44.1 Chronic obstructive pulmonary disease with (acute) exacerbation (principal); J96.21 Acute and chronic respiratory failure with hypoxia; J96.22 Acute and chronic respiratory failure with hypercapnia; I48.92 Unspecified atrial flutter; J45.51 Severe persistent asthma with (acute) exacerbation; F11.20 Opioid dependence, uncomplicated; Z68.41 Body mass index [BMI] 40.0-44.9, adult; F17.290 Nicotine dependence, other tobacco product, uncomplicated; Z99.81 Dependence on supplemental oxygen; Z79.01 Long term (current) use of anticoagulants; Z86.711 Personal history of pulmonary embolism; E66.9 Obesity, unspecified; I89.0 Lymphedema, not elsewhere classified; I87.2 Venous insufficiency (chronic) (peripheral); E55.9 Vitamin D deficiency, unspecified; G47.30 Sleep apnea, unspecified; I10 Essential (primary) hypertension; E66.01 Morbid (severe) obesity due to excess calories; I48.0 Paroxysmal atrial fibrillation; R45.89 Other symptoms and signs involving emotional state
CPT/HCPCS: 00123; 36415; 80048; 80053; 82805; 87637; 87798; 93005; 93308; 94640; 94761; 96361; 96365; 96366; 97161; 97530; 99291; 36600; 71045; 83735; 83880; 84484; 85025; 86618; 93010; 93306; 94660; 94664; 94667; 94760; 99222; 99231; 99232; 99238; G0378; J1938; J2270; J3490; J7512; J7613; J7620